=== PATIENT | female | born 1940 | race Caucasian/White ===

== ENCOUNTER 2016-09-02 12:30 | Emergency (ER) | payer OTHER ==
[~2016-09-02] VITALS: Ht 167.6 cm; Wt 113.7 kg
[~2016-09-02 12:30] MED LIST: AMOX500C3 PO; CALC0.2510 PO; CRAN500C6 PO; CYAN100T PO; DILT-202 PO; FURO80TA63 PO; INSUINJ4 SQ; ISOS30TA3 PO; LEVA1.258 INH; LOSA1TAB38 PO; LOVA40TA3 PO; NITR0.4S UT; NVLGI SC; OMEP20TA PO; TPRSR/25 PO; VSC/5 PO; WARF4TAB PO; WARF4TAB8 PO
[2016-09-02 12:39] VITALS: TEMP 36.7; Ht 167.6 cm; Wt 113.7 kg
[2016-09-02] MEDS ORDERED: ALBUT/IPRATROP 3MG/0.5MG NEB 3 ML VIAL INH STA (12:54)
[2016-09-02 12:58] VITALS: O2SAT 100
--- NOTE | 2016-09-02 13:04 | EMERGENCY ROOM VISIT NOTE ---
History Report prepared by Natalya: Davis Metcalf Under the Supervision of: Dr. Antonio Toro D.O. First contact with patient: 12:47 Chief Complaint: SHORTNESS OF BREATH Stated Complaint: IRREGULAR HEART BEAT Nursing Triage Summary: pt presents to ed via als from home with c/o shortness of breath. pt states began at 0800 with sudden onset of sob. pt states having a little pain under left breast. pt hx of pe in 2001. pt states has been feeling tired more frequently. denies cough, fever, any other symptoms. History of Present Illness The patient is a 76 year old female who presents to the Emergency Room with complaints of sudden shortness of breath that started around 0800 this morning. Per the nursing staff, the patient reports feeling fine around 0630 when she first woke up. She also felt fine when she went to bed last night. The patient says she also could not walk when the shortness of breath started. She says she "could not breathe" and lying flat makes the shortness of breath worse. She did not take anything for her symptom, and she was not given anything on the way in. She says she currently is not as short of breath as before, but it still is hard to breathe. The patient is on inhalers, but she was not given inhalers on the way in either. The patient denies a fever, cough, nausea, vomiting, abdominal pain, or any new swelling in her legs. She has chronic problems with urinating, and she has been treated for this by physical therapy. The patient has a history of COPD, pulmonary embolism, and a heart attack. She has no CHF or cancer history. The patient is diabetic, and she has a chronic problem with fluid in her legs. The patient is on blood thinners. She has never been on dialysis. Source of History: patient, nursing staff Onset: 0800 this morning Position: other (global - shortness of breath) Symptom Intensity: "could not breathe" Timing: other (sudden) Modifying Factors (Worsening): other (lying flat) Associated Symptoms: No abdominal pain, No cough, No fevers, No nausea, No vomiting Note: Associated symptoms: Hard to walk. Review of Systems See HPI for pertinent positives & negatives. A total of 10 systems reviewed and were otherwise negative. Past Medical & Surgical Medical Problems: (1) Appendectomy (2) Asthma (3) C. 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 Family History FHx: heart disease Social History Smoking Status: Former Smoker Alcohol Use: none Drug Use: none Marital Status: Housing Status: lives alone Occupation Status: retired Current/Historical Medications Scheduled Beclomethasone Dip (Qvar), Unknown Dose INH UD Calcitriol (Rocaltrol Cap), 1 CAP PO DAILY Cranberry (Vaccinium Macrocarp (Cranberry), 400 MG PO DAILY Cyanocobalamin (Vitamin B-12), 100 MCG PO DAILY Diltiazem HCl (Diltiazem Cd), 120 MG PO DAILY Furosemide (Lasix), 1 TAB PO BID Insulin Glargine (Lantus Solostar Pen), 11 UNIT SQ QPM Insulin Glargine (Lantus Solostar Pen), 25 UNIT SQ QAM Isosorbide Mononitrate Ext Rel (Imdur Ext Rel), 30 MG PO DAILY Levofloxacin (Levaquin), 500 MG PO DAILY Losartan Potassium (Cozaar), 100 MG PO DAILY Lovastatin (Mevacor), 80 MG PO HS Metoprolol Succinate (Metoprolol Succinate ER), 25 MG PO DAILY Omeprazole (Omeprazole), 1 TAB PO DAILY Solifenacin (Vesicare), 5 MG PO DAILY Umeclidinium-Vilanterol (Anoro Ellipta 62.5-25 Mcg/INH), 1 DOSE INH UD Warfarin Sod (Jantoven), 2 MG PO 2XWK Warfarin Sodium (Coumadin), 1 TAB PO 5XWK Scheduled PRN Insulin Aspart (Novolog), UNITS SC ACHS PRN for sliding scale Levalbuterol Hcl (Levalbuterol Hcl), 1 VIAL INH Q4 PRN for SOB/Wheezing Nitroglycerin (Nitrostat), 0.4 MG UT PRN PRN for Chest Pain Allergies Coded Allergies: Acetaminophen (Verified Allergy, Unknown, UNKNOWN, 09/02/16) INFO FROM PT Codeine (Verified Allergy, Unknown, UNKNOWN, 09/02/16) INFO FROM PT Aspirin (Verified Adverse Reaction, Intermediate, (ULCER), 09/02/16) Venlafaxine (Verified Adverse Reaction, Intermediate, DROWINESS/ CONFUSION , 09/02/16) Cephalexin (Verified Adverse Reaction, Mild, DROWSINESS, UNABLE TO DRIVE, UPSET STOMACH, 09/02/16) Oxycodone (Verified Adverse Reaction, Mild, n/v, 09/02/16) gmg Physical Exam Vital Signs Date Time Temp Pulse Resp B/P Pulse Ox O2 Delivery O2 Flow Rate FiO2 09/02/16 17:16 79 20 177/61 97 Room Air 09/02/16 15:55 85 16 173/104 94 Room Air 09/02/16 13:56 101 25 166/86 96 Nasal Cannula 3.0 09/02/16 12:59 76 09/02/16 12:58 100 Nasal Cannula 2.0 09/02/16 12:46 99 09/02/16 12:39 36.7 86 24 204/71 99 Room Air Physical Exam GENERAL: Patient is awake, alert, mildly anxious appearing but comfortable. Does not appear to be in pain. EYES: The conjunctivae are clear. The pupils are round and reactive. EARS, NOSE, MOUTH AND THROAT: The nose is without any evidence of any deformity. Mucous membranes are moist tongue is midline NECK: The neck is nontender and supple. RESPIRATORY: Lung sounds diminished at both bases. No tachypnea or conversational dyspnea noted. CARDIOVASCULAR: Regular rate and rhythm noted there no murmurs rubs or gallops normal S1 normal S2 GASTROINTESTINAL: The abdomen is soft. Bowel sounds are present in all quadrants. Abdomen is nontender MUSCULOSKELETAL/EXTREMITIES: There is no evidence of gross deformity full range of motion is noted in the hips and shoulders SKIN: Pedal edema bilaterally. NEUROLOGIC: Patient is awake alert and oriented x3. Medical Decision & Procedures ER Provider Diagnostic Interpretation: X ray results and stated below per my interpretation and radiology interpretation. Other radiology results per my review and radiologist interpretation: CHEST ONE VIEW PORTABLE CLINICAL HISTORY: EVALUATE RESPIRATORY DISTRESS. DYSPNEA chest pain COMPARISON STUDY: 07/11/2016 FINDINGS: Mild stable cardiomegaly. Chronic ankle prominence left base. Lungs otherwise are clear. Potential developing nodular density right midlung. No focal infiltrate. IMPRESSION: Chronic change. Mild stable cardiomegaly. Potential developing nodular density right midlung with CT of the chest recommended Electronically signed by: Jaleel Xie M.D. 09/02/2016 1:40 PM CHEST CTA for PULMONARY ARTERIES CT DOSE: 461.08 mGy.cm HISTORY: Chest pain dyspnea TECHNIQUE: Multiaxial CT images of the chest were performed following the intravenous administration of contrast to evaluate the pulmonary arteries. Maximal intensity projection images were also obtained. COMPARISON STUDY: Chest series dated 09/02/2016 FINDINGS: There is a normal caliber thoracic aorta with no evidence for dissection. There is no evidence for pulmonary embolus. No no focal infiltrate. Mild emphysematous change. Scattered pleural and parenchymal scarlike densities. 9 mm nodular density anterior aspect right upper lobe transaxial image 203. This appears to relate to the density seen on chest filming. PET scanning for solitary pulmonary nodule is suggested. Moderate distal esophageal wall thickening IMPRESSION: 1. Study is negative for pulmonary embolus. 2. Lungs are considered clear. 3. Moderate emphysematous change with minimal scattered atelectatic and/or fibrotic changes considered chronic. 4. Moderate cardiac megaly. 5. 9 mm solitary pulmonary nodule anterior aspect right upper lobe. When the patient's current symptoms have improved or resolved, PET/CT scanning would be beneficial to exclude a metabolically active parenchymal nodule. 6. note is made of moderate esophageal wall thickening of the distal one third of the esophagus. Endoscopic evaluation is indicated on a routine outpatient basis. Electronically signed by: Jaleel Xie M.D. 09/02/2016 2:30 PM Laboratory Results 09/02/16 12:44 Red Blood Count 3.80, Mean Corpuscular Volume 91.1, Mean Corpuscular Hemoglobin 30.5, Mean Corpuscular Hemoglobin Concent 33.5, Mean Platelet Volume 10.5, Neutrophils (%) (Auto) 77.9, Lymphocytes (%) (Auto) 12.1, Monocytes (%) (Auto) 9.6, Eosinophils (%) (Auto) 0.2, Basophils (%) (Auto) 0.1, Neutrophils # (Auto) 6.47, Lymphocytes # (Auto) 1.01, Monocytes # (Auto) 0.80, Eosinophils # (Auto) 0.02, Basophils # (Auto) 0.01 09/02/16 12:44 Test 09/02/16 12:44 09/02/16 12:59 09/02/16 13:05 White Blood Count 8.32 K/uL (4.8-10.8) Red Blood Count 3.80 M/uL (4.2-5.4) Hemoglobin 11.6 g/dL (12.0-16.0) Hematocrit 34.6 % (37-47) Mean Corpuscular Volume 91.1 fL (80-100) Mean Corpuscular Hemoglobin 30.5 pg (25-34) Mean Corpuscular Hemoglobin Concent 33.5 g/dl (32-36) Platelet Count 111 K/uL (130-400) Mean Platelet Volume 10.5 fL (7.4-10.4) Neutrophils (%) (Auto) 77.9 % Lymphocytes (%) (Auto) 12.1 % Monocytes (%) (Auto) 9.6 % Eosinophils (%) (Auto) 0.2 % Basophils (%) (Auto) 0.1 % Neutrophils # (Auto) 6.47 K/uL (1.4-6.5) Lymphocytes # (Auto) 1.01 K/uL (1.2-3.4) Monocytes # (Auto) 0.80 K/uL (0.11-0.59) Eosinophils # (Auto) 0.02 K/uL (0-0.5) Basophils # (Auto) 0.01 K/uL (0-0.2) RDW Standard Deviation 47.9 fL (36.4-46.3) RDW Coefficient of Variation 14.4 % (11.5-14.5) Immature Granulocyte % (Auto) 0.1 % Immature Granulocyte # (Auto) 0.01 K/uL (0.00-0.02) Est Creatinine Clear Calc Drug Dose 37.1 ml/min Estimated GFR () 35.4 Estimated GFR (Non- 30.5 BUN/Creatinine Ratio 12.5 (10-20) Calcium Level 9.2 mg/dl (8.5-10.1) Total Bilirubin 0.9 mg/dl (0.2-1) Aspartate Amino Transf (AST/SGOT) 13 U/L (15-37) Alanine Aminotransferase (ALT/SGPT) 15 U/L (12-78) Alkaline Phosphatase 132 U/L (45-117) Total Creatine Kinase 74 U/L (26-192) Creatine Kinase MB < 0.5 ng/ml (0.5-3.6) Creatine Kinase MB Ratio (0-3.0) Troponin I < 0.015 ng/ml (0-0.045) Total Protein 6.8 gm/dl (6.4-8.2) Albumin 3.2 gm/dl (3.4-5.0) Globulin 3.6 gm/dl (2.5-4.0) Albumin/Globulin Ratio 0.9 (0.9-2) Bedside Hemoglobin 11.9 g/dl (12.0-16.0) Bedside Hematocrit 35 % (37-47) Bedside Sodium 137 mEq/L (135-144) Bedside Potassium 3.8 mEq/L (3.3-5.0) Bedside Chloride 97 mEq/L (101-112) Bedside Total CO2 27 mEq/l (24-31) Anion Gap 19.0 mmol/L (16-25) Bedside Blood Urea Nitrogen 20 mg/dl (7-18) Bedside Creatinine 1.4 mg/dl (0.6-1.3) Bedside Glucose (other) 259 mg/dl (70-99) Bedside Ionized Calcium (Kendy) 1.12 mmol/l (1.12-1.32) Urine Color YELLOW Urine Appearance CLOUDY (CLEAR) Urine pH 7.5 (4.5-7.5) Urine Specific [place] 1.007 (1.000-1.030) Urine Protein NEG (NEG) Urine Glucose (UA) 1+ (NEG) Urine Ketones NEG (NEG) Urine Occult Blood TRACE (NEG) Urine Nitrite NEG (NEG) Urine Bilirubin NEG (NEG) Urine Urobilinogen NEG (NEG) Urine Leukocyte Esterase MODERATE (NEG) Urine WBC (Auto) >30 /hpf (0-5) Urine RBC (Auto) 5-10 /hpf (0-4) Urine Hyaline Casts (Auto) 1-5 /lpf (0-5) Urine Epithelial Cells (Auto) 10-20 /lpf (0-5) Urine Bacteria (Auto) NEG (NEG) Laboratory results per my review. Medications Administered Medications (Trade) Dose Ordered Sig/Rose Route Start Time Stop Time Status Last Admin Dose Admin Albuterol/ Ipratropium 3 ml 3 ml NOW STAT INH 09/02/16 12:54 09/02/16 12:56 DC 09/02/16 13:07 3 ML Sodium Chloride (Nss 500ml) 500 ml @ 999 mls/hr Q31M STAT IV 09/02/16 13:46 09/02/16 14:16 DC 09/02/16 13:46 999 MLS/HR Levofloxacin (Levaquin / D5W) 750 mg NOW STAT IV 09/02/16 13:47 09/02/16 13:48 DC 09/02/16 14:24 750 MG Levofloxacin (Levaquin / D5W) 750 mg NOW STAT IV 09/02/16 15:48 09/02/16 15:50 DC 09/02/16 15:56 750 MG ECG Indication: SOB/dyspnea Rate (beats per minute): 78 Rhythm: normal sinus Findings: no ectopy, other (no acute ST segment abnormalities) Change: no significant change (from May 15 2016) ED Course 1250: The patient was evaluated in room B10. A complete history and physical examination were performed. 1254: Ordered Duoneb 3 ml INH. 1346: Ordered NSS 500 ml @ 999 mls/hr IV. 1347: Ordered Levaquin / D5W 750 mg IV. 1517: I reevaluated the patient and she is resting comfortably. The patient verbally expressed agreement and understanding of the treatment plan. The patient will be discharged. Medical Decision Additional history obtained from the nursing staff. The patient's history was concerning for respiratory difficulties. Differential diagnosis: Etiologies such as infections, reactive airway disease, pneumonia, pneumothorax , COPD, CHF, cardiac ischemia, pulmonary embolism, musculoskeletal, gastrointestinal, as well as others were entertained. The patient is a 76-year-old female who presented to the emergency department for evaluation of shortness of breath. I do feel the patient's condition is consistent with COPD. She was treated with bronchodilator therapy in emergency department. She was also treated with IV antibiotics for presumed urinary tract infection based on her urinalysis. I discussed patient's laboratory and radiographic studies with her. Given her pain as well as shortness of breath a CT the chest was also ordered. I discussed the results of the CT with her including the findings of pulmonary nodule as well as the findings and her esophagus. She was encouraged to rest and avoid any strenuous activity. She was encouraged to follow-up with her family doctor this week for reevaluation but return to the emergency department immediately if symptoms change worsen or if the need arises. Impression Primary Impression: COPD exacerbation Additional Impression: UTI (urinary tract infection) Scribe Attestation The scribe's documentation has been prepared under my direction and personally reviewed by me in its entirety. I confirm that the note above accurately reflects all work, treatment, procedures, and medical decision making performed by me. Departure Information Dispostion Home / Self-Care Prescriptions Levofloxacin (Levaquin) 500 Mg Tab 500 MG PO DAILY, #7 TAB Prov: Antonio Toro, DO 09/02/16 Referrals Kerry Waterman D.OMatthew (PCP) Forms HOME CARE DOCUMENTATION FORM, IMPORTANT VISIT INFORMATION Patient Instructions A Signature Page, COPD, My [facility], Urinary Tract Anatomy Ch Additional Instructions Continue all outpatient medications as prescribed. Rest and avoid any strenuous activity. Follow-up with your primary care physician tomorrow as scheduled. Return to the emergency department if symptoms worsen or if need arises. Discuss with your family further testing he might require such as a repeat scan of the chest when you're symptoms have improved as well as a follow-up appointment with the spa assistant manager to investigate the findings noted on the CAT scan of the chest today pertaining to your esophagus.
[2016-09-02 13:06] LABS: BASO % 0.1 %; BASO ABS # 0.01 K/uL (0-0.2); COMPLETE YES; EOS % 0.2 %; HEMATOCRIT 34.6 % (37-47); IG% 0.1 %; LYMPH % 12.1 %; LYMPH ABS # 1.01 K/uL (1.2-3.4); MEAN CELL VOLUME 91.1 fL (80-100); MEAN CORPUSCULAR HEMOGLOBIN 30.5 pg (25-34); MEAN CORPUSCULAR HGB CONC 33.5 g/dl (32-36); MEAN PLATELET VOLUME 10.5 fL (7.4-10.4); MONO % 9.6 %; NEUT % 77.9 %; PLATELET COUNT 111 K/uL (130-400); WHITE BLOOD COUNT 8.32 K/uL (4.8-10.8)
[2016-09-02 13:15] LABS: ISTAT CREATININE 1.4 mg/dl (0.6-1.3); ISTAT HEMOGLOBIN 11.9 g/dl (12.0-16.0); ISTAT IONIZED CALCIUM 1.12 mmol/l (1.12-1.32)
[2016-09-02 13:17] LABS: ALT/SGPT 15 U/L (12-78); BLOOD UREA NITROGEN 20 mg/dl (7-18); BUN/CREATININE RATIO 12.5 (10-20); CALCIUM 9.2 mg/dl (8.5-10.1); CARBON DIOXIDE 29 mmol/L (21-32); CHLORIDE 101 mmol/L (98-107); GLUCOSE 246 mg/dl (70-99); POTASSIUM 3.9 mmol/L (3.5-5.1); SODIUM 139 mmol/L (136-145)
[2016-09-02 13:22] LABS: ALB/GLOB RATIO 0.9 (0.9-2); ALKALINE PHOSPHATASE 132 U/L (45-117); AST/SGOT 13 U/L (15-37)
[2016-09-02 13:27] LABS: URINE APPEARANCE CLOUDY (CLEAR); URINE BILIRUBIN NEG (NEG); URINE COLOR YELLOW; URINE NITRITE NEG (NEG); URINE PH 7.5 (4.5-7.5); URINE SPECIFIC GRAVITY 1.007 (1.000-1.030); UROBILINOGEN NEG (NEG)
[2016-09-02 13:34] LABS: MANUAL MICROSCOPIC REQUIRED? NO; REVIEW REQ? NO
--- NOTE | 2016-09-02 13:42 | DIAGNOSTIC IMAGING REPORT ---
CHEST ONE VIEW PORTABLE CLINICAL HISTORY: EVALUATE RESPIRATORY DISTRESS. DYSPNEA chest pain COMPARISON STUDY: 07/11/2016 FINDINGS: Mild stable cardiomegaly. Chronic ankle prominence left base. Lungs otherwise are clear. Potential developing nodular density right midlung. No focal infiltrate. IMPRESSION: Chronic change. Mild stable cardiomegaly. Potential developing nodular density right midlung with CT of the chest recommended Electronically signed by: Jaleel Xie M.D. 09/02/2016 1:40 PM
[2016-09-02] MEDS ORDERED: SODIUM CHLORIDE 0.9% 500ML 500 ML IV STA (13:46)
[2016-09-02] MEDS ORDERED: LEVAQUIN 750MG / 150ML D5W IV STA ×2 (13:47→15:48)
[2016-09-02] MEDS ORDERED: UMEC1AER INH (13:57)
[2016-09-02] MEDS ORDERED: QVRINH80 INH (13:57)
[2016-09-02] MEDS ORDERED: CRAN400C PO (13:57)
[2016-09-02] MEDS ORDERED: OPTIRAY 320 IV PRN (14:30)
--- NOTE | 2016-09-02 14:32 | DIAGNOSTIC IMAGING REPORT ---
CHEST CTA for PULMONARY ARTERIES CT DOSE: 461.08 mGy.cm HISTORY: Chest pain dyspnea TECHNIQUE: Multiaxial CT images of the chest were performed following the intravenous administration of contrast to evaluate the pulmonary arteries. Maximal intensity projection images were also obtained. COMPARISON STUDY: Chest series dated 09/02/2016 FINDINGS: There is a normal caliber thoracic aorta with no evidence for dissection. There is no evidence for pulmonary embolus. No no focal infiltrate. Mild emphysematous change. Scattered pleural and parenchymal scarlike densities. 9 mm nodular density anterior aspect right upper lobe transaxial image 203. This appears to relate to the density seen on chest filming. PET scanning for solitary pulmonary nodule is suggested. Moderate distal esophageal wall thickening IMPRESSION: 1. Study is negative for pulmonary embolus. 2. Lungs are considered clear. 3. Moderate emphysematous change with minimal scattered atelectatic and/or fibrotic changes considered chronic. 4. Moderate cardiac megaly. 5. 9 mm solitary pulmonary nodule anterior aspect right upper lobe. When the patient's current symptoms have improved or resolved, PET/CT scanning would be beneficial to exclude a metabolically active parenchymal nodule. 6. note is made of moderate esophageal wall thickening of the distal one third of the esophagus. Endoscopic evaluation is indicated on a routine outpatient basis. Electronically signed by: Jaleel Xie M.D. 09/02/2016 2:30 PM
[2016-09-02] MEDS ORDERED: LEVO-366 PO (15:28)
[2016-09-02 17:16] VITALS: BP 177/61; PULSE 79; O2SAT 97
[2016-09-14] MEDS ORDERED: FERR1TAB62 PO (13:03)
[2017-01-06] MEDS ORDERED: CLOT-51 TOP (17:09)
[2017-02-13] MEDS ORDERED: LVQ750 PO (16:14)
[2017-02-13] MEDS ORDERED: LCTX PO (16:14)
[2017-03-18] MEDS ORDERED: FURO80TA63 PO (15:02)
[2017-03-18] MEDS ORDERED: DXY100 PO (15:02)
[2017-03-18] MEDS ORDERED: BENZ100C7 PO (15:02)
[2017-03-18] MEDS ORDERED: FURO40TA3 PO (15:18)
[2017-03-26] MEDS ORDERED: LCTX PO (12:48)
[2017-03-26] MEDS ORDERED: LVQ750 PO (12:48)
[2017-08-13] MEDS ORDERED: LVQ500 PO (15:07)
[2017-08-13] MEDS ORDERED: DILT-202 PO (15:07)
[2017-08-13] MEDS ORDERED: FURO40TA3 PO (15:07)
[2017-08-13] MEDS ORDERED: IMDSR30 PO (15:07)
== END 2016-09-02 17:45 | disposition home or self-care (01) ==
LOC: EDBD 12:30 → C.EDB 12:34
DX: J44.1 Chronic obstructive pulmonary disease with (acute) exacerbation (principal); N39.0 Urinary tract infection, site not specified; I25.2 Old myocardial infarction; E11.9 Type 2 diabetes mellitus without complications; I12.9 Hypertensive chronic kidney disease with stage 1 through stage 4 chronic kidney disease, or unspecified chronic kidney disease; I48.91 Unspecified atrial fibrillation; J45.909 Unspecified asthma, uncomplicated; E11.22 Type 2 diabetes mellitus with diabetic chronic kidney disease; K21.9 Gastro-esophageal reflux disease without esophagitis; E11.42 Type 2 diabetes mellitus with diabetic polyneuropathy; N18.9 Chronic kidney disease, unspecified; E11.43 Type 2 diabetes mellitus with diabetic autonomic (poly)neuropathy; Z86.711 Personal history of pulmonary embolism; Z86.73 Personal history of transient ischemic attack (TIA), and cerebral infarction without residual deficits; Z79.01 Long term (current) use of anticoagulants; Z79.4 Long term (current) use of insulin; Z79.899 Other long term (current) drug therapy; Z87.891 Personal history of nicotine dependence

== ENCOUNTER 2016-09-07 02:48 | Inpatient (IN) | payer OTHER ==
[~2016-09-07] VITALS: Ht 166.4 cm; Wt 113.5 kg
[2016-09-07] VITALS (18 sets, daily range): BP systolic 101–176; BP diastolic 53–78; PULSE 63–81; TEMP 36.3–36.7; O2SAT 94–100; Ht 166.4 cm; Wt 113.5 kg
[~2016-09-07 02:48] MED LIST changes: -AMOX500C3 PO; +CRAN400C PO; -CRAN500C6 PO; +CRDCD120 PO; -DILT-202 PO; +LEVO-366 PO; +QVRINH80 INH; +UMEC1AER INH
--- NOTE | 2016-09-07 02:59 | EMERGENCY ROOM VISIT NOTE ---
History Report prepared by Natalya: Abbe Gagnon Under the Supervision of: Dr. Trsita Trivedi D.O. First contact with patient: 02:49 Chief Complaint: ILLNESS Stated Complaint: illness History of Present Illness The patient is a 76 year old female with a history of COPD who presents to the Emergency Room with complaints of persistent generalized weakness since she woke up to go to the bathroom tonight. The patient became weak and fell backwards into her bed. She was also short of breath and generally "felt funny. " The patient was not lightheaded, dizzy, or diaphoretic. The patient was unable to get up after she fell into her bed so she called an ambulance. She required a rolling walker to get to the ambulance. The patient was tired but felt fine when she went to sleep. She was active during the day. Source of History: patient Onset: tonight Position: other (generalized) Quality: other (weakness) Timing: other (persistent) Associated Symptoms: + SOB, No diaphoresis Note: No lightheaded or dizziness. Review of Systems See HPI for pertinent positives & negatives. A total of 10 systems reviewed and were otherwise negative. Past Medical & Surgical Medical Problems: (1) Appendectomy (2) Asthma (3) C. 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 Family History FHx: heart disease Social History Smoking Status: Former Smoker Alcohol Use: none Drug Use: none Marital Status: Housing Status: lives alone Occupation Status: retired Current/Historical Medications Scheduled Beclomethasone Dip (Qvar), 1 PUFF INH BID Calcitriol (Rocaltrol Cap), 0.25 MCG PO DAILY Cranberry (Vaccinium Macrocarp (Cranberry), 400 MG PO BID Cyanocobalamin (Vitamin B-12), 500 MCG PO DAILY Diltiazem Hcl Coated Beads (Cardizem Cd), 120 MG PO DAILY Furosemide (Lasix), 80 MG PO BID Insulin Glargine (Lantus), 25 UNITS SQ QAM Insulin Glargine (Lantus), 11 UNITS SQ EVENING MEAL Isosorbide Mononitrate Ext Rel (Imdur Ext Rel), 30 MG PO DAILY Levofloxacin (Levaquin), 500 MG PO DAILY Losartan Potassium (Cozaar), 50 MG PO DAILY Lovastatin (Mevacor), 80 MG PO HS Metoprolol Succinate (Metoprolol Succinate ER), 1,205 MG PO DAILY Omeprazole (Omeprazole), 20 MG PO DAILY Solifenacin (Vesicare), 5 MG PO DAILY Umeclidinium-Vilanterol (Anoro Ellipta 62.5-25 Mcg/INH), 1 PUFF INH DAILY Warfarin Sod (Jantoven), 2 MG PO 2XWK Warfarin Sodium (Coumadin), 4 MG PO 5XWK Scheduled PRN Insulin Aspart (Novolog), UNITS SC ACHS PRN for sliding scale Levalbuterol Hcl (Levalbuterol Hcl), 3 ML INH Q4 PRN for SOB/Wheezing Nitroglycerin (Nitrostat), 0.4 MG UT PRN PRN for Chest Pain Allergies Coded Allergies: Acetaminophen (Verified Allergy, Unknown, UNKNOWN, 09/02/16) INFO FROM PT Codeine (Verified Allergy, Unknown, UNKNOWN, 09/02/16) INFO FROM PT Aspirin (Verified Adverse Reaction, Intermediate, (ULCER), 09/02/16) Venlafaxine (Verified Adverse Reaction, Intermediate, DROWINESS/ CONFUSION , 09/02/16) Cephalexin (Verified Adverse Reaction, Mild, DROWSINESS, UNABLE TO DRIVE, UPSET STOMACH, 09/02/16) Oxycodone (Verified Adverse Reaction, Mild, n/v, 09/02/16) gmg Physical Exam Vital Signs Date Time Temp Pulse Resp B/P Pulse Ox O2 Delivery O2 Flow Rate FiO2 09/07/16 05:00 75 22 97 Room Air 09/07/16 04:39 77 17 169/87 100 Room Air 09/07/16 03:30 75 09/07/16 02:57 36.7 81 25 163/79 100 Room Air Physical Exam General: Morbidly obese female. HEENT: Head - normocephalic and atraumatic Pupils are equal, round, and reactive to light. Extraocular eye muscles are intact, and sclera are anicteric. Nose - moist nasal mucosa without discharge. Mouth - moist buccal mucosa. Oropharynx is nonerythematous and there is no tonsillar exudate or edema noted. Neck: Supple; no JVD, nuchal rigidity, cervical lymphadenopathy, or auscultated bruits. Heart: Regular rate and rhythm. There is a normal S1 and S2 with no murmurs, clicks, or gallops appreciated. Sounds are distant secondary to body habitus. Lungs: Clear to auscultation bilaterally with no wheezes, rales, or rhonchi. Abdomen: Soft, completely nontender, nondistended, with good bowel sounds. There are no palpable pulsatile masses or hepatosplenomegaly. There is no guarding, rigidity, or rebound noted. Extremities: No evidence of cyanosis, clubbing, or edema. There are easily palpable peripheral pulses. Bruising on both upper extremities. Skin: Pale, Skin is dry with poor turgor, no rashes. Rectal: Bright red blood. Medical Decision & Procedures ER Provider Diagnostic Interpretation: X-ray results as stated below per interpretation by me. ONE VIEW PORTABLE: Cardiomegaly. No pneumonia or pleural effusion. Laboratory Results 09/07/16 03:10 Red Blood Count 2.72, Mean Corpuscular Volume 88.6, Mean Corpuscular Hemoglobin 29.8, Mean Corpuscular Hemoglobin Concent 33.6, Mean Platelet Volume 10.0, Neutrophils (%) (Auto) 79.4, Lymphocytes (%) (Auto) 12.2, Monocytes (%) (Auto) 7.8, Eosinophils (%) (Auto) 0.0, Basophils (%) (Auto) 0.0, Neutrophils # (Auto) 5.52, Lymphocytes # (Auto) 0.85, Monocytes # (Auto) 0.54, Eosinophils # (Auto) 0.00, Basophils # (Auto) 0.00 09/07/16 03:10 Test 09/07/16 03:10 09/07/16 04:00 White Blood Count 6.95 K/uL (4.8-10.8) Red Blood Count 2.72 M/uL (4.2-5.4) Hemoglobin 8.1 g/dL (12.0-16.0) Hematocrit 24.1 % (37-47) Mean Corpuscular Volume 88.6 fL (80-100) Mean Corpuscular Hemoglobin 29.8 pg (25-34) Mean Corpuscular Hemoglobin Concent 33.6 g/dl (32-36) Platelet Count 125 K/uL (130-400) Mean Platelet Volume 10.0 fL (7.4-10.4) Neutrophils (%) (Auto) 79.4 % Lymphocytes (%) (Auto) 12.2 % Monocytes (%) (Auto) 7.8 % Eosinophils (%) (Auto) 0.0 % Basophils (%) (Auto) 0.0 % Neutrophils # (Auto) 5.52 K/uL (1.4-6.5) Lymphocytes # (Auto) 0.85 K/uL (1.2-3.4) Monocytes # (Auto) 0.54 K/uL (0.11-0.59) Eosinophils # (Auto) 0.00 K/uL (0-0.5) Basophils # (Auto) 0.00 K/uL (0-0.2) RDW Standard Deviation 46.1 fL (36.4-46.3) RDW Coefficient of Variation 14.2 % (11.5-14.5) Immature Granulocyte % (Auto) 0.6 % Immature Granulocyte # (Auto) 0.04 K/uL (0.00-0.02) Red Blood Cell Morphology Unremarkable Anion Gap 11.0 mmol/L (3-11) Estimated GFR () 24.1 Estimated GFR (Non- 20.8 BUN/Creatinine Ratio 25.2 (10-20) Calcium Level 8.1 mg/dl (8.5-10.1) Total Bilirubin 0.3 mg/dl (0.2-1) Aspartate Amino Transf (AST/SGOT) 6 U/L (15-37) Alanine Aminotransferase (ALT/SGPT) 17 U/L (12-78) Alkaline Phosphatase 82 U/L (45-117) Pro-B-Type Natriuretic Peptide 1277 pg/ml (0-1800) Total Protein 5.3 gm/dl (6.4-8.2) Albumin 2.3 gm/dl (3.4-5.0) Globulin 3.0 gm/dl (2.5-4.0) Albumin/Globulin Ratio 0.8 (0.9-2) Thyroid Stimulating Hormone (TSH) 3.450 uIu/ml (0.300-4.500) Urine Color YELLOW Urine Appearance TURBID (CLEAR) Urine pH 5.0 (4.5-7.5) Urine Specific [place] 1.012 (1.000-1.030) Urine Protein NEG (NEG) Urine Glucose (UA) 1+ (NEG) Urine Ketones NEG (NEG) Urine Occult Blood TRACE (NEG) Urine Nitrite NEG (NEG) Urine Bilirubin NEG (NEG) Urine Urobilinogen NEG (NEG) Urine Leukocyte Esterase LARGE (NEG) Urine WBC (Auto) >30 /hpf (0-5) Urine RBC (Auto) 0-4 /hpf (0-4) Urine Hyaline Casts (Auto) 1-5 /lpf (0-5) Urine Epithelial Cells (Auto) >30 /lpf (0-5) Urine Bacteria (Auto) NEG (NEG) Urine Pathogenic Casts /lpf (0) Urine Yeast (Auto) BUDDING (NONE PRSENT) Laboratory results per my review. Procedure Type and cross for 2 units of packed red blood cells. Transfuse 1 unit of packed blood cells ECG Indication: weakness Rate (beats per minute): 79 Rhythm: normal sinus Findings: no acute ischemic change, no ectopy ED Course 0255: Past medical records reviewed. The patient was evaluated in room B2. A complete history and physical exam was performed. An IV lock was initiated and labs were drawn as above. A twelve-lead EKG was obtained as described above. 0410: The patient denies blood loss or dark stools. She does have significant urinary frequency. 0420: Performed a rectal exam. The patient had bright red blood coming from her rectum. 0429: [facility] The [facility] will be evaluated. Medical Decision The patient is a 76 year old female who presents to the ED with generalized weakness. Differential diagnosis includes anxiety, dehydration, COPD exacerbation, anemia, cardiac dysrhythmia, or ACS. Laboratory interpretation: Hemoglobin 8.1 which is significantly decreased from 11.6 five days ago, no leukocytosis, platelet count 125, BUN 55, creatinine 2.2 up from 1.6 five days ago, glucose 269, LFTs normal, cardiac enzymes negative. Catheterized urinalysis: Yellow turbid urine, trace blood, large leukocyte esterase, greater than 30 white blood cells, negative bacteria, budding yeast. This is a 68-year-old female patient presents to the emergency department office had an onset of generalized weakness. The patient was noted to be significantly anemic. In fact, her hemoglobin dropped by more than 3 g in 5 days. The patient had no history consistent with blood loss anemia. However, when I performed a rectal exam, the patient had a large red blood clot coming from the rectum. At that point, the patient was typed and crossed for 2 units of packed red blood cells. [facility] and [facility] will evaluate for further management. Consults Time Called: [phone] Consulting Phys[facility] Returned Call: [phone]: [facility] The patient will be evaluated. Impression Primary Impression: Blood loss anemia Additional Impressions: GI bleeding, KARLEE (acute kidney injury) Critical Care I have personally spent greater than 30 minutes of critical care time in the direct management of this patient. This includes bedside care, interpretation of diagnostic studies, and testing, discussion with consultants, patient, and family members, and other required patient management activities. This 30 minutes is in excess of all separately billable procedures. Scribe Attestation The scribe's documentation has been prepared under my direction and personally reviewed by me in its entirety. I confirm that the note above accurately reflects all work, treatment, procedures, and medical decision making performed by me. Departure Information Dispostion Being Evaluated By Hospitalist Referrals Kerry aWterman D.O. (PCP) Patient Instructions A Signature Page, My [facility]
[2016-09-07 03:25] LABS: HEMATOCRIT 24.1 % (37-47); IG% 0.6 %; LYMPH % 12.2 %; LYMPH ABS # 0.85 K/uL (1.2-3.4); MEAN CELL VOLUME 88.6 fL (80-100); MEAN CORPUSCULAR HEMOGLOBIN 29.8 pg (25-34); MEAN CORPUSCULAR HGB CONC 33.6 g/dl (32-36); MONO % 7.8 %; NEUT % 79.4 %; PLATELET COUNT 125 K/uL (130-400); RED BLOOD COUNT 2.72 M/uL (4.2-5.4); WHITE BLOOD COUNT 6.95 K/uL (4.8-10.8)
[2016-09-07 03:45] LABS: ALT/SGPT 17 U/L (12-78); AST/SGOT 6 U/L (15-37); BLOOD UREA NITROGEN 55 mg/dl (7-18); BUN/CREATININE RATIO 25.2 (10-20); CALCIUM 8.1 mg/dl (8.5-10.1); CARBON DIOXIDE 25 mmol/L (21-32); CHLORIDE 107 mmol/L (98-107); GLUCOSE 269 mg/dl (70-99); POTASSIUM 3.8 mmol/L (3.5-5.1); SODIUM 143 mmol/L (136-145)
[2016-09-07] MEDS ORDERED: CALC0.2510 PO (03:51)
[2016-09-07 03:53] LABS: COMPLETE YES
[2016-09-07] MEDS ORDERED: INSDGI SQ ×2 (03:53→03:54)
[2016-09-07 03:55] LABS: ALB/GLOB RATIO 0.8 (0.9-2); ALKALINE PHOSPHATASE 82 U/L (45-117); CKMB/CK RATIO 2.4 (0-3.0)
[2016-09-07] MEDS ORDERED: DILT120C51 PO (04:03)
[2016-09-07] MEDS ORDERED: LOVA40TA43 PO (04:08)
[2016-09-07] MEDS ORDERED: CYAN500T PO (04:09)
[2016-09-07 04:44] LABS: URINE APPEARANCE TURBID (CLEAR); URINE BILIRUBIN NEG (NEG); URINE COLOR YELLOW; URINE EPITHELIAL CELL AUTO >30 /lpf (0-5); URINE NITRITE NEG (NEG); URINE SPECIFIC GRAVITY 1.012 (1.000-1.030); UROBILINOGEN NEG (NEG)
[2016-09-07 04:45] LABS: MANUAL MICROSCOPIC REQUIRED? NO; REVIEW REQ? YES
[2016-09-07] MEDS ORDERED: SODIUM CHLORIDE 0.9% 1000ML 1,000 ML IV SCH (05:00)
[2016-09-07] MEDS ORDERED: ALUMINUM/MAGNESIUM/SIMETH (MAALOX MAX) 30 ML UDC PO PRN (05:00)
[2016-09-07] MEDS ORDERED: ONDANSETRON INJ 2 MG/ML 2 ML VIAL IV PRN (05:00)
[2016-09-07] MEDS ORDERED: MAGNESIUM HYDROXIDE SUSP 30 ML UDC PO PRN (05:00)
[2016-09-07] MEDS ORDERED: PANTOprazole INJ 80 MG in DEXTROSE 5% 100ML IV STA (05:11)
[2016-09-07] MEDS ORDERED: GLUCOSE 40% GEL 15 GM TUBE PO PRN (05:15)
[2016-09-07] MEDS ORDERED: DEXTROSE 50% 50 ML SYR IV PRN (05:15)
[2016-09-07] MEDS ORDERED: GLUCOSE 10 TABS/TUBE PO PRN (05:15)
[2016-09-07] MEDS ORDERED: LEVALBUTEROL 1.25MG/3ML NEB INH PRN (05:15)
[2016-09-07] MEDS ORDERED: GLUCAGON FOR INJ 1 MG VIAL SQ PRN (05:15)
[2016-09-07 05:20] LABS: INR 2.6 (0.9-1.1); PROTHROMBIN TIME (PATIENT) 28.5 SECONDS (9.0-12.0)
[2016-09-07] MEDS ORDERED: PHARMACY GLYCEMIC MGMT CONSULT PRN (05:23)
--- NOTE | 2016-09-07 05:40 | History and Physical ---
History & Physical Date & Time of Service: Sep 07, 2016 at 05:12 Chief Complaint: illness Primary Care Physician: Kerry Waterman D.O. History of Present Illness Source: patient, clinic records, hospital records This is a 76 year old female with PMH of CAD, paroxysmal A. Fib on anticoagulation, significant COPD requiring nocturnal O2, insulin-dependent DM2 , CKD stage 3, chronic diastolic CHF, HTN, HLD presents to the ER with dizziness , weakness and generally feeling bad. She states that she was here in the ER on September 02 with difficulty breathing, likely from an exacerbation of her COPD - she was sent home; was seen by primary care as an outpatient and given prednisone. Finished this course - she presented here today because of dizziness , she tried to get out of bed and she fell back into bad; she felt generally weak and had to call EMS to bring her to the ER. Upon presentation here, it was noted that she had a significant drop in her Hgb level as well as a rise in her creatinine. She did not recall any bleeding from anywhere. During exam by ER physician, it was noted patient had blood clot and bright red blood per rectum. Patient states she feels weak and dehydrated. No chest pain. Breathing status is improved from a few days ago. Past Medical/Surgical History Medical Problems: (1) Appendectomy Status: Resolved (2) Asthma Status: Chronic (3) C. difficile colitis Status: Resolved (4) Chronic kidney disease Status: Chronic (5) COPD (chronic obstructive pulmonary disease) Status: Chronic (6) CVA (cerebral vascular accident) Status: Chronic (7) Diabetes mellitus, type II Status: Chronic (8) Gastroparesis Status: Chronic (9) GERD (gastroesophageal reflux disease) Status: Chronic (10) Hyperlipidemia Status: Chronic (11) Hypertension Status: Chronic (12) New onset atrial fibrillation Status: Resolved (13) Pulmonary embolism Status: Chronic (14) Total replacement of hip Status: Resolved Family History FHx: heart disease Social History Smoking Status: Never Smoker Drug Use: none Marital Status: Housing status: lives alone Occupational Status: retired Immunizations History of Influenza Vaccine: N/A Influenza Vaccine Date: May 06, 2013 History of Tetanus Vaccine?: utd History of Pneumococcal: Yes Pneumococcal Date: January 02, 2003 History of Hepatitis B Vaccine: No Multi-Drug Resistant Organisms History of MDRO: No Allergies Coded Allergies: Acetaminophen (Verified Allergy, Unknown, UNKNOWN, 09/02/16) INFO FROM PT Codeine (Verified Allergy, Unknown, UNKNOWN, 09/02/16) INFO FROM PT Aspirin (Verified Adverse Reaction, Intermediate, (ULCER), 09/02/16) Venlafaxine (Verified Adverse Reaction, Intermediate, DROWINESS/ CONFUSION , 09/02/16) Cephalexin (Verified Adverse Reaction, Mild, DROWSINESS, UNABLE TO DRIVE, UPSET STOMACH, 09/02/16) Oxycodone (Verified Adverse Reaction, Mild, n/v, 09/02/16) gmg Home Medications Scheduled Beclomethasone Dip (Qvar), 1 PUFF INH BID Calcitriol (Rocaltrol Cap), 0.25 MCG PO DAILY Cranberry (Vaccinium Macrocarp (Cranberry), 400 MG PO BID Cyanocobalamin (Vitamin B-12), 500 MCG PO DAILY Diltiazem Hcl Coated Beads (Cardizem Cd), 120 MG PO DAILY Furosemide (Lasix), 80 MG PO BID Insulin Glargine (Lantus), 25 UNITS SQ QAM Insulin Glargine (Lantus), 11 UNITS SQ EVENING MEAL Isosorbide Mononitrate Ext Rel (Imdur Ext Rel), 30 MG PO DAILY Levofloxacin (Levaquin), 500 MG PO DAILY Losartan Potassium (Cozaar), 50 MG PO DAILY Lovastatin (Mevacor), 80 MG PO HS Metoprolol Succinate (Metoprolol Succinate ER), 1,205 MG PO DAILY Omeprazole (Omeprazole), 20 MG PO DAILY Solifenacin (Vesicare), 5 MG PO DAILY Umeclidinium-Vilanterol (Anoro Ellipta 62.5-25 Mcg/INH), 1 PUFF INH DAILY Warfarin Sod (Jantoven), 2 MG PO 2XWK Warfarin Sodium (Coumadin), 4 MG PO 5XWK Scheduled PRN Insulin Aspart (Novolog), UNITS SC ACHS PRN for sliding scale Levalbuterol Hcl (Levalbuterol Hcl), 3 ML INH Q4 PRN for SOB/Wheezing Nitroglycerin (Nitrostat), 0.4 MG UT PRN PRN for Chest Pain Review of Systems Constitutional: + fatigue, + weakness, No chills, No fever Respiratory: + shortness of breath (closer to baseline), No cough, No sputum Cardiovascular: + edema (chronic), No chest pain, No orthopnea, No palpitations Abdomen: No diarrhea, No nausea, No pain, No vomiting Musculoskeletal: No joint pain, No muscle pain Genitourinary - Female: + problem reported (dark urine), No dysuria, No urinary frequency, No urinary urgency Neurologic: + balance problems, + vertigo, + weakness, No memory loss, No numbness/tingling, No paralysis Allergic / Immunologic: No environmental allergies, No seasonal allergies Physical Exam Vital Signs Date Time Temp Pulse Resp B/P Pulse Ox O2 Delivery O2 Flow Rate FiO2 09/07/16 04:39 77 17 169/87 100 Room Air 09/07/16 02:57 36.7 81 25 163/79 100 Room Air General Appearance: no apparent distress Head: normocephalic, atraumatic ENT: + pertinent finding (dry mucous membranes) Respiratory/Chest: lungs clear, normal breath sounds, no respiratory distress, no accessory muscle use Cardiovascular: regular rate, rhythm, no murmur Abdomen/GI: normal bowel sounds, non tender, soft Extremities/Musculoskelatal: + pertinent finding (+1 pitting edema b/l LE) Neurologic/Psych: no motor/sensory deficits, alert, normal mood/affect Skin: normal color Lymphatic: no adenopathy Diagnostics Laboratory Results Results Past 24 Hours Test 09/07/16 03:10 09/07/16 04:00 09/07/16 04:59 Range/Units White Blood Count 6.95 4.8-10.8 K/uL Red Blood Count 2.72 4.2-5.4 M/uL Hemoglobin 8.1 12.0-16.0 g/dL Hematocrit 24.1 37-47 % Mean Corpuscular Volume 88.6 80-100 fL Mean Corpuscular Hemoglobin 29.8 25-34 pg Mean Corpuscular Hemoglobin Concent 33.6 32-36 g/dl Platelet Count 125 130-400 K/uL Mean Platelet Volume 10.0 7.4-10.4 fL Neutrophils (%) (Auto) 79.4 % Lymphocytes (%) (Auto) 12.2 % Monocytes (%) (Auto) 7.8 % Eosinophils (%) (Auto) 0.0 % Basophils (%) (Auto) 0.0 % Neutrophils # (Auto) 5.52 1.4-6.5 K/uL Lymphocytes # (Auto) 0.85 1.2-3.4 K/uL Monocytes # (Auto) 0.54 0.11-0.59 K/uL Eosinophils # (Auto) 0.00 0-0.5 K/uL Basophils # (Auto) 0.00 0-0.2 K/uL RDW Standard Deviation 46.1 36.4-46.3 fL RDW Coefficient of Variation 14.2 11.5-14.5 % Immature Granulocyte % (Auto) 0.6 % Immature Granulocyte # (Auto) 0.04 0.00-0.02 K/uL Red Blood Cell Morphology Unremarkable Sodium Level 143 136-145 mmol/L Potassium Level 3.8 3.5-5.1 mmol/L Chloride Level 107 98-107 mmol/L Carbon Dioxide Level 25 21-32 mmol/L Anion Gap 11.0 3-11 mmol/L Blood Urea Nitrogen 55 7-18 mg/dl Creatinine 2.20 0.60-1.20 mg/dl Estimated GFR () 24.1 Estimated GFR (Non- 20.8 BUN/Creatinine Ratio 25.2 10-20 Random Glucose 269 70-99 mg/dl Calcium Level 8.1 8.5-10.1 mg/dl Total Bilirubin 0.3 0.2-1 mg/dl Aspartate Amino Transf (AST/SGOT) 6 15-37 U/L Alanine Aminotransferase (ALT/SGPT) 17 12-78 U/L Alkaline Phosphatase 82 45-117 U/L Total Creatine Kinase 63 26-192 U/L Creatine Kinase MB 1.5 0.5-3.6 ng/ml Creatine Kinase MB Ratio 2.4 0-3.0 Troponin I < 0.015 0-0.045 ng/ml Pro-B-Type Natriuretic Peptide 1277 0-1800 pg/ml Total Protein 5.3 6.4-8.2 gm/dl Albumin 2.3 3.4-5.0 gm/dl Globulin 3.0 2.5-4.0 gm/dl Albumin/Globulin Ratio 0.8 0.9-2 Thyroid Stimulating Hormone (TSH) 3.450 0.300-4.500 uIu/ml Urine Color YELLOW Urine Appearance TURBID CLEAR Urine pH 5.0 4.5-7.5 Urine Specific [place] 1.012 1.000-1.030 Urine Protein NEG NEG Urine Glucose (UA) 1+ NEG Urine Ketones NEG NEG Urine Occult Blood TRACE NEG Urine Nitrite NEG NEG Urine Bilirubin NEG NEG Urine Urobilinogen NEG NEG Urine Leukocyte Esterase LARGE NEG Microbiology Results 09/07/16 Urine Culture, Received Pending EKG NSR Impression Assessment and Plan This is a 76 year old female with PMH of CAD, paroxysmal A. Fib on anticoagulation, significant COPD requiring nocturnal O2, insulin-dependent DM2 , CKD stage 3, chronic diastolic CHF, HTN, HLD presents with dizziness and found to have significant anemia Acute Blood Loss Anemia -->possibly lower GI bleeding -->blood clots noted by ER physician, bright red blood per rectum -->patient did not notice any bright red blood in her stools at home; though noted dark stools -->Hgb dropped from > 11 to 8.1 today from September 02 to today -->patient is hemodynamically stable -->type/cross - transfuse two units PRBCs -->PPI bolus/drip -->IV vitamin K (INR = 2.6) -->recheck H/H four hours post-transfusion -->keep patient NPO; GI consult placed for further evaluation Acute Kidney Injury superimposed on CKD stage 3 -->patient follows with Dr. Alexander, nephrology -->creat was 1.6 on 09/02/16; up to 2.2 today -->gentle hydration and two units PRBCs, likely all related to blood loss anemia Urinary Tract Infection -->UA done on 09/02 showed an infection -->culture with multiple organisms, no sensitivities -->repeat UA looks dirty; repeat culture pending -->started Cipro for now Chronic Diastolic CHF -->patient takes Lasix at home due to chronic diastolic CHF/LE edema -->held diuretic due to KARLEE -->monitor for fluid overload, may need Lasix post-transfusion Paroxysmal Atrial Fibrillation -->patient currently in NSR -->stop Coumadin due to GI bleed -->INR = 2.6; reverse with IV vitamin K -->cont. b-joe Insulin-Dependent DM2 -->patient currently NPO -->was recently on prednisone and sugars have been uncontrolled since then -->stop steroids; insulin sliding scale -->Lantus 10 units BID - while she is NPO, will need to adjust this once she is tolerating diet COPD -->breathing status is closer to baseline -->last week had an exacerbation -->nebulizers as needed on board -->nocturnal O2 HTN -->hold ARB and Lasix due to KARLEE -->continue b-joe -->monitor BP CAD -->should keep Hgb > 8.5 due to CAD -->continue b-joe, statin, imdur -->hold any aspirin, Coumadin due to GI bleed DVT ppx -->SCDs FULL CODE VTE Prophylaxis VTE Risk Assessment Done? Y/N: Yes Risk Level: High
[2016-09-07] MEDS ORDERED: PHYTONADIONE INJ 10 MG in SODIUM CHLORIDE 0.9% 50ML 50 ML IV ONE (05:45)
[2016-09-07] MEDS: PANTOprazole INJ 40 MG in DEXTROSE 5% 100ML IV SCH ×4 (06:33→21:53)
[2016-09-07] MEDS ORDERED: INSULIN ASPART 100 UNITS/ML 3 ML PEN SC SCH (07:00)
[2016-09-07] MEDS: CIPROFLOXACIN / D5W 400 MG in PREMIXED IN D5W 200 ML IV SCH ×3 (07:41→20:24)
--- NOTE | 2016-09-07 07:57 | DIAGNOSTIC IMAGING REPORT ---
CHEST ONE VIEW PORTABLE HISTORY: Short of breath. COMPARISON: Chest 09/02/2016. FINDINGS: Right midlung zone nodule is again noted. The heart is mildly enlarged. This remains unchanged. No pleural effusions. No pneumothorax. Mildly tortuous thoracic aorta. Stable blunting of the left lateral costophrenic sulcus. No evidence for pulmonary edema. No new focal lung consolidations. IMPRESSION: No significant change compared to the prior study. No acute process. Stable right midlung zone nodule which is better appreciated on the recent chest CT. Electronically signed by: Raghavendra Cisneros M.D. 09/07/2016 7:55 AM Dictated Date/Time: 09/07/2016 7:54 AM
[2016-09-07] MEDS ORDERED: NURSING VERBAL MED ORDER ONE (08:45)
[2016-09-07] MEDS: INSULIN GLARGINE SOLOSTAR 100 UNITS/ML 3 ML PEN SC SCH ×2 (08:53→20:43)
[2016-09-07] MEDS: DILTIAZEM HCL 120 MG CAPCR PO SCH (09:07)
[2016-09-07] MEDS: METOPROLOL SUCC 25MG EXT REL TAB PO SCH (09:07)
[2016-09-07] MEDS: ISOSORBIDE MONONITRATE 30 MG TABCR PO SCH (09:07)
[2016-09-07] MEDS ORDERED: INSULIN GLARGINE SOLOSTAR 100 UNITS/ML 3 ML PEN SC SCH (09:15)
[2016-09-07] MEDS ORDERED: BECLOMETHASONE DIP HFA 80 MCG 8.7G INH INH ONE (10:07)
--- NOTE | 2016-09-07 10:46 | Progress Note ---
Medicine Progress Note Date & Time of Visit: Sep 07, 2016 at 10:33. Subjective patient states she feels exhausted laying in bed, appears comfortable, not in distress denies chest pain, dyspnea, dizziness no abdominal pain, nausea/vomiting RN notes scant amount of blood per rectum when turning Objective Last 8 Hrs Date Time Temp Pulse Resp B/P Pulse Ox O2 Delivery O2 Flow Rate FiO2 09/07/16 07:53 36.7 81 20 166/70 100 09/07/16 06:47 36.5 78 20 111/59 98 Nasal Cannula 2.0 09/07/16 06:30 77 09/07/16 05:30 71 24 135/47 97 Room Air 09/07/16 05:00 75 22 97 Room Air 09/07/16 04:39 77 17 169/87 100 Room Air 09/07/16 03:30 75 09/07/16 02:57 36.7 81 25 163/79 100 Room Air Physical Exam: General- oriented x 3, not in distress, speaks in sentences with no effort Head- atraumatic Eyes- PERRL, EOMI, anicteric ENT- oropharynx clear Neck- supple, no JVD, no adenopathy Lungs- clear to auscultation bilaterally Heart- normal rate, regular rhythm; no murmurs Abdomen- normal bowel sounds, soft, nontender Extremities- trace pretibial edema, no calf tenderness; peripheral pulses intact (+) healing wound on the plantar aspect of left foot, no signs of infection Neuro- alert, oriented x 3; no gross focal deficits Skin- warm & dry Laboratory Results: Last 24 Hours Test 09/07/16 03:10 09/07/16 04:00 09/07/16 06:46 White Blood Count 6.95 K/uL Red Blood Count 2.72 M/uL Hemoglobin 8.1 g/dL Hematocrit 24.1 % Mean Corpuscular Volume 88.6 fL Mean Corpuscular Hemoglobin 29.8 pg Mean Corpuscular Hemoglobin Concent 33.6 g/dl Platelet Count 125 K/uL Mean Platelet Volume 10.0 fL Neutrophils (%) (Auto) 79.4 % Lymphocytes (%) (Auto) 12.2 % Monocytes (%) (Auto) 7.8 % Eosinophils (%) (Auto) 0.0 % Basophils (%) (Auto) 0.0 % Neutrophils # (Auto) 5.52 K/uL Lymphocytes # (Auto) 0.85 K/uL Monocytes # (Auto) 0.54 K/uL Eosinophils # (Auto) 0.00 K/uL Basophils # (Auto) 0.00 K/uL RDW Standard Deviation 46.1 fL RDW Coefficient of Variation 14.2 % Immature Granulocyte % (Auto) 0.6 % Immature Granulocyte # (Auto) 0.04 K/uL Red Blood Cell Morphology Unremarkable Prothrombin Time 28.5 SECONDS Prothromb Time International Ratio 2.6 Sodium Level 143 mmol/L Potassium Level 3.8 mmol/L Chloride Level 107 mmol/L Carbon Dioxide Level 25 mmol/L Anion Gap 11.0 mmol/L Blood Urea Nitrogen 55 mg/dl Creatinine 2.20 mg/dl Estimated GFR () 24.1 Estimated GFR (Non- 20.8 BUN/Creatinine Ratio 25.2 Random Glucose 269 mg/dl Calcium Level 8.1 mg/dl Total Bilirubin 0.3 mg/dl Aspartate Amino Transf (AST/SGOT) 6 U/L Alanine Aminotransferase (ALT/SGPT) 17 U/L Alkaline Phosphatase 82 U/L Total Creatine Kinase 63 U/L Creatine Kinase MB 1.5 ng/ml Creatine Kinase MB Ratio 2.4 Troponin I < 0.015 ng/ml Pro-B-Type Natriuretic Peptide 1277 pg/ml Total Protein 5.3 gm/dl Albumin 2.3 gm/dl Globulin 3.0 gm/dl Albumin/Globulin Ratio 0.8 Thyroid Stimulating Hormone (TSH) 3.450 uIu/ml Urine Color YELLOW Urine Appearance TURBID Urine pH 5.0 Urine Specific [place] 1.012 Urine Protein NEG Urine Glucose (UA) 1+ Urine Ketones NEG Urine Occult Blood TRACE Urine Nitrite NEG Urine Bilirubin NEG Urine Urobilinogen NEG Urine Leukocyte Esterase LARGE Urine WBC (Auto) >30 /hpf Urine RBC (Auto) 0-4 /hpf Urine Hyaline Casts (Auto) 1-5 /lpf Urine Epithelial Cells (Auto) >30 /lpf Urine Bacteria (Auto) NEG Urine Pathogenic Casts /lpf Urine Yeast (Auto) BUDDING Bedside Glucose 271 mg/dl Date/Time Source Procedure Growth Status 09/07/16 04:00 Urine,Catheterized Urine Culture Pending Received Assessment & Plan This is a 76 year old female with PMH of CAD, paroxysmal A. Fib on anticoagulation, significant COPD requiring nocturnal O2, insulin-dependent DM2 , CKD stage 3, chronic diastolic CHF, HTN, HLD presents with dizziness and found to have significant anemia Acute Blood Loss Anemia -->possibly lower GI bleeding -->Hgb dropped from > 11 to 8.1 today from September 02 to today - last colonoscopy in 2013: (+) polyp and diverticulosis EGD: duodenal diverticulum - Vit K given for INR 2.6--> repeat INR at 11am pending if continues to bleed, will need FFP - 2 units of PRBC ordered--> repeat at 1pm pending - Protonix Drip, NPO IV fluids after pRBC transfusion PICC line ordered - GI consulted Acute Kidney Injury superimposed on CKD stage 3 -->patient follows with Dr. Alexander, nephrology -->creat was 1.6 on 09/02/16; up to 2.2 today -- monitor crea Urinary Tract Infection -->UA done on 09/02 showed an infection -->culture with multiple organisms, no sensitivities -->repeat UA looks dirty; repeat culture pending -- empiric Cipro Chronic Diastolic CHF -->patient takes Lasix at home due to chronic diastolic CHF/LE edema -->held diuretic due to KARLEE -- monitor volume status Paroxysmal Atrial Fibrillation -->patient currently in NSR -- coumadin held Vit K given repeat INR pending Insulin-Dependent DM2 -->patient currently NPO - Pharmacy consulted COPD - not in exacerbation continue usual inhalers HTN -->hold ARB and Lasix due to KARLEE -- continue Metoprolol, Dilzem, ISMN monitor CAD -->should keep Hgb > 8.5 due to CAD -->continue b-joe, statin, imdur -->hold any aspirin, Coumadin due to GI bleed DVT ppx -->SCDs FULL CODE VTE Prophylaxis VTE Risk Assessment Done? Y/N: Yes Risk Level: High Current Inpatient Medications: Current Inpatient Medications Medications (Trade) Dose Ordered Sig/Rose Route Start Time Stop Time Status Last Admin Dose Admin Al Hydrox/Mg Hydrox/Simethicone (Maalox Max Susp) 15 ml Q4H PRN PO 09/07/16 05:00 10/07/16 04:59 Magnesium Hydroxide (Milk Of Magnesia Susp) 30 ml Q12H PRN PO 09/07/16 05:00 10/07/16 04:59 Ondansetron HCl 4 mg 4 mg Q6H PRN IV 09/07/16 05:00 10/07/16 04:59 Ciprofloxacin/ Dextrose/Prmx (Cipro / D5w/ Premixed D5W) 200 ml @ 100 mls/hr Q12H IV 09/07/16 07:00 09/12/16 06:59 09/07/16 07:41 100 MLS/HR Diltiazem HCl (Cardizem Cd Cap) 120 mg DAILY PO 09/07/16 09:00 10/07/16 08:59 09/07/16 09:07 120 MG Isosorbide Mononitrate (Imdur Ext Rel Tab) 30 mg DAILY PO 09/07/16 09:00 10/07/16 08:59 09/07/16 09:07 30 MG Levalbuterol (Xopenex 1.25MG/ 3ML Neb) 1.25 mg Q4 PRN INH 09/07/16 05:15 10/07/16 05:14 Lovastatin (Mevacor Tab) 80 mg HS PO 09/07/16 21:00 10/07/16 20:59 Miscellaneous Information (Order Awaiting Action) 1 ea QS N/A 09/07/16 08:00 10/07/16 07:59 Metoprolol Succinate 25 mg 25 mg QAM PO 09/07/16 09:00 10/07/16 08:59 09/07/16 09:07 25 MG Pantoprazole Sodium/Dextrose (Protonix Inj/D5 100ml) 100 ml @ 20 mls/hr Q5H IV 09/07/16 05:30 10/07/16 05:29 09/07/16 06:33 20 MLS/HR Insulin Glargine (Lantus Solostar Pen) 10 unit Q12 SC 09/07/16 09:00 10/07/16 08:59 Insulin Aspart (novoLOG ASPART) SLIDING SCALE If C... ACHS SC 09/07/16 07:00 10/07/16 06:59 09/07/16 07:45 7 UNITS Glucose (Glucose 40% Gel) 15-30 GRAMS 15 GRAMS... UD PRN PO 09/07/16 05:15 10/07/16 05:14 Glucose (Glucose Chew Tab) 4-8 Tablets 4 Tabl... UD PRN PO 09/07/16 05:15 10/07/16 05:14 Dextrose (Dextrose 50% 50ML Syringe) 25-50ML OF 50% DW IV FOR... UD PRN IV 09/07/16 05:15 10/07/16 05:14 Glucagon (Glucagon Inj) 1 mg UD PRN SQ 09/07/16 05:15 10/07/16 05:14 Miscellaneous Information (Consult Glycemic Management Pharmacy) 1 ea UD PRN N/A 09/07/16 05:23 10/07/16 05:22 Insulin Glargine (Lantus Solostar Pen) 10 unit Rocha@0915 SC 09/07/16 09:15 09/07/16 12:00 09/07/16 09:21 10 UNIT Beclomethasone Dipropionate (Qvar 80 Mcg Hfa Inhaler) 1 puffs BID INH 09/07/16 21:00 10/07/16 20:59 Miscellaneous Information (Order Awaiting Action) 1 ea QS N/A 09/07/16 16:00 10/07/16 15:59
--- NOTE | 2016-09-07 11:09 | Pharmacy Progress Note ---
Glycemic Control Intl Consult Date of Service Sep 07, 2016. Scope Glycemic Pharmacist consulted by Dr Le on 09/07/16 for glycemic control and to write orders per [facility] inpatient glycemic control protocol Objective Weight (Kilograms): 112.000 Accuchecks BSG (last 24hrs): Test 09/07/16 03:10 09/07/16 06:46 Random Glucose 269 mg/dl (70-99) Bedside Glucose 271 mg/dl (70-90) Laboratory Data (last 24hrs) Test 09/07/16 03:10 Anion Gap 11.0 mmol/L BUN/Creatinine Ratio 25.2 Blood Urea Nitrogen 55 mg/dl Creatinine 2.20 mg/dl Potassium Level 3.8 mmol/L Sodium Level 143 mmol/L White Blood Count 6.95 K/uL Red Blood Count 2.72 M/uL Hemoglobin 8.1 g/dL Hematocrit 24.1 % Mean Corpuscular Volume 88.6 fL Mean Corpuscular Hemoglobin 29.8 pg Mean Corpuscular Hemoglobin Concent 33.6 g/dl Platelet Count 125 K/uL Mean Platelet Volume 10.0 fL Neutrophils (%) (Auto) 79.4 % Lymphocytes (%) (Auto) 12.2 % Monocytes (%) (Auto) 7.8 % Eosinophils (%) (Auto) 0.0 % Basophils (%) (Auto) 0.0 % Neutrophils # (Auto) 5.52 K/uL Lymphocytes # (Auto) 0.85 K/uL Monocytes # (Auto) 0.54 K/uL Eosinophils # (Auto) 0.00 K/uL Basophils # (Auto) 0.00 K/uL HbA1c 7 % on 04/22/16 PENDING for 09/08/16 Recent Pertinent Medications \Outpatient Anti-diabetic Regimen: * Lantus 25 units SQ AM + 11 units SQ PM * NovoLog 2-8 units SQ ACHS PRN The patient is currently receiving: * Basal insulin: Lantus 10 units every 12 hours * Correctional Insulin: Novolog Correction per scale ACHS Goal Range: Low 110 mg/dL - High 140 mg/dL Correction Factor: 20 mg/dL/unit * Prandial insulin: Per carb ratio of 1 unit per 10 grams CHO consumed Risk Factors for Insulin Resistance: * Stress * IVF (PRT gtt mixed in dextrose) Assessment & Plan ASSESSMENT: * 76yo T2DM female known to pharmacy from previous admissions/glycemic consults * Pt with adequate outpatient control per recent A1c in March 2016. Repeat pending for tomorrow AM but value may not be totally reliable based on acute blood loss and possible transfusion * Pt with minimal risk factors for insulin resistance and is NPO. Additionally, Pt with possible increased insulin sensitivity d/t KARLEE. Will start conservative , minimal stress, weight based dosing and titrate based on BSG trends. * ADA & AACE recommend a goal blood sugar range 140-180 mg/dl for the majority of critically ill & non-critically ill patients. However, more stringent targets may be selected in individual cases. Will utilize more stringent target of 120-140mg/dl based for a tightly controlled diabetic at baseline. PLAN FOR INPATIENT GLYCEMIC CONTROL: * Basal insulin with LANTUS 10 units SQ BID - OK to give while NPO * Correctional Insulin with NOVOLOG per scale ACHS or Q6hrs while NPO * Goal Range: Low 120 mg/dL - High 140 mg/dL * Correction Factor: 20 mg/dL/unit * Nutritional / Prandial insulin per carb ratio of 1 unit per 8 grams CHO consumed * Please note that the plan above was derived based on current level of insulin resistance and hospital stress. These recommendations are appropriate for inpatient admission only. Plan of care upon discharge will need to be reassessed to avoid potential outpatient hypo/hyperglycemia. Thank you.
[2016-09-07 11:27] LABS: INR 1.7 (0.9-1.1); PROTHROMBIN TIME (PATIENT) 18.2 SECONDS (9.0-12.0)
[2016-09-07 11:50] LABS: CKMB/CK RATIO 2.5 (0-3.0)
--- NOTE | 2016-09-07 13:41 | DIAGNOSTIC IMAGING REPORT ---
CHEST ONE VIEW PORTABLE HISTORY: picc placement right arm COMPARISON: Chest 09/07/2016. FINDINGS: Interval placement of a right-sided PICC which terminates in the expected location of the distal SVC. No pneumothorax. No pleural effusions. The heart remains mildly enlarged. Bibasilar linear densities favor subsegmental atelectasis. Stable blunting the left lateral costophrenic sulcus. IMPRESSION: Interval placement of a right-sided PICC which terminates in the expected location of the distal SVC. No pneumothorax. There is again noted a 9 mm right midlung zone nodule. Electronically signed by: Raghavendra Cisneros M.D. 09/07/2016 1:40 PM Dictated Date/Time: 09/07/2016 1:37 PM
[2016-09-07] MEDS: INSULIN ASPART 100 UNITS/ML 3 ML PEN SC SCH ×2 (13:53→18:00)
[2016-09-07 14:24] LABS: HEMATOCRIT 25.8 % (37-47)
--- NOTE | 2016-09-07 18:14 | GASTROINTESTINAL CONSULTATION ---
DATE OF CONSULTATION: 09/07/2016 RACE: . ATTENDING PHYSICIAN: Bobo Fernandez MD PRIMARY CARE PHYSICIAN: Kerry Waterman DO CARE AIDE: Manohar Godinez DO REASON FOR CONSULTATION: Acute GI bleeding, hemoglobin drop. HISTORY OF PRESENT ILLNESS: Magui Harp is a 76-year-old female, who presented to the Department of Emergency Medicine with generalized weakness on 09/07/2016. She stated that she had shortness of breath and did not feel well, with general malaise. She states that previously this week it was told that she was having a COPD exacerbation as well as a urinary tract infection; however, when she presented to the ER she was noted to have an H\T\H of 8.1 and 24.1. Her most recent H\T\H prior to this was performed on 09/02/2016 and her H\T\H was noted to be 11.6 and 34.6. She was subsequently admitted. It should be noted that she is on chronic anticoagulation therapy for atrial fibrillation and her INR on arrival was 2.6. It has subsequently declined to 1.7 today. At the time that I saw the patient, she was receiving one unit of packed red blood cells in transfusion. She stated that she did not have any lightheadedness, dizziness, chest pain, shortness of breath, cough or other complaints. She states that nursing staff did tell her that she is still having some small amount of bright red blood per rectum, though she has not had any other complaints including hematemesis or melena. She denies any chronic NSAID use at home and denies any abdominal pain whatsoever at this time. She denies any further complaints. PAST MEDICAL HISTORY: Significant for asthma, COPD, chronic kidney disease, history of C. diff colitis, CVA, type 2 diabetes mellitus, gastroparesis, GERD, hyperlipidemia, hypertension, paroxysmal atrial fibrillation and history of pulmonary embolism. The patient has undergone a colonoscopy in the past with a colon polyp and diverticulosis and has undergone an upper endoscopy previously with findings of a duodenal diverticulum, though I do not have these records at present. PAST SURGICAL HISTORY: Includes appendectomy and total hip replacement. ALLERGIES: TO TYLENOL, CODEINE, ASPIRIN, VENLAFAXINE, CEPHALEXIN, AND OXYCODONE. MEDICATIONS: At present include; lovastatin 80 mg p.o. at bedtime, beclomethasone inhaler twice daily, insulin sliding scale, Cardizem-CD 120 mg p.o. daily, Imdur 30 mg p.o. daily, Toprol-XL 25 mg p.o. q.a.m., Lantus 10 units subQ q. 12 hours, Cipro 400 mg IV q. 12 hours, Protonix 8 mg per hour drip, Maalox 15 mL p.o. q. 4 p.r.n. dyspepsia, milk of magnesia 30 mL p.o. q. 12 hours p.r.n. constipation, Zofran 4 mg IV q. 6 p.r.n. nausea. SOCIAL HISTORY: She is . She lives alone. She denies any tobacco, alcohol or illicit drug use. FAMILY HISTORY: Negative for GI malignancy or inflammatory bowel disease. REVIEW OF SYSTEMS: Negative x12 system review other than pertinent positives listed in the HPI. PHYSICAL EXAMINATION: VITAL SIGNS: Include a temp of 36.6, pulse 76, respirations 18, blood pressure 130/69 and pulse ox of 94% on 2 liters via nasal cannula. GENERAL: She is awake, cooperative, obese, chronic ill-appearing and in no acute distress. HEAD: Normocephalic, atraumatic. EYES: Pupils are equally round. Extraocular muscles are intact. ENT: External evaluation of ears and nose are normal. Oropharynx is clear. NECK: Soft and supple. There is no JVD or lymphadenopathy. CHEST: Clear to auscultation bilaterally. CARDIOVASCULAR SYSTEM: Regular rate and rhythm. ABDOMEN: Soft, nontender and nondistended. Positive bowel sounds. There is no hepatosplenomegaly or stigmata of chronic liver disease. EXTREMITIES: No clubbing, cyanosis or edema. Chest x-ray from yesterday was unremarkable. IMPRESSION: A 76-year-old female, with acute blood loss anemia secondary to painless bright red blood per rectum. The differential diagnoses in this patient include: 1. Diverticular bleeding. 2. Hemorrhoidal bleeding. 3. Arteriovenous malformation. 4. Colon cancer. 5. Brisk upper gastrointestinal bleed, though doubtful without abdominal pain or hemodynamic instability. PLAN: At the present time, I would recommend that the patient have a clear liquid diet today. I would also recommend that she undergo a bowel prep, be kept n.p.o. after midnight and recommend a colonoscopy tomorrow plus or minus an EGD for further evaluation of her GI bleeding. I will follow her clinical course. If you have any further questions or need any further assistance, please do not hesitate in contacting me. I would clearly hold her Coumadin at this time. Once again, thanks for allowing me to participate in the care of this patient. If you have any further questions, please do not hesitate in contacting me.
[2016-09-07 19:46] LABS: HEMATOCRIT 25.9 % (37-47)
[2016-09-07 19:56] LABS: INR 1.3 (0.9-1.1); PROTHROMBIN TIME (PATIENT) 14.6 SECONDS (9.0-12.0)
[2016-09-07 20:14] LABS: CKMB/CK RATIO 2.8 (0-3.0)
[2016-09-07] MEDS: BECLOMETHASONE DIP HFA 80 MCG 8.7G INH INH SCH (20:22)
[2016-09-07] MEDS: LOVASTATIN 20 MG TAB PO SCH (20:23)
[2016-09-07] MEDS ORDERED: LAVAGE SOLUTION 4000ML PO SCH ×2 (22:00)
[2016-09-08] VITALS (12 sets, daily range): BP systolic 114–171; BP diastolic 41–83; PULSE 63–68; TEMP 36.2–36.7; O2SAT 98–100
[2016-09-08] MEDS: INSULIN ASPART 100 UNITS/ML 3 ML PEN SC SCH ×4 (00:13→17:27)
[2016-09-08] MEDS: PANTOprazole INJ 40 MG in DEXTROSE 5% 100ML IV SCH ×3 (01:30→13:26)
[2016-09-08] MEDS ORDERED: INSULIN ASPART 100 UNITS/ML 3 ML PEN SC SCH (03:00)
[2016-09-08] MEDS: CIPROFLOXACIN / D5W 400 MG in PREMIXED IN D5W 200 ML IV SCH (06:39)
[2016-09-08 07:12] LABS: ESTIMATED AVERAGE GLUCOSE 146 mg/dl; HA1C FLAG Normal (Normal)
[2016-09-08] MEDS: ISOSORBIDE MONONITRATE 30 MG TABCR PO SCH (08:33)
[2016-09-08] MEDS: DILTIAZEM HCL 120 MG CAPCR PO SCH (08:33)
[2016-09-08] MEDS: METOPROLOL SUCC 25MG EXT REL TAB PO SCH (08:33)
[2016-09-08] MEDS: BECLOMETHASONE DIP HFA 80 MCG 8.7G INH INH SCH ×2 (08:33→21:09)
[2016-09-08] MEDS: INSULIN GLARGINE SOLOSTAR 100 UNITS/ML 3 ML PEN SC SCH ×2 (08:37→21:11)
[2016-09-08 09:48] LABS: MEAN CELL VOLUME 87.1 fL (80-100); MEAN CORPUSCULAR HEMOGLOBIN 29.3 pg (25-34); MEAN CORPUSCULAR HGB CONC 33.6 g/dl (32-36); RED BLOOD COUNT 2.87 M/uL (4.2-5.4); WHITE BLOOD COUNT 4.77 K/uL (4.8-10.8)
[2016-09-08 10:16] LABS: BASO % 0.2 %; BASO ABS # 0.01 K/uL (0-0.2); COMPLETE YES; EOS % 0.8 %; IG% 1.5 %; LYMPH ABS # 1.43 K/uL (1.2-3.4); MEAN PLATELET VOLUME 10.2 fL (7.4-10.4); MONO % 7.3 %; NEUT % 60.2 %; PLATELET COUNT 95 K/uL (130-400); PLT ESTIMATE DECREASED
[2016-09-08 10:18] LABS: BUN/CREATININE RATIO 25.9 (10-20); CALCIUM 8.6 mg/dl (8.5-10.1); CREATININE 1.4 mg/dl (0.60-1.20); POTASSIUM 3.6 mmol/L (3.5-5.1)
--- NOTE | 2016-09-08 12:09 | GI REPORT ---
Procedure Date: 09/08/2016 11:23 AM Procedure: Upper GI endoscopy Indications: Acute post hemorrhagic anemia Medicines: Monitored Anesthesia Care Complications: No immediate complications. Estimated blood loss: None. Estimated Blood Loss: Estimated blood loss: none. Procedure: Pre-Anesthesia Assessment: - Prior to the procedure, a History and Physical was performed, and patient medications, allergies and sensitivities were reviewed. The patient's tolerance of previous anesthesia was reviewed. - ASA Grade Assessment: III - A patient with severe systemic disease. After obtaining informed consent, the endoscope was passed under direct vision. Throughout the procedure, the patient's blood pressure, pulse, and oxygen saturations were monitored continuously. The On-site loaner was introduced through the mouth, and advanced to the third part of duodenum. The upper GI endoscopy was accomplished with ease. The patient tolerated the procedure well. Findings: The upper third of the esophagus, middle third of the esophagus and lower third of the esophagus were normal. A widely patent Schatzki ring (acquired) was found at the gastroesophageal junction at 40 cm from the incisors. A small hiatus hernia was present. The stomach was normal. A large non-bleeding diverticulum was found in the second part of the duodenum. Impression: - Normal upper third of esophagus, middle third of esophagus and lower third of esophagus. - Widely patent Schatzki ring. - Small hiatus hernia. - Normal stomach. - Non-bleeding duodenal diverticulum. - No specimens collected. Recommendation: - Perform a colonoscopy today. Antonio Reddy M.D. Antonio Reddy MD 09/08/2016 12:07:49 PM This report has been signed electronically. Note Initiated On: 09/08/2016 11:23 AM
--- NOTE | 2016-09-08 12:12 | GI REPORT ---
Procedure Date: 09/08/2016 11:22 AM Procedure: Colonoscopy Indications: Hematochezia Medicines: Monitored Anesthesia Care Complications: No immediate complications. Estimated blood loss: None. Estimated Blood Loss: Estimated blood loss: none. Procedure: Pre-Anesthesia Assessment: - Prior to the procedure, a History and Physical was performed, and patient medications, allergies and sensitivities were reviewed. The patient's tolerance of previous anesthesia was reviewed. - ASA Grade Assessment: III - A patient with severe systemic disease. After I obtained informed consent, the scope was passed under direct vision. Throughout the procedure, the patient's blood pressure, pulse, and oxygen saturations were monitored continuously. The scope was introduced through the anus and advanced to the terminal ileum, with identification of the appendiceal orifice and IC valve. The colonoscopy was performed without difficulty. The patient tolerated the procedure well. The quality of the bowel preparation was adequate to identify polyps. The bowel preparation used was GoLYTELY. Findings: Hematin (altered blood/[id number] material) was found in the entire colon. Scattered small and large-mouthed diverticula were found in the entire colon. The terminal ileum appeared normal without blood or clots. Impression: - Blood in the entire examined colon without evidence of active bleeding. - Diverticulosis in the entire examined colon. - The examined portion of the ileum was normal. - No bleeding site identified. Recommendation: - [facility]. Antonio Reddy M.D. Antonio Reddy MD 09/08/2016 12:11:40 PM This report has been signed electronically. Note Initiated On: 09/08/2016 11:22 AM
[2016-09-08] MEDS ORDERED: LIDOCAINE HCL 2% 2 ML VIAL (20MG/ML) ONE (12:43)
[2016-09-08] MEDS ORDERED: EpHEDrine SULFATE 50MG/5ML SYR ONE (12:43)
[2016-09-08] MEDS ORDERED: PROPOFOL IV EMULSION 10 MG/ML 20 ML VIAL IV ONE (12:43)
--- NOTE | 2016-09-08 16:04 | Progress Note ---
Medicine Progress Note Date & Time of Visit: Sep 08, 2016 at 15:53. Subjective patient seen sitting up in bed, appears comfortable s/p EGD and Colonoscopy no BM since after procedure, tolerated diet well no chest pain, dyspnea, dizziness, palpitations denies other symptoms Objective Last 8 Hrs Date Time Temp Pulse Resp B/P Pulse Ox O2 Delivery O2 Flow Rate FiO2 09/08/16 15:50 36.2 65 18 114/80 99 Room Air 09/08/16 13:24 Room Air 09/08/16 13:18 36.5 63 20 139/64 100 Room Air 09/08/16 12:40 61 16 154/67 98 Room Air 09/08/16 12:28 64 20 155/67 98 Room Air 09/08/16 12:10 63 20 135/64 99 Room Air 09/08/16 10:54 36.4 68 20 185/75 100 Room Air 09/08/16 08:16 36.3 65 19 171/66 100 Nasal Cannula 2.0 09/08/16 08:00 100 Nasal Cannula 2.0 Physical Exam: General- oriented x 3, not in distress, speaks in sentences with no effort Eyes- EOMI, anicteric Neck- supple, no JVD Lungs- clear breath sounds bilaterally Heart- normal rate, regular rhythm; no murmurs Abdomen- normal bowel sounds, soft, nontender Extremities- trace pretibial edema, mild erythema and warmth on the anterior cordon- left; no calf tenderness; peripheral pulses intact (+) healing wound on the plantar aspect of left foot Neuro- alert, oriented x 3; no gross focal deficits Skin- warm & dry Laboratory Results: Last 24 Hours Test 09/07/16 16:08 09/07/16 19:19 09/08/16 02:45 09/08/16 06:01 Bedside Glucose 233 mg/dl 167 mg/dl 135 mg/dl Hemoglobin 8.7 g/dL Hematocrit 25.9 % Prothrombin Time 14.6 SECONDS Prothromb Time International Ratio 1.3 Total Creatine Kinase 36 U/L Creatine Kinase MB 1.0 ng/ml Creatine Kinase MB Ratio 2.8 Troponin I < 0.015 ng/ml Test 09/08/16 06:43 09/08/16 09:10 09/08/16 13:17 Estimated Average Glucose 146 mg/dl Hemoglobin A1c 6.7 % White Blood Count 4.77 K/uL Red Blood Count 2.87 M/uL Hemoglobin 8.4 g/dL Hematocrit 25.0 % Mean Corpuscular Volume 87.1 fL Mean Corpuscular Hemoglobin 29.3 pg Mean Corpuscular Hemoglobin Concent 33.6 g/dl Platelet Count 95 K/uL Mean Platelet Volume 10.2 fL Neutrophils (%) (Auto) 60.2 % Lymphocytes (%) (Auto) 30.0 % Monocytes (%) (Auto) 7.3 % Eosinophils (%) (Auto) 0.8 % Basophils (%) (Auto) 0.2 % Neutrophils # (Auto) 2.87 K/uL Lymphocytes # (Auto) 1.43 K/uL Monocytes # (Auto) 0.35 K/uL Eosinophils # (Auto) 0.04 K/uL Basophils # (Auto) 0.01 K/uL RDW Standard Deviation 46.0 fL RDW Coefficient of Variation 14.5 % Immature Granulocyte % (Auto) 1.5 % Immature Granulocyte # (Auto) 0.07 K/uL Platelet Estimate DECREASED Red Blood Cell Morphology Unremarkable Sodium Level 144 mmol/L Potassium Level 3.6 mmol/L Chloride Level 108 mmol/L Carbon Dioxide Level 26 mmol/L Anion Gap 10.0 mmol/L Blood Urea Nitrogen 36 mg/dl Creatinine 1.40 mg/dl Est Creatinine Clear Calc Drug Dose 42.0 ml/min Estimated GFR () 41.6 Estimated GFR (Non- 35.9 BUN/Creatinine Ratio 25.9 Random Glucose 161 mg/dl Calcium Level 8.6 mg/dl Bedside Glucose 160 mg/dl Assessment & Plan This is a 76 year old female with PMH of CAD, paroxysmal A. Fib on anticoagulation, significant COPD requiring nocturnal O2, insulin-dependent DM2 , CKD stage 3, chronic diastolic CHF, HTN, HLD presents with dizziness and found to have significant anemia Acute Blood Loss Anemia, possible Diverticular Bleed? in the setting of Coumadin use -->Hgb dropped from > 11 to 8.1 s/p 2 units prbc given, Hg 8.4 --> repeat at 4pm pending --> Vit K given for INR 2.6--> 1.3 --> s/p EGD: no signs of bleeding and Colonoscopy: (+) blood in the entire colon , diverticulosis --> change Protonix drip to daily regular diet now HOLD coumadin until cleared by GI Acute Kidney Injury superimposed on CKD stage 3, likely Pre Renal Etiology -->patient follows with Dr. Alexander, nephrology -->creat was 1.6 on 09/02/16; admitted with 2.2 --> improved to 1.4 monitor, hold Lasix for now Urinary Tract Infection, ruled out -- urine culture: yeast not javon d/c Cipro Chronic Diastolic CHF -->patient takes Lasix at home due to chronic diastolic CHF/LE edema -->held diuretic due to KARLEE -- hold Lasix for today may need to resume tomorrow if crea stable Paroxysmal Atrial Fibrillation -->patient currently in NSR -- coumadin held Vit K given, INR reversed -- resume coumadin when ok with GI Insulin-Dependent DM2 -- Pharmacy consulted COPD - not in exacerbation continue usual inhalers HTN -->hold ARB and Lasix due to KARLEE -- continue Metoprolol, Dilzem, ISMN monitor CAD -->should keep Hgb > 8 due to CAD -->continue b-joe, statin, imdur -->hold aspirin, Coumadin due to GI bleed DVT ppx -->SCDs FULL CODE Disposition pending lives at home PT /OT evals patient agreeable with Rehab if recommended Current Inpatient Medications: Current Inpatient Medications Medications (Trade) Dose Ordered Sig/Rose Route Start Time Stop Time Status Last Admin Dose Admin Al Hydrox/Mg Hydrox/Simethicone (Maalox Max Susp) 15 ml Q4H PRN PO 09/07/16 05:00 10/07/16 04:59 Magnesium Hydroxide (Milk Of Magnesia Susp) 30 ml Q12H PRN PO 09/07/16 05:00 10/07/16 04:59 Ondansetron HCl (Zofran Inj) 4 mg Q6H PRN IV 09/07/16 05:00 10/07/16 04:59 Diltiazem HCl (Cardizem Cd Cap) 120 mg DAILY PO 09/07/16 09:00 10/07/16 08:59 09/08/16 08:33 120 MG Isosorbide Mononitrate (Imdur Ext Rel Tab) 30 mg DAILY PO 09/07/16 09:00 10/07/16 08:59 09/08/16 08:33 30 MG Levalbuterol (Xopenex 1.25MG/ 3ML Neb) 1.25 mg Q4 PRN INH 09/07/16 05:15 10/07/16 05:14 Lovastatin (Mevacor Tab) 80 mg HS PO 09/07/16 21:00 10/07/16 20:59 09/07/16 20:23 80 MG Miscellaneous Information (Order Awaiting Action) 1 ea QS N/A 09/07/16 08:00 10/07/16 07:59 Metoprolol Succinate 25 mg 25 mg QAM PO 09/07/16 09:00 10/07/16 08:59 09/08/16 08:33 25 MG Pantoprazole Sodium/Dextrose (Protonix Inj/D5 100ml) 100 ml @ 20 mls/hr Q5H IV 09/07/16 05:30 10/07/16 05:29 09/08/16 13:26 20 MLS/HR Insulin Glargine (Lantus Solostar Pen) 10 unit Q12 SC 09/07/16 09:00 10/07/16 08:59 09/08/16 08:37 10 UNIT Glucose (Glucose 40% Gel) 15-30 GRAMS 15 GRAMS... UD PRN PO 09/07/16 05:15 10/07/16 05:14 Glucose (Glucose Chew Tab) 4-8 Tablets 4 Tabl... UD PRN PO 09/07/16 05:15 10/07/16 05:14 Dextrose (Dextrose 50% 50ML Syringe) 25-50ML OF 50% DW IV FOR... UD PRN IV 09/07/16 05:15 10/07/16 05:14 Glucagon (Glucagon Inj) 1 mg UD PRN SQ 09/07/16 05:15 10/07/16 05:14 Miscellaneous Information (Consult Glycemic Management Pharmacy) 1 ea UD PRN N/A 09/07/16 05:23 10/07/16 05:22 Beclomethasone Dipropionate (Qvar 80 Mcg Hfa Inhaler) 1 puffs BID INH 09/07/16 21:00 10/07/16 20:59 09/08/16 08:33 1 PUFFS Miscellaneous Information (Order Awaiting Action) 1 ea QS N/A 09/07/16 16:00 10/07/16 15:59 Insulin Aspart (novoLOG ASPART) SLIDING SCALE If C... Q6 SC 09/07/16 12:00 10/07/16 11:59 09/08/16 12:00 5 UNITS
[2016-09-08] MEDS ORDERED: CLONIDINE HCL 0.1 MG TAB PO PRN (16:15)
[2016-09-08 16:35] LABS: HEMATOCRIT 25.6 % (37-47)
[2016-09-08 16:45] LABS: INR 1.1 (0.9-1.1); PROTHROMBIN TIME (PATIENT) 11.5 SECONDS (9.0-12.0)
[2016-09-08] MEDS: LOVASTATIN 20 MG TAB PO SCH (21:09)
[2016-09-09] VITALS (8 sets, daily range): BP systolic 143–165; BP diastolic 67–75; PULSE 60–79; TEMP 36.6–37.1; O2SAT 94–100
[2016-09-09] MEDS: INSULIN ASPART 100 UNITS/ML 3 ML PEN SC SCH ×5 (00:19→21:54)
[2016-09-09 07:39] LABS: HEMATOCRIT 24.2 % (37-47); MEAN CORPUSCULAR HEMOGLOBIN 29.8 pg (25-34); MEAN CORPUSCULAR HGB CONC 33.5 g/dl (32-36); RED BLOOD COUNT 2.72 M/uL (4.2-5.4); WHITE BLOOD COUNT 3.79 K/uL (4.8-10.8)
[2016-09-09 08:03] LABS: COMPLETE YES; EOS % 1.3 %; IG% 1.6 %; LYMPH % 31.9 %; LYMPH ABS # 1.21 K/uL (1.2-3.4); MEAN PLATELET VOLUME 10.2 fL (7.4-10.4); MONO % 7.9 %; NEUT % 57.3 %; PLATELET COUNT 95 K/uL (130-400)
[2016-09-09] MEDS: INSULIN GLARGINE SOLOSTAR 100 UNITS/ML 3 ML PEN SC SCH ×2 (08:06→21:53)
[2016-09-09] MEDS: DILTIAZEM HCL 120 MG CAPCR PO SCH (08:06)
[2016-09-09] MEDS: ISOSORBIDE MONONITRATE 30 MG TABCR PO SCH (08:07)
[2016-09-09] MEDS: BECLOMETHASONE DIP HFA 80 MCG 8.7G INH INH SCH ×2 (08:07→20:47)
[2016-09-09] MEDS: METOPROLOL SUCC 25MG EXT REL TAB PO SCH (08:07)
[2016-09-09 08:21] LABS: BUN/CREATININE RATIO 16.1 (10-20); CALCIUM 8.4 mg/dl (8.5-10.1); CREATININE 1.5 mg/dl (0.60-1.20); POTASSIUM 3.7 mmol/L (3.5-5.1)
[2016-09-09] MEDS: PANTOprazole INJ 40 MG in SYRINGE 0 ML IV SCH (10:45)
--- NOTE | 2016-09-09 16:48 | Pharmacy Progress Note ---
Glycemic: Assessment & Plan Date of Service Sep 09, 2016. Assessment & Plan The patient received 32 units of insulin on 09/07, 43 units on 09/08. BSGs ranging 180 - 255 mg/dl over the past 24hrs. Pt was npo yesterday for colonoscopy, now advanced to type 2 diabetic diet. Protonix drip mixed in D5W was dc'd. Will increase basal a bit and reassess in am. * Basal insulin: Lantus 12 units every 12 hours * Correctional Insulin: Novolog Correction per scale ACHS Goal Range: Low 120 mg/dL - High 140 mg/dL Correction Factor: 20 mg/dL/unit * Prandial insulin: Per carb ratio of 1 unit per 8 grams CHO consumed BSGs continue to improve, no other changes needed to inpatient regimen at this time. Pharmacy will continue to monitor patient daily and write orders per [facility] inpatient glycemic control protocol. Thanks. * Please note that the plan above was derived based on current level of insulin resistance and hospital stress. These recommendations are appropriate for inpatient admission only. Plan of care upon discharge will need to be reassessed to avoid potential outpatient hypo/hyperglycemia.
--- NOTE | 2016-09-09 19:17 | Progress Note ---
Medicine Progress Note Date & Time of Visit: Sep 09, 2016 at 19:17. Subjective Patient reports working with therapy today and feeling LAUREANO when ambulating. Otherwise denies any new complaints. Tolerating PO. Has not had any BM since admission. No overnight events noted. No additional bleeding noted. Objective Last 8 Hrs Date Time Temp Pulse Resp B/P Pulse Ox O2 Delivery O2 Flow Rate FiO2 09/09/16 18:20 36.7 79 20 165/69 94 Room Air 09/09/16 17:31 36.8 60 18 100 2.0 09/09/16 16:00 Room Air 09/09/16 15:40 36.8 60 18 157/68 100 Room Air 09/09/16 12:00 Room Air 09/09/16 11:23 36.6 71 20 143/69 96 Room Air Physical Exam: GENERAL: Patient is in no acute distress. HEENT: No acute trauma, normocephalic, mucous membranes moist, no nasal congestion, no scleral icterus. NECK: No stridor, trachea is midline. LUNGS: Clear to auscultation bilaterally, no wheeze, no rhonchi, breath sounds equal. HEART: Without murmurs gallops or rubs, regular rate and rhythm. ABDOMEN: Soft, nontender, bowel sounds positive EXTREMITIES: No cyanosis; trace LE edema NEUROLOGIC: Oriented x 3, no acute motor or sensory deficits, no focal weakness. SKIN: No rash, no jaundice, no diaphoresis. Laboratory Results: Last 24 Hours Test 09/08/16 20:12 09/09/16 00:14 09/09/16 06:25 09/09/16 07:15 Bedside Glucose 242 mg/dl 255 mg/dl 215 mg/dl White Blood Count 3.79 K/uL Red Blood Count 2.72 M/uL Hemoglobin 8.1 g/dL Hematocrit 24.2 % Mean Corpuscular Volume 89.0 fL Mean Corpuscular Hemoglobin 29.8 pg Mean Corpuscular Hemoglobin Concent 33.5 g/dl Platelet Count 95 K/uL Mean Platelet Volume 10.2 fL Neutrophils (%) (Auto) 57.3 % Lymphocytes (%) (Auto) 31.9 % Monocytes (%) (Auto) 7.9 % Eosinophils (%) (Auto) 1.3 % Basophils (%) (Auto) 0.0 % Neutrophils # (Auto) 2.17 K/uL Lymphocytes # (Auto) 1.21 K/uL Monocytes # (Auto) 0.30 K/uL Eosinophils # (Auto) 0.05 K/uL Basophils # (Auto) 0.00 K/uL RDW Standard Deviation 48.4 fL RDW Coefficient of Variation 14.8 % Immature Granulocyte % (Auto) 1.6 % Immature Granulocyte # (Auto) 0.06 K/uL Red Blood Cell Morphology Unremarkable Sodium Level 144 mmol/L Potassium Level 3.7 mmol/L Chloride Level 109 mmol/L Carbon Dioxide Level 25 mmol/L Anion Gap 10.0 mmol/L Blood Urea Nitrogen 24 mg/dl Creatinine 1.50 mg/dl Est Creatinine Clear Calc Drug Dose 39.2 ml/min Estimated GFR () 38.3 Estimated GFR (Non- 33.0 BUN/Creatinine Ratio 16.1 Random Glucose 197 mg/dl Calcium Level 8.4 mg/dl Test 09/09/16 11:09 09/09/16 16:21 Bedside Glucose 287 mg/dl 180 mg/dl Assessment & Plan GI BLEED: with Acute Blood Loss Anemia -most likely from diverticular bleed in the setting of Coumadin use -Hgb: 11 --> 8.1 -s/p 2 units PRBCs transfusion, Hg 8.4; has remained stable in 8 range since then -INR was reversed with Vit K as well -s/p EGD: no signs of bleeding -Colonoscopy: (+) blood in the entire colon, diverticulosis -on Protonix drip initially, now on daily -tolerating regular diet now -HOLD coumadin until ok to resume by GI KARLEE on CKD STAGE III: -likely prerenal from hypovolemia and blood loss -creat was 1.6 on 09/02/16; admitted with 2.2 --> improved to 1.4 -monitor, hold Lasix for now -hold nephrotoxins UTI: ruled out -urine culture: yeast not ajvon -stopped Cipro CHRONIC DIASTOLIC CHF: -patient takes Lasix at home due to chronic diastolic CHF/LE edema, lasix held for now -held diuretic due to KARLEE -monitor fluid status PAF: -remains in NSR -coumadin held due to GI bleed -resume coumadin when ok with GI -rate controlled DM TYPE II: -Glycemic pharmacy consulted for insulin COPD: -not in exacerbation -continue home inhalers HTN: -hold ARB and Lasix due to KARLEE -continue Metoprolol, Diltiazem, ISMN -monitor CAD: -should keep Hgb > 8 due to CAD, may require blood transfusion -continue b-joe, statin, imdur -hold aspirin, Coumadin due to GI bleed Current Inpatient Medications: Current Inpatient Medications Medications (Trade) Dose Ordered Sig/Rose Route Start Time Stop Time Status Last Admin Dose Admin Al Hydrox/Mg Hydrox/Simethicone (Maalox Max Susp) 15 ml Q4H PRN PO 09/07/16 05:00 10/07/16 04:59 Magnesium Hydroxide (Milk Of Magnesia Susp) 30 ml Q12H PRN PO 09/07/16 05:00 10/07/16 04:59 Ondansetron HCl (Zofran Inj) 4 mg Q6H PRN IV 09/07/16 05:00 10/07/16 04:59 Diltiazem HCl (Cardizem Cd Cap) 120 mg DAILY PO 09/07/16 09:00 10/07/16 08:59 09/09/16 08:06 120 MG Isosorbide Mononitrate (Imdur Ext Rel Tab) 30 mg DAILY PO 09/07/16 09:00 10/07/16 08:59 09/09/16 08:07 30 MG Levalbuterol (Xopenex 1.25MG/ 3ML Neb) 1.25 mg Q4 PRN INH 09/07/16 05:15 10/07/16 05:14 Lovastatin (Mevacor Tab) 80 mg HS PO 09/07/16 21:00 10/07/16 20:59 09/08/16 21:09 80 MG Miscellaneous Information (Order Awaiting Action) 1 ea QS N/A 09/07/16 08:00 10/07/16 07:59 Metoprolol Succinate (Toprol Xl Tab) 25 mg QAM PO 09/07/16 09:00 10/07/16 08:59 09/09/16 08:07 25 MG Glucose (Glucose 40% Gel) 15-30 GRAMS 15 GRAMS... UD PRN PO 09/07/16 05:15 10/07/16 05:14 Glucose (Glucose Chew Tab) 4-8 Tablets 4 Tabl... UD PRN PO 09/07/16 05:15 2/7/17 05:14 Dextrose (Dextrose 50% 50ML Syringe) 25-50ML OF 50% DW IV FOR... UD PRN IV 09/07/16 05:15 10/07/16 05:14 Glucagon (Glucagon Inj) 1 mg UD PRN SQ 09/07/16 05:15 10/07/16 05:14 Miscellaneous Information (Consult Glycemic Management Pharmacy) 1 ea UD PRN N/A 09/07/16 05:23 10/07/16 05:22 Beclomethasone Dipropionate (Qvar 80 Mcg Hfa Inhaler) 1 puffs BID INH 09/07/16 21:00 10/07/16 20:59 09/09/16 08:07 1 PUFFS Miscellaneous Information 1 ea 1 ea QS N/A 09/07/16 16:00 10/07/16 15:59 Pantoprazole Sodium/Syringe (Protonix Inj/ Syringe) 10 ml @ 5 mls/min DAILY@11 IV 09/09/16 11:00 10/09/16 10:59 09/09/16 10:45 5 MLS/MIN Clonidine HCl (Catapres Tab) 0.1 mg Q6H PRN PO 09/08/16 16:15 10/08/16 16:14 Insulin Aspart (novoLOG ASPART) SLIDING SCALE If C... ACHS SC 09/09/16 11:00 10/09/16 10:59 09/09/16 17:17 10 UNITS Insulin Glargine (Lantus Solostar Pen) 12 unit Q12 SC 09/09/16 21:00 10/09/16 20:59
[2016-09-09] MEDS: LOVASTATIN 20 MG TAB PO SCH (21:51)
[2016-09-10] VITALS (8 sets, daily range): BP systolic 117–155; BP diastolic 55–73; PULSE 61–73; TEMP 36.3–36.7; O2SAT 98–100
[2016-09-10] MEDS ORDERED: NURSING VERBAL MED ORDER ONE (02:15)
[2016-09-10 06:43] LABS: HEMATOCRIT 24.6 % (37-47); MEAN CELL VOLUME 90.1 fL (80-100); MEAN CORPUSCULAR HEMOGLOBIN 29.7 pg (25-34); MEAN CORPUSCULAR HGB CONC 32.9 g/dl (32-36); RED BLOOD COUNT 2.73 M/uL (4.2-5.4); WHITE BLOOD COUNT 3.43 K/uL (4.8-10.8)
[2016-09-10 06:53] LABS: MEAN PLATELET VOLUME 10.7 fL (7.4-10.4); PLATELET COUNT 87 K/uL (130-400)
[2016-09-10 07:07] LABS: BUN/CREATININE RATIO 16.1 (10-20); CALCIUM 8.5 mg/dl (8.5-10.1); CREATININE 1.4 mg/dl (0.60-1.20); POTASSIUM 3.9 mmol/L (3.5-5.1)
[2016-09-10 07:12] LABS: BASO % 0.3 %; BASO ABS # 0.01 K/uL (0-0.2); COMPLETE YES; HYPERSEGMENTED POLYS OCCASIONAL; LYMPH % 33.2 %; LYMPH ABS # 1.14 K/uL (1.2-3.4); MONO % 8.5 %
[2016-09-10] MEDS: METOPROLOL SUCC 25MG EXT REL TAB PO SCH (07:39)
[2016-09-10] MEDS: ISOSORBIDE MONONITRATE 30 MG TABCR PO SCH (07:39)
[2016-09-10] MEDS: BECLOMETHASONE DIP HFA 80 MCG 8.7G INH INH SCH ×2 (07:39→20:06)
[2016-09-10] MEDS: DILTIAZEM HCL 120 MG CAPCR PO SCH (07:40)
--- NOTE | 2016-09-10 08:35 | Progress Note ---
Progress Note GI to sign off. Recent EGD/Colon without any source of bleeding identified. GI suggest holding Coumadin for about 2 weeks. Please call with any questions.
[2016-09-10] MEDS: INSULIN ASPART 100 UNITS/ML 3 ML PEN SC SCH ×5 (09:14→23:32)
[2016-09-10] MEDS: INSULIN GLARGINE SOLOSTAR 100 UNITS/ML 3 ML PEN SC SCH ×2 (09:14→17:09)
[2016-09-10] MEDS: PANTOprazole INJ 40 MG in SYRINGE 0 ML IV SCH (11:53)
--- NOTE | 2016-09-10 15:22 | Pharmacy Progress Note ---
Glycemic Control: Progress Nt Date of Service Sep 10, 2016. Scope Glycemic Pharmacist consulted by Dr Le on 09/07/16 for glycemic control and to write orders per [facility] inpatient glycemic control protocol. Objective Accuchecks BSG (last 24hrs): Test 09/09/16 16:21 09/09/16 19:43 09/09/16 21:47 09/10/16 05:54 Bedside Glucose 180 mg/dl (70-90) 162 mg/dl (70-90) 169 mg/dl (70-90) Random Glucose 198 mg/dl (70-99) Test 09/10/16 08:00 09/10/16 11:39 Bedside Glucose 201 mg/dl (70-90) 245 mg/dl (70-90) Laboratory Data (last 24hrs) Test 09/10/16 05:54 Anion Gap 9.0 mmol/L BUN/Creatinine Ratio 16.1 Blood Urea Nitrogen 23 mg/dl Creatinine 1.40 mg/dl Potassium Level 3.9 mmol/L Sodium Level 144 mmol/L White Blood Count 3.43 K/uL Red Blood Count 2.73 M/uL Hemoglobin 8.1 g/dL Hematocrit 24.6 % Mean Corpuscular Volume 90.1 fL Mean Corpuscular Hemoglobin 29.7 pg Mean Corpuscular Hemoglobin Concent 32.9 g/dl Platelet Count 87 K/uL Mean Platelet Volume 10.7 fL Neutrophils (%) (Auto) 54.0 % Lymphocytes (%) (Auto) 33.2 % Monocytes (%) (Auto) 8.5 % Eosinophils (%) (Auto) 2.0 % Basophils (%) (Auto) 0.3 % Neutrophils # (Auto) 1.85 K/uL Lymphocytes # (Auto) 1.14 K/uL Monocytes # (Auto) 0.29 K/uL Eosinophils # (Auto) 0.07 K/uL Basophils # (Auto) 0.01 K/uL HbA1c: Test 09/08/16 06:43 Hemoglobin A1c 6.7 % (4.5-5.6) H Recent Pertinent Medications \Outpatient Anti-diabetic Regimen: * Lantus 25 units SQ AM + 11 units SQ PM * NovoLog 2-8 units SQ ACHS PRN The patient is currently receiving: * Basal insulin: Lantus 12 units every 12 hours * Correctional Insulin: Novolog Correction per scale ACHS Goal Range: Low 110 mg/dL - High 140 mg/dL Correction Factor: 20 mg/dL/unit * Prandial insulin: Per carb ratio of 1 unit per 8 grams CHO consumed Risk Factors for Insulin Resistance: * Stress * Diet Assessment & Plan ASSESSMENT: * 76yo T2DM female known to pharmacy from previous admissions/glycemic consults * Pt with adequate outpatient control per recent A1c in March 2016. Repeat A1c = 6.7% 09/08/16 but value may not be totally reliable based on acute blood loss and possible transfusion * On admission, Pt with minimal risk factors for insulin resistance and was NPO. Pt with increased insulin sensitivity d/t KARLEE. Very conservative SQ basal bolus insulin regimen was initiated. * Diet advanced, KARLEE resolving. Pt with sustained hyperglycemia over the past 24hrs d/t insufficient insulin dosing. Will tighten regimen (both basal + prandial) and continue to adjust based on BSG trends. * ADA & AACE recommend a goal blood sugar range 140-180 mg/dl for the majority of critically ill & non-critically ill patients. However, more stringent targets may be selected in individual cases. Will utilize more stringent target of 120-140mg/dl based for a tightly controlled diabetic at baseline. PLAN FOR INPATIENT GLYCEMIC CONTROL: Change regimen based on an estimated total daily dose of 60+ units/day. * INCREASE Basal insulin with LANTUS 15 units SQ BID * TIGHTEN Correctional Insulin with NOVOLOG per scale ACHS or Q6hrs while NPO. Additional checks + coverage @ 00,04 * Goal Range: Low 120 mg/dL - High 140 mg/dL * Correction Factor: 20 mg/dL/unit * Nutritional / Prandial insulin per carb ratio of 1 unit per 7 grams CHO consumed * Please note that the plan above was derived based on current level of insulin resistance and hospital stress. These recommendations are appropriate for inpatient admission only. Plan of care upon discharge will need to be reassessed to avoid potential outpatient hypo/hyperglycemia. Thank you.
--- NOTE | 2016-09-10 18:31 | Progress Note ---
Medicine Progress Note Date & Time of Visit: Sep 10, 2016 at 18:16. Subjective Patient reports feeling weak today, still has some LAUREANO. No overnight events noted. Activity limited by weakness and SOB. Denies any CP or dizziness. Tolerating PO without difficulty. Still no BM but passing flatus. No other complaints at this time. Objective Last 8 Hrs Date Time Temp Pulse Resp B/P Pulse Ox O2 Delivery O2 Flow Rate FiO2 09/10/16 16:21 Room Air 98 09/10/16 16:19 36.4 61 20 132/70 100 09/10/16 16:15 36.4 64 18 146/66 100 Physical Exam: GENERAL: Patient is in no acute distress. HEENT: No acute trauma, normocephalic, mucous membranes moist, no nasal congestion, no scleral icterus. NECK: No stridor, trachea is midline. LUNGS: Clear to auscultation bilaterally, no wheeze, no rhonchi, breath sounds equal. HEART: Without murmurs gallops or rubs, regular rate and rhythm. ABDOMEN: Soft, nontender, bowel sounds positive EXTREMITIES: No cyanosis; trace LE edema NEUROLOGIC: Oriented x 3, no acute motor or sensory deficits, no focal weakness. SKIN: No rash, no jaundice, no diaphoresis. Laboratory Results: Last 24 Hours Test 09/09/16 19:43 09/09/16 21:47 09/10/16 05:54 09/10/16 08:00 Bedside Glucose 162 mg/dl 169 mg/dl 201 mg/dl White Blood Count 3.43 K/uL Red Blood Count 2.73 M/uL Hemoglobin 8.1 g/dL Hematocrit 24.6 % Mean Corpuscular Volume 90.1 fL Mean Corpuscular Hemoglobin 29.7 pg Mean Corpuscular Hemoglobin Concent 32.9 g/dl Platelet Count 87 K/uL Mean Platelet Volume 10.7 fL Neutrophils (%) (Auto) 54.0 % Lymphocytes (%) (Auto) 33.2 % Monocytes (%) (Auto) 8.5 % Eosinophils (%) (Auto) 2.0 % Basophils (%) (Auto) 0.3 % Neutrophils # (Auto) 1.85 K/uL Lymphocytes # (Auto) 1.14 K/uL Monocytes # (Auto) 0.29 K/uL Eosinophils # (Auto) 0.07 K/uL Basophils # (Auto) 0.01 K/uL RDW Standard Deviation 48.1 fL RDW Coefficient of Variation 14.7 % Immature Granulocyte % (Auto) 2.0 % Immature Granulocyte # (Auto) 0.07 K/uL Nucleated RBC Absolute Count (auto) 0.03 K/uL Nucleated Red Blood Cells % 0.9 % Hypersegmented Polys OCCASIONAL Red Blood Cell Morphology Unremarkable Sodium Level 144 mmol/L Potassium Level 3.9 mmol/L Chloride Level 110 mmol/L Carbon Dioxide Level 25 mmol/L Anion Gap 9.0 mmol/L Blood Urea Nitrogen 23 mg/dl Creatinine 1.40 mg/dl Est Creatinine Clear Calc Drug Dose 42.0 ml/min Estimated GFR () 41.6 Estimated GFR (Non- 35.9 BUN/Creatinine Ratio 16.1 Random Glucose 198 mg/dl Calcium Level 8.5 mg/dl Test 09/10/16 11:39 09/10/16 16:57 Bedside Glucose 245 mg/dl 142 mg/dl Assessment & Plan GI BLEED: with Acute Blood Loss Anemia -most likely from diverticular bleed in the setting of Coumadin use -Hgb: 11 --> 8.1 -s/p 2 units PRBCs transfusion, Hg 8.4-->8.1 since yesterday -INR was reversed with Vit K as well -s/p EGD: no signs of bleeding -Colonoscopy: (+) blood in the entire colon, diverticulosis -on Protonix drip initially, now on daily -tolerating regular diet now -HOLD coumadin until ok to resume by GI (approximately 2 weeks) -will transfuse 1 unit PRBCs today due to Hb being 8.1 and patient having symptoms and known CAD KARLEE on CKD STAGE III: -likely prerenal from hypovolemia and blood loss -creat was 1.6 on 09/02/16; admitted with 2.2 --> improved to 1.4 -monitor, hold Lasix for now -hold nephrotoxins UTI: ruled out -urine culture: yeast not javon, now showing javon glabrata -stopped Cipro -will likely need caspofungin due to type of organism in urine CHRONIC DIASTOLIC CHF: -patient takes Lasix at home due to chronic diastolic CHF/LE edema, lasix held for now -held diuretic due to KARLEE -monitor fluid status PAF: -remains in NSR -coumadin held due to GI bleed -rate controlled DM TYPE II: -Glycemic pharmacy consulted for insulin COPD: -not in exacerbation -continue home inhalers HTN: -hold ARB and Lasix due to KARLEE -continue Metoprolol, Diltiazem, ISMN -monitor CAD: -should ideally keep Hgb close to 10 due to CAD -continue b-joe, statin, imdur -hold aspirin, Coumadin due to GI bleed Current Inpatient Medications: Current Inpatient Medications Medications (Trade) Dose Ordered Sig/Rose Route Start Time Stop Time Status Last Admin Dose Admin Al Hydrox/Mg Hydrox/Simethicone (Maalox Max Susp) 15 ml Q4H PRN PO 09/07/16 05:00 10/07/16 04:59 Magnesium Hydroxide (Milk Of Magnesia Susp) 30 ml Q12H PRN PO 09/07/16 05:00 10/07/16 04:59 Ondansetron HCl (Zofran Inj) 4 mg Q6H PRN IV 09/07/16 05:00 10/07/16 04:59 Diltiazem HCl (Cardizem Cd Cap) 120 mg DAILY PO 09/07/16 09:00 10/07/16 08:59 09/10/16 07:40 120 MG Isosorbide Mononitrate (Imdur Ext Rel Tab) 30 mg DAILY PO 09/07/16 09:00 10/07/16 08:59 09/10/16 07:39 30 MG Levalbuterol (Xopenex 1.25MG/ 3ML Neb) 1.25 mg Q4 PRN INH 09/07/16 05:15 10/07/16 05:14 Lovastatin (Mevacor Tab) 80 mg HS PO 09/07/16 21:00 10/07/16 20:59 09/09/16 21:51 80 MG Miscellaneous Information (Order Awaiting Action) 1 ea QS N/A 09/07/16 08:00 10/07/16 07:59 Metoprolol Succinate (Toprol Xl Tab) 25 mg QAM PO 09/07/16 09:00 10/07/16 08:59 09/10/16 07:39 25 MG Glucose (Glucose 40% Gel) 15-30 GRAMS 15 GRAMS... UD PRN PO 09/07/16 05:15 10/07/16 05:14 Glucose (Glucose Chew Tab) 4-8 Tablets 4 Tabl... UD PRN PO 09/07/16 05:15 10/07/16 05:14 Dextrose (Dextrose 50% 50ML Syringe) 25-50ML OF 50% DW IV FOR... UD PRN IV 09/07/16 05:15 10/07/16 05:14 Glucagon (Glucagon Inj) 1 mg UD PRN SQ 09/07/16 05:15 10/07/16 05:14 Miscellaneous Information (Consult Glycemic Management Pharmacy) 1 ea UD PRN N/A 09/07/16 05:23 10/07/16 05:22 Beclomethasone Dipropionate (Qvar 80 Mcg Hfa Inhaler) 1 puffs BID INH 09/07/16 21:00 10/07/16 20:59 09/10/16 07:39 1 PUFFS Miscellaneous Information 1 ea 1 ea QS N/A 09/07/16 16:00 10/07/16 15:59 Pantoprazole Sodium/Syringe (Protonix Inj/ Syringe) 10 ml @ 5 mls/min DAILY@11 IV 09/09/16 11:00 10/09/16 10:59 09/10/16 11:53 5 MLS/MIN Clonidine HCl (Catapres Tab) 0.1 mg Q6H PRN PO 09/08/16 16:15 10/08/16 16:14 Insulin Aspart (novoLOG ASPART) SLIDING SCALE If C... ACHS SC 09/09/16 11:00 10/09/16 10:59 09/10/16 17:08 1 UNITS Heparin Sodium (Porcine) (Heparin 10 Unit/ ml 5 ml Flush) 5 ml PRN PRN FLUSH 09/10/16 02:15 10/10/16 02:14 09/10/16 11:53 5 ML Insulin Glargine (Lantus Solostar Pen) 15 unit Q12 SC 09/10/16 16:45 10/10/16 16:44 09/10/16 17:09 15 UNIT Insulin Aspart (novoLOG ASPART) SLIDING SCALE If C... TODAY@0000,0400 SC 09/11/16 00:00 09/11/16 04:01
[2016-09-10] MEDS: LOVASTATIN 20 MG TAB PO SCH (20:54)
[2016-09-11 00:14] VITALS: BP 177/77; PULSE 68; TEMP 36.4; O2SAT 99
[2016-09-11] MEDS ORDERED: CLONIDINE HCL 0.1 MG TAB PO PRN (00:45)
[2016-09-11] MEDS: INSULIN ASPART 100 UNITS/ML 3 ML PEN SC SCH ×6 (03:51→21:18)
[2016-09-11 05:49] LABS: HEMATOCRIT 26.4 % (37-47); MEAN CELL VOLUME 89.5 fL (80-100); MEAN CORPUSCULAR HEMOGLOBIN 30.2 pg (25-34); MEAN CORPUSCULAR HGB CONC 33.7 g/dl (32-36); MEAN PLATELET VOLUME 10.4 fL (7.4-10.4); PLATELET COUNT 88 K/uL (130-400); RED BLOOD COUNT 2.95 M/uL (4.2-5.4); WHITE BLOOD COUNT 4.17 K/uL (4.8-10.8)
[2016-09-11 06:18] LABS: BUN/CREATININE RATIO 16.7 (10-20); CALCIUM 8.5 mg/dl (8.5-10.1); CREATININE 1.3 mg/dl (0.60-1.20); POTASSIUM 4.1 mmol/L (3.5-5.1)
[2016-09-11 06:21] LABS: COMPLETE YES; EOS % 2.2 %; IG% 1.9 %; LYMPH % 32.6 %; LYMPH ABS # 1.36 K/uL (1.2-3.4); MONO % 10.3 %
[2016-09-11 08:00] VITALS: O2SAT 99
[2016-09-11 08:20] VITALS: BP 160/65; PULSE 64; TEMP 36.6; O2SAT 100
[2016-09-11] MEDS: BECLOMETHASONE DIP HFA 80 MCG 8.7G INH INH SCH ×2 (09:18→21:12)
[2016-09-11] MEDS: DILTIAZEM HCL 120 MG CAPCR PO SCH (09:18)
[2016-09-11] MEDS: ISOSORBIDE MONONITRATE 30 MG TABCR PO SCH (09:18)
[2016-09-11] MEDS: METOPROLOL SUCC 25MG EXT REL TAB PO SCH (09:19)
[2016-09-11] MEDS: INSULIN GLARGINE SOLOSTAR 100 UNITS/ML 3 ML PEN SC SCH ×2 (09:25→21:17)
[2016-09-11] MEDS: PANTOprazole INJ 40 MG in SYRINGE 0 ML IV SCH (12:17)
[2016-09-11 15:14] VITALS: BP 132/61; PULSE 62; TEMP 36.4; O2SAT 99
[2016-09-11] MEDS ORDERED: NURSING VERBAL MED ORDER ONE (15:45)
[2016-09-11 16:00] VITALS: O2SAT 99
--- NOTE | 2016-09-11 19:39 | Progress Note ---
Medicine Progress Note Date & Time of Visit: Sep 11, 2016 at 19:39. Subjective Patient states she is still SOB with exertion, denies any other complaints. Is contemplating going home on DC vs going to rehab. No BM still. No SOB at rest. No overnight events noted. No other complaints at this time. Objective Last 8 Hrs Date Time Temp Pulse Resp B/P Pulse Ox O2 Delivery O2 Flow Rate FiO2 09/11/16 16:00 99 Room Air 98 09/11/16 15:14 36.4 62 20 132/61 99 Room Air Physical Exam: GENERAL: Patient is in no acute distress. HEENT: No acute trauma, normocephalic, mucous membranes moist, no nasal congestion, no scleral icterus. NECK: No stridor, trachea is midline. LUNGS: Clear to auscultation bilaterally, no wheeze, no rhonchi, breath sounds equal. HEART: Without murmurs gallops or rubs, regular rate and rhythm. ABDOMEN: Soft, nontender, bowel sounds positive EXTREMITIES: No cyanosis; trace LE edema NEUROLOGIC: Oriented x 3, no acute motor or sensory deficits, no focal weakness. SKIN: No rash, no jaundice, no diaphoresis. Laboratory Results: Last 24 Hours Test 09/10/16 23:22 09/11/16 03:47 09/11/16 05:11 09/11/16 07:54 Bedside Glucose 168 mg/dl 154 mg/dl 166 mg/dl White Blood Count 4.17 K/uL Red Blood Count 2.95 M/uL Hemoglobin 8.9 g/dL Hematocrit 26.4 % Mean Corpuscular Volume 89.5 fL Mean Corpuscular Hemoglobin 30.2 pg Mean Corpuscular Hemoglobin Concent 33.7 g/dl Platelet Count 88 K/uL Mean Platelet Volume 10.4 fL Neutrophils (%) (Auto) 53.0 % Lymphocytes (%) (Auto) 32.6 % Monocytes (%) (Auto) 10.3 % Eosinophils (%) (Auto) 2.2 % Basophils (%) (Auto) 0.0 % Neutrophils # (Auto) 2.21 K/uL Lymphocytes # (Auto) 1.36 K/uL Monocytes # (Auto) 0.43 K/uL Eosinophils # (Auto) 0.09 K/uL Basophils # (Auto) 0.00 K/uL RDW Standard Deviation 47.4 fL RDW Coefficient of Variation 14.5 % Immature Granulocyte % (Auto) 1.9 % Immature Granulocyte # (Auto) 0.08 K/uL Nucleated RBC Absolute Count (auto) 0.04 K/uL Nucleated Red Blood Cells % 0.8 % Red Blood Cell Morphology Unremarkable Sodium Level 145 mmol/L Potassium Level 4.1 mmol/L Chloride Level 111 mmol/L Carbon Dioxide Level 25 mmol/L Anion Gap 9.0 mmol/L Blood Urea Nitrogen 22 mg/dl Creatinine 1.30 mg/dl Est Creatinine Clear Calc Drug Dose 45.2 ml/min Estimated GFR () 45.5 Estimated GFR (Non- 39.3 BUN/Creatinine Ratio 16.7 Random Glucose 167 mg/dl Calcium Level 8.5 mg/dl Test 09/11/16 11:29 09/11/16 16:52 Bedside Glucose 245 mg/dl 112 mg/dl Assessment & Plan GI BLEED: with Acute Blood Loss Anemia -most likely from diverticular bleed in the setting of Coumadin use -Hgb: 11 --> 8.1 at lowest -s/p 3 units PRBCs transfusion this admission, Hb 8.9 -INR was reversed with Vit K as well -s/p EGD: no signs of bleeding -Colonoscopy: (+) blood in the entire colon, diverticulosis -on Protonix drip initially, now on daily -tolerating regular diet now -HOLD coumadin until ok to resume by GI (approximately 2 weeks) -will start iron supplement KARLEE on CKD STAGE III: -likely prerenal from hypovolemia and blood loss -creat was 1.6 on 09/02/16; admitted with 2.2 --> improved to 1.4 -monitor, hold Lasix for now -hold nephrotoxins UTI: ruled out -urine culture: yeast not javon, now showing javon glabrata, asymptomatic, will need a repeat urine culture as outpatient -stopped Cipro -discussed with ID, if symptomatic may require treatment CHRONIC DIASTOLIC CHF: -patient takes Lasix at home due to chronic diastolic CHF/LE edema, lasix held for now -held diuretic due to KARLEE -monitor fluid status -does not appear to be in CHF PAF: -remains in NSR -coumadin held due to GI bleed -rate controlled DM TYPE II: -Glycemic pharmacy consulted for insulin COPD: -not in exacerbation -continue home inhalers HTN: -hold ARB and Lasix due to KARLEE -continue Metoprolol, Diltiazem, ISMN -monitor CAD: -should ideally keep Hgb close to 10 due to CAD -continue b-joe, statin, imdur -hold aspirin, Coumadin due to GI bleed Current Inpatient Medications: Current Inpatient Medications Medications (Trade) Dose Ordered Sig/Rose Route Start Time Stop Time Status Last Admin Dose Admin Al Hydrox/Mg Hydrox/Simethicone (Maalox Max Susp) 15 ml Q4H PRN PO 09/07/16 05:00 10/07/16 04:59 Magnesium Hydroxide (Milk Of Magnesia Susp) 30 ml Q12H PRN PO 09/07/16 05:00 10/07/16 04:59 09/11/16 13:55 30 ML Ondansetron HCl (Zofran Inj) 4 mg Q6H PRN IV 09/07/16 05:00 10/07/16 04:59 Diltiazem HCl (Cardizem Cd Cap) 120 mg DAILY PO 09/07/16 09:00 10/07/16 08:59 09/11/16 09:18 120 MG Isosorbide Mononitrate (Imdur Ext Rel Tab) 30 mg DAILY PO 09/07/16 09:00 10/07/16 08:59 09/11/16 09:18 30 MG Levalbuterol (Xopenex 1.25MG/ 3ML Neb) 1.25 mg Q4 PRN INH 09/07/16 05:15 10/07/16 05:14 Lovastatin (Mevacor Tab) 80 mg HS PO 09/07/16 21:00 10/07/16 20:59 09/10/16 20:54 80 MG Miscellaneous Information (Order Awaiting Action) 1 ea QS N/A 09/07/16 08:00 10/07/16 07:59 Metoprolol Succinate (Toprol Xl Tab) 25 mg QAM PO 09/07/16 09:00 10/07/16 08:59 09/11/16 09:19 25 MG Glucose (Glucose 40% Gel) 15-30 GRAMS 15 GRAMS... UD PRN PO 09/07/16 05:15 10/07/16 05:14 Glucose (Glucose Chew Tab) 4-8 Tablets 4 Tabl... UD PRN PO 09/07/16 05:15 10/07/16 05:14 Dextrose (Dextrose 50% 50ML Syringe) 25-50ML OF 50% DW IV FOR... UD PRN IV 09/07/16 05:15 10/07/16 05:14 Glucagon (Glucagon Inj) 1 mg UD PRN SQ 09/07/16 05:15 10/07/16 05:14 Miscellaneous Information (Consult Glycemic Management Pharmacy) 1 ea UD PRN N/A 09/07/16 05:23 10/07/16 05:22 Beclomethasone Dipropionate (Qvar 80 Mcg Hfa Inhaler) 1 puffs BID INH 09/07/16 21:00 10/07/16 20:59 09/11/16 09:18 1 PUFFS Miscellaneous Information 1 ea 1 ea QS N/A 09/07/16 16:00 10/07/16 15:59 Pantoprazole Sodium/Syringe (Protonix Inj/ Syringe) 10 ml @ 5 mls/min DAILY@11 IV 09/09/16 11:00 10/09/16 10:59 09/11/16 12:17 5 MLS/MIN Insulin Aspart (novoLOG ASPART) SLIDING SCALE If C... ACHS SC 09/09/16 11:00 10/09/16 10:59 09/11/16 17:52 6 UNITS Insulin Glargine (Lantus Solostar Pen) 15 unit Q12 SC 09/10/16 16:45 10/10/16 16:44 09/11/16 09:25 15 UNIT Clonidine HCl (Catapres Tab) 0.1 mg Q6H PRN PO 09/11/16 00:45 10/08/16 16:14
[2016-09-11] MEDS: LOVASTATIN 20 MG TAB PO SCH (21:13)
[2016-09-12 00:20] VITALS: BP 154/80; PULSE 61; TEMP 36.6; O2SAT 100
[2016-09-12 07:38] VITALS: BP 140/78; PULSE 66; TEMP 36.9; O2SAT 100
[2016-09-12] MEDS: BECLOMETHASONE DIP HFA 80 MCG 8.7G INH INH SCH ×2 (07:53→21:01)
[2016-09-12] MEDS: ISOSORBIDE MONONITRATE 30 MG TABCR PO SCH (07:53)
[2016-09-12] MEDS: DILTIAZEM HCL 120 MG CAPCR PO SCH (07:53)
[2016-09-12] MEDS: METOPROLOL SUCC 25MG EXT REL TAB PO SCH (07:54)
[2016-09-12] MEDS: INSULIN GLARGINE SOLOSTAR 100 UNITS/ML 3 ML PEN SC SCH ×2 (07:54→21:06)
[2016-09-12 07:56] LABS: BUN/CREATININE RATIO 17.8 (10-20); CALCIUM 8.5 mg/dl (8.5-10.1); CREATININE 1.3 mg/dl (0.60-1.20); POTASSIUM 4.2 mmol/L (3.5-5.1)
[2016-09-12 08:04] LABS: BASO % 0.2 %; BASO ABS # 0.01 K/uL (0-0.2); HEMATOCRIT 29.6 % (37-47); IG% 1.8 %; LYMPH % 25.3 %; LYMPH ABS # 1.51 K/uL (1.2-3.4); MEAN CELL VOLUME 89.4 fL (80-100); MEAN CORPUSCULAR HEMOGLOBIN 30.5 pg (25-34); MEAN PLATELET VOLUME 9.9 fL (7.4-10.4); MONO % 8.7 %; PLATELET COUNT 108 K/uL (130-400); RED BLOOD COUNT 3.31 M/uL (4.2-5.4); WHITE BLOOD COUNT 5.97 K/uL (4.8-10.8)
[2016-09-12 08:15] LABS: COMPLETE YES; MEAN CORPUSCULAR HGB CONC 34.1 g/dl (32-36)
--- NOTE | 2016-09-12 09:06 | DIAGNOSTIC IMAGING REPORT ---
CHEST ONE VIEW PORTABLE HISTORY: Worsening dyspnea on exertion. COMPARISON: Chest 09/07/2016. FINDINGS: No pneumothorax. The heart remains mildly enlarged. No evidence for pulmonary edema. A right PICC terminates at the expected location of the superior cavoatrial junction. This also remains unchanged. Mildly tortuous thoracic aorta. Stable blunting the left lateral costophrenic sulcus. There is again noted a 9 mm right midlung zone nodule. IMPRESSION: No significant change compared to the prior study. Stable mild cardiomegaly and a 9 mm right midlung zone nodule. Electronically signed by: Raghavendra Cisneros M.D. 09/12/2016 9:04 AM Dictated Date/Time: 09/12/2016 9:02 AM
[2016-09-12] MEDS: INSULIN ASPART 100 UNITS/ML 3 ML PEN SC SCH ×4 (09:16→21:06)
[2016-09-12] MEDS: PANTOprazole INJ 40 MG in SYRINGE 0 ML IV SCH (12:28)
[2016-09-12] MEDS: POLYETHYLENE (MIRALAX) 17 GM PACK PO SCH (15:45)
[2016-09-12 16:00] VITALS: BP 168/72; PULSE 63; TEMP 36.3; O2SAT 98
--- NOTE | 2016-09-12 19:10 | Progress Note ---
Medicine Progress Note Date & Time of Visit: Sep 12, 2016 at 19:09. Subjective Patient doing well, denies any new complaints. Tolerating PO. Was seen ambulating in her room and the arora with a walker. No overnight events noted. Reports having a small BM but still feels constipated. Objective Last 8 Hrs Date Time Temp Pulse Resp B/P Pulse Ox O2 Delivery O2 Flow Rate FiO2 09/12/16 16:00 36.3 63 18 168/72 98 09/12/16 16:00 98 Room Air 98 Physical Exam: GENERAL: Patient is in no acute distress. HEENT: No acute trauma, normocephalic, mucous membranes moist, no nasal congestion, no scleral icterus. NECK: No stridor, trachea is midline. LUNGS: Clear to auscultation bilaterally, no wheeze, no rhonchi, breath sounds equal. HEART: Without murmurs gallops or rubs, regular rate and rhythm. ABDOMEN: Soft, nontender, bowel sounds positive EXTREMITIES: No cyanosis; trace LE edema NEUROLOGIC: Oriented x 3, no acute motor or sensory deficits, no focal weakness. SKIN: No rash, no jaundice, no diaphoresis. Laboratory Results: Last 24 Hours Test 09/11/16 20:09 09/12/16 06:50 09/12/16 07:51 09/12/16 07:53 Bedside Glucose 187 mg/dl 150 mg/dl Sodium Level 145 mmol/L Potassium Level 4.2 mmol/L Chloride Level 113 mmol/L Carbon Dioxide Level 24 mmol/L Anion Gap 8.0 mmol/L Blood Urea Nitrogen 23 mg/dl Creatinine 1.30 mg/dl Est Creatinine Clear Calc Drug Dose 45.2 ml/min Estimated GFR () 45.5 Estimated GFR (Non- 39.3 BUN/Creatinine Ratio 17.8 Random Glucose 152 mg/dl Calcium Level 8.5 mg/dl White Blood Count 5.97 K/uL Red Blood Count 3.31 M/uL Hemoglobin 10.1 g/dL Hematocrit 29.6 % Mean Corpuscular Volume 89.4 fL Mean Corpuscular Hemoglobin 30.5 pg Mean Corpuscular Hemoglobin Concent 34.1 g/dl Platelet Count 108 K/uL Mean Platelet Volume 9.9 fL Neutrophils (%) (Auto) 62.0 % Lymphocytes (%) (Auto) 25.3 % Monocytes (%) (Auto) 8.7 % Eosinophils (%) (Auto) 2.0 % Basophils (%) (Auto) 0.2 % Neutrophils # (Auto) 3.70 K/uL Lymphocytes # (Auto) 1.51 K/uL Monocytes # (Auto) 0.52 K/uL Eosinophils # (Auto) 0.12 K/uL Basophils # (Auto) 0.01 K/uL RDW Standard Deviation 47.3 fL RDW Coefficient of Variation 14.6 % Immature Granulocyte % (Auto) 1.8 % Immature Granulocyte # (Auto) 0.11 K/uL Nucleated RBC Absolute Count (auto) 0.03 K/uL Nucleated Red Blood Cells % 0.5 % Test 09/12/16 11:36 09/12/16 16:14 09/12/16 17:23 Bedside Glucose 201 mg/dl 103 mg/dl 176 mg/dl Assessment & Plan GI BLEED: with Acute Blood Loss Anemia -most likely from diverticular bleed in the setting of Coumadin use -Hgb: 11 --> 8.1 at lowest -s/p 3 units PRBCs transfusion this admission, Hb 10.1 today -INR was reversed with Vit K as well -s/p EGD: no signs of bleeding -Colonoscopy: (+) blood in the entire colon, diverticulosis -on Protonix drip initially, now on daily -tolerating regular diet now -HOLD coumadin until ok to resume by GI (approximately 2 weeks) -will start iron supplement KARLEE on CKD STAGE III: -likely prerenal from hypovolemia and blood loss -creat was 1.6 on 09/02/16; admitted with 2.2 --> improved to 1.4 -monitor, hold Lasix for now -hold nephrotoxins UTI: ruled out -urine culture: yeast not javon, now showing javon glabrata, asymptomatic, will need a repeat urine culture as outpatient -stopped Cipro -discussed with ID, if symptomatic may require treatment CHRONIC DIASTOLIC CHF: -patient takes Lasix at home due to chronic diastolic CHF/LE edema, lasix held for now -held diuretic due to KARLEE -monitor fluid status -does not appear to be in CHF PAF: -remains in NSR -coumadin held due to GI bleed -rate controlled DM TYPE II: -Glycemic pharmacy consulted for insulin COPD: -not in exacerbation -continue home inhalers HTN: -hold ARB and Lasix due to KARLEE -continue Metoprolol, Diltiazem, ISMN -monitor CAD: -should ideally keep Hgb close to 10 due to CAD -continue b-joe, statin, imdur -hold aspirin, Coumadin due to GI bleed Current Inpatient Medications: Current Inpatient Medications Medications (Trade) Dose Ordered Sig/Rose Route Start Time Stop Time Status Last Admin Dose Admin Al Hydrox/Mg Hydrox/Simethicone (Maalox Max Susp) 15 ml Q4H PRN PO 09/07/16 05:00 10/07/16 04:59 Magnesium Hydroxide (Milk Of Magnesia Susp) 30 ml Q12H PRN PO 09/07/16 05:00 10/07/16 04:59 09/11/16 13:55 30 ML Ondansetron HCl (Zofran Inj) 4 mg Q6H PRN IV 09/07/16 05:00 10/07/16 04:59 Diltiazem HCl (Cardizem Cd Cap) 120 mg DAILY PO 09/07/16 09:00 10/07/16 08:59 09/12/16 07:53 120 MG Isosorbide Mononitrate (Imdur Ext Rel Tab) 30 mg DAILY PO 09/07/16 09:00 10/07/16 08:59 09/12/16 07:53 30 MG Levalbuterol (Xopenex 1.25MG/ 3ML Neb) 1.25 mg Q4 PRN INH 09/07/16 05:15 10/07/16 05:14 Lovastatin (Mevacor Tab) 80 mg HS PO 09/07/16 21:00 10/07/16 20:59 09/11/16 21:13 80 MG Miscellaneous Information (Order Awaiting Action) 1 ea QS N/A 09/07/16 08:00 10/07/16 07:59 Metoprolol Succinate (Toprol Xl Tab) 25 mg QAM PO 09/07/16 09:00 10/07/16 08:59 09/12/16 07:54 25 MG Glucose (Glucose 40% Gel) 15-30 GRAMS 15 GRAMS... UD PRN PO 09/07/16 05:15 10/07/16 05:14 Glucose (Glucose Chew Tab) 4-8 Tablets 4 Tabl... UD PRN PO 09/07/16 05:15 2/7/17 05:14 Dextrose (Dextrose 50% 50ML Syringe) 25-50ML OF 50% DW IV FOR... UD PRN IV 09/07/16 05:15 10/07/16 05:14 Glucagon (Glucagon Inj) 1 mg UD PRN SQ 09/07/16 05:15 10/07/16 05:14 Miscellaneous Information (Consult Glycemic Management Pharmacy) 1 ea UD PRN N/A 09/07/16 05:23 10/07/16 05:22 Beclomethasone Dipropionate (Qvar 80 Mcg Hfa Inhaler) 1 puffs BID INH 09/07/16 21:00 10/07/16 20:59 09/12/16 07:53 1 PUFFS Miscellaneous Information 1 ea 1 ea QS N/A 09/07/16 16:00 10/07/16 15:59 Pantoprazole Sodium/Syringe (Protonix Inj/ Syringe) 10 ml @ 5 mls/min DAILY@11 IV 09/09/16 11:00 10/09/16 10:59 09/12/16 12:28 5 MLS/MIN Insulin Aspart (novoLOG ASPART) SLIDING SCALE If C... ACHS SC 09/09/16 11:00 10/09/16 10:59 09/12/16 18:04 10 UNITS Insulin Glargine (Lantus Solostar Pen) 15 unit Q12 SC 09/10/16 16:45 10/10/16 16:44 09/12/16 07:54 15 UNIT Clonidine HCl (Catapres Tab) 0.1 mg Q6H PRN PO 09/11/16 00:45 10/08/16 16:14 Polyethylene (Miralax Powder Packet) 17 gm DAILY PO 09/12/16 15:45 10/12/16 15:44
[2016-09-12] MEDS: LOVASTATIN 20 MG TAB PO SCH (21:00)
[2016-09-13] VITALS: BP 145/74; PULSE 65; TEMP 36.7; O2SAT 100
[2016-09-13 07:32] VITALS: BP 142/70; PULSE 63; TEMP 36.4; O2SAT 100
[2016-09-13] MEDS: DILTIAZEM HCL 120 MG CAPCR PO SCH (07:55)
[2016-09-13] MEDS: BECLOMETHASONE DIP HFA 80 MCG 8.7G INH INH SCH ×2 (07:55→20:52)
[2016-09-13] MEDS: ISOSORBIDE MONONITRATE 30 MG TABCR PO SCH (07:56)
[2016-09-13] MEDS: METOPROLOL SUCC 25MG EXT REL TAB PO SCH (07:56)
[2016-09-13] MEDS: POLYETHYLENE (MIRALAX) 17 GM PACK PO SCH (08:48)
[2016-09-13] MEDS: INSULIN ASPART 100 UNITS/ML 3 ML PEN SC SCH ×4 (08:54→21:02)
[2016-09-13] MEDS: INSULIN GLARGINE SOLOSTAR 100 UNITS/ML 3 ML PEN SC SCH ×2 (08:54→21:03)
[2016-09-13 09:00] LABS: MEAN CORPUSCULAR HEMOGLOBIN 29.9 pg (25-34); MEAN CORPUSCULAR HGB CONC 33.2 g/dl (32-36); RED BLOOD COUNT 3.11 M/uL (4.2-5.4); WHITE BLOOD COUNT 5.59 K/uL (4.8-10.8)
[2016-09-13 09:08] LABS: MEAN PLATELET VOLUME 10.5 fL (7.4-10.4); PLATELET COUNT 98 K/uL (130-400)
[2016-09-13 09:23] LABS: BUN/CREATININE RATIO 17.6 (10-20); CALCIUM 8.5 mg/dl (8.5-10.1); CREATININE 1.3 mg/dl (0.60-1.20); POTASSIUM 4.1 mmol/L (3.5-5.1)
[2016-09-13 09:40] VITALS: BP 147/86
[2016-09-13 09:41] LABS: BASO % 0.2 %; BASO ABS # 0.01 K/uL (0-0.2); COMPLETE YES; EOS % 1.8 %; HYPERSEGMENTED POLYS 1+; IG% 1.3 %; LYMPH % 23.6 %; LYMPH ABS # 1.32 K/uL (1.2-3.4); MONO % 5.5 %; NEUT % 67.6 %; POLYCHROMASIA 1+
[2016-09-13] MEDS: PANTOprazole INJ 40 MG in SYRINGE 0 ML IV SCH (11:28)
--- NOTE | 2016-09-13 13:13 | Pharmacy Progress Note ---
Glycemic: Assessment & Plan Date of Service Sep 13, 2016. Assessment & Plan Recent Pertinent Medications Outpatient Anti-diabetic Regimen: * Lantus 25 units SQ AM + 11 units SQ PM * NovoLog 2-8 units SQ AC/HS PRN The patient is currently receiving: * Basal insulin: Lantus 15 units every 12 hours * Correctional Insulin: NovoLog Correction per scale AC/HS Goal Range: Low 120 mg/dL - High 140 mg/dL Correction Factor: 20 mg/dL/unit * Prandial insulin: Per carb ratio of 1 unit per 7 grams CHO consumed Assessment & Plan ASSESSMENT: * 76yo T2DM female known to pharmacy from previous admissions/glycemic consults * Pt with adequate outpatient control per recent A1c in March 2016. Repeat A1c = 6.7% 09/08/16 but value may not be totally reliable based on acute blood loss and possible transfusion * BSG control improved over the past 24-48 hours. No change in current regimen. * ADA & AACE recommend a goal blood sugar range 140-180 mg/dl for the majority of critically ill & non-critically ill patients. However, more stringent targets may be selected in individual cases. Will utilize more stringent target of 120-140mg/dl based for a tightly controlled diabetic at baseline. PLAN FOR INPATIENT GLYCEMIC CONTROL: * Basal insulin with LANTUS 15 units SQ BID * Correctional Insulin with NOVOLOG per scale AC/HS * Goal Range: Low 120 mg/dL - High 140 mg/dL * Correction Factor: 20 mg/dL/unit * Nutritional / Prandial insulin per carb ratio of 1 unit per 7 grams CHO consumed * Please note that the plan above was derived based on current level of insulin resistance and hospital stress. These recommendations are appropriate for inpatient admission only. Plan of care upon discharge will need to be reassessed to avoid potential outpatient hypo/hyperglycemia. Thank you.
[2016-09-13 15:44] VITALS: BP 167/72; PULSE 63; TEMP 36.8; O2SAT 100
[2016-09-13 16:00] VITALS: O2SAT 100
--- NOTE | 2016-09-13 19:37 | Progress Note ---
Medicine Progress Note Date & Time of Visit: Sep 13, 2016 at 19:36. Subjective Patient reports feeling well, no overnight events noted. Tolerating PO. Had a BM with no blood. Ambulating short distances without difficulty. No other complaints at this time. Objective Last 8 Hrs Date Time Temp Pulse Resp B/P Pulse Ox O2 Delivery O2 Flow Rate FiO2 09/13/16 16:00 100 Room Air 98 09/13/16 15:44 36.8 63 18 167/72 100 Room Air Physical Exam: GENERAL: Patient is in no acute distress. HEENT: No acute trauma, normocephalic, mucous membranes moist, no nasal congestion, no scleral icterus. NECK: No stridor, trachea is midline. LUNGS: Clear to auscultation bilaterally, no wheeze, no rhonchi, breath sounds equal. HEART: Without murmurs gallops or rubs, regular rate and rhythm. ABDOMEN: Soft, nontender, bowel sounds positive EXTREMITIES: No cyanosis; B/L LE edema NEUROLOGIC: Oriented x 3, no acute motor or sensory deficits, no focal weakness. SKIN: No rash, no jaundice, no diaphoresis. Laboratory Results: Last 24 Hours Test 09/12/16 20:19 09/13/16 07:51 09/13/16 08:25 09/13/16 11:44 Bedside Glucose 162 mg/dl 161 mg/dl 186 mg/dl White Blood Count 5.59 K/uL Red Blood Count 3.11 M/uL Hemoglobin 9.3 g/dL Hematocrit 28.0 % Mean Corpuscular Volume 90.0 fL Mean Corpuscular Hemoglobin 29.9 pg Mean Corpuscular Hemoglobin Concent 33.2 g/dl Platelet Count 98 K/uL Mean Platelet Volume 10.5 fL Neutrophils (%) (Auto) 67.6 % Lymphocytes (%) (Auto) 23.6 % Monocytes (%) (Auto) 5.5 % Eosinophils (%) (Auto) 1.8 % Basophils (%) (Auto) 0.2 % Neutrophils # (Auto) 3.78 K/uL Lymphocytes # (Auto) 1.32 K/uL Monocytes # (Auto) 0.31 K/uL Eosinophils # (Auto) 0.10 K/uL Basophils # (Auto) 0.01 K/uL RDW Standard Deviation 47.6 fL RDW Coefficient of Variation 14.9 % Immature Granulocyte % (Auto) 1.3 % Immature Granulocyte # (Auto) 0.07 K/uL Hypersegmented Polys 1+ Polychromasia 1+ Sodium Level 144 mmol/L Potassium Level 4.1 mmol/L Chloride Level 112 mmol/L Carbon Dioxide Level 25 mmol/L Anion Gap 7.0 mmol/L Blood Urea Nitrogen 23 mg/dl Creatinine 1.30 mg/dl Est Creatinine Clear Calc Drug Dose 45.2 ml/min Estimated GFR () 45.5 Estimated GFR (Non- 39.3 BUN/Creatinine Ratio 17.6 Random Glucose 164 mg/dl Calcium Level 8.5 mg/dl Test 09/13/16 16:53 Bedside Glucose 122 mg/dl Date/Time Source Procedure Growth Status 09/13/16 00:00 Urine , Clean Catch Urine Culture Pending Received Assessment & Plan GI BLEED: with Acute Blood Loss Anemia -most likely from diverticular bleed in the setting of Coumadin use -INR was therapeutic but was reversed with vit K due to active bleed -Hgb: 11 --> 8.1 at lowest -s/p 3 units PRBCs transfusion this admission, Hb 9.3 today -s/p EGD: no signs of bleeding -Colonoscopy: (+) blood in the entire colon, diverticulosis -on Protonix drip initially, now on daily -tolerating regular diet now -HOLD coumadin until ok to resume by GI (approximately 2 weeks) -will start iron supplement KARLEE on CKD STAGE III: -likely prerenal from hypovolemia and blood loss -creat was 1.6 on 09/02/16; admitted with 2.2 --> improved to 1.3 -monitor, hold Lasix for now -hold nephrotoxins UTI: ruled out -urine culture: yeast not javon, now showing javon glabrata, asymptomatic, will need a repeat urine culture, will order today -stopped Cipro -discussed with ID, if symptomatic may require treatment CHRONIC DIASTOLIC CHF: -patient takes Lasix at home due to chronic diastolic CHF/LE edema, lasix held for now -held diuretic due to KARLEE -monitor fluid status -does not appear to be in CHF PAF: -remains in NSR -coumadin held due to GI bleed -rate controlled DM TYPE II: -Glycemic pharmacy consulted for insulin COPD: -not in exacerbation -continue home inhalers HTN: -hold ARB and Lasix due to KARLEE -continue Metoprolol, Diltiazem, ISMN -monitor CAD: -should ideally keep Hgb close to 10 due to CAD -continue b-joe, statin, imdur -hold aspirin, Coumadin due to GI bleed Current Inpatient Medications: Current Inpatient Medications Medications (Trade) Dose Ordered Sig/Rose Route Start Time Stop Time Status Last Admin Dose Admin Al Hydrox/Mg Hydrox/Simethicone (Maalox Max Susp) 15 ml Q4H PRN PO 09/07/16 05:00 10/07/16 04:59 Magnesium Hydroxide (Milk Of Magnesia Susp) 30 ml Q12H PRN PO 09/07/16 05:00 10/07/16 04:59 09/11/16 13:55 30 ML Ondansetron HCl (Zofran Inj) 4 mg Q6H PRN IV 09/07/16 05:00 10/07/16 04:59 Diltiazem HCl (Cardizem Cd Cap) 120 mg DAILY PO 09/07/16 09:00 10/07/16 08:59 09/13/16 07:55 120 MG Isosorbide Mononitrate (Imdur Ext Rel Tab) 30 mg DAILY PO 09/07/16 09:00 10/07/16 08:59 09/13/16 07:56 30 MG Levalbuterol (Xopenex 1.25MG/ 3ML Neb) 1.25 mg Q4 PRN INH 09/07/16 05:15 10/07/16 05:14 Lovastatin (Mevacor Tab) 80 mg HS PO 09/07/16 21:00 10/07/16 20:59 09/12/16 21:00 80 MG Miscellaneous Information (Order Awaiting Action) 1 ea QS N/A 09/07/16 08:00 10/07/16 07:59 Metoprolol Succinate (Toprol Xl Tab) 25 mg QAM PO 09/07/16 09:00 10/07/16 08:59 09/13/16 07:56 25 MG Glucose (Glucose 40% Gel) 15-30 GRAMS 15 GRAMS... UD PRN PO 09/07/16 05:15 10/07/16 05:14 Glucose (Glucose Chew Tab) 4-8 Tablets 4 Tabl... UD PRN PO 09/07/16 05:15 10/07/16 05:14 Dextrose (Dextrose 50% 50ML Syringe) 25-50ML OF 50% DW IV FOR... UD PRN IV 09/07/16 05:15 10/07/16 05:14 Glucagon (Glucagon Inj) 1 mg UD PRN SQ 09/07/16 05:15 10/07/16 05:14 Miscellaneous Information (Consult Glycemic Management Pharmacy) 1 ea UD PRN N/A 09/07/16 05:23 10/07/16 05:22 Beclomethasone Dipropionate (Qvar 80 Mcg Hfa Inhaler) 1 puffs BID INH 09/07/16 21:00 10/07/16 20:59 09/13/16 07:55 1 PUFFS Miscellaneous Information 1 ea 1 ea QS N/A 09/07/16 16:00 10/07/16 15:59 Pantoprazole Sodium/Syringe (Protonix Inj/ Syringe) 10 ml @ 5 mls/min DAILY@11 IV 09/09/16 11:00 10/09/16 10:59 09/13/16 11:28 5 MLS/MIN Insulin Aspart (novoLOG ASPART) SLIDING SCALE If C... ACHS SC 09/09/16 11:00 10/09/16 10:59 09/13/16 18:05 7 UNITS Insulin Glargine (Lantus Solostar Pen) 15 unit Q12 SC 09/10/16 16:45 10/10/16 16:44 09/13/16 08:54 15 UNIT Clonidine HCl (Catapres Tab) 0.1 mg Q6H PRN PO 09/11/16 00:45 10/08/16 16:14 Polyethylene (Miralax Powder Packet) 17 gm DAILY PO 09/12/16 15:45 10/12/16 15:44 09/13/16 08:48 17 GM
[2016-09-13] MEDS: LOVASTATIN 20 MG TAB PO SCH (20:53)
[2016-09-13 23:40] VITALS: BP 177/79; PULSE 65; TEMP 36.4; O2SAT 100
[2016-09-14 06:32] VITALS: BP 155/74; PULSE 63
[2016-09-14 07:51] VITALS: BP 129/46; PULSE 63; TEMP 36.6; O2SAT 100
[2016-09-14] MEDS: POLYETHYLENE (MIRALAX) 17 GM PACK PO SCH (08:00)
[2016-09-14] MEDS: DILTIAZEM HCL 120 MG CAPCR PO SCH (08:31)
[2016-09-14] MEDS: ISOSORBIDE MONONITRATE 30 MG TABCR PO SCH (08:31)
[2016-09-14] MEDS: METOPROLOL SUCC 25MG EXT REL TAB PO SCH (08:32)
[2016-09-14] MEDS: INSULIN ASPART 100 UNITS/ML 3 ML PEN SC SCH ×2 (08:50→12:28)
[2016-09-14] MEDS: BECLOMETHASONE DIP HFA 80 MCG 8.7G INH INH SCH (08:51)
[2016-09-14] MEDS ORDERED: INSULIN GLARGINE SOLOSTAR 100 UNITS/ML 3 ML PEN SC SCH ×3 (09:00→20:00)
[2016-09-14 11:11] LABS: HEMATOCRIT 28.6 % (37-47); MEAN CELL VOLUME 90.5 fL (80-100); MEAN CORPUSCULAR HEMOGLOBIN 29.7 pg (25-34); MEAN CORPUSCULAR HGB CONC 32.9 g/dl (32-36); RED BLOOD COUNT 3.16 M/uL (4.2-5.4); WHITE BLOOD COUNT 4.78 K/uL (4.8-10.8)
[2016-09-14 11:19] LABS: MEAN PLATELET VOLUME 9.9 fL (7.4-10.4); PLATELET COUNT 98 K/uL (130-400)
[2016-09-14] MEDS: PANTOprazole INJ 40 MG in SYRINGE 0 ML IV SCH (11:39)
[2016-09-14 11:46] LABS: BUN/CREATININE RATIO 13.8 (10-20); CALCIUM 8.4 mg/dl (8.5-10.1); CREATININE 1.7 mg/dl (0.60-1.20); POTASSIUM 4.7 mmol/L (3.5-5.1)
[2016-09-14 12:35] VITALS: BP 129/46; PULSE 63; TEMP 36.6; O2SAT 100
[2016-09-14] MEDS ORDERED: FERR325T PO (13:03)
--- NOTE | 2016-09-14 13:09 | Discharge Instructions ---
Discharge Instructions Admission Reason for Admission: Charlie (Acute Kidney Injury), Gi Bleeding Discharge Discharge Diagnosis / Problem: CHARLIE, GI bleed, Anemia Discharge Goals Goal(s): Therapeutic intervention Activity Recommendations Activity Limitations: resume your previous activity Exercise/Sports Limitations: gradually increase as tolerated . Instructions / Follow-Up Instructions / Follow-Up Please see Dr. Waterman on September 22 at 1:50PM for hospital follow up Please do not restart coumadin for another 10 days, until after discussing with Dr. Waterman and Conchita; GI was ok with starting coumadin again after 2 weeks from time of bleed if needed. Current Hospital Diet Patient's current hospital diet: Diabetes Type 2 Diet Discharge Diet Recommended Diet: Diabetes Type 2 Diet Procedures Procedures Performed: EGD/Colonoscopy Pending Studies Studies pending at discharge: yes List of pending studies: Urine culture, will need to have results followed Laboratory Results Hemoglobin A1c Test 09/08/16 06:43 Range/Units Estimated Average Glucose 146 mg/dl Hemoglobin A1c 6.7 H 4.5-5.6 % Medical Emergencies . Who to Call and When: Medical Emergencies: If at any time you feel your situation is an emergency, please call 911 immediately. . Non-Emergent Contact Non-Emergency issues call your: Primary Care Provider . . "Provider Documentation" section prepared by Miya Rudolph. VTE Core Measure Inpt VTE Proph given/why not?: Treatment not indicated
[2016-09-14] MEDS ORDERED: INSULIN GLARGINE SOLOSTAR 100 UNITS/ML 3 ML PEN SC ONE (14:15)
[2016-09-15] MEDS ORDERED: INSULIN GLARGINE SOLOSTAR 100 UNITS/ML 3 ML PEN SC SCH (08:00)
--- NOTE | 2016-09-30 13:34 | Discharge Summary ---
Discharge Summary Admission Date: Sep 07, 2016 at 05:04 Discharge Date: Sep 14, 2016 Discharge Disposition: Home with services Principal Diagnosis: KARLEE, GI bleed, anemia Pending Studies/Follow-Up: Restart or re-evaluate need for coumadin, GI follow up Medication Reconciliation New Medications: Ferrous Sulfate (Ferrous Sulfate) 325 Mg Tab 1 TABS PO DAILY, #30 TABS Continued Medications: Beclomethasone Dip (Qvar) 80 Mcg/Act Aer 1 PUFF INH BID Calcitriol (Rocaltrol Cap) 0.25 Mcg Cap 0.25 MCG PO DAILY, CAP Cranberry (Vaccinium Macrocarp (Cranberry) 400 Mg Cap 400 MG PO BID Cyanocobalamin (Vitamin B-12) 500 Mcg Tab 500 MCG PO DAILY, TAB Diltiazem Hcl Coated Beads (Cardizem Cd) 120 Mg Cap 120 MG PO DAILY Furosemide (Lasix) 80 Mg Tab 80 MG PO BID, TAB 3 Refills Insulin Aspart (Novolog) 100 Unit/ Inj UNITS SC ACHS PRN for sliding scale, BTL 150-200 - 2 UNITS 201-250 - 4 UNITS 251-300 - 6 UNITS 301-350 - 8 UNITS Insulin Glargine (Lantus) 100 Unit/Ml Inj 25 UNITS SQ QAM, VIAL Insulin Glargine (Lantus) 100 Unit/Ml Inj 11 UNITS SQ EVENING MEAL, VIAL Isosorbide Mononitrate Ext Rel (Imdur Ext Rel) 30 Mg Ertab 30 MG PO DAILY, TAB Levalbuterol Hcl (Levalbuterol Hcl) 1.25 Mg/3 Ml Neb 3 ML INH Q4 PRN for SOB/Wheezing Losartan Potassium (Cozaar) 100 Mg Tab 50 MG PO DAILY for 30 Days, #15 TAB 5 Refills 1/2 TABLET DOSE Lovastatin (Mevacor) 40 Mg Tab 80 MG PO HS Metoprolol Succinate (Metoprolol Succinate ER) 25 Mg Tabcr 25 MG PO DAILY, #15 Nitroglycerin (Nitrostat) 0.4 Mg Sub 0.4 MG UT PRN PRN for Chest Pain, BTL Omeprazole (Omeprazole) 20 Mg Tab 20 MG PO DAILY Solifenacin (Vesicare) 5 Mg Tab 5 MG PO DAILY, TAB Umeclidinium-Vilanterol (Anoro Ellipta 62.5-25 Mcg/INH) 1 Aer Aer 1 PUFF INH DAILY Discontinued Medications: Levofloxacin (Levaquin) 500 Mg Tab 500 MG PO DAILY, #7 TAB Warfarin Sod (Jantoven) 4 Mg Tab 2 MG PO 2XWK, TAB 1/2 TABLET ON THURSDAY & THURSDAY Warfarin Sodium (Coumadin) 4 Mg Tab 4 MG PO 5XWK for 30 Days, #30 TAB 3 Refills SUN, , THU, THU & SAT Admission Information HPI (per Admitting provider): This is a 76 year old female with PMH of CAD, paroxysmal A. Fib on anticoagulation, significant COPD requiring nocturnal O2, insulin-dependent DM2 , CKD stage 3, chronic diastolic CHF, HTN, HLD presents to the ER with dizziness , weakness and generally feeling bad. She states that she was here in the ER on September 02 with difficulty breathing, likely from an exacerbation of her COPD - she was sent home; was seen by primary care as an outpatient and given prednisone. Finished this course - she presented here today because of dizziness , she tried to get out of bed and she fell back into bad; she felt generally weak and had to call EMS to bring her to the ER. Upon presentation here, it was noted that she had a significant drop in her Hgb level as well as a rise in her creatinine. She did not recall any bleeding from anywhere. During exam by ER physician, it was noted patient had blood clot and bright red blood per rectum. Patient states she feels weak and dehydrated. No chest pain. Breathing status is improved from a few days ago. Physical Exam (per Admitting): General Appearance: no apparent distress Head: normocephalic, atraumatic ENT: + pertinent finding (dry mucous membranes) Respiratory/Chest: lungs clear, normal breath sounds, no respiratory distress, no accessory muscle use Cardiovascular: regular rate, rhythm, no murmur Abdomen/GI: normal bowel sounds, non tender, soft Extremities/Musculoskelatal: + pertinent finding (+1 pitting edema b/l LE) Neurologic/Psych: no motor/sensory deficits, alert, normal mood/affect Skin: normal color Lymphatic: no adenopathy Hospital Course GI BLEED: with Acute Blood Loss Anemia -most likely from diverticular bleed in the setting of Coumadin use -INR was therapeutic but was reversed with vit K due to active bleed -Hgb: 11 --> 8.1 at lowest -s/p 3 units PRBCs transfusion this admission, Hb 9.4 today -s/p EGD: no signs of bleeding -Colonoscopy: (+) blood in the entire colon, diverticulosis -on Protonix drip initially, now on daily -tolerating regular diet now -HOLD coumadin until ok to resume by GI (approximately 2 weeks) -start iron supplement KARLEE on CKD STAGE III: -likely prerenal from hypovolemia and blood loss -creat was 1.6 on 09/02/16; admitted with 2.2 --> improved to baseline -monitor, hold Lasix for now -hold nephrotoxins UTI: ruled out -urine culture: yeast not javon, now showing javon glabrata, asymptomatic, will need a repeat urine culture, will order today -stopped Cipro -discussed with ID, if symptomatic may require treatment CHRONIC DIASTOLIC CHF: -patient takes Lasix at home due to chronic diastolic CHF/LE edema, lasix held for now -held diuretic due to KARLEE -monitor fluid status -does not appear to be in CHF PAF: -remains in NSR -coumadin held due to GI bleed -rate controlled DM TYPE II: -Glycemic pharmacy consulted for insulin COPD: -not in exacerbation -continue home inhalers HTN: -hold ARB and Lasix due to KARLEE -continue Metoprolol, Diltiazem, ISMN -monitor CAD: -should ideally keep Hgb close to 10 due to CAD -continue b-joe, statin, imdur -hold aspirin, Coumadin due to GI bleed PHYSICAL EXAM DAY OF DISCHARGE: GENERAL: Patient is in no acute distress. HEENT: No acute trauma, normocephalic, mucous membranes moist, no nasal congestion, no scleral icterus. NECK: No stridor, trachea is midline. LUNGS: Clear to auscultation bilaterally, no wheeze, no rhonchi, breath sounds equal. HEART: Without murmurs gallops or rubs, regular rate and rhythm. ABDOMEN: Soft, nontender, bowel sounds positive EXTREMITIES: No cyanosis: B/L LE edema NEUROLOGIC: Oriented, no acute motor or sensory deficits, no focal weakness. SKIN: No rash, no jaundice, no diaphoresis. Total time spent on discharge = 39 This includes examination of the patient, discharge planning, medication reconciliation, and communication with other providers. Discharge Instructions see pt instructions
[2017-01-06] MEDS ORDERED: CLOT1CRE4 TOP (17:09)
[2017-02-13] MEDS ORDERED: LCTX PO (16:14)
[2017-02-13] MEDS ORDERED: LVQ750 PO (16:14)
[2017-03-18] MEDS ORDERED: FURO80TA63 PO (15:02)
[2017-03-18] MEDS ORDERED: DXY100 PO (15:02)
[2017-03-18] MEDS ORDERED: BENZ100C7 PO (15:02)
[2017-03-18] MEDS ORDERED: FURO40TA3 PO (15:18)
[2017-03-26] MEDS ORDERED: LCTX PO (12:48)
[2017-03-26] MEDS ORDERED: LVQ750 PO (12:48)
== END 2016-09-14 15:01 | disposition home health service (06) | DRG 813 ==
LOC: ENRESERVDT → ENRESERVTM → EDBD 02:48 → C.EDB 02:49 → C.2T 05:04 → C.MS4W 09-09 16:30
PROVIDERS: ADMIT Family Medicine; ATTEND Internal Medicine
PROC: 0DJD8ZZ Inspection of Lower Intestinal Tract, Via Natural or Artificial Opening Endoscopic (ICD-10-PCS; principal; 2016-09-08 10:48)
DX: D68.32 Hemorrhagic disorder due to extrinsic circulating anticoagulants (principal); K57.31 Diverticulosis of large intestine without perforation or abscess with bleeding; N17.9 Acute kidney failure, unspecified; N18.4 Chronic kidney disease, stage 4 (severe); I50.32 Chronic diastolic (congestive) heart failure; N39.0 Urinary tract infection, site not specified; E11.21 Type 2 diabetes mellitus with diabetic nephropathy; T45.515A Adverse effect of anticoagulants, initial encounter; E11.51 Type 2 diabetes mellitus with diabetic peripheral angiopathy without gangrene; E11.43 Type 2 diabetes mellitus with diabetic autonomic (poly)neuropathy; K21.9 Gastro-esophageal reflux disease without esophagitis; J44.9 Chronic obstructive pulmonary disease, unspecified; G62.9 Polyneuropathy, unspecified; E78.5 Hyperlipidemia, unspecified; I12.9 Hypertensive chronic kidney disease with stage 1 through stage 4 chronic kidney disease, or unspecified chronic kidney disease; K44.9 Diaphragmatic hernia without obstruction or gangrene; Z87.891 Personal history of nicotine dependence; I48.0 Paroxysmal atrial fibrillation; Z79.01 Long term (current) use of anticoagulants; I25.10 Atherosclerotic heart disease of native coronary artery without angina pectoris; K63.5 Polyp of colon; K22.2 Esophageal obstruction; Z86.73 Personal history of transient ischemic attack (TIA), and cerebral infarction without residual deficits; K57.10 Diverticulosis of small intestine without perforation or abscess without bleeding; Z96.649 Presence of unspecified artificial hip joint; Y92.009 Unspecified place in unspecified non-institutional (private) residence as the place of occurrence of the external cause; Z99.81 Dependence on supplemental oxygen

== ENCOUNTER 2017-01-06 14:46 | Emergency (ER) | payer OTHER ==
[~2017-01-06] VITALS: Ht 165.1 cm; Wt 110.0 kg
[~2017-01-06 14:46] MED LIST changes: -CRDCD120 PO; -CYAN100T PO; +CYAN500T PO; +DILT120C51 PO; +FERR1TAB62 PO; +INSDGI SQ; -INSUINJ4 SQ; -LEVO-366 PO; -LOVA40TA3 PO; +LOVA40TA43 PO; -WARF4TAB PO; -WARF4TAB8 PO
[2017-01-06 14:55] VITALS: TEMP 36.3; Ht 165.1 cm; Wt 110.0 kg
[2017-01-06] MEDS ORDERED: FLUCONAZOLE 50 MG TAB PO ONE (16:00)
[2017-01-06 16:16] LABS: BASO % 0.2 %; BASO ABS # 0.01 K/uL (0-0.2); COMPLETE YES; EOS % 1.5 %; HEMATOCRIT 33.7 % (37-47); IG% 0.2 %; LYMPH % 25.7 %; LYMPH ABS # 1.18 K/uL (1.2-3.4); MEAN CELL VOLUME 92.6 fL (80-100); MEAN CORPUSCULAR HEMOGLOBIN 30.2 pg (25-34); MEAN CORPUSCULAR HGB CONC 32.6 g/dl (32-36); MEAN PLATELET VOLUME 9.9 fL (7.4-10.4); MONO % 8.9 %; NEUT % 63.5 %; PLATELET COUNT 106 K/uL (130-400); RED BLOOD COUNT 3.64 M/uL (4.2-5.4)
[2017-01-06] MEDS ORDERED: IMDSR60 PO (16:23)
[2017-01-06] MEDS ORDERED: NVLG (16:23)
[2017-01-06] MEDS ORDERED: CALC0.5C2 PO (16:23)
[2017-01-06] MEDS ORDERED: FERR325T5 PO (16:24)
[2017-01-06] MEDS ORDERED: WARF4TAB8 PO (16:24)
[2017-01-06 16:34] LABS: BUN/CREATININE RATIO 12.1 (10-20); CALCIUM 9.4 mg/dl (8.5-10.1); CREATININE 1.7 mg/dl (0.60-1.20); POTASSIUM 3.8 mmol/L (3.5-5.1)
[2017-01-06] MEDS ORDERED: CEFAZOLIN SOD 1000MG/55 ML D5W IV STA (16:49)
[2017-01-06] MEDS ORDERED: CLOT-40 TOP (17:09)
[2017-01-06] MEDS ORDERED: CEPH500C PO (17:09)
[2017-01-06 18:20] VITALS: BP 136/74; PULSE 74; O2SAT 96
--- NOTE | 2017-01-06 18:34 | EMERGENCY ROOM VISIT NOTE ---
History Report prepared by Natalya: Leah Sutherland Under the Supervision of: Dr. Soren Romero M.D. First contact with patient: 15:34 Chief Complaint: INFECTION Stated Complaint: SENT BY DR; INFECTION Nursing Triage Summary: cellulitis in groin, and upper left leg for 2 weeks worse this am pt saw pcp and referred to ER History of Present Illness The patient is a 76 year old female who presents to the Emergency Room with complaints of a constant infection beginning 2 weeks ago. The patient states that she has an infection that started in her groin area as a small area and has spread and now goes down to her upper leg. She reports that the infection has significantly worsened over the last 2 days and when she saw her PCP today they referred her to the ED. The patient complains of redness in the groin area. She denies any achiness, fever, vomiting, and diarrhea. She notes that she has never had anything like this before. The patient stats that she has diabetes and is not on any immunosuppressants or antibiotics. Source of History: patient Onset: 2 weeks ago Position: other (groin) Quality: other (red) Timing: constant Associated Symptoms: No diarrhea, No fevers, No vomiting Note: The patient complains of redness in the groin area and upper legs. She denies any achiness. Review of Systems See HPI for pertinent positives & negatives. A total of 10 systems reviewed and were otherwise negative. Past Medical & Surgical Medical Problems: (1) Asthma (2) C. difficile colitis (3) Chronic kidney disease (4) COPD (chronic obstructive pulmonary disease) (5) CVA (cerebral vascular accident) (6) Diabetes mellitus, type II (7) Diabetic foot ulcer (8) Diabetic peripheral neuropathy associated with type 2 diabetes mellitus (9) Foot deformity (10) Gastroparesis (11) GERD (gastroesophageal reflux disease) (12) History of coronary artery disease (13) Hyperlipidemia (14) Hypertension (15) Loss of sensation (16) Pulmonary embolism Surgical Problems: (1) H/O heart artery stent (2) History of appendectomy (3) History of total left hip arthroplasty (4) Hx of removal of ovary Family History FHx: heart disease Social History Smoking Status: Former Smoker Alcohol Use: none Drug Use: none Marital Status: Housing Status: lives alone Occupation Status: retired Current/Historical Medications Scheduled Beclomethasone Dip (Qvar), 1 PUFF INH BID Calcitriol (Rocaltrol), 1 MCG PO DAILY Cephalexin Monohydrate (Keflex), 500 MG PO TID Clotrimazole (Topical) (Lotrimin Af), 1 APPLN TOP BID Cranberry (Vaccinium Macrocarp (Cranberry), 400 MG PO BID Diltiazem Hcl Coated Beads (Cardizem Cd), 120 MG PO DAILY Ferrous Sulfate (Ferrous Sulfate), 325 MG PO DAILY Furosemide (Lasix), 80 MG PO BID Insulin Glargine (Lantus), 25 UNITS SQ QAM Insulin Glargine (Lantus), 11 UNITS SQ EVENING MEAL Isosorbide Mononitrate (Isosorbide Mononitrate ER), 60 MG PO DAILY Losartan Potassium (Cozaar), 50 MG PO DAILY Lovastatin (Mevacor), 40 MG PO BID Metoprolol Succinate (Metoprolol Succinate ER), 12.5 MG PO DAILY Omeprazole (Omeprazole), 20 MG PO DAILY Solifenacin (Vesicare), 5 MG PO DAILY Warfarin Sod (Jantoven), 4 MG PO UD Scheduled PRN Levalbuterol Hcl (Levalbuterol Hcl), 3 ML INH Q4 PRN for SOB/Wheezing Nitroglycerin (Nitrostat), 0.4 MG UT PRN PRN for Chest Pain Miscellaneous Medications Insulin Aspart (Novolog) Allergies Coded Allergies: Acetaminophen (Verified Allergy, Unknown, UNKNOWN, 01/06/17) INFO FROM PT Codeine (Verified Allergy, Unknown, UNKNOWN, 01/06/17) INFO FROM PT Aspirin (Verified Adverse Reaction, Intermediate, (ULCER), 01/06/17) Venlafaxine (Verified Adverse Reaction, Intermediate, DROWINESS/ CONFUSION , 01/06/17) Cephalexin (Verified Adverse Reaction, Mild, DROWSINESS, UNABLE TO DRIVE, UPSET STOMACH, 01/06/17) Oxycodone (Verified Adverse Reaction, Mild, n/v, 01/06/17) gmg Physical Exam Vital Signs Date Time Temp Pulse Resp B/P Pulse Ox O2 Delivery O2 Flow Rate FiO2 01/06/17 18:20 74 16 136/74 96 01/06/17 16:31 70 16 170/64 95 Room Air 01/06/17 14:55 36.3 78 20 158/71 96 Room Air Physical Exam Constitutional: Vital signs reviewed. Eyes: Pupils are equal round reactive to light. Conjunctiva are noninjected. ENT: Pharynx is clear without erythema or exudate. Mucous membranes are moist. Neck supple without meningeal signs. Respiratory: Clear to auscultation bilaterally. Breath sounds are equal bilaterally. Cardiovascular: Regular rate and rhythm. No rubs or gallops. GI: Soft, nondistended and nontender. Bowel sounds are present. Musculoskeletal: No peripheral edema. No lower extremity tenderness. Integumentary: Erythema to the crease of the left groin, not extending over the genitalia, no crepitus, there are satellite lesions. No tenderness. Neurological: The patient is awake and alert. No focal deficits. Psychiatric: Normal affect. Medical Decision & Procedures Laboratory Results 01/06/17 16:05 Red Blood Count 3.64, Mean Corpuscular Volume 92.6, Mean Corpuscular Hemoglobin 30.2, Mean Corpuscular Hemoglobin Concent 32.6, Mean Platelet Volume 9.9, Neutrophils (%) (Auto) 63.5, Lymphocytes (%) (Auto) 25.7, Monocytes (%) (Auto) 8.9, Eosinophils (%) (Auto) 1.5, Basophils (%) (Auto) 0.2, Neutrophils # (Auto) 2.92, Lymphocytes # (Auto) 1.18, Monocytes # (Auto) 0.41, Eosinophils # (Auto) 0.07, Basophils # (Auto) 0.01 01/06/17 16:05 Test 01/06/17 16:05 White Blood Count 4.60 K/uL (4.8-10.8) Red Blood Count 3.64 M/uL (4.2-5.4) Hemoglobin 11.0 g/dL (12.0-16.0) Hematocrit 33.7 % (37-47) Mean Corpuscular Volume 92.6 fL (80-100) Mean Corpuscular Hemoglobin 30.2 pg (25-34) Mean Corpuscular Hemoglobin Concent 32.6 g/dl (32-36) Platelet Count 106 K/uL (130-400) Mean Platelet Volume 9.9 fL (7.4-10.4) Neutrophils (%) (Auto) 63.5 % Lymphocytes (%) (Auto) 25.7 % Monocytes (%) (Auto) 8.9 % Eosinophils (%) (Auto) 1.5 % Basophils (%) (Auto) 0.2 % Neutrophils # (Auto) 2.92 K/uL (1.4-6.5) Lymphocytes # (Auto) 1.18 K/uL (1.2-3.4) Monocytes # (Auto) 0.41 K/uL (0.11-0.59) Eosinophils # (Auto) 0.07 K/uL (0-0.5) Basophils # (Auto) 0.01 K/uL (0-0.2) RDW Standard Deviation 45.5 fL (36.4-46.3) RDW Coefficient of Variation 13.5 % (11.5-14.5) Immature Granulocyte % (Auto) 0.2 % Immature Granulocyte # (Auto) 0.01 K/uL (0.00-0.02) Anion Gap 6.0 mmol/L (3-11) Est Creatinine Clear Calc Drug Dose 33.7 ml/min Estimated GFR () 32.9 Estimated GFR (Non- 28.4 BUN/Creatinine Ratio 12.1 (10-20) Calcium Level 9.4 mg/dl (8.5-10.1) Total Bilirubin 0.5 mg/dl (0.2-1) Direct Bilirubin 0.1 mg/dl (0-0.2) Aspartate Amino Transf (AST/SGOT) 11 U/L (15-37) Alanine Aminotransferase (ALT/SGPT) 18 U/L (12-78) Alkaline Phosphatase 123 U/L (45-117) Total Protein 6.6 gm/dl (6.4-8.2) Albumin 3.4 gm/dl (3.4-5.0) Laboratory results as reviewed by me. Medications Administered Medications (Trade) Dose Ordered Sig/Rose Route Start Time Stop Time Status Last Admin Dose Admin Fluconazole (Diflucan Tab) 200 mg NOW ONCE PO 01/06/17 16:00 01/06/17 16:01 DC 01/06/17 16:30 200 MG Cefazolin Sodium (Ancef 1000mg/55 ml D5W) 1,000 mg NOW STAT IV 01/06/17 16:49 01/06/17 16:50 DC 01/06/17 17:34 1,000 MG ED Course 1534: The patient was evaluated in room C4. A complete history and physical exam was performed. 1600: Fluconazole 200mg PO. 1649: Cefazolin Sodium 1000mg IV. 1656: I spoke to Dr. Aj and he agrees with the plan and disposition. He will follow up with her tomorrow. 1703: I talked to the patient about the treatment plan and she is in agreement. 1709: Upon reevaluation, the patient appeared to have improvement of her symptoms. I discussed tonight's findings with the patient. She verbalized agreement of the treatment plan. The patient was discharged home. Medical Decision This is a 76-year-old female who presents with an infection to her groin. Differential diagnosis includes javon, intertrigo, cellulitis, necrotizing fasciitis, Kenji's gangrene had. I did perform a limited focused review of portions of the patient's old chart on the electronic medical record. The patient was admitted in August for a GI bleed, anemia, and kidney injury. I did evaluate the patient as noted above. On examination the patient does not appear to have significant cellulitis. She has an obvious candidal infection to her groin with satellite lesions. There is no evidence of Kenji's gangrene. There is no crepitus. She does not have pain to that area on the left she walks. IV access was established. I did order and review the patient' s blood work as noted in the electronic medical record. Her white count is 4.6. She does not have a left shift. Her creatinine is 1.7 which is baseline for her. I did discuss the test results with the patient. I did obtain records from [facility].. The physician nursing home assistant administrator who saw her today was concerned that she had mostly cellulitis and sent her here for IV antibiotics. I disagree with this assessment. I advised her that this is likely only fungal in nature with possibility of a bacterial superimposed infection. I did go ahead and treat her with an initial dose of fluconazole 200 mg. She will not be placed on oral fluconazole at home because of her renal function and interaction with her statins. She was also given Ancef IV here. She was discharged with a prescription for Lotrimin 1% cream for 21 days and Keflex. The patient was discussed with Dr. Hoskins who was on-call for Dr. Waterman. He stated that the office would call her tomorrow for reassessment. Consults Time Called: 1649 Consulting Physician: Dr. Aj Returned Call: [address] Aj and he agrees with the plan and disposition. He will follow up with her tomorrow. Impression Primary Impression: Candidal intertrigo Scribe Attestation The scribe's documentation has been prepared under my direct and personally reviewed by me in its entirety. I confirm that the note above accurately reflects all work, treatment, procedures, and medical decision making performed by me. Departure Information Dispostion Home / Self-Care Prescriptions Clotrimazole (Topical) (LOTRIMIN AF) 1 % Cre 1 APPLN TOP BID for 21 Days, #48 GM 1 Refill Prov: Soren Romero M.D. 01/06/17 Cephalexin Monohydrate (Keflex) 500 Mg Cap 500 MG PO TID, #30 CAP Prov: Soren Romero M.D. 01/06/17 Referrals Kerry Waterman D.O. (PCP) Forms HOME CARE DOCUMENTATION FORM, IMPORTANT VISIT INFORMATION, WORK / SCHOOL INSTRUCTIONS Patient Instructions ED Candidiasis Cutaneous, My [facility] Additional Instructions You have been examined and treated today on an emergency basis only. This is not a substitute for, or an effort to provide, complete comprehensive medical care. It is impossible to recognize and treat all injuries or illnesses in a single emergency department visit. It is therefore important that you follow up closely with your physician within 48 hours. Call as soon as possible for an appointment. Return for worsening symptoms or if you develop fever, vomiting, body aches, spread of the rash or any other concerning symptoms.
[2017-02-13] MEDS ORDERED: LVQ750 PO (16:14)
[2017-02-13] MEDS ORDERED: LCTX PO (16:14)
[2017-03-18] MEDS ORDERED: DXY100 PO (15:02)
[2017-03-18] MEDS ORDERED: BENZ100C7 PO (15:02)
[2017-03-18] MEDS ORDERED: FURO80TA63 PO (15:02)
[2017-03-18] MEDS ORDERED: FURO40TA3 PO (15:18)
[2017-03-26] MEDS ORDERED: LCTX PO (12:48)
[2017-03-26] MEDS ORDERED: LVQ750 PO (12:48)
== END 2017-01-06 18:22 | disposition home or self-care (01) ==
LOC: C.EDB 14:48 → C.EDC 18:22
DX: B37.2 Candidiasis of skin and nail (principal); L30.4 Erythema intertrigo; E11.9 Type 2 diabetes mellitus without complications; J45.909 Unspecified asthma, uncomplicated; N18.9 Chronic kidney disease, unspecified; E11.40 Type 2 diabetes mellitus with diabetic neuropathy, unspecified; K21.9 Gastro-esophageal reflux disease without esophagitis; E78.5 Hyperlipidemia, unspecified; Z86.711 Personal history of pulmonary embolism; Z82.49 Family history of ischemic heart disease and other diseases of the circulatory system; Z87.891 Personal history of nicotine dependence; Z79.01 Long term (current) use of anticoagulants; Z79.4 Long term (current) use of insulin; Z79.899 Other long term (current) drug therapy

== ENCOUNTER 2017-02-09 08:03 | Observation (INO) | payer OTHER ==
[~2017-02-09] VITALS: Ht 165.1 cm; Wt 107.5 kg
[2017-02-09] VITALS (7 sets, daily range): BP systolic 127–167; BP diastolic 69–75; PULSE 72–88; TEMP 36.3–36.8; O2SAT 96–99; BMI 40.8
[~2017-02-09 08:03] MED LIST changes: -CALC0.2510 PO; +CALC0.5C2 PO; +CEPH500C PO; +CLOT-40 TOP; -CYAN500T PO; -FERR1TAB62 PO; +FERR325T5 PO; +IMDSR60 PO; -ISOS30TA3 PO; +NVLG; -NVLGI SC; -UMEC1AER INH; +WARF4TAB8 PO
[2017-02-09] MEDS ORDERED: WARF2TAB PO (08:26)
[2017-02-09] MEDS ORDERED: DILT120C PO (08:26)
[2017-02-09] MEDS ORDERED: LOSA100T65 PO ×2 (08:26→13:03)
[2017-02-09] MEDS ORDERED: GLUC-338 PO (08:27)
[2017-02-09] MEDS ORDERED: OXGN (08:27)
[2017-02-09] MEDS ORDERED: ALBUT/IPRATROP 3MG/0.5MG NEB 3 ML VIAL INH STA (08:30)
--- NOTE | 2017-02-09 08:30 | EMERGENCY ROOM VISIT NOTE ---
History First contact with patient: 08:12 Chief Complaint: RESPIRATORY PROBLEMS Stated Complaint: BREATHING DIFFICULTY Nursing Triage Summary: pt states she woke up this morning with shortness of breath. pt does wear oxygen at night. patient breathing rapidly at time of arrival. patient was given albuterol treatment in route. History of Present Illness The patient is a 76 year old female with diabetes, emphysema, hyperlipidemia, CKD and previous DC, PE, diverticular bleed in August and CVA who presents to the Emergency Room with complaints of sudden onset shortness of breath and left sided chest pain that woke her up this morning with associated diaphoresis and chills. Shortness of breath "feels like her previous pneumonia" worse on lying flat. Associated coughing (started a few days ago but much worse this morning) through the night, "feels it on the left side", productive of yellow sputum. She has been having intermittent mild aching chest discomfort for the last few weeks on the right side of her chest which she reports going to the doctor about and being told it was fine. This morning however she woke up with left sided chest pain, aching, no radiation, severity 8/10 (currently 0/10), worse on inspiration, does not change with palpation. She denies any nausea. She arrived by EMS and had albuterol which did not help. She also has left calf pain. She denies any change in her weight recently or increase in her leg swelling. No palpitations or claudication. Review of Systems See HPI for pertinent positives & negatives. A total of 10 systems reviewed and were otherwise negative. Past Medical/Surgical History Medical Problems: (1) Asthma (2) C. difficile colitis (3) Chest pain (4) Chronic kidney disease (5) COPD (chronic obstructive pulmonary disease) (6) CVA (cerebral vascular accident) (7) Diabetes mellitus, type II (8) Diabetic foot ulcer (9) Diabetic peripheral neuropathy associated with type 2 diabetes mellitus (10) Foot deformity (11) Gastroparesis (12) GERD (gastroesophageal reflux disease) (13) History of coronary artery disease (14) Hyperlipidemia (15) Hypertension (16) Loss of sensation (17) Pulmonary embolism Surgical Problems: (1) H/O heart artery stent (2) History of appendectomy (3) History of total left hip arthroplasty (4) Hx of removal of ovary Family History FHx: heart disease Social History Smoking Status: Never Smoker Alcohol Use: none Drug Use: none Marital Status: Housing Status: lives alone Occupation Status: retired Current/Historical Medications Scheduled Beclomethasone Dipropionate (N ([facility]), 1 PUFF INH BID Calcitriol (Rocaltrol), 0.5 MCG PO DAILY Diltiazem Hcl Coated Beads (Diltiazem Hcl Er), 120 MG PO DAILY Ferrous Sulfate (Ferrous Sulfate), 325 MG PO DAILY Furosemide (Lasix), 80 MG PO BID Home O2 Therapy (Oxygen), LITERS NA QPM Insulin Glargine (Lantus), 25 UNITS SQ QAM Insulin Glargine (Lantus), 11 UNITS SQ EVENING MEAL Isosorbide Mononitrate (Isosorbide Mononitrate ER), 60 MG PO DAILY Losartan Potassium (Cozaar), 0.5 MG PO DAILY Lovastatin (Mevacor), 80 MG PO HS Metoprolol Succinate (Metoprolol Succinate ER), 12.5 MG PO DAILY Omeprazole (Omeprazole), 20 MG PO DAILY Solifenacin (Vesicare), 5 MG PO DAILY Umeclidinium-Vilanterol (Anoro Ellipta 62.5-25 Mcg/INH), 1 PUFF INH DAILY Warfarin Sod (Jantoven), 4 MG PO 5XWK Warfarin Sodium (Coumadin), 1 TAB PO 2XWK Scheduled PRN Glucose-Vitamin C (Glucose), 1 TAB PO UD PRN for LOW SUGAR Levalbuterol Hcl (Levalbuterol Hcl), 3 ML INH Q4 PRN for SOB/Wheezing Nitroglycerin (Nitrostat), 0.4 MG UT PRN PRN for Chest Pain Miscellaneous Medications Insulin Aspart (Novolog) Allergies Coded Allergies: Acetaminophen (Verified Allergy, Unknown, UNKNOWN, 01/06/17) INFO FROM PT Codeine (Verified Allergy, Unknown, UNKNOWN, 01/06/17) INFO FROM PT Aspirin (Verified Adverse Reaction, Intermediate, (ULCER), 01/06/17) Venlafaxine (Verified Adverse Reaction, Intermediate, DROWINESS/ CONFUSION , 01/06/17) Cephalexin (Verified Adverse Reaction, Mild, DROWSINESS, UNABLE TO DRIVE, UPSET STOMACH, 01/06/17) Oxycodone (Verified Adverse Reaction, Mild, n/v, 01/06/17) gmg Physical Exam Vital Signs Date Time Temp Pulse Resp B/P (MAP) Pulse Ox O2 Delivery O2 Flow Rate FiO2 02/09/17 09:40 80 22 167/54 100 Nasal Cannula 2.0 02/09/17 08:45 72 24 197/66 99 Room Air 02/09/17 08:45 100 Nasal Cannula 2.0 02/09/17 08:11 72 02/09/17 08:10 99 Room Air 02/09/17 08:10 36.7 81 24 162/116 99 Room Air 02/09/17 08:10 99 Room Air Physical Exam VITAL SIGNS: were reviewed as above GENERAL: moderate acute respiratory distress with increased rate SKIN: Warm dry and pink, no rashes HEAD: Normocephalic and atraumatic EYES: extraocular muscles intact, pupils equal OROPHARYNX: non erythematous, clear and moist NECK: Supple, large neck circumference, no adenopathy or meningismus LUNGS: Increased rate, clear to auscultation, no accessory muscle use HEART: Regular rate and rhythm, heart sounds 1+2, no murmurs ABDOMEN: Soft and nontender, bowel sounds normal EXTREMITIES: Warm and well perfused, no calf tenderness/swelling, no pedal edema. NEUROLOGICALLY: Awake alert and oriented without focal deficit. Cranial nerves 2 -12 intact. Cerebellar testing is within normal limits. There is no nystagmus. There is no facial droop. Speech is clear. Vision is grossly normal. MUSCULOSKELETAL: Good muscle tone. No evidence of trauma Medical Decision & Procedures ER Provider Diagnostic Interpretation: CHEST ONE VIEW PORTABLE CLINICAL HISTORY: shortness of breath dyspnea COMPARISON STUDY: 09/12/2016 FINDINGS: Lungs are clear. Mild stable cardiomegaly. Diaphragms are smooth. IMPRESSION: Mild stable cardiomegaly. Otherwise negative study Electronically signed by: Jaleel Xie M.D. 02/09/2017 8:33 AM Dictated Date/Time: 02/09/2017 8:31 AM Laboratory Results Test 02/09/17 08:20 02/09/17 08:26 Immature Granulocyte % (Auto) 0.3 % White Blood Count 3.60 K/uL (4.8-10.8) Red Blood Count 3.64 M/uL (4.2-5.4) Hemoglobin 10.6 g/dL (12.0-16.0) Hematocrit 32.9 % (37-47) Mean Corpuscular Volume 90.4 fL (80-100) Mean Corpuscular Hemoglobin 29.1 pg (25-34) Mean Corpuscular Hemoglobin Concent 32.2 g/dl (32-36) Platelet Count 91 K/uL (130-400) Mean Platelet Volume 9.6 fL (7.4-10.4) Neutrophils (%) (Auto) 43.3 % Lymphocytes (%) (Auto) 44.7 % Monocytes (%) (Auto) 9.2 % Eosinophils (%) (Auto) 2.2 % Basophils (%) (Auto) 0.3 % Neutrophils # (Auto) 1.56 K/uL (1.4-6.5) Lymphocytes # (Auto) 1.61 K/uL (1.2-3.4) Monocytes # (Auto) 0.33 K/uL (0.11-0.59) Eosinophils # (Auto) 0.08 K/uL (0-0.5) Basophils # (Auto) 0.01 K/uL (0-0.2) Immature Granulocyte # (Auto) 0.01 K/uL (0.00-0.02) Platelet Estimate DECREASED Prothrombin Time 18.3 SECONDS (9.0-12.0) Prothromb Time International Ratio 1.7 (0.9-1.1) Activated Partial Thromboplast Time 30.7 SECONDS (21.0-31.0) Partial Thromboplastin Ratio 1.2 D-Dimer 320 ug/L FEU (0-500) Total Bilirubin 0.6 mg/dl (0.2-1) Aspartate Amino Transf (AST/SGOT) 15 U/L (15-37) Alanine Aminotransferase (ALT/SGPT) 16 U/L (12-78) Alkaline Phosphatase 105 U/L (45-117) Total Protein 6.4 gm/dl (6.4-8.2) Albumin 3.2 gm/dl (3.4-5.0) Globulin 3.2 gm/dl (2.5-4.0) Albumin/Globulin Ratio 1.0 (0.9-2) Bedside Troponin I < 0.030 ng/ml (0-0.045) Medications Administered Medications (Trade) Dose Ordered Sig/Rose Route Start Time Stop Time Status Last Admin Dose Admin Albuterol/ Ipratropium (Duoneb) 3 ml ONE STAT INH 02/09/17 08:30 02/09/17 08:31 DC 02/09/17 08:37 3 ML Aspirin (Aspirin Chew) 324 mg NOW STAT PO 02/09/17 08:46 02/09/17 08:48 DC 02/09/17 08:51 324 MG Nitroglycerin (Nitrostat Tab) 0.4 mg NOW STAT SL 02/09/17 08:46 02/09/17 08:48 DC 02/09/17 08:51 0.4 MG ECG Indication: chest pain Rate (beats per minute): 67 Rhythm: normal sinus Findings: no acute ischemic change ED Course 8:06am Complete history and physical performed 8:23am Discussed case with Dr Campbell who separately performed history and physical 8:40am Re-assessed. Patient reports that chest pain is different from her pain she has been having for the last few weeks and feels like her previous heart attack on the left side (previous to this she has changed her story multiple times and even told EMS she did not have any pain). Given this ASA and Nitroglycerin was ordered at this time. [facility] who accepted the patient for evaluation. Medical Decision Prior records/ancillary studies reviewed. Triage Nursing notes reviewed. Additional history obtained from the family. The patient's history was concerning for respiratory difficulties. Differential diagnosis: Etiologies such as infections, reactive airway disease, pneumonia, pneumothorax , COPD, CHF, cardiac ischemia, pulmonary embolism, musculoskeletal, gastrointestinal, as well as others were entertained. Physical examination: As above. ER treatment provided: Due to concern for cardiac ischemic aspirin was given despite recent diverticular bleed noted as Hgb drop previously was not large benefits if cardiac ischemia are potentially high. Aspirin 324mg, Nitroglycerin 0.4mg SL, Duoneb On reassessment the patient felt better. Diagnostic interpretation by me: The electrocardiogram was negative for acute ischemic or pathologic change. The labs showed mild anemia, leukopenia and thrombocytopenia. Negative d-dimer and troponin. Imaging studies: Chest x-ray as above. Consultation: A consultation was placed with the [facility] hospitalist. The case was discussed and diagnostics were reviewed. The patient was evaluated in the ER for further treatment. This appears to be consistent with emphysema vs atypical chest pain vs. acute anxiety. By the evaluation outlined above emergent etiologies such as CHF, pulmonary embolism, reactive airway disease, pneumonia, pneumothorax, musculoskeletal, serious bacterial infections, as well as others were deemed relatively unlikely. The [] informed about the findings as listed above. All questions were answered and [] pleased with the treatment. Return instructions were outlined and the patient was discharged in stable condition. Outpatient prescription management: [] Referral: The patient was referred back to their primary care physician for follow-up in 2 to 3 days for a recheck of the current condition. Impression Primary Impression: Atypical chest pain Additional Impressions: Anxiety attack COPD (chronic obstructive pulmonary disease) Departure Information Dispostion Being Evaluated By Hospitalist Referrals Kerry Waterman D.O. (PCP) Patient Instructions My [facility] Resident Tracking Resident Involvement: Resident Care Provided Care Provided: Adult ED Problem Qualifiers
--- NOTE | 2017-02-09 08:34 | DIAGNOSTIC IMAGING REPORT ---
CHEST ONE VIEW PORTABLE CLINICAL HISTORY: shortness of breath dyspnea COMPARISON STUDY: 09/12/2016 FINDINGS: Lungs are clear. Mild stable cardiomegaly. Diaphragms are smooth. IMPRESSION: Mild stable cardiomegaly. Otherwise negative study Electronically signed by: Jaleel Xie M.D. 02/09/2017 8:33 AM Dictated Date/Time: 02/09/2017 8:31 AM
--- NOTE | 2017-02-09 08:34 | EMERGENCY ROOM VISIT NOTE ---
ED Visit Note First contact with patient: 08:12 Resident Physician Supervision Note: I interviewed and examined the patient. Discussed with Dr. Iglesias and agree with findings and plan as documented in the note. Documented By: Pratik Campbell Problem List Medical Problems: (1) Asthma Status: Chronic (2) C. difficile colitis Status: Resolved (3) Chronic kidney disease Status: Chronic (4) COPD (chronic obstructive pulmonary disease) Status: Chronic (5) CVA (cerebral vascular accident) Status: Chronic (6) Diabetes mellitus, type II Status: Chronic (7) Diabetic peripheral neuropathy associated with type 2 diabetes mellitus Status: Chronic (8) Gastroparesis Status: Chronic (9) GERD (gastroesophageal reflux disease) Status: Chronic (10) History of coronary artery disease Status: Chronic (11) Hyperlipidemia Status: Chronic (12) Hypertension Status: Chronic (13) Pulmonary embolism Status: Chronic Surgical Problems: (1) H/O heart artery stent Permanent Comment: PTCA LAD 9/00 [facility] (AVE Stent) Status: Resolved (2) History of appendectomy Status: Resolved (3) History of total left hip arthroplasty Status: Resolved (4) Hx of removal of ovary Permanent Comment: R side Status: Resolved Current/Historical Medications Scheduled Calcitriol (Rocaltrol), 0.5 MCG PO DAILY Diltiazem Hcl Coated Beads (Diltiazem Hcl Er), 120 MG PO DAILY Ferrous Sulfate (Ferrous Sulfate), 325 MG PO DAILY Furosemide (Lasix), 80 MG PO BID Home O2 Therapy (Oxygen), LITERS NA QPM Insulin Glargine (Lantus), 25 UNITS SQ QAM Insulin Glargine (Lantus), 11 UNITS SQ EVENING MEAL Isosorbide Mononitrate (Isosorbide Mononitrate ER), 60 MG PO DAILY Losartan Potassium (Cozaar), 100 MG PO DAILY Lovastatin (Mevacor), 80 MG PO HS Metoprolol Succinate (Metoprolol Succinate ER), 12.5 MG PO DAILY Omeprazole (Omeprazole), 20 MG PO DAILY Solifenacin (Vesicare), 5 MG PO DAILY Warfarin Sod (Jantoven), 4 MG PO 5XWK Warfarin Sodium (Coumadin), 1 TAB PO 2XWK Scheduled PRN Glucose-Vitamin C (Glucose), 1 TAB PO UD PRN for LOW SUGAR Levalbuterol Hcl (Levalbuterol Hcl), 3 ML INH Q4 PRN for SOB/Wheezing Nitroglycerin (Nitrostat), 0.4 MG UT PRN PRN for Chest Pain Miscellaneous Medications Insulin Aspart (Novolog) Allergies Coded Allergies: Acetaminophen (Verified Allergy, Unknown, UNKNOWN, 01/06/17) INFO FROM PT Codeine (Verified Allergy, Unknown, UNKNOWN, 01/06/17) INFO FROM PT Aspirin (Verified Adverse Reaction, Intermediate, (ULCER), 01/06/17) Venlafaxine (Verified Adverse Reaction, Intermediate, DROWINESS/ CONFUSION , 01/06/17) Cephalexin (Verified Adverse Reaction, Mild, DROWSINESS, UNABLE TO DRIVE, UPSET STOMACH, 01/06/17) Oxycodone (Verified Adverse Reaction, Mild, n/v, 01/06/17) gmg Vital Signs Date Time Temp Pulse Resp B/P (MAP) Pulse Ox O2 Delivery O2 Flow Rate FiO2 02/09/17 08:11 72 02/09/17 08:10 99 Room Air 02/09/17 08:10 36.7 81 24 162/116 99 Room Air 02/09/17 08:10 99 Room Air Laboratory Results Test 02/09/17 08:20 02/09/17 08:32 Departure Information Referrals Kerry Waterman D.O. (PCP) Patient Instructions [facility]
[2017-02-09 08:35] LABS: HEMATOCRIT 32.9 % (37-47); MEAN CELL VOLUME 90.4 fL (80-100); MEAN CORPUSCULAR HEMOGLOBIN 29.1 pg (25-34); MEAN CORPUSCULAR HGB CONC 32.2 g/dl (32-36); RED BLOOD COUNT 3.64 M/uL (4.2-5.4)
[2017-02-09 08:46] LABS: MEAN PLATELET VOLUME 9.6 fL (7.4-10.4); PLATELET COUNT 91 K/uL (130-400)
[2017-02-09] MEDS ORDERED: ASPIRIN 324 MG CHEW PO STA (08:46)
[2017-02-09] MEDS ORDERED: NITROGLYCERIN 0.4 MG SL PER TAB CHARGE SL STA (08:46)
[2017-02-09 08:53] LABS: ALT/SGPT 16 U/L (12-78); AST/SGOT 15 U/L (15-37); BLOOD UREA NITROGEN 31 mg/dl (7-18); BUN/CREATININE RATIO 16.5 (10-20); CARBON DIOXIDE 27 mmol/L (21-32); CHLORIDE 104 mmol/L (98-107); GLUCOSE 137 mg/dl (70-99); POTASSIUM 3.5 mmol/L (3.5-5.1); SODIUM 143 mmol/L (136-145)
[2017-02-09 08:56] LABS: INR 1.7 (0.9-1.1); PARTIAL THROMBOPLASTIN RATIO 1.2; PROTHROMBIN TIME (PATIENT) 18.3 SECONDS (9.0-12.0)
[2017-02-09 08:57] LABS: ALKALINE PHOSPHATASE 105 U/L (45-117)
[2017-02-09 09:00] LABS: CALCIUM 9.3 mg/dl (8.5-10.1)
[2017-02-09 09:34] LABS: BASO % 0.3 %; BASO ABS # 0.01 K/uL (0-0.2); COMPLETE YES; EOS % 2.2 %; IG% 0.3 %; LYMPH % 44.7 %; LYMPH ABS # 1.61 K/uL (1.2-3.4); MONO % 9.2 %; NEUT % 43.3 %; PLT ESTIMATE DECREASED
[2017-02-09] MEDS ORDERED: IV FLUIDS COMPLETED PRN ×2 (10:00→20:30)
[2017-02-09] MEDS ORDERED: ALBUT/IPRATROP 3MG/0.5MG NEB 3 ML VIAL INH SCH (12:00)
[2017-02-09] MEDS ORDERED: GLUCOSE 10 TABS/TUBE PO PRN (13:15)
[2017-02-09] MEDS ORDERED: GLUCAGON FOR INJ 1 MG VIAL SQ PRN (13:15)
[2017-02-09] MEDS ORDERED: DEXTROSE 50% 50 ML SYR IV PRN (13:15)
[2017-02-09] MEDS ORDERED: GLUCOSE 40% GEL 15 GM TUBE PO PRN (13:15)
[2017-02-09] MEDS ORDERED: UMEC1AER INH (13:27)
[2017-02-09] MEDS ORDERED: [UNRECOGNIZED DRUG - CODE] INH (13:27)
[2017-02-09] MEDS ORDERED: PHARMACY GLYCEMIC MGMT CONSULT PRN (13:28)
--- NOTE | 2017-02-09 14:20 | Pharmacy Progress Note ---
Glycemic Control Intl Consult Date of Service Feb 09, 2017. Scope Glycemic Pharmacist consulted for glycemic control and to write orders per [facility] inpatient glycemic control protocol Objective Weight (Kilograms): 111.300 Accuchecks BSG (last 24hrs): Test 02/09/17 08:20 02/09/17 11:43 Random Glucose 137 mg/dl (70-99) Bedside Glucose 192 mg/dl (70-90) HbA1c 6.7% on 09/08/16 Recent Pertinent Medications Outpatient Anti-diabetic Regimen: * Lantus 25 units in AM + 11 units in PM * NovoLog 2-8 units ACHS PRN The patient is currently receiving: * Basal insulin: Lantus 25 units in AM + Lantus 11 units in PM * Correctional Insulin: Novolog Correction per scale ACHS Goal Range: Low 140 mg/dL - High 180 mg/dL Correction Factor: 55 mg/dL/unit * Prandial insulin: Per carb ratio of 1 unit per 19 grams CHO consumed Assessment & Plan ASSESSMENT: * 77yo T2DM female with excellent glycemic control per recent A1c from 08/2016. However, this value is > 90 days therefore will re-order. * Pt is maintained on SQ basal bolus insulin regimen as an outpatient - but outpatient regimen is heavily weighted towards basal insulin {most likely basal insulin is covering some prandial needs} * Will re-distribute regimen based on previous admissions to a more 50%:50% distribution for inpatient use. * Equal distribution preferred for inpatient use to prevent hypo when PO intake changes * Per previous admissions, total daily dose of ~ 605units/day yielded near adequate control * ADA & AACE recommend a goal blood sugar range 140-180 mg/dl for the majority of critically ill & non-critically ill patients. However, more stringent targets may be selected in individual cases. Will utilize more stringent goal of 110-140mg/dl based on patient age, comorbidities, and tight glycemic control at baseline. PLAN FOR INPATIENT GLYCEMIC CONTROL: * Basal insulin * Change to Lantus 18 units SQ BID * Bolus insulin * NovoLog per scale ACHS or Q6hrs while NPO * Goal Range: Low 110 mg/dL - High 140 mg/dL * Correction Factor: 20 mg/dL/unit * Nutritional / Prandial insulin per carb ratio of 1 unit per 7 grams CHO consumed * Order A1c with AM labs * Add to d/c instructions to be communicated to PCP for further outpatient regimen adjustments * Please note that the plan above was derived based on current level of insulin resistance and hospital stress. These recommendations are appropriate for inpatient admission only. Plan of care upon discharge will need to be reassessed to avoid potential outpatient hypo/hyperglycemia. Thank you.
[2017-02-09] MEDS: BENZONATATE 100MG CAP PO SCH ×2 (14:38→19:45)
[2017-02-09] MEDS: ALBUT/IPRATROP 3MG/0.5MG NEB 3 ML VIAL INH SCH ×2 (15:32→19:14)
--- NOTE | 2017-02-09 16:33 | History and Physical ---
History & Physical Date & Time of Service: Feb 09, 2017 at 12:34 Chief Complaint: Chest Pain Primary Care Physician: Kerry Waterman D.O. History of Present Illness Source: patient, clinic records, hospital records 76 year old female with PMH of diabetes, COD hyperlipidemia, CKD satge 3, HTN, P. AFIB, Obesity, Diastolic dysfunction, presents to the Emergency Room with complaints of Left sided chest pain associated with shortness of breath. Pt said that she has been coughing a lot for the last 2 days. She said that this morning she woke up with chest pain that is worsening with coughing. She said that the cough is associated with whitish thick sputum. Pt said that the pain is non radiating, reproducible with pressure, grade 8/10. She said that it is more like an achy chest discomfort. Pt said that her SOB worst when she is lying flat down. She also said that in the last few days she has been having SOB on exertion. She also complaint of LLE tenderness. She recently saw her cardiology Dr. Do on 02/02/17 for intermittent mid sternal and right sided chest pain. Dr. Do said that the pain was non cardiac etiology. She had an ECHO done on 01/21/17 that showed normal wall motion. Currently she denies any chest pain. she said that she is coughing less now. Pt said that her chest pain was better before she was given the nitro. Denies any palpitation, dizziness, fever, weakness. Past Medical/Surgical History Medical Problems: (1) Asthma Status: Chronic (2) C. difficile colitis Status: Resolved (3) Chronic kidney disease Status: Chronic (4) COPD (chronic obstructive pulmonary disease) Status: Chronic (5) CVA (cerebral vascular accident) Status: Chronic (6) Diabetes mellitus, type II Status: Chronic (7) Diabetic peripheral neuropathy associated with type 2 diabetes mellitus Status: Chronic (8) Gastroparesis Status: Chronic (9) GERD (gastroesophageal reflux disease) Status: Chronic (10) History of coronary artery disease Status: Chronic (11) Hyperlipidemia Status: Chronic (12) Hypertension Status: Chronic (13) Pulmonary embolism Status: Chronic Surgical Problems: (1) H/O heart artery stent Permanent Comment: [facility] (AVE Stent) Status: Resolved (2) History of appendectomy Status: Resolved (3) History of total left hip arthroplasty Status: Resolved (4) Hx of removal of ovary Permanent Comment: R side Status: Resolved Family History FHx: heart disease Social History Smoking Status: Never Smoker Alcohol Use: none Drug Use: none Marital Status: Housing status: lives alone Occupational Status: retired Immunizations History of Influenza Vaccine: N/A Influenza Vaccine Date: May 06, 2013 History of Tetanus Vaccine?: utd History of Pneumococcal: Yes Pneumococcal Date: January 02, 2003 History of Hepatitis B Vaccine: No Multi-Drug Resistant Organisms History of MDRO: No Allergies Coded Allergies: Acetaminophen (Verified Allergy, Unknown, UNKNOWN, 01/06/17) INFO FROM PT Codeine (Verified Allergy, Unknown, UNKNOWN, 01/06/17) INFO FROM PT Aspirin (Verified Adverse Reaction, Intermediate, (ULCER), 01/06/17) Venlafaxine (Verified Adverse Reaction, Intermediate, DROWINESS/ CONFUSION , 01/06/17) Cephalexin (Verified Adverse Reaction, Mild, DROWSINESS, UNABLE TO DRIVE, UPSET STOMACH, 01/06/17) Oxycodone (Verified Adverse Reaction, Mild, n/v, 01/06/17) gmg Home Medications Scheduled Beclomethasone Dipropionate (N ([facility]), 1 PUFF INH BID Calcitriol (Rocaltrol), 0.5 MCG PO DAILY Diltiazem Hcl Coated Beads (Diltiazem Hcl Er), 120 MG PO DAILY Ferrous Sulfate (Ferrous Sulfate), 325 MG PO DAILY Furosemide (Lasix), 80 MG PO BID Home O2 Therapy (Oxygen), LITERS NA QPM Insulin Glargine (Lantus), 25 UNITS SQ QAM Insulin Glargine (Lantus), 11 UNITS SQ EVENING MEAL Isosorbide Mononitrate (Isosorbide Mononitrate ER), 60 MG PO DAILY Losartan Potassium (Cozaar), 0.5 MG PO DAILY Lovastatin (Mevacor), 80 MG PO HS Metoprolol Succinate (Metoprolol Succinate ER), 12.5 MG PO DAILY Omeprazole (Omeprazole), 20 MG PO DAILY Solifenacin (Vesicare), 5 MG PO DAILY Umeclidinium-Vilanterol (Anoro Ellipta 62.5-25 Mcg/INH), 1 PUFF INH DAILY Warfarin Sod (Jantoven), 4 MG PO 5XWK Warfarin Sodium (Coumadin), 1 TAB PO 2XWK Scheduled PRN Glucose-Vitamin C (Glucose), 1 TAB PO UD PRN for LOW SUGAR Levalbuterol Hcl (Levalbuterol Hcl), 3 ML INH Q4 PRN for SOB/Wheezing Nitroglycerin (Nitrostat), 0.4 MG UT PRN PRN for Chest Pain Miscellaneous Medications Insulin Aspart (Novolog) Review of Systems Constitutional: No fever, No weight loss, No weakness Eyes: No worsening of vision, No eye pain ENT: No hearing loss, No unusual epistaxis, No trouble swallowing Respiratory: + cough, + sputum, + dyspnea on exertion Cardiovascular: + chest pain, + orthopnea, + edema, No palpitations Abdomen: No pain, No nausea, No vomiting Musculoskeletal: + swelling Genitourinary - Female: No dysuria, No urinary frequency Neurologic: No memory loss, No paralysis, No weakness Psychiatric: No substance abuse Endocrine: No excessive thirst Hematologic / Lymphatic: No night sweats Integumentary: No rash, No itch Physical Exam Vital Signs Date Time Temp Pulse Resp B/P (MAP) Pulse Ox O2 Delivery O2 Flow Rate FiO2 02/09/17 10:53 77 164/51 02/09/17 09:40 80 22 167/54 100 Nasal Cannula 2.0 02/09/17 08:45 72 24 197/66 99 Room Air 02/09/17 08:45 100 Nasal Cannula 2.0 02/09/17 08:11 72 02/09/17 08:10 99 Room Air 02/09/17 08:10 36.7 81 24 162/116 99 Room Air 02/09/17 08:10 99 Room Air General Appearance: WD/WN, + mild distress Head: normocephalic, atraumatic Eyes: normal inspection, PERRL, EOMI ENT: hearing grossly normal Neck: supple, no JVD Respiratory/Chest: lungs clear, + respiratory distress (Mild ) Cardiovascular: regular rate, rhythm, no JVD Abdomen/GI: normal bowel sounds, non tender, soft Back: normal inspection, no CVA tenderness Extremities/Musculoskelatal: + pertinent finding (+edema, Tenderness in the left leg) Neurologic/Psych: learning disabilities specialist II-XII nml as tested, no motor/sensory deficits, alert, oriented x 3 Skin: warm/dry, no rash Diagnostics Laboratory Results Results Past 24 Hours Test 02/09/17 08:20 02/09/17 08:26 02/09/17 11:43 Range/Units White Blood Count 3.60 4.8-10.8 K/uL Red Blood Count 3.64 4.2-5.4 M/uL Hemoglobin 10.6 12.0-16.0 g/dL Hematocrit 32.9 37-47 % Mean Corpuscular Volume 90.4 80-100 fL Mean Corpuscular Hemoglobin 29.1 25-34 pg Mean Corpuscular Hemoglobin Concent 32.2 32-36 g/dl Platelet Count 91 130-400 K/uL Mean Platelet Volume 9.6 7.4-10.4 fL Neutrophils (%) (Auto) 43.3 % Lymphocytes (%) (Auto) 44.7 % Monocytes (%) (Auto) 9.2 % Eosinophils (%) (Auto) 2.2 % Basophils (%) (Auto) 0.3 % Neutrophils # (Auto) 1.56 1.4-6.5 K/uL Lymphocytes # (Auto) 1.61 1.2-3.4 K/uL Monocytes # (Auto) 0.33 0.11-0.59 K/uL Eosinophils # (Auto) 0.08 0-0.5 K/uL Basophils # (Auto) 0.01 0-0.2 K/uL RDW Standard Deviation 46.4 36.4-46.3 fL RDW Coefficient of Variation 13.9 11.5-14.5 % Immature Granulocyte % (Auto) 0.3 % Immature Granulocyte # (Auto) 0.01 0.00-0.02 K/uL Platelet Estimate DECREASED Prothrombin Time 18.3 9.0-12.0 SECONDS Prothromb Time International Ratio 1.7 0.9-1.1 Activated Partial Thromboplast Time 30.7 21.0-31.0 SECONDS Partial Thromboplastin Ratio 1.2 D-Dimer 320 0-500 ug/L FEU Sodium Level 143 136-145 mmol/L Potassium Level 3.5 3.5-5.1 mmol/L Chloride Level 104 98-107 mmol/L Carbon Dioxide Level 27 21-32 mmol/L Anion Gap 12.0 3-11 mmol/L Blood Urea Nitrogen 31 7-18 mg/dl Creatinine 1.90 0.60-1.20 mg/dl Est Creatinine Clear Calc Drug Dose 30.3 ml/min Estimated GFR () 28.8 Estimated GFR (Non- 24.8 BUN/Creatinine Ratio 16.5 10-20 Random Glucose 137 70-99 mg/dl Calcium Level 9.3 8.5-10.1 mg/dl Total Bilirubin 0.6 0.2-1 mg/dl Aspartate Amino Transf (AST/SGOT) 15 15-37 U/L Alanine Aminotransferase (ALT/SGPT) 16 12-78 U/L Alkaline Phosphatase 105 45-117 U/L Troponin I < 0.015 0-0.045 ng/ml Total Protein 6.4 6.4-8.2 gm/dl Albumin 3.2 3.4-5.0 gm/dl Globulin 3.2 2.5-4.0 gm/dl Albumin/Globulin Ratio 1.0 0.9-2 Bedside Troponin I < 0.030 0-0.045 ng/ml Bedside Glucose 192 70-90 mg/dl Diagnostic Radiology CHEST ONE VIEW PORTABLE CLINICAL HISTORY: shortness of breath dyspnea COMPARISON STUDY: 09/12/2016 FINDINGS: Lungs are clear. Mild stable cardiomegaly. Diaphragms are smooth. IMPRESSION: Mild stable cardiomegaly. Otherwise negative study Impression Assessment and Plan CHEST PAIN Possible related to costochondritis vs Pleuritis chest pain Worsening with cough and deep breathing Need to r/o ACS Recently saw dr. Do on 02/02 Troponin negative, EKG did not show any ischemic changes Follow up CM Repeat EKG in AM No aspirin given because pt is allergy with aspirin Continue statin and carvedilol Consider cardiology consult if troponin trending up Will monitor in telemetry Echo done on 01/21/17 showed The qualitative LV ejection fraction is >70% (hyperdynamic). The LV wall thickness is mildly increased (concentric). The left ventricular wall motion is normal. The left ventricular diastolic function is mildly abnormal (grade I). DYSPNEA ASSOCIATED WITH COUGH Possible related to COPD exacerbation Pt does not look decompensate D-Dimer negative CXR showed Lungs are clear and mild stable cardiomegaly No wheezing on exam will start on Tessalon perles Check BNP in am Duoneb treatment Continue ANORO and Qvar ACUTE KARLEE ON CKD STAGE 3 Creatine has been fluctuate in the last few months From 0.6 (09/04/16) then increase to--> 1.4--->1.7 Creatine on admission 1.9 Will hold losartan On lasix 80 mg BID, will hold it Consider to adjust lasix dose does not look overlook decompensated DM TYPE 2 Recent HBA1c was 6.5 on 10/28/16 Controlled continue current management Pharmacy consulted for glycemic management Insulin coverage HTN BP stable On Imdur, carvedilol, Diltiazem Hold Losartan and lasix PAROXYSMAL AFIB Rate is controlled on SNR Continue diltiazem, carvedilol, and imdur On coumadin INR 1.7 Monitor for GI bleed COPD Continue home meds on duoneb treatment MORBID OBESITY Counseling on diet CHRONIC DIASTOLIC CHF On Lasix at home due to chronic diastolic CHF/LE edema, lasix held for now Held diuretic due to KARLEE Monitor fluid status Does not appear to be in CHF Hx GI BLEED Last admisstion was 09/07/16 Hbg 10.6- Stable Monitor for GI bleed since pt is on coumadin GI PX on Protonix DVT PX on coumadin (INR 1.7) CODE STATUS DNR Level of Care Telemetry Resuscitation Status DO NOT RESUSCITATE VTE Prophylaxis VTE Risk Assessment Done? Y/N: Yes Risk Level: Moderate Given or contraindicated: Warfarin (Coumadin)
[2017-02-09] MEDS: WARFARIN SOD 2 MG TAB PO SCH (17:04)
[2017-02-09] MEDS: INSULIN ASPART 100 UNITS/ML 3 ML PEN SC SCH ×2 (17:53→21:06)
[2017-02-09] MEDS: BECLOMETHASONE HFA 40 MCG INHALER INH SCH (19:45)
[2017-02-09] MEDS: LOVASTATIN 20 MG TAB PO SCH (19:45)
[2017-02-09] MEDS ORDERED: INSULIN GLARGINE SOLOSTAR 100 UNITS/ML 3 ML PEN SQ SCH (21:00)
[2017-02-09] MEDS ORDERED: BECLOMETHASONE DIPROPIONATE INH SCH (21:00)
[2017-02-09] MEDS: INSULIN GLARGINE SOLOSTAR 100 UNITS/ML 3 ML PEN SQ SCH (21:06)
[2017-02-10] VITALS (12 sets, daily range): BP systolic 145–158; BP diastolic 63–81; PULSE 70–90; TEMP 36.4–37; O2SAT 92–100; Ht 165.1 cm; Wt 107.5 kg
[2017-02-10 06:16] LABS: HEMATOCRIT 33.6 % (37-47); MEAN CELL VOLUME 91.3 fL (80-100); MEAN CORPUSCULAR HGB CONC 30.7 g/dl (32-36); RED BLOOD COUNT 3.68 M/uL (4.2-5.4)
[2017-02-10 06:26] LABS: PLATELET COUNT 86 K/uL (130-400)
[2017-02-10 06:52] LABS: ESTIMATED AVERAGE GLUCOSE 180 mg/dl; HA1C FLAG Normal (Normal)
[2017-02-10] MEDS: ALBUT/IPRATROP 3MG/0.5MG NEB 3 ML VIAL INH SCH ×4 (07:00→19:57)
[2017-02-10 07:01] LABS: BUN/CREATININE RATIO 17.3 (10-20); CALCIUM 8.7 mg/dl (8.5-10.1); CREATININE 1.8 mg/dl (0.60-1.20); POTASSIUM 3.8 mmol/L (3.5-5.1)
[2017-02-10] MEDS: BENZONATATE 100MG CAP PO SCH (07:30)
[2017-02-10] MEDS: PANTOprazole SOD 40 MG TAB PO SCH (07:30)
[2017-02-10] MEDS: METOPROLOL SUCC 25MG EXT REL TAB PO SCH (07:52)
[2017-02-10] MEDS: CALCITRIOL 0.25 MCG CAP PO SCH (07:52)
[2017-02-10] MEDS: FERROUS SULFATE 325 MG TAB PO SCH (07:53)
[2017-02-10] MEDS: ISOSORBIDE MONONITRATE 60 MG TABCR PO SCH (07:53)
[2017-02-10] MEDS: DILTIAZEM HCL 120 MG CAPCR PO SCH (07:53)
[2017-02-10] MEDS: INSULIN ASPART 100 UNITS/ML 3 ML PEN SC SCH ×4 (07:57→20:38)
[2017-02-10] MEDS: INSULIN GLARGINE SOLOSTAR 100 UNITS/ML 3 ML PEN SQ SCH ×2 (07:57→20:39)
[2017-02-10] MEDS: BECLOMETHASONE HFA 40 MCG INHALER INH SCH ×2 (08:00→20:33)
--- NOTE | 2017-02-10 08:36 | Pharmacy Progress Note ---
Glycemic Control: Progress Nt Date of Service Feb 10, 2017. Scope Glycemic Pharmacist consulted for glycemic control and to write orders per [facility] inpatient glycemic control protocol. Objective Accuchecks BSG (last 24hrs): Test 02/09/17 11:43 02/09/17 14:37 02/09/17 17:00 02/09/17 20:26 Bedside Glucose 192 mg/dl (70-90) 214 mg/dl (70-90) 159 mg/dl (70-90) 144 mg/dl (70-90) Test 02/09/17 23:06 02/10/17 05:50 02/10/17 07:25 Bedside Glucose 167 mg/dl (70-90) 182 mg/dl (70-90) Random Glucose 178 mg/dl (70-99) Laboratory Data (last 24hrs) HbA1c: Test 02/10/17 05:50 Hemoglobin A1c 7.9 % (4.5-5.6) H Recent Pertinent Medications Outpatient Anti-diabetic Regimen: * Lantus 25 units in AM + 11 units in PM * NovoLog 2-8 units ACHS PRN The patient is currently receiving: * Basal insulin: Lantus 18 units SQ BID * Correctional Insulin: Novolog Correction per scale ACHS Goal Range: Low 110 mg/dL - High 140 mg/dL Correction Factor: 20 mg/dL/unit * Prandial insulin: Per carb ratio of 1 unit per 7 grams CHO consumed Assessment & Plan ASSESSMENT: * 77yo T2DM female with adequate outpatient glycemic control based on age & comorbidities per A1c today of 7.9% * Pt is maintained on SQ basal bolus insulin regimen as an outpatient - but outpatient regimen is heavily weighted towards basal insulin {most likely basal insulin is covering some prandial needs} * Re-distributed regimen based on previous admissions to a more 50%:50% distribution for inpatient use. * Equal distribution preferred for inpatient use to prevent hypo when PO intake changes * Per previous admissions, total daily dose of ~ 605units/day yielded near adequate control * Patient received ~26 units of insulin over the past 24hrs * 18 units of basal insulin {unsure if patient took basal insulin [employer]} * 8 units of prandial/correctional insulin * BSGs ranging 144 - 192 mg/dl over the past 24hrs * Changes needed to insulin regimen: * AM Fasting BSG = 182 mg/dl. This is in slightly above goal range for patient based on inpatient targets and co-morbidities. However, patient may be basal deficient if she did not take her Lantus [employer]. Current dosing has worked on previous admissions therefore will continue Lantus 18 units BID and re-evaluate need for dose increase over the next 24hrs. * Post-prandial BSGs are in range therefore no changes needed to CF/CR PLAN FOR INPATIENT GLYCEMIC CONTROL: no changes needed to regimen at this time. * Basal insulin * Lantus 18 units SQ BID * Bolus insulin * NovoLog per scale ACHS or Q6hrs while NPO * Goal Range: Low 110 mg/dL - High 140 mg/dL * Correction Factor: 20 mg/dL/unit * Nutritional / Prandial insulin per carb ratio of 1 unit per 7 grams CHO consumed * Please note that the plan above was derived based on current level of insulin resistance and hospital stress. These recommendations are appropriate for inpatient admission only. Plan of care upon discharge will need to be reassessed to avoid potential outpatient hypo/hyperglycemia. Thank you.
[2017-02-10] MEDS ORDERED: NURSING VERBAL MED ORDER ONE ×2 (08:45→21:00)
[2017-02-10] MEDS ORDERED: DILTIAZEM HCL 120 MG CAPCR PO SCH (09:00)
[2017-02-10] MEDS ORDERED: ACETAMINOPHEN 325 MG TAB PO PRN (09:15)
[2017-02-10] MEDS ORDERED: DOXYCYCLINE HYCLATE 100 MG CAP PO STA (09:51)
[2017-02-10] MEDS ORDERED: METHYLPREDNISOLONE IV 40 MG in SYRINGE 0 ML IV ONE (10:30)
[2017-02-10] MEDS: METHYLPREDNISOLONE IV 40 MG in SYRINGE 0 ML IV SCH ×2 (11:26→18:58)
[2017-02-10 12:45] LABS: URINE APPEARANCE CLOUDY (CLEAR); URINE BILIRUBIN NEG (NEG); URINE COLOR YELLOW; URINE EPITHELIAL CELL AUTO >30 /lpf (0-5); URINE NITRITE NEG (NEG); URINE PH 5.5 (4.5-7.5); URINE SPECIFIC GRAVITY 1.014 (1.000-1.030); UROBILINOGEN NEG (NEG)
[2017-02-10 12:52] LABS: MANUAL MICROSCOPIC REQUIRED? NO; REVIEW REQ? NO
[2017-02-10] MEDS ORDERED: LEVOFLOXACIN 750 MG TAB PO ONE (14:00)
[2017-02-10] MEDS: GUAIFENESIN SUGAR FREE 100 MG/5 ML UDC PO PRN (14:05)
--- NOTE | 2017-02-10 14:15 | Progress Note ---
Internal Med Progress Note Date of Service: Feb 10, 2017. Provider Documentation: SUBJECTIVE: The patient was seen and examined Complains of cough and SOB Generalized weam]kness OBJECTIVE: Vital Signs-as noted below Exam: General-Moderate distress at rest Eyes-Normal ENT-normal Neck-supple Lungs-Decreased breath sound bilaterally at the bases Occasional wheezing at the bases Heart-Regular,no murmur appreciated Abdomen-Benign,no masses,bowel sound present Extremities-No edema Neuro-AAOx3 Lab data as noted below. ASSESSMENT & PLAN: CHEST PAIN Possible related to costochondritis vs Pleuritis chest pain Worsening with cough and deep breathing Need to r/o ACS-Serial Alonzo are unremarkable ,normal EKG Recently saw dr. Do on 02/02 No aspirin given because pt is allergy with aspirin Continue statin and carvedilol Will monitor in telemetry-no arrhythmia Echo done on 01/21/17 showed The qualitative LV ejection fraction is >70% (hyperdynamic). The LV wall thickness is mildly increased (concentric). The left ventricular wall motion is normal. The left ventricular diastolic function is mildly abnormal (grade I). DYSPNEA ASSOCIATED WITH COUGH Possible related to COPD exacerbation Pt does not look decompensate D-Dimer negative CXR showed Lungs are clear and mild stable cardiomegaly Productive cough with minimal wheezing Continue ANORO and Qvar Will add Levaquin to cover Bronchitis and UTI Will start small dose of Solumedrol as well Fowl smelling Urine Dysuria UA-suggestive of infection Will start Levaquin ACUTE KARLEE ON CKD STAGE 3 Creatine has been fluctuate in the last few months From 0.6 (09/04/16) then increase to--> 1.4--->1.7 On lasix 80 mg BID, will hold it Consider to adjust Lasix dose DM TYPE 2 Recent HBA1c was 6.5 on 10/28/16 Controlled continue current management Pharmacy consulted for glycemic management HTN BP stable On Imdur, carvedilol, Diltiazem Hold Losartan and lasix PAROXYSMAL AFIB Rate is controlled on SNR Continue diltiazem, carvedilol, and imdur On coumadin INR 1.7 Monitor for GI bleed COPD Continue home meds on duoneb treatment MORBID OBESITY Counseling on diet CHRONIC DIASTOLIC CHF On Lasix at home due to chronic diastolic CHF/LE edema, lasix held for now Held diuretic due to KARLEE Monitor fluid status Does not appear to be in CHF Hx GI BLEED Last admisstion was 09/07/16 Hbg 10.6- Stable Monitor for GI bleed since pt is on Coumadin GI PX on Protonix DVT PX on coumadin (INR 1.7) CODE STATUS DNR Disposition Awaited Vital Signs: Date Time Temp Pulse Resp B/P (MAP) Pulse Ox O2 Delivery O2 Flow Rate FiO2 02/10/17 12:00 97 Room Air 02/10/17 11:54 37.0 80 20 149/63 (91) 97 02/10/17 11:18 74 18 92 Room Air 02/10/17 08:00 97 Room Air 02/10/17 07:00 82 18 98 Room Air 02/10/17 06:51 37.0 88 20 156/71 (99) 97 Room Air 02/10/17 04:17 37.0 84 20 145/77 (99) 95 Room Air 02/10/17 04:00 Room Air 02/10/17 00:01 Room Air 02/09/17 23:53 36.6 88 20 154/74 (100) 96 Room Air 02/09/17 20:00 Room Air 02/09/17 19:34 36.8 78 18 146/70 (95) 97 Room Air 02/09/17 19:15 72 18 98 Room Air 02/09/17 16:19 36.3 72 22 127/69 (88) 99 02/09/17 16:00 Room Air 02/09/17 15:32 75 16 98 Room Air Lab Results: Results Past 24 Hours Test 02/09/17 14:27 02/09/17 14:37 02/09/17 17:00 02/09/17 20:00 Range/Units Creatine Kinase MB 1.2 0.5-3.6 ng/ml Troponin I < 0.015 0-0.045 ng/ml Bedside Glucose 214 159 70-90 mg/dl Creatine Kinase MB Ratio 0-3.0 Test 02/09/17 20:10 02/09/17 20:26 02/09/17 23:06 02/10/17 05:50 Range/Units Creatine Kinase MB 1.3 0.5-3.6 ng/ml Troponin I < 0.015 0-0.045 ng/ml Bedside Glucose 144 167 70-90 mg/dl White Blood Count 2.70 4.8-10.8 K/uL Red Blood Count 3.68 4.2-5.4 M/uL Hemoglobin 10.3 12.0-16.0 g/dL Hematocrit 33.6 37-47 % Mean Corpuscular Volume 91.3 80-100 fL Mean Corpuscular Hemoglobin 28.0 25-34 pg Mean Corpuscular Hemoglobin Concent 30.7 32-36 g/dl RDW Standard Deviation 47.1 36.4-46.3 fL RDW Coefficient of Variation 14.3 11.5-14.5 % Platelet Count 86 130-400 K/uL Mean Platelet Volume 10.0 7.4-10.4 fL Sodium Level 142 136-145 mmol/L Potassium Level 3.8 3.5-5.1 mmol/L Chloride Level 106 98-107 mmol/L Carbon Dioxide Level 26 21-32 mmol/L Anion Gap 10.0 3-11 mmol/L Blood Urea Nitrogen 31 7-18 mg/dl Creatinine 1.80 0.60-1.20 mg/dl Est Creatinine Clear Calc Drug Dose 32.0 ml/min Estimated GFR () 30.7 Estimated GFR (Non- 26.5 BUN/Creatinine Ratio 17.3 10-20 Random Glucose 178 70-99 mg/dl Estimated Average Glucose 180 mg/dl Hemoglobin A1c 7.9 4.5-5.6 % Calcium Level 8.7 8.5-10.1 mg/dl Test 02/10/17 07:25 02/10/17 11:44 02/10/17 12:02 Range/Units Bedside Glucose 182 168 70-90 mg/dl Urine Color YELLOW Urine Appearance CLOUDY CLEAR Urine pH 5.5 4.5-7.5 Urine Specific [place] 1.014 1.000-1.030 Urine Protein NEG NEG Urine Glucose (UA) NEG NEG Urine Ketones NEG NEG Urine Occult Blood NEG NEG Urine Nitrite NEG NEG Urine Bilirubin NEG NEG Urine Urobilinogen NEG NEG Urine Leukocyte Esterase LARGE NEG Urine WBC (Auto) >30 0-5 /hpf Urine RBC (Auto) 0-4 0-4 /hpf Urine Hyaline Casts (Auto) 1-5 0-5 /lpf Urine Epithelial Cells (Auto) >30 0-5 /lpf Urine Bacteria (Auto) 4+ NEG Microbiology Results 02/10/17 Urine Culture, Received Pending
[2017-02-10] MEDS: WARFARIN SOD 4 MG TAB PO SCH (15:48)
[2017-02-10] MEDS: LOVASTATIN 20 MG TAB PO SCH (20:34)
[2017-02-10] MEDS ORDERED: DOXYCYCLINE HYCLATE 100 MG CAP PO SCH (21:00)
[2017-02-11] VITALS (11 sets, daily range): BP systolic 146–193; BP diastolic 68–98; PULSE 81–99; TEMP 36.5–37; O2SAT 95–99
[2017-02-11] MEDS: METHYLPREDNISOLONE IV 40 MG in SYRINGE 0 ML IV SCH ×3 (02:07→17:47)
[2017-02-11] MEDS: ALBUT/IPRATROP 3MG/0.5MG NEB 3 ML VIAL INH SCH ×4 (07:10→19:33)
[2017-02-11] MEDS: PANTOprazole SOD 40 MG TAB PO SCH (07:45)
[2017-02-11] MEDS: FERROUS SULFATE 325 MG TAB PO SCH (07:45)
[2017-02-11] MEDS: DILTIAZEM HCL 120 MG CAPCR PO SCH (07:46)
[2017-02-11] MEDS: CALCITRIOL 0.25 MCG CAP PO SCH (07:46)
[2017-02-11] MEDS: GUAIFENESIN SUGAR FREE 100 MG/5 ML UDC PO PRN (07:47)
[2017-02-11] MEDS: METOPROLOL SUCC 25MG EXT REL TAB PO SCH (07:47)
[2017-02-11] MEDS: ISOSORBIDE MONONITRATE 60 MG TABCR PO SCH (07:47)
[2017-02-11] MEDS: INSULIN ASPART 100 UNITS/ML 3 ML PEN SC SCH ×4 (07:55→21:38)
[2017-02-11] MEDS: BECLOMETHASONE HFA 40 MCG INHALER INH SCH ×2 (07:56→21:37)
[2017-02-11] MEDS ORDERED: LORAZEPAM INJ 0.5 MG in SYRINGE 0.25 ML IV ONE (08:45)
[2017-02-11] MEDS ORDERED: INSULIN GLARGINE SOLOSTAR 100 UNITS/ML 3 ML PEN SQ SCH (09:00)
[2017-02-11 09:16] LABS: INR 1.5 (0.9-1.1); PROTHROMBIN TIME (PATIENT) 16.1 SECONDS (9.0-12.0)
--- NOTE | 2017-02-11 10:47 | Progress Note ---
Internal Med Progress Note Date of Service: Feb 11, 2017. Provider Documentation: SUBJECTIVE: The patient was seen and examined Complains of chest tightness with cough and SOB Very anxious No fever,chills and no nausea and or vomiting OBJECTIVE: Vital Signs-as noted below Exam: General-Moderate distress at rest Eyes-Normal ENT-normal Neck-supple Lungs-Decreased breath sound bilaterally at the bases Occasional wheezing at the bases Heart-Regular,no murmur appreciated Abdomen-Benign,no masses,bowel sound present Extremities-No edema Neuro-AAOx3 Lab data as noted below. ASSESSMENT & PLAN: Atypical CHEST PAIN Possible related to costochondritis vs Pleuritis chest pain Worsening with cough and deep breathing Need to r/o ACS-Serial Alonzo are unremarkable ,normal EKG Recently saw dr. Do on 02/02 No aspirin given because pt is allergy with aspirin Continue statin and carvedilol Will monitor in telemetry-no arrhythmia Echo done on 01/21/17 showed The qualitative LV ejection fraction is >70% (hyperdynamic). The LV wall thickness is mildly increased (concentric). The left ventricular wall motion is normal. The left ventricular diastolic function is mildly abnormal (grade I). EKG-minimal ST depression in lateral leads Troponin negative Will get Cardiology evaluation with h/o CAD Ativan PRN of anxiety DYSPNEA ASSOCIATED WITH COUGH Possible related to COPD exacerbation Pt does not look decompensate D-Dimer negative CXR showed Lungs are clear and mild stable cardiomegaly Productive cough with minimal wheezing Continue ANORO and Qvar Will add Levaquin to cover Bronchitis and UTI Will start small dose of Solumedrol as well UTI -growing E Coli Fowl smelling Urine Dysuria UA-suggestive of infection Started on Levaquin ACUTE KARLEE ON CKD STAGE 3 Creatine has been fluctuate in the last few months From 0.6 (09/04/16) then increase to--> 1.4--->1.7 On lasix 80 mg BID, will hold it Consider to adjust Lasix dose DM TYPE 2 Recent HBA1c was 6.5 on 10/28/16 Controlled continue current management Pharmacy consulted for glycemic management HTN BP stable On Imdur, carvedilol, Diltiazem Hold Losartan and lasix PAROXYSMAL AFIB Rate is controlled on SNR Continue diltiazem, carvedilol, and imdur On coumadin INR 1.7 Monitor for GI bleed COPD Continue home meds on duoneb treatment MORBID OBESITY Counseling on diet CHRONIC DIASTOLIC CHF On Lasix at home due to chronic diastolic CHF/LE edema, lasix held for now Held diuretic due to KARLEE Monitor fluid status Does not appear to be in CHF Hx GI BLEED Last admisstion was 09/07/16 Hbg 10.6- Stable Monitor for GI bleed since pt is on Coumadin GI PX on Protonix DVT PX on coumadin (INR 1.7) CODE STATUS DNR Disposition Awaited Vital Signs: Date Time Temp Pulse Resp B/P (MAP) Pulse Ox O2 Delivery O2 Flow Rate FiO2 02/11/17 08:00 Room Air 02/11/17 07:15 36.7 88 18 177/98 (124) 98 Room Air 02/11/17 07:10 85 18 96 Room Air 02/11/17 04:03 37.0 99 18 146/78 (100) 96 Room Air 02/11/17 04:00 Room Air 02/11/17 00:00 Room Air 02/10/17 23:26 36.9 90 20 158/68 (98) 95 Room Air 02/10/17 20:00 Room Air 02/10/17 19:57 86 18 99 Room Air 02/10/17 19:46 36.6 71 20 153/81 (105) 100 02/10/17 16:00 Room Air 02/10/17 14:52 36.4 70 18 145/71 (95) 100 02/10/17 14:32 74 18 94 Room Air 02/10/17 12:00 97 Room Air 02/10/17 11:54 37.0 80 20 149/63 (91) 97 02/10/17 11:18 74 18 92 Room Air Lab Results: Results Past 24 Hours Test 02/10/17 11:44 02/10/17 12:02 02/10/17 16:18 02/10/17 20:30 Range/Units Bedside Glucose 168 221 306 70-90 mg/dl Urine Color YELLOW Urine Appearance CLOUDY CLEAR Urine pH 5.5 4.5-7.5 Urine Specific [place] 1.014 1.000-1.030 Urine Protein NEG NEG Urine Glucose (UA) NEG NEG Urine Ketones NEG NEG Urine Occult Blood NEG NEG Urine Nitrite NEG NEG Urine Bilirubin NEG NEG Urine Urobilinogen NEG NEG Urine Leukocyte Esterase LARGE NEG Urine WBC (Auto) >30 0-5 /hpf Urine RBC (Auto) 0-4 0-4 /hpf Urine Hyaline Casts (Auto) 1-5 0-5 /lpf Urine Epithelial Cells (Auto) >30 0-5 /lpf Urine Bacteria (Auto) 4+ NEG Test 02/11/17 05:19 02/11/17 07:17 02/11/17 08:57 Range/Units Bedside Glucose 257 283 70-90 mg/dl Prothrombin Time 16.1 9.0-12.0 SECONDS Prothromb Time International Ratio 1.5 0.9-1.1 Troponin I 0.020 0-0.045 ng/ml Microbiology Results 02/10/17 Urine Culture - Preliminary, Resulted Escherichia Coli
--- NOTE | 2017-02-11 12:24 | Pharmacy Progress Note ---
Glycemic Control: Progress Nt Date of Service Feb 11, 2017. Scope Glycemic Pharmacist consulted by Dr Gibson on 02/09/17 for glycemic control and to write orders per [facility] inpatient glycemic control protocol. Objective Accuchecks BSG (last 24hrs): Test 02/10/17 16:18 02/10/17 20:30 02/11/17 05:19 02/11/17 07:17 Bedside Glucose 221 mg/dl (70-90) 306 mg/dl (70-90) 257 mg/dl (70-90) 283 mg/dl (70-90) Test 02/11/17 11:13 Bedside Glucose 287 mg/dl (70-90) HbA1c: Test 02/10/17 05:50 Hemoglobin A1c 7.9 % (4.5-5.6) H Recent Pertinent Medications Outpatient Anti-diabetic Regimen: * Lantus 25 units qAM and Lantus 11 units qPM + Novolog 2-8 units before meals as needed The patient is currently receiving: * Basal insulin: Lantus 18 units every 12 hours * Correctional Insulin: Novolog Correction per scale ACHS Goal Range: Low 110 mg/dL - High 140 mg/dL Correction Factor: 20 mg/dL/unit * Prandial insulin: Per carb ratio of 1 unit per 7 grams CHO consumed Risk Factors for Insulin Resistance: * Steroids: started on Solu-Medrol 40 mg IV q8 hours yesterday evening * Infection: questionable bronchitis * Diet: type 2 diabetic diet Assessment & Plan ASSESSMENT: * ADA & AACE recommend a goal blood sugar range 140-180 mg/dl for the majority of critically ill & non-critically ill patients. However, more stringent targets may be selected in individual cases. Will utilize more stringent goal of 110-140 mg/dl based on patient age & comorbidities. Additionally, tighter glycemic control is warranted to facilitate wound/infection healing. * Ms Harp was admitted 02/09/17 for chest pain. She is well known to the glycemic service. She was started on the same amount of Lantus as at home just evenly distributed twice daily. A weight-based stress of 2 correctional factor was started. Her blood sugars yesterday ranged from 168-306 mg/dL yesterday ( 306 mg/dL was after Solu-Medrol 40 mg started and no adjustments made). She received a total of 76 units yesterday (36 units were basal and 40 units prandial). * Today, Ms Harp's fasting blood sugar was 257 mg/dL which was due to the steroids. Therefore, since the patient was already tolerating a weight based stress of two insulin, I increased her insulin to weight based of stress of 3. I also instituted a sliding scale this evening in case steroids are decreased and then there will not be extra Lantus on board when steroids decreased. PLAN FOR INPATIENT GLYCEMIC CONTROL: * INCREASING Lantus to 20-25 units SQ BID (give 20 if blood sugar less than 140 mg/dL and 25 units if blood sugar 140 mg/dL or greater) * TIGHTEN correction factor to 15 mg/dl/unit * TIGHTEN carb ratio to 1 unit per 5 grams CHO consumed * Continuing goal range of Low 110 mg/dL - High 140 mg/dL * Please note that the plan above was derived based on current level of insulin resistance and hospital stress. These recommendations are appropriate for inpatient admission only. Plan of care upon discharge will need to be reassessed to avoid potential outpatient hypo/hyperglycemia. Thank you.
--- NOTE | 2017-02-11 12:33 | Cardiology Consultation ---
Cardiology Consultation Date of Consultation: Feb 11, 2017 Requesting Physician: Junior Attending Per Diem: Reece (Jaleel Johansen PA-C) History of Present Illness Ms. Harp is a 76 year old female who is being seen at the request of Dr. Pacheco. Reasons for consultation include angina equivalent symptoms, EKG changes. The patient received IV lorazepam earlier today for anxiety. She is disoriented , confusion. History is very difficult to obtain and thus the accuracy is in question. The patient describes having a bad few weeks secondary to abnormal glucose readings. She describes a mild light pain in various areas of her chest, typically on the right side. She states that it feels funny, occurring without rhythm or reason. It is not aggravated by activity. She notes no aggravating or alleviating factors. It is worse with palpation of the right breast and chest pain stating "putting pressure on it intensifies the pain." She notes increased dyspnea, difficulty getting a deep breath, pleuritic discomfort. No increased abdominal bloating, orthopnea, PND, worsening lower extremity edema, or abrupt weight gain. She denies palpitations. No lightheadedness, dizziness, near syncope, or syncope. No fevers or chills. No epistaxis, hemoptysis, melena, or hematochezia. (Jaleel Johansen PA-C) History Past Medical and Surgical History: Atherosclerotic coronary disease s/p coronary intervention left anterior descending 2000. Repeat cardiac catheterization August 2014 without significant progression of disease when compared to evaluation in 2011 History of prior iatrogenic pulmonary embolus, DVT. Class 3 diastolic dysfunction. Paroxysmal atrial fibrillation COPD, past tobacco abuse Hypertension with hypertensive heart disease. Chart history of CVA Moderate obesity. Obstructive sleep apnea, unable to afford CPAP Type II diabetes mellitus with neuropathy Stage III CKD Dyslipidemia Esophageal stricture Gastroparesis Chronic stasis edema. Migraines Diverticular GI bleed in August 2016 Fall in 2010, resultant left humerus shaft fracture Appendectomy Breast biopsy Left hip replacement Social History: Reformed smoker, quit in 1995 after smoking ~1 ppd x 40 years. No smokeless tobacco. No alcohol. No illegal drug use. . Four children. Retired. Family History: Father was an alcoholic. Mother with cervical cancer. Brother with testicular cancer. (Jaleel Johansen PA-C) Review Of Systems An accurate and complete review of systems could not be obtained secondary to the patients confusion, disorientation. (Jaleel Johansen PA-C) Allergies Coded Allergies: Acetaminophen (Verified Allergy, Unknown, UNKNOWN, 01/06/17) INFO FROM PT Codeine (Verified Allergy, Unknown, UNKNOWN, 01/06/17) INFO FROM PT Aspirin (Verified Adverse Reaction, Intermediate, (ULCER), 01/06/17) Venlafaxine (Verified Adverse Reaction, Intermediate, DROWINESS/ CONFUSION , 01/06/17) Cephalexin (Verified Adverse Reaction, Mild, DROWSINESS, UNABLE TO DRIVE, UPSET STOMACH, 01/06/17) Oxycodone (Verified Adverse Reaction, Mild, n/v, 01/06/17) gmg Medications Reported Home Medications Medications Dose Route/Sig Max Daily Dose Days Date Category Dose Instructions Anoro Ellipta 62.5-25 Mcg/INH (Umeclidinium-Vilanterol) 1 Aer Aer 1 Puff INH DAILY 02/09/17 Reported Qnasl Childrens (Beclomethasone Dipropionate (N) 40 Mcg/Act Spr 1 Puff INH BID 02/09/17 Reported Cozaar (Losartan Potassium) 100 Mg Tab 0.5 Mg PO DAILY 02/09/17 Reported Oxygen Gas Liters NA QPM 02/09/17 Reported Glucose (Glucose-Vitamin C) 1 Chw Chw 1 Tab PO UD PRN 02/09/17 Reported Diltiazem Hcl Er (Diltiazem Hcl Coated Beads) 120 Mg Cap 120 Mg PO DAILY 02/09/17 Reported Coumadin (Warfarin Sodium) 2 Mg Tab 1 Tab PO 2XWK 02/09/17 Reported 1/2 OF A 4MG ON MONDAYS AND THURSDAYS. Ferrous Sulfate 325 Mg Tab 325 Mg PO DAILY 01/06/17 Reported Jantoven (Warfarin Sodium) 4 Mg Tab 4 Mg PO 5XWK 01/06/17 Reported SUN, TUES, WED, FRI, SAT Isosorbide Mononitrate ER (Isosorbide Mononitrate) 60 Mg Tab 60 Mg PO DAILY 01/06/17 Reported Rocaltrol (Calcitriol) 0.5 Mcg Cap 0.5 Mcg PO DAILY 01/06/17 Reported Novolog (Insulin Aspart) 100 Units/Ml Inj 01/06/17 Reported SLIDING SCALE Mevacor (Lovastatin) 40 Mg Tab 80 Mg PO HS 09/07/16 Reported 2 TABLETS AT BEDTIME Lantus (Insulin Glargine) 100 Unit/Ml Inj 11 Units SQ EVENING MEAL 09/07/16 Reported Lantus (Insulin Glargine) 100 Unit/Ml Inj 25 Units SQ QAM 09/07/16 Reported Metoprolol Succinate ER (Metoprolol Succinate) 25 Mg Tabcr 12.5 Mg PO DAILY 08/19/16 Reported Levalbuterol Hcl 1.25 Mg/3 Ml Neb 3 Ml INH Q4 PRN 05/15/16 Reported Vesicare (Solifenacin) 5 Mg Tab 5 Mg PO DAILY 05/15/16 Reported Lasix (Furosemide) 80 Mg Tab 80 Mg PO BID 10/26/15 Reported Nitrostat (Nitroglycerin) 0.4 Mg Sub 0.4 Mg UT PRN PRN 06/20/15 Reported Omeprazole 20 Mg Tab 20 Mg PO DAILY 06/20/15 Reported (Jaleel Johansen, NINOC) Physical Exam Vital Signs (Last 8hrs): Last 8 Hrs Date Time Temp Pulse Resp B/P (MAP) Pulse Ox O2 Delivery O2 Flow Rate FiO2 02/11/17 11:30 37.0 90 16 149/68 (95) 96 Room Air 02/11/17 11:23 81 18 95 Room Air 02/11/17 08:00 Room Air 02/11/17 07:15 36.7 88 18 177/98 (124) 98 Room Air 02/11/17 07:10 85 18 96 Room Air 02/11/17 04:03 37.0 99 18 146/78 (100) 96 Room Air 02/11/17 04:00 Room Air General: Obese. Alert to person but not to place or time. NAD. HEENT: Normocephalic. Atraumatic. PER. EOMI. Conjunctiva are pink and non- injected, sclera clear Neck: Supple, no adenopathy. No bruits. No JVD. No HJR. Lungs: Diminished breath sounds, more so on the right than the left but diminished throughout. Faint right upper anterior expiratory wheezing. no rales. Cardiac Exam: - Regular at 100 bpm. Abdomen: +BS. Soft. No masses. Extremities: Dressing to both lower extremities. Trace to 1+ chronic edema edema, more towards the lower end of the estimate. No cyanosis. (Jaleel Johansen PA-C) Data Last 24 Hours Test 02/10/17 11:44 02/10/17 12:02 02/10/17 16:18 02/10/17 20:30 Bedside Glucose 168 mg/dl 221 mg/dl 306 mg/dl Urine Color YELLOW Urine Appearance CLOUDY Urine pH 5.5 Urine Specific [place] 1.014 Urine Protein NEG Urine Glucose (UA) NEG Urine Ketones NEG Urine Occult Blood NEG Urine Nitrite NEG Urine Bilirubin NEG Urine Urobilinogen NEG Urine Leukocyte Esterase LARGE Urine WBC (Auto) >30 /hpf Urine RBC (Auto) 0-4 /hpf Urine Hyaline Casts (Auto) 1-5 /lpf Urine Epithelial Cells (Auto) >30 /lpf Urine Bacteria (Auto) 4+ Test 02/11/17 05:19 02/11/17 07:17 02/11/17 08:57 02/11/17 11:13 Bedside Glucose 257 mg/dl 283 mg/dl 287 mg/dl Prothrombin Time 16.1 SECONDS Prothromb Time International Ratio 1.5 Troponin I 0.020 ng/ml August 2014 cardiac catheterization showed no progression in disease when compared to the prior study of 2011. The previously placed LAD stent was noted to be patent. There was a 40 to 50% in stent narrowing of the LAD after a large diagonal branch and a long 40% narrowing of the proximal right coronary artery. Left ventricular end-diastolic pressures were normal with systolic hypertension observed January 21, 2017 TTE Interpretation Summary (as per Dr. Newell): The qualitative LV ejection fraction is >70% (hyperdynamic). The LV wall thickness is mildly increased (concentric). The left ventricular wall motion is normal. The left ventricular diastolic function is mildly abnormal (grade I). Mild aortic valve sclerosis is present. Mild tricuspid regurgitation is present. Compared to prior study of 02/20/2016, there is no significant change. EKG dated and timed 09-FEB-2017 @ 08:21:31: Poor data quality, interpretation may be adversely affected. Normal sinus rhythm with sinus arrhythmia. Nonspecific ST abnormality. EKG dated and timed 10-FEB-2017 @ 07:11:19: Normal sinus rhythm. Nonspecific ST abnormality. EKG dated and timed 11-FEB-2017 @ 08:44:54: Sinus tachycardia. Nonspecific ST abnormality. Telemetry reviewed: Sinus/sinus tachycardia. Rare ectopy, one couplet at 07:37: 42. Admission CXR without acute cardiopulmonary findings. (Jaleel Johansen PA-C) Assessment & Plan Atypical chest pain Suspect musculoskeletal etiology & pleuritis EKG's with nonspecific findings. Cardiac enzymes negative Limited TTE requested to assess LV function, wall motion, and for pericardial effusion Confusion, disorientation Hospitalist contacted Recommend discontinuation of lorazepam Diastolic dysfunction No evidence of acute decompensation. Paroxysmal atrial fibrillation Maintaining sinus rhythm thus far Continue AV anjel blockers and chronic Coumadin anticoagulation Hypertension Elevated, off Losartan and furosemide Increase Toprol XL for blood pressure and heart rate control. Dyslipidemia. Continue statin UTI. As per Hospitalist Service ? COPD exacerbation. As per Hospitalist Service (Jaleel Johansen PA-C) Cardiology attending physician: Patient seen and examined at the bedside. She is confused this afternoon. Patient received dose of Ativan. She believes she was evaluated at [facility] in [place] last night. I explained to the patient that she has been at [facility] over the past 12 hours. She did not argue with this. Currently chest pain-free. She has difficulty recalling the character or severity of her chest discomfort. According to recent progress notes the pain was described as right sided with a pleuritic component. No significant troponin elevation. There are no significant ST changes on 12-lead ECG. Nonspecific ST-T wave abdomen mildly is present. Limited repeat resting 2-D transthoracic echo pending. She was evaluated in the cardiology clinic late last month for similar complaints. At that time a complete resting 2-D transthoracic echo demonstrated no regional wall motion abnormalities. PE:VSS. General: NAD, confused, pleasant and cooperative. HEENT her mucous members are moist no scleral icterus. Heart: Regular, normal S1, normal S2. No murmur appreciated. Lungs: Clear bilateral. No rales, rhonchi, or wheeze. Abdomen: Soft, nontender, no rebound or guarding. Extremities: Mild, bilateral pedal and ankle edema. A/P: Agree with above PAC history, physical exam, assessment and plan. Patient' s chest discomfort likely noncardiac origin. There is no objective evidence of acute coronary syndrome. A limited resting 2-D transthoracic echo is pending to exclude the presence of possible pericardial effusion. If repeat echo is unremarkable no further cardiac testing will be indicated at this time. Recommend benzodiazepines be discontinued due to change in mental status. This was discussed with the hospitalist service. Thank you for allow me to take part in the care of your patient. Lewis Newell DO, FACC (Soren Newell DO)
[2017-02-11] MEDS ORDERED: NURSING VERBAL MED ORDER ONE (14:30)
[2017-02-11] MEDS ORDERED: WARFARIN SOD 5 MG TAB PO SCH (16:00)
[2017-02-11] MEDS: INSULIN GLARGINE SOLOSTAR 100 UNITS/ML 3 ML PEN SC SCH (21:39)
[2017-02-11] MEDS: LOVASTATIN 20 MG TAB PO SCH (21:40)
[2017-02-12] VITALS (14 sets, daily range): BP systolic 119–179; BP diastolic 64–95; PULSE 70–91; TEMP 36.4–36.8; O2SAT 94–99
[2017-02-12] MEDS ORDERED: METOPROLOL TARTRATE 25 MG TAB PO STA (00:44)
[2017-02-12] MEDS: METHYLPREDNISOLONE IV 40 MG in SYRINGE 0 ML IV SCH (01:40)
[2017-02-12] MEDS: ALBUT/IPRATROP 3MG/0.5MG NEB 3 ML VIAL INH SCH ×4 (07:19→20:22)
[2017-02-12] MEDS: INSULIN ASPART 100 UNITS/ML 3 ML PEN SC SCH ×4 (08:41→20:59)
[2017-02-12] MEDS: INSULIN GLARGINE SOLOSTAR 100 UNITS/ML 3 ML PEN SC SCH (08:42)
[2017-02-12] MEDS: PANTOprazole SOD 40 MG TAB PO SCH (08:42)
[2017-02-12] MEDS: CALCITRIOL 0.25 MCG CAP PO SCH (08:44)
[2017-02-12] MEDS: ISOSORBIDE MONONITRATE 60 MG TABCR PO SCH (08:44)
[2017-02-12] MEDS: METOPROLOL SUCC 25MG EXT REL TAB PO SCH (08:45)
[2017-02-12] MEDS: DILTIAZEM HCL 120 MG CAPCR PO SCH (08:45)
[2017-02-12] MEDS: FERROUS SULFATE 325 MG TAB PO SCH (08:45)
[2017-02-12] MEDS: BECLOMETHASONE HFA 40 MCG INHALER INH SCH ×2 (08:45→20:50)
[2017-02-12] MEDS ORDERED: PERFLUTREN LIPID MICROSPHERE (DEFINITY) IV ONE (09:27)
[2017-02-12] MEDS ORDERED: LEVOFLOXACIN 750 MG TAB PO SCH (11:00)
[2017-02-12 11:03] LABS: HEMATOCRIT 36.3 % (37-47); MEAN CELL VOLUME 91.4 fL (80-100); MEAN CORPUSCULAR HGB CONC 30.6 g/dl (32-36); MEAN PLATELET VOLUME 10.6 fL (7.4-10.4); PLATELET COUNT 105 K/uL (130-400); RED BLOOD COUNT 3.97 M/uL (4.2-5.4); WHITE BLOOD COUNT 5.71 K/uL (4.8-10.8)
--- NOTE | 2017-02-12 11:10 | ECHOCARDIOGRAM REPORT ---
*NOTICE TO RECEIVING LIBERTARIAN AGENCY This information is strictly Confidential and protected under [place] law. [place] law prohibits you from making any further disclosure of this information unless further disclosure is expressly permitted by the written consent of the person to whom it pertains or is authorized by law. A general authorization for the release of medical or other information is not sufficient for this purpose. Hospital accepts no responsibility if the information is made available to any other person, INCLUDING THE PATIENT. Interpretation Summary * Name: EMILIA ALVARADO Study Date: 02/12/2017 09:09 AM BP: 149/68 mmHg * Patient Location: [facility]\S\N278\S\1 HR: 90 * : 1940 (M/d/yyyy) Gender: Female Height: 65 in * Age: 76 yrs Ethnicity: [place] Weight: 238 lb * Ordering Physician: Jaleel Johansen * Performed By: Alexsandra Caceres * * Reason For Study: FOLLOW UP- PLEURITIC CHEST PAIN, LV FUNCTION * BSA: 2.1 m2 * The study was technically adequate. * Compared to prior study, there is no significant change. * -- Conclusions -- * Ejection Fraction = >70 %. * There is mild concentric left ventricular hypertrophy. * The left atrium is moderately dilated. * The left ventricular wall motion is normal. Procedure Details * A contrast injection of Definity was performed to improve assessment of LV function. * Contrast was injected into an intravenous site in the right arm. * One vial of Definity ultrasound contrast was diluted in normal saline to a total volume of 10 ml. A total of '2' ml of solution was administered during imaging. * Lot # [id number] of Definity utilized for procedure. * Expiration date 02/15. * The attending nurse who injected the contrast agent was MANOHAR TAY RN. * A complete two-dimensional transthoracic echocardiogram was performed (2D, M-mode, Doppler and color flow Doppler). Left Ventricle * The left ventricle is normal in size. * There is no thrombus. * There is mild concentric left ventricular hypertrophy. * Ejection Fraction = >70 %. * Left ventricular systolic function is normal. * The left ventricular wall motion is normal. Right Ventricle * The right ventricle is normal size. * The right ventricular systolic function is normal as assessed by tricuspid annular plane systolic excursion (TAPSE) (normal >1.5 cm). Atria * The left atrium is moderately dilated. * The right atrium is mildly dilated. Mitral Valve * There is moderate mitral annular calcification. * There is no mitral valve stenosis. Tricuspid Valve * The tricuspid valve is normal. * There is no tricuspid stenosis. Aortic Valve * The aortic valve is trileaflet. * Aortic stenosis is absent. Great Vessels * The aortic root is normal size. Pericardium/Pleural * There is no pericardial effusion. Great Vessels * Normal inferior vena cava diameter and respiratory variation suggests normal central venous pressure. Left Ventricular Diastolic Function * Diastolic function not assessed. MMode 2D Measurements and Calculations IVSd 1.3 cm IVSs 2.2 cm LVIDd 4.5 cm LVIDs 2.1 cm LVPWd 1.3 cm LVPWs 2.0 cm IVS/LVPW 1.0 FS 54.2 % EDV(Teich) 93.1 ml ESV(Teich) 13.9 ml EF(Teich) 85.1 % EDV(cubed) 92.0 ml ESV(cubed) 8.9 ml EF(cubed) 90.4 % % IVS thick 64.4 % % LVPW thick 55.9 % LV mass(C)d 226.6 grams LV mass(C)dI 106.4 grams/m\S\2 LV mass(C)s 198.4 grams LV mass(C)sI 93.2 grams/m\S\2 SV(Teich) 79.3 ml SI(Teich) 37.2 ml/m\S\2 SV(cubed) 83.1 ml SI(cubed) 39.0 ml/m\S\2 LVAd ap4 34.7 cm\S\2 LVLd ap4 8.3 cm EDV(MOD-sp4) 119.5 ml EDV(sp4-el) 123.4 ml LVAs ap4 13.3 cm\S\2 LVLs ap4 6.2 cm ESV(MOD-sp4) 25.0 ml ESV(sp4-el) 24.3 ml EF(MOD-sp4) 79.1 % EF(sp4-el) 80.3 % LVAd ap2 28.3 cm\S\2 LVLd ap2 8.1 cm EDV(MOD-sp2) 79.3 ml EDV(sp2-el) 83.6 ml LVAs ap2 11.3 cm\S\2 LVLs ap2 6.3 cm ESV(MOD-sp2) 17.1 ml ESV(sp2-el) 17.1 ml EF(MOD-sp2) 78.5 % EF(sp2-el) 79.5 % LVLd %diff -1.98 % EDV(MOD-bp) 99.0 ml LVLs %diff 2.7 % ESV(MOD-bp) 20.8 ml EF(MOD-bp) 79.0 % SV(MOD-sp4) 94.5 ml SI(MOD-sp4) 44.4 ml/m\S\2 SV(MOD-sp2) 62.2 ml SI(MOD-sp2) 29.2 ml/m\S\2 SV(MOD-bp) 78.2 ml SI(MOD-bp) 36.7 ml/m\S\2 SV(sp4-el) 99.1 ml SI(sp4-el) 46.5 ml/m\S\2 SV(sp2-el) 66.5 ml SI(sp2-el) 31.2 ml/m\S\2
[2017-02-12 11:32] LABS: BUN/CREATININE RATIO 22.8 (10-20); CALCIUM 9.3 mg/dl (8.5-10.1); CREATININE 1.8 mg/dl (0.60-1.20); MAGNESIUM 2.7 mg/dl (1.8-2.4); POTASSIUM 4.5 mmol/L (3.5-5.1)
[2017-02-12 11:46] LABS: BETA-HYDROXYBUTYRATE 0.79 mg/dL (0.2-2.81)
--- NOTE | 2017-02-12 12:07 | Pharmacy Progress Note ---
Glycemic Control: Progress Nt Date of Service Feb 12, 2017. Scope Glycemic Pharmacist consulted by Dr Gibson on 02/09/17 for glycemic control and to write orders per [facility] inpatient glycemic control protocol. Objective Accuchecks BSG (last 24hrs): Test 02/11/17 11:13 02/11/17 16:32 02/11/17 20:54 02/12/17 07:32 Bedside Glucose 287 mg/dl (70-90) 253 mg/dl (70-90) 178 mg/dl (70-90) 277 mg/dl (70-90) Test 02/12/17 10:04 Laboratory Data (last 24hrs) Test 02/12/17 10:04 HbA1c: Test 02/10/17 05:50 Hemoglobin A1c 7.9 % (4.5-5.6) H Recent Pertinent Medications Outpatient Anti-diabetic Regimen: * Lantus 25 units qAM and Lantus 11 units qPM + Novolog 2-8 units before meals as needed The patient is currently receiving: * Basal insulin: Lantus 25 units every 12 hours * Correctional Insulin: Novolog Correction per scale ACHS Goal Range: Low 110 mg/dL - High 140 mg/dL Correction Factor: 15 mg/dL/unit * Prandial insulin: Per carb ratio of 1 unit per 5 grams CHO consumed Risk Factors for Insulin Resistance: * Steroids: Solu-Medrol 40 mg IV q8 hours (received ~6 doses) * Infection: questionable bronchitis on LVQ * Diet: type 2 diabetic diet Assessment & Plan ASSESSMENT: * ADA & AACE recommend a goal blood sugar range 140-180 mg/dl for the majority of critically ill & non-critically ill patients. However, more stringent targets may be selected in individual cases. Will utilize more stringent goal of 110-140 mg/dl based on patient age & comorbidities. Additionally, tighter glycemic control is warranted to facilitate wound/infection healing. * Ms Harp was admitted 02/09/17 for chest pain. She is well known to the glycemic service. She was started on the same amount of Lantus as at home just evenly distributed twice daily. A weight-based stress of 2 correctional factor was started. When steroids were started, the patient's blood sugars elevated significantly. Since she was already tolerating weight-based stress of 2 insulin , the decision was made to increase the Lantus and correctional insulin to weight based stress of 3. Her blood sugars ranged from 178-287 mg/dL yesterday and she received 146 units (up from 76 units the previous day). She received 50 units of basal and 96 of prandial (a 35-65 basal-bolus split). * Today, Ms Harp's fasting blood sugar was 277 mg/dL which was due to the steroids. The correctional insulin was tightened to a correction factor of 12 and a carbohydrate ratio of 4. After breakfast, the steroids were discontinued. Since Solu-Medrol's effects can be seen for up to 24 hours afterwards, weight based stress of 3 correctional insulin was continued after lunch to keep blood sugars controlled/ Lantus was reduced to 18 units BID which is her home dose. Overnight Acchuchecks were added to ensure adequate 24 hour coverage. PLAN FOR INPATIENT GLYCEMIC CONTROL: * DECREASING Lantus to 18units SQ BID * TIGHTEN correction factor to 15 mg/dl/unit * TIGHTEN carb ratio to 1 unit per 5 grams CHO consumed * Continuing goal range of Low 110 mg/dL - High 140 mg/dL * Please note that the plan above was derived based on current level of insulin resistance and hospital stress. These recommendations are appropriate for inpatient admission only. Plan of care upon discharge will need to be reassessed to avoid potential outpatient hypo/hyperglycemia. Thank you.
--- NOTE | 2017-02-12 13:05 | Progress Note ---
Internal Med Progress Note Date of Service: Feb 12, 2017. Provider Documentation: SUBJECTIVE: The patient was seen and examined Has had episodes of confusion yesterday Much better this morning Denies any symptoms OBJECTIVE: Vital Signs-as noted below Exam: General-Moderate distress at rest Eyes-Normal ENT-normal Neck-supple Lungs-Decreased breath sound bilaterally at the bases Occasional wheezing at the bases Heart-Regular,no murmur appreciated Abdomen-Benign,no masses,bowel sound present Extremities-No edema Neuro-AAOx3 Lab data as noted below. ASSESSMENT & PLAN: Delirium Likely secondary to Use of Steroid and Ativan Complicated by UTI Ativan and Steroid have been discontinued Clinically much better this morning Wants to go home Atypical CHEST PAIN Possible related to costochondritis vs Pleuritis chest pain Worsening with cough and deep breathing Need to r/o ACS-Serial Alonzo are unremarkable ,normal EKG Recently saw dr. Do on 02/02 No aspirin given because pt is allergy with aspirin Continue statin and carvedilol Will monitor in telemetry-no arrhythmia Echo done on 01/21/17 showed The qualitative LV ejection fraction is >70% (hyperdynamic). The LV wall thickness is mildly increased (concentric). The left ventricular wall motion is normal. The left ventricular diastolic function is mildly abnormal (grade I). EKG-minimal ST depression in lateral leads Troponin negative Will get Cardiology evaluation with h/o CAD Repeat ECHO;Ejection Fraction = >70 %. * There is mild concentric left ventricular hypertrophy. * The left atrium is moderately dilated. * The left ventricular wall motion is normal. No more cardiac symptoms DYSPNEA ASSOCIATED WITH COUGH Possible related to COPD exacerbation Pt does not look decompensate D-Dimer negative CXR showed Lungs are clear and mild stable cardiomegaly Productive cough with minimal wheezing Continue ANORO and Qvar Will add Levaquin to cover Bronchitis and UTI Will start small dose of Solumedrol as well-discontinued UTI -growing E Coli Fowl smelling Urine Dysuria UA-suggestive of infection Started on Levaquin -dose adjusted Will need Lasix on discharge ACUTE KARLEE ON CKD STAGE 3 Creatine has been fluctuate in the last few months From 0.6 (09/04/16) then increase to--> 1.4--->1.7 On lasix 80 mg BID, will hold it Consider to adjust Lasix dose DM TYPE 2 Recent HBA1c was 6.5 on 10/28/16 Controlled continue current management Pharmacy consulted for glycemic management HTN BP stable On Imdur, carvedilol, Diltiazem Hold Losartan and lasix PAROXYSMAL AFIB Rate is controlled on SNR Continue diltiazem, carvedilol, and imdur On coumadin INR 1.7 Monitor for GI bleed COPD Continue home meds on duoneb treatment MORBID OBESITY Counseling on diet CHRONIC DIASTOLIC CHF On Lasix at home due to chronic diastolic CHF/LE edema, lasix held for now Held diuretic due to KARLEE Monitor fluid status Does not appear to be in CHF Hx GI BLEED Last admisstion was 09/07/16 Hbg 10.6- Stable Monitor for GI bleed since pt is on Coumadin GI PX on Protonix DVT PX on coumadin (INR 1.5) CODE STATUS DNR Disposition Likely to go home today/tomorrow Vital Signs: Date Time Temp Pulse Resp B/P (MAP) Pulse Ox O2 Delivery O2 Flow Rate FiO2 02/12/17 11:17 73 18 99 Room Air 02/12/17 11:06 36.7 70 16 156/73 (100) 98 02/12/17 09:44 154/83 (106) 02/12/17 08:00 98 Room Air 02/12/17 07:19 72 18 98 Room Air 02/12/17 07:18 36.8 71 16 179/95 (123) 96 145/65 (91) 02/12/17 05:03 36.7 87 20 157/83 (107) 97 Nasal Cannula 3.0 02/12/17 04:05 Room Air 02/12/17 00:05 Room Air 02/11/17 23:05 36.5 90 18 193/90 (124) 99 Room Air 02/11/17 20:00 97 Room Air 02/11/17 19:34 81 18 95 Room Air 02/11/17 19:27 36.7 92 22 155/68 (97) 97 Room Air 02/11/17 16:00 97 Room Air 02/11/17 14:51 36.7 97 18 158/83 (108) 97 Room Air Lab Results: Results Past 24 Hours Test 02/11/17 16:32 02/11/17 20:54 02/12/17 07:32 02/12/17 10:23 Range/Units Bedside Glucose 253 178 277 70-90 mg/dl White Blood Count 5.71 4.8-10.8 K/uL Red Blood Count 3.97 4.2-5.4 M/uL Hemoglobin 11.1 12.0-16.0 g/dL Hematocrit 36.3 37-47 % Mean Corpuscular Volume 91.4 80-100 fL Mean Corpuscular Hemoglobin 28.0 25-34 pg Mean Corpuscular Hemoglobin Concent 30.6 32-36 g/dl RDW Standard Deviation 47.3 36.4-46.3 fL RDW Coefficient of Variation 14.2 11.5-14.5 % Platelet Count 105 130-400 K/uL Mean Platelet Volume 10.6 7.4-10.4 fL Sodium Level 140 136-145 mmol/L Potassium Level 4.5 3.5-5.1 mmol/L Chloride Level 107 98-107 mmol/L Carbon Dioxide Level 24 21-32 mmol/L Anion Gap 9.0 3-11 mmol/L Blood Urea Nitrogen 41 7-18 mg/dl Creatinine 1.80 0.60-1.20 mg/dl Est Creatinine Clear Calc Drug Dose 31.4 ml/min Estimated GFR () 30.7 Estimated GFR (Non- 26.5 BUN/Creatinine Ratio 22.8 10-20 Random Glucose 328 70-99 mg/dl Calcium Level 9.3 8.5-10.1 mg/dl Magnesium Level 2.7 1.8-2.4 mg/dl Beta-Hydroxybutyric Acid 0.79 0.2-2.81 mg/dL Test 02/12/17 11:31 Range/Units Bedside Glucose 286 70-90 mg/dl
[2017-02-12] MEDS: WARFARIN SOD 2 MG TAB PO SCH (15:26)
[2017-02-12] MEDS: LOVASTATIN 20 MG TAB PO SCH (20:52)
[2017-02-12] MEDS ORDERED: INSULIN GLARGINE SOLOSTAR 100 UNITS/ML 3 ML PEN SC SCH (21:00)
[2017-02-13] VITALS (12 sets, daily range): BP systolic 124–168; BP diastolic 59–83; PULSE 62–87; TEMP 36.3–36.4; O2SAT 94–98
[2017-02-13] MEDS: INSULIN ASPART 100 UNITS/ML 3 ML PEN SC SCH ×4 (04:00→12:14)
[2017-02-13] MEDS: GUAIFENESIN SUGAR FREE 100 MG/5 ML UDC PO PRN (04:11)
[2017-02-13] MEDS: ALBUT/IPRATROP 3MG/0.5MG NEB 3 ML VIAL INH SCH ×2 (07:18→11:16)
[2017-02-13] MEDS: CALCITRIOL 0.25 MCG CAP PO SCH (08:05)
[2017-02-13] MEDS: BECLOMETHASONE HFA 40 MCG INHALER INH SCH (08:05)
[2017-02-13] MEDS: METOPROLOL SUCC 25MG EXT REL TAB PO SCH (08:06)
[2017-02-13] MEDS: PANTOprazole SOD 40 MG TAB PO SCH (08:09)
[2017-02-13] MEDS: ISOSORBIDE MONONITRATE 60 MG TABCR PO SCH (08:09)
[2017-02-13] MEDS: DILTIAZEM HCL 120 MG CAPCR PO SCH (08:09)
[2017-02-13] MEDS: FERROUS SULFATE 325 MG TAB PO SCH (08:09)
--- NOTE | 2017-02-13 08:33 | DIAGNOSTIC IMAGING REPORT ---
CHEST 2 VIEWS ROUTINE CLINICAL HISTORY: pneumonia COMPARISON STUDY: 02/09/2017 FINDINGS: The cardiac and mediastinal contours remain stable. There is no failure. There is no lobar consolidation. There are slightly prominent markings the right medial lung base. There is suspected mild peribronchial thickening. IMPRESSION: Mild peribronchial thickening with the right lower lobe. No evidence of lobar consolidation. No evidence of failure. Electronically signed by: Romeo Covarrubias M.D. 02/13/2017 8:32 AM Dictated Date/Time: 02/13/2017 8:31 AM
[2017-02-13] MEDS ORDERED: INSULIN GLARGINE SOLOSTAR 100 UNITS/ML 3 ML PEN SC ONE (09:00)
--- NOTE | 2017-02-13 10:10 | Progress Note ---
Internal Med Progress Note Date of Service: Feb 13, 2017. Provider Documentation: SUBJECTIVE: The patient was seen and examined Has had episodes of confusion on 02/11 Much better now Denies any symptoms but says exhausted OBJECTIVE: Vital Signs-as noted below Exam: General-Moderate distress at rest Eyes-Normal ENT-normal Neck-supple Lungs-Decreased breath sound bilaterally at the bases No wheezing and or crackles Heart-Regular,no murmur appreciated Abdomen-Benign,no masses,bowel sound present Extremities-No edema Neuro-AAOx3 Lab data as noted below. ASSESSMENT & PLAN: Delirium-resolved Likely secondary to Use of Steroid and Ativan Complicated by UTI Ativan and Steroid have been discontinued Clinically much better this morning Likely to go home this afternoon Atypical CHEST PAIN Possible related to costochondritis vs Pleuritis chest pain Worsening with cough and deep breathing Need to r/o ACS-Serial Alonzo are unremarkable ,normal EKG Recently saw dr. Do on 02/02 No aspirin given because pt is allergy with aspirin Continue statin and carvedilol Will monitor in telemetry-no arrhythmia Echo done on 01/21/17 showed The qualitative LV ejection fraction is >70% (hyperdynamic). The LV wall thickness is mildly increased (concentric). The left ventricular wall motion is normal. The left ventricular diastolic function is mildly abnormal (grade I). EKG-minimal ST depression in lateral leads Troponin negative Will get Cardiology evaluation with h/o CAD Repeat ECHO;Ejection Fraction = >70 %. * There is mild concentric left ventricular hypertrophy. * The left atrium is moderately dilated. * The left ventricular wall motion is normal. No more cardiac symptoms Repeat CXR this morning-may have early developing Pneumonia/Pneumonitis right lower lobe DYSPNEA ASSOCIATED WITH COUGH Possible related to COPD exacerbation Pt does not look decompensate D-Dimer negative CXR showed Lungs are clear and mild stable cardiomegaly Productive cough with minimal wheezing Continue ANORO and Qvar Will add Levaquin to cover Bronchitis and UTI Will start small dose of Solumedrol as well-discontinued 2 steps before discharge UTI -growing E Coli Fowl smelling Urine Dysuria UA-suggestive of infection Started on Levaquin -dose adjusted Continue Levaquin for 10 days in total ACUTE KARLEE ON CKD STAGE 3 Creatine has been fluctuate in the last few months From 0.6 (09/04/16) then increase to--> 1.4--->1.7 On lasix 80 mg BID, is on hold Consider to adjust Lasix dose will restart on discharge DM TYPE 2 Recent HBA1c was 6.5 on 10/28/16 Controlled continue current management Pharmacy consulted for glycemic management HTN BP stable On Imdur, carvedilol, Diltiazem Hold Losartan and lasix PAROXYSMAL AFIB Rate is controlled on SNR Continue diltiazem, carvedilol, and imdur On coumadin INR 1.7 Monitor for GI bleed COPD Continue home meds on duoneb treatment MORBID OBESITY Counseling on diet CHRONIC DIASTOLIC CHF On Lasix at home due to chronic diastolic CHF/LE edema, lasix held for now Held diuretic due to KARLEE Monitor fluid status Does not appear to be in CHF Hx GI BLEED Last admisstion was 09/07/16 Hbg 10.6- Stable Monitor for GI bleed since pt is on Coumadin GI PX on Protonix DVT PX on coumadin (INR 1.5) CODE STATUS DNR Disposition Likely to go home today Vital Signs: Date Time Temp Pulse Resp B/P (MAP) Pulse Ox O2 Delivery O2 Flow Rate FiO2 02/13/17 08:01 73 147/81 (103) 02/13/17 08:00 96 Room Air 02/13/17 07:18 62 16 98 Room Air 02/13/17 06:53 36.3 72 22 154/68 (96) 97 Nasal Cannula 2.0 02/13/17 04:10 36.4 70 18 168/83 (111) 94 Room Air 02/13/17 04:00 98 Room Air 3.0 02/13/17 00:00 98 Room Air 3.0 02/12/17 23:40 36.8 91 20 145/87 (106) 94 Room Air 02/12/17 20:22 75 16 96 Room Air 02/12/17 20:00 98 Room Air 3.0 02/12/17 19:27 36.4 73 18 168/64 (98) 98 Room Air 02/12/17 15:55 79 18 98 Room Air 02/12/17 15:45 Room Air 02/12/17 14:32 36.8 70 20 119/65 (83) 98 Room Air 02/12/17 12:00 99 Room Air 02/12/17 11:17 73 18 99 Room Air 6/15/17 11:06 36.7 70 16 156/73 (100) 98 Lab Results: Results Past 24 Hours Test 02/12/17 10:23 02/12/17 11:31 02/12/17 15:54 02/12/17 20:07 Range/Units White Blood Count 5.71 4.8-10.8 K/uL Red Blood Count 3.97 4.2-5.4 M/uL Hemoglobin 11.1 12.0-16.0 g/dL Hematocrit 36.3 37-47 % Mean Corpuscular Volume 91.4 80-100 fL Mean Corpuscular Hemoglobin 28.0 25-34 pg Mean Corpuscular Hemoglobin Concent 30.6 32-36 g/dl RDW Standard Deviation 47.3 36.4-46.3 fL RDW Coefficient of Variation 14.2 11.5-14.5 % Platelet Count 105 130-400 K/uL Mean Platelet Volume 10.6 7.4-10.4 fL Sodium Level 140 136-145 mmol/L Potassium Level 4.5 3.5-5.1 mmol/L Chloride Level 107 98-107 mmol/L Carbon Dioxide Level 24 21-32 mmol/L Anion Gap 9.0 3-11 mmol/L Blood Urea Nitrogen 41 7-18 mg/dl Creatinine 1.80 0.60-1.20 mg/dl Est Creatinine Clear Calc Drug Dose 31.4 ml/min Estimated GFR () 30.7 Estimated GFR (Non- 26.5 BUN/Creatinine Ratio 22.8 10-20 Random Glucose 328 70-99 mg/dl Calcium Level 9.3 8.5-10.1 mg/dl Magnesium Level 2.7 1.8-2.4 mg/dl Beta-Hydroxybutyric Acid 0.79 0.2-2.81 mg/dL Bedside Glucose 286 99 146 70-90 mg/dl Test 02/13/17 00:07 02/13/17 04:55 02/13/17 07:38 Range/Units Bedside Glucose 110 101 81 70-90 mg/dl
[2017-02-13] MEDS ORDERED: FUROSEMIDE 80 MG TAB PO ONE (10:30)
--- NOTE | 2017-02-13 13:05 | Pharmacy Progress Note ---
Glycemic Control: Progress Nt Date of Service Feb 13, 2017. Scope Glycemic Pharmacist consulted by Dr Gibson on 02/09/17 for glycemic control and to write orders per [facility] inpatient glycemic control protocol. Objective Accuchecks BSG (last 24hrs): Test 02/12/17 15:54 02/12/17 20:07 02/13/17 00:07 02/13/17 04:55 Bedside Glucose 99 mg/dl (70-90) 146 mg/dl (70-90) 110 mg/dl (70-90) 101 mg/dl (70-90) Test 02/13/17 07:38 02/13/17 11:22 Bedside Glucose 81 mg/dl (70-90) 122 mg/dl (70-90) HbA1c: Test 02/10/17 05:50 Hemoglobin A1c 7.9 % (4.5-5.6) H Recent Pertinent Medications Outpatient Anti-diabetic Regimen: * Lantus 25 units qAM and Lantus 11 units qPM + Novolog 2-8 units before meals as needed The patient is currently receiving: * Basal insulin: Lantus 25 units in morning and 18 units in the evening * Correctional Insulin: Novolog Correction per scale ACHS Goal Range: Low 110 mg/dL - High 140 mg/dL Correction Factor: 15 mg/dL/unit * Prandial insulin: Per carb ratio of 1 unit per 5 grams CHO consumed Risk Factors for Insulin Resistance: * Steroids: Solu-Medrol discontinued 02/12/17 after 6 doses * Infection: questionable bronchitis on LVQ * Diet: type 2 diabetic diet Assessment & Plan ASSESSMENT: * ADA & AACE recommend a goal blood sugar range 140-180 mg/dl for the majority of critically ill & non-critically ill patients. However, more stringent targets may be selected in individual cases. Will utilize more stringent goal of 110-140 mg/dl based on patient age & comorbidities. Additionally, tighter glycemic control is warranted to facilitate wound/infection healing. * Ms Harp was admitted 02/09/17 for chest pain. She is well known to the glycemic service. She was started on the same amount of Lantus as at home just evenly distributed twice daily. A weight-based stress of 2 correctional factor was started. When steroids were started, the patient's blood sugars elevated significantly. Since she was already tolerating weight-based stress of 2 insulin , the decision was made to increase the Lantus and correctional insulin to weight based stress of 3. After the steroids were discontinued, the Lantus dose was decreased to her home regimen and Novolog was loosened slightly. * Today, Ms Harp's fasting blood sugar was 81 mg/dL. She received 96 units of insulin yesterday (down from 146 units the day prior) and blood sugars ranged from 99-286 mg/dL. A reduced Lantus dose was given this morning because the patient was slightly basal heavy from the previous day. Novolog was further loosened to parameters from before steroids were started. PLAN FOR INPATIENT GLYCEMIC CONTROL: * DECREASING Lantus to 18units SQ BID * LOOSEN correction factor to 20 mg/dl/unit * LOOSEN carb ratio to 1 unit per 7 grams CHO consumed * Continuing goal range of Low 110 mg/dL - High 140 mg/dL DISCHARGE RECOMMENDATIONS * Patient's A1C is slightly elevated above goal (~7.5%). May titrate insulin to goal blood sugars. Thank you.
[2017-02-13 14:55] LABS: PROTHROMBIN TIME (PATIENT) 21.7 SECONDS (9.0-12.0)
[2017-02-13] MEDS: WARFARIN SOD 4 MG TAB PO SCH (15:32)
[2017-02-13] MEDS ORDERED: LVQ750 PO (16:14)
[2017-02-13] MEDS ORDERED: LCTX PO (16:14)
--- NOTE | 2017-02-13 16:17 | Discharge Instructions ---
Discharge Instructions Date of Service Feb 13, 2017. Admission Reason for Admission: Chest Pain Discharge Discharge Diagnosis / Problem: UTI,SOB,Atypical Chest pain Discharge Goals Goal(s): Prevent Disease Progression Activity Recommendations Activity Limitations: resume your previous activity . Instructions / Follow-Up Instructions / Follow-Up Dr Waterman on 02/18/17 at 9:35 AM.Please keep follow up appointment with Coagulation Clinic and cardiology Current Hospital Diet Patient's current hospital diet: Diabetes Type 2 Diet, AHA Diet (Heart Healthy) , Low Sodium Diet (2gm Na) Discharge Diet Recommended Diet: AHA Diet (Heart Healthy), Diabetes Type 2 Diet Fluid Restriction: 1500 ml (6 cups) Pending Studies Studies pending at discharge: no Laboratory Results Hemoglobin A1c Test 02/10/17 05:50 Range/Units Estimated Average Glucose 180 mg/dl Hemoglobin A1c 7.9 H 4.5-5.6 % Medical Emergencies . Who to Call and When: Medical Emergencies: If at any time you feel your situation is an emergency, please call 911 immediately. . Non-Emergent Contact Non-Emergency issues call your: Primary Care Provider . Past History Medical & Surgical History: (1) Atypical chest pain (2) Anxiety attack (3) Chronic kidney disease (4) Hyperlipidemia (5) Diabetes mellitus, type II (6) Hypertension (7) COPD (chronic obstructive pulmonary disease) (8) History of total left hip arthroplasty (9) History of appendectomy (10) H/O heart artery stent (11) Hx of removal of ovary . "Provider Documentation" section prepared by Jan Pacheco. . VTE Core Measure Inpt VTE Proph given/why not?: Warfarin (Coumadin)
--- NOTE | 2017-02-14 08:17 | Discharge Summary ---
Discharge Summary Date of Service Feb 14, 2017. Discharge Summary Admission Date: Feb 09, 2017 at 09:51 Discharge Date: Feb 13, 2017 Discharge Disposition: Home Principal Diagnosis: UTI,SOB,Atypical Chest pain Secondary Diagnoses/Problems: Please see H&P and Hospital Progress note Consultations: Cardiology Medication Reconciliation New Medications: Lactobacillus Acidophilus (Lactinex) Tab 2 TAB PO BID, #30 TAB Levofloxacin (Levofloxacin) 750 Mg Tab 750 MG PO Q2D@1100 for 6 Days, #3 TAB Continued Medications: Beclomethasone Dipropionate (N (Qnasl Childrens) 40 Mcg/Act Spr 1 PUFF INH BID Calcitriol (Rocaltrol) 0.5 Mcg Cap 0.5 MCG PO DAILY Diltiazem Hcl Coated Beads (Diltiazem Hcl Er) 120 Mg Cap 120 MG PO DAILY Ferrous Sulfate (Ferrous Sulfate) 325 Mg Tab 325 MG PO DAILY Furosemide (Lasix) 80 Mg Tab 80 MG PO DAILY Glucose-Vitamin C (Glucose) 1 Chw Chw 1 TAB PO UD PRN for LOW SUGAR Home O2 Therapy (Oxygen) Gas LITERS NA QPM Insulin Aspart (Novolog) 100 Units/Ml Inj SLIDING SCALE Insulin Glargine (Lantus) 100 Unit/Ml Inj 25 UNITS SQ QAM, VIAL Insulin Glargine (Lantus) 100 Unit/Ml Inj 11 UNITS SQ EVENING MEAL, VIAL Isosorbide Mononitrate (Isosorbide Mononitrate ER) 60 Mg Tab 60 MG PO DAILY Levalbuterol Hcl (Levalbuterol Hcl) 1.25 Mg/3 Ml Neb 3 ML INH Q4 PRN for SOB/Wheezing Losartan Potassium (Cozaar) 100 Mg Tab 0.5 MG PO DAILY, TAB Lovastatin (Mevacor) 40 Mg Tab 80 MG PO HS 2 TABLETS AT BEDTIME Metoprolol Succinate (Metoprolol Succinate ER) 25 Mg Tabcr 12.5 MG PO DAILY, #15 Nitroglycerin (Nitrostat) 0.4 Mg Sub 0.4 MG UT PRN PRN for Chest Pain, BTL Omeprazole (Omeprazole) 20 Mg Tab 20 MG PO DAILY Solifenacin (Vesicare) 5 Mg Tab 5 MG PO DAILY, TAB Umeclidinium-Vilanterol (Anoro Ellipta 62.5-25 Mcg/INH) 1 Aer Aer 1 PUFF INH DAILY Warfarin Sod (Jantoven) 4 Mg Tab 4 MG PO 5XWK THU, , THU, THU, SAT Warfarin Sodium (Coumadin) 2 Mg Tab 1 TAB PO 2XWK 1/2 OF A 4MG ON MONDAYS AND THURSDAYS. Admission Information HPI (per Admitting provider): 76 year old female with PMH of diabetes, COD hyperlipidemia, CKD satge 3, HTN, P. AFIB, Obesity, Diastolic dysfunction, presents to the Emergency Room with complaints of Left sided chest pain associated with shortness of breath. Pt said that she has been coughing a lot for the last 2 days. She said that this morning she woke up with chest pain that is worsening with coughing. She said that the cough is associated with whitish thick sputum. Pt said that the pain is non radiating, reproducible with pressure, grade 8/10. She said that it is more like an achy chest discomfort. Pt said that her SOB worst when she is lying flat down. She also said that in the last few days she has been having SOB on exertion. She also complaint of LLE tenderness. She recently saw her cardiology Dr. Do on 02/02/17 for intermittent mid sternal and right sided chest pain. Dr. Do said that the pain was non cardiac etiology. She had an ECHO done on 01/21/17 that showed normal wall motion. Currently she denies any chest pain. she said that she is coughing less now. Pt said that her chest pain was better before she was given the nitro. Denies any palpitation, dizziness, fever, weakness. Past Medical/Surgical History Medical Problems: (1) Asthma Status: Chronic (2) C. difficile colitis Status: Resolved (3) Chronic kidney disease Status: Chronic (4) COPD (chronic obstructive pulmonary disease) Status: Chronic (5) CVA (cerebral vascular accident) Status: Chronic (6) Diabetes mellitus, type II Status: Chronic (7) Diabetic peripheral neuropathy associated with type 2 diabetes mellitus Status: Chronic (8) Gastroparesis Status: Chronic (9) GERD (gastroesophageal reflux disease) Status: Chronic (10) History of coronary artery disease Status: Chronic (11) Hyperlipidemia Status: Chronic (12) Hypertension Status: Chronic (13) Pulmonary embolism Status: Chronic Surgical Problems: (1) H/O heart artery stent Permanent Comment: [facility] ([facility] Stent) Status: Resolved (2) History of appendectomy Status: Resolved (3) History of total left hip arthroplasty Status: Resolved (4) Hx of removal of ovary Permanent Comment: R side Status: Resolved Family History FHx: heart disease Social History Smoking Status: Never Smoker Alcohol Use: none Drug Use: none Marital Status: Housing status: lives alone Occupational Status: retired Immunizations History of Influenza Vaccine: N/A Influenza Vaccine Date: May 06, 2013 History of Tetanus Vaccine?: utd History of Pneumococcal: Yes Pneumococcal Date: January 02, 2003 History of Hepatitis B Vaccine: No Multi-Drug Resistant Organisms History of MDRO: No Allergies Coded Allergies: Acetaminophen (Verified Allergy, Unknown, UNKNOWN, 01/06/17) INFO FROM PT Codeine (Verified Allergy, Unknown, UNKNOWN, 01/06/17) INFO FROM PT Aspirin (Verified Adverse Reaction, Intermediate, (ULCER), 01/06/17) Venlafaxine (Verified Adverse Reaction, Intermediate, DROWINESS/ CONFUSION , 01/06/17) Cephalexin (Verified Adverse Reaction, Mild, DROWSINESS, UNABLE TO DRIVE, UPSET STOMACH, 01/06/17) Oxycodone (Verified Adverse Reaction, Mild, n/v, 01/06/17) gmg Home Medications Scheduled Beclomethasone Dipropionate (N (Qnasl Childrens), 1 PUFF INH BID Calcitriol (Rocaltrol), 0.5 MCG PO DAILY Diltiazem Hcl Coated Beads (Diltiazem Hcl Er), 120 MG PO DAILY Ferrous Sulfate (Ferrous Sulfate), 325 MG PO DAILY Furosemide (Lasix), 80 MG PO BID Home O2 Therapy (Oxygen), LITERS NA QPM Insulin Glargine (Lantus), 25 UNITS SQ QAM Insulin Glargine (Lantus), 11 UNITS SQ EVENING MEAL Isosorbide Mononitrate (Isosorbide Mononitrate ER), 60 MG PO DAILY Losartan Potassium (Cozaar), 0.5 MG PO DAILY Lovastatin (Mevacor), 80 MG PO HS Metoprolol Succinate (Metoprolol Succinate ER), 12.5 MG PO DAILY Omeprazole (Omeprazole), 20 MG PO DAILY Solifenacin (Vesicare), 5 MG PO DAILY Umeclidinium-Vilanterol (Anoro Ellipta 62.5-25 Mcg/INH), 1 PUFF INH DAILY Warfarin Sod (Jantoven), 4 MG PO 5XWK Warfarin Sodium (Coumadin), 1 TAB PO 2XWK Scheduled PRN Glucose-Vitamin C (Glucose), 1 TAB PO UD PRN for LOW SUGAR Levalbuterol Hcl (Levalbuterol Hcl), 3 ML INH Q4 PRN for SOB/Wheezing Nitroglycerin (Nitrostat), 0.4 MG UT PRN PRN for Chest Pain Miscellaneous Medications Insulin Aspart (Novolog) Review of Systems Constitutional: No fever, No weight loss, No weakness Eyes: No worsening of vision, No eye pain ENT: No hearing loss, No unusual epistaxis, No trouble swallowing Respiratory: + cough, + sputum, + dyspnea on exertion Cardiovascular: + chest pain, + orthopnea, + edema, No palpitations Abdomen: No pain, No nausea, No vomiting Musculoskeletal: + swelling Genitourinary - Female: No dysuria, No urinary frequency Neurologic: No memory loss, No paralysis, No weakness Psychiatric: No substance abuse Endocrine: No excessive thirst Hematologic / Lymphatic: No night sweats Integumentary: No rash, No itch Physical Ex - H&P Physical Exam Vital Signs Date Time Temp Pulse Resp B/P (MAP) Pulse Ox O2 Delivery O2 Flow Rate FiO2 02/09/17 10:53 77 164/51 02/09/17 09:40 80 22 167/54 100 Nasal Cannula 2.0 02/09/17 08:45 72 24 197/66 99 Room Air 02/09/17 08:45 100 Nasal Cannula 2.0 02/09/17 08:11 72 02/09/17 08:10 99 Room Air 02/09/17 08:10 36.7 81 24 162/116 99 Room Air 02/09/17 08:10 99 Room Air General Appearance: WD/WN, + mild distress Head: normocephalic, atraumatic Eyes: normal inspection, PERRL, EOMI ENT: hearing grossly normal Neck: supple, no JVD Respiratory/Chest: lungs clear, + respiratory distress (Mild ) Cardiovascular: regular rate, rhythm, no JVD Abdomen/GI: normal bowel sounds, non tender, soft Back: normal inspection, no CVA tenderness Extremities/Musculoskelatal: + pertinent finding (+edema, Tenderness in the left leg) Neurologic/Psych: soa integration developer II-XII nml as tested, no motor/sensory deficits, alert, oriented x 3 Skin: warm/dry, no rash Diagnostics - H&P Diagnostics Laboratory Results Results Past 24 Hours Test 02/09/17 08:20 02/09/17 08:26 02/09/17 11:43 Range/Units White Blood Count 3.60 4.8-10.8 K/uL Red Blood Count 3.64 4.2-5.4 M/uL Hemoglobin 10.6 12.0-16.0 g/dL Hematocrit 32.9 37-47 % Mean Corpuscular Volume 90.4 80-100 fL Mean Corpuscular Hemoglobin 29.1 25-34 pg Mean Corpuscular Hemoglobin Concent 32.2 32-36 g/dl Platelet Count 91 130-400 K/uL Mean Platelet Volume 9.6 7.4-10.4 fL Neutrophils (%) (Auto) 43.3 % Lymphocytes (%) (Auto) 44.7 % Monocytes (%) (Auto) 9.2 % Eosinophils (%) (Auto) 2.2 % Basophils (%) (Auto) 0.3 % Neutrophils # (Auto) 1.56 1.4-6.5 K/uL Lymphocytes # (Auto) 1.61 1.2-3.4 K/uL Monocytes # (Auto) 0.33 0.11-0.59 K/uL Eosinophils # (Auto) 0.08 0-0.5 K/uL Basophils # (Auto) 0.01 0-0.2 K/uL RDW Standard Deviation 46.4 36.4-46.3 fL RDW Coefficient of Variation 13.9 11.5-14.5 % Immature Granulocyte % (Auto) 0.3 % Immature Granulocyte # (Auto) 0.01 0.00-0.02 K/uL Platelet Estimate DECREASED Prothrombin Time 18.3 9.0-12.0 SECONDS Prothromb Time International Ratio 1.7 0.9-1.1 Activated Partial Thromboplast Time 30.7 21.0-31.0 SECONDS Partial Thromboplastin Ratio 1.2 D-Dimer 320 0-500 ug/L FEU Sodium Level 143 136-145 mmol/L Potassium Level 3.5 3.5-5.1 mmol/L Chloride Level 104 98-107 mmol/L Carbon Dioxide Level 27 21-32 mmol/L Anion Gap 12.0 3-11 mmol/L Blood Urea Nitrogen 31 7-18 mg/dl Creatinine 1.90 0.60-1.20 mg/dl Est Creatinine Clear Calc Drug Dose 30.3 ml/min Estimated GFR () 28.8 Estimated GFR (Non- 24.8 BUN/Creatinine Ratio 16.5 10-20 Random Glucose 137 70-99 mg/dl Calcium Level 9.3 8.5-10.1 mg/dl Total Bilirubin 0.6 0.2-1 mg/dl Aspartate Amino Transf (AST/SGOT) 15 15-37 U/L Alanine Aminotransferase (ALT/SGPT) 16 12-78 U/L Alkaline Phosphatase 105 45-117 U/L Troponin I < 0.015 0-0.045 ng/ml Total Protein 6.4 6.4-8.2 gm/dl Albumin 3.2 3.4-5.0 gm/dl Globulin 3.2 2.5-4.0 gm/dl Albumin/Globulin Ratio 1.0 0.9-2 Bedside Troponin I < 0.030 0-0.045 ng/ml Bedside Glucose 192 70-90 mg/dl Diagnostic Radiology CHEST ONE VIEW PORTABLE CLINICAL HISTORY: shortness of breath dyspnea COMPARISON STUDY: 09/12/2016 FINDINGS: Lungs are clear. Mild stable cardiomegaly. Diaphragms are smooth. IMPRESSION: Mild stable cardiomegaly. Otherwise negative study Impression - H&P Impression Assessment and Plan CHEST PAIN Possible related to costochondritis vs Pleuritis chest pain Worsening with cough and deep breathing Need to r/o ACS Recently saw dr. Do on 02/02 Troponin negative, EKG did not show any ischemic changes Follow up CM Repeat EKG in AM No aspirin given because pt is allergy with aspirin Continue statin and carvedilol Consider cardiology consult if troponin trending up Will monitor in telemetry Echo done on 01/21/17 showed The qualitative LV ejection fraction is >70% (hyperdynamic). The LV wall thickness is mildly increased (concentric). The left ventricular wall motion is normal. The left ventricular diastolic function is mildly abnormal (grade I). DYSPNEA ASSOCIATED WITH COUGH Possible related to COPD exacerbation Pt does not look decompensate D-Dimer negative CXR showed Lungs are clear and mild stable cardiomegaly No wheezing on exam will start on Tessalon perles Check BNP in am Duoneb treatment Continue ANORO and Qvar ACUTE KARLEE ON CKD STAGE 3 Creatine has been fluctuate in the last few months From 0.6 (09/04/16) then increase to--> 1.4--->1.7 Creatine on admission 1.9 Will hold losartan On lasix 80 mg BID, will hold it Consider to adjust lasix dose does not look overlook decompensated DM TYPE 2 Recent HBA1c was 6.5 on 10/28/16 Controlled continue current management Pharmacy consulted for glycemic management Insulin coverage HTN BP stable On Imdur, carvedilol, Diltiazem Hold Losartan and lasix PAROXYSMAL AFIB Rate is controlled on SNR Continue diltiazem, carvedilol, and imdur On coumadin INR 1.7 Monitor for GI bleed COPD Continue home meds on duoneb treatment MORBID OBESITY Counseling on diet CHRONIC DIASTOLIC CHF On Lasix at home due to chronic diastolic CHF/LE edema, lasix held for now Held diuretic due to KARLEE Monitor fluid status Does not appear to be in CHF Hx GI BLEED Last admisstion was 09/07/16 Hbg 10.6- Stable Monitor for GI bleed since pt is on coumadin GI PX on Protonix DVT PX on coumadin (INR 1.7) CODE STATUS DNR Level of Care Telemetry Resuscitation Status DO NOT RESUSCITATE VTE Prophylaxis VTE Risk Assessment Done? Y/N: Yes Risk Level: Moderate Given or contraindicated: Warfarin (Coumadin) Physical Exam (per Admitting): General Appearance: WD/WN, + mild distress Head: normocephalic, atraumatic Eyes: normal inspection, PERRL, EOMI ENT: hearing grossly normal Neck: supple, no JVD Respiratory/Chest: lungs clear, + respiratory distress (Mild ) Cardiovascular: regular rate, rhythm, no JVD Abdomen/GI: normal bowel sounds, non tender, soft Back: normal inspection, no CVA tenderness Extremities/Musculoskelatal: + pertinent finding (+edema, Tenderness in the left leg) Neurologic/Psych: soa integration developer II-XII nml as tested, no motor/sensory deficits, alert , oriented x 3 Skin: warm/dry, no rash Hospital Course Delirium-resolved Likely secondary to Use of Steroid and Ativan Complicated by UTI Ativan and Steroid have been discontinued Clinically much better this morning Likely to go home this afternoon Atypical CHEST PAIN Possible related to costochondritis vs Pleuritis chest pain Worsening with cough and deep breathing Need to r/o ACS-Serial Alonzo are unremarkable ,normal EKG Recently saw dr. Do on 02/02 No aspirin given because pt is allergy with aspirin Continue statin and carvedilol Will monitor in telemetry-no arrhythmia Echo done on 01/21/17 showed The qualitative LV ejection fraction is >70% (hyperdynamic). The LV wall thickness is mildly increased (concentric). The left ventricular wall motion is normal. The left ventricular diastolic function is mildly abnormal (grade I). EKG-minimal ST depression in lateral leads Troponin negative Will get Cardiology evaluation with h/o CAD Repeat ECHO;Ejection Fraction = >70 %. * There is mild concentric left ventricular hypertrophy. * The left atrium is moderately dilated. * The left ventricular wall motion is normal. No more cardiac symptoms Repeat CXR this morning-may have early developing Pneumonia/Pneumonitis right lower lobe DYSPNEA ASSOCIATED WITH COUGH Possible related to COPD exacerbation Pt does not look decompensate D-Dimer negative CXR showed Lungs are clear and mild stable cardiomegaly Productive cough with minimal wheezing Continue ANORO and Qvar Will add Levaquin to cover Bronchitis and UTI Will start small dose of Solumedrol as well-discontinued 2 steps before discharge UTI -growing E Coli Fowl smelling Urine Dysuria UA-suggestive of infection Started on Levaquin -dose adjusted Continue Levaquin for 10 days in total ACUTE KARLEE ON CKD STAGE 3 Creatine has been fluctuate in the last few months From 0.6 (09/04/16) then increase to--> 1.4--->1.7 On lasix 80 mg BID, is on hold Consider to adjust Lasix dose will restart on discharge DM TYPE 2 Recent HBA1c was 6.5 on 10/28/16 Controlled continue current management Pharmacy consulted for glycemic management HTN BP stable On Imdur, carvedilol, Diltiazem Hold Losartan and lasix PAROXYSMAL AFIB Rate is controlled on SNR Continue diltiazem, carvedilol, and imdur On coumadin INR 1.7 Monitor for GI bleed COPD Continue home meds on duoneb treatment MORBID OBESITY Counseling on diet CHRONIC DIASTOLIC CHF On Lasix at home due to chronic diastolic CHF/LE edema, lasix held for now Held diuretic due to KARLEE Monitor fluid status Does not appear to be in CHF Hx GI BLEED Last admisstion was 09/07/16 Hbg 10.6- Stable Monitor for GI bleed since pt is on Coumadin GI PX on Protonix DVT PX on coumadin (INR 1.5) CODE STATUS DNR Disposition Likely to go home today Total time spent on discharge = 35 minutes This includes examination of the patient, discharge planning, medication reconciliation, and communication with other providers. Discharge Instructions Date of Service Feb 13, 2017. Admission Reason for Admission: Chest Pain Discharge Discharge Diagnosis / Problem: UTI,SOB,Atypical Chest pain Discharge Goals Goal(s): Prevent Disease Progression Activity Recommendations Activity Limitations: resume your previous activity . Instructions / Follow-Up Instructions / Follow-Up Dr Waterman on 02/18/17 at 9:35 AM.Please keep follow up appointment with [facility]agulation [facility] and cardiology Current Hospital Diet Patient's current hospital diet: Diabetes Type 2 Diet, AHA Diet (Heart Healthy) , Low Sodium Diet (2gm Na) Discharge Diet Recommended Diet: AHA Diet (Heart Healthy), Diabetes Type 2 Diet Fluid Restriction: 1500 ml (6 cups) Pending Studies Studies pending at discharge: no Laboratory Results Hemoglobin A1c Test 02/10/17 05:50 Range/Units Estimated Average Glucose 180 mg/dl Hemoglobin A1c 7.9 H 4.5-5.6 % Medical Emergencies . Who to Call and When: Medical Emergencies: If at any time you feel your situation is an emergency, please call 911 immediately. . Non-Emergent Contact Non-Emergency issues call your: Primary Care Provider . Past History Medical & Surgical History: (1) Atypical chest pain (2) Anxiety attack (3) Chronic kidney disease (4) Hyperlipidemia (5) Diabetes mellitus, type II (6) Hypertension (7) COPD (chronic obstructive pulmonary disease) (8) History of total left hip arthroplasty (9) History of appendectomy (10) H/O heart artery stent (11) Hx of removal of ovary . "Provider Documentation" section prepared by Jan Pacheco. . VTE Core Measure Inpt VTE Proph given/why not?: Warfarin (Coumadin) <Electronically signed by Jan Pacheco M.D.> Additional Copies To Kerry Waterman D.O.
[2017-02-14] MEDS ORDERED: FUROSEMIDE 80 MG TAB PO SCH (09:00)
== END 2017-02-13 16:53 | disposition home or self-care (01) ==
LOC: EDBD 08:03 → C.EDB 08:05 → C.MED 09:51 → EDBEDREQ 09:56 → ENRESERV 10:21
PROVIDERS: ADMIT Internal Medicine; ATTEND Internal Medicine
DX: N39.0 Urinary tract infection, site not specified (principal); R06.02 Shortness of breath; E11.22 Type 2 diabetes mellitus with diabetic chronic kidney disease; N18.3 Chronic kidney disease, stage 3 (moderate); I12.9 Hypertensive chronic kidney disease with stage 1 through stage 4 chronic kidney disease, or unspecified chronic kidney disease; E66.9 Obesity, unspecified; I48.0 Paroxysmal atrial fibrillation; K21.9 Gastro-esophageal reflux disease without esophagitis; I25.10 Atherosclerotic heart disease of native coronary artery without angina pectoris; Z90.89 Acquired absence of other organs; Z82.49 Family history of ischemic heart disease and other diseases of the circulatory system; Z88.5 Allergy status to narcotic agent; R07.89 Other chest pain; Z79.4 Long term (current) use of insulin; Z79.01 Long term (current) use of anticoagulants; Z96.642 Presence of left artificial hip joint; Z87.891 Personal history of nicotine dependence

== ENCOUNTER 2017-03-14 02:00 | Inpatient (IN) | payer OTHER ==
[~2017-03-14] VITALS: Ht 165.1 cm; Wt 106.8 kg
[~2017-03-14 02:00] MED LIST changes: -CEPH500C PO; -CLOT-40 TOP; -CRAN400C PO; +DILT120C PO; -DILT120C51 PO; +GLUC-338 PO; +LCTX PO; +LOSA100T65 PO; -LOSA1TAB38 PO; +LVQ750 PO; +OXGN; -QVRINH80 INH; +UMEC1AER INH; +WARF2TAB PO; +[UNRECOGNIZED DRUG - CODE] INH
[2017-03-14 03:31] LABS: BASO % 0.2 %; BASO ABS # 0.01 K/uL (0-0.2); COMPLETE YES; EOS % 1.6 %; HEMATOCRIT 36.1 % (37-47); IG% 0.2 %; LYMPH ABS # 1.68 K/uL (1.2-3.4); MEAN CELL VOLUME 91.9 fL (80-100); MEAN CORPUSCULAR HGB CONC 32.7 g/dl (32-36); MEAN PLATELET VOLUME 10.5 fL (7.4-10.4); MONO % 10.4 %; NEUT % 54.6 %; PLATELET COUNT 128 K/uL (130-400); RED BLOOD COUNT 3.93 M/uL (4.2-5.4); WHITE BLOOD COUNT 5.09 K/uL (4.8-10.8)
[2017-03-14 03:39] LABS: ALT/SGPT 19 U/L (12-78); AST/SGOT 11 U/L (15-37); BLOOD UREA NITROGEN 42 mg/dl (7-18); BUN/CREATININE RATIO 16.2 (10-20); CALCIUM 9.1 mg/dl (8.5-10.1); CARBON DIOXIDE 29 mmol/L (21-32); CHLORIDE 99 mmol/L (98-107); GLUCOSE 69 mg/dl (70-99); POTASSIUM 3.3 mmol/L (3.5-5.1); SODIUM 139 mmol/L (136-145)
[2017-03-14 03:44] LABS: ALB/GLOB RATIO 1.1 (0.9-2); ALKALINE PHOSPHATASE 99 U/L (45-117)
[2017-03-14 05:01] LABS: INR 1.5 (0.9-1.1); PARTIAL THROMBOPLASTIN RATIO 1.2; PROTHROMBIN TIME (PATIENT) 16.5 SECONDS (9.0-12.0)
[2017-03-14] MEDS ORDERED: NITROGLYCERIN 0.4 MG SL PER TAB CHARGE SL PRN (05:30)
[2017-03-14] MEDS ORDERED: ONDANSETRON INJ 2 MG/ML 2 ML VIAL IV PRN (05:30)
[2017-03-14] MEDS ORDERED: GLUCOSE 10 TABS/TUBE PO PRN (05:30)
[2017-03-14] MEDS ORDERED: GLUCAGON FOR INJ 1 MG VIAL SQ PRN (05:30)
[2017-03-14] MEDS ORDERED: GLUCOSE 40% GEL 15 GM TUBE PO PRN (05:30)
[2017-03-14] MEDS ORDERED: MoRPHine SULFATE 2 MG/ML CARP IV PRN (05:30)
[2017-03-14] MEDS ORDERED: POLYETHYLENE (MIRALAX) 17 GM PACK PO PRN (05:30)
[2017-03-14] MEDS ORDERED: DEXTROSE 50% 50 ML SYR IV PRN (05:30)
--- NOTE | 2017-03-14 05:34 | EMERGENCY ROOM VISIT NOTE ---
History Report prepared by Natalya: Idania Francis Under the Supervision of: Dr. Trista Trivedi D.O. First contact with patient: 02:33 Chief Complaint: CHEST PAIN Stated Complaint: CHEST PAIN Nursing Triage Summary: Pt arrived via [facility] from home. 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 Pain gone after 4x nitro with EMS. Hx of NV. History of Present Illness The patient is a 76 year old female who presents to the Emergency Room with complaints of an episode of chest pain starting sometime after 2300. She comes to the ED by EMS. She received 4 nitro in route which relieved her pain. She woke up this morning and had some nausea which she gets sometimes. She was feeling well throughout the day. The patient was getting ready for bed when the chest pain started. She describes the pain as sharp. She is currently not having any chest pain. With the chest pain, she had some SOB and nausea. She denies any diaphoresis. She has had some leg swelling recently. The compression stockings have not been helping. She has had a productive cough recently. She has a history of NV sometime before 2004 and has [address] Source of History: patient Onset: 0 today Position: chest Quality: sharp Timing: other (episodic) Modifying Factors (Relieving): other (nitro) Associated Symptoms: + cough, + SOB, + nausea, No diaphoresis Note: Pt reports leg swelling. Review of Systems See HPI for pertinent positives & negatives. A total of 10 systems reviewed and were otherwise negative. Past Medical & Surgical Medical Problems: (1) Asthma (2) C. difficile colitis (3) Chest pain (4) Chest pain (5) Chronic kidney disease (6) COPD (chronic obstructive pulmonary disease) (7) CVA (cerebral vascular accident) (8) Diabetes mellitus, type II (9) Diabetic foot ulcer (10) Diabetic peripheral neuropathy associated with type 2 diabetes mellitus (11) Foot deformity (12) Gastroparesis (13) GERD (gastroesophageal reflux disease) (14) History of coronary artery disease (15) Hyperlipidemia (16) Hypertension (17) Loss of sensation (18) Pulmonary embolism Surgical Problems: (1) H/O heart artery stent (2) History of appendectomy (3) History of total left hip arthroplasty (4) Hx of removal of ovary Family History FHx: heart disease Social History Smoking Status: Former Smoker Alcohol Use: none Drug Use: none Marital Status: Housing Status: lives alone Occupation Status: retired Current/Historical Medications Scheduled Calcitriol (Rocaltrol), 0.5 MCG PO DAILY Diltiazem Hcl Coated Beads (Diltiazem Hcl Er), 120 MG PO DAILY Ferrous Sulfate (Ferrous Sulfate), 325 MG PO DAILY Furosemide (Lasix), 80 MG PO BID Home O2 Therapy (Oxygen), LITERS NA QPM Insulin Aspart (Novolog), ACHS Insulin Glargine (Lantus), 25 UNITS SQ QAM Insulin Glargine (Lantus), 11 UNITS SQ EVENING MEAL Isosorbide Mononitrate (Isosorbide Mononitrate ER), 60 MG PO DAILY Losartan Potassium (Cozaar), 100 MG PO DAILY Lovastatin (Mevacor), 80 MG PO HS Metolazone (Zaroxolyn), 2.5 MG PO WK Metoprolol Succinate (Metoprolol Succinate ER), 12.5 MG PO DAILY Omeprazole (Omeprazole), 20 MG PO DAILY Solifenacin (Vesicare), 5 MG PO DAILY Umeclidinium-Vilanterol (Anoro Ellipta 62.5-25 Mcg/INH), 1 PUFF INH DAILY Warfarin Sod (Jantoven), 4 MG PO 5XWK Warfarin Sodium (Coumadin), 2 MG PO 3XWK Scheduled PRN Glucose-Vitamin C (Glucose), 1 TAB PO UD PRN for LOW SUGAR Levalbuterol Hcl (Levalbuterol Hcl), 3 ML INH Q4 PRN for SOB/Wheezing Nitroglycerin (Nitrostat), 0.4 MG UT PRN PRN for Chest Pain Allergies Coded Allergies: Acetaminophen (Verified Allergy, Unknown, UNKNOWN, 03/14/17) INFO FROM PT Codeine (Verified Allergy, Unknown, UNKNOWN, 03/14/17) INFO FROM PT Aspirin (Verified Adverse Reaction, Intermediate, (ULCER), 03/14/17) Venlafaxine (Verified Adverse Reaction, Intermediate, DROWINESS/ CONFUSION , 03/14/17) Cephalexin (Verified Adverse Reaction, Mild, DROWSINESS, UNABLE TO DRIVE, UPSET STOMACH, 03/14/17) Oxycodone (Verified Adverse Reaction, Mild, n/v, 03/14/17) gmg Physical Exam Vital Signs Date Time Temp Pulse Resp B/P (MAP) Pulse Ox O2 Delivery O2 Flow Rate FiO2 03/14/17 02:31 169/70 03/14/17 02:30 70 20 97 03/14/17 02:12 72 03/14/17 02:07 169/73 03/14/17 02:00 97 Room Air 03/14/17 02:00 97 Room Air 03/14/17 02:00 36.6 65 20 169/73 97 Room Air Physical Exam HEENT: Head - normocephalic and atraumatic Pupils are equal, round, and reactive to light. Extraocular eye muscles are intact, and sclera are anicteric. Nose - moist nasal mucosa without discharge. Mouth - moist buccal mucosa. Oropharynx is nonerythematous and there is no tonsillar exudate or edema noted. Neck: Supple; no JVD, nuchal rigidity, cervical lymphadenopathy, or auscultated bruits. Heart: Regular rate and rhythm. There is a normal S1 and S2 with no murmurs, clicks, or gallops appreciated. Lungs: Diminished breath sounds in all lung cole with no wheezes, rales, or rhonchi. Abdomen: Soft, completely nontender, nondistended, with good bowel sounds. There are no palpable pulsatile masses or hepatosplenomegaly. There is no guarding, rigidity, or rebound noted. Extremities: No evidence of cyanosis or clubbing. 2+ edema to the legs. There are easily palpable peripheral pulses. Skin: warm and dry with good turgor and no rashes. Medical Decision & Procedures ER Provider Diagnostic Interpretation: X-ray results as stated below per interpretation by me: Chest X-ray: Elevated left hemidiaphragm, no pulmonary infiltrates. Laboratory Results 03/14/17 02:15 Red Blood Count 3.93, Mean Corpuscular Volume 91.9, Mean Corpuscular Hemoglobin 30.0, Mean Corpuscular Hemoglobin Concent 32.7, Mean Platelet Volume 10.5, Neutrophils (%) (Auto) 54.6, Lymphocytes (%) (Auto) 33.0, Monocytes (%) (Auto) 10.4, Eosinophils (%) (Auto) 1.6, Basophils (%) (Auto) 0.2, Neutrophils # (Auto ) 2.78, Lymphocytes # (Auto) 1.68, Monocytes # (Auto) 0.53, Eosinophils # (Auto ) 0.08, Basophils # (Auto) 0.01 03/14/17 02:15 Test 03/14/17 02:15 03/14/17 05:22 White Blood Count 5.09 K/uL (4.8-10.8) Red Blood Count 3.93 M/uL (4.2-5.4) Hemoglobin 11.8 g/dL (12.0-16.0) Hematocrit 36.1 % (37-47) Mean Corpuscular Volume 91.9 fL (80-100) Mean Corpuscular Hemoglobin 30.0 pg (25-34) Mean Corpuscular Hemoglobin Concent 32.7 g/dl (32-36) Platelet Count 128 K/uL (130-400) Mean Platelet Volume 10.5 fL (7.4-10.4) Neutrophils (%) (Auto) 54.6 % Lymphocytes (%) (Auto) 33.0 % Monocytes (%) (Auto) 10.4 % Eosinophils (%) (Auto) 1.6 % Basophils (%) (Auto) 0.2 % Neutrophils # (Auto) 2.78 K/uL (1.4-6.5) Lymphocytes # (Auto) 1.68 K/uL (1.2-3.4) Monocytes # (Auto) 0.53 K/uL (0.11-0.59) Eosinophils # (Auto) 0.08 K/uL (0-0.5) Basophils # (Auto) 0.01 K/uL (0-0.2) RDW Standard Deviation 49.1 fL (36.4-46.3) RDW Coefficient of Variation 14.4 % (11.5-14.5) Immature Granulocyte % (Auto) 0.2 % Immature Granulocyte # (Auto) 0.01 K/uL (0.00-0.02) Prothrombin Time 16.5 SECONDS (9.0-12.0) Prothromb Time International Ratio 1.5 (0.9-1.1) Activated Partial Thromboplast Time 30.0 SECONDS (21.0-31.0) Partial Thromboplastin Ratio 1.2 Anion Gap 11.0 mmol/L (3-11) Est Creatinine Clear Calc Drug Dose 22.1 ml/min Estimated GFR () 19.7 Estimated GFR (Non- 17.0 BUN/Creatinine Ratio 16.2 (10-20) Calcium Level 9.1 mg/dl (8.5-10.1) Total Bilirubin 0.4 mg/dl (0.2-1) Aspartate Amino Transf (AST/SGOT) 11 U/L (15-37) Alanine Aminotransferase (ALT/SGPT) 19 U/L (12-78) Alkaline Phosphatase 99 U/L (45-117) Total Creatine Kinase 63 U/L (26-192) Creatine Kinase MB 0.6 ng/ml (0.5-3.6) Creatine Kinase MB Ratio 1.0 (0-3.0) Troponin I < 0.015 ng/ml (0-0.045) Pro-B-Type Natriuretic Peptide 418 pg/ml (0-1800) Total Protein 6.8 gm/dl (6.4-8.2) Albumin 3.5 gm/dl (3.4-5.0) Globulin 3.3 gm/dl (2.5-4.0) Albumin/Globulin Ratio 1.1 (0.9-2) Laboratory results per my review. ECG Indication: chest pain Rate (beats per minute): 66 Rhythm: normal sinus Findings: PAC, no acute ischemic change Comparison ECG Date: 11-Feb-2017 Change: no significant change ED Course 0242: The patient was evaluated in room B5. A complete history and physical examination were performed. Nursing notes and previous electronic medical records were reviewed. labs were drawn as above. A twelve-lead EKG was obtained as described above. She was observing the air sampling and monitoring and pulse oximeter. She had a chest x-ray as described above. 0359: I reevaluated the patient. She remains chest pain free. I discussed findings and results with her. She verbalized agreement of the treatment plan. The patient will be evaluated for further management and care. The patient's blood sugar was slightly low so she was given stuff to drink. 0420: I discussed the patient's case with Dr. Bowles, [facility] Hospitalist. The patient will be evaluated for further management. Medical Decision The patient is a 76 year old female who presents to the ED with chest pain. Differential diagnosis includes GERD, pleurisy, cardiac ischemia, aortic dissection, pneumonia. Labs: no leukocytosis, hemoglobin 11.8 which is baseline, creatinine 2.6 elevated from 1.8 baseline, glucose 69, BUN 42, LFTs are normal, cardiac enzymes are negative. I attest that I have personally reviewed the patient's current medication list. Patient was found to have an elevated blood pressure which will be addressed as an inpatient. The patient does have a history of cardiac disease with previous PCI. The patient developed chest discomfort which was relieved by nitroglycerin. The patient lists an allergy to aspirin. She is currently on Coumadin. INR is subtherapeutic at 1.5. The patient also has evidence of acute kidney injury with an elevated creatinine. The patient discussed frequent urination but states that this is not unusual for her. I discussed the case with the [facility] Hospitalist and they will evaluate for further management. Consults Time Called: [phone] Consulting Physician: Dr. Bowles, [facility] Hospitalist Returned Call: [phone] I discussed the patient's case with her. The patient will be evaluated for further management. Impression Primary Impression: Left sided chest pain Additional Impression: Acute kidney injury Scribe Attestation The scribe's documentation has been prepared under my direction and personally reviewed by me in its entirety. I confirm that the note above accurately reflects all work, treatment, procedures, and medical decision making performed by me. Departure Information Dispostion Being Evaluated By Hospitalist Referrals Kerry Waterman D.O. (PCP) Patient Instructions My [facility] Problem Qualifiers
[2017-03-14] MEDS ORDERED: PHARMACY GLYCEMIC MGMT CONSULT PRN (05:36)
[2017-03-14] MEDS ORDERED: METO2.5T PO (05:37)
[2017-03-14] MEDS ORDERED: LEVALBUTEROL 1.25MG/3ML NEB INH PRN (05:45)
[2017-03-14] MEDS ORDERED: IV FLUIDS COMPLETED PRN (06:00)
[2017-03-14] MEDS ORDERED: HEPARIN SOD 5000 UNIT/0.5 ML CARP SQ SCH (06:00)
--- NOTE | 2017-03-14 06:22 | DIAGNOSTIC IMAGING REPORT ---
CHEST ONE VIEW PORTABLE CLINICAL HISTORY: cp dyspnea COMPARISON STUDY: 02/13/2017 FINDINGS: Slight increase in density left base. Mild emphysematous change. No significant cardiac enlargement. IMPRESSION: Small parenchymal infiltrate/atelectasis left base. The above report was generated using voice recognition software. It may contain grammatical, syntax or spelling errors. Electronically signed by: Jaleel Xie M.D. 03/14/2017 6:21 AM Dictated Date/Time: 03/14/2017 6:20 AM
[2017-03-14 06:25] VITALS: BP 173/68; PULSE 78; TEMP 36.7; O2SAT 100; Ht 165.1 cm; Wt 106.8 kg
--- NOTE | 2017-03-14 06:46 | History and Physical ---
History & Physical Date & Time of Service: Mar 14, 2017 at 05:38 Chief Complaint: Chest Pain Primary Care Physician: Kerry Waterman D.O. History of Present Illness Source: patient, family, clinic records, hospital records 76 yo F with chest discomfort this evening while getting ready for bed. The pain was intense and described as "hard" and on the right anterior chest with radiation to the center of her chest and up into her R jaw area. This pain lasted longer that her usual discomfort and didn't go away with rest. She called 911 and received 3-4 Nitro in the ambulance before her discomfort finally resolved. She is obese and does have a h/o stent placement in 2000 and had a repeat catheterization Aug 2014 without significant progression of disease. She also has longstanding hypertension with hypertensive heart disease. She is allergic to ASA so this was not given. She denies any associated symptoms of SOB, lightheadedness, sweating, or numbness. She denies any nausea, vomiting, headaches, abdominal pain or other issues aside from the chest discomfort. She does report that she has been coughing nonstop for the past few days and has "not been able to get anything up." Denies fevers or chills and no congestion. 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 She was also recently seen in the clinic by Dr. Do for chest pain a couple of months ago which was thought to be of noncardiac etiology at that time. An TTE was performed 02/14 revealing EF>70%, mild concentric LVH, LAE and normal LV function. Past Medical/Surgical History Medical Problems: (1) Asthma Status: Chronic (2) C. difficile colitis Status: Resolved (3) Chronic kidney disease Status: Chronic (4) COPD (chronic obstructive pulmonary disease) Status: Chronic (5) CVA (cerebral vascular accident) Status: Chronic (6) Diabetes mellitus, type II Status: Chronic (7) Diabetic peripheral neuropathy associated with type 2 diabetes mellitus Status: Chronic (8) Gastroparesis Status: Chronic (9) GERD (gastroesophageal reflux disease) Status: Chronic (10) History of coronary artery disease Status: Chronic (11) Hyperlipidemia Status: Chronic (12) Hypertension Status: Chronic (13) Pulmonary embolism Status: Chronic Surgical Problems: (1) H/O heart artery stent Permanent Comment: PT[facility] LAD [facility] (AVE Stent) Status: Resolved (2) History of appendectomy Status: Resolved (3) History of total left hip arthroplasty Status: Resolved (4) Hx of removal of ovary Permanent Comment: R side Status: Resolved Social History Smoking Status: Former Smoker Smokeless Tobacco Use: No Alcohol Use: none Drug Use: none Marital Status: Housing status: lives alone Occupational Status: retired Immunizations History of Influenza Vaccine: Yes Influenza Vaccine Date: May 31, 2016 History of Tetanus Vaccine?: Yes (utd) Tetanus Immunization Date: Feb 20, 2012 History of Pneumococcal: Yes Pneumococcal Date: Nov 04, 2000 History of Hepatitis B Vaccine: No Multi-Drug Resistant Organisms History of MDRO: No Allergies Coded Allergies: Acetaminophen (Verified Allergy, Unknown, UNKNOWN, 03/14/17) INFO FROM PT Codeine (Verified Allergy, Unknown, UNKNOWN, 03/14/17) INFO FROM PT Aspirin (Verified Adverse Reaction, Intermediate, (ULCER), 03/14/17) Venlafaxine (Verified Adverse Reaction, Intermediate, DROWINESS/ CONFUSION , 03/14/17) Cephalexin (Verified Adverse Reaction, Mild, DROWSINESS, UNABLE TO DRIVE, UPSET STOMACH, 03/14/17) Oxycodone (Verified Adverse Reaction, Mild, n/v, 03/14/17) gmg Home Medications Scheduled Calcitriol (Rocaltrol), 0.5 MCG PO DAILY Diltiazem Hcl Coated Beads (Diltiazem Hcl Er), 120 MG PO DAILY Ferrous Sulfate (Ferrous Sulfate), 325 MG PO DAILY Furosemide (Lasix), 80 MG PO BID Home O2 Therapy (Oxygen), LITERS NA QPM Insulin Aspart (Novolog), ACHS Insulin Glargine (Lantus), 25 UNITS SQ QAM Insulin Glargine (Lantus), 11 UNITS SQ EVENING MEAL Isosorbide Mononitrate (Isosorbide Mononitrate ER), 60 MG PO DAILY Losartan Potassium (Cozaar), 100 MG PO DAILY Lovastatin (Mevacor), 80 MG PO HS Metolazone (Zaroxolyn), 2.5 MG PO WK Metoprolol Succinate (Metoprolol Succinate ER), 12.5 MG PO DAILY Omeprazole (Omeprazole), 20 MG PO DAILY Solifenacin (Vesicare), 5 MG PO DAILY Umeclidinium-Vilanterol (Anoro Ellipta 62.5-25 Mcg/INH), 1 PUFF INH DAILY Warfarin Sod (Jantoven), 4 MG PO 5XWK Warfarin Sodium (Coumadin), 2 MG PO 3XWK Scheduled PRN Glucose-Vitamin C (Glucose), 1 TAB PO UD PRN for LOW SUGAR Levalbuterol Hcl (Levalbuterol Hcl), 3 ML INH Q4 PRN for SOB/Wheezing Nitroglycerin (Nitrostat), 0.4 MG UT PRN PRN for Chest Pain Review of Systems At least ten systems reviewed and negative except as indicated in HPI. Physical Exam Vital Signs Date Time Temp Pulse Resp B/P (MAP) Pulse Ox O2 Delivery O2 Flow Rate FiO2 03/14/17 02:31 169/70 03/14/17 02:30 70 20 97 03/14/17 02:12 72 03/14/17 02:07 169/73 03/14/17 02:00 97 Room Air 03/14/17 02:00 97 Room Air 03/14/17 02:00 36.6 65 20 169/73 97 Room Air GEN: obese, in no acute distress, alert and appropriate HEENT: NC/AT, PERRL, normal sclerae, MMM, pharynx non-acute, whitish substance noted on tongue, partials in place. CARDIO: reg rate, S1/2 heard without m/g/r, entire anterior chest wall is exquisitely TTP LUNGS: CTA bilaterally, no crackles, rales or wheezes, good diaphragmatic excursion ABD: soft, non-tender, non-distended, no rebound or guarding, +BS EXTREMITY: RP and DP palpable 2+ bilat, LE swelling present bilaterally but no edema, extremities are warm and well-perfused NEURO: CN 2-12 grossly intact, no gross focal deficits MUSC: 5/5 strength throughout, moves all extremities equally SKIN: warm and dry Diagnostics Laboratory Results 03/14/17 02:15 Red Blood Count 3.93, Mean Corpuscular Volume 91.9, Mean Corpuscular Hemoglobin 30.0, Mean Corpuscular Hemoglobin Concent 32.7, Mean Platelet Volume 10.5, Neutrophils (%) (Auto) 54.6, Lymphocytes (%) (Auto) 33.0, Monocytes (%) (Auto) 10.4, Eosinophils (%) (Auto) 1.6, Basophils (%) (Auto) 0.2, Neutrophils # (Auto ) 2.78, Lymphocytes # (Auto) 1.68, Monocytes # (Auto) 0.53, Eosinophils # (Auto ) 0.08, Basophils # (Auto) 0.01 03/14/17 02:15 Test 03/14/17 02:15 White Blood Count 5.09 K/uL (4.8-10.8) Red Blood Count 3.93 M/uL (4.2-5.4) Hemoglobin 11.8 g/dL (12.0-16.0) Hematocrit 36.1 % (37-47) Mean Corpuscular Volume 91.9 fL (80-100) Mean Corpuscular Hemoglobin 30.0 pg (25-34) Mean Corpuscular Hemoglobin Concent 32.7 g/dl (32-36) Platelet Count 128 K/uL (130-400) Mean Platelet Volume 10.5 fL (7.4-10.4) Neutrophils (%) (Auto) 54.6 % Lymphocytes (%) (Auto) 33.0 % Monocytes (%) (Auto) 10.4 % Eosinophils (%) (Auto) 1.6 % Basophils (%) (Auto) 0.2 % Neutrophils # (Auto) 2.78 K/uL (1.4-6.5) Lymphocytes # (Auto) 1.68 K/uL (1.2-3.4) Monocytes # (Auto) 0.53 K/uL (0.11-0.59) Eosinophils # (Auto) 0.08 K/uL (0-0.5) Basophils # (Auto) 0.01 K/uL (0-0.2) RDW Standard Deviation 49.1 fL (36.4-46.3) RDW Coefficient of Variation 14.4 % (11.5-14.5) Immature Granulocyte % (Auto) 0.2 % Immature Granulocyte # (Auto) 0.01 K/uL (0.00-0.02) Prothrombin Time 16.5 SECONDS (9.0-12.0) Prothromb Time International Ratio 1.5 (0.9-1.1) Activated Partial Thromboplast Time 30.0 SECONDS (21.0-31.0) Partial Thromboplastin Ratio 1.2 Anion Gap 11.0 mmol/L (3-11) Est Creatinine Clear Calc Drug Dose 22.1 ml/min Estimated GFR () 19.7 Estimated GFR (Non- 17.0 BUN/Creatinine Ratio 16.2 (10-20) Calcium Level 9.1 mg/dl (8.5-10.1) Total Bilirubin 0.4 mg/dl (0.2-1) Aspartate Amino Transf (AST/SGOT) 11 U/L (15-37) Alanine Aminotransferase (ALT/SGPT) 19 U/L (12-78) Alkaline Phosphatase 99 U/L (45-117) Total Creatine Kinase 63 U/L (26-192) Creatine Kinase MB 0.6 ng/ml (0.5-3.6) Creatine Kinase MB Ratio 1.0 (0-3.0) Troponin I < 0.015 ng/ml (0-0.045) Pro-B-Type Natriuretic Peptide 418 pg/ml (0-1800) Total Protein 6.8 gm/dl (6.4-8.2) Albumin 3.5 gm/dl (3.4-5.0) Globulin 3.3 gm/dl (2.5-4.0) Albumin/Globulin Ratio 1.1 (0.9-2) Date/Time Source Procedure Growth Status 03/14/17 06:31 Blood Blood Culture Pending Sandee Batch Results Past 24 Hours Test 03/14/17 02:15 03/14/17 05:22 Range/Units White Blood Count 5.09 4.8-10.8 K/uL Red Blood Count 3.93 4.2-5.4 M/uL Hemoglobin 11.8 12.0-16.0 g/dL Hematocrit 36.1 37-47 % Mean Corpuscular Volume 91.9 80-100 fL Mean Corpuscular Hemoglobin 30.0 25-34 pg Mean Corpuscular Hemoglobin Concent 32.7 32-36 g/dl Platelet Count 128 130-400 K/uL Mean Platelet Volume 10.5 7.4-10.4 fL Neutrophils (%) (Auto) 54.6 % Lymphocytes (%) (Auto) 33.0 % Monocytes (%) (Auto) 10.4 % Eosinophils (%) (Auto) 1.6 % Basophils (%) (Auto) 0.2 % Neutrophils # (Auto) 2.78 1.4-6.5 K/uL Lymphocytes # (Auto) 1.68 1.2-3.4 K/uL Monocytes # (Auto) 0.53 0.11-0.59 K/uL Eosinophils # (Auto) 0.08 0-0.5 K/uL Basophils # (Auto) 0.01 0-0.2 K/uL RDW Standard Deviation 49.1 36.4-46.3 fL RDW Coefficient of Variation 14.4 11.5-14.5 % Immature Granulocyte % (Auto) 0.2 % Immature Granulocyte # (Auto) 0.01 0.00-0.02 K/uL Prothrombin Time 16.5 9.0-12.0 SECONDS Prothromb Time International Ratio 1.5 0.9-1.1 Activated Partial Thromboplast Time 30.0 21.0-31.0 SECONDS Partial Thromboplastin Ratio 1.2 Sodium Level 139 136-145 mmol/L Potassium Level 3.3 3.5-5.1 mmol/L Chloride Level 99 98-107 mmol/L Carbon Dioxide Level 29 21-32 mmol/L Anion Gap 11.0 3-11 mmol/L Blood Urea Nitrogen 42 7-18 mg/dl Creatinine 2.60 0.60-1.20 mg/dl Est Creatinine Clear Calc Drug Dose 22.1 ml/min Estimated GFR () 19.7 Estimated GFR (Non- 17.0 BUN/Creatinine Ratio 16.2 10-20 Random Glucose 69 70-99 mg/dl Calcium Level 9.1 8.5-10.1 mg/dl Total Bilirubin 0.4 0.2-1 mg/dl Aspartate Amino Transf (AST/SGOT) 11 15-37 U/L Alanine Aminotransferase (ALT/SGPT) 19 12-78 U/L Alkaline Phosphatase 99 45-117 U/L Total Creatine Kinase 63 26-192 U/L Creatine Kinase MB 0.6 0.5-3.6 ng/ml Creatine Kinase MB Ratio 1.0 0-3.0 Troponin I < 0.015 0-0.045 ng/ml Pro-B-Type Natriuretic Peptide 418 0-1800 pg/ml Total Protein 6.8 6.4-8.2 gm/dl Albumin 3.5 3.4-5.0 gm/dl Globulin 3.3 2.5-4.0 gm/dl Albumin/Globulin Ratio 1.1 0.9-2 Diagnostic Radiology CHEST ONE VIEW PORTABLE CLINICAL HISTORY: cp dyspnea COMPARISON STUDY: 02/13/2017 FINDINGS: Slight increase in density left base. Mild emphysematous change. No significant cardiac enlargement. IMPRESSION: Small parenchymal infiltrate/atelectasis left base. EKG SR PACs, 66 bpm. no changes from prior EKG, so ST changes to indicate ischemia. Impression Assessment and Plan 76 yo F presents with chest pain for several hours that was intense and cough for the last 3-4 days. 1. Chest pain-multiple etiologies including but not limited to cardiac chest pain (less likely with stable disease, recent normal TTE, poss chronic stable angina?), costochondritis very tender chest wall to palpation, or pleurisy from pneumonia (recent cough and infiltrate seen on CXR). Cannot give ASA as pt is allergic, ARB contraindicated in [place], cont Lovastatin, Imdur, Toprol XL, consult Cardiology. See #2 . 2. HCAP-recent hospitalization one month ago and recent Levaquin use for UTI at that time. The patient also has lung disease so is at risk fr MRSA and possibly gram-negative bacteria. Will initially cover her broadly with Vanc/ Zosyn and will taper down as clinical picture begins to improve. Blood and sputum cultures are pending. 3. KARLEE on CKD III-hold ARB, metolazone, diuretics. Obtain urine studies. 4. DMII-ISS/Lantus with [employer] consult. Of note patient was taken off insulin a few months ago and place on PO meds. 5. HTN-controlled, cont Diltiazem, other meds held in setting of KARLEE 6. PAF-on coumadin, subtherapeutic with INR 1.5. Recent bolus of coumadin given as outpatient, cont to trend INR. 7. COPD-stable no wheezing on exam. She denies SOB, cont inhalers 8. Obesity 9. Chronic diastolic heart failure-patient appears euvolemic, cont medical management, holding Lasix in setting of KARLEE 10. H/O GI bleed in Aug 2016 11. Hypokalemia-likely related to diuretic use. Replace PO and repeat in am. DVT proph-coumadin DNR-confirmed with patient and daughter on admission Dispo-to telemetry Jolly Bowles DO [facility] Hospitalist Level of Care Telemetry Resuscitation Status DO NOT RESUSCITATE VTE Prophylaxis VTE Risk Assessment Done? Y/N: Yes Risk Level: Moderate Given or contraindicated: Unfractionated heparin SQ
[2017-03-14] MEDS: INSULIN ASPART 100 UNITS/ML 3 ML PEN SC SCH ×4 (07:00→20:46)
[2017-03-14] MEDS ORDERED: PIPERACILL/TAZOBAC CONSULT ACTIVE PRN (07:22)
[2017-03-14] MEDS ORDERED: VANCOMYCIN CONSULT ACTIVE PRN (07:30)
[2017-03-14] MEDS ORDERED: PIPERACILL/TAZOBAC IV 4.5 GM in DEXTROSE 5% 100ML IV ONE (07:30)
[2017-03-14 07:44] LABS: ESTIMATED AVERAGE GLUCOSE 160 mg/dl; HA1C FLAG Normal (Normal)
[2017-03-14 07:47] VITALS: BP 137/80; PULSE 72; TEMP 36.4; O2SAT 99
[2017-03-14] MEDS: POTASSIUM CHLORIDE 20 MEQ TABCR PO SCH ×2 (08:34→12:13)
[2017-03-14] MEDS: VANCOMYCIN INJ 2,150 MG in SODIUM CHLORIDE 0.9% 500ML 500 ML IV SCH ×2 (08:35→12:09)
[2017-03-14] MEDS: VESICARE~ORDER AWAITING ACTION SCH ×3 (08:35→20:35)
[2017-03-14] MEDS: DILTIAZEM HCL 120 MG CAPCR PO SCH (08:36)
[2017-03-14] MEDS: CALCITRIOL 0.25 MCG CAP PO SCH (08:36)
[2017-03-14] MEDS: ISOSORBIDE MONONITRATE 60 MG TABCR PO SCH (08:36)
[2017-03-14] MEDS: PANTOprazole SOD 40 MG TAB PO SCH (08:36)
[2017-03-14] MEDS: METOPROLOL SUCC 25MG EXT REL TAB PO SCH (08:37)
[2017-03-14] MEDS: INSULIN GLARGINE SOLOSTAR 100 UNITS/ML 3 ML PEN SC SCH ×2 (08:42→20:46)
[2017-03-14 08:54] LABS: CKMB/CK RATIO 1.1 (0-3.0)
[2017-03-14] MEDS ORDERED: INSULIN GLARGINE SOLOSTAR 100 UNITS/ML 3 ML PEN SC SCH (09:00)
--- NOTE | 2017-03-14 09:24 | Pharmacy Progress Note ---
Glycemic Control Intl Consult Date of Service Mar 14, 2017. Scope Glycemic Pharmacist consulted by Dr Bowles on 03/14 for glycemic control and to write orders per [facility] inpatient glycemic control protocol Objective Weight (Kilograms): 106.100 Accuchecks BSG (last 24hrs): Test 03/14/17 02:15 03/14/17 08:36 Random Glucose 69 mg/dl (70-99) Bedside Glucose 118 mg/dl (70-90) Laboratory Data (last 24hrs) Test 03/14/17 02:15 Anion Gap 11.0 mmol/L BUN/Creatinine Ratio 16.2 Blood Urea Nitrogen 42 mg/dl Creatinine 2.60 mg/dl Hemoglobin A1c 7.2 % Potassium Level 3.3 mmol/L Sodium Level 139 mmol/L White Blood Count 5.09 K/uL Red Blood Count 3.93 M/uL Hemoglobin 11.8 g/dL Hematocrit 36.1 % Mean Corpuscular Volume 91.9 fL Mean Corpuscular Hemoglobin 30.0 pg Mean Corpuscular Hemoglobin Concent 32.7 g/dl Platelet Count 128 K/uL Mean Platelet Volume 10.5 fL Neutrophils (%) (Auto) 54.6 % Lymphocytes (%) (Auto) 33.0 % Monocytes (%) (Auto) 10.4 % Eosinophils (%) (Auto) 1.6 % Basophils (%) (Auto) 0.2 % Neutrophils # (Auto) 2.78 K/uL Lymphocytes # (Auto) 1.68 K/uL Monocytes # (Auto) 0.53 K/uL Eosinophils # (Auto) 0.08 K/uL Basophils # (Auto) 0.01 K/uL HbA1c Test 03/14/17 02:15 Hemoglobin A1c 7.2 % (4.5-5.6) H Recent Pertinent Medications Outpatient Anti-diabetic Regimen: * Novolog per sliding scale (2-8 units) * Lantus 25 units qAM, 11 units qPM Risk Factors for Insulin SENSITIVITY: * Diet: NPO * KARLEE Assessment & Plan ASSESSMENT: * 76 y/o female, well known to the pharmacy glycemic service, admitted with chest pain, HCAP and KARLEE * Her BSGs are currently on the low side and with the KARLEE, will plan to be slightly more conservative compared to previous admissions (past admissions without major stressors on board, requirements were around 60 units/day) * H&P notes that patient was recently taken off insulin and placed on oral meds - will need to confirm this because med rec does not reflect this * ADA & AACE recommend a goal blood sugar range 140-180 mg/dl for the majority of critically ill & non-critically ill patients. However, more stringent targets may be selected in individual cases. Will utilize more stringent goal of 110-140 mg/dl based on patient age & comorbidities. Additionally, tighter glycemic control is warranted to facilitate wound/infection healing. PLAN FOR INPATIENT GLYCEMIC CONTROL: * Basal insulin with LANTUS 0, 10 or 20 units SQ BID - based upon BSG * Correctional Insulin with NOVOLOG per scale ACHS or Q6hrs while NPO * Goal Range: Low 110 mg/dL - High 140 mg/dL * Correction Factor: 20 mg/dL/unit * Nutritional / Prandial insulin per carb ratio of 1 unit per 8 grams CHO consumed * Please note that the plan above was derived based on current level of insulin resistance and hospital stress. These recommendations are appropriate for inpatient admission only. Plan of care upon discharge will need to be reassessed to avoid potential outpatient hypo/hyperglycemia. Thank you.
[2017-03-14 12:09] VITALS: BP 151/67; PULSE 62; TEMP 36.3; O2SAT 96
[2017-03-14] MEDS ORDERED: PIPERACILL/TAZOBAC IV 4.5 GM in DEXTROSE 5% 100ML IV SCH (14:00)
--- NOTE | 2017-03-14 14:04 | Pharmacy Progress Note ---
Pharmacy Abx Initial Consult Date of Service Mar 14, 2017. Pharmacy Dosing Scope Date of Consult: 03/14/17 Consultation requested by: Dr. Bowles Pharmacy is consulted to initiate VANC/ZOSYN IV dosing therapy, order appropriate labs and adjust drug dose/frequency. Subjective The patient is a 76 year old female admitted on Mar 14, 2017 at 05:30 ordered broad spectrum IV antibiotics for presumed HCAP. Pertinent PMH: recent ADM ~ 1 month ago, received LVQ for UTI. CKD-3 (baseline ~1.5ish), Type-II DM, asthma/COPD Objective Height (Feet): 5 Height (Inches): 5.00 Weight (Kilograms): 106.100 Vital Signs (Past 12Hrs) Vital Signs Past 12 Hours Date Time Temp Pulse Resp B/P (MAP) Pulse Ox O2 Delivery O2 Flow Rate FiO2 03/14/17 12:09 36.3 62 18 151/67 (95) 96 Room Air 03/14/17 12:00 Room Air 03/14/17 08:00 Room Air 03/14/17 07:47 36.4 72 18 137/80 (99) 99 Room Air 03/14/17 06:25 36.7 78 18 173/68 100 Room Air 03/14/17 06:00 154/82 03/14/17 04:36 74 22 03/14/17 04:06 78 18 03/14/17 03:36 75 23 03/14/17 02:36 70 22 03/14/17 02:31 169/70 03/14/17 02:30 70 20 97 03/14/17 02:12 72 03/14/17 02:07 169/73 03/14/17 02:00 97 Room Air 03/14/17 02:00 97 Room Air 03/14/17 02:00 36.6 65 20 169/73 97 Room Air Lab Results (24Hrs) Laboratory Tests (24 Hours) Test 03/14/17 02:15 03/14/17 07:35 White Blood Count 5.09 K/uL (4.8-10.8) Red Blood Count 3.93 M/uL (4.2-5.4) L Hemoglobin 11.8 g/dL (12.0-16.0) L Hematocrit 36.1 % (37-47) L Mean Corpuscular Volume 91.9 fL (80-100) Mean Corpuscular Hemoglobin 30.0 pg (25-34) Mean Corpuscular Hemoglobin Concent 32.7 g/dl (32-36) Platelet Count 128 K/uL (130-400) L Mean Platelet Volume 10.5 fL (7.4-10.4) H Neutrophils (%) (Auto) 54.6 % Lymphocytes (%) (Auto) 33.0 % Monocytes (%) (Auto) 10.4 % Eosinophils (%) (Auto) 1.6 % Basophils (%) (Auto) 0.2 % Neutrophils # (Auto) 2.78 K/uL (1.4-6.5) Lymphocytes # (Auto) 1.68 K/uL (1.2-3.4) Monocytes # (Auto) 0.53 K/uL (0.11-0.59) Eosinophils # (Auto) 0.08 K/uL (0-0.5) Basophils # (Auto) 0.01 K/uL (0-0.2) Total Creatine Kinase 56 U/L (26-192) Micro Results Date/Time Source Procedure Growth Status 03/14/17 08:01 Blood Blood Culture Pending Received 03/14/17 07:35 Blood Blood Culture Pending Received Risk Factors for Resistance * Hospitalization for 48 hours or more within the past 90 days * Antimicrobial use within the last 90 days [LVQ po for UTI] Assessment & Plan Plan VANC/ZOSYN for treatment of HCAP Vancomycin IV * Modified Loading dose for obesity: VANC 2150mg (20 mg/kg) * Maintenance dose: VANC 1300mg IV (12 mg/kg) every 24 hours * Goal trough level: 15 to 20 mcg/mL * Trough level TBD after renal function assessed 03/15 * A less than traditional dose has been selected due to likelihood of drug accumulation in obese patient/patient with h/o CKD. Piperacillin/tazobactam * 4.5 g bolus administered over 30 minutes, then 4.5 g IV extended infusion every 8 hours for CrCl greater than 20 mL/min OR every 12 hours for CrCl 20 mL/ min or less and dialysis. Pharmacy will continue to follow and will adjust dose/frequency as necessary. Thank you.
--- NOTE | 2017-03-14 15:02 | Progress Note ---
Internal Med Progress Note Date of Service: Mar 14, 2017. Provider Documentation: SUBJECTIVE: The patient was seen and examined Admitted with Chest pain-recent admission about 1 months ago with Chest pain too Denies any CP today No cough and or SOB OBJECTIVE: Vital Signs-as noted below Exam: General-No distress at rets Eyes-normal ENT-normal Neck-supple Lungs-Decreased breath sound bilaterally at the bases Occasional crackles at the bases Heart-Regular,no murmur Abdomen-Benign,no masses,bowel sound present Extremities-Trace edema bilaterally Neuro-AAOx3 Lab data as noted below. ASSESSMENT & PLAN: Chest pain- -cardiac chest pain (less likely with stable disease, recent normal TTE, poss chronic stable angina), -costochondritis very tender chest wall to palpation, or pleurisy from pneumonia (recent cough and infiltrate seen on CXR). Cont Lovastatin, Imdur, Toprol XL, Serial Alonzo and EKG -negative for any ACS Cardiology consulted . HCAP-Left Base -recent hospitalization one month ago and recent Levaquin use for UTI at that time and possible Bronchitis as well. -The patient also has lung disease so is at risk fr MRSA and possibly gram- negative bacteria. -Started on Vanc/Zosyn and will taper down as clinical picture begins to improve. Blood and sputum cultures are pending. KARLEE on CKD III-hold ARB, metolazone, diuretics. Obtain urine studies. Gentle IVF Monitor Renal function DMII-ISS/Lantus with Glycemic Pharma consult. Of note patient was taken off insulin a few months ago and place on PO meds. HTN-controlled, cont Diltiazem, other meds held in setting of KARLEE PAF-on Coumadin, subtherapeutic with INR 1.5. Recent bolus of Coumadin given as outpatient, cont to trend INR. COPD-stable no wheezing on exam. She denies SOB, cont inhalers Obesity Chronic diastolic heart failure-patient appears euvolemic, cont medical management, holding Lasix in setting of KARLEE H/O GI bleed in Aug 2016 DVT proph-coumadin DNR-confirmed with patient and daughter on admission Dispo-to telemetry DVT PROPHYLAXIS [] DISPOSITION [] Vital Signs: Date Time Temp Pulse Resp B/P (MAP) Pulse Ox O2 Delivery O2 Flow Rate FiO2 03/14/17 12:09 36.3 62 18 151/67 (95) 96 Room Air 03/14/17 12:00 Room Air 03/14/17 08:00 Room Air 03/14/17 07:47 36.4 72 18 137/80 (99) 99 Room Air 03/14/17 06:25 36.7 78 18 173/68 100 Room Air 03/14/17 06:00 154/82 03/14/17 04:36 74 22 03/14/17 04:06 78 18 03/14/17 03:36 75 23 03/14/17 02:36 70 22 03/14/17 02:31 169/70 03/14/17 02:30 70 20 97 03/14/17 02:12 72 03/14/17 02:07 169/73 03/14/17 02:00 97 Room Air 03/14/17 02:00 97 Room Air 03/14/17 02:00 36.6 65 20 169/73 97 Room Air Lab Results: Results Past 24 Hours Test 03/14/17 02:15 03/14/17 07:35 03/14/17 08:36 03/14/17 11:33 Range/Units White Blood Count 5.09 4.8-10.8 K/uL Red Blood Count 3.93 4.2-5.4 M/uL Hemoglobin 11.8 12.0-16.0 g/dL Hematocrit 36.1 37-47 % Mean Corpuscular Volume 91.9 80-100 fL Mean Corpuscular Hemoglobin 30.0 25-34 pg Mean Corpuscular Hemoglobin Concent 32.7 32-36 g/dl Platelet Count 128 130-400 K/uL Mean Platelet Volume 10.5 7.4-10.4 fL Neutrophils (%) (Auto) 54.6 % Lymphocytes (%) (Auto) 33.0 % Monocytes (%) (Auto) 10.4 % Eosinophils (%) (Auto) 1.6 % Basophils (%) (Auto) 0.2 % Neutrophils # (Auto) 2.78 1.4-6.5 K/uL Lymphocytes # (Auto) 1.68 1.2-3.4 K/uL Monocytes # (Auto) 0.53 0.11-0.59 K/uL Eosinophils # (Auto) 0.08 0-0.5 K/uL Basophils # (Auto) 0.01 0-0.2 K/uL RDW Standard Deviation 49.1 36.4-46.3 fL RDW Coefficient of Variation 14.4 11.5-14.5 % Immature Granulocyte % (Auto) 0.2 % Immature Granulocyte # (Auto) 0.01 0.00-0.02 K/uL Prothrombin Time 16.5 9.0-12.0 SECONDS Prothromb Time International Ratio 1.5 0.9-1.1 Activated Partial Thromboplast Time 30.0 21.0-31.0 SECONDS Partial Thromboplastin Ratio 1.2 Sodium Level 139 136-145 mmol/L Potassium Level 3.3 3.5-5.1 mmol/L Chloride Level 99 98-107 mmol/L Carbon Dioxide Level 29 21-32 mmol/L Anion Gap 11.0 3-11 mmol/L Blood Urea Nitrogen 42 7-18 mg/dl Creatinine 2.60 0.60-1.20 mg/dl Est Creatinine Clear Calc Drug Dose 22.1 ml/min Estimated GFR () 19.7 Estimated GFR (Non- 17.0 BUN/Creatinine Ratio 16.2 10-20 Random Glucose 69 70-99 mg/dl Estimated Average Glucose 160 mg/dl Hemoglobin A1c 7.2 4.5-5.6 % Calcium Level 9.1 8.5-10.1 mg/dl Total Bilirubin 0.4 0.2-1 mg/dl Aspartate Amino Transf (AST/SGOT) 11 15-37 U/L Alanine Aminotransferase (ALT/SGPT) 19 12-78 U/L Alkaline Phosphatase 99 45-117 U/L Total Creatine Kinase 63 56 26-192 U/L Creatine Kinase MB 0.6 0.6 0.5-3.6 ng/ml Creatine Kinase MB Ratio 1.0 1.1 0-3.0 Troponin I < 0.015 < 0.015 0-0.045 ng/ml Pro-B-Type Natriuretic Peptide 418 0-1800 pg/ml Total Protein 6.8 6.4-8.2 gm/dl Albumin 3.5 3.4-5.0 gm/dl Globulin 3.3 2.5-4.0 gm/dl Albumin/Globulin Ratio 1.1 0.9-2 Bedside Glucose 118 136 70-90 mg/dl Test 03/14/17 14:00 03/14/17 14:19 Range/Units Creatine Kinase MB Ratio 0-3.0 Microbiology Results 03/14/17 Blood Culture, Received Pending 03/14/17 Blood Culture, Received Pending
[2017-03-14 15:10] LABS: CKMB/CK RATIO 1.3 (0-3.0)
--- NOTE | 2017-03-14 15:11 | Cardiology Consultation ---
Cardiology Consultation Requesting Physician: Dr. Pacheco Attending House Principal: Dr. Lewis Newell History of Present Illness Patient is a 76 year old female seen for evaluation of chest discomfort. Patient developed right sided and substernal chest pain last evening. This issue is a chronic issue. She has been evaluated in the past for this chest pain with repeat echocardiogram and repeat cardiac catheterization in 2015. The results of that catheterization demonstrated stable CAD. Last night her pain became more intense than usual. She became concerned and called her daughter. She was brought to the emergency department via EMS. Chest discomfort gradually subsided. Her x-ray demonstrates a left lower lobe infiltrate. She was started on intravenous antibiotics. Cardiac enzymes are negative 2 sets. Her ECG demonstrates no acute ischemic changes, however, age- indeterminate inferior infarct is present. She is currently resting comfortably. Describes her right sided chest pain as mild. The pain is somewhat reproducible with palpation. Reports a dry hacking cough which is present for more than 3 weeks. No orthopnea, PND, or lower extremity edema. Denies sick contacts, fever or chills. Offers no other complaints at this time. Past Medical/Surgical History Problem List: Medical Problems: (1) Asthma (2) C. difficile colitis (3) Chest pain (4) Chest pain (5) Chronic kidney disease (6) COPD (chronic obstructive pulmonary disease) (7) CVA (cerebral vascular accident) (8) Diabetes mellitus, type II (9) Diabetic foot ulcer (10) Diabetic peripheral neuropathy associated with type 2 diabetes mellitus (11) Foot deformity (12) Gastroparesis (13) GERD (gastroesophageal reflux disease) (14) History of coronary artery disease (15) Hyperlipidemia (16) Hypertension (17) Loss of sensation (18) Pulmonary embolism Surgical Problems: (1) H/O heart artery stent (2) History of appendectomy (3) History of total left hip arthroplasty (4) Hx of removal of ovary Social History Smoking Status: Former Smoker Smokeless Tobacco Use: No Alcohol Use: none Drug Use: none Marital Status: Housing Status: lives alone Occupation: retired Review Of Systems General: The patient denies weight change, night sweats, fever, chills. Head: The patient denies headache and prior head trauma. Cardiovascular: The patient denies chest pain or chest discomfort, dyspnea on exertion, palpitations, PND, orthopnea, edema, spontaneous shortness of breath, syncope and near syncope. Pulmonary: The patient denies cough, wheeze, pleurisy, hemoptysis, sputum, and excessive snoring. Gastrointestinal: The patient denies nausea, vomiting, diarrhea, constipation, bloating, hematemesis, hematochezia, and abdominal pain. Skin: The patient denies diaphoresis and rash. Musculoskeletal: The patient denies joint pain, joint swelling, myalgia, back pain, neck pain and prior injuries. Neurological: The patient denies prior stroke and seizures Allergies Coded Allergies: Codeine (Verified Allergy, Unknown, UNKNOWN, 03/14/17) INFO FROM PT Aspirin (Verified Adverse Reaction, Intermediate, (ULCER), 03/14/17) Venlafaxine (Verified Adverse Reaction, Intermediate, DROWINESS/ CONFUSION , 03/14/17) Cephalexin (Verified Adverse Reaction, Mild, DROWSINESS, UNABLE TO DRIVE, UPSET STOMACH, 03/14/17) Oxycodone (Verified Adverse Reaction, Mild, n/v, 03/14/17) gmg Medications Reported Home Medications Medications Dose Route/Sig Max Daily Dose Days Date Category Dose Instructions Zaroxolyn (Metolazone) 2.5 Mg Tab 2.5 Mg PO WK 03/14/17 Reported Takes on Wednesdays Anoro Ellipta 62.5-25 Mcg/INH (Umeclidinium-Vilanterol) 1 Aer Aer 1 Puff INH DAILY 02/09/17 Reported Cozaar (Losartan Potassium) 100 Mg Tab 100 Mg PO DAILY 02/09/17 Reported Oxygen Gas Liters NA QPM 02/09/17 Reported Glucose (Glucose-Vitamin C) 1 Chw Chw 1 Tab PO UD PRN 02/09/17 Reported Diltiazem Hcl Er (Diltiazem Hcl Coated Beads) 120 Mg Cap 120 Mg PO DAILY 02/09/17 Reported Coumadin (Warfarin Sodium) 2 Mg Tab 2 Mg PO 3XWK 02/09/17 Reported MON, WED, FRI Ferrous Sulfate 325 Mg Tab 325 Mg PO DAILY 01/06/17 Reported Jantoven (Warfarin Sodium) 4 Mg Tab 4 Mg PO 5XWK 01/06/17 Reported SUN, TUES, THURS, SAT Isosorbide Mononitrate ER (Isosorbide Mononitrate) 60 Mg Tab 60 Mg PO DAILY 01/06/17 Reported Rocaltrol (Calcitriol) 0.5 Mcg Cap 0.5 Mcg PO DAILY 01/06/17 Reported Novolog (Insulin Aspart) 100 Units/Ml Inj ACHS 01/06/17 Reported SLIDING SCALE Mevacor (Lovastatin) 40 Mg Tab 80 Mg PO HS 09/07/16 Reported 2 TABLETS AT BEDTIME Lantus (Insulin Glargine) 100 Unit/Ml Inj 11 Units SQ EVENING MEAL 09/07/16 Reported Lantus (Insulin Glargine) 100 Unit/Ml Inj 25 Units SQ QAM 09/07/16 Reported Metoprolol Succinate ER (Metoprolol Succinate) 25 Mg Tabcr 12.5 Mg PO DAILY 08/19/16 Reported Levalbuterol Hcl 1.25 Mg/3 Ml Neb 3 Ml INH Q4 PRN 05/15/16 Reported Vesicare (Solifenacin) 5 Mg Tab 5 Mg PO DAILY 05/15/16 Reported Lasix (Furosemide) 80 Mg Tab 80 Mg PO BID 10/26/15 Reported Nitrostat (Nitroglycerin) 0.4 Mg Sub 0.4 Mg UT PRN PRN 06/20/15 Reported Omeprazole 20 Mg Tab 20 Mg PO DAILY 06/20/15 Reported Physical Exam Vital Signs (Last 8hrs): Last 8 Hrs Date Time Temp Pulse Resp B/P (MAP) Pulse Ox O2 Delivery O2 Flow Rate FiO2 03/14/17 12:09 36.3 62 18 151/67 (95) 96 Room Air 03/14/17 12:00 Room Air 03/14/17 08:00 Room Air 03/14/17 07:47 36.4 72 18 137/80 (99) 99 Room Air General Appearance: Alert and Oriented x3. NAD. Chronically ill. Head: Normocephalic Atraumatic. Eyes: PERRLA, EOMI, conjunctiva and sclera clear Neck: Supple. No carotid bruits noted. No JVD. No HJD. Respiratory: Diminished breath sounds at the left base. No w/r/r. Cardiovascular: Reg rate and rhythm. S1 and S2 noted. No murmurs, rubs, gallops. PMI non displace. Abdomen: Normal bowel sounds, soft nontender. no abdominal bruits. Extremities: No edema, no clubbing or cyanosis. distal pulses 2/4 bilaterally. Neuro: No focal deficits. Psychiatric: Normal affect. Data Last 24 Hours Test 03/14/17 02:15 03/14/17 07:35 03/14/17 08:36 03/14/17 11:33 White Blood Count 5.09 K/uL Red Blood Count 3.93 M/uL Hemoglobin 11.8 g/dL Hematocrit 36.1 % Mean Corpuscular Volume 91.9 fL Mean Corpuscular Hemoglobin 30.0 pg Mean Corpuscular Hemoglobin Concent 32.7 g/dl Platelet Count 128 K/uL Mean Platelet Volume 10.5 fL Neutrophils (%) (Auto) 54.6 % Lymphocytes (%) (Auto) 33.0 % Monocytes (%) (Auto) 10.4 % Eosinophils (%) (Auto) 1.6 % Basophils (%) (Auto) 0.2 % Neutrophils # (Auto) 2.78 K/uL Lymphocytes # (Auto) 1.68 K/uL Monocytes # (Auto) 0.53 K/uL Eosinophils # (Auto) 0.08 K/uL Basophils # (Auto) 0.01 K/uL RDW Standard Deviation 49.1 fL RDW Coefficient of Variation 14.4 % Immature Granulocyte % (Auto) 0.2 % Immature Granulocyte # (Auto) 0.01 K/uL Prothrombin Time 16.5 SECONDS Prothromb Time International Ratio 1.5 Activated Partial Thromboplast Time 30.0 SECONDS Partial Thromboplastin Ratio 1.2 Sodium Level 139 mmol/L Potassium Level 3.3 mmol/L Chloride Level 99 mmol/L Carbon Dioxide Level 29 mmol/L Anion Gap 11.0 mmol/L Blood Urea Nitrogen 42 mg/dl Creatinine 2.60 mg/dl Est Creatinine Clear Calc Drug Dose 22.1 ml/min Estimated GFR () 19.7 Estimated GFR (Non- 17.0 BUN/Creatinine Ratio 16.2 Random Glucose 69 mg/dl Estimated Average Glucose 160 mg/dl Hemoglobin A1c 7.2 % Calcium Level 9.1 mg/dl Total Bilirubin 0.4 mg/dl Aspartate Amino Transf (AST/SGOT) 11 U/L Alanine Aminotransferase (ALT/SGPT) 19 U/L Alkaline Phosphatase 99 U/L Total Creatine Kinase 63 U/L 56 U/L Creatine Kinase MB 0.6 ng/ml 0.6 ng/ml Creatine Kinase MB Ratio 1.0 1.1 Troponin I < 0.015 ng/ml < 0.015 ng/ml Pro-B-Type Natriuretic Peptide 418 pg/ml Total Protein 6.8 gm/dl Albumin 3.5 gm/dl Globulin 3.3 gm/dl Albumin/Globulin Ratio 1.1 Bedside Glucose 118 mg/dl 136 mg/dl Test 03/14/17 14:00 03/14/17 14:19 Creatine Kinase MB Ratio Imaging: Chest x-ray, left lower lobe infiltrate EKG: Sinus rhythm, premature atrial complexes, age-indeterminate inferior infarct. Poor R-wave progression. Telemetry reviewed: Sinus rhythm. Assessment & Plan Final impression: 1. 76-year-old female with history of chronic atherosclerotic coronary disease with prior intervention to the left anterior descending artery in 2000. Repeat catheterization performed August 2014 demonstrated stable moderate LAD stenosis. She presents currently with atypical right sided and central chest discomfort. Pain is nonexertional and somewhat reproducible with palpation. Currently no evidence of acute coronary syndrome with negative cardiac enzymes and no significant ischemic ECG changes. I suspect pain related to progressive cough in the setting of community-acquired pneumonia. 2. Paroxysmal atrial fibrillation currently sinus rhythm with subtherapeutic INR. 3. Stage III diastolic dysfunction - patient appears compensated 4. COPD Plan/recommendations: Cardiac enzymes will be trended 3 sets. A repeat resting 2-D transthoracic echo has been ordered to assess for any new regional wall motion abnormalities given ECG evidence of age-indeterminate inferior infarct as well as recurrent atypical chest discomfort. She'll continue current cardiovascular medications including lovastatin, Imdur, furosemide, Toprol-XL, and Cardizem CD. Antibiotics and nebulizer treatments as per the internal medicine service. Warfarin will be continued for goal INR of 2.0-3.0. She will also continue telemetry monitoring at this time. Thank you for allow me to take part in the care of your patient. Lewis Newell DO, [facility]
[2017-03-14 15:30] VITALS: BP 125/77; PULSE 55; TEMP 36.3; O2SAT 99
[2017-03-14] MEDS: PIPERACILL/TAZOBAC IV 4.5 GM in DEXTROSE 5% 100ML IV SCH (16:14)
[2017-03-14] MEDS: WARFARIN SOD 4 MG TAB PO SCH (16:15)
[2017-03-14] MEDS: LOVASTATIN 20 MG TAB PO SCH (16:15)
[2017-03-14 19:11] VITALS: BP 108/64; PULSE 62; TEMP 36.4; O2SAT 95
[2017-03-14 23:47] VITALS: BP_SYST 104; BP_SYST 126; BP_DIAS 68; PULSE 58; PULSE 83; TEMP 36.5; TEMP 36.9; O2SAT 95; O2SAT 98
[2017-03-15] VITALS (10 sets, daily range): BP systolic 117–186; BP diastolic 47–92; PULSE 57–76; TEMP 36–36.7; O2SAT 98–100
[2017-03-15] MEDS ORDERED: VANCOMYCIN INJ 1,300 MG in SODIUM CHLORIDE 0.9% 250ML 250 ML IV SCH ×2
[2017-03-15] MEDS: PIPERACILL/TAZOBAC IV 4.5 GM in DEXTROSE 5% 100ML IV SCH ×4 (01:47→23:15)
[2017-03-15 06:26] LABS: HEMATOCRIT 36.7 % (37-47); MEAN CORPUSCULAR HEMOGLOBIN 31.3 pg (25-34); MEAN CORPUSCULAR HGB CONC 34.1 g/dl (32-36); PLATELET COUNT 110 K/uL (130-400); RED BLOOD COUNT 3.99 M/uL (4.2-5.4); WHITE BLOOD COUNT 4.09 K/uL (4.8-10.8)
[2017-03-15 06:33] LABS: INR 1.4 (0.9-1.1); PROTHROMBIN TIME (PATIENT) 15.4 SECONDS (9.0-12.0)
[2017-03-15 06:52] LABS: BUN/CREATININE RATIO 16.2 (10-20); CALCIUM 9.1 mg/dl (8.5-10.1); CREATININE 2.5 mg/dl (0.60-1.20); MAGNESIUM 2.4 mg/dl (1.8-2.4); POTASSIUM 3.5 mmol/L (3.5-5.1)
[2017-03-15] MEDS: ISOSORBIDE MONONITRATE 60 MG TABCR PO SCH (07:58)
[2017-03-15] MEDS: METOPROLOL SUCC 25MG EXT REL TAB PO SCH (07:59)
[2017-03-15] MEDS: CALCITRIOL 0.25 MCG CAP PO SCH (07:59)
[2017-03-15] MEDS: DILTIAZEM HCL 120 MG CAPCR PO SCH (07:59)
[2017-03-15] MEDS: PANTOprazole SOD 40 MG TAB PO SCH (07:59)
[2017-03-15] MEDS: VESICARE~ORDER AWAITING ACTION SCH ×3 (07:59→20:55)
[2017-03-15] MEDS: INSULIN ASPART 100 UNITS/ML 3 ML PEN SC SCH ×4 (08:01→20:51)
[2017-03-15] MEDS: INSULIN GLARGINE SOLOSTAR 100 UNITS/ML 3 ML PEN SC SCH ×2 (08:04→20:54)
--- NOTE | 2017-03-15 11:16 | ECHOCARDIOGRAM REPORT ---
*NOTICE TO RECEIVING DEMOCRAT AGENCY This information is strictly Confidential and protected under [place] law. [place] law prohibits you from making any further disclosure of this information unless further disclosure is expressly permitted by the written consent of the person to whom it pertains or is authorized by law. A general authorization for the release of medical or other information is not sufficient for this purpose. Hospital accepts no responsibility if the information is made available to any other person, INCLUDING THE PATIENT. Interpretation Summary * Name: EMILIA ALVARADO Study Date: 03/15/2017 07:09 AM BP: 181/77 mmHg * Patient Location: C.2T\S\S242\S\2 HR: 62 * : 1940 (M/d/yyyy) Gender: Female Height: 65 in * Age: 76 yrs Ethnicity: [place] Weight: 233 lb * Ordering Physician: Soren Newell * Referring Physician: Self, Referred * Performed By: Joan Weir RDCS * * Reason For Study: CHEST PAIN * BSA: 2.1 m2 * The study was technically adequate. * Compared to prior study, there is no significant change. * -- Conclusions -- * Left ventricular systolic function is normal. * Ejection Fraction = >70 %. * There is mild concentric left ventricular hypertrophy. * The left ventricular wall motion is normal. * Grade I diastolic dysfunction, (abnormal relaxation pattern). Procedure Details * A complete two-dimensional transthoracic echocardiogram was performed (2D, M-mode, Doppler and color flow Doppler). Left Ventricle * The left ventricle is normal in size. * There is no thrombus. * There is mild concentric left ventricular hypertrophy. * Ejection Fraction = >70 %. * Left ventricular systolic function is normal. * The left ventricular wall motion is normal. Right Ventricle * The right ventricle is normal size. * The right ventricular systolic function is normal as assessed by tricuspid annular plane systolic excursion (TAPSE) (normal >1.5 cm). Atria * The left atrium is mildly dilated. * Right atrial size is normal. * There is no evidence of atrial septal defect, but resolution does not allow assessment for a patent foramen ovale. Mitral Valve * There is moderate mitral annular calcification. * There is no mitral valve stenosis. * Significant mitral regurgitation is absent. Tricuspid Valve * The tricuspid valve is normal. * There is no tricuspid stenosis. * There is mild tricuspid regurgitation. * Doppler findings do not suggest pulmonary hypertension. Aortic Valve * The aortic valve is trileaflet. * Aortic valve sclerosis mild, without significant aortic valvular stenosis. * Aortic stenosis is absent. * There is no significant aortic regurgitation. Pulmonic Valve * The pulmonary valve is not well seen, but the Doppler examination is normal without significant regurgitation or stenosis. Great Vessels * The aortic root is normal size. Pericardium/Pleural * There is no pericardial effusion. Great Vessels * Normal inferior vena cava diameter and respiratory variation suggests normal central venous pressure. Left Ventricular Diastolic Function * Grade I diastolic dysfunction, (abnormal relaxation pattern). MMode 2D Measurements and Calculations IVSd 1.6 cm IVSs 2.1 cm LVIDd 4.2 cm LVIDs 2.3 cm LVPWd 1.4 cm LVPWs 1.9 cm IVS/LVPW 1.1 FS 44.8 % EDV(Teich) 76.8 ml ESV(Teich) 18.1 ml EF(Teich) 76.5 % EDV(cubed) 72.0 ml ESV(cubed) 12.1 ml EF(cubed) 83.2 % % IVS thick 33.7 % % LVPW thick 32.2 % LV mass(C)d 250.7 grams LV mass(C)dI 118.8 grams/m\S\2 LV mass(C)s 202.0 grams LV mass(C)sI 95.7 grams/m\S\2 SV(Teich) 58.8 ml SI(Teich) 27.8 ml/m\S\2 SV(cubed) 59.9 ml SI(cubed) 28.4 ml/m\S\2 Ao root diam 2.9 cm Ao root area 6.7 cm\S\2 LA dimension 4.0 cm LA/Ao 1.4 LVAd ap4 31.4 cm\S\2 LVLd ap4 7.9 cm EDV(MOD-sp4) 102.8 ml EDV(sp4-el) 105.8 ml LVAs ap4 14.8 cm\S\2 LVLs ap4 6.1 cm ESV(MOD-sp4) 31.1 ml ESV(sp4-el) 30.8 ml EF(MOD-sp4) 69.7 % EF(sp4-el) 70.9 % LVAd ap2 24.2 cm\S\2 LVLd ap2 7.4 cm EDV(MOD-sp2) 66.1 ml EDV(sp2-el) 67.0 ml LVAs ap2 11.4 cm\S\2 LVLs ap2 5.8 cm ESV(MOD-sp2) 19.0 ml ESV(sp2-el) 18.9 ml EF(MOD-sp2) 71.2 % EF(sp2-el) 71.8 % LVLd %diff -7.11 % EDV(MOD-bp) 86.1 ml LVLs %diff -3.56 % ESV(MOD-bp) 24.4 ml EF(MOD-bp) 71.7 % SV(MOD-sp4) 71.7 ml SI(MOD-sp4) 34.0 ml/m\S\2 SV(MOD-sp2) 47.0 ml SI(MOD-sp2) 22.3 ml/m\S\2 SV(MOD-bp) 61.7 ml SI(MOD-bp) 29.3 ml/m\S\2 SV(sp4-el) 75.0 ml SI(sp4-el) 35.5 ml/m\S\2 SV(sp2-el) 48.1 ml SI(sp2-el) 22.8 ml/m\S\2 Doppler Measurements and Calculations MV E max mayco 114.5 cm/sec MV A max mayco 132.2 cm/sec MV E/A 0.87 MV dec time 0.30 sec Ao V2 max 172.4 cm/sec Ao max PG 11.9 mmHg Ao max PG (full) 3.6 mmHg LV V1 max PG 8.3 mmHg LV V1 max 143.8 cm/sec TR max mayco 237.5 cm/sec
--- NOTE | 2017-03-15 13:01 | Progress Note ---
Internal Med Progress Note Date of Service: Mar 15, 2017. Provider Documentation: SUBJECTIVE: The patient was seen and examined Admitted with Chest pain-recent admission about 1 months ago with Chest pain too Denies any CP today Complains of cough today No fever,chills No Nausea and or vomiting OBJECTIVE: Vital Signs-as noted below Exam: General-No distress at rets Eyes-normal ENT-normal Neck-supple Lungs-Decreased breath sound bilaterally at the bases Occasional crackles at the bases Heart-Regular,no murmur Abdomen-Benign,distended,no masses,bowel sound present Extremities-Trace edema bilaterally Neuro-AAOx3 Lab data as noted below. ASSESSMENT & PLAN: Chest pain- -cardiac chest pain (less likely with stable disease, recent normal TTE, poss chronic stable angina), -costochondritis very tender chest wall to palpation, or pleurisy from pneumonia (recent cough and infiltrate seen on CXR). Cont Lovastatin, Imdur, Toprol XL, Serial Alonzo and EKG -negative for any ACS Cardiology consulted-appreciate Input Repeat ECHO::Left ventricular systolic function is normal. * Ejection Fraction = >70 %. * There is mild concentric left ventricular hypertrophy. * The left ventricular wall motion is normal. * Grade I diastolic dysfunction, (abnormal relaxation pattern). Remains otherwise stable . HCAP-Left Base -recent hospitalization one month ago and recent Levaquin use for UTI at that time and possible Bronchitis as well. -The patient also has lung disease so is at risk fr MRSA and possibly gram- negative bacteria. -Started on Vanc/Zosyn and will taper down as clinical picture begins to improve. Blood and sputum cultures are pending. Complains of Cough-Carlito nazario prescribed KARLEE on CKD III-hold ARB, metolazone, diuretics. Obtain urine studies. Gentle IVF Monitor Renal function-slightly better 03/15/17 DMII-ISS/Lantus with [employer] consult. Of note patient was taken off insulin a few months ago and place on PO meds. HTN-controlled, cont Diltiazem, other meds held in setting of KARLEE PAF-on Coumadin, subtherapeutic with INR 1.5. Recent bolus of Coumadin given as outpatient, cont to trend INR. COPD-stable no wheezing on exam. She denies SOB, cont inhalers Obesity Chronic diastolic heart failure-patient appears euvolemic, cont medical management, holding Lasix in setting of KARLEE Will need to restart Lasix on Improvement of Renal function H/O GI bleed in Aug 2016 DVT proph-coumadin DNR-confirmed with patient and daughter on admission Dispo-to telemetry DVT PROPHYLAXIS [] DISPOSITION [] Vital Signs: Date Time Temp Pulse Resp B/P (MAP) Pulse Ox O2 Delivery O2 Flow Rate FiO2 03/15/17 12:06 36.0 64 19 159/72 (101) 98 Room Air 03/15/17 09:35 63 99 03/15/17 08:06 36.4 61 19 181/77 (111) 100 Room Air 03/15/17 08:00 Room Air 03/15/17 04:27 76 117/52 (73) 03/15/17 04:00 Room Air 03/15/17 03:55 36.4 64 20 182/92 (122) 99 Room Air 03/15/17 00:00 Room Air 03/14/17 23:47 36.5 58 18 126/68 (87) 98 Room Air 03/14/17 20:00 Room Air 03/14/17 19:11 36.4 62 21 108/64 (79) 95 Room Air 03/14/17 16:00 Room Air 03/14/17 15:30 36.3 55 19 125/77 (93) 99 Room Air Lab Results: Results Past 24 Hours Test 03/14/17 14:19 03/14/17 15:03 03/14/17 16:26 03/14/17 20:30 Range/Units Total Creatine Kinase 70 26-192 U/L Creatine Kinase MB 0.9 0.5-3.6 ng/ml Creatine Kinase MB Ratio 1.3 0-3.0 Troponin I < 0.015 0-0.045 ng/ml Bedside Glucose 134 140 70-90 mg/dl Urine Random Creatinine 73.0 mg/dl Urine Random Sodium 39 mEq/L Test 03/14/17 20:44 03/15/17 06:03 03/15/17 06:42 03/15/17 11:18 Range/Units Bedside Glucose 149 140 231 70-90 mg/dl White Blood Count 4.09 4.8-10.8 K/uL Red Blood Count 3.99 4.2-5.4 M/uL Hemoglobin 12.5 12.0-16.0 g/dL Hematocrit 36.7 37-47 % Mean Corpuscular Volume 92.0 80-100 fL Mean Corpuscular Hemoglobin 31.3 25-34 pg Mean Corpuscular Hemoglobin Concent 34.1 32-36 g/dl RDW Standard Deviation 49.2 36.4-46.3 fL RDW Coefficient of Variation 14.5 11.5-14.5 % Platelet Count 110 130-400 K/uL Mean Platelet Volume 10.0 7.4-10.4 fL Prothrombin Time 15.4 9.0-12.0 SECONDS Prothromb Time International Ratio 1.4 0.9-1.1 Sodium Level 139 136-145 mmol/L Potassium Level 3.5 3.5-5.1 mmol/L Chloride Level 102 98-107 mmol/L Carbon Dioxide Level 32 21-32 mmol/L Anion Gap 5.0 3-11 mmol/L Blood Urea Nitrogen 41 7-18 mg/dl Creatinine 2.50 0.60-1.20 mg/dl Est Creatinine Clear Calc Drug Dose 22.6 ml/min Estimated GFR () 20.6 Estimated GFR (Non- 17.8 BUN/Creatinine Ratio 16.2 10-20 Random Glucose 134 70-99 mg/dl Calcium Level 9.1 8.5-10.1 mg/dl Magnesium Level 2.4 1.8-2.4 mg/dl Microbiology Results 03/15/17 MRSA DNA Surveillance Screen, Received Pending 03/14/17 Gram Stain - Final, Complete 03/14/17 Sputum Culture - Final, Complete
--- NOTE | 2017-03-15 13:20 | Pharmacy Progress Note ---
Glycemic Control Progress Note Date of Service Mar 15, 2017. Scope Glycemic Pharmacist consulted for glycemic control to write orders per [facility] inpatient glycemic control protocol. Objective Accuchecks BSG (last 24hrs): Test 03/14/17 15:03 03/14/17 16:26 03/14/17 20:44 03/15/17 06:03 Bedside Glucose 134 mg/dl (70-90) 140 mg/dl (70-90) 149 mg/dl (70-90) Random Glucose 134 mg/dl (70-99) Test 03/15/17 06:42 03/15/17 11:18 Bedside Glucose 140 mg/dl (70-90) 231 mg/dl (70-90) HbA1c: Test 03/14/17 02:15 Hemoglobin A1c 7.2 % (4.5-5.6) H Recent Pertinent Medications Outpatient Anti-diabetic Regimen: *CONFIRMED W/ PATIENT * Novolog per sliding scale (2-8 units) * Lantus 25 units qAM, 11 units qPM Risk Factors for Insulin Resistance: * Diet: advanced to type 2 diabetes/ AHA Risk Factors for Insulin SENSITIVITY: * KARLEE - starting to improve Assessment & Plan ASSESSMENT: 03/14 * 76 y/o female, well known to the pharmacy glycemic service, admitted with chest pain, HCAP and KARLEE * Her BSGs are currently on the low side and with the KARLEE, will plan to be slightly more conservative compared to previous admissions (past admissions without major stressors on board, requirements were around 60 units/day) * H&P notes that patient was recently taken off insulin and placed on oral meds - will need to confirm this because med rec does not reflect this * ADA & AACE recommend a goal blood sugar range 140-180 mg/dl for the majority of critically ill & non-critically ill patients. However, more stringent targets may be selected in individual cases. Will utilize more stringent goal of 110-140 mg/dl based on patient age & comorbidities. Additionally, tighter glycemic control is warranted to facilitate wound/infection healing. 03/15 * Patient received 34 units of insulin yesterday w/ BSGs ranging from 134-231 over 24 hours * PO intake is increasing and SCr slightly improved; therefore, anticipate patient needing more insulin * Fasting BSG at goal so no change to basal dose * Postprandial BSGs increasing so will tighten CR based upon previous admissions PLAN FOR INPATIENT GLYCEMIC CONTROL: * Continue Lantus 15 units BID (reduce to 10 units or hold for BSG below goal) * Correctional Insulin with NOVOLOG per scale ACHS or Q6hrs while NPO * Goal Range: Low 110 mg/dL - High 140 mg/dL * Correction Factor: 20 mg/dL/unit * TIGHTEN Prandial insulin per carb ratio of 1 unit per 7 grams CHO consumed DISCHARGE RECOMMENDATIONS: * Continue outpatient regimen of Lantus + Novolog * A1c acceptable for patient's age/comorbidities Thank you.
[2017-03-15] MEDS: BENZONATATE 100MG CAP PO SCH ×2 (14:18→20:52)
[2017-03-15] MEDS: WARFARIN SOD 4 MG TAB PO SCH (16:25)
[2017-03-15] MEDS: LOVASTATIN 20 MG TAB PO SCH (16:53)
[2017-03-16 04:32] VITALS: BP 115/46; PULSE 57; TEMP 36.6; O2SAT 99
[2017-03-16 06:38] LABS: INR 1.5 (0.9-1.1); PROTHROMBIN TIME (PATIENT) 16.3 SECONDS (9.0-12.0)
[2017-03-16 06:46] LABS: CREATININE 2.5 mg/dl (0.60-1.20)
[2017-03-16 07:54] VITALS: BP 142/75; PULSE 63; TEMP 36.4; O2SAT 95
[2017-03-16] MEDS: VESICARE~ORDER AWAITING ACTION SCH ×2 (08:00→16:48)
[2017-03-16] MEDS: BENZONATATE 100MG CAP PO SCH ×3 (08:15→20:31)
[2017-03-16] MEDS: ISOSORBIDE MONONITRATE 60 MG TABCR PO SCH (08:16)
[2017-03-16] MEDS: CALCITRIOL 0.25 MCG CAP PO SCH (08:16)
[2017-03-16] MEDS: PANTOprazole SOD 40 MG TAB PO SCH (08:16)
[2017-03-16] MEDS: DILTIAZEM HCL 120 MG CAPCR PO SCH (08:16)
[2017-03-16] MEDS: METOPROLOL SUCC 25MG EXT REL TAB PO SCH (08:16)
[2017-03-16] MEDS: PIPERACILL/TAZOBAC IV 4.5 GM in DEXTROSE 5% 100ML IV SCH (08:19)
[2017-03-16] MEDS: INSULIN ASPART 100 UNITS/ML 3 ML PEN SC SCH ×4 (08:20→20:34)
[2017-03-16] MEDS: INSULIN GLARGINE SOLOSTAR 100 UNITS/ML 3 ML PEN SC SCH ×2 (08:21→20:33)
--- NOTE | 2017-03-16 10:10 | Pharmacy Progress Note ---
Glycemic Control Progress Note Date of Service Mar 16, 2017. Scope Glycemic Pharmacist consulted for glycemic control to write orders per [facility] inpatient glycemic control protocol. Objective Accuchecks BSG (last 24hrs): Test 03/15/17 11:18 03/15/17 16:19 03/15/17 20:21 03/16/17 06:55 Bedside Glucose 231 mg/dl (70-90) 183 mg/dl (70-90) 115 mg/dl (70-90) 153 mg/dl (70-90) HbA1c: Test 03/14/17 02:15 Hemoglobin A1c 7.2 % (4.5-5.6) H Recent Pertinent Medications The patient is currently receiving: * Basal insulin: * Lantus 15 units SQ in AM * Lantus 10 units SQ in PM * Bolus Insulin: * NovoLog SQ ACHS - Goal Range: Low 110 mg/dL - High 140 mg/dL - Correction Factor: 20 mg/dL/unit - Carb ratio of 1 unit per 7 grams CHO consumed Outpatient Anti-Diabetic Meds Home regimen: * NovoLog SSI * Lantus * 25 units SQ in AM * 11 units SQ in PM Assessment & Plan ASSESSMENT: * Pt receiving SQ basal bolus insulin regimen for hyperglycemia secondary to baseline DM and stress/infection * Patient is currently receiving an average of 53 units of insulin per day * 25 units of basal insulin * 28 units of prandial/correctional insulin * BSGs ranging 115 - 231 mg/dl over the past 24hrs * Changes needed to insulin regimen: * AM Fasting BSG = 153 mg/dl. This is in slightly above goal range for patient based on inpatient targets and co-morbidities. Therefore Basal insulin needs increased * Post-prandial BSGs are in range after yesterday's change, therefore no changes needed to CF/CR * Total daily dose = 53 units. Increase in total daily dose is needed - goal total daily dose 60 units PLAN FOR INPATIENT GLYCEMIC CONTROL: * Basal insulin * Lantus 20 units SQ q AM (increase toward home dose) * Lantus 10 units SQ q PM * Bolus insulin * NovoLog per scale ACHS or Q6hrs while NPO * Goal Range: Low 110 mg/dL - High 140 mg/dL * Correction Factor: 20 mg/dL/unit * Carb ratio of 1 unit per 7 grams CHO consumed RECOMMENDATIONS FOR DISCHARGE: * Continue home regimen at discharge as A1c shows appropriate glycemic control as an outpatient. * Please note that the plan above was derived based on current level of insulin resistance and hospital stress. These recommendations are appropriate for inpatient admission only. Plan of care upon discharge will need to be reassessed to avoid potential outpatient hypo/hyperglycemia. Thank you.
--- NOTE | 2017-03-16 11:45 | Cardiology Follow-Up ---
Subjective General Date of Service: Mar 16, 2017. Chief Complaint: CP Pt evaluation today including: conversation w/ patient, physical exam, chart review, lab review, review of studies, review of inpatient medication list History of Present Illness Patient states she is feeling better. Primary concern today is generalized fatigue. Transient right sided chest pain still present, but improved from admission. No radiation. No associated symptoms. Lasts for seconds to minutes and resolves. No SOB. Cough improving. Denies dizziness, syncope or near syncope. Allergies Coded Allergies: Codeine (Verified Allergy, Unknown, UNKNOWN, 03/14/17) INFO FROM PT Aspirin (Verified Adverse Reaction, Intermediate, (ULCER), 03/14/17) Venlafaxine (Verified Adverse Reaction, Intermediate, DROWINESS/ CONFUSION , 03/14/17) Cephalexin (Verified Adverse Reaction, Mild, DROWSINESS, UNABLE TO DRIVE, UPSET STOMACH, 03/14/17) Oxycodone (Verified Adverse Reaction, Mild, n/v, 03/14/17) gmg Social History Smoking Status: Former Smoker Hx Tobacco Use In Past Year?: No Hx Alcohol Use - Type And Amou: No Hx Substance Use - Type And Am: No Problem List Medical Problems: (1) Acute kidney injury Status: Acute (2) KARLEE (acute kidney injury) Status: Acute (3) Anxiety attack Status: Acute (4) Atypical chest pain Status: Acute (5) Bronchitis Status: Acute (6) Candidal intertrigo Status: Acute (7) COPD exacerbation Status: Acute (8) COPD exacerbation Status: Acute (9) Hyperventilation Status: Acute (10) Left sided chest pain Status: Acute (11) Shortness of breath Status: Acute (12) Substernal chest pain Status: Acute (13) UTI (urinary tract infection) Status: Acute Review of Systems Respiratory: + cough, No sputum, No shortness of breath, No dyspnea at rest, No hemoptysis Cardiac: + chest pain, No orthopnea, No PND, No edema, No palpitations Physical Exam Vital Signs Last Vital Signs Documentation Date Time Temp Pulse Resp B/P (MAP) Pulse Ox O2 Delivery O2 Flow Rate FiO2 03/16/17 07:54 36.4 63 20 142/75 (97) 95 Room Air Physical Exam Constitutional: General Apperance: heathly-appearing, overweight Level of Distress: NAD Psychiatric: Mental Status: active & alert Orientation: to time, to place, to person Eyes: Pupils: PERRLA Neck: supple Lungs: Respiratory effort: no dyspnea Auscultation: no wheezing, no rales/crackles, no rhonchi Cardiovascular: Heart Auscultation: RRR, normal S1, normal S2, no murmurs Abdomen: Bowel Sounds: normal Inspection & Palpation: soft, non-distended Extremities: no edema Assessment and Plan Assessment and Plan Final impression: 76 year old female 1. Chest pain, atypical - diagnosed with CAP. Symptoms improved from hospitalization. 2. chronic atherosclerotic coronary disease with prior intervention to the left anterior descending artery in 2000. Repeat catheterization performed August 2014 demonstrated stable moderate LAD stenosis. -echo findings with preserved LV function, normal wall motion. No change from prior. -negative cardiac enzymes 3. Paroxysmal atrial fibrillation currently sinus rhythm with subtherapeutic INR. 4. Stage III diastolic dysfunction - patient appears compensated 5. COPD Plan/recommendations: Continue antibiotics per hospitalist. Continue home cardiac medications. No further cardiac testing warranted at this time. Will sign off. Routine cardiology follow up will be arranged. Cardiology Attending Physician: Patient seen and examined at the bedside. Complains of fatigue today. Mild intermittent episodes of right sided chest discomfort lasting a few seconds up to 1 minute reported. No events on telemetry. Initial cardiac testing unremarkable. Offers no new complaints at this time. PE: VSS. Gen: NAD. AAO x 3. Heart: Regular Normal S1S2. No murmur. Lungs: Crackles at right base. Abd: soft NT, ND, +BS. Ext: trace B/L pedal edema. A/P: Agree with above PAC history, physical exam, assessment and plan. No further cardiac testing at this time. Continue home cardiac medications as previously ordered. Will sign off. Please call with questions. Lewis Newell DO, [facility] Laboratory Results Last 24 Hours Test 03/15/17 11:18 03/15/17 16:19 03/15/17 20:21 03/16/17 05:53 Bedside Glucose 231 mg/dl 183 mg/dl 115 mg/dl Prothrombin Time 16.3 SECONDS Prothromb Time International Ratio 1.5 Creatinine 2.50 mg/dl Est Creatinine Clear Calc Drug Dose 22.5 ml/min Estimated GFR () 20.6 Estimated GFR (Non- 17.8 Test 03/16/17 06:55 Bedside Glucose 153 mg/dl
[2017-03-16 12:08] VITALS: BP 132/74; PULSE 61; TEMP 36.4; O2SAT 99
[2017-03-16] MEDS ORDERED: DOXYCYCLINE HYCLATE 100 MG CAP PO ONE (12:36)
[2017-03-16] MEDS ORDERED: WARFARIN SOD 5 MG TAB PO ONE (13:45)
--- NOTE | 2017-03-16 13:49 | Progress Note ---
Internal Med Progress Note Date of Service: Mar 16, 2017. Provider Documentation: SUBJECTIVE: The patient was seen and examined Admitted with Chest pain-recent admission about 1 months ago with Chest pain too Denies any CP today Complains of cough today Not feeling well today OBJECTIVE: Vital Signs-as noted below Exam: General-No distress at rest Eyes-normal ENT-normal Neck-supple Lungs-Decreased breath sound bilaterally at the bases Occasional crackles at the bases,left more than right Heart-Regular,no murmur Abdomen-Benign,distended,no masses,bowel sound present Extremities-Trace edema bilaterally Neuro-AAOx3 Lab data as noted below. ASSESSMENT & PLAN: Chest pain- -cardiac chest pain (less likely with stable disease, recent normal TTE, poss chronic stable angina), -costochondritis very tender chest wall to palpation, or pleurisy from pneumonia (recent cough and infiltrate seen on CXR). Cont Lovastatin, Imdur, Toprol XL, Serial Alonzo and EKG -negative for any ACS Cardiology consulted-appreciate Input Repeat ECHO::Left ventricular systolic function is normal. * Ejection Fraction = >70 %. * There is mild concentric left ventricular hypertrophy. * The left ventricular wall motion is normal. * Grade I diastolic dysfunction, (abnormal relaxation pattern). Noncardiac Chest pain Cardiology signed off . HCAP-Left Base -recent hospitalization one month ago and recent Levaquin use for UTI at that time and possible Bronchitis as well. -The patient also has lung disease so is at risk fr MRSA and possibly gram- negative bacteria. -Started on Vanc/Zosyn and will taper down as clinical picture begins to improve. Blood and sputum cultures -negative Complains of Cough-Carlito nazario prescribed Doxycycline to continue for a total of 10 days KARLEE on CKD III-hold ARB, metolazone, diuretics. Obtain urine studies. Gentle IVF Monitor Renal function-slightly better 03/15/17 May be having a new baseline DMII-ISS/Lantus with [employer] consult. Of note patient was taken off insulin a few months ago and place on PO meds. HTN-controlled, cont Diltiazem, other meds held in setting of KARLEE PAF-on Coumadin, subtherapeutic with INR 1.5. Recent bolus of Coumadin given as outpatient, cont to trend INR. COPD-stable no wheezing on exam. She denies SOB, cont inhalers Obesity Chronic diastolic heart failure-patient appears euvolemic, cont medical management, holding Lasix in setting of KARLEE Will need to restart Lasix on Improvement of Renal function H/O GI bleed in Aug 2016 DVT proph-coumadin INR-1.5 today Will increase Coumadin today DNR-confirmed with patient and daughter on admission Dispo-to telemetry Vital Signs: Date Time Temp Pulse Resp B/P (MAP) Pulse Ox O2 Delivery O2 Flow Rate FiO2 03/16/17 12:08 36.4 61 20 132/74 (93) 99 Room Air 03/16/17 08:00 Room Air 03/16/17 07:54 36.4 63 20 142/75 (97) 95 Room Air 03/16/17 04:32 36.6 57 18 115/46 (69) 99 Room Air 03/16/17 04:00 Room Air 03/16/17 00:00 Room Air 03/15/17 23:49 36.4 60 18 141/47 (78) 98 Room Air 03/15/17 20:01 58 18 98 Room Air 03/15/17 20:00 Room Air 03/15/17 19:43 36.7 57 18 130/53 (78) 98 Room Air 03/15/17 16:00 Room Air 03/15/17 15:42 36.4 57 18 132/57 (82) 99 Room Air Lab Results: Results Past 24 Hours Test 03/15/17 16:19 03/15/17 20:21 03/16/17 05:53 03/16/17 06:55 Range/Units Bedside Glucose 183 115 153 70-90 mg/dl Prothrombin Time 16.3 9.0-12.0 SECONDS Prothromb Time International Ratio 1.5 0.9-1.1 Creatinine 2.50 0.60-1.20 mg/dl Est Creatinine Clear Calc Drug Dose 22.5 ml/min Estimated GFR () 20.6 Estimated GFR (Non- 17.8 Test 03/16/17 11:44 Range/Units Bedside Glucose 167 70-90 mg/dl
[2017-03-16 15:40] VITALS: O2SAT 99
[2017-03-16 15:42] VITALS: BP 179/72; PULSE 58; TEMP 36.3; O2SAT 98
[2017-03-16] MEDS: WARFARIN SOD 2 MG TAB PO SCH (16:48)
[2017-03-16] MEDS: LOVASTATIN 20 MG TAB PO SCH (17:35)
[2017-03-16] MEDS: DOXYCYCLINE HYCLATE 100 MG CAP PO SCH (20:30)
[2017-03-16 23:51] VITALS: BP 149/82; PULSE 66; TEMP 36.5; O2SAT 100
[2017-03-17 07:14] LABS: CREATININE 1.9 mg/dl (0.60-1.20)
[2017-03-17 07:31] VITALS: BP 165/72; PULSE 62; TEMP 36.2; O2SAT 98
[2017-03-17] MEDS ORDERED: INSULIN GLARGINE SOLOSTAR 100 UNITS/ML 3 ML PEN SC SCH (08:00)
[2017-03-17] MEDS: VESICARE~ORDER AWAITING ACTION SCH ×4 (08:00→23:56)
[2017-03-17] MEDS: DILTIAZEM HCL 120 MG CAPCR PO SCH (08:20)
[2017-03-17] MEDS: PANTOprazole SOD 40 MG TAB PO SCH (08:20)
[2017-03-17] MEDS: DOXYCYCLINE HYCLATE 100 MG CAP PO SCH ×2 (08:20→20:10)
[2017-03-17] MEDS: ISOSORBIDE MONONITRATE 60 MG TABCR PO SCH (08:21)
[2017-03-17] MEDS: CALCITRIOL 0.25 MCG CAP PO SCH (08:21)
[2017-03-17] MEDS: BENZONATATE 100MG CAP PO SCH ×3 (08:21→20:10)
[2017-03-17] MEDS: METOPROLOL SUCC 25MG EXT REL TAB PO SCH (08:21)
[2017-03-17] MEDS: INSULIN ASPART 100 UNITS/ML 3 ML PEN SC SCH ×4 (08:25→20:11)
[2017-03-17] MEDS: INSULIN GLARGINE SOLOSTAR 100 UNITS/ML 3 ML PEN SC SCH ×2 (08:27→20:13)
[2017-03-17 09:58] LABS: INR 1.8 (0.9-1.1); PROTHROMBIN TIME (PATIENT) 19.3 SECONDS (9.0-12.0)
[2017-03-17 15:10] VITALS: BP 108/68; PULSE 55; TEMP 36.2; O2SAT 99
[2017-03-17] MEDS: WARFARIN SOD 4 MG TAB PO SCH (16:50)
[2017-03-17] MEDS: LOVASTATIN 20 MG TAB PO SCH (16:51)
--- NOTE | 2017-03-17 17:44 | Progress Note ---
Medicine Progress Note Date & Time of Visit: Mar 17, 2017 at 17:23. Subjective Pt was seen and examined Sitting in chair comfortable with no distress Pt said that she started to feel better She said that her breathing improved Denies any chest pain, palpitation, dizziness and SOB. Objective Last 8 Hrs Date Time Temp Pulse Resp B/P (MAP) Pulse Ox O2 Delivery O2 Flow Rate FiO2 03/17/17 16:00 Room Air 03/17/17 15:10 36.2 55 20 108/68 (81) 99 Room Air Physical Exam: General- No acute distress Head- atraumatic Eyes- PERRL, EOMI ENT- oropharynx clear Neck- supple, no JVD Lungs- mild cackles at base Heart- regular rhythm; no murmur Abdomen- normal bowel sounds, soft Extremities- no calf tenderness Neuro- alert, oriented x 3; PERRL, EOMI Skin- warm & dry Laboratory Results: Last 24 Hours Test 03/16/17 19:43 03/17/17 06:18 03/17/17 07:36 03/17/17 09:30 Bedside Glucose 116 mg/dl 146 mg/dl Creatinine 1.90 mg/dl Est Creatinine Clear Calc Drug Dose 29.6 ml/min Estimated GFR () 28.8 Estimated GFR (Non- 24.8 Prothrombin Time 19.3 SECONDS Prothromb Time International Ratio 1.8 Test 03/17/17 11:33 03/17/17 16:38 Bedside Glucose 143 mg/dl 98 mg/dl Assessment & Plan Chest pain- Possible related to costochondritis Chest wall tenderness on palpation, or pleuritic from pneumonia Cont Lovastatin, Imdur, Toprol XL, Serial Alonzo and EKG -negative for any ACS Cardiology consulted-appreciate Input. Noncardiac Chest pain Cardiology signed off Resolved ECHO done showed * Left ventricular systolic function is normal. * Ejection Fraction = >70 %. * There is mild concentric left ventricular hypertrophy. * The left ventricular wall motion is normal. * Grade I diastolic dysfunction, (abnormal relaxation pattern) . HCAP- Recent hospitalization one month ago and recent Levaquin use for UTI at that time and possible Bronchitis as well. Risk for MRSA and possibly gram-negative bacteria. CXR showed Small parenchymal infiltrate/atelectasis left base. Started on Vanc/Zosyn Blood and sputum cultures -negative Complains of Cough-Tessalon aravind prescribed On Doxycycline to continue for a total of 10 days KARLEE on CKD III- creatine on admission was 2.6 Creatine trending down to 1.9 today hold ARB, metolazone, lasix for now Monitor Renal function May be having a new baseline avoid nephrotoxic agent DMII ISS/Lantus with [employer] consult. Of note patient was taken off insulin a few months ago and place on PO meds. HTN- controlled, cont Diltiazem, other meds held in setting of KARLEE Losartan and furosemide on hold P. Afib on Coumadin, INR 1.8. Monitor PT/INR COPD stable ] Obesity Chronic diastolic heart failure patient appears euvolemic, cont medical management Continue holding Lasix in setting of KARLEE Will resume Lasix on discharge H/O GI bleed in Aug 2016 DVT px On coumadin INR-1.8 today CODE STATUS DNR Consultants: Cardiology Current Inpatient Medications: Current Inpatient Medications Medications (Trade) Dose Ordered Sig/Rose Route Start Time Stop Time Status Last Admin Dose Admin Ondansetron HCl (Zofran Inj) 4 mg Q6H PRN IV 03/14/17 05:30 04/13/17 05:29 Nitroglycerin (Nitrostat Tab) 0.4 mg UD PRN SL 03/14/17 05:30 04/13/17 05:29 Morphine Sulfate (MoRPHine SULFATE INJ) 2 mg Q30M PRN IV 03/14/17 05:30 03/28/17 05:29 Polyethylene (Miralax Powder Packet) 17 gm DAILY PRN PO 03/14/17 05:30 04/13/17 05:29 Insulin Aspart (novoLOG ASPART) SLIDING SCALE If C... ACHS SC 03/14/17 07:00 04/13/17 06:59 03/17/17 12:26 7 UNITS Glucose (Glucose 40% Gel) 15-30 GRAMS 15 GRAMS... UD PRN PO 03/14/17 05:30 04/13/17 05:29 Glucose (Glucose Chew Tab) 4-8 Tablets 4 Tabl... UD PRN PO 03/14/17 05:30 04/13/17 05:29 Dextrose (Dextrose 50% 50ML Syringe) 25-50ML OF 50% DW IV FOR... UD PRN IV 03/14/17 05:30 04/13/17 05:29 Glucagon (Glucagon Inj) 1 mg UD PRN SQ 03/14/17 05:30 04/13/17 05:29 Miscellaneous Information (Consult Glycemic Management Pharmacy) 1 ea DAILY PRN N/A 03/14/17 05:36 04/13/17 05:35 Diltiazem HCl (Cardizem Cd Cap) 120 mg DAILY PO 03/14/17 09:00 04/13/17 08:59 03/17/17 08:20 120 MG Isosorbide Mononitrate (Imdur Ext Rel Tab) 60 mg DAILY PO 03/14/17 09:00 04/13/17 08:59 03/17/17 08:21 60 MG Levalbuterol (Xopenex 1.25MG/ 3ML Neb) 1.25 mg Q4 PRN INH 03/14/17 05:45 04/13/17 05:44 03/15/17 20:00 1.25 MG Metoprolol Succinate (Toprol Xl Tab) 12.5 mg DAILY PO 03/14/17 09:00 04/13/17 08:59 03/17/17 08:21 12.5 MG Warfarin Sodium (Coumadin Tab) 4 mg SuTuThSa@1600 PO 03/14/17 16:00 04/13/17 15:59 03/17/17 16:50 4 MG Warfarin Sodium (Coumadin Tab) 2 mg MoWeFr@1600 PO 03/16/17 16:00 04/15/17 15:59 03/16/17 16:48 2 MG Miscellaneous Information (Order Awaiting Action) 1 ea QS N/A 03/14/17 08:00 04/13/17 07:59 Miscellaneous Information (Order Awaiting Action) 1 ea QS N/A 03/14/17 08:00 04/13/17 07:59 Calcitriol (Rocaltrol Cap) 0.5 mcg QAM PO 03/14/17 09:00 04/13/17 08:59 03/17/17 08:21 0.5 MCG Lovastatin (Mevacor Tab) 80 mg DAILY@17 PO 03/14/17 17:00 04/13/17 16:59 03/17/17 16:51 80 MG Pantoprazole Sodium (Protonix Tab) 40 mg QAM PO 03/14/17 09:00 8/14/17 08:59 03/17/17 08:20 40 MG Miscellaneous (Iv Fluids Completed) 1 ea PRN PRN N/A 03/14/17 06:00 03/14/18 05:59 Benzonatate (Tessalon Perles Cap) 100 mg TID PO 03/15/17 14:00 04/14/17 13:59 03/17/17 14:04 100 MG Insulin Glargine (Lantus Solostar Pen) 10 units QPM SC 03/16/17 21:00 04/15/17 20:59 03/16/17 20:33 10 UNITS Doxycycline Hyclate (Vibramycin Cap) 100 mg BID PO 03/16/17 20:00 03/23/17 20:59 03/17/17 08:20 100 MG Insulin Glargine (Lantus Solostar Pen) 20 units QAM SC 03/17/17 08:30 04/16/17 08:29 03/17/17 08:27 20 UNITS
[2017-03-17 22:26] VITALS: BP 138/80; PULSE 55; TEMP 36.6; O2SAT 98
[2017-03-18 06:19] LABS: INR 1.9 (0.9-1.1); PROTHROMBIN TIME (PATIENT) 20.8 SECONDS (9.0-12.0)
[2017-03-18 06:28] LABS: BUN/CREATININE RATIO 20.6 (10-20); CALCIUM 9.2 mg/dl (8.5-10.1); CREATININE 1.8 mg/dl (0.60-1.20); POTASSIUM 3.3 mmol/L (3.5-5.1)
[2017-03-18 07:34] VITALS: BP 143/81; PULSE 61; TEMP 36.3; O2SAT 97
[2017-03-18] MEDS: VESICARE~ORDER AWAITING ACTION SCH (08:00)
[2017-03-18] MEDS ORDERED: POTASSIUM CHLORIDE 20 MEQ TABCR PO ONE (08:15)
[2017-03-18] MEDS: BENZONATATE 100MG CAP PO SCH ×2 (08:21→14:11)
[2017-03-18] MEDS: METOPROLOL SUCC 25MG EXT REL TAB PO SCH (08:22)
[2017-03-18] MEDS: ISOSORBIDE MONONITRATE 60 MG TABCR PO SCH (08:22)
[2017-03-18] MEDS: DILTIAZEM HCL 120 MG CAPCR PO SCH (08:22)
[2017-03-18] MEDS: PANTOprazole SOD 40 MG TAB PO SCH (08:22)
[2017-03-18] MEDS: CALCITRIOL 0.25 MCG CAP PO SCH (08:22)
[2017-03-18] MEDS: DOXYCYCLINE HYCLATE 100 MG CAP PO SCH (08:22)
[2017-03-18] MEDS: INSULIN ASPART 100 UNITS/ML 3 ML PEN SC SCH ×2 (08:33→12:38)
[2017-03-18] MEDS: INSULIN GLARGINE SOLOSTAR 100 UNITS/ML 3 ML PEN SC SCH (08:33)
--- NOTE | 2017-03-18 09:54 | Pharmacy Progress Note ---
Glycemic Control Progress Note Date of Service Mar 18, 2017. Scope Glycemic Pharmacist consulted for glycemic control to write orders per [facility] inpatient glycemic control protocol. Objective Accuchecks BSG (last 24hrs): Test 03/17/17 11:33 03/17/17 16:38 03/17/17 19:48 03/17/17 22:09 Bedside Glucose 143 mg/dl (70-90) 98 mg/dl (70-90) 195 mg/dl (70-90) 121 mg/dl (70-90) Test 03/18/17 05:38 03/18/17 07:51 Random Glucose 117 mg/dl (70-99) Bedside Glucose 141 mg/dl (70-90) HbA1c: Test 03/14/17 02:15 Hemoglobin A1c 7.2 % (4.5-5.6) H Recent Pertinent Medications Basal insulin: * Lantus 20 units SQ in AM * Lantus 10 units SQ in PM Bolus Insulin: * NovoLog SQ ACHS - Goal Range: Low 110 mg/dL - High 140 mg/dL - Correction Factor: 20 mg/dL/unit - Carb ratio of 1 unit per 7 grams CHO consumed Outpatient Anti-Diabetic Meds Basal insulin * Lantus 25 units SQ in AM * Lantus 11 units SQ in PM Bolus insulin * NovoLog SSI Assessment & Plan ASSESSMENT: * Pt receiving SQ basal bolus insulin regimen for hyperglycemia secondary to baseline DM and stress/infection * Patient is currently receiving an average of 54 units of insulin per day * 30 units of basal insulin (55%) * 24 units of prandial/correctional insulin (45%) * BSGs ranging 98 - 195 mg/dl over the past 24hrs * Changes needed to insulin regimen: * AM Fasting BSG = 141 mg/dl. This is in slightly above goal range for patient based on inpatient targets and co-morbidities. Dose was increased yesterday and is not at steady state, therefore, will continue same for now. * Post-prandial BSGs are mostly in range. Will slightly tighten CF/CR to achieve insulin regimen that is 50%:50% basal:prandial * Anticipated total daily dose = 60 units PLAN FOR INPATIENT GLYCEMIC CONTROL: * Basal insulin * Lantus 20 units SQ q AM * Lantus 10 units SQ q PM * Bolus insulin - tighten CF/CR * NovoLog per scale ACHS * Goal Range: Low 110 mg/dL - High 140 mg/dL * Correction Factor: 18 mg/dL/unit * Carb ratio of 1 unit per 6 grams CHO consumed RECOMMENDATIONS FOR DISCHARGE: * Continue home regimen at discharge as A1c shows appropriate glycemic control as an outpatient. * Please note that the plan above was derived based on current level of insulin resistance and hospital stress. These recommendations are appropriate for inpatient admission only. Plan of care upon discharge will need to be reassessed to avoid potential outpatient hypo/hyperglycemia. Thank you.
--- NOTE | 2017-03-18 11:10 | Progress Note ---
Medicine Progress Note Date & Time of Visit: Mar 18, 2017 at 11:06. Subjective Pt was seen and examined No acute distress Objective Last 8 Hrs Date Time Temp Pulse Resp B/P (MAP) Pulse Ox O2 Delivery O2 Flow Rate FiO2 03/18/17 08:30 Room Air 03/18/17 07:34 36.3 61 18 143/81 (101) 97 Room Air Physical Exam: General- No acute distress Head- atraumatic Eyes- PERRL, EOMI ENT- oropharynx clear Neck- supple, no JVD Lungs- mild cackles at base Heart- regular rhythm; no murmur Abdomen- normal bowel sounds, soft Extremities- no calf tenderness Neuro- alert, oriented x 3; PERRL, EOMI Skin- warm & dry Laboratory Results: Last 24 Hours Test 03/17/17 11:33 03/17/17 16:38 03/17/17 19:48 03/17/17 22:09 Bedside Glucose 143 mg/dl 98 mg/dl 195 mg/dl 121 mg/dl Test 03/18/17 05:38 03/18/17 07:51 Prothrombin Time 20.8 SECONDS Prothromb Time International Ratio 1.9 Sodium Level 140 mmol/L Potassium Level 3.3 mmol/L Chloride Level 106 mmol/L Carbon Dioxide Level 28 mmol/L Anion Gap 6.0 mmol/L Blood Urea Nitrogen 37 mg/dl Creatinine 1.80 mg/dl Est Creatinine Clear Calc Drug Dose 31.3 ml/min Estimated GFR () 30.7 Estimated GFR (Non- 26.5 BUN/Creatinine Ratio 20.6 Random Glucose 117 mg/dl Calcium Level 9.2 mg/dl Bedside Glucose 141 mg/dl Assessment & Plan Chest pain- Possible related to costochondritis Chest wall tenderness on palpation, or pleuritic from pneumonia Cont Lovastatin, Imdur, Toprol XL, Serial Alonzo and EKG -negative for any ACS Cardiology consulted-appreciate Input. Noncardiac Chest pain Cardiology signed off Resolved ECHO done showed * Left ventricular systolic function is normal. * Ejection Fraction = >70 %. * There is mild concentric left ventricular hypertrophy. * The left ventricular wall motion is normal. * Grade I diastolic dysfunction, (abnormal relaxation pattern) . HCAP- Recent hospitalization one month ago and recent Levaquin use for UTI at that time and possible Bronchitis as well. Risk for MRSA and possibly gram-negative bacteria. CXR showed Small parenchymal infiltrate/atelectasis left base. Started on Vanc/Zosyn Blood and sputum cultures -negative Complains of Cough-Tessalon aravind prescribed Continue Doxycycline to complete for a total of 10 days KARLEE on CKD III- creatine on admission was 2.6 Creatine trending down to 1.8 today, near baseline Resume ARB, metolazone, lasix for now will decrease lasix from 80mg to 40mg BID will do close follow up with her PCP Monitor Renal function May be having a new baseline avoid nephrotoxic agent DMII ISS/Lantus with [employer] consult. Of note patient was taken off insulin a few months ago and place on PO meds. HTN- controlled, cont Diltiazem, other meds held in setting of KARLEE Resume on discharge Losartan and furosemide P. Afib on Coumadin, INR 1.9 Follow up with the coag clinic Monitor PT/INR COPD stable Obesity Chronic diastolic heart failure patient appears euvolemic, cont medical management Continue holding Lasix in setting of KARLEE Lasix decrease to 40mg BID Monitor for fluid overload H/O GI bleed in Aug 2016 DVT px On coumadin INR-1.9 today CODE STATUS DNR Consultants: Cardiology Current Inpatient Medications: Current Inpatient Medications Medications (Trade) Dose Ordered Sig/Rose Route Start Time Stop Time Status Last Admin Dose Admin Ondansetron HCl (Zofran Inj) 4 mg Q6H PRN IV 03/14/17 05:30 04/13/17 05:29 Nitroglycerin (Nitrostat Tab) 0.4 mg UD PRN SL 03/14/17 05:30 04/13/17 05:29 Morphine Sulfate (MoRPHine SULFATE INJ) 2 mg Q30M PRN IV 03/14/17 05:30 03/28/17 05:29 Polyethylene (Miralax Powder Packet) 17 gm DAILY PRN PO 03/14/17 05:30 04/13/17 05:29 Insulin Aspart (novoLOG ASPART) SLIDING SCALE If C... ACHS SC 03/14/17 07:00 04/13/17 06:59 03/18/17 08:33 9 UNITS Glucose (Glucose 40% Gel) 15-30 GRAMS 15 GRAMS... UD PRN PO 03/14/17 05:30 04/13/17 05:29 Glucose (Glucose Chew Tab) 4-8 Tablets 4 Tabl... UD PRN PO 03/14/17 05:30 04/13/17 05:29 Dextrose (Dextrose 50% 50ML Syringe) 25-50ML OF 50% DW IV FOR... UD PRN IV 03/14/17 05:30 04/13/17 05:29 Glucagon (Glucagon Inj) 1 mg UD PRN SQ 03/14/17 05:30 04/13/17 05:29 Miscellaneous Information (Consult Glycemic Management Pharmacy) 1 ea DAILY PRN N/A 03/14/17 05:36 04/13/17 05:35 Diltiazem HCl (Cardizem Cd Cap) 120 mg DAILY PO 03/14/17 09:00 04/13/17 08:59 03/18/17 08:22 120 MG Isosorbide Mononitrate (Imdur Ext Rel Tab) 60 mg DAILY PO 03/14/17 09:00 04/13/17 08:59 03/18/17 08:22 60 MG Levalbuterol (Xopenex 1.25MG/ 3ML Neb) 1.25 mg Q4 PRN INH 03/14/17 05:45 04/13/17 05:44 03/15/17 20:00 1.25 MG Metoprolol Succinate (Toprol Xl Tab) 12.5 mg DAILY PO 03/14/17 09:00 04/13/17 08:59 03/18/17 08:22 12.5 MG Warfarin Sodium (Coumadin Tab) 4 mg SuTuThSa@1600 PO 03/14/17 16:00 04/13/17 15:59 03/17/17 16:50 4 MG Warfarin Sodium (Coumadin Tab) 2 mg MoWeFr@1600 PO 03/16/17 16:00 04/15/17 15:59 03/16/17 16:48 2 MG Miscellaneous Information (Order Awaiting Action) 1 ea QS N/A 03/14/17 08:00 04/13/17 07:59 Miscellaneous Information (Order Awaiting Action) 1 ea QS N/A 03/14/17 08:00 04/13/17 07:59 Calcitriol (Rocaltrol Cap) 0.5 mcg QAM PO 03/14/17 09:00 04/13/17 08:59 03/18/17 08:22 0.5 MCG Lovastatin (Mevacor Tab) 80 mg DAILY@17 PO 03/14/17 17:00 04/13/17 16:59 03/17/17 16:51 80 MG Pantoprazole Sodium (Protonix Tab) 40 mg QAM PO 03/14/17 09:00 04/13/17 08:59 03/18/17 08:22 40 MG Miscellaneous (Iv Fluids Completed) 1 ea PRN PRN N/A 03/14/17 06:00 03/14/18 05:59 Benzonatate (Tessalon Perles Cap) 100 mg TID PO 03/15/17 14:00 04/14/17 13:59 03/18/17 08:21 100 MG Insulin Glargine (Lantus Solostar Pen) 10 units QPM SC 03/16/17 21:00 04/15/17 20:59 03/17/17 20:13 10 UNITS Doxycycline Hyclate (Vibramycin Cap) 100 mg BID PO 03/16/17 20:00 03/23/17 20:59 03/18/17 08:22 100 MG Insulin Glargine (Lantus Solostar Pen) 20 units QAM SC 03/17/17 08:30 04/16/17 08:29 03/18/17 08:33 20 UNITS
[2017-03-18 13:56] VITALS: BP 143/81; PULSE 61; TEMP 36.3; O2SAT 97
[2017-03-18] MEDS ORDERED: BENZ100C7 PO (15:02)
[2017-03-18] MEDS ORDERED: FURO80TA63 PO (15:02)
[2017-03-18] MEDS ORDERED: DXY100 PO (15:02)
--- NOTE | 2017-03-18 15:11 | Discharge Instructions ---
Discharge Instructions Date of Service Mar 18, 2017. Admission Reason for Admission: Chest Pain Discharge Discharge Diagnosis / Problem: Chest pain, Pneumonia, Acute kidney injury on CKD stage 3 Discharge Goals Goal(s): Decrease discomfort, Improve function, Improve disease control Activity Recommendations Activity Limitations: resume your previous activity (as tolerated) . Instructions / Follow-Up Instructions / Follow-Up Discharge home with home health Follow up appointment with your physician Dr. Perez (Dr. Waterman colleague) on @ 1:45 Follow up with the coumadin clinic on 03/23 Complete the course of doxycycline antibiotic check BMP within 1 week to monitor kidney function and electrolytes Lasix decreased to 40mg twice a day, your physician will titrate it up if needed Fall precaution Continue physical therapy Continue oxygen at night Fluid restriction daily Current Hospital Diet Patient's current hospital diet: Diabetes Type 2 Diet, AHA Diet (Heart Healthy) Discharge Diet Recommended Diet: AHA Diet (Heart Healthy), Low Sodium Diet (2gm Na) Pending Studies Studies pending at discharge: no Laboratory Results Hemoglobin A1c Test 03/14/17 02:15 Range/Units Estimated Average Glucose 160 mg/dl Hemoglobin A1c 7.2 H 4.5-5.6 % Medical Emergencies . Who to Call and When: Medical Emergencies: If at any time you feel your situation is an emergency, please call 911 immediately. . Non-Emergent Contact Non-Emergency issues call your: Primary Care Provider Call Non-Emergent contact if: you have any medication questions . . "Provider Documentation" section prepared by Uche Gibson. . VTE Core Measure Inpt VTE Proph given/why not?: Unfractionated heparin SQ
[2017-03-18] MEDS ORDERED: FURO40TA3 PO (15:18)
[2017-03-18] MEDS: WARFARIN SOD 2 MG TAB PO SCH (15:30)
--- NOTE | 2017-03-20 14:40 | Discharge Summary ---
Discharge Summary Date of Service Mar 20, 2017. Discharge Summary Admission Date: Mar 17, 2017 at 18:34 Discharge Date: Mar 18, 2017 Discharge Disposition: Home with services Principal Diagnosis: Chest pain Secondary Diagnoses/Problems: Pneumonia KARLEE on CKD DM II P. Afib Diastolic CHF COPD OBESITY Procedures: CHEST ONE VIEW PORTABLE CLINICAL HISTORY: cp dyspnea COMPARISON STUDY: 02/13/2017 FINDINGS: Slight increase in density left base. Mild emphysematous change. No significant cardiac enlargement. IMPRESSION: Small parenchymal infiltrate/atelectasis left base. Consultations: Cardiology Medication Reconciliation New Medications: Benzonatate (Benzonatate) 100 Mg Cap 100 MG PO TID PRN for Cough for 5 Days, CAP Doxycycline Hyclate (Doxycycline Hyclate) 100 Mg Cap 100 MG PO BID for 6 Days, CAP Changed Medications: Furosemide (Lasix) 40 Mg Tab 1 TAB PO BID for 30 Days, #60 TAB 5 Refills (Changed from: Furosemide (Lasix) 80 Mg Tab 40 Mg PO BID 30 Days ) Continued Medications: Calcitriol (Rocaltrol) 0.5 Mcg Cap 0.5 MCG PO DAILY Diltiazem Hcl Coated Beads (Diltiazem Hcl Er) 120 Mg Cap 120 MG PO DAILY Ferrous Sulfate (Ferrous Sulfate) 325 Mg Tab 325 MG PO DAILY Glucose-Vitamin C (Glucose) 1 Chw Chw 1 TAB PO UD PRN for LOW SUGAR Home O2 Therapy (Oxygen) Gas LITERS NA QPM Insulin Aspart (Novolog) 100 Units/Ml Inj ACHS SLIDING SCALE Insulin Glargine (Lantus) 100 Unit/Ml Inj 25 UNITS SQ QAM, VIAL Insulin Glargine (Lantus) 100 Unit/Ml Inj 11 UNITS SQ EVENING MEAL, VIAL Isosorbide Mononitrate (Isosorbide Mononitrate ER) 60 Mg Tab 60 MG PO DAILY Levalbuterol Hcl (Levalbuterol Hcl) 1.25 Mg/3 Ml Neb 3 ML INH Q4 PRN for SOB/Wheezing Losartan Potassium (Cozaar) 100 Mg Tab 100 MG PO DAILY Lovastatin (Mevacor) 40 Mg Tab 80 MG PO HS 2 TABLETS AT BEDTIME Metolazone (Zaroxolyn) 2.5 Mg Tab 2.5 MG PO WK, TAB Takes on Wednesdays Metoprolol Succinate (Metoprolol Succinate ER) 25 Mg Tabcr 12.5 MG PO DAILY, #15 Nitroglycerin (Nitrostat) 0.4 Mg Sub 0.4 MG UT PRN PRN for Chest Pain, BTL Omeprazole (Omeprazole) 20 Mg Tab 20 MG PO DAILY Solifenacin (Vesicare) 5 Mg Tab 5 MG PO DAILY, TAB Umeclidinium-Vilanterol (Anoro Ellipta 62.5-25 Mcg/INH) 1 Aer Aer 1 PUFF INH DAILY Warfarin Sod (Jantoven) 4 Mg Tab 4 MG PO 5XWK SUN, , , SAT Warfarin Sodium (Coumadin) 2 Mg Tab 2 MG PO 3XWK MON, WED, FRI Admission Information HPI (per Admitting provider): 76 yo F with chest discomfort this evening while getting ready for bed. The pain was intense and described as "hard" and on the right anterior chest with radiation to the center of her chest and up into her R jaw area. This pain lasted longer that her usual discomfort and didn't go away with rest. She called 911 and received 3-4 Nitro in the ambulance before her discomfort finally resolved. She is obese and does have a h/o stent placement in 2000 and had a repeat catheterization Aug 2014 without significant progression of disease. She also has longstanding hypertension with hypertensive heart disease. She is allergic to ASA so this was not given. She denies any associated symptoms of SOB, lightheadedness, sweating, or numbness. She denies any nausea, vomiting, headaches, abdominal pain or other issues aside from the chest discomfort. She does report that she has been coughing nonstop for the past few days and has "not been able to get anything up." Denies fevers or chills and no congestion. 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 She was also recently seen in the clinic by Dr. Do for chest pain a couple of months ago which was thought to be of noncardiac etiology at that time. An TTE was performed 02/14 revealing EF>70%, mild concentric LVH, LAE and normal LV function. Physical Exam (per Admitting): GEN: obese, in no acute distress, alert and appropriate HEENT: NC/AT, PERRL, normal sclerae, MMM, pharynx non-acute, whitish substance noted on tongue, partials in place. CARDIO: reg rate, S1/2 heard without m/g/r, entire anterior chest wall is exquisitely TTP LUNGS: CTA bilaterally, no crackles, rales or wheezes, good diaphragmatic excursion ABD: soft, non-tender, non-distended, no rebound or guarding, +BS EXTREMITY: RP and DP palpable 2+ bilat, LE swelling present bilaterally but no edema, extremities are warm and well-perfused NEURO: CN 2-12 grossly intact, no gross focal deficits MUSC: 5/5 strength throughout, moves all extremities equally SKIN: warm and dry Hospital Course Chest pain- Possible related to costochondritis Chest wall tenderness on palpation, or pleuritic from pneumonia Cont Lovastatin, Imdur, Toprol XL, Serial Alonzo and EKG -negative for any ACS Cardiology consulted-appreciate Input. Noncardiac Chest pain Cardiology signed off Resolved ECHO done showed * Left ventricular systolic function is normal. * Ejection Fraction = >70 %. * There is mild concentric left ventricular hypertrophy. * The left ventricular wall motion is normal. * Grade I diastolic dysfunction, (abnormal relaxation pattern) . HCAP- Recent hospitalization one month ago and recent Levaquin use for UTI at that time and possible Bronchitis as well. Risk for MRSA and possibly gram-negative bacteria. CXR showed Small parenchymal infiltrate/atelectasis left base. Started on Vanc/Zosyn Blood and sputum cultures -negative Complains of Cough-Tessalon aravind prescribed Continue Doxycycline to complete for a total of 10 days KARLEE on CKD III- creatine on admission was 2.6 Creatine trending down to 1.8 today, near baseline Resume ARB, metolazone, lasix for now will decrease lasix from 80mg to 40mg BID will do close follow up with her PCP Monitor Renal function May be having a new baseline avoid nephrotoxic agent DMII ISS/Lantus with [employer] consult. Of note patient was taken off insulin a few months ago and place on PO meds. HTN- controlled, cont Diltiazem, other meds held in setting of KARLEE Resume on discharge Losartan and furosemide P. Afib on Coumadin, INR 1.9 Follow up with the coag clinic Monitor PT/INR COPD stable Obesity Chronic diastolic heart failure patient appears euvolemic, cont medical management Continue holding Lasix in setting of KARLEE Lasix decrease to 40mg BID Monitor for fluid overload H/O GI bleed in Aug 2016 DVT px On coumadin INR-1.9 today CODE STATUS DNR Total time spent on discharge = 35 minutes This includes examination of the patient, discharge planning, medication reconciliation, and communication with other providers. Discharge Instructions DI: Medical v4 Discharge Instructions Date of Service Mar 18, 2017. Admission Reason for Admission: Chest Pain Discharge Discharge Diagnosis / Problem: Chest pain, Pneumonia, Acute kidney injury on CKD stage 3 Discharge Goals Goal(s): Decrease discomfort, Improve function, Improve disease control Activity Recommendations Activity Limitations: resume your previous activity (as tolerated) . Instructions / Follow-Up Instructions / Follow-Up Discharge home with home health Follow up appointment with your physician Dr. Perez (Dr. Waterman colleague) on @ 1:45 Follow up with the coumadin clinic on 03/23 Complete the course of doxycycline antibiotic check BMP within 1 week to monitor kidney function and electrolytes Lasix decreased to 40mg twice a day, your physician will titrate it up if needed Fall precaution Continue physical therapy Continue oxygen at night Fluid restriction daily Current Hospital Diet Patient's current hospital diet: Diabetes Type 2 Diet, AHA Diet (Heart Healthy) Discharge Diet Recommended Diet: AHA Diet (Heart Healthy), Low Sodium Diet (2gm Na) Pending Studies Studies pending at discharge: no Laboratory Results Hemoglobin A1c Test 03/14/17 02:15 Range/Units Estimated Average Glucose 160 mg/dl Hemoglobin A1c 7.2 H 4.5-5.6 % Medical Emergencies . Who to Call and When: Medical Emergencies: If at any time you feel your situation is an emergency, please call 911 immediately. . Non-Emergent Contact Non-Emergency issues call your: Primary Care Provider Call Non-Emergent contact if: you have any medication questions . . "Provider Documentation" section prepared by Uche Gibson. . VTE Core Measure Inpt VTE Proph given/why not?: Unfractionated heparin SQ Additional Copies To Jose Rafael Perez III, M.D. Devan, Kerry Suárez D.O.
[2017-03-26] MEDS ORDERED: LVQ750 PO (12:48)
[2017-03-26] MEDS ORDERED: LCTX PO (12:48)
== END 2017-03-18 16:00 | disposition home health service (06) | DRG 205 ==
LOC: EDBD 02:00 → C.EDB 02:01 → C.2T 05:30 → ENRESERV 05:44 → C.4E 03-16 15:39 → OBSVTOIN 03-17 18:34
PROVIDERS: ADMIT Hospitalist; ATTEND Internal Medicine
DX: M94.0 Chondrocostal junction syndrome [Tietze] (principal); J15.212 Pneumonia due to Methicillin resistant Staphylococcus aureus; N17.9 Acute kidney failure, unspecified; I50.32 Chronic diastolic (congestive) heart failure; I13.0 Hypertensive heart and chronic kidney disease with heart failure and stage 1 through stage 4 chronic kidney disease, or unspecified chronic kidney disease; J98.11 Atelectasis; Z79.01 Long term (current) use of anticoagulants; T50.2X5A Adverse effect of carbonic-anhydrase inhibitors, benzothiadiazides and other diuretics, initial encounter; J44.9 Chronic obstructive pulmonary disease, unspecified; N18.3 Chronic kidney disease, stage 3 (moderate); Z86.73 Personal history of transient ischemic attack (TIA), and cerebral infarction without residual deficits; E11.43 Type 2 diabetes mellitus with diabetic autonomic (poly)neuropathy; K21.9 Gastro-esophageal reflux disease without esophagitis; I48.0 Paroxysmal atrial fibrillation; I25.119 Atherosclerotic heart disease of native coronary artery with unspecified angina pectoris; Z86.711 Personal history of pulmonary embolism; Z96.642 Presence of left artificial hip joint; Z87.891 Personal history of nicotine dependence; Z79.4 Long term (current) use of insulin; Z88.6 Allergy status to analgesic agent; E78.5 Hyperlipidemia, unspecified; Z95.5 Presence of coronary angioplasty implant and graft; E66.9 Obesity, unspecified; E87.6 Hypokalemia; Y92.019 Unspecified place in single-family (private) house as the place of occurrence of the external cause; Z66 Do not resuscitate; I25.2 Old myocardial infarction

== ENCOUNTER 2017-03-20 11:22 | Observation (INO) | payer OTHER ==
[~2017-03-20] VITALS: Ht 165.1 cm; Wt 106.5 kg
[~2017-03-20 11:22] MED LIST changes: +BENZ100C7 PO; +DXY100 PO; +FURO40TA3 PO; -FURO80TA63 PO; -LCTX PO; -LVQ750 PO; +METO2.5T PO; -[UNRECOGNIZED DRUG - CODE] INH
[2017-03-20] MEDS ORDERED: ALBUT/IPRATROP 3MG/0.5MG NEB 3 ML VIAL INH ONE (12:00)
--- NOTE | 2017-03-20 12:31 | DIAGNOSTIC IMAGING REPORT ---
CHEST ONE VIEW PORTABLE CLINICAL HISTORY: Pt c/o SOB dyspnea COMPARISON STUDY: 03/14/2017 FINDINGS: Mild stable cardiomegaly. Small parenchymal infiltrate right base. Mild emphysematous change. IMPRESSION: Small parenchymal infiltrate right base. Mild stable cardiomegaly. The above report was generated using voice recognition software. It may contain grammatical, syntax or spelling errors. Electronically signed by: Jaleel Xie M.D. 03/20/2017 12:29 PM Dictated Date/Time: 03/20/2017 12:29 PM
[2017-03-20] MEDS ORDERED: PIPERACILLIN/TAZOBACTAM 4.5 GM/100ML D5W IV STA (12:48)
[2017-03-20] MEDS ORDERED: VANCOMYCIN 1GM/270ML NSS IV STA (12:48)
[2017-03-20] MEDS ORDERED: LEVAQUIN 750MG / 150ML D5W IV STA (12:48)
[2017-03-20] MEDS ORDERED: SODIUM CHLORIDE 0.9% 500ML 500 ML IV STA (12:48)
[2017-03-20] MEDS ORDERED: POTASSIUM CHLORIDE 10 MEQ TABCR PO STA (12:48)
--- NOTE | 2017-03-20 12:49 | EMERGENCY ROOM VISIT NOTE ---
History Report prepared by Jemimaibkaleigh: Jennifer Savage Under the Supervision of: Dr. Pratik Campbell M.D. First contact with patient: 11:45 Chief Complaint: SHORTNESS OF BREATH Stated Complaint: BREATHING DIFFICULTY Nursing Triage Summary: Pt arrives to ER via ALS with c/o shortness of breath. Pt was recently here for pneumonia discharged on the . Pt is wearing O2 at night. Awoke this AM and felt increasingly short of breath. Duoneb x1 administered prior to arrival. Upon arrival to ER pt reports shortness of breath, lungs are diminished. O2 saturation 99-100% on RA. History of Present Illness The patient is a 77 year old female who presents to the Emergency Room with complaints of worsening shortness of breath that started this morning. The patient came to the ED via ambulance and received a DuoNeb en route. The patient denies abdominal pain. The patient states that she typically wears 3.5 L of nasal cannula oxygen at night at home. Per nursing staff notes, the patient was discharged from the hospital 2 days ago after being admitted for pneumonia. Source of History: patient, nursing staff Onset: this morning Position: chest Quality: other (shortness of breath) Timing: worsening Associated Symptoms: No abdominal pain Review of Systems See HPI for pertinent positives & negatives. A total of 10 systems reviewed and were otherwise negative. Past Medical & Surgical Medical Problems: (1) KARLEE (acute kidney injury) (2) Asthma (3) C. difficile colitis (4) Chest pain (5) Chest pain (6) Chronic kidney disease (7) COPD (chronic obstructive pulmonary disease) (8) CVA (cerebral vascular accident) (9) Diabetes mellitus, type II (10) Diabetic foot ulcer (11) Diabetic peripheral neuropathy associated with type 2 diabetes mellitus (12) Foot deformity (13) Gastroparesis (14) GERD (gastroesophageal reflux disease) (15) History of coronary artery disease (16) Hyperlipidemia (17) Hypertension (18) Loss of sensation (19) Pulmonary embolism Surgical Problems: (1) H/O heart artery stent (2) History of appendectomy (3) History of total left hip arthroplasty (4) Hx of removal of ovary Family History No pertinent family history Social History Smoking Status: Former Smoker Alcohol Use: none Drug Use: none Marital Status: Housing Status: lives alone Occupation Status: retired Current/Historical Medications Scheduled Calcitriol (Rocaltrol), 0.5 MCG PO DAILY Diltiazem Hcl Coated Beads (Diltiazem Hcl Er), 120 MG PO DAILY Doxycycline Hyclate (Doxycycline Hyclate), 100 MG PO BID Ferrous Sulfate (Ferrous Sulfate), 325 MG PO DAILY Furosemide (Lasix), 1 TAB PO BID Home O2 Therapy (Oxygen), LITERS NA QPM Insulin Aspart (Novolog), ACHS Insulin Glargine (Lantus), 25 UNITS SQ QAM Insulin Glargine (Lantus), 11 UNITS SQ EVENING MEAL Isosorbide Mononitrate (Isosorbide Mononitrate ER), 60 MG PO DAILY Losartan Potassium (Cozaar), 100 MG PO DAILY Lovastatin (Mevacor), 80 MG PO HS Metolazone (Zaroxolyn), 2.5 MG PO WK Metoprolol Succinate (Metoprolol Succinate ER), 12.5 MG PO DAILY Omeprazole (Omeprazole), 20 MG PO DAILY Solifenacin (Vesicare), 5 MG PO DAILY Umeclidinium-Vilanterol (Anoro Ellipta 62.5-25 Mcg/INH), 1 PUFF INH DAILY Warfarin Sod (Jantoven), 4 MG PO 5XWK Warfarin Sodium (Coumadin), 2 MG PO 3XWK Scheduled PRN Benzonatate (Benzonatate), 100 MG PO TID PRN for Cough Glucose-Vitamin C (Glucose), 1 TAB PO UD PRN for LOW SUGAR Levalbuterol Hcl (Levalbuterol Hcl), 3 ML INH Q4 PRN for SOB/Wheezing Nitroglycerin (Nitrostat), 0.4 MG UT PRN PRN for Chest Pain Allergies Coded Allergies: Codeine (Verified Allergy, Unknown, UNKNOWN, 03/20/17) INFO FROM PT Aspirin (Verified Adverse Reaction, Intermediate, (ULCER), 03/20/17) Venlafaxine (Verified Adverse Reaction, Intermediate, DROWINESS/ CONFUSION , 03/20/17) Cephalexin (Verified Adverse Reaction, Mild, DROWSINESS, UNABLE TO DRIVE, UPSET STOMACH, 03/20/17) Oxycodone (Verified Adverse Reaction, Mild, n/v, 03/20/17) gmg Physical Exam Vital Signs Date Time Temp Pulse Resp B/P (MAP) Pulse Ox O2 Delivery O2 Flow Rate FiO2 03/20/17 14:30 85 16 100 Nasal Cannula 2.0 03/20/17 13:58 89 03/20/17 13:30 88 22 160/60 100 Room Air 03/20/17 12:30 68 22 156/65 100 Nebulizer 8.0 03/20/17 12:14 99 Room Air 03/20/17 11:41 61 03/20/17 11:29 99 Room Air 03/20/17 11:29 36.5 69 24 163/63 99 Room Air 03/20/17 11:29 100 Room Air Physical Exam GENERAL: Patient is a healthy-appearing well-nourished female. Patient appears to be short of breath. HEAD: Normocephalic atraumatic EYES: Ocular movements intact pupils equal and react to light OROPHARYNX mucous membranes are moist no exudates present no erythema or edema present NECK: Supple no nuchal rigidity CHEST: Good equal expansion LUNGS: Clear and equal to auscultation CARDIAC: Normal S1 and S2 ABDOMEN: Soft nontender no guarding BACK: No CVA tenderness EXTREMITIES: No pain upon palpation normal muscle strength in all groups no clubbing cyanosis or edema NEURO: Patient is following commands and answering questions appropriately. Alert and oriented x3 Cranial Nerves 2-12 grossly intact Medical Decision & Procedures ER Provider Diagnostic Interpretation: Radiology results as stated below per my review and radiologist interpretation: CHEST ONE VIEW PORTABLE FINDINGS: Mild stable cardiomegaly. Small parenchymal infiltrate right base. Mild emphysematous change. IMPRESSION: Small parenchymal infiltrate right base. Mild stable cardiomegaly. The above report was generated using voice recognition software. It may contain grammatical, syntax or spelling errors. Electronically signed by: Jaleel Xei M.D. 03/20/2017 12:29 PM Dictated Date/Time: 03/20/2017 12:29 PM Laboratory Results 03/20/17 12:40 Red Blood Count 3.77, Mean Corpuscular Volume 91.0, Mean Corpuscular Hemoglobin 30.2, Mean Corpuscular Hemoglobin Concent 33.2, Mean Platelet Volume 11.2, Neutrophils (%) (Auto) 60.7, Lymphocytes (%) (Auto) 32.6, Monocytes (%) (Auto) 5.7, Eosinophils (%) (Auto) 0.6, Basophils (%) (Auto) 0.2, Neutrophils # (Auto) 3.28, Lymphocytes # (Auto) 1.76, Monocytes # (Auto) 0.31, Eosinophils # (Auto) 0.03, Basophils # (Auto) 0.01 03/20/17 12:40 Test 03/20/17 12:20 03/20/17 12:40 03/20/17 12:45 03/20/17 12:46 Influenza Type A (RT-PCR) Neg for Influ A (NEG) Influenza Type A Antigen Neg for Influ A (NEG) Influenza Type B Antigen Neg for Influ B (NEG) Influenza Type B (RT-PCR) Neg for Influ B (NEG) White Blood Count 5.40 K/uL (4.8-10.8) Red Blood Count 3.77 M/uL (4.2-5.4) Hemoglobin 11.4 g/dL (12.0-16.0) Hematocrit 34.3 % (37-47) Mean Corpuscular Volume 91.0 fL (80-100) Mean Corpuscular Hemoglobin 30.2 pg (25-34) Mean Corpuscular Hemoglobin Concent 33.2 g/dl (32-36) Platelet Count 124 K/uL (130-400) Mean Platelet Volume 11.2 fL (7.4-10.4) Neutrophils (%) (Auto) 60.7 % Lymphocytes (%) (Auto) 32.6 % Monocytes (%) (Auto) 5.7 % Eosinophils (%) (Auto) 0.6 % Basophils (%) (Auto) 0.2 % Neutrophils # (Auto) 3.28 K/uL (1.4-6.5) Lymphocytes # (Auto) 1.76 K/uL (1.2-3.4) Monocytes # (Auto) 0.31 K/uL (0.11-0.59) Eosinophils # (Auto) 0.03 K/uL (0-0.5) Basophils # (Auto) 0.01 K/uL (0-0.2) RDW Standard Deviation 46.6 fL (36.4-46.3) RDW Coefficient of Variation 14.0 % (11.5-14.5) Immature Granulocyte % (Auto) 0.2 % Immature Granulocyte # (Auto) 0.01 K/uL (0.00-0.02) Prothrombin Time 20.3 SECONDS (9.0-12.0) Prothromb Time International Ratio 1.8 (0.9-1.1) Est Creatinine Clear Calc Drug Dose 20.5 ml/min Estimated GFR () 18.7 Estimated GFR (Non- 16.1 BUN/Creatinine Ratio 21.3 (10-20) Calcium Level 9.7 mg/dl (8.5-10.1) Total Bilirubin 0.7 mg/dl (0.2-1) Aspartate Amino Transf (AST/SGOT) 12 U/L (15-37) Alanine Aminotransferase (ALT/SGPT) 17 U/L (12-78) Alkaline Phosphatase 99 U/L (45-117) Total Creatine Kinase 51 U/L (26-192) Creatine Kinase MB 0.6 ng/ml (0.5-3.6) Creatine Kinase MB Ratio 1.2 (0-3.0) Troponin I < 0.015 ng/ml (0-0.045) Total Protein 6.6 gm/dl (6.4-8.2) Albumin 3.5 gm/dl (3.4-5.0) Globulin 3.1 gm/dl (2.5-4.0) Albumin/Globulin Ratio 1.1 (0.9-2) Bedside D-Dimer 217 ng/mlFEU (0-450) Bedside Hemoglobin 11.2 g/dl (12.0-16.0) Bedside Hematocrit 33 % (37-47) Bedside Sodium 135 mEq/L (135-144) Bedside Potassium 3.0 mEq/L (3.3-5.0) Bedside Chloride 94 mEq/L (101-112) Bedside Total CO2 28 mEq/l (24-31) Anion Gap 18.0 mmol/L (16-25) Bedside Blood Urea Nitrogen 50 mg/dl (7-18) Bedside Creatinine 2.6 mg/dl (0.6-1.3) Bedside Glucose (other) 225 mg/dl (70-99) Bedside Ionized Calcium (Kendy) 1.14 mmol/l (1.12-1.32) Test 03/20/17 13:49 Bedside Glucose 223 mg/dl (70-90) Labs reviewed by ED physician. Medications Administered Medications (Trade) Dose Ordered Sig/Rose Route Start Time Stop Time Status Last Admin Dose Admin Albuterol/ Ipratropium (Duoneb) 12 ml ONE ONCE INH 03/20/17 12:00 03/20/17 12:02 DC 03/20/17 12:26 12 ML Potassium Chloride (Klor-Con M10) 40 meq NOW STAT PO 03/20/17 12:48 03/20/17 12:52 DC 03/20/17 13:12 40 MEQ Sodium Chloride 500 ml @ 999 mls/hr Q31M STAT IV 03/20/17 12:48 03/20/17 13:18 DC 03/20/17 13:13 999 MLS/HR Piperacillin Sod/ Tazobactam Sod (Zosyn Iv) 4.5 gm NOW STAT IV 03/20/17 12:48 03/20/17 12:52 DC 03/20/17 14:41 4.5 GM Levofloxacin (Levaquin / D5W) 750 mg NOW STAT IV 03/20/17 12:48 03/20/17 12:52 DC 03/20/17 15:17 750 MG Vancomycin HCl (Vancomycin 1gm/ 270ml Nss) 1 gm NOW STAT IV 03/20/17 12:48 03/20/17 12:52 DC 03/20/17 15:17 1 GM ECG Indication: SOB/dyspnea Rate (beats per minute): 61 Rhythm: normal sinus Findings: no acute ischemic change, no ectopy, other (old inferior infarct) ED Course 1147: Past medical records reviewed. The patient was evaluated in room C2. A complete history and physical examination was performed. 1200: Ordered DuoNeb 12 ml INH 1248: Ordered Vancomycin HCl 1 gm IV, Levofloxacin 750 mg IV, Zosyn 4.5 gm IV, Sodium Chloride 500 ml @ 999 mls/hr IV, Potassium Chloride 40 meq PO 1310: Upon reexamination the patient is resting comfortably. I discussed results and treatment plan with the patient. She verbalizes agreement and understanding. The patient will be evaluated for further management. 1331: I [facility] the patient's [facility], he has agreed to evaluate the patient for further management and care. Medical Decision Differential diagnosis: Etiologies such as infections, reactive airway disease, pneumonia, pneumothorax , COPD, CHF, cardiac ischemia, pulmonary embolism, musculoskeletal, gastrointestinal, as well as others were entertained. This is a 77-year-old female who presents emergency department complaining of breathing difficulty. The patient is hypoxic on room air. She does have a slight pneumonia on chest x-ray. I was going to send the patient for a CAT scan of the chest however the patient's creatinine has bumped up to 2.5. The patient was pancultured up and started on Zosyn and Levaquin and vancomycin. I did discuss the case with the hospitalist service who agreed to admit the patient. Patient was in agreement with the treatment plan. Medication Reconcilliation Current Medication List: was personally reviewed by me Blood Pressure Screening Patient's blood pressure: Elevated blood pressure Blood pressure disposition: Did not require urgent referral Consults Time Called: 1316 Consulting Physician: Dr. Maia Santos Returned Call: 1331 I discussed the patient's case with Dr. Carvalho of the [facility] Hospitalist Service, he has agreed to evaluate the patient for further management and care. Impression Primary Impression: Pneumonia Scribe Attestation The scribe's documentation has been prepared under my direction and personally reviewed by me in its entirety. I confirm that the note above accurately reflects all work, treatment, procedures, and medical decision making performed by me. Departure Information Dispostion Being Evaluated By Hospitalist Referrals Kerry Waterman D.O. (PCP) Patient Instructions My [facility] Problem Qualifiers Primary Impression: Pneumonia Pneumonia type: due to unspecified organism Laterality: right Lung location : lower lobe of lung Qualified Codes: J18.1 - Lobar pneumonia, unspecified organism
[2017-03-20 12:57] LABS: ISTAT CREATININE 2.6 mg/dl (0.6-1.3); ISTAT HEMOGLOBIN 11.2 g/dl (12.0-16.0); ISTAT IONIZED CALCIUM 1.14 mmol/l (1.12-1.32)
[2017-03-20 13:03] LABS: BASO % 0.2 %; BASO ABS # 0.01 K/uL (0-0.2); COMPLETE YES; EOS % 0.6 %; HEMATOCRIT 34.3 % (37-47); IG% 0.2 %; LYMPH % 32.6 %; LYMPH ABS # 1.76 K/uL (1.2-3.4); MEAN CORPUSCULAR HEMOGLOBIN 30.2 pg (25-34); MEAN CORPUSCULAR HGB CONC 33.2 g/dl (32-36); MEAN PLATELET VOLUME 11.2 fL (7.4-10.4); MONO % 5.7 %; NEUT % 60.7 %; PLATELET COUNT 124 K/uL (130-400); RED BLOOD COUNT 3.77 M/uL (4.2-5.4)
[2017-03-20 13:07] LABS: INR 1.8 (0.9-1.1); PROTHROMBIN TIME (PATIENT) 20.3 SECONDS (9.0-12.0)
[2017-03-20 13:17] LABS: ALT/SGPT 17 U/L (12-78); AST/SGOT 12 U/L (15-37); BLOOD UREA NITROGEN 58 mg/dl (7-18); BUN/CREATININE RATIO 21.3 (10-20); CALCIUM 9.7 mg/dl (8.5-10.1); CARBON DIOXIDE 31 mmol/L (21-32); CHLORIDE 97 mmol/L (98-107); GLUCOSE 217 mg/dl (70-99); POTASSIUM 3.1 mmol/L (3.5-5.1); SODIUM 137 mmol/L (136-145)
[2017-03-20 13:22] LABS: ALB/GLOB RATIO 1.1 (0.9-2); ALKALINE PHOSPHATASE 99 U/L (45-117); CKMB/CK RATIO 1.2 (0-3.0)
[2017-03-20 14:56] LABS: INFLUENZA A PCR Neg for Influ A (NEG); INFLUENZA B PCR Neg for Influ B (NEG)
[2017-03-20] MEDS ORDERED: LEVAQUIN 750MG / 150ML D5W ONE (15:14)
[2017-03-20] MEDS ORDERED: VANCOMYCIN 1GM/270ML NSS ONE (15:15)
[2017-03-20] MEDS ORDERED: LEVALBUTEROL 1.25MG/0.5ML NEB INH PRN (15:15)
[2017-03-20] MEDS ORDERED: LEVALBUTEROL/IPRATROPIUM NEB INH PRN (15:15)
[2017-03-20] MEDS ORDERED: ACETAMINOPHEN 325 MG TAB PO PRN (15:15)
[2017-03-20] MEDS ORDERED: ONDANSETRON INJ 2 MG/ML 2 ML VIAL IV PRN (15:15)
[2017-03-20] MEDS ORDERED: SODIUM CHLORIDE 0.9% 1000ML 1,000 ML IV SCH (15:15)
[2017-03-20] MEDS ORDERED: IPRATROPIUM BROMIDE NEB SOLN 0.02% 2.5 ML VIAL INH PRN (15:15)
[2017-03-20] MEDS ORDERED: DEXTROSE 50% 50 ML SYR IV PRN (15:30)
[2017-03-20] MEDS ORDERED: GLUCOSE 40% GEL 15 GM TUBE PO PRN (15:30)
[2017-03-20] MEDS ORDERED: GLUCOSE 10 TABS/TUBE PO PRN (15:30)
[2017-03-20] MEDS ORDERED: GLUCAGON FOR INJ 1 MG VIAL SQ PRN (15:30)
[2017-03-20] MEDS ORDERED: NITROGLYCERIN 0.4 MG SL PER TAB CHARGE UT PRN (15:45)
[2017-03-20] MEDS ORDERED: BENZONATATE 100MG CAP PO PRN (15:45)
[2017-03-20 15:55] VITALS: Ht 165.1 cm; Wt 106.5 kg
[2017-03-20] MEDS ORDERED: CLONIDINE HCL 0.1 MG TAB PO PRN (16:00)
[2017-03-20] MEDS ORDERED: PIPERACILL/TAZOBAC CONSULT ACTIVE PRN (16:00)
[2017-03-20] MEDS ORDERED: LEVOFLOXACIN CONSULT ACTIVE PRN (16:00)
[2017-03-20 16:14] VITALS: BP 176/66; PULSE 83; TEMP 36.6; O2SAT 100
[2017-03-20] MEDS ORDERED: IV FLUIDS COMPLETED PRN (16:15)
[2017-03-20] MEDS ORDERED: NSS + 20MEQ KCL 1000ML 1,000 ML IV SCH (16:30)
--- NOTE | 2017-03-20 16:34 | History and Physical ---
History & Physical Date & Time of Service: Mar 20, 2017 at 15:29 Chief Complaint: Breathing Difficulty Primary Care Physician: Kerry Waterman D.O. History of Present Illness Source: patient, hospital records This is a 77 year old female with PMH of CAD, COPD, CKD stage III, DM type 2, HTN, PAF on Coumadin, chronic diastolic CHF, nocturnal hypoxemia, and other problems listed below who presented to the ED for SOB. Patient was recently hospitalized for chest pain (ACS ruled out), L basilar HCAP, and KARLEE and was discharged 2 days. The HCAP was treated with Vanc/Zosyn and she was d/c on doxycycline. Blood and sputum cx were neg. Patient states she did not get better after recent hospitalization. She reports persistent SOB described as constant and mild cough (not able to bring up sputum). Today when home health nurse was visiting she was SOB while in bed and felt she couldn't move. 911 was called and she was brought to ER by ambulance. Patient uses oxygen 3 liters HS at home. Patient is currently saturating 100% on 2 liters NC however she was saturating 99-100% on RA in the ER. She was treated with an hour long neb and reports feeling shaky afterwards. She admits to mild substernal CP and pleuritic right sided CP. Pain is similar to recent admission when she was ruled out for ACS, however it is less severe now. Patient reports eating/ drinking normally at home. Not taking Lasix at home. She denies fever, chills, nasal congestion, swallowing difficulty, vomiting, diarrhea, dysuria, urinary change, increased LE edema, abnormal bleeding. Past Medical/Surgical History Medical Problems: (1) Asthma Status: Chronic (2) Atrial fibrillation Status: Chronic (3) C. difficile colitis Status: Resolved (4) Chronic anticoagulation Status: Chronic (5) Chronic kidney disease Status: Chronic (6) COPD (chronic obstructive pulmonary disease) Status: Chronic (7) CVA (cerebral vascular accident) Status: Chronic (8) Diabetes mellitus, type II Status: Chronic (9) Diabetic neuropathy Status: Chronic (10) Diabetic peripheral neuropathy associated with type 2 diabetes mellitus Status: Chronic (11) Gastroparesis Status: Chronic (12) GERD (gastroesophageal reflux disease) Status: Chronic (13) History of coronary artery disease Status: Chronic (14) History of GI bleed Status: Chronic (15) Hyperlipidemia Status: Chronic (16) Hypertension Status: Chronic (17) Migraine Status: Chronic (18) Pulmonary embolism Status: Chronic (19) Sleep apnea Status: Chronic Surgical Problems: (1) H/O heart artery stent Permanent Comment: [facility] LAD [facility] [place] (AVE Stent). Repeat catheterization August 2014 demonstrated stable moderate LAD stenosis. Status: Resolved (2) History of appendectomy Status: Resolved (3) History of total left hip arthroplasty Status: Resolved (4) Hx of removal of ovary Permanent Comment: R side Status: Resolved Family History FH: cancer MOTHER (cervical) BROTHER (skin, testicular) Social History Smoking Status: Former Smoker (smoked 0.8 ppd x 38 years) Alcohol Use: none Marital Status: Housing status: lives alone, other (has home health) Occupational Status: retired Immunizations History of Influenza Vaccine: Yes Influenza Vaccine Date: May 31, 2016 History of Tetanus Vaccine?: Yes Tetanus Immunization Date: Feb 20, 2012 History of Pneumococcal: Yes Pneumococcal Date: Nov 04, 2000 History of Hepatitis B Vaccine: No Multi-Drug Resistant Organisms History of MDRO: No Allergies Coded Allergies: Codeine (Verified Allergy, Unknown, UNKNOWN, 03/20/17) INFO FROM PT Aspirin (Verified Adverse Reaction, Intermediate, (ULCER), 03/20/17) Venlafaxine (Verified Adverse Reaction, Intermediate, DROWINESS/ CONFUSION , 03/20/17) Cephalexin (Verified Adverse Reaction, Mild, DROWSINESS, UNABLE TO DRIVE, UPSET STOMACH, 03/20/17) Oxycodone (Verified Adverse Reaction, Mild, n/v, 03/20/17) gmg Home Medications Scheduled Calcitriol (Rocaltrol), 0.5 MCG PO DAILY Diltiazem Hcl Coated Beads (Diltiazem Hcl Er), 120 MG PO DAILY Doxycycline Hyclate (Doxycycline Hyclate), 100 MG PO BID Ferrous Sulfate (Ferrous Sulfate), 325 MG PO DAILY Furosemide (Lasix), 1 TAB PO BID Home O2 Therapy (Oxygen), LITERS NA QPM Insulin Aspart (Novolog), ACHS Insulin Glargine (Lantus), 25 UNITS SQ QAM Insulin Glargine (Lantus), 11 UNITS SQ EVENING MEAL Isosorbide Mononitrate (Isosorbide Mononitrate ER), 60 MG PO DAILY Losartan Potassium (Cozaar), 100 MG PO DAILY Lovastatin (Mevacor), 80 MG PO HS Metolazone (Zaroxolyn), 2.5 MG PO WK Metoprolol Succinate (Metoprolol Succinate ER), 12.5 MG PO DAILY Omeprazole (Omeprazole), 20 MG PO DAILY Solifenacin (Vesicare), 5 MG PO DAILY Umeclidinium-Vilanterol (Anoro Ellipta 62.5-25 Mcg/INH), 1 PUFF INH DAILY Warfarin Sod (Jantoven), 4 MG PO 5XWK Warfarin Sodium (Coumadin), 2 MG PO 3XWK Scheduled PRN Benzonatate (Benzonatate), 100 MG PO TID PRN for Cough Glucose-Vitamin C (Glucose), 1 TAB PO UD PRN for LOW SUGAR Levalbuterol Hcl (Levalbuterol Hcl), 3 ML INH Q4 PRN for SOB/Wheezing Nitroglycerin (Nitrostat), 0.4 MG UT PRN PRN for Chest Pain Review of Systems 10 systems reviewed and negative except as noted in HPI. Physical Exam Vital Signs Date Time Temp Pulse Resp B/P (MAP) Pulse Ox O2 Delivery O2 Flow Rate FiO2 03/20/17 14:30 85 16 100 Nasal Cannula 2.0 03/20/17 13:58 89 03/20/17 13:30 88 22 160/60 100 Room Air 03/20/17 12:30 68 22 156/65 100 Nebulizer 8.0 03/20/17 12:14 99 Room Air 03/20/17 11:41 61 03/20/17 11:29 99 Room Air 03/20/17 11:29 36.5 69 24 163/63 99 Room Air 03/20/17 11:29 100 Room Air General Appearance: + obese, + pertinent finding (alert elderly female, initially appeared anxious and was hyperventilating, but was breathing calmly by end of interview) Head: normocephalic, atraumatic Eyes: normal inspection, sclerae normal ENT: hearing grossly normal, pharynx normal Neck: supple, trachea midline Respiratory/Chest: lungs clear, normal breath sounds, + pertinent finding (was initially hyperventilating, but was breathing calmly by end of interview. saturating 100% on 2 liters NC. + chest wall reproducible tenderness in substernal area.) Cardiovascular: regular rate, rhythm, no murmur Abdomen/GI: normal bowel sounds, non tender, soft Extremities/Musculoskelatal: no calf tenderness, + pertinent finding (trace pretibial edema bilaterally) Neurologic/Psych: alert, normal reflexes, + pertinent finding (anxious) Skin: warm/dry, + pertinent finding (erythema on bilateral lower legs- chronic per patient) Diagnostics Laboratory Results Results Past 24 Hours Test 03/20/17 12:20 03/20/17 12:40 03/20/17 12:45 03/20/17 12:46 Range/Units Influenza Type A (RT-PCR) Neg for Influ A NEG Influenza Type A Antigen Neg for Influ A NEG Influenza Type B Antigen Neg for Influ B NEG Influenza Type B (RT-PCR) Neg for Influ B NEG White Blood Count 5.40 4.8-10.8 K/uL Red Blood Count 3.77 4.2-5.4 M/uL Hemoglobin 11.4 12.0-16.0 g/dL Hematocrit 34.3 37-47 % Mean Corpuscular Volume 91.0 80-100 fL Mean Corpuscular Hemoglobin 30.2 25-34 pg Mean Corpuscular Hemoglobin Concent 33.2 32-36 g/dl Platelet Count 124 130-400 K/uL Mean Platelet Volume 11.2 7.4-10.4 fL Neutrophils (%) (Auto) 60.7 % Lymphocytes (%) (Auto) 32.6 % Monocytes (%) (Auto) 5.7 % Eosinophils (%) (Auto) 0.6 % Basophils (%) (Auto) 0.2 % Neutrophils # (Auto) 3.28 1.4-6.5 K/uL Lymphocytes # (Auto) 1.76 1.2-3.4 K/uL Monocytes # (Auto) 0.31 0.11-0.59 K/uL Eosinophils # (Auto) 0.03 0-0.5 K/uL Basophils # (Auto) 0.01 0-0.2 K/uL RDW Standard Deviation 46.6 36.4-46.3 fL RDW Coefficient of Variation 14.0 11.5-14.5 % Immature Granulocyte % (Auto) 0.2 % Immature Granulocyte # (Auto) 0.01 0.00-0.02 K/uL Prothrombin Time 20.3 9.0-12.0 SECONDS Prothromb Time International Ratio 1.8 0.9-1.1 Sodium Level 137 136-145 mmol/L Potassium Level 3.1 3.5-5.1 mmol/L Chloride Level 97 98-107 mmol/L Carbon Dioxide Level 31 21-32 mmol/L Anion Gap 9.0 18.0 16-25 mmol/L Blood Urea Nitrogen 58 7-18 mg/dl Creatinine 2.70 0.60-1.20 mg/dl Est Creatinine Clear Calc Drug Dose 20.5 ml/min Estimated GFR () 18.7 Estimated GFR (Non- 16.1 BUN/Creatinine Ratio 21.3 10-20 Random Glucose 217 70-99 mg/dl Calcium Level 9.7 8.5-10.1 mg/dl Total Bilirubin 0.7 0.2-1 mg/dl Aspartate Amino Transf (AST/SGOT) 12 15-37 U/L Alanine Aminotransferase (ALT/SGPT) 17 12-78 U/L Alkaline Phosphatase 99 45-117 U/L Total Creatine Kinase 51 26-192 U/L Creatine Kinase MB 0.6 0.5-3.6 ng/ml Creatine Kinase MB Ratio 1.2 0-3.0 Troponin I < 0.015 0-0.045 ng/ml Total Protein 6.6 6.4-8.2 gm/dl Albumin 3.5 3.4-5.0 gm/dl Globulin 3.1 2.5-4.0 gm/dl Albumin/Globulin Ratio 1.1 0.9-2 Bedside D-Dimer 217 0-450 ng/mlFEU Bedside Hemoglobin 11.2 12.0-16.0 g/dl Bedside Hematocrit 33 37-47 % Bedside Sodium 135 135-144 mEq/L Bedside Potassium 3.0 3.3-5.0 mEq/L Bedside Chloride 94 101-112 mEq/L Bedside Total CO2 28 24-31 mEq/l Bedside Blood Urea Nitrogen 50 7-18 mg/dl Bedside Creatinine 2.6 0.6-1.3 mg/dl Bedside Glucose (other) 225 70-99 mg/dl Bedside Ionized Calcium (Kendy) 1.14 1.12-1.32 mmol/l Test 03/20/17 13:49 03/20/17 15:09 Range/Units Bedside Glucose 223 70-90 mg/dl Microbiology Results 03/20/17 Blood Culture, Received Pending 03/20/17 Blood Culture, Received Pending Diagnostic Radiology CHEST ONE VIEW PORTABLE CLINICAL HISTORY: Pt c/o SOB dyspnea COMPARISON STUDY: 03/14/2017 FINDINGS: Mild stable cardiomegaly. Small parenchymal infiltrate right base. Mild emphysematous change. IMPRESSION: Small parenchymal infiltrate right base. Mild stable cardiomegaly. EKG NSR, LVH, possible old inferior infarct, no ST or T wave abnormality Impression Assessment and Plan HCAP Recently hospitalized for L basilar HCAP treated with Vanc/Zozyn and d/c on doxycycline on 03/18; blood and sputum cx were neg Presents with persistent SOB/ cough CXR shows R base infiltrate No sign of sepsis Saturated 99-100% on RA; now on 2 liters NC Given Zosyn, Levaquin, Vancomycin in ER Check blood cx, sputum cx, MRSA nasal swab Continue Zosyn and Levaquin Supplemental O2 per protocol (uses 3L HS at home) KARLEE ON CKD STAGE III Creat is 2.7, was 1.8 on discharge (her approximate baseline) Hold ARB, Lasix, metolazone Given 500 mL bolus in ER Will give additional 1 liter at 75 cc/hour Recheck PRP in am Avoid nephrotoxins HYPOKALEMIA PO replacement given in ED Will give additional K+ with her IVF's Check mag- wnl Recheck PRP in am CHEST PAIN Troponin neg; EKG- no ST/ T wave abnormality Likely musculoskeletal pain in substernal area (+ chest wall tenderness) and pleuritic pain in R chest from pneumonia Ruled out for ACS on recent admission- serial CE's and EKG negative, seen by cardiology, echo done- no wall motion abnormality HISTORY OF CAD Continue Imdur, beta joe, statin ASTHMA/ COPD No wheezing on exam Received hour long neb in ER PRN nebs DM TYPE 2 Continue home Lantus Novolog sliding scale HYPERTENSION BP elevated at times Continue diltiazem Holding Lasix, metolazone, and losartan for KARLEE PRN clonidine added PAROXYSMAL AFIB Rate is controlled Continue diltiazem On Coumadin, INR 1.8 Continue Coumadin and montior INR CHRONIC DIASTOLIC CHF Appears mildly dry Receiving IVF's and diuretics held Monitor volume status DVT PROPHYLAXIS On Coumadin CODE STATUS DNR per my discussion with the patient DISPOSITION Lives alone, has home health Follows with Dr. Waterman for primary care Patient seen in collaboration w/ Dr. Carvalho. Please see his addendum. Agree with above H and P. Briefly 77F presents with sob. dorothea was rcently in hospital and reated for HCAp and dicahrged on po doycyline comes back with sob. After treatmnet in Er doing fine now. Somewhat restless about frequebnt admissions i the recent past. Afebrile. Has pleuritic chest pain. no nausea. No abdominal pain. p/e Ge obese. 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 Y/N: Yes Risk Level: Moderate Given or contraindicated: Warfarin (Coumadin)
[2017-03-20] MEDS: VESICARE~ORDER AWAITING ACTION SCH (17:21)
[2017-03-20] MEDS: ANORO ELLIPTA~ORDER AWAITING ACTION SCH (17:21)
[2017-03-20] MEDS: INSULIN ASPART 100 UNITS/ML 3 ML PEN SC SCH ×2 (17:53→20:59)
[2017-03-20] MEDS: WARFARIN SOD 2 MG TAB PO SCH (18:10)
[2017-03-20] MEDS: LOVASTATIN 20 MG TAB PO SCH (20:57)
[2017-03-20] MEDS: INSULIN GLARGINE SOLOSTAR 100 UNITS/ML 3 ML PEN SQ SCH (21:00)
[2017-03-20 23:53] VITALS: BP 144/67; PULSE 72; TEMP 36.4; O2SAT 99
[2017-03-21 00:16] VITALS: O2SAT 97
[2017-03-21] MEDS: PIPERACILL/TAZOBAC IV 4.5 GM in DEXTROSE 5% 100ML IV SCH ×2 (02:14→13:51)
[2017-03-21 06:20] LABS: HEMATOCRIT 33.4 % (37-47); MEAN CORPUSCULAR HEMOGLOBIN 29.5 pg (25-34); MEAN PLATELET VOLUME 11.1 fL (7.4-10.4); PLATELET COUNT 118 K/uL (130-400); RED BLOOD COUNT 3.63 M/uL (4.2-5.4); WHITE BLOOD COUNT 4.31 K/uL (4.8-10.8)
[2017-03-21 06:30] LABS: PROTHROMBIN TIME (PATIENT) 22.3 SECONDS (9.0-12.0)
[2017-03-21 06:56] LABS: BUN/CREATININE RATIO 20.6 (10-20); CALCIUM 9.4 mg/dl (8.5-10.1); CREATININE 2.7 mg/dl (0.60-1.20); POTASSIUM 3.5 mmol/L (3.5-5.1)
[2017-03-21 07:16] VITALS: BP 127/58; PULSE 66; TEMP 36.4; O2SAT 100
[2017-03-21] MEDS: DILTIAZEM HCL 120 MG CAPCR PO SCH (07:56)
[2017-03-21] MEDS: FERROUS SULFATE 325 MG TAB PO SCH (07:56)
[2017-03-21] MEDS: PANTOprazole SOD 40 MG TAB PO SCH (07:56)
[2017-03-21] MEDS: ISOSORBIDE MONONITRATE 60 MG TABCR PO SCH (07:56)
[2017-03-21] MEDS: METOPROLOL SUCC 25MG EXT REL TAB PO SCH (07:57)
[2017-03-21] MEDS: INSULIN GLARGINE SOLOSTAR 100 UNITS/ML 3 ML PEN SQ SCH ×2 (07:57→20:26)
[2017-03-21] MEDS: CALCITRIOL 0.25 MCG CAP PO SCH (07:58)
[2017-03-21] MEDS: VESICARE~ORDER AWAITING ACTION SCH ×4 (08:00→23:39)
[2017-03-21] MEDS: ANORO ELLIPTA~ORDER AWAITING ACTION SCH ×4 (08:00→23:39)
[2017-03-21] MEDS: INSULIN ASPART 100 UNITS/ML 3 ML PEN SC SCH ×4 (08:45→20:21)
--- NOTE | 2017-03-21 13:26 | Progress Note ---
Internal Med Progress Note Date of Service: Mar 21, 2017. Provider Documentation: SUBJECTIVE: Seen and examined at bedside. States cough and SOB is better Has some chest pain on palpation, denies pain at rest Offers no other complaints OBJECTIVE: Vital Signs-as noted below Physical Exam: General Appearance:Moderately built and nourished, no apparent distress Head: normocephalic, Atraumatic Eyes: normal inspection, EOMI, PERRL Neck: supple, Trachea midline Respiratory/Chest: Diminished breath sounds, CTA Cardiovascular: S1, S2, No murmur Abdomen/GI:Soft, Non tender, Bowel sounds present Extremities/Musculoskelatal:normal inspection, 1+ b/l edema, chronic venous stasis Neurologic/Psych:AAOX3, grossly no focal neurological deficits Skin: normal color, warm Lab data as noted below. ASSESSMENT & PLAN: HCAP Recently hospitalized for L basilar HCAP treated with Vanc/Zozyn and d/c on doxycycline on 03/18; blood and sputum cx were neg CXR shows R base infiltrate No sign of sepsis Continue Zosyn, Levaquin Blood cx:pending MRSA nasal swab: negative Supplemental O2 per protocol (uses 3L HS at home) KARLEE ON CKD STAGE III Cr: Baseline 1.8 >>>2.7 Hold ARB, Lasix, metolazone Continue IV fluids Monitor renal function Avoid nephrotoxins HYPOKALEMIA Replace and monitor CHEST PAIN Troponin neg; EKG- no ST/ T wave abnormality Likely musculoskeletal: tender on palpation Ruled out for ACS on recent admission- serial CE's and EKG negative, seen by cardiology, echo done- no wall motion abnormality HISTORY OF CAD Continue Imdur, beta joe, statin ASTHMA/ COPD No signs of exacerbation PRN nebs DM II Continue home Lantus ISS, Accu checks HYPERTENSION Continue diltiazem Holding Lasix, metolazone, and losartan for KARLEE PRN clonidine PAROXYSMAL AFIB Rate is controlled Continue diltiazem On Coumadin, INR 1.8>>>2.0 montior INR CHRONIC DIASTOLIC CHF Recent ECHO: EF:70% Grade I diastolic dysfunction Stable DVT PX On Coumadin CODE STATUS DNR per my discussion with the patient DISPOSITION Lives alone, has home health Follows with Dr. Waterman for primary care Vital Signs: Date Time Temp Pulse Resp B/P (MAP) Pulse Ox O2 Delivery O2 Flow Rate FiO2 03/21/17 10:08 Room Air 03/21/17 07:16 36.4 66 20 127/58 (81) 100 Nasal Cannula 2.0 03/21/17 00:16 97 Nasal Cannula 2.0 03/20/17 23:53 36.4 72 20 144/67 (92) 99 Nasal Cannula 2.0 03/20/17 16:14 36.6 83 20 176/66 (102) 100 Nasal Cannula 2.0 03/20/17 15:55 Nasal Cannula 2.0 03/20/17 15:47 84 18 189/137 97 03/20/17 14:30 85 16 100 Nasal Cannula 2.0 03/20/17 13:58 89 Lab Results: Results Past 24 Hours Test 03/20/17 16:34 03/20/17 20:28 03/21/17 05:43 03/21/17 07:34 Range/Units Bedside Glucose 302 199 175 70-90 mg/dl White Blood Count 4.31 4.8-10.8 K/uL Red Blood Count 3.63 4.2-5.4 M/uL Hemoglobin 10.7 12.0-16.0 g/dL Hematocrit 33.4 37-47 % Mean Corpuscular Volume 92.0 80-100 fL Mean Corpuscular Hemoglobin 29.5 25-34 pg Mean Corpuscular Hemoglobin Concent 32.0 32-36 g/dl RDW Standard Deviation 48.2 36.4-46.3 fL RDW Coefficient of Variation 14.3 11.5-14.5 % Platelet Count 118 130-400 K/uL Mean Platelet Volume 11.1 7.4-10.4 fL Prothrombin Time 22.3 9.0-12.0 SECONDS Prothromb Time International Ratio 2.0 0.9-1.1 Sodium Level 140 136-145 mmol/L Potassium Level 3.5 3.5-5.1 mmol/L Chloride Level 102 98-107 mmol/L Carbon Dioxide Level 27 21-32 mmol/L Anion Gap 11.0 3-11 mmol/L Blood Urea Nitrogen 56 7-18 mg/dl Creatinine 2.70 0.60-1.20 mg/dl Est Creatinine Clear Calc Drug Dose 20.5 ml/min Estimated GFR () 18.7 Estimated GFR (Non- 16.1 BUN/Creatinine Ratio 20.6 10-20 Random Glucose 150 70-99 mg/dl Calcium Level 9.4 8.5-10.1 mg/dl Magnesium Level 2.0 1.8-2.4 mg/dl Test 03/21/17 11:21 Range/Units Bedside Glucose 223 70-90 mg/dl Microbiology Results 03/20/17 Blood Culture, Received Pending 03/20/17 Blood Culture, Received Pending 03/20/17 MRSA DNA Surveillance Screen - Final, Complete Specimen Negative for MRSA by DNA Probe
[2017-03-21] MEDS ORDERED: SODIUM CHLORIDE 0.9% 1000ML 1,000 ML IV SCH (13:30)
[2017-03-21] MEDS ORDERED: SODIUM CHLORIDE 0.9% 1000ML 1,000 ML IV ONE (14:00)
[2017-03-21] MEDS ORDERED: POTASSIUM CHLORIDE 20 MEQ TABCR PO STA (14:04)
[2017-03-21 15:10] VITALS: O2SAT 100
[2017-03-21 15:11] VITALS: BP 147/81; PULSE 62; TEMP 36.7; O2SAT 100
[2017-03-21] MEDS: WARFARIN SOD 4 MG TAB PO SCH (18:14)
[2017-03-21 19:04] LABS: URINE APPEARANCE CLEAR (CLEAR); URINE BILIRUBIN NEG (NEG); URINE COLOR YELLOW; URINE EPITHELIAL CELL AUTO >30 /lpf (0-5); URINE NITRITE NEG (NEG); URINE SPECIFIC GRAVITY 1.016 (1.000-1.030); UROBILINOGEN NEG (NEG)
[2017-03-21 19:06] LABS: MANUAL MICROSCOPIC REQUIRED? NO; REVIEW REQ? NO
[2017-03-21] MEDS: LOVASTATIN 20 MG TAB PO SCH (20:23)
[2017-03-21 23:03] VITALS: BP 159/66; PULSE 60; TEMP 36.6; O2SAT 99
[2017-03-22] MEDS: PIPERACILL/TAZOBAC IV 4.5 GM in DEXTROSE 5% 100ML IV SCH ×3 (01:48→21:54)
[2017-03-22 07:17] LABS: BASO % 0.2 %; BASO ABS # 0.01 K/uL (0-0.2); COMPLETE YES; EOS % 2.7 %; HEMATOCRIT 32.2 % (37-47); IG% 0.2 %; LYMPH % 30.8 %; LYMPH ABS # 1.24 K/uL (1.2-3.4); MEAN CORPUSCULAR HEMOGLOBIN 29.9 pg (25-34); MEAN CORPUSCULAR HGB CONC 32.9 g/dl (32-36); MEAN PLATELET VOLUME 10.4 fL (7.4-10.4); MONO % 11.7 %; NEUT % 54.4 %; PLATELET COUNT 114 K/uL (130-400); RED BLOOD COUNT 3.54 M/uL (4.2-5.4); WHITE BLOOD COUNT 4.02 K/uL (4.8-10.8)
[2017-03-22 07:45] LABS: BUN/CREATININE RATIO 21.6 (10-20); CALCIUM 9.7 mg/dl (8.5-10.1); CREATININE 2.2 mg/dl (0.60-1.20); POTASSIUM 3.6 mmol/L (3.5-5.1)
[2017-03-22] MEDS: VESICARE~ORDER AWAITING ACTION SCH ×2 (08:00→15:46)
[2017-03-22] MEDS: ANORO ELLIPTA~ORDER AWAITING ACTION SCH ×2 (08:00→15:46)
[2017-03-22] MEDS: DILTIAZEM HCL 120 MG CAPCR PO SCH (08:06)
[2017-03-22] MEDS: PANTOprazole SOD 40 MG TAB PO SCH (08:06)
[2017-03-22] MEDS: FERROUS SULFATE 325 MG TAB PO SCH (08:06)
[2017-03-22] MEDS: ISOSORBIDE MONONITRATE 60 MG TABCR PO SCH (08:06)
[2017-03-22] MEDS: METOPROLOL SUCC 25MG EXT REL TAB PO SCH (08:06)
[2017-03-22] MEDS: CALCITRIOL 0.25 MCG CAP PO SCH (08:07)
[2017-03-22] MEDS: INSULIN ASPART 100 UNITS/ML 3 ML PEN SC SCH ×4 (09:18→20:26)
[2017-03-22] MEDS: INSULIN GLARGINE SOLOSTAR 100 UNITS/ML 3 ML PEN SQ SCH ×2 (09:19→20:29)
[2017-03-22 09:21] VITALS: BP 115/65; PULSE 55; TEMP 36.4; O2SAT 97
--- NOTE | 2017-03-22 11:38 | Progress Note ---
Internal Med Progress Note Date of Service: Mar 22, 2017. Provider Documentation: SUBJECTIVE: States feeling better today Has intermittent cough and SOB on exertion Offers no other complaints OBJECTIVE: Vital Signs-as noted below Physical Exam: General Appearance:Moderately built and nourished, no apparent distress Head: normocephalic, Atraumatic Eyes: normal inspection, EOMI, PERRL Neck: supple, Trachea midline Respiratory/Chest: Diminished breath sounds, CTA Cardiovascular: S1, S2, No murmur Abdomen/GI:Soft, Non tender, Bowel sounds present Extremities/Musculoskelatal:normal inspection, 1+ b/l edema, chronic venous stasis Neurologic/Psych:AAOX3, grossly no focal neurological deficits Skin: normal color, warm Lab data as noted below. ASSESSMENT & PLAN: HCAP Recently hospitalized for L basilar HCAP treated with Vanc/Zozyn and d/c on doxycycline on 03/18; blood and sputum cx were neg CXR shows R base infiltrate No sign of sepsis Continue Zosyn, Levaquin Blood cx:No growth to date MRSA nasal swab: negative Supplemental O2 per protocol (uses 3L HS at home) KARLEE ON CKD STAGE III Cr: Baseline 1.8 >>>2.7>>>>2.2 Hold ARB, Lasix, metolazone Continue IV fluids Monitor renal function Avoid nephrotoxins HYPOKALEMIA monitor CHEST PAIN Troponin neg; EKG- no ST/ T wave abnormality Likely musculoskeletal: tender on palpation Ruled out for ACS on recent admission- serial CE's and EKG negative, seen by cardiology, echo done- no wall motion abnormality HISTORY OF CAD Continue Imdur, beta joe, statin ASTHMA/ COPD No signs of exacerbation PRN nebs DM II Continue home Lantus ISS, Accu checks HYPERTENSION Continue diltiazem Holding Lasix, metolazone, and losartan for KARLEE PRN clonidine PAROXYSMAL AFIB Rate is controlled Continue diltiazem On Coumadin, INR 1.8>>>2.0 montior INR CHRONIC DIASTOLIC CHF Recent ECHO: EF:70% Grade I diastolic dysfunction Stable DVT PX On Coumadin CODE STATUS DNR per my discussion with the patient DISPOSITION Lives alone, has home health Follows with Dr. Waterman for primary care Vital Signs: Date Time Temp Pulse Resp B/P (MAP) Pulse Ox O2 Delivery O2 Flow Rate FiO2 03/22/17 09:21 36.4 55 18 115/65 (82) 97 Nasal Cannula 2.0 03/22/17 08:00 Nasal Cannula 2.0 03/22/17 00:07 Nasal Cannula 2.0 03/21/17 23:03 36.6 60 20 159/66 (97) 99 Nasal Cannula 2.0 03/21/17 15:11 36.7 62 18 147/81 (103) 100 Room Air 03/21/17 15:10 100 Nasal Cannula 2.0 Lab Results: Results Past 24 Hours Test 03/21/17 16:41 03/21/17 18:52 03/21/17 19:52 03/22/17 06:25 Range/Units Bedside Glucose 97 157 70-90 mg/dl Urine Color YELLOW Urine Appearance CLEAR CLEAR Urine pH 5.0 4.5-7.5 Urine Specific [place] 1.016 1.000-1.030 Urine Protein NEG NEG Urine Glucose (UA) NEG NEG Urine Ketones NEG NEG Urine Occult Blood NEG NEG Urine Nitrite NEG NEG Urine Bilirubin NEG NEG Urine Urobilinogen NEG NEG Urine Leukocyte Esterase SMALL NEG Urine WBC (Auto) 1-5 0-5 /hpf Urine RBC (Auto) 0-4 0-4 /hpf Urine Hyaline Casts (Auto) 1-5 0-5 /lpf Urine Epithelial Cells (Auto) >30 0-5 /lpf Urine Bacteria (Auto) NEG NEG White Blood Count 4.02 4.8-10.8 K/uL Red Blood Count 3.54 4.2-5.4 M/uL Hemoglobin 10.6 12.0-16.0 g/dL Hematocrit 32.2 37-47 % Mean Corpuscular Volume 91.0 80-100 fL Mean Corpuscular Hemoglobin 29.9 25-34 pg Mean Corpuscular Hemoglobin Concent 32.9 32-36 g/dl Platelet Count 114 130-400 K/uL Mean Platelet Volume 10.4 7.4-10.4 fL Neutrophils (%) (Auto) 54.4 % Lymphocytes (%) (Auto) 30.8 % Monocytes (%) (Auto) 11.7 % Eosinophils (%) (Auto) 2.7 % Basophils (%) (Auto) 0.2 % Neutrophils # (Auto) 2.18 1.4-6.5 K/uL Lymphocytes # (Auto) 1.24 1.2-3.4 K/uL Monocytes # (Auto) 0.47 0.11-0.59 K/uL Eosinophils # (Auto) 0.11 0-0.5 K/uL Basophils # (Auto) 0.01 0-0.2 K/uL RDW Standard Deviation 47.2 36.4-46.3 fL RDW Coefficient of Variation 14.0 11.5-14.5 % Immature Granulocyte % (Auto) 0.2 % Immature Granulocyte # (Auto) 0.01 0.00-0.02 K/uL Prothrombin Time 22.0 9.0-12.0 SECONDS Prothromb Time International Ratio 2.0 0.9-1.1 Sodium Level 143 136-145 mmol/L Potassium Level 3.6 3.5-5.1 mmol/L Chloride Level 107 98-107 mmol/L Carbon Dioxide Level 28 21-32 mmol/L Anion Gap 8.0 3-11 mmol/L Blood Urea Nitrogen 48 7-18 mg/dl Creatinine 2.20 0.60-1.20 mg/dl Est Creatinine Clear Calc Drug Dose 25.1 ml/min Estimated GFR () 23.9 Estimated GFR (Non- 20.6 BUN/Creatinine Ratio 21.6 10-20 Random Glucose 136 70-99 mg/dl Calcium Level 9.7 8.5-10.1 mg/dl Test 03/22/17 08:23 03/22/17 11:31 Range/Units Bedside Glucose 130 216 70-90 mg/dl
[2017-03-22] MEDS ORDERED: SODIUM CHLORIDE 0.9% 1000ML 1,000 ML IV ONE (11:45)
[2017-03-22] MEDS: WARFARIN SOD 4 MG TAB PO SCH (15:50)
[2017-03-22] MEDS ORDERED: NURSING VERBAL MED ORDER ONE (16:00)
[2017-03-22] MEDS ORDERED: LEVOFLOXACIN 750MG / D5W IV SCH (16:00)
[2017-03-22 16:13] VITALS: BP 134/68; PULSE 55; TEMP 36.3; O2SAT 100
[2017-03-22] MEDS: LOVASTATIN 20 MG TAB PO SCH (20:27)
[2017-03-22 23:08] VITALS: BP 136/50; PULSE 57; TEMP 36.4; O2SAT 100
[2017-03-23] MEDS: PIPERACILL/TAZOBAC IV 4.5 GM in DEXTROSE 5% 100ML IV SCH ×2 (05:44→13:43)
[2017-03-23 07:14] LABS: INR 2.3 (0.9-1.1); PROTHROMBIN TIME (PATIENT) 25.5 SECONDS (9.0-12.0)
[2017-03-23 07:36] LABS: BUN/CREATININE RATIO 20.9 (10-20); CALCIUM 8.8 mg/dl (8.5-10.1); CREATININE 1.8 mg/dl (0.60-1.20); POTASSIUM 3.5 mmol/L (3.5-5.1)
[2017-03-23 07:38] VITALS: BP 145/72; PULSE 58; TEMP 36.4; O2SAT 100
[2017-03-23] MEDS: VESICARE~ORDER AWAITING ACTION SCH ×3 (08:00→15:28)
[2017-03-23] MEDS: METOPROLOL SUCC 25MG EXT REL TAB PO SCH (08:00)
[2017-03-23] MEDS: ANORO ELLIPTA~ORDER AWAITING ACTION SCH ×3 (08:00→15:28)
[2017-03-23] MEDS: DILTIAZEM HCL 120 MG CAPCR PO SCH (08:00)
[2017-03-23] MEDS: PANTOprazole SOD 40 MG TAB PO SCH (08:05)
[2017-03-23] MEDS: ISOSORBIDE MONONITRATE 60 MG TABCR PO SCH (08:05)
[2017-03-23] MEDS: FERROUS SULFATE 325 MG TAB PO SCH (08:05)
[2017-03-23] MEDS: CALCITRIOL 0.25 MCG CAP PO SCH (08:05)
[2017-03-23] MEDS: INSULIN ASPART 100 UNITS/ML 3 ML PEN SC SCH ×4 (08:09→20:49)
[2017-03-23] MEDS: INSULIN GLARGINE SOLOSTAR 100 UNITS/ML 3 ML PEN SQ SCH ×2 (08:10→20:49)
--- NOTE | 2017-03-23 11:17 | Progress Note ---
Internal Med Progress Note Date of Service: Mar 23, 2017. Provider Documentation: SUBJECTIVE: States feeling tired and has SOB on exertion Chest pain and cough are much Improved Offers no other complaints OBJECTIVE: Vital Signs-as noted below Physical Exam: General Appearance:Moderately built and nourished, no apparent distress Head: normocephalic, Atraumatic Eyes: normal inspection, EOMI, PERRL Neck: supple, Trachea midline Respiratory/Chest: Diminished breath sounds, CTA Cardiovascular: S1, S2, No murmur Abdomen/GI:Soft, Non tender, Bowel sounds present Extremities/Musculoskelatal:normal inspection, 1+ b/l edema, chronic venous stasis Neurologic/Psych:AAOX3, grossly no focal neurological deficits Skin: normal color, warm Lab data as noted below. ASSESSMENT & PLAN: HCAP Recently hospitalized for L basilar HCAP treated with Vanc/Zozyn and d/c on doxycycline on 03/18; blood and sputum cx were neg CXR shows R base infiltrate No sign of sepsis Continue Zosyn, Levaquin>>> Taper to Levaquin today Blood cx:No growth to date MRSA nasal swab: negative Supplemental O2 per protocol (uses 3L HS at home) Plan to repeat CXR in AM if clinically no improvement KARLEE ON CKD STAGE III Cr: Baseline 1.8 >>>2.7>>>>2.2>>>1.8 Held ARB, Lasix, metolazone secondary to KARLEE S/P IV fluids Monitor renal function Avoid nephrotoxins Plan to resume Lasix today HYPOKALEMIA monitor CHEST PAIN Troponin neg; EKG- no ST/ T wave abnormality Likely musculoskeletal: tender on palpation Ruled out for ACS on recent admission- serial CE's and EKG negative, seen by cardiology, echo done- no wall motion abnormality HISTORY OF CAD Continue Imdur, beta joe, statin ASTHMA/ COPD No signs of exacerbation PRN nebs DM II Continue home Lantus ISS, Accu checks HYPERTENSION Continue diltiazem Held Lasix, metolazone, and losartan for KARLEE PRN clonidine PAROXYSMAL AFIB Rate is controlled Continue diltiazem On Coumadin, INR 1.8>>>2.0>>>2.3 montior INR CHRONIC DIASTOLIC CHF Recent ECHO: EF:70% Grade I diastolic dysfunction Stable DVT PX On Coumadin CODE STATUS DNR per my discussion with the patient DISPOSITION Lives alone, has home health Follows with Dr. Waterman for primary care Vital Signs: Date Time Temp Pulse Resp B/P (MAP) Pulse Ox O2 Delivery O2 Flow Rate FiO2 03/23/17 10:23 Nasal Cannula 2.0 03/23/17 07:38 36.4 58 18 145/72 (96) 100 Nasal Cannula 2.0 03/23/17 00:00 Nasal Cannula 2.0 03/22/17 23:08 36.4 57 20 136/50 (78) 100 Nasal Cannula 2.0 03/22/17 16:13 36.3 55 19 134/68 (90) 100 Nasal Cannula 2.0 03/22/17 16:00 Nasal Cannula 2.0 Lab Results: Results Past 24 Hours Test 03/22/17 16:28 03/22/17 19:56 03/23/17 06:38 03/23/17 07:54 Range/Units Bedside Glucose 82 114 79 70-90 mg/dl Prothrombin Time 25.5 9.0-12.0 SECONDS Prothromb Time International Ratio 2.3 0.9-1.1 Sodium Level 146 136-145 mmol/L Potassium Level 3.5 3.5-5.1 mmol/L Chloride Level 111 98-107 mmol/L Carbon Dioxide Level 29 21-32 mmol/L Anion Gap 6.0 3-11 mmol/L Blood Urea Nitrogen 38 7-18 mg/dl Creatinine 1.80 0.60-1.20 mg/dl Est Creatinine Clear Calc Drug Dose 30.7 ml/min Estimated GFR () 30.5 Estimated GFR (Non- 26.3 BUN/Creatinine Ratio 20.9 10-20 Random Glucose 82 70-99 mg/dl Calcium Level 8.8 8.5-10.1 mg/dl Test 03/23/17 11:35 Range/Units Bedside Glucose 164 70-90 mg/dl
[2017-03-23] MEDS: WARFARIN SOD 2 MG TAB PO SCH (15:30)
[2017-03-23 15:46] VITALS: BP 153/72; PULSE 56; TEMP 36.4; O2SAT 100
[2017-03-23 16:00] VITALS: O2SAT 100
[2017-03-23] MEDS: FUROSEMIDE 40 MG TAB PO SCH (17:13)
[2017-03-23] MEDS: LOVASTATIN 20 MG TAB PO SCH (20:47)
[2017-03-23 23:46] VITALS: BP 171/74; PULSE 59; TEMP 36.3; O2SAT 100
[2017-03-24 07:32] VITALS: BP 153/54; PULSE 57; TEMP 36.2; O2SAT 100
[2017-03-24] MEDS: ANORO ELLIPTA~ORDER AWAITING ACTION SCH ×4 (07:34→22:27)
[2017-03-24] MEDS: VESICARE~ORDER AWAITING ACTION SCH ×4 (07:35→22:28)
[2017-03-24] MEDS: DILTIAZEM HCL 120 MG CAPCR PO SCH (07:37)
[2017-03-24] MEDS: METOPROLOL SUCC 25MG EXT REL TAB PO SCH (07:37)
[2017-03-24] MEDS: ISOSORBIDE MONONITRATE 60 MG TABCR PO SCH (07:38)
[2017-03-24] MEDS: FERROUS SULFATE 325 MG TAB PO SCH (07:38)
[2017-03-24] MEDS: PANTOprazole SOD 40 MG TAB PO SCH (07:39)
[2017-03-24] MEDS: CALCITRIOL 0.25 MCG CAP PO SCH (07:39)
[2017-03-24 07:40] LABS: INR 2.3 (0.9-1.1); PROTHROMBIN TIME (PATIENT) 25.8 SECONDS (9.0-12.0)
[2017-03-24] MEDS: FUROSEMIDE 40 MG TAB PO SCH ×2 (07:40→16:33)
[2017-03-24 08:00] VITALS: O2SAT 100
[2017-03-24 08:03] LABS: CALCIUM 9.6 mg/dl (8.5-10.1); CREATININE 1.7 mg/dl (0.60-1.20); POTASSIUM 3.5 mmol/L (3.5-5.1)
[2017-03-24] MEDS: INSULIN ASPART 100 UNITS/ML 3 ML PEN SC SCH ×4 (08:51→20:43)
[2017-03-24] MEDS: INSULIN GLARGINE SOLOSTAR 100 UNITS/ML 3 ML PEN SQ SCH ×2 (08:52→20:43)
[2017-03-24] MEDS: LEVOFLOXACIN 750 MG TAB PO SCH (11:12)
--- NOTE | 2017-03-24 14:40 | Psychiatric Consultation ---
Consultation Date of Consultation Mar 24, 2017. Identifying Data Magui Harp is a 77-year-old woman with multiple medical conditions including A. fib on chronic anticoagulation, asthma, C. 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 We're consulted to evaluate depression. Information is gathered from the patient, the electronic medical record, and considered to be reliable. Chief Complaint "I'm not so much depressed as I am worried". History of Present Illness Magui Harp is a 77-year-old woman with the above-mentioned chronic medical conditions, who had been discharged from our facility 2 days prior to admission but repeat presented because of increasing shortness of breath. She was noted to have pneumonia. In terms of her mood, the patient is quite talkative, saying she does not see herself as depressed but describes her mood as "worried ". She worries about her medical conditions and the fact that she lives alone. 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 She also has an emergency call button she wears around her neck. She is , lives alone, but has much socialization with her neighbors, friends, family and even goes to [facility]. She denies that she is a chronically anxious woman but anxious here in the hospital regarding her conditions. When she gets short of breath or has a coughing spell she gets "scared". She reports her appetite is good. She denies clear hallucinations during wakeful hours, but has had several episodes at night here in the hospital where she wakes and is disoriented. She denies feeling suicidal homicidal. Past Psychiatric History Current OP Treatment: no current treatment Prior OP Treatment: no prior treatment Prior Psych Hospitalizations: none Suicide Attempts: No Past Medication Trials None Past Medical/Surgical History History of Concussion/Seizure: No (1) C. difficile colitis (2) Chronic kidney disease (3) Gastroparesis (4) Hyperlipidemia (5) Diabetes mellitus, type II (6) GERD (gastroesophageal reflux disease) (7) Hypertension (8) CVA (cerebral vascular accident) (9) Migraine (10) COPD (chronic obstructive pulmonary disease) (11) Sleep apnea (12) Atrial fibrillation (13) Chronic anticoagulation (14) Diabetic peripheral neuropathy associated with type 2 diabetes mellitus Allergies Allergies: Coded Allergies: Codeine (Verified Allergy, Unknown, UNKNOWN, 03/20/17) INFO FROM PT Aspirin (Verified Adverse Reaction, Intermediate, (ULCER), 03/20/17) Venlafaxine (Verified Adverse Reaction, Intermediate, DROWINESS/ CONFUSION , 03/20/17) Cephalexin (Verified Adverse Reaction, Mild, DROWSINESS, UNABLE TO DRIVE, UPSET STOMACH, 03/20/17) Oxycodone (Verified Adverse Reaction, Mild, n/v, 03/20/17) gmg Home Medications Scheduled Calcitriol (Rocaltrol), 0.5 MCG PO DAILY Diltiazem Hcl Coated Beads (Diltiazem Hcl Er), 120 MG PO DAILY Doxycycline Hyclate (Doxycycline Hyclate), 100 MG PO BID Ferrous Sulfate (Ferrous Sulfate), 325 MG PO DAILY Furosemide (Lasix), 1 TAB PO BID Home O2 Therapy (Oxygen), LITERS NA QPM Insulin Aspart (Novolog), ACHS Insulin Glargine (Lantus), 25 UNITS SQ QAM Insulin Glargine (Lantus), 11 UNITS SQ EVENING MEAL Isosorbide Mononitrate (Isosorbide Mononitrate ER), 60 MG PO DAILY Losartan Potassium (Cozaar), 100 MG PO DAILY Lovastatin (Mevacor), 80 MG PO HS Metolazone (Zaroxolyn), 2.5 MG PO WK Metoprolol Succinate (Metoprolol Succinate ER), 12.5 MG PO DAILY Omeprazole (Omeprazole), 20 MG PO DAILY Solifenacin (Vesicare), 5 MG PO DAILY Umeclidinium-Vilanterol (Anoro Ellipta 62.5-25 Mcg/INH), 1 PUFF INH DAILY Warfarin Sod (Jantoven), 4 MG PO 5XWK Warfarin Sodium (Coumadin), 2 MG PO 3XWK Scheduled PRN Benzonatate (Benzonatate), 100 MG PO TID PRN for Cough Glucose-Vitamin C (Glucose), 1 TAB PO UD PRN for LOW SUGAR Levalbuterol Hcl (Levalbuterol Hcl), 3 ML INH Q4 PRN for SOB/Wheezing Nitroglycerin (Nitrostat), 0.4 MG UT PRN PRN for Chest Pain Family History FH: cancer MOTHER (cervical) BROTHER (skin, testicular) History of Suicide: No History of Substance Abuse: Yes (brother who is had problems with alcohol) Psychiatric History: No Alcohol Use Alcohol Use In Past 12 Months: No Smoking Use Smoking Status: Former Smoker (smoked 0.8 ppd x 38 years) Substance History Denies Personal History Lives in: [facility], in her own home Childhood: Raised by mother and father, was the third oldest of 8 children Education: started high school (dropped out in 12th grade when she became ) 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 [employer] Relationship History: Spiritual Affiliation: Muslim Legal History: none Review of Systems Constitutional: weakness Eyes: denies: no symptoms, as stated in HPI, eye pain, tearing, itching, redness, discharge, double vision, visual changes, blurred vision, photophobia, other ENT: denies: no symptoms reported, see HPI, ear pain, ear discharge, loss of hearing, tinnitus, nasal pain, nasal congestion, rhinorrhea, epistaxis, sore throat, stidor, throat swelling, mouth pain, mouth swelling, dental pain, gum swelling, other Cardiovascular: reports: chest pain Respiratory: reports: short of breath (with exertion) Gastrointestinal: denies no symptoms reported, denies see HPI, denies abdominal pain, denies constipation, denies diarrhea, denies nausea, denies vomiting, denies other Genitourinary - Female: denies: no symptoms, see HPI, rash, amenorrhea, dysmenorrhea, menorrhagia, metrorrhagia, , vaginal bleeding, vaginal itching, vaginal discharge, vulvadynia, other Musculoskeletal: denies no symptoms reported, denies see HPI, denies back pain , denies gout, denies joint pain, denies joint swelling, denies muscle pain, denies muscle stiffness, denies neck pain, denies other Integumentary: denies no symptoms reported, denies see HPI, denies change in color, denies change in hair/nails, denies dryness, denies lesions, denies lumps , denies rash, denies other Neurologic: denies: no symptoms, see HPI, headache, numbness, paresthesias, pre -existing deficit, seizure, tingling, tremors, general weakness, tics, focal weakness, vertigo, lethargy, memory loss, dizziness, other Endocrine: denies: no symptoms, as stated in HPI, cold intolerance, heat intolerance, hair changes, goiter, polydipsia, polyuria, skin changes, other Hematologic / Lymphatic: denies: no symptoms, as stated in HPI, abnormal clotting, adenopathy, anemia, easy bleeding, easy bruising, gums bleeding, petechiae, other Examination Physical Examination As per Dr. Pacheco Vital Signs Vital Signs Past 12 Hours Date Time Temp Pulse Resp B/P (MAP) Pulse Ox O2 Delivery O2 Flow Rate FiO2 03/24/17 08:00 100 Room Air 03/24/17 07:32 36.2 57 18 153/54 (87) 100 Nasal Cannula 2.0 Laboratory Results Last 24 Hours Test 03/23/17 16:16 03/23/17 20:15 03/24/17 07:13 03/24/17 07:45 Bedside Glucose 86 mg/dl 149 mg/dl 85 mg/dl Prothrombin Time 25.8 SECONDS Prothromb Time International Ratio 2.3 Sodium Level 144 mmol/L Potassium Level 3.5 mmol/L Chloride Level 107 mmol/L Carbon Dioxide Level 32 mmol/L Anion Gap 5.0 mmol/L Blood Urea Nitrogen 32 mg/dl Creatinine 1.70 mg/dl Est Creatinine Clear Calc Drug Dose 32.5 ml/min Estimated GFR () 32.7 Estimated GFR (Non- 28.2 BUN/Creatinine Ratio 19.0 Random Glucose 90 mg/dl Calcium Level 9.6 mg/dl Test 03/24/17 11:35 Bedside Glucose 168 mg/dl Mental Examination During interview pt is: alert and oriented, cooperative Appearance: appropriately dressed, appropriately groomed Eye contact is: good Motor behavior is: steady gait & station, no abnormal motor movements Speech: normal in rate, rhythm & volume Affect: blunted Mood is: anxious Thought process: goal directed Thought content: reality based without delusions Suicidal thought are: denied Homicidal thoughts are: denied Hallucinations: denies auditory, denies visual Cognition: memory grossly intact, attention grossly intact, language grossly intact Intelligence estimated to be: average Insight: fair Judgement: fair Impression / Recommendations Impression 77-year-old woman with the above mentioned medical conditions, admitted with pneumonia. We are consulted to evaluate depression. The patient does not see herself as depressed this time but admits to some concern over her medical conditions and living alone. She does not have a positive vegetative profile and does not really meet criteria for major depressive episode and therefore I have no recommendations for antidepressants. She denies chronic anxiety. We did spend some time discussing depression and she recognizes that if she becomes depressed there is treatment available. She is well connected to her family friends and community and I do not see that her anxiety at this time is out of the realm of normal given her medical conditions. I asked her if there was anything we could do for her while here in the hospital and she declined but feel free to reconsult us if the need arises. Inventory Assets Strengths: Family friend in community connections Risk Factors Assessment : Yes /single/: Yes Higher / Fall in social status: No Access to guns: No Health problems: Yes Mental Health Diagnoses: No Substance use disorders: No Previous attempt: No Family history of suicide: No Previous psychiatric stay: No Hopelessness: No Smoker: No Protective Factors Assessment Sabianist beliefs: Yes : No Responsible for young children: No Employed: No Stable relationships: Yes Supportive family: Yes Recommendations (1) mood disorder related to medical conditions .03/24 -No recommendations for medications at this time - please feel free to reconsult if the need arises Has been reviewed with Dr. Roma Angeles
[2017-03-24 16:07] VITALS: BP 167/90; PULSE 73; TEMP 36.4; O2SAT 100
[2017-03-24] MEDS: WARFARIN SOD 4 MG TAB PO SCH (16:33)
--- NOTE | 2017-03-24 16:57 | Progress Note ---
Internal Med Progress Note Date of Service: Mar 24, 2017. Provider Documentation: SUBJECTIVE: The patient was seen and examined SOB on exertion with any desaturation Still has right sided chest pain OBJECTIVE: Vital Signs-as noted below Exam: General-NO distress at rest Eyes-normal ENT-normal Neck-supple Lungs-Decreased breath sound bilaterally No wheezing and or crackles Heart-Regular,no murmur Abdomen-Distended,soft,bowel sound present Extremities-Trace edema bilaterally Neuro-[] Lab data as noted below. ASSESSMENT & PLAN: HCAP with H/O Asthma/COPD Recently hospitalized for L basilar HCAP treated with Vanc/Zozyn and d/c on doxycycline on 03/18; blood and sputum cx were neg CXR shows R base infiltrate,No sign of sepsis Continued Zosyn, Levaquin Blood cx:No growth to date MRSA nasal swab: negative Supplemental O2 per protocol (uses 3L HS at home) Plan to repeat CXR in AM if clinically no improvement Clinically better Antibiotic changed to Only Levaquin now KARLEE ON CKD STAGE III Cr: Baseline 1.8 >>>2.7>>>>2.2>>>1.8 Held ARB, Lasix, metolazone secondary to KARLEE S/P IV fluids Monitor renal function Avoid nephrotoxins Renal function is improving CHEST PAIN Troponin neg; EKG- no ST/ T wave abnormality Likely musculoskeletal: tender on palpation Ruled out for ACS on recent admission- serial CE's and EKG negative, seen by cardiology, echo done- no wall motion abnormality CHRONIC DIASTOLIC CHF H/P CAD -stable Recent ECHO: EF:70% Grade I diastolic dysfunction Stable DM II Continue home Lantus ISS, Accu checks HYPERTENSION Continue diltiazem Held Lasix, metolazone, and losartan for KARLEE PRN clonidine PAROXYSMAL AFIB Rate is controlled Continue diltiazem On Coumadin, INR 1.8>>>2.0>>>2.3 monitor INR DVT PX On Coumadin CODE STATUS DNR per my discussion with the patient DISPOSITION Lives alone, has home health Follows with Dr. Waterman for primary care Vital Signs: Date Time Temp Pulse Resp B/P (MAP) Pulse Ox O2 Delivery O2 Flow Rate FiO2 03/24/17 16:07 36.4 73 18 167/90 (115) 100 Room Air 03/24/17 08:00 100 Room Air 03/24/17 07:32 36.2 57 18 153/54 (87) 100 Nasal Cannula 2.0 03/24/17 00:00 Nasal Cannula 2.0 03/23/17 23:46 36.3 59 18 171/74 (106) 100 Nasal Cannula 2.0 Lab Results: Results Past 24 Hours Test 03/23/17 20:15 03/24/17 07:13 03/24/17 07:45 03/24/17 11:35 Range/Units Bedside Glucose 149 85 168 70-90 mg/dl Prothrombin Time 25.8 9.0-12.0 SECONDS Prothromb Time International Ratio 2.3 0.9-1.1 Sodium Level 144 136-145 mmol/L Potassium Level 3.5 3.5-5.1 mmol/L Chloride Level 107 98-107 mmol/L Carbon Dioxide Level 32 21-32 mmol/L Anion Gap 5.0 3-11 mmol/L Blood Urea Nitrogen 32 7-18 mg/dl Creatinine 1.70 0.60-1.20 mg/dl Est Creatinine Clear Calc Drug Dose 32.5 ml/min Estimated GFR () 32.7 Estimated GFR (Non- 28.2 BUN/Creatinine Ratio 19.0 10-20 Random Glucose 90 70-99 mg/dl Calcium Level 9.6 8.5-10.1 mg/dl
[2017-03-24] MEDS: LOVASTATIN 20 MG TAB PO SCH (20:39)
[2017-03-24] MEDS: POLYETHYLENE (MIRALAX) 17 GM PACK PO SCH (20:40)
[2017-03-24 23:06] VITALS: BP 162/70; PULSE 68; TEMP 36.3; O2SAT 100
[2017-03-25 07:00] VITALS: BP_SYST 159; BP_SYST 162; BP_DIAS 63; BP_DIAS 75; PULSE 78; TEMP 36.5; O2SAT 98
[2017-03-25] MEDS: ANORO ELLIPTA~ORDER AWAITING ACTION SCH ×3 (08:00→23:52)
[2017-03-25] MEDS: VESICARE~ORDER AWAITING ACTION SCH ×3 (08:00→23:52)
[2017-03-25] MEDS: POLYETHYLENE (MIRALAX) 17 GM PACK PO SCH ×2 (08:00→20:00)
[2017-03-25] MEDS: INSULIN GLARGINE SOLOSTAR 100 UNITS/ML 3 ML PEN SQ SCH ×2 (08:26→20:21)
[2017-03-25] MEDS: INSULIN ASPART 100 UNITS/ML 3 ML PEN SC SCH ×4 (08:26→20:21)
[2017-03-25] MEDS: PANTOprazole SOD 40 MG TAB PO SCH (08:35)
[2017-03-25] MEDS: FERROUS SULFATE 325 MG TAB PO SCH (08:35)
[2017-03-25] MEDS: ISOSORBIDE MONONITRATE 60 MG TABCR PO SCH (08:35)
[2017-03-25] MEDS: METOPROLOL SUCC 25MG EXT REL TAB PO SCH (08:35)
[2017-03-25] MEDS: FUROSEMIDE 40 MG TAB PO SCH ×2 (08:36→17:47)
[2017-03-25] MEDS: CALCITRIOL 0.25 MCG CAP PO SCH (08:36)
[2017-03-25] MEDS: DILTIAZEM HCL 120 MG CAPCR PO SCH (08:36)
[2017-03-25 08:49] LABS: INR 2.2 (0.9-1.1); PROTHROMBIN TIME (PATIENT) 24.7 SECONDS (9.0-12.0)
[2017-03-25 08:57] LABS: MANUAL MICROSCOPIC REQUIRED? NO; REVIEW REQ? NO; URINE APPEARANCE CLEAR (CLEAR); URINE BILIRUBIN NEG (NEG); URINE COLOR YELLOW; URINE EPITHELIAL CELL AUTO 20-30 /lpf (0-5); URINE NITRITE NEG (NEG); URINE SPECIFIC GRAVITY 1.014 (1.000-1.030); UROBILINOGEN NEG (NEG)
[2017-03-25 09:13] LABS: CREATININE 1.8 mg/dl (0.60-1.20)
[2017-03-25 10:36] VITALS: BP 148/80; PULSE 79; O2SAT 88
[2017-03-25] MEDS ORDERED: LEVOFLOXACIN 250 MG TAB PO SCH (11:00)
--- NOTE | 2017-03-25 14:00 | Progress Note ---
Internal Med Progress Note Date of Service: Mar 25, 2017. Provider Documentation: SUBJECTIVE: The patient was seen and examined SOB on exertion with any desaturation Still has right sided chest pain -anteriorly OBJECTIVE: Vital Signs-as noted below Exam: General-NO distress at rest Eyes-normal ENT-normal Neck-supple Lungs-Decreased breath sound bilaterally No wheezing and or crackles Minimal tenderness over right anterior chest wall Heart-Regular,no murmur Abdomen-Distended,soft,bowel sound present Extremities-Trace edema bilaterally Neuro-AAOx3 No focal neuro deficit Lab data as noted below. ASSESSMENT & PLAN: HCAP with H/O Asthma/COPD Recently hospitalized for L basilar HCAP treated with Vanc/Zozyn and d/c on doxycycline on 03/18; blood and sputum cx were neg CXR shows R base infiltrate,No sign of sepsis Continued Zosyn, Levaquin Blood cx:No growth to date MRSA nasal swab: negative Supplemental O2 per protocol (uses 3L HS at home) Plan to repeat CXR in AM if clinically no improvement Clinically much better Antibiotic changed to Only to Levaquin now Will Get CXR Likely discharge tomorrow KARLEE ON CKD STAGE III Cr: Baseline 1.8 >>>2.7>>>>2.2>>>1.8 Held ARB, Lasix, metolazone secondary to KARLEE S/P IV fluids Monitor renal function Avoid nephrotoxins Renal function is stable CHEST PAIN Troponin neg; EKG- no ST/ T wave abnormality Likely musculoskeletal: tender on palpation Ruled out for ACS on recent admission- serial CE's and EKG negative, seen by cardiology, echo done- no wall motion abnormality CHRONIC DIASTOLIC CHF H/P CAD -stable Recent ECHO: EF:70% Grade I diastolic dysfunction No acute symptoms DM II Continue home Lantus ISS, Accu checks HYPERTENSION Continue diltiazem Held Lasix, metolazone, and losartan for KARLEE PRN clonidine PAROXYSMAL AFIB Rate is controlled Continue diltiazem On Coumadin, INR 1.8>>>2.0>>>2.3 monitor INR DVT PX On Coumadin CODE STATUS DNR per my discussion with the patient DISPOSITION Lives alone, has home health Follows with Dr. Waterman for primary care Likely discharge tomorrow Vital Signs: Date Time Temp Pulse Resp B/P (MAP) Pulse Ox O2 Delivery O2 Flow Rate FiO2 03/25/17 10:36 79 88 03/25/17 08:00 Room Air 03/25/17 07:00 36.5 78 20 162/63 (96) 98 Room Air 159/75 (103) 03/25/17 00:05 Room Air 03/24/17 23:06 36.3 68 18 162/70 (100) 100 Room Air 03/24/17 20:02 Room Air 03/24/17 16:07 36.4 73 18 167/90 (115) 100 Room Air 03/24/17 16:00 Room Air Lab Results: Results Past 24 Hours Test 03/24/17 16:45 03/24/17 20:32 03/25/17 00:00 03/25/17 07:52 Range/Units Bedside Glucose 76 183 116 70-90 mg/dl Urine Color YELLOW Urine Appearance CLEAR CLEAR Urine pH 5.0 4.5-7.5 Urine Specific [employer] 1.014 1.000-1.030 Urine Protein NEG NEG Urine Glucose (UA) NEG NEG Urine Ketones NEG NEG Urine Occult Blood NEG NEG Urine Nitrite NEG NEG Urine Bilirubin NEG NEG Urine Urobilinogen NEG NEG Urine Leukocyte Esterase TRACE NEG Urine WBC (Auto) 1-5 0-5 /hpf Urine RBC (Auto) 0-4 0-4 /hpf Urine Hyaline Casts (Auto) 1-5 0-5 /lpf Urine Epithelial Cells (Auto) 20-30 0-5 /lpf Urine Bacteria (Auto) NEG NEG Test 03/25/17 08:21 03/25/17 12:04 Range/Units Prothrombin Time 24.7 9.0-12.0 SECONDS Prothromb Time International Ratio 2.2 0.9-1.1 Creatinine 1.80 0.60-1.20 mg/dl Est Creatinine Clear Calc Drug Dose 30.7 ml/min Estimated GFR () 30.5 Estimated GFR (Non- 26.3 Bedside Glucose 127 70-90 mg/dl
--- NOTE | 2017-03-25 15:07 | DIAGNOSTIC IMAGING REPORT ---
TWO VIEW CHEST CLINICAL HISTORY: Pneumonia. FINDINGS: PA and lateral chest radiographs are compared to study dated 03/20/2017. Correlation is made with chest CT dated 09/02/2016. The PA view is degraded by patient rotation. The heart is enlarged and there is atherosclerotic calcification of the thoracic aorta. The pulmonary vasculature is noncongested. Emphysema and chronic interstitial thickening are similar to previous. A 9 mm right upper lobe pulmonary nodule is similar to prior studies. No airspace consolidation or pleural effusion is seen. There is no pneumothorax. The skeletal structures are osteopenic. Degenerative change and hyperkyphosis are noted in the thoracic spine. IMPRESSION: 1. Cardiomegaly and emphysema with no acute cardiopulmonary abnormality. 2. A 9 mm right upper lobe pulmonary nodule is similar to previous. Electronically signed by: Sumit Castillo M.D. 03/25/2017 3:06 PM Dictated Date/Time: 03/25/2017 3:04 PM
[2017-03-25 16:15] VITALS: BP 174/71; PULSE 67; TEMP 36.5; O2SAT 100
[2017-03-25] MEDS: WARFARIN SOD 2 MG TAB PO SCH (17:46)
[2017-03-25 18:27] VITALS: BP 147/67; PULSE 81
[2017-03-25] MEDS: LOVASTATIN 20 MG TAB PO SCH (20:16)
[2017-03-25 23:07] VITALS: BP 153/58; PULSE 66; TEMP 36.3; O2SAT 98
[2017-03-26 07:45] VITALS: BP 149/62; PULSE 60; TEMP 36.4; O2SAT 98
[2017-03-26] MEDS: VESICARE~ORDER AWAITING ACTION SCH (08:00)
[2017-03-26] MEDS: ANORO ELLIPTA~ORDER AWAITING ACTION SCH (08:00)
[2017-03-26] MEDS: INSULIN GLARGINE SOLOSTAR 100 UNITS/ML 3 ML PEN SQ SCH (08:29)
[2017-03-26] MEDS: INSULIN ASPART 100 UNITS/ML 3 ML PEN SC SCH ×2 (08:29→12:35)
[2017-03-26] MEDS: POLYETHYLENE (MIRALAX) 17 GM PACK PO SCH (08:30)
[2017-03-26] MEDS: FERROUS SULFATE 325 MG TAB PO SCH (08:30)
[2017-03-26] MEDS: PANTOprazole SOD 40 MG TAB PO SCH (08:31)
[2017-03-26] MEDS: DILTIAZEM HCL 120 MG CAPCR PO SCH (08:31)
[2017-03-26] MEDS: CALCITRIOL 0.25 MCG CAP PO SCH (08:31)
[2017-03-26] MEDS: FUROSEMIDE 40 MG TAB PO SCH (08:31)
[2017-03-26] MEDS: METOPROLOL SUCC 25MG EXT REL TAB PO SCH (08:31)
[2017-03-26] MEDS: ISOSORBIDE MONONITRATE 60 MG TABCR PO SCH (08:32)
[2017-03-26 09:53] LABS: HEMATOCRIT 34.1 % (37-47); MEAN CELL VOLUME 92.7 fL (80-100); MEAN CORPUSCULAR HEMOGLOBIN 30.4 pg (25-34); MEAN CORPUSCULAR HGB CONC 32.8 g/dl (32-36); RED BLOOD COUNT 3.68 M/uL (4.2-5.4); WHITE BLOOD COUNT 3.44 K/uL (4.8-10.8)
[2017-03-26 10:17] LABS: MEAN PLATELET VOLUME 10.8 fL (7.4-10.4); PLATELET COUNT 95 K/uL (130-400)
[2017-03-26 10:19] LABS: PLT ESTIMATE DECREASED
[2017-03-26 10:30] LABS: BUN/CREATININE RATIO 19.3 (10-20); CALCIUM 9.3 mg/dl (8.5-10.1); CREATININE 1.9 mg/dl (0.60-1.20); MAGNESIUM 2.2 mg/dl (1.8-2.4); POTASSIUM 3.4 mmol/L (3.5-5.1)
[2017-03-26 10:31] LABS: PHOSPHORUS 2.9 mg/dl (2.5-4.9)
--- NOTE | 2017-03-26 11:40 | Progress Note ---
Internal Med Progress Note Date of Service: Mar 26, 2017. Provider Documentation: SUBJECTIVE: The patient was seen and examined SOB on exertion with any desaturation Still has right sided chest pain -anteriorly Denies any pain today No other symptoms OBJECTIVE: Vital Signs-as noted below Exam: General-NO distress at rest Eyes-normal ENT-normal Neck-supple Lungs-Decreased breath sound bilaterally No wheezing and or crackles Minimal tenderness over right anterior chest wall Heart-Regular,no murmur Abdomen-Distended,soft,bowel sound present Extremities-Trace edema bilaterally Neuro-AAOx3 No focal neuro deficit Lab data as noted below. ASSESSMENT & PLAN: HCAP with H/O Asthma/COPD Recently hospitalized for L basilar HCAP treated with Vanc/Zozyn and d/c on doxycycline on 03/18; blood and sputum cx were neg CXR shows R base infiltrate,No sign of sepsis Continued Zosyn, Levaquin Blood cx:No growth to date MRSA nasal swab: negative Supplemental O2 per protocol (uses 3L HS at home) Plan to repeat CXR in AM if clinically no improvement Clinically much better Antibiotic changed to Only to Levaquin now Will Get CXR -no Pneumonia,9 mm pulmonary nodule -stable Will discharge this afternoon KARLEE ON CKD STAGE III Cr: Baseline 1.8 >>>2.7>>>>2.2>>>1.8 Held ARB, Lasix, metolazone secondary to KARLEE S/P IV fluids Avoid nephrotoxins Renal function is stable,Creatinine ~1.8 Potassium supplemented CHEST PAIN Troponin neg; EKG- no ST/ T wave abnormality Likely musculoskeletal: tender on palpation Ruled out for ACS on recent admission- serial CE's and EKG negative, seen by cardiology, echo done- no wall motion abnormality No more chest pain CHRONIC DIASTOLIC CHF H/P CAD -stable Recent ECHO: EF:70% Grade I diastolic dysfunction No acute symptoms DM II Continue home Lantus ISS, Accu checks HYPERTENSION Continue diltiazem Held Lasix, metolazone, and losartan for KARLEE PRN clonidine PAROXYSMAL AFIB Rate is controlled Continue diltiazem On Coumadin, INR 1.8>>>2.0>>>2.3 monitor INR DVT PX On Coumadin CODE STATUS DNR per my discussion with the patient DISPOSITION Lives alone, has home health Follows with Dr. Waterman for primary care Likely discharge today Vital Signs: Date Time Temp Pulse Resp B/P (MAP) Pulse Ox O2 Delivery O2 Flow Rate FiO2 03/26/17 08:00 Room Air 03/26/17 07:45 36.4 60 16 149/62 (91) 98 Room Air 03/26/17 00:10 Room Air 03/25/17 23:07 36.3 66 18 153/58 (89) 98 Room Air 03/25/17 20:05 Room Air 03/25/17 18:27 81 147/67 (93) 03/25/17 18:10 Room Air 03/25/17 16:15 36.5 67 18 174/71 (105) 100 Room Air Lab Results: Results Past 24 Hours Test 03/25/17 12:04 03/25/17 16:51 03/25/17 19:59 03/26/17 07:33 Range/Units Bedside Glucose 127 91 167 98 70-90 mg/dl Test 03/26/17 09:27 Range/Units White Blood Count 3.44 4.8-10.8 K/uL Red Blood Count 3.68 4.2-5.4 M/uL Hemoglobin 11.2 12.0-16.0 g/dL Hematocrit 34.1 37-47 % Mean Corpuscular Volume 92.7 80-100 fL Mean Corpuscular Hemoglobin 30.4 25-34 pg Mean Corpuscular Hemoglobin Concent 32.8 32-36 g/dl RDW Standard Deviation 47.3 36.4-46.3 fL RDW Coefficient of Variation 14.0 11.5-14.5 % Platelet Count 95 130-400 K/uL Mean Platelet Volume 10.8 7.4-10.4 fL Platelet Estimate DECREASED Sodium Level 141 136-145 mmol/L Potassium Level 3.4 3.5-5.1 mmol/L Chloride Level 105 98-107 mmol/L Carbon Dioxide Level 30 21-32 mmol/L Anion Gap 6.0 3-11 mmol/L Blood Urea Nitrogen 37 7-18 mg/dl Creatinine 1.90 0.60-1.20 mg/dl Est Creatinine Clear Calc Drug Dose 29.1 ml/min Estimated GFR () 28.6 Estimated GFR (Non- 24.6 BUN/Creatinine Ratio 19.3 10-20 Random Glucose 217 70-99 mg/dl Calcium Level 9.3 8.5-10.1 mg/dl Phosphorus Level 2.9 2.5-4.9 mg/dl Magnesium Level 2.2 1.8-2.4 mg/dl Microbiology Results 03/25/17 Urine Culture, Received Pending
[2017-03-26] MEDS ORDERED: POTASSIUM CHLORIDE 10 MEQ TABCR PO ONE (12:00)
[2017-03-26] MEDS: LEVOFLOXACIN 750 MG TAB PO SCH (12:33)
[2017-03-26] MEDS ORDERED: LVQ750 PO (12:48)
[2017-03-26] MEDS ORDERED: LCTX PO (12:48)
--- NOTE | 2017-03-26 12:51 | Discharge Instructions ---
Discharge Instructions Date of Service Mar 26, 2017. Admission Reason for Admission: Charlie,Pneumonia Discharge Discharge Diagnosis / Problem: Pneumonia,COPD/Asthma Discharge Goals Goal(s): Prevent Disease Progression Activity Recommendations Activity Limitations: resume your previous activity . Instructions / Follow-Up Instructions / Follow-Up Dr Waterman on 04/01/17 at 11:15 AM,Please keep appointment with [facility] Current Hospital Diet Patient's current hospital diet: AHA Diet (Heart Healthy), Diabetes Type 2 Diet Discharge Diet Recommended Diet: AHA Diet (Heart Healthy), Diabetes Type 2 Diet Fluid Restriction: 1500 ml (6 cups) Pending Studies Studies pending at discharge: no Laboratory Results Hemoglobin A1c Test 03/14/17 02:15 Range/Units Estimated Average Glucose 160 mg/dl Hemoglobin A1c 7.2 H 4.5-5.6 % Medical Emergencies . Who to Call and When: Medical Emergencies: If at any time you feel your situation is an emergency, please call 911 immediately. . Non-Emergent Contact Non-Emergency issues call your: Primary Care Provider . Past History Medical & Surgical History: (1) Chronic kidney disease (2) Hyperlipidemia (3) Diabetes mellitus, type II (4) GERD (gastroesophageal reflux disease) (5) Hypertension (6) CVA (cerebral vascular accident) (7) Pulmonary embolism (8) COPD (chronic obstructive pulmonary disease) (9) History of GI bleed (10) Asthma (11) Diabetic neuropathy (12) History of coronary artery disease (13) CHARLIE (acute kidney injury) (14) Pneumonia (15) History of appendectomy (16) History of total left hip arthroplasty (17) H/O heart artery stent (18) Hx of removal of ovary . "Provider Documentation" section prepared by Jan Pacheco. . VTE Core Measure Inpt VTE Proph given/why not?: Warfarin (Coumadin)
[2017-03-26 12:53] VITALS: BP 149/62; PULSE 60; TEMP 36.4; O2SAT 98
--- NOTE | 2017-03-27 07:58 | Discharge Summary ---
Discharge Summary Date of Service Mar 27, 2017. Discharge Summary Admission Date: Mar 20, 2017 at 15:46 Discharge Date: Mar 26, 2017 Discharge Disposition: Home with services Principal Diagnosis: Pneumonia,COPD/Asthma Secondary Diagnoses/Problems: Please see H&P and Hospital Progress note Medication Reconciliation New Medications: Lactobacillus Acidophilus (Lactinex) Tab 2 TAB PO BID, #30 TAB Levofloxacin (Levofloxacin) 750 Mg Tab 750 MG PO Q48H for 4 Days, #2 TAB Continued Medications: Benzonatate (Benzonatate) 100 Mg Cap 100 MG PO TID PRN for Cough for 5 Days, CAP Calcitriol (Rocaltrol) 0.5 Mcg Cap 0.5 MCG PO DAILY Diltiazem Hcl Coated Beads (Diltiazem Hcl Er) 120 Mg Cap 120 MG PO DAILY Ferrous Sulfate (Ferrous Sulfate) 325 Mg Tab 325 MG PO DAILY Furosemide (Lasix) 40 Mg Tab 1 TAB PO BID for 30 Days, #60 TAB 5 Refills Glucose-Vitamin C (Glucose) 1 Chw Chw 1 TAB PO UD PRN for LOW SUGAR Home O2 Therapy (Oxygen) Gas LITERS NA QPM Insulin Aspart (Novolog) 100 Units/Ml Inj ACHS SLIDING SCALE Insulin Glargine (Lantus) 100 Unit/Ml Inj 25 UNITS SQ QAM, VIAL Insulin Glargine (Lantus) 100 Unit/Ml Inj 11 UNITS SQ EVENING MEAL, VIAL Isosorbide Mononitrate (Isosorbide Mononitrate ER) 60 Mg Tab 60 MG PO DAILY Levalbuterol Hcl (Levalbuterol Hcl) 1.25 Mg/3 Ml Neb 3 ML INH Q4 PRN for SOB/Wheezing Losartan Potassium (Cozaar) 100 Mg Tab 100 MG PO DAILY Lovastatin (Mevacor) 40 Mg Tab 80 MG PO HS 2 TABLETS AT BEDTIME Metolazone (Zaroxolyn) 2.5 Mg Tab 2.5 MG PO WK, TAB Takes on Wednesdays Metoprolol Succinate (Metoprolol Succinate ER) 25 Mg Tabcr 12.5 MG PO DAILY, #15 Nitroglycerin (Nitrostat) 0.4 Mg Sub 0.4 MG UT PRN PRN for Chest Pain, BTL Omeprazole (Omeprazole) 20 Mg Tab 20 MG PO DAILY Solifenacin (Vesicare) 5 Mg Tab 5 MG PO DAILY, TAB Umeclidinium-Vilanterol (Anoro Ellipta 62.5-25 Mcg/INH) 1 Aer Aer 1 PUFF INH DAILY Warfarin Sod (Jantoven) 4 Mg Tab 4 MG PO 5XWK SUN, TUES, TH, SAT Warfarin Sodium (Coumadin) 2 Mg Tab 2 MG PO 3XWK MON, WED, FRI Discontinued Medications: Doxycycline Hyclate (Doxycycline Hyclate) 100 Mg Cap 100 MG PO BID for 6 Days, CAP Admission Information HPI (per Admitting provider): This is a 77 year old female with PMH of CAD, COPD, CKD stage III, DM type 2, HTN, PAF on Coumadin, chronic diastolic CHF, nocturnal hypoxemia, and other problems listed below who presented to the ED for SOB. Patient was recently hospitalized for chest pain (ACS ruled out), L basilar HCAP, and KARLEE and was discharged 2 days. The HCAP was treated with Vanc/Zosyn and she was d/c on doxycycline. Blood and sputum cx were neg. Patient states she did not get better after recent hospitalization. She reports persistent SOB described as constant and mild cough (not able to bring up sputum). Today when home health nurse was visiting she was SOB while in bed and felt she couldn't move. 911 was called and she was brought to ER by ambulance. Patient uses oxygen 3 liters HS at home. Patient is currently saturating 100% on 2 liters NC however she was saturating 99-100% on RA in the ER. She was treated with an hour long neb and reports feeling shaky afterwards. She admits to mild substernal CP and pleuritic right sided CP. Pain is similar to recent admission when she was ruled out for ACS, however it is less severe now. Patient reports eating/ drinking normally at home. Not taking Lasix at home. She denies fever, chills, nasal congestion, swallowing difficulty, vomiting, diarrhea, dysuria, urinary change, increased LE edema, abnormal bleeding. Past Medical/Surgical History Medical Problems: (1) Asthma Status: Chronic (2) Atrial fibrillation Status: Chronic (3) C. difficile colitis Status: Resolved (4) Chronic anticoagulation Status: Chronic (5) Chronic kidney disease Status: Chronic (6) COPD (chronic obstructive pulmonary disease) Status: Chronic (7) CVA (cerebral vascular accident) Status: Chronic (8) Diabetes mellitus, type II Status: Chronic (9) Diabetic neuropathy Status: Chronic (10) Diabetic peripheral neuropathy associated with type 2 diabetes mellitus Status: Chronic (11) Gastroparesis Status: Chronic (12) GERD (gastroesophageal reflux disease) Status: Chronic (13) History of coronary artery disease Status: Chronic (14) History of GI bleed Status: Chronic (15) Hyperlipidemia Status: Chronic (16) Hypertension Status: Chronic (17) Migraine Status: Chronic (18) Pulmonary embolism Status: Chronic (19) Sleep apnea Status: Chronic Surgical Problems: (1) H/O heart artery stent Permanent Comment: [facility] [place] Stent). Repeat catheterization August 2014 demonstrated stable moderate LAD stenosis. Status: Resolved (2) History of appendectomy Status: Resolved (3) History of total left hip arthroplasty Status: Resolved (4) Hx of removal of ovary Permanent Comment: R side Status: Resolved Family History FH: cancer MOTHER (cervical) BROTHER (skin, testicular) Social History Smoking Status: Former Smoker (smoked 0.8 ppd x 38 years) Alcohol Use: none Marital Status: Housing status: lives alone, other (has home health) Occupational Status: retired Immunizations History of Influenza Vaccine: Yes Influenza Vaccine Date: May 31, 2016 History of Tetanus Vaccine?: Yes Tetanus Immunization Date: Feb 20, 2012 History of Pneumococcal: Yes Pneumococcal Date: Nov 04, 2000 History of Hepatitis B Vaccine: No Multi-Drug Resistant Organisms History of MDRO: No Allergies Coded Allergies: Codeine (Verified Allergy, Unknown, UNKNOWN, 03/20/17) INFO FROM PT Aspirin (Verified Adverse Reaction, Intermediate, (ULCER), 03/20/17) Venlafaxine (Verified Adverse Reaction, Intermediate, DROWINESS/ CONFUSION , 03/20/17) Cephalexin (Verified Adverse Reaction, Mild, DROWSINESS, UNABLE TO DRIVE, UPSET STOMACH, 03/20/17) Oxycodone (Verified Adverse Reaction, Mild, n/v, 03/20/17) gmg Home Medications Scheduled Calcitriol (Rocaltrol), 0.5 MCG PO DAILY Diltiazem Hcl Coated Beads (Diltiazem Hcl Er), 120 MG PO DAILY Doxycycline Hyclate (Doxycycline Hyclate), 100 MG PO BID Ferrous Sulfate (Ferrous Sulfate), 325 MG PO DAILY Furosemide (Lasix), 1 TAB PO BID Home O2 Therapy (Oxygen), LITERS NA QPM Insulin Aspart (Novolog), ACHS Insulin Glargine (Lantus), 25 UNITS SQ QAM Insulin Glargine (Lantus), 11 UNITS SQ EVENING MEAL Isosorbide Mononitrate (Isosorbide Mononitrate ER), 60 MG PO DAILY Losartan Potassium (Cozaar), 100 MG PO DAILY Lovastatin (Mevacor), 80 MG PO HS Metolazone (Zaroxolyn), 2.5 MG PO WK Metoprolol Succinate (Metoprolol Succinate ER), 12.5 MG PO DAILY Omeprazole (Omeprazole), 20 MG PO DAILY Solifenacin (Vesicare), 5 MG PO DAILY Umeclidinium-Vilanterol (Anoro Ellipta 62.5-25 Mcg/INH), 1 PUFF INH DAILY Warfarin Sod (Jantoven), 4 MG PO 5XWK Warfarin Sodium (Coumadin), 2 MG PO 3XWK Scheduled PRN Benzonatate (Benzonatate), 100 MG PO TID PRN for Cough Glucose-Vitamin C (Glucose), 1 TAB PO UD PRN for LOW SUGAR Levalbuterol Hcl (Levalbuterol Hcl), 3 ML INH Q4 PRN for SOB/Wheezing Nitroglycerin (Nitrostat), 0.4 MG UT PRN PRN for Chest Pain Review of Systems 10 systems reviewed and negative except as noted in HPI. Physical Ex - H&P Physical Exam Vital Signs Date Time Temp Pulse Resp B/P (MAP) Pulse Ox O2 Delivery O2 Flow Rate FiO2 03/20/17 14:30 85 16 100 Nasal Cannula 2.0 03/20/17 13:58 89 03/20/17 13:30 88 22 160/60 100 Room Air 03/20/17 12:30 68 22 156/65 100 Nebulizer 8.0 03/20/17 12:14 99 Room Air 03/20/17 11:41 61 03/20/17 11:29 99 Room Air 03/20/17 11:29 36.5 69 24 163/63 99 Room Air 03/20/17 11:29 100 Room Air General Appearance: + obese, + pertinent finding (alert elderly female, initially appeared anxious and was hyperventilating, but was breathing calmly by end of interview) Head: normocephalic, atraumatic Eyes: normal inspection, sclerae normal ENT: hearing grossly normal, pharynx normal Neck: supple, trachea midline Respiratory/Chest: lungs clear, normal breath sounds, + pertinent finding (was initially hyperventilating, but was breathing calmly by end of interview. saturating 100% on 2 liters NC. + chest wall reproducible tenderness in substernal area.) Cardiovascular: regular rate, rhythm, no murmur Abdomen/GI: normal bowel sounds, non tender, soft Extremities/Musculoskelatal: no calf tenderness, + pertinent finding (trace pretibial edema bilaterally) Neurologic/Psych: alert, normal reflexes, + pertinent finding (anxious) Skin: warm/dry, + pertinent finding (erythema on bilateral lower legs- chronic per patient) Diagnostics - H&P Diagnostics Laboratory Results Results Past 24 Hours Test 03/20/17 12:20 03/20/17 12:40 03/20/17 12:45 03/20/17 12:46 Range/Units Influenza Type A (RT-PCR) Neg for Influ A NEG Influenza Type A Antigen Neg for Influ A NEG Influenza Type B Antigen Neg for Influ B NEG Influenza Type B (RT-PCR) Neg for Influ B NEG White Blood Count 5.40 4.8-10.8 K/uL Red Blood Count 3.77 4.2-5.4 M/uL Hemoglobin 11.4 12.0-16.0 g/dL Hematocrit 34.3 37-47 % Mean Corpuscular Volume 91.0 80-100 fL Mean Corpuscular Hemoglobin 30.2 25-34 pg Mean Corpuscular Hemoglobin Concent 33.2 32-36 g/dl Platelet Count 124 130-400 K/uL Mean Platelet Volume 11.2 7.4-10.4 fL Neutrophils (%) (Auto) 60.7 % Lymphocytes (%) (Auto) 32.6 % Monocytes (%) (Auto) 5.7 % Eosinophils (%) (Auto) 0.6 % Basophils (%) (Auto) 0.2 % Neutrophils # (Auto) 3.28 1.4-6.5 K/uL Lymphocytes # (Auto) 1.76 1.2-3.4 K/uL Monocytes # (Auto) 0.31 0.11-0.59 K/uL Eosinophils # (Auto) 0.03 0-0.5 K/uL Basophils # (Auto) 0.01 0-0.2 K/uL RDW Standard Deviation 46.6 36.4-46.3 fL RDW Coefficient of Variation 14.0 11.5-14.5 % Immature Granulocyte % (Auto) 0.2 % Immature Granulocyte # (Auto) 0.01 0.00-0.02 K/uL Prothrombin Time 20.3 9.0-12.0 SECONDS Prothromb Time International Ratio 1.8 0.9-1.1 Sodium Level 137 136-145 mmol/L Potassium Level 3.1 3.5-5.1 mmol/L Chloride Level 97 98-107 mmol/L Carbon Dioxide Level 31 21-32 mmol/L Anion Gap 9.0 18.0 16-25 mmol/L Blood Urea Nitrogen 58 7-18 mg/dl Creatinine 2.70 0.60-1.20 mg/dl Est Creatinine Clear Calc Drug Dose 20.5 ml/min Estimated GFR () 18.7 Estimated GFR (Non- 16.1 BUN/Creatinine Ratio 21.3 10-20 Random Glucose 217 70-99 mg/dl Calcium Level 9.7 8.5-10.1 mg/dl Total Bilirubin 0.7 0.2-1 mg/dl Aspartate Amino Transf (AST/SGOT) 12 15-37 U/L Alanine Aminotransferase (ALT/SGPT) 17 12-78 U/L Alkaline Phosphatase 99 45-117 U/L Total Creatine Kinase 51 26-192 U/L Creatine Kinase MB 0.6 0.5-3.6 ng/ml Creatine Kinase MB Ratio 1.2 0-3.0 Troponin I < 0.015 0-0.045 ng/ml Total Protein 6.6 6.4-8.2 gm/dl Albumin 3.5 3.4-5.0 gm/dl Globulin 3.1 2.5-4.0 gm/dl Albumin/Globulin Ratio 1.1 0.9-2 Bedside D-Dimer 217 0-450 ng/mlFEU Bedside Hemoglobin 11.2 12.0-16.0 g/dl Bedside Hematocrit 33 37-47 % Bedside Sodium 135 135-144 mEq/L Bedside Potassium 3.0 3.3-5.0 mEq/L Bedside Chloride 94 101-112 mEq/L Bedside Total CO2 28 24-31 mEq/l Bedside Blood Urea Nitrogen 50 7-18 mg/dl Bedside Creatinine 2.6 0.6-1.3 mg/dl Bedside Glucose (other) 225 70-99 mg/dl Bedside Ionized Calcium (Kendy) 1.14 1.12-1.32 mmol/l Test 03/20/17 13:49 03/20/17 15:09 Range/Units Bedside Glucose 223 70-90 mg/dl Microbiology Results 03/20/17 Blood Culture, Received Pending 03/20/17 Blood Culture, Received Pending Diagnostic Radiology CHEST ONE VIEW PORTABLE CLINICAL HISTORY: Pt c/o SOB dyspnea COMPARISON STUDY: 03/14/2017 FINDINGS: Mild stable cardiomegaly. Small parenchymal infiltrate right base. Mild emphysematous change. IMPRESSION: Small parenchymal infiltrate right base. Mild stable cardiomegaly. EKG NSR, LVH, possible old inferior infarct, no ST or T wave abnormality Impression - H&P Impression Assessment and Plan HCAP Recently hospitalized for L basilar HCAP treated with Vanc/Zozyn and d/c on doxycycline on 03/18; blood and sputum cx were neg Presents with persistent SOB/ cough CXR shows R base infiltrate No sign of sepsis Saturated 99-100% on RA; now on 2 liters NC Given Zosyn, Levaquin, Vancomycin in ER Check blood cx, sputum cx, MRSA nasal swab Continue Zosyn and Levaquin Supplemental O2 per protocol (uses 3L HS at home) KARLEE ON CKD STAGE III Creat is 2.7, was 1.8 on discharge (her approximate baseline) Hold ARB, Lasix, metolazone Given 500 mL bolus in ER Will give additional 1 liter at 75 cc/hour Recheck PRP in am Avoid nephrotoxins HYPOKALEMIA PO replacement given in ED Will give additional K+ with her IVF's Check mag- wnl Recheck PRP in am CHEST PAIN Troponin neg; EKG- no ST/ T wave abnormality Likely musculoskeletal pain in substernal area (+ chest wall tenderness) and pleuritic pain in R chest from pneumonia Ruled out for ACS on recent admission- serial CE's and EKG negative, seen by cardiology, echo done- no wall motion abnormality HISTORY OF CAD Continue Imdur, beta joe, statin ASTHMA/ COPD No wheezing on exam Received hour long neb in ER PRN nebs DM TYPE 2 Continue home Lantus Novolog sliding scale HYPERTENSION BP elevated at times Continue diltiazem Holding Lasix, metolazone, and losartan for KARLEE PRN clonidine added PAROXYSMAL AFIB Rate is controlled Continue diltiazem On Coumadin, INR 1.8 Continue Coumadin and montior INR CHRONIC DIASTOLIC CHF Appears mildly dry Receiving IVF's and diuretics held Monitor volume status DVT PROPHYLAXIS On Coumadin CODE STATUS DNR per my discussion with the patient DISPOSITION Lives alone, has home health Follows with Dr. Waterman for primary care Patient seen in collaboration w/ Dr. Carvalho. Please see his addendum. Agree with above H and P. Briefly 77F presents with sob. dorothea was rcently in hospital and reated for HCAp and dicahrged on po doycyline comes back with sob. After treatmnet in Er doing fine now. Somewhat restless about frequebnt admissions i the recent past. Afebrile. Has pleuritic chest pain. no nausea. No abdominal pain. p/e Ge obese. Not in distress Cvs s1 and s2 heard no murmurs Rs cta b/l no added sounds Abd benign Community Health Nurse Supervisor non focal a/p Sob Pneumonia recurrent hcap received Levaquin, Zosyn and vanco in er continue Zosyn and Levaquin f/u cx consider pulmonary consult for recurrent infection PAF on diltiazem and Coumadin will monitor VTE Prophylaxis VTE Risk Assessment Done? Y/N: Yes Risk Level: Moderate Given or contraindicated: Warfarin (Coumadin) Physical Exam (per Admitting): General Appearance: + obese, + pertinent finding (alert elderly female, initially appeared anxious and was hyperventilating, but was breathing calmly by end of interview) Head: normocephalic, atraumatic Eyes: normal inspection, sclerae normal ENT: hearing grossly normal, pharynx normal Neck: supple, trachea midline Respiratory/Chest: lungs clear, normal breath sounds, + pertinent finding ( was initially hyperventilating, but was breathing calmly by end of interview. saturating 100% on 2 liters NC. + chest wall reproducible tenderness in substernal area.) Cardiovascular: regular rate, rhythm, no murmur Abdomen/GI: normal bowel sounds, non tender, soft Extremities/Musculoskelatal: no calf tenderness, + pertinent finding (trace pretibial edema bilaterally) Neurologic/Psych: alert, normal reflexes, + pertinent finding (anxious) Skin: warm/dry, + pertinent finding (erythema on bilateral lower legs- chronic per patient) Hospital Course HCAP with H/O Asthma/COPD Recently hospitalized for L basilar HCAP treated with Vanc/Zozyn and d/c on doxycycline on 03/18; blood and sputum cx were neg CXR shows R base infiltrate,No sign of sepsis Continued Zosyn, Levaquin Blood cx:No growth to date MRSA nasal swab: negative Supplemental O2 per protocol (uses 3L HS at home) Plan to repeat CXR in AM if clinically no improvement Clinically much better Antibiotic changed to Only to Levaquin now Will Get CXR -no Pneumonia,9 mm pulmonary nodule -stable Will discharge this afternoon KARLEE ON CKD STAGE III Cr: Baseline 1.8 >>>2.7>>>>2.2>>>1.8 Held ARB, Lasix, metolazone secondary to KARLEE S/P IV fluids Avoid nephrotoxins Renal function is stable,Creatinine ~1.8 Potassium supplemented CHEST PAIN Troponin neg; EKG- no ST/ T wave abnormality Likely musculoskeletal: tender on palpation Ruled out for ACS on recent admission- serial CE's and EKG negative, seen by cardiology, echo done- no wall motion abnormality No more chest pain CHRONIC DIASTOLIC CHF H/P CAD -stable Recent ECHO: EF:70% Grade I diastolic dysfunction No acute symptoms DM II Continue home Lantus ISS, Accu checks HYPERTENSION Continue diltiazem Held Lasix, metolazone, and losartan for KARLEE PRN clonidine PAROXYSMAL AFIB Rate is controlled Continue diltiazem On Coumadin, INR 1.8>>>2.0>>>2.3 monitor INR DVT PX On Coumadin CODE STATUS DNR per my discussion with the patient DISPOSITION Lives alone, has home health Follows with Dr. Waterman for primary care Likely discharge today Total time spent on discharge = 35 minutes This includes examination of the patient, discharge planning, medication reconciliation, and communication with other providers. Discharge Instructions Date of Service Mar 26, 2017. Admission Reason for Admission: Karlee,Pneumonia Discharge Discharge Diagnosis / Problem: Pneumonia,COPD/Asthma Discharge Goals Goal(s): Prevent Disease Progression Activity Recommendations Activity Limitations: resume your previous activity . Instructions / Follow-Up Instructions / Follow-Up Dr Waterman on 04/01/17 at 11:15 AM,Please keep appointment with [facility] Current Hospital Diet Patient's current hospital diet: AHA Diet (Heart Healthy), Diabetes Type 2 Diet Discharge Diet Recommended Diet: AHA Diet (Heart Healthy), Diabetes Type 2 Diet Fluid Restriction: 1500 ml (6 cups) Pending Studies Studies pending at discharge: no Laboratory Results Hemoglobin A1c Test 03/14/17 02:15 Range/Units Estimated Average Glucose 160 mg/dl Hemoglobin A1c 7.2 H 4.5-5.6 % Medical Emergencies . Who to Call and When: Medical Emergencies: If at any time you feel your situation is an emergency, please call 911 immediately. . Non-Emergent Contact Non-Emergency issues call your: Primary Care Provider . Past History Medical & Surgical History: (1) Chronic kidney disease (2) Hyperlipidemia (3) Diabetes mellitus, type II (4) GERD (gastroesophageal reflux disease) (5) Hypertension (6) CVA (cerebral vascular accident) (7) Pulmonary embolism (8) COPD (chronic obstructive pulmonary disease) (9) History of GI bleed (10) Asthma (11) Diabetic neuropathy (12) History of coronary artery disease (13) KARLEE (acute kidney injury) (14) Pneumonia (15) History of appendectomy (16) History of total left hip arthroplasty (17) H/O heart artery stent (18) Hx of removal of ovary . "Provider Documentation" section prepared by Jan Pacheco. . VTE Core Measure Inpt VTE Proph given/why not?: Warfarin (Coumadin) <Electronically signed by Jan Pacheco M.D.> Additional Copies To Kerry Waterman D.O.
== END 2017-03-26 15:18 | disposition home or self-care (01) ==
LOC: EDBD 11:22 → C.EDC 11:23 → ENRESERV 15:20 → C.4E 15:46 → EDBEDREQ 15:48
PROVIDERS: ADMIT Internal Medicine; ATTEND Internal Medicine
DX: J18.9 Pneumonia, unspecified organism (principal); N17.9 Acute kidney failure, unspecified; E11.22 Type 2 diabetes mellitus with diabetic chronic kidney disease; I50.32 Chronic diastolic (congestive) heart failure; I13.0 Hypertensive heart and chronic kidney disease with heart failure and stage 1 through stage 4 chronic kidney disease, or unspecified chronic kidney disease; N18.3 Chronic kidney disease, stage 3 (moderate); E87.6 Hypokalemia; E11.42 Type 2 diabetes mellitus with diabetic polyneuropathy; E11.43 Type 2 diabetes mellitus with diabetic autonomic (poly)neuropathy; K31.84 Gastroparesis; J44.9 Chronic obstructive pulmonary disease, unspecified; I48.0 Paroxysmal atrial fibrillation; I25.10 Atherosclerotic heart disease of native coronary artery without angina pectoris; G47.36 Sleep related hypoventilation in conditions classified elsewhere; G47.30 Sleep apnea, unspecified; K21.9 Gastro-esophageal reflux disease without esophagitis; E78.5 Hyperlipidemia, unspecified; Z86.73 Personal history of transient ischemic attack (TIA), and cerebral infarction without residual deficits; Z86.711 Personal history of pulmonary embolism; Z95.5 Presence of coronary angioplasty implant and graft; Z87.891 Personal history of nicotine dependence; Z79.4 Long term (current) use of insulin; Z79.01 Long term (current) use of anticoagulants; Z79.899 Other long term (current) drug therapy; Z99.81 Dependence on supplemental oxygen

== ENCOUNTER 2017-03-28 10:01 | Observation (INO) | payer OTHER ==
[~2017-03-28] VITALS: Ht 165.1 cm; Wt 106.0 kg
[~2017-03-28 10:01] MED LIST changes: -DXY100 PO; +LCTX PO; +LVQ750 PO
[2017-03-28 10:50] LABS: BASO % 0.2 %; BASO ABS # 0.01 K/uL (0-0.2); COMPLETE YES; EOS % 1.3 %; HEMATOCRIT 34.4 % (37-47); IG% 0.2 %; LYMPH % 27.7 %; MEAN CELL VOLUME 91.7 fL (80-100); MEAN CORPUSCULAR HEMOGLOBIN 30.1 pg (25-34); MEAN CORPUSCULAR HGB CONC 32.8 g/dl (32-36); MEAN PLATELET VOLUME 10.9 fL (7.4-10.4); MONO % 9.6 %; PLATELET COUNT 107 K/uL (130-400); RED BLOOD COUNT 3.75 M/uL (4.2-5.4)
[2017-03-28] MEDS ORDERED: SODIUM CHLORIDE 0.9% 1000ML 1,000 ML IV STA (10:53)
--- NOTE | 2017-03-28 10:57 | EMERGENCY ROOM VISIT NOTE ---
History Report prepared by Natalya: Joan Muse Under the Supervision of: Dr. Alanna Leyva M.D. First contact with patient: 10:40 Chief Complaint: ILLNESS Stated Complaint: SHORTNESS OF BREATH History of Present Illness The patient is a 77 year old female who presents to the Emergency Room with complaints of a persistent illness that began several days ago. She currently rates her discomfort as a 5/10 in severity. The patient states that she woke this morning not feeling well, noting that she currently has pneumonia and is currently on antibiotics. She states that this morning she had a bowl of cereal and coffee and after she developed generalized body pain. The patient denies any vomiting. She states that she lives at home alone. The patient notes leg weakness and chest pain. Source of History: patient Onset: several days ago Position: other (global) Symptom Intensity: 5/10 Quality: other (illness) Timing: other (persistent) Associated Symptoms: + chest pain, + weakness (leg), No vomiting Review of Systems See HPI for pertinent positives & negatives. A total of 10 systems reviewed and were otherwise negative. Past Medical & Surgical Medical Problems: (1) KARLEE (acute kidney injury) (2) Asthma (3) Atrial fibrillation (4) Atypical chest pain (5) C. difficile colitis (6) Chronic anticoagulation (7) Chronic kidney disease (8) COPD (chronic obstructive pulmonary disease) (9) COPD exacerbation (10) CVA (cerebral vascular accident) (11) Diabetes mellitus, type II (12) Diabetic neuropathy (13) Diabetic peripheral neuropathy associated with type 2 diabetes mellitus (14) Gastroparesis (15) GERD (gastroesophageal reflux disease) (16) History of coronary artery disease (17) History of GI bleed (18) Hyperlipidemia (19) Hypertension (20) Migraine (21) mood disorder related to medical conditions (22) Pulmonary embolism (23) Sleep apnea (24) SOB (shortness of breath) Surgical Problems: (1) H/O heart artery stent (2) History of appendectomy (3) History of total left hip arthroplasty (4) Hx of removal of ovary Family History FH: cancer MOTHER (cervical) BROTHER (skin, testicular) Social History Smoking Status: Former Smoker Alcohol Use: none Marital Status: Housing Status: lives alone Occupation Status: retired Current/Historical Medications Scheduled Calcitriol (Rocaltrol), 0.5 MCG PO DAILY Diltiazem Hcl Coated Beads (Diltiazem Hcl Er), 120 MG PO DAILY Ferrous Sulfate (Ferrous Sulfate), 325 MG PO DAILY Furosemide (Lasix), 1 TAB PO BID Home O2 Therapy (Oxygen), LITERS NA QPM Insulin Aspart (Novolog), ACHS Insulin Glargine (Lantus), 25 UNITS SQ QAM Insulin Glargine (Lantus), 11 UNITS SQ EVENING MEAL Isosorbide Mononitrate (Isosorbide Mononitrate ER), 60 MG PO DAILY Lactobacillus Acidophilus (Lactinex), 2 TAB PO BID Levofloxacin (Levofloxacin), 750 MG PO Q48H Losartan Potassium (Cozaar), 100 MG PO DAILY Lovastatin (Mevacor), 80 MG PO HS Metolazone (Zaroxolyn), 2.5 MG PO WK Metoprolol Succinate (Metoprolol Succinate ER), 12.5 MG PO DAILY Omeprazole (Omeprazole), 20 MG PO DAILY Solifenacin (Vesicare), 5 MG PO DAILY Umeclidinium-Vilanterol (Anoro Ellipta 62.5-25 Mcg/INH), 1 PUFF INH DAILY Warfarin Sod (Jantoven), 4 MG PO 4XWK Warfarin Sodium (Coumadin), 2 MG PO 3XWK Scheduled PRN Benzonatate (Benzonatate), 100 MG PO TID PRN for Cough Glucose-Vitamin C (Glucose), 1 TAB PO UD PRN for LOW SUGAR Levalbuterol Hcl (Levalbuterol Hcl), 3 ML INH Q4 PRN for SOB/Wheezing Nitroglycerin (Nitrostat), 0.4 MG UT PRN PRN for Chest Pain Allergies Coded Allergies: Codeine (Verified Allergy, Unknown, UNKNOWN, 03/20/17) INFO FROM PT Aspirin (Verified Adverse Reaction, Intermediate, (ULCER), 03/20/17) Venlafaxine (Verified Adverse Reaction, Intermediate, DROWINESS/ CONFUSION , 03/20/17) Cephalexin (Verified Adverse Reaction, Mild, DROWSINESS, UNABLE TO DRIVE, UPSET STOMACH, 03/20/17) Oxycodone (Verified Adverse Reaction, Mild, n/v, 03/20/17) gmg Physical Exam Vital Signs Date Time Temp Pulse Resp B/P (MAP) Pulse Ox O2 Delivery O2 Flow Rate FiO2 7/29/17 11:41 58 22 169/60 99 Room Air 03/28/17 10:12 95 Room Air 03/28/17 10:12 36.6 70 20 139/98 98 Room Air 03/28/17 10:10 59 Physical Exam Vital signs reviewed. General: Obese, somewhat deconditioned-appearing female, in no significant distress. HEENT: No scleral icterus, PERRLA, neck supple. Atraumatic. Cardiovascular: Regular rate and rhythm, no extra sounds. Pulmonary: Clear to auscultation bilaterally, normal work of breathing. Abdomen: Soft, nontender, nondistended, positive bowel sounds. Musculoskeletal: Atraumatic, no peripheral edema. Neurologic: Patient awake alert and oriented x 3, full strength in all 4 extremities. Cranial nerves 2 through 12 grossly intact. Skin: Warm, dry, no rash Medical Decision & Procedures ER Provider Diagnostic Interpretation: X-ray results as stated below per interpretation by me and the radiologist: CHEST ONE VIEW PORTABLE CLINICAL HISTORY: Shortness of breath. COMPARISON STUDY: Chest radiograph March 25, 2017. FINDINGS: There is no pneumothorax or pleural effusion. Pulmonary vascularity is normal. Cardiomediastinal silhouette is unchanged. Mild cardiomegaly is again noted. A 9 mm right upper lobe nodule is unchanged from earlier exams. This is benign given stability. The appearance of the chest is unchanged. IMPRESSION: No acute cardiopulmonary findings. No change in appearance of the chest. Electronically signed by: Christophe Cagle M.D. 03/28/2017 11:01 AM Dictated Date/Time: 03/28/2017 10:59 AM Laboratory Results 03/28/17 10:25 Red Blood Count 3.75, Mean Corpuscular Volume 91.7, Mean Corpuscular Hemoglobin 30.1, Mean Corpuscular Hemoglobin Concent 32.8, Mean Platelet Volume 10.9, Neutrophils (%) (Auto) 61.0, Lymphocytes (%) (Auto) 27.7, Monocytes (%) (Auto) 9.6, Eosinophils (%) (Auto) 1.3, Basophils (%) (Auto) 0.2, Neutrophils # (Auto) 2.87, Lymphocytes # (Auto) 1.30, Monocytes # (Auto) 0.45, Eosinophils # (Auto) 0.06, Basophils # (Auto) 0.01 03/28/17 10:25 Test 03/28/17 10:25 03/28/17 10:51 03/28/17 11:00 White Blood Count 4.70 K/uL (4.8-10.8) Red Blood Count 3.75 M/uL (4.2-5.4) Hemoglobin 11.3 g/dL (12.0-16.0) Hematocrit 34.4 % (37-47) Mean Corpuscular Volume 91.7 fL (80-100) Mean Corpuscular Hemoglobin 30.1 pg (25-34) Mean Corpuscular Hemoglobin Concent 32.8 g/dl (32-36) Platelet Count 107 K/uL (130-400) Mean Platelet Volume 10.9 fL (7.4-10.4) Neutrophils (%) (Auto) 61.0 % Lymphocytes (%) (Auto) 27.7 % Monocytes (%) (Auto) 9.6 % Eosinophils (%) (Auto) 1.3 % Basophils (%) (Auto) 0.2 % Neutrophils # (Auto) 2.87 K/uL (1.4-6.5) Lymphocytes # (Auto) 1.30 K/uL (1.2-3.4) Monocytes # (Auto) 0.45 K/uL (0.11-0.59) Eosinophils # (Auto) 0.06 K/uL (0-0.5) Basophils # (Auto) 0.01 K/uL (0-0.2) RDW Standard Deviation 46.8 fL (36.4-46.3) RDW Coefficient of Variation 14.0 % (11.5-14.5) Immature Granulocyte % (Auto) 0.2 % Immature Granulocyte # (Auto) 0.01 K/uL (0.00-0.02) Prothrombin Time 18.9 SECONDS (9.0-12.0) Prothromb Time International Ratio 1.7 (0.9-1.1) Activated Partial Thromboplast Time 32.9 SECONDS (21.0-31.0) Partial Thromboplastin Ratio 1.3 Anion Gap 8.0 mmol/L (3-11) Est Creatinine Clear Calc Drug Dose 24.4 ml/min Estimated GFR () 22.7 Estimated GFR (Non- 19.6 BUN/Creatinine Ratio 21.8 (10-20) Calcium Level 10.2 mg/dl (8.5-10.1) Total Bilirubin 0.5 mg/dl (0.2-1) Aspartate Amino Transf (AST/SGOT) 15 U/L (15-37) Alanine Aminotransferase (ALT/SGPT) 16 U/L (12-78) Alkaline Phosphatase 92 U/L (45-117) Total Creatine Kinase 69 U/L (26-192) Creatine Kinase MB 1.1 ng/ml (0.5-3.6) Total Protein 6.5 gm/dl (6.4-8.2) Albumin 3.2 gm/dl (3.4-5.0) Globulin 3.3 gm/dl (2.5-4.0) Albumin/Globulin Ratio 1.0 (0.9-2) Creatine Kinase MB Ratio (0-3.0) Bedside Troponin I < 0.030 ng/ml (0-0.045) Laboratory results per my review. Medications Administered Medications (Trade) Dose Ordered Sig/Rose Route Start Time Stop Time Status Last Admin Dose Admin Sodium Chloride 1,000 ml @ 125 mls/hr Q8H STAT IV 03/28/17 10:53 03/28/17 18:52 03/28/17 12:03 125 MLS/HR Sodium Chloride 250 ml @ 999 mls/hr Q16M STAT IV 03/28/17 11:11 03/28/17 11:26 DC 03/28/17 11:41 999 MLS/HR ECG Indication: weakness Rate (beats per minute): 58 Rhythm: sinus bradycardia Findings: PAC, no acute ischemic change, other (previous inferior infarct, previous septal infarct) ED Course 1047: Past medical records reviewed. The patient was evaluated in room A4B. A complete history and physical examination was performed. 1053: Ordered Sodium Chloride 1000 ml @ 125 mls/hr IV, Sodium Chloride 250 ml @ 999 mls/hr IV. 1118: I discussed the patients case with Tom Watson. She states that she will come and consult the patient for further treatment and evaluation. Medical Decision Differential diagnosis: Etiologies such as metabolic, infection, hypo/hyperglycemia, electrolyte abnormalities, cardiac sources, intracerebral event, toxicologic, neurologic, as well as others were entertained. This patient was evaluated and appeared to be in no significant distress. IV access was obtained and laboratory work was drawn. The patient was placed on the mechatronics technician and found to be in a sinus bradycardia. The patient's laboratory work reveals an acute on chronic renal insufficiency with a creatinine of 2.3. Patient was hydrated with normal saline solution, given a 250 mL bolus that she doesn't a history of congestive heart failure. She is on diuretic therapy. As the patient has had frequent evaluations by the hospitalist service, she was called as a consult. Dr. Pacheco evaluated the patient and agreed to keep her for further management. Medication Reconcilliation Current Medication List: was personally reviewed by me Blood Pressure Screening Patient's blood pressure: Elevated blood pressure The patient was referred to the hospitalist. Consults Time Called: 1113 Consulting Physician: Tom Watson Returned Call: 1118 I discussed the patients case with Tom Watson. She states that she will come and consult the patient for further treatment and evaluation. Impression Primary Impression: KARLEE (acute kidney injury) Additional Impression: Weakness Scribe Attestation The scribe's documentation has been prepared under my direction and personally reviewed by me in its entirety. I confirm that the note above accurately reflects all work, treatment, procedures, and medical decision making performed by me. Departure Information Dispostion Being Evaluated By Hospitalist Referrals Kerry Waterman D.O. (PCP) Problem Qualifiers
--- NOTE | 2017-03-28 11:03 | DIAGNOSTIC IMAGING REPORT ---
CHEST ONE VIEW PORTABLE CLINICAL HISTORY: Shortness of breath. COMPARISON STUDY: Chest radiograph March 25, 2017. FINDINGS: There is no pneumothorax or pleural effusion. Pulmonary vascularity is normal. Cardiomediastinal silhouette is unchanged. Mild cardiomegaly is again noted. A 9 mm right upper lobe nodule is unchanged from earlier exams. This is benign given stability. The appearance of the chest is unchanged. IMPRESSION: No acute cardiopulmonary findings. No change in appearance of the chest. Electronically signed by: Christophe Cagle M.D. 03/28/2017 11:01 AM Dictated Date/Time: 03/28/2017 10:59 AM
[2017-03-28 11:04] LABS: INR 1.7 (0.9-1.1); PARTIAL THROMBOPLASTIN RATIO 1.3; PROTHROMBIN TIME (PATIENT) 18.9 SECONDS (9.0-12.0)
[2017-03-28 11:09] LABS: BUN/CREATININE RATIO 21.8 (10-20); CALCIUM 10.2 mg/dl (8.5-10.1); CREATININE 2.3 mg/dl (0.60-1.20); POTASSIUM 3.4 mmol/L (3.5-5.1)
[2017-03-28] MEDS ORDERED: SODIUM CHLORIDE 0.9% 250ML 250 ML IV STA (11:11)
[2017-03-28 11:29] LABS: CKMB/CK RATIO 1.6 (0-3.0)
[2017-03-28 11:58] VITALS: Ht 165.1 cm; Wt 106.0 kg
[2017-03-28] MEDS ORDERED: ONDANSETRON INJ 2 MG/ML 2 ML VIAL IV PRN (12:00)
[2017-03-28] MEDS ORDERED: BENZONATATE 100MG CAP PO PRN (12:15)
[2017-03-28] MEDS ORDERED: LEVALBUTEROL 1.25MG/3ML NEB INH PRN (12:15)
[2017-03-28] MEDS ORDERED: GLUCOSE 5 GM CHEWABLE TABLET PO PRN (12:15)
[2017-03-28] MEDS ORDERED: NITROGLYCERIN 0.4 MG SL PER TAB CHARGE UT PRN (12:15)
--- NOTE | 2017-03-28 13:17 | HISTORY & PHYSICAL EXAMINATION ---
DATE OF ADMISSION: 03/28/2017 PRIMARY CARE PHYSICIAN: Dr. Waterman. CHIEF COMPLAINT: Shortness of breath with right-sided chest pain this morning. HISTORY OF PRESENT COMPLAINT: She is a 77-year-old female with significant past medical history including chronic ischemic heart disease, paroxysmal atrial fibrillation on anticoagulation, COPD, diabetes with polyneuropathy, hypertension, hyperlipidemia, obesity and apparently was in hospital recently with pneumonia. She went home day before yesterday and this morning she was trying to go to the bathroom, at that time she got very weak, tired, generalized pain all over and pain mostly in the right upper chest wall associated with some shortness of breath. She called 911 and she was brought into the hospital for further evaluation. When asking questions, she denies to have any fever, chills or rigors. Denies to have any problem with urine and/or bowel habit. She has had this kind of symptoms before and for that she was in the hospital on multiple occasions. Starting 02/09/2017 until now she has had 3 admissions to the hospital. She lives alone and her daughter actually is out of town at this time. She is very anxious and afraid to go back to her apartment. In the ER, she was still anxious and shortness of breath and apparent test came out to be negative except creatinine was slightly elevated to more than 2. From that point, she was admitted to telemetry unit for continuation of care. PAST MEDICAL HISTORY: Significant for chronic ischemic heart disease, paroxysmal atrial fibrillation on anticoagulation, diabetes with polyneuropathy, COPD on oxygen, hypertension, hyperlipidemia, history of gastroparesis and obesity. PAST SURGICAL HISTORY: Significant for appendectomy, breast biopsy for a cyst, cystoscope in the past, robotic laparoscopic colpopexy, oophorectomy, total hip replacement. FAMILY HISTORY: Brother had testicular cancer. Mother had cervical cancer. Father some mental disorder with history of alcoholism. SOCIAL HISTORY: She is a . She has 4 children. She lives alone. She quit smoking in 1995. She does not use any alcohol and she has been reasonably ambulant. ALLERGIES: SHE IS ALLERGIC TO CODEINE, ASPIRIN, VENLAFAXINE, CEPHALEXIN AND OXYCODONE. MEDICATIONS: She has been on Tessalon Pearle 100 mg b.i.d., diltiazem 120 mg daily, ferrous sulfate 325 mg daily, furosemide 40 mg b.i.d., Glucose tablet as directed, NovoLog insulin as directed, Lantus 11 units subQ in the evening, Lantus 25 units subQ in the morning, isosorbide mononitrate 60 mg daily, lactobacillus as directed, Xopenex inhaler as directed, Levofloxacin 150 mg daily for 4 days, Cozaar 100 mg daily, metolazone 2.5 mg every week, metoprolol succinate 25 mg tablet 12.5 mg daily, Nitrostat as directed, warfarin as directed, home oxygen therapy, Mevacor 80 mg at night, omeprazole 20 mg daily, VESIcare 5 mg daily, and Rocaltrol 0.5 mg daily. REVIEW OF SYSTEMS: Other system review unremarkable except those mentioned in history of present illness. LABORATORY DATA: Noted today white count was 4.70, H&H 11.3/34.4, platelet was 107. Sodium 139, potassium normal, chloride 100, carbon dioxide 31, BUN 50, creatinine 2.30. Random glucose 141, calcium 10.2. LFTs unremarkable. Troponin was less than 0.030. Protime INR was 1.7. Chest x-ray reported as no acute cardiopulmonary finding. An EKG was in sinus rhythm, rate of around 60 per minute, no acute ST-T wave changes. IMPRESSION AND PLAN: 1. Shortness of breath, likely secondary to mild chronic obstructive pulmonary disease exacerbation. The patient will be admitted to telemetry unit. We will give nebulized bronchodilator. We will give a small dose of steroid and monitor in telemetry unit. 2. She will be getting antibiotic to finish the course from recent pneumonia treatment. 3. Chest pain. Seems to be atypical on the right side, has had pain before. She had an echocardiogram done in January and that did show preserved LV function with no wall motion abnormality. She had catheterization in August 2014 that did show moderate LAD and medical did treatment was contemplated. She was also seen by scout sniper during her last admission in this hospital on 16 of March and no further workup was advised. We will do serial cardiac enzymes to rule out any acute coronary syndrome. 4. Diabetes type 2. Continue with her current insulin doses and put her on sliding scale coverage in the hospital. 5. Hypertension. Continue current medications. 6. Gastrointestinal prophylaxis with PPI. 7. Deep venous thrombosis prophylaxis, has been on Coumadin. 8. Hyperlipidemia. Continue with statin. 9. CODE STATUS. SHE WILL BE A FULL CODE. 10. In my clinical assessment, the beneficiary meets criteria as per CMS for 2 midnight stay in the hospital. RAYNA
[2017-03-28 13:45] VITALS: BP 197/74; PULSE 64; TEMP 36.7; O2SAT 97
[2017-03-28] MEDS ORDERED: GLUCOSE 40% GEL 15 GM TUBE PO PRN (13:45)
[2017-03-28] MEDS ORDERED: GLUCAGON FOR INJ 1 MG VIAL SQ PRN (13:45)
[2017-03-28] MEDS ORDERED: DEXTROSE 50% 50 ML SYR IV PRN (13:45)
[2017-03-28] MEDS ORDERED: GLUCOSE 10 TABS/TUBE PO PRN (13:45)
[2017-03-28 14:52] VITALS: BP 136/69
[2017-03-28 15:15] VITALS: BP 149/68; PULSE 65; TEMP 36.7; O2SAT 100
[2017-03-28] MEDS ORDERED: IV FLUIDS COMPLETED PRN (15:15)
[2017-03-28 15:17] LABS: URINE APPEARANCE CLEAR (CLEAR); URINE BILIRUBIN NEG (NEG); URINE COLOR YELLOW; URINE EPITHELIAL CELL AUTO >30 /lpf (0-5); URINE NITRITE NEG (NEG); URINE PH 7.5 (4.5-7.5); URINE SPECIFIC GRAVITY 1.011 (1.000-1.030); UROBILINOGEN NEG (NEG); ZZUR CULT IF INDIC CLEAN CATCH NO
[2017-03-28 15:21] LABS: MANUAL MICROSCOPIC REQUIRED? NO; REVIEW REQ? NO
[2017-03-28] MEDS: WARFARIN SOD 4 MG TAB PO SCH (16:03)
[2017-03-28] MEDS: ACETAMINOPHEN 325 MG TAB PO PRN (16:21)
[2017-03-28] MEDS: INSULIN ASPART 100 UNITS/ML 3 ML PEN SC SCH ×2 (17:26→20:31)
[2017-03-28] MEDS ORDERED: POTASSIUM CHLORIDE 10 MEQ TABCR PO STA (17:33)
[2017-03-28] MEDS ORDERED: [UNRECOGNIZED DRUG - OTHER] IV PRN (17:45)
[2017-03-28] MEDS ORDERED: ACETAMINOPHEN IV 100 ML IV PRN (17:45)
[2017-03-28] MEDS ORDERED: DEXTROSE 5% IV PRN (17:45)
[2017-03-28 18:52] VITALS: BP 161/62; PULSE 62; TEMP 36.5; O2SAT 99
[2017-03-28 19:09] LABS: CKMB/CK RATIO 1.3 (0-3.0)
[2017-03-28 20:00] VITALS: O2SAT 99
[2017-03-28] MEDS: LOVASTATIN 20 MG TAB PO SCH (20:25)
[2017-03-28] MEDS: LACTOBACILLUS ACIDOPHILUS (FLORANEX) TAB PO SCH (20:25)
[2017-03-28] MEDS: INSULIN GLARGINE SOLOSTAR 100 UNITS/ML 3 ML PEN SQ SCH (20:31)
[2017-03-28 22:51] VITALS: BP 137/60; PULSE 64; TEMP 36.5; O2SAT 100
[2017-03-29 00:27] LABS: CKMB/CK RATIO 1.4 (0-3.0)
[2017-03-29 02:33] VITALS: BP 125/70; PULSE 71; TEMP 36.5; O2SAT 97
[2017-03-29 05:59] LABS: HEMATOCRIT 33.3 % (37-47); MEAN CELL VOLUME 92.2 fL (80-100); MEAN CORPUSCULAR HEMOGLOBIN 30.5 pg (25-34); RED BLOOD COUNT 3.61 M/uL (4.2-5.4)
[2017-03-29 06:08] LABS: INR 1.9 (0.9-1.1); PROTHROMBIN TIME (PATIENT) 20.6 SECONDS (9.0-12.0)
[2017-03-29 06:23] LABS: MEAN PLATELET VOLUME 10.2 fL (7.4-10.4); PLATELET COUNT 90 K/uL (130-400); PLT ESTIMATE DECREASED
[2017-03-29 06:31] LABS: BLOOD UREA NITROGEN 49 mg/dl (7-18); BUN/CREATININE RATIO 19.7 (10-20); CALCIUM 9.6 mg/dl (8.5-10.1); CARBON DIOXIDE 33 mmol/L (21-32); CHLORIDE 102 mmol/L (98-107); GLUCOSE 207 mg/dl (70-99); MAGNESIUM 2.3 mg/dl (1.8-2.4); POTASSIUM 3.6 mmol/L (3.5-5.1); SODIUM 139 mmol/L (136-145)
[2017-03-29 06:36] LABS: CKMB/CK RATIO 2.2 (0-3.0)
[2017-03-29 07:06] VITALS: BP 161/66; PULSE 70; TEMP 36.5; O2SAT 100
[2017-03-29] MEDS: INSULIN ASPART 100 UNITS/ML 3 ML PEN SC SCH ×4 (08:14→20:16)
[2017-03-29] MEDS: INSULIN GLARGINE SOLOSTAR 100 UNITS/ML 3 ML PEN SQ SCH ×2 (08:15→20:20)
[2017-03-29] MEDS: DILTIAZEM HCL 120 MG CAPCR PO SCH (08:17)
[2017-03-29] MEDS: ISOSORBIDE MONONITRATE 60 MG TABCR PO SCH (08:18)
[2017-03-29] MEDS: LOSARTAN POTASSIUM 50 MG TAB PO SCH (08:18)
[2017-03-29] MEDS: LACTOBACILLUS ACIDOPHILUS (FLORANEX) TAB PO SCH ×2 (08:19→20:18)
[2017-03-29] MEDS: PANTOprazole SOD 40 MG TAB PO SCH (08:19)
[2017-03-29] MEDS: FERROUS SULFATE 325 MG TAB PO SCH (08:19)
[2017-03-29] MEDS: CALCITRIOL 0.25 MCG CAP PO SCH (08:19)
[2017-03-29] MEDS: METOPROLOL SUCC 25MG EXT REL TAB PO SCH (08:20)
[2017-03-29] MEDS: NSS + 20MEQ KCL 1000ML 1,000 ML IV SCH ×2 (09:31→20:18)
--- NOTE | 2017-03-29 10:42 | Progress Note ---
Internal Med Progress Note Date of Service: Mar 29, 2017. Provider Documentation: SUBJECTIVE: The patient was seen and examined Lying in bed comfortably but complains of SOB Generalized body ache is better Denies any CP today OBJECTIVE: Vital Signs-as noted below Exam: General-No distress at rest Eyes-normal ENT-normal Neck-supple Lungs-Decreased breath sound bilaterally Heart-Regular ,no murmur appreciated Abdomen-Benign,distended,soft and nontender,,no masses,bowel sound present Extremities-Trace edema bilaterally Chronic skin changes bilaterally Neuro-AAOx3 Lab data as noted below. ASSESSMENT & PLAN: Shortness of breath, -likely secondary to mild chronic obstructive pulmonary disease exacerbation. - nebulized bronchodilator,oxygen and small dose of Steroid - antibiotic to finish the course from recent pneumonia treatment. -clinically better today -Recurrent admission with SOB without any drop in Saturation -Lives alone and probably will be better off with 24 hour care placement -social service consulted Chest pain with Generalized body Pain Seems to be atypical on the right side, -has had pain before. -She had an echocardiogram done in January and that did show preserved LV function with no wall motion abnormality. -She had catheterization in August 2014 that did show moderate LAD and medical did treatment was contemplated. -She was also seen by hard candy batch mixer during her last admission in this hospital on 16 of March and no further workup was advised. -serial cardiac enzymes -negative for any ACS KARLEE on CKD Complicated by Dehydration Will hold Lasix and Metolazone Gentle amount of IVF Monitor Renal function Diabetes type 2. Continue with her current insulin doses and put her on sliding scale coverage in the hospital. Hypertension. Continue current medications. Gastrointestinal prophylaxis with PPI. Deep venous thrombosis prophylaxis, has been on Coumadin. Hyperlipidemia. Continue with statin. CODE STATUS. SHE WILL BE A FULL CODE. Vital Signs: Date Time Temp Pulse Resp B/P (MAP) Pulse Ox O2 Delivery O2 Flow Rate FiO2 03/29/17 07:06 36.5 70 18 161/66 (97) 100 Room Air 03/29/17 04:00 Room Air 03/29/17 02:33 36.5 71 18 125/70 (88) 97 Room Air 03/29/17 00:00 Room Air 03/28/17 22:51 36.5 64 17 137/60 (85) 100 Room Air 03/28/17 20:00 99 Room Air 03/28/17 18:52 36.5 62 18 161/62 (95) 99 Room Air 03/28/17 16:00 Room Air 03/28/17 15:15 36.7 65 19 149/68 (95) 100 Room Air 03/28/17 14:52 136/69 (91) 03/28/17 13:45 Room Air 03/28/17 13:45 36.7 64 16 197/74 (115) 97 Room Air 03/28/17 13:13 62 22 138/62 95 Room Air 03/28/17 11:58 Room Air 03/28/17 11:41 58 22 169/60 99 Room Air Lab Results: Results Past 24 Hours Test 03/28/17 10:51 03/28/17 11:00 03/28/17 15:00 03/28/17 16:39 Range/Units Creatine Kinase MB Ratio 0-3.0 Bedside Troponin I < 0.030 0-0.045 ng/ml Urine Color YELLOW Urine Appearance CLEAR CLEAR Urine pH 7.5 4.5-7.5 Urine Specific [place] 1.011 1.000-1.030 Urine Protein NEG NEG Urine Glucose (UA) NEG NEG Urine Ketones NEG NEG Urine Occult Blood NEG NEG Urine Nitrite NEG NEG Urine Bilirubin NEG NEG Urine Urobilinogen NEG NEG Urine Leukocyte Esterase TRACE NEG Urine WBC (Auto) 1-5 0-5 /hpf Urine RBC (Auto) 0-4 0-4 /hpf Urine Hyaline Casts (Auto) 1-5 0-5 /lpf Urine Epithelial Cells (Auto) >30 0-5 /lpf Urine Bacteria (Auto) NEG NEG Bedside Glucose 160 70-90 mg/dl Test 03/28/17 18:17 03/28/17 20:25 03/28/17 23:02 03/28/17 23:31 Range/Units Total Creatine Kinase 61 57 26-192 U/L Creatine Kinase MB 0.8 0.8 0.5-3.6 ng/ml Creatine Kinase MB Ratio 1.3 1.4 0-3.0 Troponin I < 0.015 < 0.015 0-0.045 ng/ml Bedside Glucose 172 69 70-90 mg/dl Test 03/28/17 23:57 03/29/17 02:16 03/29/17 04:35 03/29/17 05:43 Range/Units Bedside Glucose 117 192 208 70-90 mg/dl White Blood Count 3.50 4.8-10.8 K/uL Red Blood Count 3.61 4.2-5.4 M/uL Hemoglobin 11.0 12.0-16.0 g/dL Hematocrit 33.3 37-47 % Mean Corpuscular Volume 92.2 80-100 fL Mean Corpuscular Hemoglobin 30.5 25-34 pg Mean Corpuscular Hemoglobin Concent 33.0 32-36 g/dl RDW Standard Deviation 47.7 36.4-46.3 fL RDW Coefficient of Variation 14.1 11.5-14.5 % Platelet Count 90 130-400 K/uL Mean Platelet Volume 10.2 7.4-10.4 fL Platelet Estimate DECREASED Prothrombin Time 20.6 9.0-12.0 SECONDS Prothromb Time International Ratio 1.9 0.9-1.1 Sodium Level 139 136-145 mmol/L Potassium Level 3.6 3.5-5.1 mmol/L Chloride Level 102 98-107 mmol/L Carbon Dioxide Level 33 21-32 mmol/L Anion Gap 4.0 3-11 mmol/L Blood Urea Nitrogen 49 7-18 mg/dl Creatinine 2.50 0.60-1.20 mg/dl Est Creatinine Clear Calc Drug Dose 22.0 ml/min Estimated GFR () 20.5 Estimated GFR (Non- 17.7 BUN/Creatinine Ratio 19.7 10-20 Random Glucose 207 70-99 mg/dl Calcium Level 9.6 8.5-10.1 mg/dl Magnesium Level 2.3 1.8-2.4 mg/dl Total Creatine Kinase 50 26-192 U/L Creatine Kinase MB 1.1 0.5-3.6 ng/ml Creatine Kinase MB Ratio 2.2 0-3.0 Troponin I < 0.015 0-0.045 ng/ml Test 03/29/17 06:42 Range/Units Bedside Glucose 199 70-90 mg/dl Microbiology Results 03/28/17 Blood Culture, Received Pending
[2017-03-29 11:31] VITALS: BP 134/64; PULSE 69; TEMP 36.6; O2SAT 98
[2017-03-29 13:05] LABS: CKMB/CK RATIO 1.1 (0-3.0)
[2017-03-29 15:50] VITALS: BP 149/68; PULSE 66; TEMP 36.4; O2SAT 100
[2017-03-29 15:50] LABS: INR 2.2 (0.9-1.1); PROTHROMBIN TIME (PATIENT) 23.9 SECONDS (9.0-12.0)
[2017-03-29] MEDS: WARFARIN SOD 4 MG TAB PO SCH (16:38)
[2017-03-29 19:10] VITALS: BP 125/57; PULSE 64; TEMP 36.6; O2SAT 98
[2017-03-29] MEDS: LOVASTATIN 20 MG TAB PO SCH (20:18)
[2017-03-29 23:10] VITALS: BP 156/68; PULSE 64; TEMP 36.8; O2SAT 95
[2017-03-30] VITALS (7 sets, daily range): BP systolic 137–188; BP diastolic 54–73; PULSE 58–66; TEMP 36.3–36.8; O2SAT 98–100
[2017-03-30] MEDS: ACETAMINOPHEN 325 MG TAB PO PRN ×2 (04:24→08:24)
[2017-03-30 06:12] LABS: HEMATOCRIT 31.8 % (37-47); MEAN CORPUSCULAR HEMOGLOBIN 30.7 pg (25-34); RED BLOOD COUNT 3.42 M/uL (4.2-5.4)
[2017-03-30 06:29] LABS: INR 2.2 (0.9-1.1); PROTHROMBIN TIME (PATIENT) 24.4 SECONDS (9.0-12.0)
[2017-03-30 06:48] LABS: MEAN PLATELET VOLUME 10.7 fL (7.4-10.4); PLATELET COUNT 85 K/uL (130-400)
[2017-03-30 06:50] LABS: BUN/CREATININE RATIO 20.1 (10-20); CALCIUM 9.3 mg/dl (8.5-10.1); CREATININE 2.1 mg/dl (0.60-1.20); POTASSIUM 3.8 mmol/L (3.5-5.1)
[2017-03-30] MEDS: ISOSORBIDE MONONITRATE 60 MG TABCR PO SCH (08:24)
[2017-03-30] MEDS: FERROUS SULFATE 325 MG TAB PO SCH (08:24)
[2017-03-30] MEDS: LOSARTAN POTASSIUM 50 MG TAB PO SCH (08:25)
[2017-03-30] MEDS: CALCITRIOL 0.25 MCG CAP PO SCH (08:25)
[2017-03-30] MEDS: PANTOprazole SOD 40 MG TAB PO SCH (08:26)
[2017-03-30] MEDS: INSULIN ASPART 100 UNITS/ML 3 ML PEN SC SCH ×4 (08:29→21:56)
[2017-03-30] MEDS: INSULIN GLARGINE SOLOSTAR 100 UNITS/ML 3 ML PEN SQ SCH ×2 (08:30→21:58)
[2017-03-30] MEDS: LACTOBACILLUS ACIDOPHILUS (FLORANEX) TAB PO SCH ×2 (08:31→21:53)
[2017-03-30] MEDS: METOPROLOL SUCC 25MG EXT REL TAB PO SCH (08:32)
[2017-03-30] MEDS: DILTIAZEM HCL 120 MG CAPCR PO SCH (08:33)
--- NOTE | 2017-03-30 11:31 | Progress Note ---
Internal Med Progress Note Date of Service: Mar 30, 2017. Provider Documentation: SUBJECTIVE: The patient was seen and examined Complains of severe pain all over the body including toes and fingers Generalized weakness that she can not come out of bead. Lying in bed comfortably OBJECTIVE: Vital Signs-as noted below Exam: General-No distress at rest Eyes-normal ENT-normal Neck-supple Lungs-Decreased breath sound bilaterally Heart-Regular ,no murmur appreciated Abdomen-Benign,distended,soft and nontender,,no masses,bowel sound present Extremities-Trace edema bilaterally Chronic skin changes bilaterally Neuro-AAOx3 Lab data as noted below. ASSESSMENT & PLAN: Shortness of breath, -resolved -likely secondary to mild chronic obstructive pulmonary disease exacerbation. - nebulized bronchodilator,oxygen.Steroid was not prescribed - antibiotic to finish the course from recent pneumonia treatment. -Recurrent admission with SOB without any drop in Saturation -Lives alone and probably will be better off with 24 hour care placement -social service consulted for probable placement Probable Depression -may have depression and lacks motivation to do anything -Psychiatry consult requested -PT/OT Chest pain with Generalized body Pain Seems to be atypical on the right side, -has had pain before. -She had an echocardiogram done in January and that did show preserved LV function with no wall motion abnormality. -She had catheterization in August 2014 that did show moderate LAD and medical did treatment was contemplated. -She was also seen by power lineman technician during her last admission in this hospital on 16 of March and no further workup was advised. -serial cardiac enzymes -negative for any ACS -no more chast pain KARLEE on CKD Complicated by Dehydration Will hold Lasix and Metolazone Gentle amount of IVF Monitor Renal function-improving Start Lasix from tomorrow Diabetes type 2. Continue with her current insulin doses and put her on sliding scale coverage in the hospital. Hypertension. Continue current medications. Gastrointestinal prophylaxis with PPI. Deep venous thrombosis prophylaxis, has been on Coumadin. Hyperlipidemia. Continue with statin. CODE STATUS. SHE WILL BE A FULL CODE. Transfer to [facility] service for possible placement Vital Signs: Date Time Temp Pulse Resp B/P (MAP) Pulse Ox O2 Delivery O2 Flow Rate FiO2 03/30/17 08:00 Room Air 03/30/17 06:55 36.4 58 19 143/65 (91) 100 Room Air 03/30/17 04:00 Room Air 03/30/17 04:00 36.3 63 22 137/56 (83) 100 Room Air 03/30/17 00:00 Room Air 03/29/17 23:10 36.8 64 20 156/68 (97) 95 Room Air 03/29/17 20:00 Room Air 03/29/17 19:10 36.6 64 16 125/57 (79) 98 Room Air 03/29/17 16:00 Room Air 03/29/17 15:50 36.4 66 19 149/68 (95) 100 Room Air 03/29/17 12:00 Room Air 03/29/17 11:31 36.6 69 19 134/64 (87) 98 Room Air Lab Results: Results Past 24 Hours Test 03/29/17 12:18 03/29/17 15:15 03/29/17 16:26 03/29/17 20:11 Range/Units Total Creatine Kinase 55 26-192 U/L Creatine Kinase MB 0.6 0.5-3.6 ng/ml Creatine Kinase MB Ratio 1.1 0-3.0 Troponin I < 0.015 0-0.045 ng/ml Prothrombin Time 23.9 9.0-12.0 SECONDS Prothromb Time International Ratio 2.2 0.9-1.1 Bedside Glucose 151 146 70-90 mg/dl Test 03/30/17 01:34 03/30/17 04:14 03/30/17 06:04 03/30/17 06:34 Range/Units Bedside Glucose 86 131 118 70-90 mg/dl White Blood Count 3.20 4.8-10.8 K/uL Red Blood Count 3.42 4.2-5.4 M/uL Hemoglobin 10.5 12.0-16.0 g/dL Hematocrit 31.8 37-47 % Mean Corpuscular Volume 93.0 80-100 fL Mean Corpuscular Hemoglobin 30.7 25-34 pg Mean Corpuscular Hemoglobin Concent 33.0 32-36 g/dl RDW Standard Deviation 47.8 36.4-46.3 fL RDW Coefficient of Variation 14.2 11.5-14.5 % Platelet Count 85 130-400 K/uL Mean Platelet Volume 10.7 7.4-10.4 fL Prothrombin Time 24.4 9.0-12.0 SECONDS Prothromb Time International Ratio 2.2 0.9-1.1 Sodium Level 144 136-145 mmol/L Potassium Level 3.8 3.5-5.1 mmol/L Chloride Level 109 98-107 mmol/L Carbon Dioxide Level 29 21-32 mmol/L Anion Gap 6.0 3-11 mmol/L Blood Urea Nitrogen 42 7-18 mg/dl Creatinine 2.10 0.60-1.20 mg/dl Est Creatinine Clear Calc Drug Dose 26.3 ml/min Estimated GFR () 25.3 Estimated GFR (Non- 21.8 BUN/Creatinine Ratio 20.1 10-20 Random Glucose 120 70-99 mg/dl Calcium Level 9.3 8.5-10.1 mg/dl
[2017-03-30] MEDS: LEVOFLOXACIN 750 MG TAB PO SCH (11:36)
--- NOTE | 2017-03-30 13:19 | Psychiatric Progress Notes ---
Psychiatric Progress Note Date of Service Mar 30, 2017. Notes 77-year-old female with no psychiatric history but multiple medical admissions, currently admitted for chest pain and COPD exacerbation, and psychiatry consulted for a question of depression. Chief complaint: "This is just my third time in here in 2 weeks, and I'm just a little concerned." The patient is well-known to us from a recent consultation on 03/24/2017, also for depression. At that time she denied all depressive symptoms, and although she reported some worries about her medical problems, she did not meet criteria for an anxiety disorder, and was not interested in outpatient treatment. She was discharged March 26, 2017, and repeat presented 2 days later with shortness of breath and generalized body pain. She is receiving treatment for a COPD exacerbation and is completing a course of antibiotics for pneumonia. She had a cardiac workup during her most recent admission, and has had negative serial cardiac enzymes. She is also receiving treatment for acute on chronic kidney injury. On my assessment, the patient states that she is fearful of what might be causing her medical problems, and is frustrated with repeated admissions. She states that she came into the hospital because "my whole body hurts" and she had a pain in her toe. As during her assessment last week, the patient denies all symptoms of depression, stating that her mood is "usually pretty good ," and she denies feeling down, having crying spells, sleep impairment, anhedonia, poor concentration, and suicidal thoughts. She does admit to "a little bit" of anxiety, which she feels is triggered by ongoing medical problems and not knowing what is causing them. She denies chronic anxiety, and denies that her current anxiety is interfering with her ability to function or live her life. She states she is not really sure what testing is being done or what the possible causes of her pain are, and states her primary concern is her pain and what might be causing it. She has good support from friends and family , and states she is "looking forward to being 78." She denies the need for any psychiatric treatment. ROS: Positive for whole body pain, others negative except as stated above. Well nourished, well developed WF appearing stated age. Wearing a hospital gown and adequately groomed. Calm and cooperative. Lying in bed in NAD, with fair eye contact and no abnormal movements. Speech is normal rate, volume, and tone. Mood is "pretty good," and affect is stable and congruent. Thoughts are linear, logical and goal directed. The patient denied suicidal and homicidal ideation, paranoia, delusions, and hallucinations, and did not appear to be responding to internal stimuli. Cognition was grossly intact. Alert and oriented to person, place and time. Intelligence is consistent with level of education. Insight and and judgment are good. Diagnosis: Adjustment disorder with anxiety. Recommendations: 1. The patient has denied all symptoms of depression on two separate psychiatric consults in the past 7 days, and although she does report some anxiety stemming from her recent hospitalizations and medical problems, she denies chronic anxiety and does not meet criteria for an anxiety disorder. She thinks her anxiety would be relieved by a better understanding of what might be causing her pain and the proposed workup and treatment options, and encouraged her to talk to her primary attending about this. She was advised that if her anxiety symptoms worsen or she gets to the point where she would like to talk about treatment options for the anxiety, that we would be happy to see her again.
[2017-03-30 15:19] LABS: INR 2.3 (0.9-1.1); PROTHROMBIN TIME (PATIENT) 25.8 SECONDS (9.0-12.0)
[2017-03-30] MEDS ORDERED: WARFARIN SOD 2 MG TAB PO SCH (16:00)
[2017-03-30] MEDS: LOVASTATIN 20 MG TAB PO SCH (21:54)
[2017-03-31 07:28] VITALS: BP 146/69; PULSE 77; TEMP 36.3; O2SAT 98
[2017-03-31 07:33] LABS: INR 2.2 (0.9-1.1); PROTHROMBIN TIME (PATIENT) 24.5 SECONDS (9.0-12.0)
[2017-03-31] MEDS: FERROUS SULFATE 325 MG TAB PO SCH (07:37)
[2017-03-31] MEDS: DILTIAZEM HCL 120 MG CAPCR PO SCH (07:37)
[2017-03-31] MEDS: LOSARTAN POTASSIUM 50 MG TAB PO SCH (07:37)
[2017-03-31] MEDS: LACTOBACILLUS ACIDOPHILUS (FLORANEX) TAB PO SCH ×2 (07:38→21:27)
[2017-03-31] MEDS: CALCITRIOL 0.25 MCG CAP PO SCH (07:38)
[2017-03-31] MEDS: METOPROLOL SUCC 25MG EXT REL TAB PO SCH (07:38)
[2017-03-31] MEDS: PANTOprazole SOD 40 MG TAB PO SCH (07:38)
[2017-03-31] MEDS: ISOSORBIDE MONONITRATE 60 MG TABCR PO SCH (07:38)
[2017-03-31] MEDS: INSULIN GLARGINE SOLOSTAR 100 UNITS/ML 3 ML PEN SQ SCH ×2 (07:47→21:36)
[2017-03-31] MEDS: INSULIN ASPART 100 UNITS/ML 3 ML PEN SC SCH ×4 (07:47→21:37)
[2017-03-31 11:51] LABS: BUN/CREATININE RATIO 20.3 (10-20); CREATININE 1.9 mg/dl (0.60-1.20)
[2017-03-31 15:22] VITALS: BP 159/59; PULSE 62; TEMP 36.6; O2SAT 100
[2017-03-31] MEDS: WARFARIN SOD 4 MG TAB PO SCH (15:36)
[2017-03-31 16:00] VITALS: O2SAT 100
[2017-03-31 16:14] LABS: INR 2.2 (0.9-1.1); PROTHROMBIN TIME (PATIENT) 23.9 SECONDS (9.0-12.0)
--- NOTE | 2017-03-31 17:10 | Progress Note ---
Internal Med Progress Note Date of Service: Mar 31, 2017. Provider Documentation: SUBJECTIVE: sitting on the chair comfortably afebrile says sob is much better no chest pain not coughing much ambulated in room with walker ok for short term placement OBJECTIVE: Vital Signs-as noted below Exam: General-alert and oriented. Not in distress ENT-Normal hearing Neck-no neck masses supple Lungs-cta b/l no wheezing no crackles present Heart-s1 and s2 heard regular rate and rhythm no murmurs Abdomen-soft bowel sounds present non tender no distension Extremities-lower extremity edema present no erythema Neuro-alert and oriented moves extremities Lab data as noted below. ASSESSMENT & PLAN: Shortness of breath, -resolved most likely mild copd exacerbation recent admission for pneumonia to complete po abx nebs stable Probable Depression seen by psychiatry and appreciate inputs. Chest pain with Generalized body Pain She had an echocardiogram done in January and that did show preserved LV function with no wall motion abnormality. s/p cardiac catheterization in August 2014 that did show moderate LAD and medical did treatment was contemplated. Seen by valance cutter in this hospital on 16 of March and no further workup was advised. currently stable KARLEE on CKD Complicated by Dehydration Will hold Lasix and Metolazone Gentle amount of IVF Monitor Renal function-improving Will Start Lasix from tomorrow Diabetes type 2. On Lantus and ISS will monitor. Hypertension. Continue current medications. Gastrointestinal prophylaxis with PPI. Deep venous thrombosis prophylaxis, has been on Coumadin.INR 2.2 Hyperlipidemia. Continue with statin. CODE STATUS. FULL CODE. DISPOSITION pt/ot plan for short term placement social service for d/c planning Vital Signs: Date Time Temp Pulse Resp B/P (MAP) Pulse Ox O2 Delivery O2 Flow Rate FiO2 03/31/17 16:00 100 Room Air 03/31/17 15:22 36.6 62 18 159/59 (92) 100 Room Air 03/31/17 08:34 Room Air 03/31/17 07:28 36.3 77 20 146/69 (94) 98 Room Air 03/31/17 00:30 Room Air 03/30/17 23:13 36.5 64 18 145/73 (97) 100 Room Air Lab Results: Results Past 24 Hours Test 03/30/17 19:51 03/31/17 02:44 03/31/17 07:00 8/1/17 07:18 Range/Units Bedside Glucose 187 122 127 70-90 mg/dl Prothrombin Time 24.5 9.0-12.0 SECONDS Prothromb Time International Ratio 2.2 0.9-1.1 Test 03/31/17 11:07 03/31/17 11:10 03/31/17 15:20 03/31/17 16:21 Range/Units Bedside Glucose 157 153 70-90 mg/dl Sodium Level 140 136-145 mmol/L Potassium Level 4.0 3.5-5.1 mmol/L Chloride Level 105 98-107 mmol/L Carbon Dioxide Level 28 21-32 mmol/L Anion Gap 7.0 3-11 mmol/L Blood Urea Nitrogen 39 7-18 mg/dl Creatinine 1.90 0.60-1.20 mg/dl Est Creatinine Clear Calc Drug Dose 29.0 ml/min Estimated GFR () 28.6 Estimated GFR (Non- 24.6 BUN/Creatinine Ratio 20.3 10-20 Random Glucose 155 70-99 mg/dl Calcium Level 10.0 8.5-10.1 mg/dl Prothrombin Time 23.9 9.0-12.0 SECONDS Prothromb Time International Ratio 2.2 0.9-1.1
[2017-03-31] MEDS: LOVASTATIN 20 MG TAB PO SCH (21:28)
[2017-03-31 23:45] VITALS: BP 126/48; PULSE 62; TEMP 36.4; O2SAT 99
[2017-04-01 07:28] VITALS: BP 153/71; PULSE 74; TEMP 36.8; O2SAT 94
[2017-04-01] MEDS: DILTIAZEM HCL 120 MG CAPCR PO SCH (07:30)
[2017-04-01] MEDS: LOSARTAN POTASSIUM 50 MG TAB PO SCH (07:31)
[2017-04-01] MEDS: FERROUS SULFATE 325 MG TAB PO SCH (07:31)
[2017-04-01] MEDS: PANTOprazole SOD 40 MG TAB PO SCH (07:31)
[2017-04-01] MEDS: ISOSORBIDE MONONITRATE 60 MG TABCR PO SCH (07:31)
[2017-04-01] MEDS: LACTOBACILLUS ACIDOPHILUS (FLORANEX) TAB PO SCH (07:31)
[2017-04-01] MEDS: METOPROLOL SUCC 25MG EXT REL TAB PO SCH (07:32)
[2017-04-01] MEDS: CALCITRIOL 0.25 MCG CAP PO SCH (07:32)
[2017-04-01] MEDS: INSULIN GLARGINE SOLOSTAR 100 UNITS/ML 3 ML PEN SQ SCH (07:35)
[2017-04-01 08:15] LABS: BUN/CREATININE RATIO 22.6 (10-20); CALCIUM 9.7 mg/dl (8.5-10.1); MAGNESIUM 2.2 mg/dl (1.8-2.4); POTASSIUM 3.8 mmol/L (3.5-5.1)
[2017-04-01 08:25] LABS: HEMATOCRIT 34.8 % (37-47); MEAN CELL VOLUME 92.1 fL (80-100); MEAN CORPUSCULAR HEMOGLOBIN 30.4 pg (25-34); RED BLOOD COUNT 3.78 M/uL (4.2-5.4); WHITE BLOOD COUNT 3.83 K/uL (4.8-10.8)
[2017-04-01 08:31] LABS: MEAN PLATELET VOLUME 10.9 fL (7.4-10.4); PLATELET COUNT 92 K/uL (130-400)
[2017-04-01] MEDS: INSULIN ASPART 100 UNITS/ML 3 ML PEN SC SCH ×2 (08:34→12:12)
[2017-04-01 08:49] LABS: COMPLETE YES; EOS % 3.1 %; IG% 0.3 %; LYMPH % 39.9 %; LYMPH ABS # 1.53 K/uL (1.2-3.4); MONO % 8.1 %; NEUT % 48.6 %
[2017-04-01] MEDS: LEVOFLOXACIN 750 MG TAB PO SCH (11:37)
[2017-04-01] MEDS: ACETAMINOPHEN 325 MG TAB PO PRN (13:35)
--- NOTE | 2017-04-01 14:53 | Discharge Instructions ---
Discharge Instructions Date of Service Apr 01, 2017. Admission Reason for Admission: Atypical Chest Pain,Copd Exacerbation,Sob Discharge Discharge Diagnosis / Problem: copd ex mild, sob Discharge Goals Goal(s): Decrease discomfort, Improve function Activity Recommendations Activity Limitations: resume your previous activity . Instructions / Follow-Up Instructions / Follow-Up FOLLOWUP WITH FAMILY DOCTOR ON March AT 1:45PM LAB: BMP IN ONE WEEK AND FOLLOW RESULTS WITH FAMILY DOCTOR. FOLLOWUP WITH COUMADIN CLINIC FOR COUMADIN DOSING Current Hospital Diet Patient's current hospital diet: Low Sodium Diet (2gm Na), AHA Diet (Heart Healthy) Discharge Diet Recommended Diet: AHA Diet (Heart Healthy), Low Sodium Diet (2gm Na) Pending Studies Studies pending at discharge: no Laboratory Results Hemoglobin A1c Test 03/14/17 02:15 Range/Units Estimated Average Glucose 160 mg/dl Hemoglobin A1c 7.2 H 4.5-5.6 % Medical Emergencies . Who to Call and When: Medical Emergencies: If at any time you feel your situation is an emergency, please call 911 immediately. . Non-Emergent Contact Non-Emergency issues call your: Primary Care Provider . . "Provider Documentation" section prepared by Surjit Carvalho. . VTE Core Measure Inpt VTE Proph given/why not?: Warfarin (Coumadin)
[2017-04-01 14:59] VITALS: BP 153/71; PULSE 74; TEMP 36.8; O2SAT 94
[2017-04-01] MEDS ORDERED: FUROSEMIDE 40 MG TAB PO SCH (17:00)
--- NOTE | 2017-04-01 18:17 | Progress Note ---
Internal Med Progress Note Date of Service: Apr 01, 2017. Provider Documentation: SUBJECTIVE: sitting on the chair comfortably ambulating fine moved bowels no chest pain or sob ok to go home with home health OBJECTIVE: Vital Signs-as noted below Exam: General-alert and oriented. Not in distress ENT-Normal hearing Neck-no neck masses supple Lungs-cta b/l no wheezing no crackles present Heart-s1 and s2 heard regular rate and rhythm no murmurs Abdomen-soft bowel sounds present non tender no distension Extremities-lower extremity edema present no erythema Neuro-alert and oriented moves extremities Lab data as noted below. ASSESSMENT & PLAN: Shortness of breath, -resolved most likely mild copd exacerbation recent admission for pneumonia to complete po abx nebs stable f/u with pcp Probable Depression seen by psychiatry and appreciate inputs. Chest pain with Generalized body Pain She had an echocardiogram done in January and that did show preserved LV function with no wall motion abnormality. s/p cardiac catheterization in August 2014 that did show moderate LAD and medical did treatment was contemplated. Seen by caterers helper in this hospital on 16 of March and no further workup was advised. currently stable KARLEE on CKD Complicated by Dehydration Held Lasix and Metolazone Gentle amount of IVF Monitor Renal function-improving cr 2.0 at discharge restarted home diuretics on discharge f/u labs with pcp in one week Diabetes type 2. On Lantus and ISS will monitor. Hypertension. Continue current medications. Gastrointestinal prophylaxis with PPI. Discharged home with home health Vital Signs: Date Time Temp Pulse Resp B/P (MAP) Pulse Ox O2 Delivery O2 Flow Rate FiO2 04/01/17 14:59 36.8 74 16 94 Room Air 04/01/17 11:38 Room Air 04/01/17 07:28 36.8 74 16 153/71 (98) 94 Room Air 04/01/17 00:15 Room Air 03/31/17 23:45 36.4 62 18 126/48 (74) 99 Room Air Lab Results: Results Past 24 Hours Test 03/31/17 21:22 04/01/17 07:26 04/01/17 07:28 04/01/17 11:19 Range/Units Bedside Glucose 185 137 163 70-90 mg/dl White Blood Count 3.83 4.8-10.8 K/uL Red Blood Count 3.78 4.2-5.4 M/uL Hemoglobin 11.5 12.0-16.0 g/dL Hematocrit 34.8 37-47 % Mean Corpuscular Volume 92.1 80-100 fL Mean Corpuscular Hemoglobin 30.4 25-34 pg Mean Corpuscular Hemoglobin Concent 33.0 32-36 g/dl Platelet Count 92 130-400 K/uL Mean Platelet Volume 10.9 7.4-10.4 fL Neutrophils (%) (Auto) 48.6 % Lymphocytes (%) (Auto) 39.9 % Monocytes (%) (Auto) 8.1 % Eosinophils (%) (Auto) 3.1 % Basophils (%) (Auto) 0.0 % Neutrophils # (Auto) 1.86 1.4-6.5 K/uL Lymphocytes # (Auto) 1.53 1.2-3.4 K/uL Monocytes # (Auto) 0.31 0.11-0.59 K/uL Eosinophils # (Auto) 0.12 0-0.5 K/uL Basophils # (Auto) 0.00 0-0.2 K/uL RDW Standard Deviation 47.8 36.4-46.3 fL RDW Coefficient of Variation 14.2 11.5-14.5 % Immature Granulocyte % (Auto) 0.3 % Immature Granulocyte # (Auto) 0.01 0.00-0.02 K/uL Sodium Level 141 136-145 mmol/L Potassium Level 3.8 3.5-5.1 mmol/L Chloride Level 106 98-107 mmol/L Carbon Dioxide Level 30 21-32 mmol/L Anion Gap 5.0 3-11 mmol/L Blood Urea Nitrogen 45 7-18 mg/dl Creatinine 2.00 0.60-1.20 mg/dl Est Creatinine Clear Calc Drug Dose 27.6 ml/min Estimated GFR () 26.8 Estimated GFR (Non- 23.2 BUN/Creatinine Ratio 22.6 10-20 Random Glucose 136 70-99 mg/dl Calcium Level 9.7 8.5-10.1 mg/dl Magnesium Level 2.2 1.8-2.4 mg/dl
--- NOTE | 2017-04-01 18:24 | Discharge Summary ---
Discharge Summary Date of Service Apr 01, 2017. Discharge Summary Admission Date: Mar 28, 2017 at 11:54 Discharge Date: Apr 01, 2017 Discharge Disposition: Home with services Principal Diagnosis: SOB MILD COPD EX KARLEE Secondary Diagnoses/Problems: chronic ischemic heart disease, paroxysmal atrial fibrillation on anticoagulation, COPD, diabetes with polyneuropathy, hypertension, hyperlipidemia, obesity Procedures: CXR: No acute cardiopulmonary findings. No change in appearance of the chest. Consultations: PSYCHIATRY Medication Reconciliation Continued Medications: Benzonatate (Benzonatate) 100 Mg Cap 100 MG PO TID PRN for Cough for 5 Days, CAP Calcitriol (Rocaltrol) 0.5 Mcg Cap 0.5 MCG PO DAILY Diltiazem Hcl Coated Beads (Diltiazem Hcl Er) 120 Mg Cap 120 MG PO DAILY Ferrous Sulfate (Ferrous Sulfate) 325 Mg Tab 325 MG PO DAILY Furosemide (Lasix) 40 Mg Tab 1 TAB PO BID for 30 Days, #60 TAB 5 Refills Glucose-Vitamin C (Glucose) 1 Chw Chw 1 TAB PO UD PRN for LOW SUGAR Home O2 Therapy (Oxygen) Gas LITERS NA QPM Insulin Aspart (Novolog) 100 Units/Ml Inj ACHS SLIDING SCALE Insulin Glargine (Lantus) 100 Unit/Ml Inj 25 UNITS SQ QAM, VIAL Insulin Glargine (Lantus) 100 Unit/Ml Inj 11 UNITS SQ EVENING MEAL, VIAL Isosorbide Mononitrate (Isosorbide Mononitrate ER) 60 Mg Tab 60 MG PO DAILY Lactobacillus Acidophilus (Lactinex) Tab 2 TAB PO BID, #30 TAB Levalbuterol Hcl (Levalbuterol Hcl) 1.25 Mg/3 Ml Neb 3 ML INH Q4 PRN for SOB/Wheezing Losartan Potassium (Cozaar) 100 Mg Tab 100 MG PO DAILY Lovastatin (Mevacor) 40 Mg Tab 80 MG PO HS 2 TABLETS AT BEDTIME Metolazone (Zaroxolyn) 2.5 Mg Tab 2.5 MG PO WK, TAB Takes on Wednesdays Metoprolol Succinate (Metoprolol Succinate ER) 25 Mg Tabcr 12.5 MG PO DAILY, #15 Nitroglycerin (Nitrostat) 0.4 Mg Sub 0.4 MG UT PRN PRN for Chest Pain, BTL Omeprazole (Omeprazole) 20 Mg Tab 20 MG PO DAILY Solifenacin (Vesicare) 5 Mg Tab 5 MG PO DAILY, TAB Umeclidinium-Vilanterol (Anoro Ellipta 62.5-25 Mcg/INH) 1 Aer Aer 1 PUFF INH DAILY Warfarin Sod (Jantoven) 4 Mg Tab 4 MG PO 4XWK SUN, TUES, THURS, SAT Warfarin Sodium (Coumadin) 2 Mg Tab 2 MG PO 3XWK MON, WED, FRI Discontinued Medications: Levofloxacin (Levofloxacin) 750 Mg Tab 750 MG PO Q48H for 4 Days, #2 TAB Admission Information HPI (per Admitting provider): She is a 77-year-old female with significant past medical history including chronic ischemic heart disease, paroxysmal atrial fibrillation on anticoagulation, COPD, diabetes with polyneuropathy, hypertension, hyperlipidemia, obesity and apparently was in hospital recently with pneumonia. She went home day before yesterday and this morning she was trying to go to the bathroom, at that time she got very weak, tired, generalized pain all over and pain mostly in the right upper chest wall associated with some shortness of breath. She called 911 and she was brought into the hospital for further evaluation. When asking questions, she denies to have any fever, chills or rigors. Denies to have any problem with urine and/or bowel habit. She has had this kind of symptoms before and for that she was in the hospital on multiple occasions. Starting 02/09/2017 until now she has had 3 admissions to the hospital. She lives alone and her daughter actually is out of town at this time. She is very anxious and afraid to go back to her apartment. In the ER, she was still anxious and shortness of breath and apparent test came out to be negative except creatinine was slightly elevated to more than 2. From that point, she was admitted to telemetry unit for continuation of care. Hospital Course Shortness of breath, -resolved most likely mild copd exacerbation recent admission for pneumonia to complete po abx nebs stable f/u with pcp Probable Depression seen by psychiatry and appreciate inputs. Chest pain with Generalized body Pain She had an echocardiogram done in January and that did show preserved LV function with no wall motion abnormality. s/p cardiac catheterization in August 2014 that did show moderate LAD and medical did treatment was contemplated. Seen by director of home care hospice in this hospital on 16 of March and no further workup was advised. currently stable KARLEE on CKD Complicated by Dehydration Held Lasix and Metolazone Gentle amount of IVF Monitor Renal function-improving cr 2.0 at discharge restarted home diuretics on discharge f/u labs with pcp in one week Diabetes type 2. On Lantus and ISS will monitor. Hypertension. Continue current medications. Gastrointestinal prophylaxis with PPI. Discharged home with home health Total time spent on discharge = 35MINUTES This includes examination of the patient, discharge planning, medication reconciliation, and communication with other providers. Discharge Instructions Discharge Instructions Date of Service Apr 01, 2017. Admission Reason for Admission: Atypical Chest Pain,Copd Exacerbation,Sob Discharge Discharge Diagnosis / Problem: copd ex mild, sob Discharge Goals Goal(s): Decrease discomfort, Improve function Activity Recommendations Activity Limitations: resume your previous activity . Instructions / Follow-Up Instructions / Follow-Up FOLLOWUP WITH FAMILY DOCTOR ON March AT 1:45PM LAB: BMP IN ONE WEEK AND FOLLOW RESULTS WITH FAMILY DOCTOR. FOLLOWUP WITH COUMADIN CLINIC FOR COUMADIN DOSING Current Hospital Diet Patient's current hospital diet: Low Sodium Diet (2gm Na), AHA Diet (Heart Healthy) Discharge Diet Recommended Diet: AHA Diet (Heart Healthy), Low Sodium Diet (2gm Na) Pending Studies Studies pending at discharge: no Laboratory Results Hemoglobin A1c Test 03/14/17 02:15 Range/Units Estimated Average Glucose 160 mg/dl Hemoglobin A1c 7.2 H 4.5-5.6 % Medical Emergencies . Who to Call and When: Medical Emergencies: If at any time you feel your situation is an emergency, please call 911 immediately. . Non-Emergent Contact Non-Emergency issues call your: Primary Care Provider . . "Provider Documentation" section prepared by Surjit Carvalho. . VTE Core Measure Inpt VTE Proph given/why not?: Warfarin (Coumadin)
== END 2017-04-01 15:58 | disposition home health service (06) ==
LOC: EDBD 10:01 → C.EDA 10:01 → C.2T 11:54 → ENRESERV 12:36 → C.MS2W 03-30 13:35
PROVIDERS: ADMIT Internal Medicine; ATTEND Internal Medicine
DX: J44.1 Chronic obstructive pulmonary disease with (acute) exacerbation (principal); N17.9 Acute kidney failure, unspecified; I12.9 Hypertensive chronic kidney disease with stage 1 through stage 4 chronic kidney disease, or unspecified chronic kidney disease; F43.22 Adjustment disorder with anxiety; E11.42 Type 2 diabetes mellitus with diabetic polyneuropathy; J18.9 Pneumonia, unspecified organism; E86.0 Dehydration; I25.9 Chronic ischemic heart disease, unspecified; K31.84 Gastroparesis; R52 Pain, unspecified; I48.0 Paroxysmal atrial fibrillation; I25.10 Atherosclerotic heart disease of native coronary artery without angina pectoris; E78.5 Hyperlipidemia, unspecified; Z86.73 Personal history of transient ischemic attack (TIA), and cerebral infarction without residual deficits; Z87.891 Personal history of nicotine dependence; Z79.4 Long term (current) use of insulin; Z79.01 Long term (current) use of anticoagulants; Z79.899 Other long term (current) drug therapy; Z99.81 Dependence on supplemental oxygen

== ENCOUNTER → 2017-05-05 | Outpatient (CLI) | payer OTHER ==
[~2017-05-05] MED LIST changes: +FLUT1INH3 INH; -LVQ750 PO; +PLMINS NEB
--- NOTE | 2017-05-05 10:42 | DIAGNOSTIC IMAGING REPORT ---
CHEST 2 VIEWS ROUTINE CLINICAL HISTORY: Cough. Shortness of breath. COMPARISON STUDY: Chest radiograph March 28, 2017. FINDINGS: There is no pneumothorax or pleural effusion. Cardiomegaly is unchanged. There is no evidence of pulmonary edema. A 9 mm right upper lobe nodule is unchanged from earlier studies. This is benign given stability. The appearance of the chest is unchanged. IMPRESSION: No acute cardiopulmonary findings. Electronically signed by: Christophe Cagle M.D. 05/05/2017 10:41 AM Dictated Date/Time: 05/05/2017 10:34 AM
[2017-05-05 12:24] LABS: BASO % 0.2 %; BASO ABS # 0.01 K/uL (0-0.2); COMPLETE YES; EOS % 1.3 %; HEMATOCRIT 32.5 % (37-47); IG% 0.4 %; LYMPH % 24.2 %; MEAN CELL VOLUME 92.9 fL (80-100); MEAN CORPUSCULAR HGB CONC 34.5 g/dl (32-36); MEAN PLATELET VOLUME 10.7 fL (7.4-10.4); NEUT % 64.9 %; PLATELET COUNT 124 K/uL (130-400); WHITE BLOOD COUNT 4.54 K/uL (4.8-10.8)
[2017-05-05 13:23] LABS: BLOOD UREA NITROGEN 37 mg/dl (7-18); BUN/CREATININE RATIO 18.6 (10-20); CALCIUM 9.4 mg/dl (8.5-10.1); CARBON DIOXIDE 31 mmol/L (21-32); CHLORIDE 101 mmol/L (98-107); GLUCOSE 258 mg/dl (70-99); POTASSIUM 3.7 mmol/L (3.5-5.1); SODIUM 140 mmol/L (136-145)
== END | disposition home or self-care (01) ==
LOC: C.RAD1850 10:08
PROVIDERS: ATTEND Physician Assistant
DX: R06.02 Shortness of breath (principal); R05 Cough

== ENCOUNTER 2017-05-10 11:50 | Inpatient (IN) | payer OTHER ==
[~2017-05-10] VITALS: Ht 165.1 cm; Wt 108.8 kg
[~2017-05-10 11:50] MED LIST changes: -FLUT1INH3 INH; -PLMINS NEB
--- NOTE | 2017-05-10 13:11 | DIAGNOSTIC IMAGING REPORT ---
CHEST ONE VIEW PORTABLE CLINICAL HISTORY: chest pain dyspnea COMPARISON STUDY: 05/05/2017 FINDINGS: Mild stable cardiomegaly. Diaphragms smooth. Slight chronic blunting left lateral costophrenic angle. Unchanging nodular density right upper lung. Slight increase in pulmonary vasculature. IMPRESSION: Early pulmonary vascular congestion. Moderate stable cardiomegaly. The above report was generated using voice recognition software. It may contain grammatical, syntax or spelling errors. Electronically signed by: Jaleel Xie M.D. 05/10/2017 1:10 PM Dictated Date/Time: 05/10/2017 1:09 PM
[2017-05-10] MEDS ORDERED: NITROGLYCERIN OINT 2% 1GM PACKET EXT ONE (13:15)
[2017-05-10] MEDS ORDERED: FLUT1INH3 INH (13:19)
[2017-05-10] MEDS ORDERED: PLMINS NEB (13:19)
[2017-05-10 13:33] LABS: ALKALINE PHOSPHATASE 107 U/L (45-117); ALT/SGPT 21 U/L (12-78); BLOOD UREA NITROGEN 42 mg/dl (7-18); BUN/CREATININE RATIO 18.1 (10-20); CALCIUM 9.3 mg/dl (8.5-10.1); CARBON DIOXIDE 32 mmol/L (21-32); CHLORIDE 99 mmol/L (98-107); GLUCOSE 192 mg/dl (70-99); SODIUM 139 mmol/L (136-145)
[2017-05-10 13:47] LABS: MEAN CELL VOLUME 92.2 fL (80-100); MEAN CORPUSCULAR HEMOGLOBIN 30.8 pg (25-34); MEAN CORPUSCULAR HGB CONC 33.4 g/dl (32-36); PLATELET COUNT 136 K/uL (130-400); RED BLOOD COUNT 3.47 M/uL (4.2-5.4); WHITE BLOOD COUNT 5.21 K/uL (4.8-10.8)
[2017-05-10 14:06] LABS: POTASSIUM 3.3 mmol/L (3.5-5.1)
[2017-05-10 14:08] LABS: INR 2.2 (0.9-1.1); PARTIAL THROMBOPLASTIN RATIO 1.2; PROTHROMBIN TIME (PATIENT) 24.1 SECONDS (9.0-12.0)
[2017-05-10 15:25] VITALS: O2SAT 98; Ht 165.1 cm; Wt 108.8 kg
--- NOTE | 2017-05-10 15:51 | EMERGENCY ROOM VISIT NOTE ---
History Report prepared by Natalya: Melinda Osorio Under the Supervision of: Dr. Jose Rafael Hernandez M.D. First contact with patient: 12:48 Chief Complaint: CHEST PAIN Stated Complaint: CHEST PAIN Nursing Triage Summary: Patient arrived via ALS from [facility]. Patient had sudden onset substernal, left sided and mediastinal chest pain with SOB. Patient states it felt like an achiness. Patient states pain was so strong it made her "fall over". Denies syncope, head trauma or LOC. Patient was placed on 15L NRB by medics SAT 100%. Patient given nitro x1 en route, with resolution of chest pain. Patient SAT on RA 100% upon arrival to ER. Hx of stents, HTN, DM. History of Present Illness The patient is a 77 year old female who presents to the Emergency Room with complaints of sudden chest pain today, which she rates at a 10/10. The patient states that she was at [facility] and began not to fell well. The patient received nitroglycerin and albuterol and is feeling better. The patient states that the chest pain started on the right side near her breast and that it moved into the middle. The pain also radiated to her back. The patient states that she felt short of breath and was diaphoretic. The patient reports having a history of a myocardial infarction and also had pneumonia in February. The patient reports being on Coumadin and has a history of blood clots. Pt denies LOC, headache, fevers, chills, visual changes, neck pain, nausea, vomiting, abdominal pain, melena, hematochezia, urinary symptoms, numbness, lymphadenopathy, rash, or other complaints. Source of History: patient Onset: today Position: chest, back Symptom Intensity: rated at a 10/10 Timing: other (sudden ) Associated Symptoms: + diaphoresis, + SOB, No fevers Review of Systems See HPI for pertinent positives and negatives. A total of ten systems were reviewed and were otherwise negative. Past Medical & Surgical Medical Problems: (1) KARLEE (acute kidney injury) (2) Asthma (3) Atrial fibrillation (4) Atypical chest pain (5) C. difficile colitis (6) Chronic anticoagulation (7) Chronic kidney disease (8) COPD (chronic obstructive pulmonary disease) (9) COPD exacerbation (10) CVA (cerebral vascular accident) (11) Diabetes mellitus, type II (12) Diabetic neuropathy (13) Diabetic peripheral neuropathy associated with type 2 diabetes mellitus (14) Gastroparesis (15) GERD (gastroesophageal reflux disease) (16) History of coronary artery disease (17) History of GI bleed (18) Hyperlipidemia (19) Hypertension (20) Migraine (21) mood disorder related to medical conditions (22) Pulmonary embolism (23) Sleep apnea (24) SOB (shortness of breath) Surgical Problems: (1) H/O heart artery stent (2) History of appendectomy (3) History of total left hip arthroplasty (4) Hx of removal of ovary Family History FH: cancer MOTHER (cervical) BROTHER (skin, testicular) Social History Smoking Status: Former Smoker Alcohol Use: none Marital Status: Housing Status: lives alone Occupation Status: retired Current/Historical Medications Scheduled Budesonide (Inhalation) (Pulmicort Respules 0.5MG/2ML), 1 VIAL NEB DAILY Calcitriol (Rocaltrol), 0.5 MCG PO DAILY Diltiazem Hcl Coated Beads (Diltiazem Hcl Er), 120 MG PO DAILY Ferrous Sulfate (Ferrous Sulfate), 325 MG PO DAILY Fluticasone Furoate (Inhalatio (Arnuity Ellipta), 1 PUFF INH DAILY Furosemide (Lasix), 1 TAB PO BID Home O2 Therapy (Oxygen), 3.5 LITERS NA HS Insulin Aspart (Novolog), ACHS Insulin Glargine (Lantus), 25 UNITS SQ QAM Insulin Glargine (Lantus), 11 UNITS SQ EVENING MEAL Isosorbide Mononitrate (Isosorbide Mononitrate ER), 60 MG PO DAILY Losartan Potassium (Cozaar), 100 MG PO DAILY Lovastatin (Mevacor), 80 MG PO HS Metolazone (Zaroxolyn), 2.5 MG PO WK Metoprolol Succinate (Metoprolol Succinate ER), 12.5 MG PO DAILY Omeprazole (Omeprazole), 20 MG PO DAILY Solifenacin (Vesicare), 5 MG PO DAILY Warfarin Sod (Jantoven), 4 MG PO 5XWK Warfarin Sodium (Coumadin), 2 MG PO 2XWK Scheduled PRN Benzonatate (Benzonatate), 100 MG PO TID PRN for Cough Glucose-Vitamin C (Glucose), 1 TAB PO UD PRN for LOW SUGAR Levalbuterol Hcl (Levalbuterol Hcl), 3 ML INH Q4 PRN for SOB/Wheezing Nitroglycerin (Nitrostat), 0.4 MG UT PRN PRN for Chest Pain Allergies Coded Allergies: Codeine (Verified Allergy, Unknown, UNKNOWN, 05/10/17) INFO FROM PT Aspirin (Verified Adverse Reaction, Intermediate, (ULCER), 05/10/17) Venlafaxine (Verified Adverse Reaction, Intermediate, DROWINESS/ CONFUSION , 05/10/17) Cephalexin (Verified Adverse Reaction, Mild, DROWSINESS, UNABLE TO DRIVE, UPSET STOMACH, 05/10/17) Oxycodone (Verified Adverse Reaction, Mild, n/v, 05/10/17) gmg Physical Exam Vital Signs Date Time Temp Pulse Resp B/P (MAP) Pulse Ox O2 Delivery O2 Flow Rate FiO2 05/10/17 15:40 74 16 130/89 100 Room Air 05/10/17 15:25 98 Room Air 05/10/17 13:21 75 18 166/65 98 Room Air 05/10/17 12:04 68 05/10/17 12:00 100 Room Air 05/10/17 12:00 100 Room Air 05/10/17 12:00 36.8 69 20 176/59 100 Room Air Physical Exam GENERAL: Awake, alert, tired-appearing, in no distress HENT: Normocephalic, atraumatic. Oropharynx unremarkable. EYES: Normal conjunctiva. Sclera non-icteric. NECK: Supple. No nuchal rigidity. FROM. No JVD. RESPIRATORY: Clear to auscultation. CARDIAC: Regular rate, normal rhythm. Extremities warm and well perfused. Pulses equal. ABDOMEN: Soft, non-distended. No tenderness to palpation. No rebound or guarding. No masses. RECTAL: Deferred. MUSCULOSKELETAL: Mild right anterior chest wall tenderness but not producing the same type of pain as earlier. The back is symmetrical on inspection without obvious abnormality. There is no CVA tenderness to palpation. No joint edema. LOWER EXTREMITIES: Calves are equal size bilaterally and non-tender. No edema. No discoloration. 2+ edema. Chronic venous discoloration. NEURO: Normal sensorium. No sensory or motor deficits noted. SKIN: No rash or jaundice noted. Medical Decision & Procedures ER Provider Diagnostic Interpretation: X-ray: Per my interpretation, radiologist review. CHEST ONE VIEW PORTABLE CLINICAL HISTORY: chest pain dyspnea COMPARISON STUDY: 05/05/2017 FINDINGS: Mild stable cardiomegaly. Diaphragms smooth. Slight chronic blunting left lateral costophrenic angle. Unchanging nodular density right upper lung. Slight increase in pulmonary vasculature. IMPRESSION: Early pulmonary vascular congestion. Moderate stable cardiomegaly. The above report was generated using voice recognition software. It may contain grammatical, syntax or spelling errors. Electronically signed by: Jaleel Xie M.D. 05/10/2017 1:10 PM Dictated Date/Time: 05/10/2017 1:09 PM Laboratory Results 05/10/17 12:15 05/10/17 12:15 05/10/17 13:22 Test 05/10/17 12:15 05/10/17 12:43 05/10/17 13:22 Red Blood Count 3.47 M/uL (4.2-5.4) Mean Corpuscular Volume 92.2 fL (80-100) Mean Corpuscular Hemoglobin 30.8 pg (25-34) Mean Corpuscular Hemoglobin Concent 33.4 g/dl (32-36) Anion Gap 8.0 mmol/L (3-11) Est Creatinine Clear Calc Drug Dose 24.8 ml/min Estimated GFR () 22.7 Estimated GFR (Non- 19.6 BUN/Creatinine Ratio 18.1 (10-20) Calcium Level 9.3 mg/dl (8.5-10.1) Total Bilirubin 0.6 mg/dl (0.2-1) Alanine Aminotransferase (ALT/SGPT) 21 U/L (12-78) Alkaline Phosphatase 107 U/L (45-117) Creatine Kinase MB 1.8 ng/ml (0.5-3.6) Troponin I < 0.015 ng/ml (0-0.045) Total Protein 6.6 gm/dl (6.4-8.2) Albumin 3.3 gm/dl (3.4-5.0) Globulin 3.3 gm/dl (2.5-4.0) Albumin/Globulin Ratio 1.0 (0.9-2) Creatine Kinase MB Ratio (0-3.0) Prothrombin Time 24.1 SECONDS (9.0-12.0) Prothromb Time International Ratio 2.2 (0.9-1.1) Activated Partial Thromboplast Time 31.7 SECONDS (21.0-31.0) Partial Thromboplastin Ratio 1.2 Aspartate Amino Transf (AST/SGOT) 15 U/L (15-37) Total Creatine Kinase 91 U/L (26-192) Laboratory results reviewed by me Medications Administered Medications (Trade) Dose Ordered Sig/Rose Route Start Time Stop Time Status Last Admin Dose Admin Nitroglycerin (Nitroglycerin 2% Oint) 1 inch NOW ONCE EXT 05/10/17 13:15 05/10/17 13:16 DC 05/10/17 13:15 1 INCH ECG Indication: chest pain Rate (beats per minute): 56 Rhythm: normal sinus Findings: Q waves (Inferior), no acute ischemic change, no ectopy, other (poor R wave progression) ED Course 1258: The patient was evaluated in room B7. A complete history and physical exam was performed. 1315: Ordered Nitroglycerin 1 inch EXT. 1440: I reassessed the patient and she says that she is pain free. 1445: Discussed the patient's case with Dr. Bowles. The patient will be evaluated for further treatment and disposition. 1500: Upon reexamination, the patient was resting. I discussed the test results and treatment plan with her. The patient will be evaluated for further management. Medical Decision Triage Nursing notes reviewed. The patient's presentation and history were concerning for chest pain. Etiologies such as cardiac ischemia, aortic dissection, pulmonary embolism, pneumonia, pneumothorax, musculoskeletal, infections, gastrointestinal, as well as others were entertained. Patient was evaluated. She was pain-free. Nitro paste was applied. She was not given a dose of aspirin as she is allergic. The patient's ECG was unremarkable. Her CBC, chemistry panel and cardiac markers were negative. She is therapeutic on her INR. Chest x-ray did not reveal any acute findings. Given the patient's extensive cardiac history further evaluation and management in the hospital felt to be appropriate. The patient and family were in agreement. I did consult with the [facility] hospitalist service. The patient was evaluated in the Emergency Room for further management. Medication Reconcilliation Current Medication List: was personally reviewed by me Blood Pressure Screening Patient's blood pressure: Elevated blood pressure Blood pressure disposition: Referred to PCP Consults Time Called: 1400 Consulting Physician: Dr. BowlesKaren Returned Call: 1445 Discussed the patient's case. The patient will be evaluated for further treatment and disposition. Impression Primary Impression: Substernal chest pain Scribe Attestation The scribe's documentation has been prepared under my direction and personally reviewed by me in its entirety. I confirm that the note above accurately reflects all work, treatment, procedures, and medical decision making performed by me. Departure Information Dispostion Being Evaluated By Hospitalist Referrals Kerry Waterman D.O. (PCP) Patient Instructions My [facility]
[2017-05-10] MEDS ORDERED: ONDANSETRON INJ 2 MG/ML 2 ML VIAL IV PRN (16:15)
[2017-05-10] MEDS ORDERED: ACETAMINOPHEN 325 MG TAB PO PRN (16:15)
[2017-05-10] MEDS ORDERED: MoRPHine SULFATE 2 MG/ML CARP IV PRN (16:15)
[2017-05-10] MEDS ORDERED: POLYETHYLENE (MIRALAX) 17 GM PACK PO PRN (16:15)
[2017-05-10] MEDS ORDERED: LEVALBUTEROL 1.25MG/3ML NEB INH PRN (16:30)
[2017-05-10] MEDS ORDERED: GLUCOSE 5 GM CHEWABLE TABLET PO PRN (16:30)
[2017-05-10] MEDS ORDERED: SODIUM CHLORIDE 0.9% 1000ML 1,000 ML IV SCH (16:45)
[2017-05-10] MEDS ORDERED: IV FLUIDS COMPLETED PRN (16:45)
--- NOTE | 2017-05-10 16:53 | History and Physical ---
History & Physical Date & Time of Service: May 10, 2017 at 16:41 Chief Complaint: Chest Pain Primary Care Physician: Kerry Waterman D.O. History of Present Illness Source: patient, clinic records, hospital records 77 yo F presents via EMS after experiencing strong episode of R anterior chest pain that suddenly started while sitting in the pew at [employer] this morning. She describes that it moves centrally to her anterior chest and caused her significant shortness of breath, diaphoresis. Daughter told the ER physician she appeared pale and didn't look good. She was not given ASA because of an allergy, but did receive nitro with resolution of chest pain. She is now on nitro paste here in the ER and remains chest pain-free, hemodynamically stable and without symptoms. She has a h/o CAD s/p stent to LAD in 2000 and repeat cardiac catheterization in Aug 2014 without significant progression of disease. She also has Class 3 diastolic dysfunction, PAF on Coumadin, COPD, DMII with complications, long-standing hypertension with hypertensive heart disease and obesity. She does report some fleeting pains that occur infrequently and she did report these to Dr. Do at her last visit in January 2017, however, this event today was much more intense and scared her. She does report some exercise intolerance over the past two months. She was recently hospitalized for pneumonia for which she still has a residual nagging cough, but denies productive cough, fevers or chills. She also was recently treated for a UTI as outpatient with Amoxil and reports full resolution of symptoms from that. She lives alone and ambulates with a cane at baseline. Past Medical/Surgical History Medical Problems: (1) Asthma Status: Chronic (2) Atrial fibrillation Status: Chronic (3) C. difficile colitis Status: Resolved (4) Chronic anticoagulation Status: Chronic (5) Chronic kidney disease Status: Chronic (6) COPD (chronic obstructive pulmonary disease) Status: Chronic (8) Diabetes mellitus, type II Status: Chronic (9) Diabetic neuropathy Status: Chronic (10) Diabetic peripheral neuropathy associated with type 2 diabetes mellitus Status: Chronic (11) Gastroparesis Status: Chronic (12) GERD (gastroesophageal reflux disease) Status: Chronic (13) History of coronary artery disease Status: Chronic (14) History of GI bleed Status: Chronic (15) Hyperlipidemia Status: Chronic (16) Hypertension Status: Chronic (17) Migraine Status: Chronic (18) Pulmonary embolism Status: Chronic (19) Sleep apnea Status: Chronic Surgical Problems: (1) H/O heart artery stent Permanent Comment: PT[facility] LAD [facility] [place] St[place] Repeat catheterization August 2014 demonstrated stable moderate LAD stenosis. Status: Resolved (2) History of appendectomy Status: Resolved (3) History of total left hip arthroplasty Status: Resolved (4) Hx of removal of ovary Permanent Comment: R side Status: Resolved Family History FH: cancer MOTHER (cervical) BROTHER (skin, testicular) Social History Smoking Status: Former Smoker Smokeless Tobacco Use: No Alcohol Use: none Drug Use: none Marital Status: Housing status: lives alone, other Occupational Status: retired Immunizations History of Influenza Vaccine: Yes Influenza Vaccine Date: May 31, 2016 History of Tetanus Vaccine?: Yes Tetanus Immunization Date: Feb 20, 2012 History of Pneumococcal: Yes Pneumococcal Date: Nov 04, 2000 History of Hepatitis B Vaccine: No Multi-Drug Resistant Organisms History of MDRO: No Allergies Coded Allergies: Codeine (Verified Allergy, Unknown, UNKNOWN, 05/10/17) INFO FROM PT Aspirin (Verified Adverse Reaction, Intermediate, (ULCER), 05/10/17) Venlafaxine (Verified Adverse Reaction, Intermediate, DROWINESS/ CONFUSION , 05/10/17) Cephalexin (Verified Adverse Reaction, Mild, DROWSINESS, UNABLE TO DRIVE, UPSET STOMACH, 05/10/17) Oxycodone (Verified Adverse Reaction, Mild, n/v, 05/10/17) gmg Home Medications Scheduled Budesonide (Inhalation) (Pulmicort Respules 0.5MG/2ML), 1 VIAL NEB DAILY Calcitriol (Rocaltrol), 0.5 MCG PO DAILY Diltiazem Hcl Coated Beads (Diltiazem Hcl Er), 120 MG PO DAILY Ferrous Sulfate (Ferrous Sulfate), 325 MG PO DAILY Fluticasone Furoate (Inhalatio (Arnuity Ellipta), 1 PUFF INH DAILY Furosemide (Lasix), 1 TAB PO BID Home O2 Therapy (Oxygen), 3.5 LITERS NA HS Insulin Aspart (Novolog), ACHS Insulin Glargine (Lantus), 25 UNITS SQ QAM Insulin Glargine (Lantus), 11 UNITS SQ EVENING MEAL Isosorbide Mononitrate (Isosorbide Mononitrate ER), 60 MG PO DAILY Losartan Potassium (Cozaar), 100 MG PO DAILY Lovastatin (Mevacor), 80 MG PO HS Metolazone (Zaroxolyn), 2.5 MG PO WK Metoprolol Succinate (Metoprolol Succinate ER), 12.5 MG PO DAILY Omeprazole (Omeprazole), 20 MG PO DAILY Solifenacin (Vesicare), 5 MG PO DAILY Warfarin Sod (Jantoven), 4 MG PO 5XWK Warfarin Sodium (Coumadin), 2 MG PO 2XWK Scheduled PRN Glucose-Vitamin C (Glucose), 1 TAB PO UD PRN for LOW SUGAR Levalbuterol Hcl (Levalbuterol Hcl), 3 ML INH Q4 PRN for SOB/Wheezing Nitroglycerin (Nitrostat), 0.4 MG UT PRN PRN for Chest Pain Review of Systems Constitutional: No fever, No chills, No weight loss Eyes: No problem reported ENT: No problem reported Respiratory: + cough, + shortness of breath, + dyspnea on exertion (gradual exercise tolerance), No sputum, No wheezing Cardiovascular: + chest pain, + edema, No palpitations Abdomen: No pain, No nausea, No vomiting, No diarrhea, No constipation, No GI bleeding Musculoskeletal: No joint pain, No muscle pain, No swelling Genitourinary - Female: No dysuria, No urinary frequency, No urinary urgency Neurologic: No problem reported Integumentary: No new/changing skin lesions Allergic / Immunologic: No food allergies Physical Exam Vital Signs Date Time Temp Pulse Resp B/P (MAP) Pulse Ox O2 Delivery O2 Flow Rate FiO2 05/10/17 15:40 74 16 130/89 100 Room Air 05/10/17 15:25 98 Room Air 05/10/17 13:21 75 18 166/65 98 Room Air 05/10/17 12:04 68 05/10/17 12:00 100 Room Air 05/10/17 12:00 100 Room Air 05/10/17 12:00 36.8 69 20 176/59 100 Room Air General Appearance: no apparent distress, + obese Head: normocephalic, atraumatic Eyes: normal inspection, PERRL, sclerae normal ENT: normal ENT inspection, pharynx normal (MMM) Respiratory/Chest: lungs clear, normal breath sounds, no respiratory distress, no accessory muscle use, + pertinent finding (chest tenderness to palpation- significant) Cardiovascular: regular rate, rhythm, no edema, no gallop, no JVD, no murmur, normal peripheral pulses Abdomen/GI: normal bowel sounds, non tender, soft Back: normal inspection Extremities/Musculoskelatal: normal inspection, no calf tenderness, + pertinent finding (small ecchymotic area on L great toe, no drainage or ulceration present. 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, no motor/sensory deficits, alert, normal mood/affect, oriented x 3 Skin: normal color Diagnostics Laboratory Results 05/10/17 12:15 05/10/17 12:15 05/10/17 13:22 Test 05/10/17 12:15 05/10/17 12:43 05/10/17 13:22 Red Blood Count 3.47 M/uL (4.2-5.4) Mean Corpuscular Volume 92.2 fL (80-100) Mean Corpuscular Hemoglobin 30.8 pg (25-34) Mean Corpuscular Hemoglobin Concent 33.4 g/dl (32-36) Anion Gap 8.0 mmol/L (3-11) Est Creatinine Clear Calc Drug Dose 24.8 ml/min Estimated GFR () 22.7 Estimated GFR (Non- 19.6 BUN/Creatinine Ratio 18.1 (10-20) Calcium Level 9.3 mg/dl (8.5-10.1) Total Bilirubin 0.6 mg/dl (0.2-1) Alanine Aminotransferase (ALT/SGPT) 21 U/L (12-78) Alkaline Phosphatase 107 U/L (45-117) Creatine Kinase MB 1.8 ng/ml (0.5-3.6) Troponin I < 0.015 ng/ml (0-0.045) Total Protein 6.6 gm/dl (6.4-8.2) Albumin 3.3 gm/dl (3.4-5.0) Globulin 3.3 gm/dl (2.5-4.0) Albumin/Globulin Ratio 1.0 (0.9-2) Creatine Kinase MB Ratio (0-3.0) Prothrombin Time 24.1 SECONDS (9.0-12.0) Prothromb Time International Ratio 2.2 (0.9-1.1) Activated Partial Thromboplast Time 31.7 SECONDS (21.0-31.0) Partial Thromboplastin Ratio 1.2 Aspartate Amino Transf (AST/SGOT) 15 U/L (15-37) Total Creatine Kinase 91 U/L (26-192) Results Past 24 Hours Test 05/10/17 12:15 05/10/17 12:43 05/10/17 13:22 Range/Units White Blood Count 5.21 4.8-10.8 K/uL Red Blood Count 3.47 4.2-5.4 M/uL Hemoglobin 10.7 12.0-16.0 g/dL Hematocrit 32.0 37-47 % Mean Corpuscular Volume 92.2 80-100 fL Mean Corpuscular Hemoglobin 30.8 25-34 pg Mean Corpuscular Hemoglobin Concent 33.4 32-36 g/dl Platelet Count 136 130-400 K/uL Sodium Level 139 136-145 mmol/L Potassium Level 3.3 3.5-5.1 mmol/L Chloride Level 99 98-107 mmol/L Carbon Dioxide Level 32 21-32 mmol/L Anion Gap 8.0 3-11 mmol/L Blood Urea Nitrogen 42 7-18 mg/dl Creatinine 2.30 0.60-1.20 mg/dl Est Creatinine Clear Calc Drug Dose 24.8 ml/min Estimated GFR () 22.7 Estimated GFR (Non- 19.6 BUN/Creatinine Ratio 18.1 10-20 Random Glucose 192 70-99 mg/dl Calcium Level 9.3 8.5-10.1 mg/dl Total Bilirubin 0.6 0.2-1 mg/dl Aspartate Amino Transf (AST/SGOT) 15 15-37 U/L Alanine Aminotransferase (ALT/SGPT) 21 12-78 U/L Alkaline Phosphatase 107 45-117 U/L Total Creatine Kinase 91 26-192 U/L Creatine Kinase MB 1.8 0.5-3.6 ng/ml Troponin I < 0.015 0-0.045 ng/ml Total Protein 6.6 6.4-8.2 gm/dl Albumin 3.3 3.4-5.0 gm/dl Globulin 3.3 2.5-4.0 gm/dl Albumin/Globulin Ratio 1.0 0.9-2 Creatine Kinase MB Ratio 0-3.0 Prothrombin Time 24.1 9.0-12.0 SECONDS Prothromb Time International Ratio 2.2 0.9-1.1 Activated Partial Thromboplast Time 31.7 21.0-31.0 SECONDS Partial Thromboplastin Ratio 1.2 Diagnostic Radiology CHEST ONE VIEW PORTABLE CLINICAL HISTORY: chest pain dyspnea COMPARISON STUDY: 05/05/2017 FINDINGS: Mild stable cardiomegaly. Diaphragms smooth. Slight chronic blunting left lateral costophrenic angle. Unchanging nodular density right upper lung. Slight increase in pulmonary vasculature. IMPRESSION: Early pulmonary vascular congestion. Moderate stable cardiomegaly. EKG SR 65, no q waves, no ST changes. Impression Assessment and Plan 77 yo F with CAD presents with chest pain relieved with nitro 1. Chest pain-of concern with history, description and risk factors with associated symptoms today. She is currently stable and one nitro took her out of pain. CXR shows early congestion but lungs are clear and patient does not appear clinically vol overloaded. TRS is 3 (age>65, 3 RF for CAD, known CAD). Cont coumadin, statin, Toprol, Losartan, nitro prn, morphine prn. Serial cardiac enzymes overnight with cardiac monitoring. Cards consult in am. NPO p MN in case of procedure. 2. HTN-Per EMS she was normotensive 142/71. Cont current medication and monitor. 3. DMII-on insulin at home. Cont ISS/glargine and carb coverage. 4. KARLEE-poss dehydration. Giving one L and rechecking in am. Baseline creat 1.8 (CKD Stage III) 5. Anemia of chronic disease-at baseline. Monitor PRN 6. PAF-on coumadin and rate is controlled. INR therapeutic. Pt is currently in sinus rhythm 7. COPD-stable, cont home inhalers. 8. FRANCES-denies CPAP use DVT proph-coumadin Full Code-confirmed with patient on admission Dispo-to telemetry. Risk stratification determination by Cards team. DO Pilo ZhaoDavies campusist Level of Care Telemetry Advanced Directives Existing Living Will: No Existing Power of Donation Specialist: No Resuscitation Status FULL RESUSCITATION VTE Prophylaxis VTE Risk Assessment Done? Y/N: Yes Risk Level: Moderate Given or contraindicated: Warfarin (Coumadin)
[2017-05-10] MEDS ORDERED: FUROSEMIDE 40 MG TAB PO SCH (17:00)
[2017-05-10] MEDS ORDERED: GLUCAGON FOR INJ 1 MG VIAL SQ PRN (17:15)
[2017-05-10] MEDS ORDERED: GLUCOSE 10 TABS/TUBE PO PRN (17:15)
[2017-05-10] MEDS ORDERED: GLUCOSE 40% GEL 15 GM TUBE PO PRN (17:15)
[2017-05-10] MEDS ORDERED: DEXTROSE 50% 50 ML SYR IV PRN (17:15)
[2017-05-10 17:52] VITALS: BP 149/63; PULSE 68; O2SAT 100
[2017-05-10] MEDS: WARFARIN SOD 4 MG TAB PO SCH ×2 (18:00→18:08)
[2017-05-10] MEDS ORDERED: POTASSIUM CHLORIDE 20 MEQ TABCR PO ONE (18:15)
[2017-05-10] MEDS ORDERED: NURSING DECISION MEDICATION ORDER SCH (18:15)
[2017-05-10 18:40] LABS: CKMB/CK RATIO 1.1 (0-3.0)
[2017-05-10 19:02] VITALS: BP 135/57; PULSE 67; TEMP 36.5; O2SAT 100
[2017-05-10] MEDS: ARNUITY~ORDER AWAITING ACTION SCH (19:34)
[2017-05-10] MEDS: INSULIN GLARGINE SOLOSTAR 100 UNITS/ML 3 ML PEN SC SCH (20:41)
[2017-05-10] MEDS: INSULIN ASPART 100 UNITS/ML 3 ML PEN SC SCH (20:42)
[2017-05-10 23:25] VITALS: BP 137/55; PULSE 66; TEMP 36.6; O2SAT 97
[2017-05-11] VITALS (10 sets, daily range): BP systolic 112–162; BP diastolic 53–73; PULSE 61–87; TEMP 36.5–36.9; O2SAT 95–100
[2017-05-11 00:56] LABS: CKMB/CK RATIO 1.4 (0-3.0)
[2017-05-11] MEDS: NITROGLYCERIN 0.4 MG SL PER TAB CHARGE SL PRN ×2 (05:24→05:30)
[2017-05-11] MEDS: INSULIN ASPART 100 UNITS/ML 3 ML PEN SC SCH ×4 (07:00→21:27)
[2017-05-11 07:14] LABS: HEMATOCRIT 31.7 % (37-47); MEAN CELL VOLUME 94.6 fL (80-100); MEAN CORPUSCULAR HEMOGLOBIN 30.4 pg (25-34); MEAN CORPUSCULAR HGB CONC 32.2 g/dl (32-36); MEAN PLATELET VOLUME 10.5 fL (7.4-10.4); PLATELET COUNT 101 K/uL (130-400); RED BLOOD COUNT 3.35 M/uL (4.2-5.4); WHITE BLOOD COUNT 3.78 K/uL (4.8-10.8)
[2017-05-11] MEDS: BUDESONIDE 0.5 MG/2 ML VIAL (PULMICORT) INH SCH (07:17)
[2017-05-11 07:29] LABS: INR 2.2 (0.9-1.1); PROTHROMBIN TIME (PATIENT) 24.2 SECONDS (9.0-12.0)
[2017-05-11 07:46] LABS: BUN/CREATININE RATIO 17.6 (10-20); CALCIUM 8.7 mg/dl (8.5-10.1); CREATININE 2.2 mg/dl (0.60-1.20); POTASSIUM 3.7 mmol/L (3.5-5.1)
[2017-05-11 07:49] LABS: CHOLESTEROL/HDL RATIO 2.6
[2017-05-11] MEDS: ARNUITY~ORDER AWAITING ACTION SCH ×3 (08:00→22:04)
[2017-05-11 08:22] LABS: ESTIMATED AVERAGE GLUCOSE 177 mg/dl; HA1C FLAG Normal (Normal)
[2017-05-11] MEDS ORDERED: WARFARIN SOD 2 MG TAB PO SCH ×2 (09:00→16:00)
[2017-05-11] MEDS ORDERED: LOSARTAN POTASSIUM 50 MG TAB PO SCH (09:00)
[2017-05-11] MEDS: ISOSORBIDE MONONITRATE 60 MG TABCR PO SCH (10:47)
[2017-05-11] MEDS: PANTOprazole SOD 40 MG TAB PO SCH (10:47)
[2017-05-11] MEDS: ATORVASTATIN 40 MG TAB PO SCH (10:48)
[2017-05-11] MEDS: INSULIN GLARGINE SOLOSTAR 100 UNITS/ML 3 ML PEN SC SCH ×2 (10:49→21:27)
[2017-05-11] MEDS: FERROUS SULFATE 325 MG TAB PO SCH (10:52)
[2017-05-11] MEDS: CALCITRIOL 0.25 MCG CAP PO SCH (10:52)
[2017-05-11] MEDS: DILTIAZEM HCL 120 MG CAPCR PO SCH (10:53)
[2017-05-11] MEDS: METOPROLOL SUCC 25MG EXT REL TAB PO SCH (10:54)
--- NOTE | 2017-05-11 15:49 | Progress Note ---
Medicine Progress Note Date & Time of Visit: May 11, 2017 at 15:24. Subjective currently NPO in preparation for possible stress reports one episode of chest pain early this morning that was not instantly better with one nitro, she required two. She states this was less intense than the pain yesterday, but was stronger than usual. She states that she still has a residual feeling that the pain was there but no actual pain at this time. Awaiting cardiology evaluation this morning. Negative serial enzymes overnight hemodynamically stable no acute EKG changes this morning. Objective Last 8 Hrs Date Time Temp Pulse Resp B/P (MAP) Pulse Ox O2 Delivery O2 Flow Rate FiO2 05/11/17 12:00 Room Air 05/11/17 11:38 36.5 67 18 158/70 (99) 100 Nasal Cannula 4.0 05/11/17 08:00 Room Air Physical Exam: General Appearance: no apparent distress, + obese Head: normocephalic, atraumatic Eyes: normal inspection, PERRL, sclerae normal ENT: normal ENT inspection, pharynx normal (MMM) Respiratory/Chest: lungs clear, normal breath sounds, no respiratory distress, no accessory muscle use, + pertinent finding (chest tenderness to palpation- significant) Cardiovascular: regular rate, rhythm, no edema, no gallop, no JVD, no murmur, normal peripheral pulses Abdomen/GI: normal bowel sounds, non tender, soft Back: normal inspection Extremities/Musculoskelatal: normal inspection, no calf tenderness, + pertinent finding (small ecchymotic area on L great toe, no drainage or ulceration present. 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 as tested, no motor/sensory deficits, alert, normal mood/affect, oriented x 3 Skin: normal color Laboratory Results: 05/11/17 06:34 05/11/17 06:34 Test 05/10/17 12:15 05/10/17 13:22 05/11/17 00:14 05/11/17 06:34 Total Bilirubin 0.6 mg/dl (0.2-1) Alanine Aminotransferase (ALT/SGPT) 21 U/L (12-78) Alkaline Phosphatase 107 U/L (45-117) Total Protein 6.6 gm/dl (6.4-8.2) Albumin 3.3 gm/dl (3.4-5.0) Globulin 3.3 gm/dl (2.5-4.0) Albumin/Globulin Ratio 1.0 (0.9-2) Activated Partial Thromboplast Time 31.7 SECONDS (21.0-31.0) Partial Thromboplastin Ratio 1.2 Aspartate Amino Transf (AST/SGOT) 15 U/L (15-37) Total Creatine Kinase 71 U/L (26-192) Creatine Kinase MB 1.0 ng/ml (0.5-3.6) Creatine Kinase MB Ratio 1.4 (0-3.0) Red Blood Count 3.35 M/uL (4.2-5.4) Mean Corpuscular Volume 94.6 fL (80-100) Mean Corpuscular Hemoglobin 30.4 pg (25-34) Mean Corpuscular Hemoglobin Concent 32.2 g/dl (32-36) RDW Standard Deviation 47.7 fL (36.4-46.3) RDW Coefficient of Variation 13.8 % (11.5-14.5) Mean Platelet Volume 10.5 fL (7.4-10.4) Prothrombin Time 24.2 SECONDS (9.0-12.0) Prothromb Time International Ratio 2.2 (0.9-1.1) Anion Gap 6.0 mmol/L (3-11) Est Creatinine Clear Calc Drug Dose 25.4 ml/min Estimated GFR () 23.9 Estimated GFR (Non- 20.6 BUN/Creatinine Ratio 17.6 (10-20) Estimated Average Glucose 177 mg/dl Hemoglobin A1c 7.8 % (4.5-5.6) Calcium Level 8.7 mg/dl (8.5-10.1) Triglycerides Level 114 mg/dl (0-150) Cholesterol Level 132 mg/dl (0-200) HDL Cholesterol 50 mg/dl LDL Cholesterol, Calculated 59 mg/dl VLDL Cholesterol, Calculated 23 mg/dl Cholesterol/HDL Ratio 2.6 Test 05/11/17 11:05 05/11/17 12:56 Bedside Glucose 132 mg/dl (70-90) Troponin I < 0.015 ng/ml (0-0.045) Last 24 Hours Test 05/10/17 17:48 05/10/17 18:00 05/10/17 19:56 05/11/17 00:14 Bedside Glucose 121 mg/dl 178 mg/dl Total Creatine Kinase 81 U/L 71 U/L Creatine Kinase MB 0.9 ng/ml 1.0 ng/ml Creatine Kinase MB Ratio 1.1 1.4 Troponin I < 0.015 ng/ml < 0.015 ng/ml Test 05/11/17 06:34 05/11/17 07:11 05/11/17 11:05 05/11/17 12:56 White Blood Count 3.78 K/uL Red Blood Count 3.35 M/uL Hemoglobin 10.2 g/dL Hematocrit 31.7 % Mean Corpuscular Volume 94.6 fL Mean Corpuscular Hemoglobin 30.4 pg Mean Corpuscular Hemoglobin Concent 32.2 g/dl RDW Standard Deviation 47.7 fL RDW Coefficient of Variation 13.8 % Platelet Count 101 K/uL Mean Platelet Volume 10.5 fL Prothrombin Time 24.2 SECONDS Prothromb Time International Ratio 2.2 Sodium Level 143 mmol/L Potassium Level 3.7 mmol/L Chloride Level 105 mmol/L Carbon Dioxide Level 32 mmol/L Anion Gap 6.0 mmol/L Blood Urea Nitrogen 39 mg/dl Creatinine 2.20 mg/dl Est Creatinine Clear Calc Drug Dose 25.4 ml/min Estimated GFR () 23.9 Estimated GFR (Non- 20.6 BUN/Creatinine Ratio 17.6 Random Glucose 129 mg/dl Estimated Average Glucose 177 mg/dl Hemoglobin A1c 7.8 % Calcium Level 8.7 mg/dl Triglycerides Level 114 mg/dl Cholesterol Level 132 mg/dl HDL Cholesterol 50 mg/dl LDL Cholesterol, Calculated 59 mg/dl VLDL Cholesterol, Calculated 23 mg/dl Cholesterol/HDL Ratio 2.6 Bedside Glucose 126 mg/dl 132 mg/dl Troponin I < 0.015 ng/ml Assessment & Plan 77 yo F with CAD presents with chest pain relieved with nitro 1. Chest pain-of concern with history, description and risk factors with associated symptoms today. She had another episode overnight requiring nitro x 2 with some improvement. Per Cards, she is not a good candidate for a stress test. Will keep her one more night for monitoring and hold her coumadin in the event she has more pain and a procedure is needed. No events on tele overnight , negative enzymes including repeat now and no EKG changes to indicate acute ischemia. Cont medical management of CAD per home regimen. 2. HTN-controlled, cont current medical therapy. 3. DMII-on insulin at home. Cont ISS/glargine and carb coverage. At goal 4. KARLEE-poss dehydration vs diuretic use. Baseline creat 1.8 (CKD Stage III) Gave 1 L overnight but Lasix was given in the evening. Cont to hold diuretics and Losartan. Urine studies. Trend PRP in am. 5. Anemia of chronic disease-at baseline. Monitor PRN 6. PAF-on coumadin and rate is controlled. INR therapeutic. Pt is currently in sinus rhythm. Hold coumadin for possible procedure. 7. COPD-stable, cont home inhalers. 8. FRANCES-denies CPAP use DVT proph-coumadin Full Code-confirmed with patient on admission Dispo-cont tele. DO [facility] Hospitalist Consultants: CardiologyJasiel Current Inpatient Medications: Current Inpatient Medications Medications (Trade) Dose Ordered Sig/Rose Route Start Time Stop Time Status Last Admin Dose Admin Acetaminophen (Tylenol Tab) 650 mg Q4H PRN PO 05/10/17 16:15 06/09/17 16:14 Ondansetron HCl (Zofran Inj) 4 mg Q6H PRN IV 05/10/17 16:15 06/09/17 16:14 Nitroglycerin (Nitrostat Tab) 0.4 mg UD PRN SL 05/10/17 16:15 06/09/17 16:14 05/11/17 05:30 0.4 MG Morphine Sulfate (MoRPHine SULFATE INJ) 2 mg Q30M PRN IV 05/10/17 16:15 05/24/17 16:14 Polyethylene (Miralax Powder Packet) 17 gm DAILY PRN PO 05/10/17 16:15 06/09/17 16:14 Budesonide (Pulmicort Respules 0.5MG/ 2ML Neb Soln) 0.5 mg DAILY INH 05/11/17 09:00 06/10/17 08:59 05/11/17 07:17 0.5 MG Diltiazem HCl (Cardizem Cd Cap) 120 mg DAILY PO 05/11/17 09:00 06/10/17 08:59 05/11/17 10:53 120 MG Ferrous Sulfate (Feosol Tab) 325 mg DAILY PO 05/11/17 09:00 06/10/17 08:59 05/11/17 10:52 325 MG Furosemide (Lasix Tab) 40 mg BID17 PO 05/10/17 17:00 06/09/17 16:59 Future Hold 05/10/17 18:09 40 MG Glucose (Glucose Chew Tab) 1 tab UD PRN PO 05/10/17 16:30 06/09/17 16:29 Isosorbide Mononitrate (Imdur Ext Rel Tab) 60 mg DAILY PO 05/11/17 09:00 06/10/17 08:59 05/11/17 10:47 60 MG Levalbuterol (Xopenex 1.25MG/ 3ML Neb) 1.25 mg Q4 PRN INH 05/10/17 16:30 06/09/17 16:29 Losartan Potassium (coZAAR TAB) 100 mg DAILY PO 05/11/17 09:00 06/10/17 08:59 Future Hold Metolazone (Zaroxolyn Tab) 2.5 mg We@0900 PO 05/13/17 09:00 06/12/17 08:59 Metoprolol Succinate (Toprol Xl Tab) 12.5 mg DAILY PO 05/11/17 09:00 06/10/17 08:59 05/11/17 10:54 12.5 MG Miscellaneous Information (Order Awaiting Action) 1 ea QS N/A 05/11/17 00:00 06/10/17 00:00 Calcitriol (Rocaltrol Cap) 0.25 mcg QAM PO 05/11/17 09:00 06/10/17 08:59 05/11/17 10:52 0.25 MCG Atorvastatin Calcium (Lipitor Tab) 80 mg QAM PO 05/11/17 09:00 06/10/17 08:59 05/11/17 10:48 80 MG Pantoprazole Sodium (Protonix Tab) 40 mg QAM PO 05/11/17 09:00 06/10/17 08:59 05/11/17 10:47 40 MG Miscellaneous (Iv Fluids Completed) 1 ea PRN PRN N/A 05/10/17 16:45 05/10/18 16:44 Insulin Glargine (Lantus Solostar Pen) 10 units Q12 SC 05/10/17 21:00 06/09/17 20:59 05/11/17 10:49 10 UNITS Insulin Aspart (novoLOG ASPART) SLIDING SCALE If C... ACHS SC 05/10/17 21:00 06/09/17 20:59 Glucose (Glucose 40% Gel) 15-30 GRAMS 15 GRAMS... UD PRN PO 05/10/17 17:15 06/09/17 17:14 Glucose (Glucose Chew Tab) 4-8 Tablets 4 Tabl... UD PRN PO 05/10/17 17:15 06/09/17 17:14 Dextrose (Dextrose 50% 50ML Syringe) 25-50ML OF 50% DW IV FOR... UD PRN IV 05/10/17 17:15 06/09/17 17:14 Glucagon (Glucagon Inj) 1 mg UD PRN SQ 05/10/17 17:15 06/09/17 17:14 Warfarin Sodium (Coumadin Tab) 4 mg SuTuWeFrSa@0900 PO 05/12/17 09:00 06/11/17 08:59 Warfarin Sodium (Coumadin Tab) 2 mg MoTh@0900 PO 05/11/17 09:00 06/10/17 08:59
--- NOTE | 2017-05-11 21:29 | CARDIOLOGY CONSULTATION ---
DATE OF CONSULTATION: 05/11/2017 REFERRING PHYSICIAN: Tom regan. REASON FOR CONSULTATION: Chest pain. HISTORY OF PRESENT ILLNESS: The patient is a 77-year-old female with a history of coronary artery disease. In 2000, she underwent a coronary intervention on the LAD. Then in 2014, she had a repeat cardiac catheterization that showed no progression in her coronary artery disease. She has type 3 diastolic dysfunction and paroxysmal atrial fibrillation. She is known to have type 2 diabetes with neuropathy, longstanding history of hypertension with hypertensive heart disease, chronic obstructive lung disease and chronic stasis edema. Despite the above, she has been in a good state of health until yesterday while at religion, she developed midsternal chest discomfort, which she describes as severe. The patient admits to having chronic right-sided chest discomfort, which is mild. The discomfort she had yesterday was different. She was brought to the hospital by her daughter and after arrival in the Emergency Department, she received sublingual nitroglycerin with relief. Her EKG showed no acute changes. Two sets of cardiac enzymes are negative. The patient after admission was doing well; however, early this morning around 04:00 a.m., she had additional chest pain that was relieved with 2 sublingual nitroglycerins. The patient is not very active. She walks with a walker. ALLERGIES: THE PATIENT LISTS ALLERGIES TO SALICYLATES, EFFEXOR, OXYCODONE, AND TYLENOL WITH CODEINE. PAST MEDICAL HISTORY: In addition to what is outlined in the history of chief complaint, the patient was admitted in August 2016 with diverticular bleeding and also had an Emergency Department visit for candidiasis and possible cellulitis of the groin. SOCIAL HISTORY: She is a nonsmoker. She lives independently. FAMILY MEDICAL HISTORY: Noncontributory. REVIEW OF SYSTEMS: A 10-point review of systems is negative except for the history of chief complaint. PHYSICAL EXAMINATION: GENERAL: She is alert and oriented. VITAL SIGNS: Blood pressure is 150/70 and pulse is regular at 67. She is afebrile. HEENT: She is normocephalic. Pupils are equal and reactive to light. Extraocular muscles are intact bilaterally. NECK: The neck veins are flat. Carotids have good upstrokes bilaterally without bruits. Thyroid is nonpalpable. RESPIRATORY: Breath sounds equal bilaterally and clear to auscultation. CARDIOVASCULAR: Heart has a regular rhythm. Normal S1 and S2. No S3 or S4. No cardiac rubs or murmurs. GASTROINTESTINAL: Abdomen is soft and nontender without organomegaly. EXTREMITIES: Free of edema, digit clubbing, or cyanosis. NEUROLOGIC: Grossly intact. SKIN: Warm to touch. LYMPH NODES: Negative to palpation. LABORATORY DATA: Troponins are negative. EKG shows no acute changes. IMPRESSION: 1. Chest pain. 2. History of prior coronary artery disease with PCI in 2000 and repeat cardiac catheterization in 2014, showing no progression in disease. 3. Hypertension with hypertensive heart failure and chronic diastolic heart failure. 4. Paroxysmal atrial fibrillation. 5. Diabetes mellitus. RECOMMENDATIONS: The patient is probably a poor candidate for any type of stress testing. Her history of paroxysmal atrial arrhythmias would make dobutamine stress testing not a good modality. She is also extremely large due to obesity and therefore, nuclear stress test I think would be limited. I would recommend that we allow the patient to eat this morning. She is angry because she has not been given any food yet today. I want her to be able to ambulate today. I have also ordered another set of troponins and if they are negative and she is able to ambulate without additional chest pain, then we may be able to discharge her home with outpatient followup. If she has additional chest discomfort, then we may have to just proceed with a repeat cardiac catheterization in the morning. RAYNA
[2017-05-12 03:45] VITALS: BP 146/65; PULSE 65; TEMP 36.5; O2SAT 100
[2017-05-12 06:57] LABS: HEMATOCRIT 31.7 % (37-47); MEAN CELL VOLUME 94.6 fL (80-100); MEAN CORPUSCULAR HEMOGLOBIN 30.7 pg (25-34); MEAN CORPUSCULAR HGB CONC 32.5 g/dl (32-36); RED BLOOD COUNT 3.35 M/uL (4.2-5.4); WHITE BLOOD COUNT 4.36 K/uL (4.8-10.8)
[2017-05-12 07:03] LABS: INR 1.8 (0.9-1.1); PROTHROMBIN TIME (PATIENT) 19.4 SECONDS (9.0-12.0)
[2017-05-12 07:11] VITALS: PULSE 63; O2SAT 98
[2017-05-12] MEDS: BUDESONIDE 0.5 MG/2 ML VIAL (PULMICORT) INH SCH (07:11)
[2017-05-12 07:26] LABS: BUN/CREATININE RATIO 18.7 (10-20); CALCIUM 9.3 mg/dl (8.5-10.1); CREATININE 1.9 mg/dl (0.60-1.20)
[2017-05-12 07:31] LABS: MEAN PLATELET VOLUME 9.7 fL (7.4-10.4); PLATELET COUNT 88 K/uL (130-400)
[2017-05-12 07:32] LABS: PLT ESTIMATE DECREASED
[2017-05-12] MEDS: METOPROLOL SUCC 25MG EXT REL TAB PO SCH (07:52)
[2017-05-12] MEDS: ISOSORBIDE MONONITRATE 60 MG TABCR PO SCH (07:52)
[2017-05-12] MEDS: DILTIAZEM HCL 120 MG CAPCR PO SCH (07:52)
[2017-05-12] MEDS: ATORVASTATIN 40 MG TAB PO SCH (07:52)
[2017-05-12] MEDS: CALCITRIOL 0.25 MCG CAP PO SCH (07:53)
[2017-05-12] MEDS: FERROUS SULFATE 325 MG TAB PO SCH (07:53)
[2017-05-12] MEDS: PANTOprazole SOD 40 MG TAB PO SCH (07:53)
[2017-05-12] MEDS: INSULIN ASPART 100 UNITS/ML 3 ML PEN SC SCH ×2 (07:55→12:23)
[2017-05-12] MEDS: INSULIN GLARGINE SOLOSTAR 100 UNITS/ML 3 ML PEN SC SCH (07:56)
[2017-05-12 07:59] VITALS: BP 142/57; PULSE 78; TEMP 36.9; O2SAT 98
[2017-05-12] MEDS: ARNUITY~ORDER AWAITING ACTION SCH (07:59)
[2017-05-12] MEDS ORDERED: WARFARIN SOD 4 MG TAB PO SCH (09:00)
--- NOTE | 2017-05-12 10:33 | PROGRESS NOTE ---
DATE: 05/12/2017 SUBJECTIVE: The patient is an elderly 77-year-old female who presented with chest pain but has had negative cardiac markers and no EKG changes. The patient yesterday morning around 4:00 a.m. told the nurse that she had chest pain and received 2 sublingual nitroglycerins with relief. Yesterday, she had no additional chest pain and was actually ambulating through the hallways without difficulty. This patient unfortunately does have some confusion and probably early dementia. She continues to say that she had chest pain and told the nurses and received sublingual nitroglycerin yesterday, but according to the staff, she has not had any additional chest discomfort since yesterday evening while walking in the hallway. She was also up last night, knocking on doors in the hallway with confusion. Finally this morning, she told me that she took a walk to her mailbox and when I questioned her further, she said out to the road, so I think there is some degree of early dementia with this woman. At this point, I would let the patient eat. I do not believe we should do any additional cardiac workup, but should treat her conservatively. I tried to contact her daughter Denzel by phone and left a message on the answering machine. OBJECTIVE: GENERAL: The patient is sitting comfortably in a chair. She is alert. VITAL SIGNS: Blood pressure 140/60, pulse is regular at 78. She is afebrile. HEENT: She is normocephalic. Pupils are equal and reactive to light. Extraocular muscles are intact bilaterally. NECK: The neck veins are flat. Carotids have good upstrokes bilaterally without bruits. Thyroid is nonpalpable. RESPIRATORY: Breath sounds equal bilaterally and clear to auscultation. CARDIOVASCULAR: Heart has a regular rhythm. Normal S1, S2. No S3, S4. No cardiac rubs or murmurs. GASTROINTESTINAL: Abdomen is soft, nontender without organomegaly. EXTREMITIES: Free of edema, digit clubbing, or cyanosis. NEUROLOGIC: Grossly intact. SKIN: Warm to touch. LYMPH NODES: Negative to palpation. IMPRESSION: 1. Atypical chest pain. 2. Negative cardiac markers and enzymes. 3. Known coronary artery disease with percutaneous coronary intervention in 2000 and repeat cardiac catheterization in 2014 with no node disease progression. 4. Obesity. 5. Hypertension with hypertensive heart disease and chronic diastolic heart failure. 6. Paroxysmal atrial fibrillation. 7. Diabetes. 8. Early dementia. RECOMMENDATIONS: As outlined above, I do not believe that any additional cardiac testing is indicated at this time, especially in light of the patient's negative cardiac enzymes and markers. She is not a candidate for stress testing due to her body size and inability to ambulate on the treadmill. Pharmacological imaging with her body habitus would be limited. I also do not believe that a repeat cardiac catheterization is indicated at this time. As mentioned above, I tried to contact her daughter to let her know that her mom is little bit confused and she may have to be watched a little closer at home. From a cardiac standpoint, I believe that she may be discharged to outpatient followup.
[2017-05-12 12:17] VITALS: BP 145/60; PULSE 66; TEMP 37; O2SAT 99
--- NOTE | 2017-05-12 14:43 | Progress Note ---
Internal Med Progress Note Date of Service: May 12, 2017. Provider Documentation: SUBJECTIVE: The patient was seen and examined No more chest pain Has ahd mild confusion last evening No this morning OBJECTIVE: Vital Signs-as noted below Exam: General-No distress at rest Eyes-normal ENT-normal Neck-supple Lungs-clear to ausucltate bilaterally Heart-Regular,2/6 ESM aortic area Abdomen-Benign,no nenita,bowel sound present Extremities-Trace edema bilaterally Neuro-AAOx3 Not confused during my exam Lab data as noted below. ASSESSMENT & PLAN: 77 yo F with CAD presents with chest pain relieved with nitro Recurrent Chest pain -Multiple admissions with chest pain in recent months without any ACS -Evaluated by the [facility] in the past and during this admission -No ACS this time and no further cardiac testing is indicated as per cardiology -Continue with current medications -Nitro PRN and frequent follow ups Occasional Confusion -Cleared during my examination -may have early Dementia -Evaluate as an OP HTN-controlled, cont current medical therapy. DMII-on insulin at home. Cont ISS/glargine and carb coverage. At goal KARLEE-poss dehydration vs diuretic use. Baseline creat 1.8 (CKD Stage III) Gave 1 L overnight but Lasix was given in the evening. Cont to hold diuretics and Losartan. Creatinine improved Anemia of chronic disease-at baseline. Monitor PRN PAF-on Coumadin and rate is controlled. INR therapeutic. Pt is currently in sinus rhythm. Hold Coumadin for possible procedure. COPD-stable, cont home inhalers. FRANCES-denies CPAP use DVT proph-Coumadin Full Code-confirmed with patient on admission DISPOSITION Discharge home today Vital Signs: Date Time Temp Pulse Resp B/P (MAP) Pulse Ox O2 Delivery O2 Flow Rate FiO2 05/12/17 12:17 37.0 66 18 145/60 (88) 99 05/12/17 12:09 Room Air 05/12/17 08:00 Room Air 05/12/17 07:59 36.9 78 20 142/57 (85) 98 Room Air 05/12/17 07:11 63 16 98 Room Air 05/12/17 04:00 Room Air 05/12/17 03:45 36.5 65 17 146/65 (92) 100 Nasal Cannula 3.0 05/11/17 23:59 Room Air 05/11/17 23:16 36.5 64 22 154/64 (94) 100 Nasal Cannula 3.0 05/11/17 20:00 Room Air 05/11/17 19:15 36.6 63 18 162/64 (96) 100 Room Air 05/11/17 16:00 Room Air 05/11/17 15:08 36.5 64 20 161/73 (102) 100 Room Air Lab Results: Results Past 24 Hours Test 05/11/17 15:52 05/11/17 20:44 05/12/17 01:00 05/12/17 06:42 Range/Units Bedside Glucose 213 248 70-90 mg/dl Urine Random Creatinine 40.0 mg/dl Urine Random Urea Nitrogen 338 mg/dl White Blood Count 4.36 4.8-10.8 K/uL Red Blood Count 3.35 4.2-5.4 M/uL Hemoglobin 10.3 12.0-16.0 g/dL Hematocrit 31.7 37-47 % Mean Corpuscular Volume 94.6 80-100 fL Mean Corpuscular Hemoglobin 30.7 25-34 pg Mean Corpuscular Hemoglobin Concent 32.5 32-36 g/dl RDW Standard Deviation 47.1 36.4-46.3 fL RDW Coefficient of Variation 13.7 11.5-14.5 % Platelet Count 88 130-400 K/uL Mean Platelet Volume 9.7 7.4-10.4 fL Platelet Estimate DECREASED Prothrombin Time 19.4 9.0-12.0 SECONDS Prothromb Time International Ratio 1.8 0.9-1.1 Sodium Level 139 136-145 mmol/L Potassium Level 4.0 3.5-5.1 mmol/L Chloride Level 104 98-107 mmol/L Carbon Dioxide Level 33 21-32 mmol/L Anion Gap 2.0 3-11 mmol/L Blood Urea Nitrogen 36 7-18 mg/dl Creatinine 1.90 0.60-1.20 mg/dl Est Creatinine Clear Calc Drug Dose 29.5 ml/min Estimated GFR () 28.6 Estimated GFR (Non- 24.6 BUN/Creatinine Ratio 18.7 10-20 Random Glucose 162 70-99 mg/dl Calcium Level 9.3 8.5-10.1 mg/dl Test 05/12/17 06:58 05/12/17 11:16 Range/Units Bedside Glucose 163 214 70-90 mg/dl
--- NOTE | 2017-05-12 15:23 | Discharge Instructions ---
Discharge Instructions Date of Service May 12, 2017. Admission Reason for Admission: Atypical Chest Pain, Substernal Chest Pain Discharge Discharge Diagnosis / Problem: Recurrent Chest pain,CAD Discharge Goals Goal(s): Prevent Disease Progression Activity Recommendations Activity Limitations: resume your previous activity . Instructions / Follow-Up Instructions / Follow-Up Dr Waterman on 05/18/17 at 1:45 PM,Cardiology on 05/20/17 at 10:45 AM.Coag clinic notified Current Hospital Diet Patient's current hospital diet: AHA Diet (Heart Healthy), Diabetes Type 2 Diet Discharge Diet Recommended Diet: AHA Diet (Heart Healthy), Diabetes Type 2 Diet Fluid Restriction: 1500 ml (6 cups) Pending Studies Studies pending at discharge: no Laboratory Results Hemoglobin A1c Test 05/11/17 06:34 Range/Units Estimated Average Glucose 177 mg/dl Hemoglobin A1c 7.8 H 4.5-5.6 % Lipid Panel Test 05/11/17 06:34 Range/Units Triglycerides Level 114 0-150 mg/dl Cholesterol Level 132 0-200 mg/dl HDL Cholesterol 50 mg/dl Cholesterol/HDL Ratio 2.6 LDL Cholesterol, Calculated 59 mg/dl Medical Emergencies . Who to Call and When: Medical Emergencies: If at any time you feel your situation is an emergency, please call 911 immediately. . Non-Emergent Contact Non-Emergency issues call your: Primary Care Provider . Past History Medical & Surgical History: (1) Atypical chest pain (2) COPD exacerbation (3) Chronic kidney disease (4) Diabetes mellitus, type II (5) Hypertension (6) Sleep apnea (7) mood disorder related to medical conditions (8) Diabetic neuropathy (9) History of appendectomy (10) History of total left hip arthroplasty (11) H/O heart artery stent (12) Hx of removal of ovary . "Provider Documentation" section prepared by Jan Pacheco. . VTE Core Measure Inpt VTE Proph given/why not?: Warfarin (Coumadin)
[2017-05-12 15:37] VITALS: BP 145/60; PULSE 66; TEMP 37; O2SAT 99
--- NOTE | 2017-05-13 08:51 | Discharge Summary ---
Discharge Summary Date of Service May 13, 2017. Discharge Summary Admission Date: May 11, 2017 at 16:00 Discharge Date: May 12, 2017 Principal Diagnosis: Recurrent Chest pain,CAD Secondary Diagnoses/Problems: Please see H&P and Hospital Progress note Consultations: CardiologyJasiel Medication Reconciliation Continued Medications: Budesonide (Inhalation) (Pulmicort Respules 0.5MG/2ML) 0.5 Mg/2 Ml Akilah 1 VIAL NEB DAILY, #120 Calcitriol (Rocaltrol) 0.5 Mcg Cap 0.5 MCG PO DAILY Diltiazem Hcl Coated Beads (Diltiazem Hcl Er) 120 Mg Cap 120 MG PO DAILY Ferrous Sulfate (Ferrous Sulfate) 325 Mg Tab 325 MG PO DAILY Fluticasone Furoate (Inhalatio (Arnuity Ellipta) 100 Mcg/Act Inh 1 PUFF INH DAILY Furosemide (Lasix) 40 Mg Tab 1 TAB PO BID for 30 Days, #60 TAB 5 Refills Glucose-Vitamin C (Glucose) 1 Chw Chw 1 TAB PO UD PRN for LOW SUGAR Home O2 Therapy (Oxygen) Gas 3.5 LITERS NA HS Insulin Aspart (Novolog) 100 Units/Ml Inj ACHS SLIDING SCALE Insulin Glargine (Lantus) 100 Unit/Ml Inj 15 UNITS SQ QAM, VIAL Insulin Glargine (Lantus) 100 Unit/Ml Inj 10 UNITS SQ EVENING MEAL, VIAL Isosorbide Mononitrate (Isosorbide Mononitrate ER) 60 Mg Tab 60 MG PO DAILY Levalbuterol Hcl (Levalbuterol Hcl) 1.25 Mg/3 Ml Neb 3 ML INH Q4 PRN for SOB/Wheezing Losartan Potassium (Cozaar) 100 Mg Tab 100 MG PO DAILY Lovastatin (Mevacor) 40 Mg Tab 80 MG PO HS Metolazone (Zaroxolyn) 2.5 Mg Tab 2.5 MG PO WK, TAB Wednesdays Metoprolol Succinate (Metoprolol Succinate ER) 25 Mg Tabcr 12.5 MG PO DAILY, #15 Nitroglycerin (Nitrostat) 0.4 Mg Sub 0.4 MG UT PRN PRN for Chest Pain, BTL Omeprazole (Omeprazole) 20 Mg Tab 20 MG PO DAILY Solifenacin (Vesicare) 5 Mg Tab 5 MG PO DAILY, TAB Warfarin Sod (Jantoven) 4 Mg Tab 4 MG PO 5XWK SUN, , THU,, SAT Warfarin Sodium (Coumadin) 2 Mg Tab 2 MG PO 2XWK THU, Admission Information HPI (per Admitting provider): 77 yo F presents via EMS after experiencing strong episode of R anterior chest pain that suddenly started while sitting in the pew at [employer] this morning. She describes that it moves centrally to her anterior chest and caused her significant shortness of breath, diaphoresis. Daughter told the ER physician she appeared pale and didn't look good. She was not given ASA because of an allergy, but did receive nitro with resolution of chest pain. She is now on nitro paste here in the ER and remains chest pain-free, hemodynamically stable and without symptoms. She has a h/o CAD s/p stent to LAD in 2000 and repeat cardiac catheterization in Aug 2014 without significant progression of disease. She also has Class 3 diastolic dysfunction, PAF on Coumadin, COPD, DMII with complications, long-standing hypertension with hypertensive heart disease and obesity. She does report some fleeting pains that occur infrequently and she did report these to Dr. Do at her last visit in January 2017, however, this event today was much more intense and scared her. She does report some exercise intolerance over the past two months. She was recently hospitalized for pneumonia for which she still has a residual nagging cough, but denies productive cough, fevers or chills. She also was recently treated for a UTI as outpatient with Amoxil and reports full resolution of symptoms from that. She lives alone and ambulates with a cane at baseline. Past Medical/Surgical History Medical Problems: (1) Asthma Status: Chronic (2) Atrial fibrillation Status: Chronic (3) C. difficile colitis Status: Resolved (4) Chronic anticoagulation Status: Chronic (5) Chronic kidney disease Status: Chronic (6) COPD (chronic obstructive pulmonary disease) Status: Chronic (8) Diabetes mellitus, type II Status: Chronic (9) Diabetic neuropathy Status: Chronic (10) Diabetic peripheral neuropathy associated with type 2 diabetes mellitus Status: Chronic (11) Gastroparesis Status: Chronic (12) GERD (gastroesophageal reflux disease) Status: Chronic (13) History of coronary artery disease Status: Chronic (14) History of GI bleed Status: Chronic (15) Hyperlipidemia Status: Chronic (16) Hypertension Status: Chronic (17) Migraine Status: Chronic (18) Pulmonary embolism Status: Chronic (19) Sleep apnea Status: Chronic Surgical Problems: (1) H/O heart artery stent Permanent Comment: PTCA LAD [facility] [place] (AVE Stent). Repeat catheterization August 2014 demonstrated stable moderate LAD stenosis. Status: Resolved (2) History of appendectomy Status: Resolved (3) History of total left hip arthroplasty Status: Resolved (4) Hx of removal of ovary Permanent Comment: R side Status: Resolved Family History FH: cancer MOTHER (cervical) BROTHER (skin, testicular) Social History Smoking Status: Former Smoker Smokeless Tobacco Use: No Alcohol Use: none Drug Use: none Marital Status: Housing status: lives alone, other Occupational Status: retired Immunizations History of Influenza Vaccine: Yes Influenza Vaccine Date: May 31, 2016 History of Tetanus Vaccine?: Yes Tetanus Immunization Date: Feb 20, 2012 History of Pneumococcal: Yes Pneumococcal Date: Nov 04, 2000 History of Hepatitis B Vaccine: No Multi-Drug Resistant Organisms History of MDRO: No Allergies Coded Allergies: Codeine (Verified Allergy, Unknown, UNKNOWN, 05/10/17) INFO FROM PT Aspirin (Verified Adverse Reaction, Intermediate, (ULCER), 05/10/17) Venlafaxine (Verified Adverse Reaction, Intermediate, DROWINESS/ CONFUSION , 05/10/17) Cephalexin (Verified Adverse Reaction, Mild, DROWSINESS, UNABLE TO DRIVE, UPSET STOMACH, 05/10/17) Oxycodone (Verified Adverse Reaction, Mild, n/v, 05/10/17) gmg Home Medications Scheduled Budesonide (Inhalation) (Pulmicort Respules 0.5MG/2ML), 1 VIAL NEB DAILY Calcitriol (Rocaltrol), 0.5 MCG PO DAILY Diltiazem Hcl Coated Beads (Diltiazem Hcl Er), 120 MG PO DAILY Ferrous Sulfate (Ferrous Sulfate), 325 MG PO DAILY Fluticasone Furoate (Inhalatio (Arnuity Ellipta), 1 PUFF INH DAILY Furosemide (Lasix), 1 TAB PO BID Home O2 Therapy (Oxygen), 3.5 LITERS NA HS Insulin Aspart (Novolog), ACHS Insulin Glargine (Lantus), 25 UNITS SQ QAM Insulin Glargine (Lantus), 11 UNITS SQ EVENING MEAL Isosorbide Mononitrate (Isosorbide Mononitrate ER), 60 MG PO DAILY Losartan Potassium (Cozaar), 100 MG PO DAILY Lovastatin (Mevacor), 80 MG PO HS Metolazone (Zaroxolyn), 2.5 MG PO WK Metoprolol Succinate (Metoprolol Succinate ER), 12.5 MG PO DAILY Omeprazole (Omeprazole), 20 MG PO DAILY Solifenacin (Vesicare), 5 MG PO DAILY Warfarin Sod (Jantoven), 4 MG PO 5XWK Warfarin Sodium (Coumadin), 2 MG PO 2XWK Scheduled PRN Glucose-Vitamin C (Glucose), 1 TAB PO UD PRN for LOW SUGAR Levalbuterol Hcl (Levalbuterol Hcl), 3 ML INH Q4 PRN for SOB/Wheezing Nitroglycerin (Nitrostat), 0.4 MG UT PRN PRN for Chest Pain Review of Systems Constitutional: No fever, No chills, No weight loss Eyes: No problem reported ENT: No problem reported Respiratory: + cough, + shortness of breath, + dyspnea on exertion (gradual exercise tolerance), No sputum, No wheezing Cardiovascular: + chest pain, + edema, No palpitations Abdomen: No pain, No nausea, No vomiting, No diarrhea, No constipation, No GI bleeding Musculoskeletal: No joint pain, No muscle pain, No swelling Genitourinary - Female: No dysuria, No urinary frequency, No urinary urgency Neurologic: No problem reported Integumentary: No new/changing skin lesions Allergic / Immunologic: No food allergies Physical Ex - H&P Physical Exam Vital Signs Date Time Temp Pulse Resp B/P (MAP) Pulse Ox O2 Delivery O2 Flow Rate FiO2 05/10/17 15:40 74 16 130/89 100 Room Air 05/10/17 15:25 98 Room Air 05/10/17 13:21 75 18 166/65 98 Room Air 05/10/17 12:04 68 05/10/17 12:00 100 Room Air 05/10/17 12:00 100 Room Air 05/10/17 12:00 36.8 69 20 176/59 100 Room Air General Appearance: no apparent distress, + obese Head: normocephalic, atraumatic Eyes: normal inspection, PERRL, sclerae normal ENT: normal ENT inspection, pharynx normal (MMM) Respiratory/Chest: lungs clear, normal breath sounds, no respiratory distress, no accessory muscle use, + pertinent finding (chest tenderness to palpation- significant) Cardiovascular: regular rate, rhythm, no edema, no gallop, no JVD, no murmur, normal peripheral pulses Abdomen/GI: normal bowel sounds, non tender, soft Back: normal inspection Extremities/Musculoskelatal: normal inspection, no calf tenderness, + pertinent finding (small ecchymotic area on L great toe, no drainage or ulceration present. 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, no motor/sensory deficits, alert, normal mood/affect, oriented x 3 Skin: normal color Diagnostics - H&P Diagnostics Laboratory Results 05/10/17 12:15 05/10/17 12:15 05/10/17 13:22 Test 05/10/17 12:15 05/10/17 12:43 05/10/17 13:22 Red Blood Count 3.47 M/uL (4.2-5.4) Mean Corpuscular Volume 92.2 fL (80-100) Mean Corpuscular Hemoglobin 30.8 pg (25-34) Mean Corpuscular Hemoglobin Concent 33.4 g/dl (32-36) Anion Gap 8.0 mmol/L (3-11) Est Creatinine Clear Calc Drug Dose 24.8 ml/min Estimated GFR () 22.7 Estimated GFR (Non- 19.6 BUN/Creatinine Ratio 18.1 (10-20) Calcium Level 9.3 mg/dl (8.5-10.1) Total Bilirubin 0.6 mg/dl (0.2-1) Alanine Aminotransferase (ALT/SGPT) 21 U/L (12-78) Alkaline Phosphatase 107 U/L (45-117) Creatine Kinase MB 1.8 ng/ml (0.5-3.6) Troponin I < 0.015 ng/ml (0-0.045) Total Protein 6.6 gm/dl (6.4-8.2) Albumin 3.3 gm/dl (3.4-5.0) Globulin 3.3 gm/dl (2.5-4.0) Albumin/Globulin Ratio 1.0 (0.9-2) Creatine Kinase MB Ratio (0-3.0) Prothrombin Time 24.1 SECONDS (9.0-12.0) Prothromb Time International Ratio 2.2 (0.9-1.1) Activated Partial Thromboplast Time 31.7 SECONDS (21.0-31.0) Partial Thromboplastin Ratio 1.2 Aspartate Amino Transf (AST/SGOT) 15 U/L (15-37) Total Creatine Kinase 91 U/L (26-192) Results Past 24 Hours Test 05/10/17 12:15 05/10/17 12:43 05/10/17 13:22 Range/Units White Blood Count 5.21 4.8-10.8 K/uL Red Blood Count 3.47 4.2-5.4 M/uL Hemoglobin 10.7 12.0-16.0 g/dL Hematocrit 32.0 37-47 % Mean Corpuscular Volume 92.2 80-100 fL Mean Corpuscular Hemoglobin 30.8 25-34 pg Mean Corpuscular Hemoglobin Concent 33.4 32-36 g/dl Platelet Count 136 130-400 K/uL Sodium Level 139 136-145 mmol/L Potassium Level 3.3 3.5-5.1 mmol/L Chloride Level 99 98-107 mmol/L Carbon Dioxide Level 32 21-32 mmol/L Anion Gap 8.0 3-11 mmol/L Blood Urea Nitrogen 42 7-18 mg/dl Creatinine 2.30 0.60-1.20 mg/dl Est Creatinine Clear Calc Drug Dose 24.8 ml/min Estimated GFR () 22.7 Estimated GFR (Non- 19.6 BUN/Creatinine Ratio 18.1 10-20 Random Glucose 192 70-99 mg/dl Calcium Level 9.3 8.5-10.1 mg/dl Total Bilirubin 0.6 0.2-1 mg/dl Aspartate Amino Transf (AST/SGOT) 15 15-37 U/L Alanine Aminotransferase (ALT/SGPT) 21 12-78 U/L Alkaline Phosphatase 107 45-117 U/L Total Creatine Kinase 91 26-192 U/L Creatine Kinase MB 1.8 0.5-3.6 ng/ml Troponin I < 0.015 0-0.045 ng/ml Total Protein 6.6 6.4-8.2 gm/dl Albumin 3.3 3.4-5.0 gm/dl Globulin 3.3 2.5-4.0 gm/dl Albumin/Globulin Ratio 1.0 0.9-2 Creatine Kinase MB Ratio 0-3.0 Prothrombin Time 24.1 9.0-12.0 SECONDS Prothromb Time International Ratio 2.2 0.9-1.1 Activated Partial Thromboplast Time 31.7 21.0-31.0 SECONDS Partial Thromboplastin Ratio 1.2 Diagnostic Radiology CHEST ONE VIEW PORTABLE CLINICAL HISTORY: chest pain dyspnea COMPARISON STUDY: 05/05/2017 FINDINGS: Mild stable cardiomegaly. Diaphragms smooth. Slight chronic blunting left lateral costophrenic angle. Unchanging nodular density right upper lung. Slight increase in pulmonary vasculature. IMPRESSION: Early pulmonary vascular congestion. Moderate stable cardiomegaly. EKG SR 65, no q waves, no ST changes. Impression - H&P Impression Assessment and Plan 77 yo F with CAD presents with chest pain relieved with nitro 1. Chest pain-of concern with history, description and risk factors with associated symptoms today. She is currently stable and one nitro took her out of pain. CXR shows early congestion but lungs are clear and patient does not appear clinically vol overloaded. TRS is 3 (age>65, 3 RF for CAD, known CAD). Cont coumadin, statin, Toprol, Losartan, nitro prn, morphine prn. Serial cardiac enzymes overnight with cardiac monitoring. Cards consult in am. NPO p MN in case of procedure. 2. HTN-Per EMS she was normotensive 142/71. Cont current medication and monitor. 3. DMII-on insulin at home. Cont ISS/glargine and carb coverage. 4. KARLEE-poss dehydration. Giving one L and rechecking in am. Baseline creat 1.8 (CKD Stage III) 5. Anemia of chronic disease-at baseline. Monitor PRN 6. PAF-on coumadin and rate is controlled. INR therapeutic. Pt is currently in sinus rhythm 7. COPD-stable, cont home inhalers. 8. FRANCES-denies CPAP use DVT proph-coumadin Full Code-confirmed with patient on admission Dispo-to telemetry. Risk stratification determination by Cards team. DO Tom Zhao Hospitalist Level of Care Telemetry Advanced Directives Existing Living Will: No Existing Power of Head Of Physics: No Resuscitation Status FULL RESUSCITATION VTE Prophylaxis VTE Risk Assessment Done? Y/N: Yes Risk Level: Moderate Given or contraindicated: Warfarin (Coumadin) Physical Exam (per Admitting): General Appearance: no apparent distress, + obese Head: normocephalic, atraumatic Eyes: normal inspection, PERRL, sclerae normal ENT: normal ENT inspection, pharynx normal (MMM) Respiratory/Chest: lungs clear, normal breath sounds, no respiratory distress, no accessory muscle use, + pertinent finding (chest tenderness to palpation-significant) Cardiovascular: regular rate, rhythm, no edema, no gallop, no JVD, no murmur , normal peripheral pulses Abdomen/GI: normal bowel sounds, non tender, soft Back: normal inspection Extremities/Musculoskelatal: normal inspection, no calf tenderness, + pertinent finding (small ecchymotic area on L great toe, no drainage or ulceration present. 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, no motor/sensory deficits, alert , normal mood/affect, oriented x 3 Skin: normal color Hospital Course 77 yo F with CAD presents with chest pain relieved with nitro Recurrent Chest pain -Multiple admissions with chest pain in recent months without any ACS -Evaluated by the Inside Sales Assistant in the past and during this admission -No ACS this time and no further cardiac testing is indicated as per cardiology -Continue with current medications -Nitro PRN and frequent follow ups Occasional Confusion -Cleared during my examination -may have early Dementia -Evaluate as an OP HTN-controlled, cont current medical therapy. DMII-on insulin at home. Cont ISS/glargine and carb coverage. At goal KARLEE-poss dehydration vs diuretic use. Baseline creat 1.8 (CKD Stage III) Gave 1 L overnight but Lasix was given in the evening. Cont to hold diuretics and Losartan. Creatinine improved Anemia of chronic disease-at baseline. Monitor PRN PAF-on Coumadin and rate is controlled. INR therapeutic. Pt is currently in sinus rhythm. Hold Coumadin for possible procedure. COPD-stable, cont home inhalers. FRANCES-denies CPAP use DVT proph-Coumadin Full Code-confirmed with patient on admission DISPOSITION Discharge home today Total time spent on discharge = 35 minutes This includes examination of the patient, discharge planning, medication reconciliation, and communication with other providers. Discharge Instructions Date of Service May 12, 2017. Admission Reason for Admission: Atypical Chest Pain, Substernal Chest Pain Discharge Discharge Diagnosis / Problem: Recurrent Chest pain,CAD Discharge Goals Goal(s): Prevent Disease Progression Activity Recommendations Activity Limitations: resume your previous activity . Instructions / Follow-Up Instructions / Follow-Up Dr Waterman on 05/18/17 at 1:45 PM,Cardiology on 05/20/17 at 10:45 AM.Coag clinic notified Current Hospital Diet Patient's current hospital diet: AHA Diet (Heart Healthy), Diabetes Type 2 Diet Discharge Diet Recommended Diet: AHA Diet (Heart Healthy), Diabetes Type 2 Diet Fluid Restriction: 1500 ml (6 cups) Pending Studies Studies pending at discharge: no Laboratory Results Hemoglobin A1c Test 05/11/17 06:34 Range/Units Estimated Average Glucose 177 mg/dl Hemoglobin A1c 7.8 H 4.5-5.6 % Lipid Panel Test 05/11/17 06:34 Range/Units Triglycerides Level 114 0-150 mg/dl Cholesterol Level 132 0-200 mg/dl HDL Cholesterol 50 mg/dl Cholesterol/HDL Ratio 2.6 LDL Cholesterol, Calculated 59 mg/dl Medical Emergencies . Who to Call and When: Medical Emergencies: If at any time you feel your situation is an emergency, please call 911 immediately. . Non-Emergent Contact Non-Emergency issues call your: Primary Care Provider . Past History Medical & Surgical History: (1) Atypical chest pain (2) COPD exacerbation (3) Chronic kidney disease (4) Diabetes mellitus, type II (5) Hypertension (6) Sleep apnea (7) mood disorder related to medical conditions (8) Diabetic neuropathy (9) History of appendectomy (10) History of total left hip arthroplasty (11) H/O heart artery stent (12) Hx of removal of ovary . "Provider Documentation" section prepared by Jan Pacheco. . VTE Core Measure Inpt VTE Proph given/why not?: Warfarin (Coumadin) <Electronically signed by Jan Pacheco M.D.> Signed: 05/12/17 0493 Additional Copies To Kerry Waterman D.O.
[2017-05-13] MEDS ORDERED: METOLAZONE 2.5 MG TAB PO SCH (09:00)
== END 2017-05-12 16:04 | disposition home health service (06) | DRG 303 ==
LOC: EDBD 11:50 → C.EDB 11:51 → C.2T 16:20 → ENRESERV 16:41 → OBSVTOIN 05-11 16:00
PROVIDERS: ADMIT Hospitalist; ATTEND Hospitalist
DX: I25.10 Atherosclerotic heart disease of native coronary artery without angina pectoris (principal); N17.9 Acute kidney failure, unspecified; I27.82 Chronic pulmonary embolism; I50.32 Chronic diastolic (congestive) heart failure; I13.0 Hypertensive heart and chronic kidney disease with heart failure and stage 1 through stage 4 chronic kidney disease, or unspecified chronic kidney disease; I48.2 Chronic atrial fibrillation; Z79.01 Long term (current) use of anticoagulants; J44.9 Chronic obstructive pulmonary disease, unspecified; F03.90 Unspecified dementia, unspecified severity, without behavioral disturbance, psychotic disturbance, mood disturbance, and anxiety; Z95.818 Presence of other cardiac implants and grafts; N18.9 Chronic kidney disease, unspecified; E86.0 Dehydration; I12.9 Hypertensive chronic kidney disease with stage 1 through stage 4 chronic kidney disease, or unspecified chronic kidney disease; E11.43 Type 2 diabetes mellitus with diabetic autonomic (poly)neuropathy; D64.9 Anemia, unspecified; G47.33 Obstructive sleep apnea (adult) (pediatric); Z96.642 Presence of left artificial hip joint; Z79.4 Long term (current) use of insulin; Z87.891 Personal history of nicotine dependence

== ENCOUNTER → 2017-07-29 | Outpatient (CLI) | payer OTHER ==
[~2017-07-29] MED LIST changes: -BENZ100C7 PO; +DILT240C48 PO; +FLUT1INH3 INH; -LCTX PO; +PLMINS NEB; -UMEC1AER INH; +UTIBRON INH
--- NOTE | 2017-07-30 06:04 | PAP/PSG TECHNICIAN REPORT ---
[facility] Senior Manufacturing Test Engineer Polysomnogram Report Study name: None Report date: 07/30/2017 Study date: 07/29/2017 Referring Physician: Vera Viera PA-C, PA-C Name: EMILIA ALVARADO Interpreting Physician: Jesse Rodriguez D.O. Date of : 1940 Senior Manufacturing Test Engineer: Dorene Mccarthy [facility]. Sex: Female Age: 77 StudyType: PSG Weight: 245 lbs Height: 77 years, Height 5' 5" BMI: 40.77 Medications: Nitro Stat 0.4, Ipratropium Franklin 0.02%, Utibron Neohaler 27.5-15.6 MCG, Zoster, Levalbuterol 1.25 mg/3Ml, Coreg 6.25 mg, Coumadin 4 mg, Cozaar 50 mg, Cranberry 400 mg, Dexilant 60 mg, Furosemide 80 mg, Klor-Con 20 MEQ, Lantus 100 units, Lovastatin 40 mg, Novolog Patient History 77 yr. old female here for a diagnostic sleep study in room 6.Test started on room air. She is not sure why she is here tonight. Patient has a history of solitary pulmonary nodule, PE and Atrial Fibrillation, , pulmonary emphysema/ACOS, diabetic polyneuropathy, gastroparesis, HLD, GERD, and HTN. ESS 5/24. *Patient got lost finding the sleep lab. She found the location two times prior to the night of the study. A car following the patient was suspicious of her driving and called the police. She was escorted here by the police. She told them she had no idea where she was. Parameters Monitored NPSG: E1-M2, E2-M1, Fp1-M2, Fp2-M1, F3-M2, F4-M2, F4-M1, C3-M2, C4-M2, C4-M1, O1-M2, O2-M2, O2-M1, T3-M2, T4-M1, P3-M2, P4-M1, CHIN1, CHIN2, HR, EKG, Legs, PFLOW, SNOR, FLOW, CFLOW, Tidal Volume, THOR, ABDO, SpO2, PLTH, CPRESS, ETCO2 Wave, ETCO2, pH Sleep Architecture Sleep Stages Time at Lights Off 10:38:19 PM STAGES Time (min.) TST (%) Time at Lights On 5:50:19 AM Wake 64.0 -- Total Recording Time (TRT) 431.50 min. N1 21.0 6 Total Sleep Period (TSP) 426.0 min. N2 234.5 64 Total Sleep Time (TST) 367.5min. N3 35.5 10 Awake Time 64.0 min. REM 76.5 21 Wake after Sleep Onset 58.5 min. Sleep Efficiency (SE) 85 % Sleep Onset Latency (ANGEL) 6.0 min. Number of Stage 1 Shifts None Awakenings 10 Stage Changes 56 Number of REM periods 3 REM 76.5 21 REM Latency 109.5 min. NREM 291.0 79 Body Position Analysis Supine Right Left Side Prone Vertical Total Sleep Time (min.) 159.4 0.0 220.2 220.21 0.0 2.9 Total Sleep Time (%) 40% 0% 60% 60 0% N/A% Total Sleep Time REM (min.) 21.5 0.0 55.0 None 0.0 0.0 Total Sleep Time NREM (min.) 125.8 0.0 165.2 None 0.0 0.0 Intermittent Wake (min.) 12.1 0.0 49.0 None 0.0 2.9 Total Sleep Period (%) 37% None None None None None Arousals Myoclonus (PLM) * Events Count Index Events Count Index Spontaneous 0 0 Events Awake (PLMW) 49 45.9 Respiratory 1 0.2 Events Asleep w/ Arousal (PLMA) 17 2.8 PLM 17 3 Events Asleep w/o Arousal (PLMS) 236 38.5 Snoring 3 0 Total Asleep 253 41.3 Total 21 3 Total 302 42 Respiratory Analysis * CA OA MA CH H RERA Total Count 0 1 0 0 54 0 55 Index 0.0 0.2 0.0 0 8.8 0 9.0 Mean Duration 0.0 19.9 0.0 0.00 21.1 0.0 21.1 Longest Duration 0.0 19.9 0.0 0.00 0.0 0.0 49.5 Respiratory Event Summary Total Supine ~Supine Right Left Prone REM NREM Apneas Count 1 1 0 N/A 0 N/A 0 1 Index 0.2 0 0 N/A 0.0 N/A 0 0 Hypopneas (4% Desat) Count 54 15 39 N/A 39 N/A 47 7 Index 8.8 6.1 11 N/A 10.6 N/A 36.9 1.4 Apneas & All Hypopneas Count 55 16 39 N/A 39 N/A 47 8 Index 9.0 7 11 N/A 11 N/A 36.9 1.6 Respiratory Events (Dairy Science Teacher+All Hyp+RERA) Count 55 16 39 N/A 39 N/A 47 8 Index 9.0 7 11 N/A 10.6 N/A 36.9 1.6 Respiratory Related Arousal Count 1 16 0 N/A 0 N/A 0 1 Index 0.2 0 0 N/A 0 N/A 0 0 Snoring Analysis Supine Right Left Prone REM NREM Total Snore duration 31.5 min Snores count 55 N/A 1,809 N/A 236 1,628 1,864 Snore mean duration 1.0 Sec Snores index 22 N/A 493 N/A 185.1 335.7 304.3 TST with snoring (%) 8.6% SpO2 Analysis Total REM NREM Awake <50% 0.0 min. 0.0 min. 0.0 min. 0.0 min. 51 - 60% 0.0 min. 0.0 min. 0.0 min. 0.0 min. 61 - 70% 0.0 min. 0.0 min. 0.0 min. 0.0 min. 71 - 80% 0.4 min. 0.0 min. 0.1 min. 0.3 min. 81 - 90% 121.3 min. 26.5 min. 90.4 min. 4.4 min. 91 - 100% 287.4 min. 50.0 min. 199.2 min. 38.2 min. Average 92 91 92 94 Minimum SpO2 60 82 77 60 Desaturation Event Index 8.6 36.1 1.6 7.5 # Desat. Events below 89% 34 32 1 1 Time(%) with Saturation below 89% 5.3 3.3 1.5 0.4 Time(min.) with Saturation below 89% 21.5 13.5 6.3 1.8 Heart Rate Analysis End Tidal CO2 Analysis Min (bpm) Max (bpm) Average (bpm) TSP (mins) % of TSP Awake 31 136 72 Above 55 mmHg 0.0 0.0 NREM 57 76 63 50-55 mmHg 0.0 0.0 REM 59 79 67 45-50 mmHg 0.0 0.0 Overall 57 79 64 40-45 mmHg 15.4 4.2 35-40 mmHg 243.1 66.1 30-35 mmHg 53.7 14.6 Average ETCO2 0.3 Supplemental O2 Values Minimum O2 level: None Value Start Time End Time Senior Manufacturing Test Engineer Comments MS. Alvarado slept in the left and supine positions. Test was on room air. Cardiac arrhythmia and PLMs noted. No bruxism noted. Snoring was noted and scored as a 3.5 on a scale of 0 through 5. (0=no snoring, 5=snoring loud enough to be heard through a closed door or down the arora way) MS. Alvarado woke to use the restroom two times during the night. When she woke up and had to use the restroom the first time, she attempted to get out of bed without getting unhooked. She stated she didn't know where she was. She was told she was having a sleep study and she said she didn't know that. After using the restroom she asked when all the wires were put on her. She again stated she didn't know she was having a sleep test. MS. Alvarado stated, I think I slept. The final report will be interpreted and signed by a sleep physician. The completed physician report will then be placed in the patient medical record. Therapy (cm H2O) 0 TIB (min.) 431.5 TST (min.) 367.5 Sleep Onset (min.) 6.0 REM Onset From Sleep (min.) 109.5 Sleep Efficiency % 85 Wakefulness (%) 15 Wakefulness (min.) 64.0 NREM 1 (%) 6 NREM 1 (min.) 21.0 NREM 2 (%) 64 NREM 2 (min.) 234.5 NREM 3 (%) 10 NREM 3 (min.) 35.5 REM (%) 21 REM (min.) 76.5 # Arousals 21 Arousal Index 3 # Snore 1,864 Snore Index 304.3 AHI 9.0 AHI Supine 7 AHI Non-Supine 11 NREM AHI 1.6 REM AHI 36.9 RDI 9.0 # Obstructive Apnea 1 # Central Apnea 0 # Mixed Apnea 0 # Hypopneas 54 RERAs 0 Total Respiratory Events 58 Time Below SpO2 89% (min.) 19.7 Mean NREM SpO2 (%) 92 Mean REM SpO2 (%) 91 Mean Sleep SpO2 (%) 92 Min NREM SpO2 (%) 77 Min REM SpO2 (%) 82 Position Supine (min.) 159.4 Position Non-supine (min.) 220.2 LM Index Sleep 41.3 LM Index NREM 47.6 LM Index REM 17.3 Mean Heart Rate (bpm) 64 Min Heart Rate (bpm) 57
--- NOTE | 2017-08-03 08:00 | Sleep Study ---
Sleep Study Report Date of Service: 07/29/2017 Sleep Study Report Clinical data: The patient is a 77-year-old female who has a BMI of 40.77. She has a history of atrial fibrillation and shortness of Breath and fatigue. This was an in-lab overnight polysomnography. The patient has an Wetmore score of 5 out of a possible 24. Sleep architecture: The total sleep period was 426 minutes. The total sleep time was 367.5 minutes. Sleep efficiency was mildly reduced to 85%. The sleep latency was 6 minutes. Wake after sleep onset was 58.5 minutes. REM latency was normal at 109.5 minutes. There were 3 REM periods during the night. Sleep consisted of stage N1 6%, stage N2 64%, stage N3 10%, stage REM 21%. Arousal data: The patient had a total of 21 arousals including 1 respiratory arousal, 17 PLM arousals, and 3 snoring arousals. The arousal index was only 3. PLM data: Patient had a total of 253 periodic limb movements for a PLM index of 41.3. There were 17 arousals associated with limb movements for a PLM arousal index of 2.8. EKG: The underlying cardiac rhythm was normal sinus. She had a moderate number of premature atrial contractions. The cardiac rates 57-79 beats per minute. The average heart rate was 64 beats per minute. Respiratory data: The patient had a total of 55 respiratory events including 1 obstructive apnea and 54 hypopneas. Hypopneas were scored according to the 4% desaturation rule. The longest apnea was 19.9 seconds. The mean duration of the hypopneas was 21.1 seconds. The apnea-hypopnea index was 9.0. This reflects mild sleep apnea. The majority of the events occurred during REM sleep. The apnea- hypopnea index during REM was 36.9. Oximetry data: The average saturation for the night was 92%. The minimum saturation was 60%. That likely was technical. There was a total of 21.5 minutes with saturations less than 89%. Fabric Stretcher comments: The patient slept in the left and supine positions. The study was done on room air. Cardiac arrhythmia and PLMS noted. No bruxism noted. Snoring was noted and scored as a 3.5 on a scale of 0 through 5. The patient awaken to use the restroom 2 times during the night. When she woke up and had to use the restroom the 1st time she attempted to get out of bed without getting on hooked. She stated she did not know where she was. She was told she was having a sleep study and she said she did not know that. After using the restroom she again asked when all the wires were put on. She again stated she did not know she was having a sleep study. Impressions: 1. Obstructive sleep apnea-mild 2. Periodic limb movement disorder 3. Cardiac arrhythmia-PACs Comments: The patient had a mild decrease in sleep efficiency. Sleep architecture was near normal. She had mild sleep apnea as noted. Most of the events occurred during REM sleep. She had a significant number of limb movements. There were relatively few arousals however associated with limb movements. Patient obviously had confusion during the nighttime of the study. Recommendations: 1. Consideration is given to a trial of nasal CPAP. This could be accomplished by referral for an in-lab CPAP titration. Alternatively she could be treated with auto CPAP. 2. Clinical correlation is required to evaluate the status of the limb movement disorder. Typically the underlying obstructive sleep apnea would be treated 1st. 3. Patient has a severe elevation of body mass index of 40.77. A weight reduction program is advised. 4. Suggest checking a serum ferritin level to determine if she might have iron deficiency contributing to the limb movement disorder. A ferritin level less than 50 would typically be treated with iron supplementation. Copies To 1: Jesse Rodriguez DO; Vera Viera PA-C; Kerry Waterman ,D.O.
== END | disposition home or self-care (01) ==
LOC: C.NEUR 20:00
PROVIDERS: ATTEND Physician Assistant
DX: R06.83 Snoring (principal)

== ENCOUNTER 2017-08-10 07:58 | Inpatient (IN) | payer OTHER ==
[~2017-08-10] VITALS: Ht 160 cm; Wt 113.0 kg
[~2017-08-10 07:58] MED LIST changes: -DILT240C48 PO; -UTIBRON INH
[2017-08-10 11:30] VITALS: BP 162/56; PULSE 75; TEMP 36.6; O2SAT 100; BMI 42.9
[2017-08-10] MEDS ORDERED: ACETAMINOPHEN 325 MG TAB PO PRN (12:00)
[2017-08-10] MEDS ORDERED: NITROGLYCERIN 0.4 MG SL PER TAB CHARGE SL PRN (12:00)
[2017-08-10 12:40] LABS: HEMATOCRIT 32.1 % (37-47); HEMOGLOBIN 10.7 g/dL (12.0-16.0); MEAN CORPUSCULAR HEMOGLOBIN 31.7 pg (25-34); RED CELL DISTRIBUTION WIDTH CV 13.6 % (11.5-14.5); RED CELL DISTRIBUTION WIDTH SD 47.4 fL (36.4-46.3); WHITE BLOOD COUNT 4.57 K/uL (4.8-10.8)
[2017-08-10 12:54] LABS: MEAN CORPUSCULAR HGB CONC 33.3 g/dl (32-36); MEAN PLATELET VOLUME 10.1 fL (7.4-10.4); PLATELET COUNT 91 K/uL (130-400)
[2017-08-10 12:57] LABS: PTT PATIENT 26.9 SECONDS (21.0-31.0)
[2017-08-10 13:02] LABS: BASO % 0.2 %; BASO ABS # 0.01 K/uL (0-0.2); EOS ABS # 0.09 K/uL (0-0.5); IG# 0.01 K/uL (0.00-0.02); LYMPH % 25.4 %; LYMPH ABS # 1.16 K/uL (1.2-3.4); MONO % 8.8 %; NEUT % 63.4 %
[2017-08-10 13:09] LABS: CALCIUM 9.4 mg/dl (8.5-10.1); CREATININE 2.14 mg/dl (0.60-1.20); TOTAL PROTEIN 6.2 gm/dl (6.4-8.2)
[2017-08-10] MEDS ORDERED: UTIBRON INH (13:16)
[2017-08-10] MEDS ORDERED: DILT240C48 PO (13:16)
[2017-08-10] MEDS ORDERED: GLUCAGON FOR INJ 1 MG VIAL SQ PRN (13:30)
[2017-08-10] MEDS ORDERED: GLUCOSE 40% GEL 15 GM TUBE PO PRN (13:30)
[2017-08-10] MEDS ORDERED: GLUCOSE 10 TABS/TUBE PO PRN (13:30)
[2017-08-10] MEDS ORDERED: LEVALBUTEROL 1.25MG/3ML NEB INH PRN (13:30)
[2017-08-10] MEDS ORDERED: DEXTROSE 50% 50 ML SYR IV PRN (13:30)
[2017-08-10] MEDS ORDERED: PHARMACY GLYCEMIC MGMT CONSULT PRN (13:58)
[2017-08-10 14:32] LABS: INR 1.2 (0.9-1.1)
--- NOTE | 2017-08-10 14:50 | Medical Consult ---
Consultation Date of Consultation: Aug 10, 2017. Attending Physician: Chan Do M.D. Reason for Consultation: Medical Management History of Present Illness 77 year old female who was directly admitted under cardiology service for evaluation of shortness of breath. Patient has been having exertional shortness of breath for almost 2 years. She has been following with pulmonary and cardiology. During a recent clinic visit with pulmonary, a right heart cath was suggested. Patient has history of COPD and diastolic CHF with a hyperdynamic EF. Patient also has been having memory problems recently. She continues to drive and was actually pulled over the the police recently due to swerving. Patient was found to be confused. Patient reports that she feels she has some mild trouble with short term memory. She denies slurred speech, drooling, unilateral weakness, numbness or tingling. No headache or blurred vision. She reports shortness of breath with minimal exertion. Shortness of breath has been progressively getting worse over the past two years. She denies chest pain and palpitations. No lightheadedness, dizziness, diaphoresis, or syncopal events. She reports a good appetite. No abdominal pain, nausea, vomiting, or diarrhea. She denies fever and chills. No urinary symptom. At the time of my exam, patient is sitting up in the chair, no acute distress. Past Medical/Surgical History Medical Problems: (1) Acute kidney injury Status: Acute (2) KARLEE (acute kidney injury) Status: Acute (3) Anxiety attack Status: Acute (4) Atypical chest pain Status: Acute (5) Bronchitis Status: Acute (6) Candidal intertrigo Status: Acute (7) COPD exacerbation Status: Acute (8) COPD exacerbation Status: Acute (9) Hyperventilation Status: Acute (10) Left sided chest pain Status: Acute (11) Pneumonia Status: Acute (12) Shortness of breath Status: Acute (13) Substernal chest pain Status: Acute (14) Substernal chest pain Status: Acute (15) UTI (urinary tract infection) Status: Acute (16) Weakness Status: Acute Family History FH: cancer MOTHER (cervical) BROTHER (skin, testicular) Social History Smoking Status: Former Smoker Alcohol Use: none Allergies Coded Allergies: Codeine (Verified Allergy, Unknown, UNKNOWN, 05/10/17) INFO FROM PT Aspirin (Verified Adverse Reaction, Intermediate, (ULCER), 05/10/17) Venlafaxine (Verified Adverse Reaction, Intermediate, DROWINESS/ CONFUSION , 05/10/17) Cephalexin (Verified Adverse Reaction, Mild, DROWSINESS, UNABLE TO DRIVE, UPSET STOMACH, 05/10/17) Oxycodone (Verified Adverse Reaction, Mild, n/v, 05/10/17) gmg Home Medications Lasix (Furosemide) 40 Mg Tab 1 Tab PO BID 30 Days Cartia Xt (Diltiazem Hcl Coated Beads) 240 Mg Cap 120 Mg PO DAILY 30 Days [Utibron] INH UD Pulmicort Respules 0.5MG/2ML (Budesonide (Inhalation)) 0.5 Mg/2 Ml Akilah 1 Vial NEB BID Zaroxolyn (Metolazone) 2.5 Mg Tab 2.5 Mg PO WK Wednesdays Cozaar (Losartan Potassium) 100 Mg Tab 100 Mg PO DAILY Oxygen Gas 3.5 Liters NA HS Glucose (Glucose-Vitamin C) 1 Chw Chw 1 Tab PO UD PRN Coumadin (Warfarin Sodium) 2 Mg Tab 2 Mg PO 3XWK MON,WED, FRI On hold Ferrous Sulfate 325 Mg Tab 325 Mg PO DAILY Jantoven (Warfarin Sodium) 4 Mg Tab 4 Mg PO 4XWK SUN,TUES,THURS,SAT 0n hold Isosorbide Mononitrate ER (Isosorbide Mononitrate) 60 Mg Tab 60 Mg PO DAILY Rocaltrol (Calcitriol) 0.5 Mcg Cap 0.5 Mcg PO DAILY Novolog (Insulin Aspart) 100 Units/Ml Inj ACHS SLIDING SCALE Mevacor (Lovastatin) 40 Mg Tab 80 Mg PO HS Lantus (Insulin Glargine) 100 Unit/Ml Inj 11 Units SQ EVENING MEAL Lantus (Insulin Glargine) 100 Unit/Ml Inj 25 Units SQ QAM Metoprolol Succinate ER (Metoprolol Succinate) 25 Mg Tabcr 12.5 Mg PO DAILY Levalbuterol Hcl 1.25 Mg/3 Ml Neb 3 Ml INH Q4 PRN Vesicare (Solifenacin) 5 Mg Tab 5 Mg PO DAILY Nitrostat (Nitroglycerin) 0.4 Mg Sub 0.4 Mg UT PRN PRN Omeprazole 20 Mg Tab 20 Mg PO DAILY Current Inpatient Medications Current Inpatient Medications Medications (Trade) Dose Ordered Sig/Rose Route Start Time Stop Time Status Last Admin Dose Admin Acetaminophen (Tylenol Tab) 650 mg Q4H PRN PO 08/10/17 12:00 09/09/17 11:59 Nitroglycerin (Nitrostat Tab) 0.4 mg UD PRN SL 08/10/17 12:00 09/09/17 11:59 Insulin Glargine (Lantus Solostar Pen) 15 units Q12 SC 08/10/17 21:00 09/09/17 20:59 UNV Insulin Aspart (novoLOG ASPART) SLIDING SCALE If C... ACHS SC 08/10/17 16:15 09/09/17 16:14 UNV Glucose (Glucose 40% Gel) 15-30 GRAMS 15 GRAMS... UD PRN PO 08/10/17 13:30 09/09/17 13:29 UNV Glucose (Glucose Chew Tab) 4-8 Tablets 4 Tabl... UD PRN PO 08/10/17 13:30 09/09/17 13:29 UNV Dextrose (Dextrose 50% 50ML Syringe) 25-50ML OF 50% DW IV FOR... UD PRN IV 08/10/17 13:30 09/09/17 13:29 UNV Glucagon (Glucagon Inj) 1 mg UD PRN SQ 08/10/17 13:30 09/09/17 13:29 UNV Miscellaneous Information (Consult Glycemic Management Pharmacy) 1 ea ONE STAT N/A 08/10/17 13:22 08/10/17 13:23 UNV Budesonide (Pulmicort Respules 0.5MG/ 2ML Neb Soln) 0.5 mg BID INH 08/10/17 21:00 09/09/17 20:59 UNV Diltiazem HCl (Cardizem Cd Cap) 120 mg DAILY PO 08/11/17 09:00 09/10/17 08:59 UNV Ferrous Sulfate (Feosol Tab) 325 mg DAILY PO 08/11/17 09:00 09/10/17 08:59 UNV Isosorbide Mononitrate (Imdur Ext Rel Tab) 60 mg DAILY PO 08/11/17 09:00 09/10/17 08:59 UNV Levalbuterol (Xopenex 1.25MG/ 3ML Neb) 3.75 mg Q4 PRN INH 08/10/17 13:30 09/09/17 13:29 UNV Losartan Potassium (coZAAR TAB) 100 mg DAILY PO 08/11/17 09:00 09/10/17 08:59 UNV Metoprolol Succinate (Toprol Xl Tab) 12.5 mg DAILY PO 08/11/17 09:00 09/10/17 08:59 UNV Non-Formulary Medication (Calcitriol (Rocaltrol)) 0.5 mcg DAILY PO 08/11/17 09:00 09/10/17 08:59 UNV Non-Formulary Medication (Lovastatin (Mevacor)) 80 mg HS PO 08/10/17 21:00 09/09/17 20:59 UNV Non-Formulary Medication (Omeprazole ) 20 mg DAILY PO 08/11/17 09:00 09/10/17 08:59 UNV Non-Formulary Medication (Solifenacin (Vesicare)) 5 mg DAILY PO 08/11/17 09:00 09/10/17 08:59 UNV Review of Systems ROS per HPI, all other systems reviewed and negative Physical Exam Date Time Temp Pulse Resp B/P (MAP) Pulse Ox O2 Delivery O2 Flow Rate FiO2 08/10/17 11:30 36.6 75 20 162/56 100 Room Air General Appearance: WD/WN, no apparent distress Head: normocephalic, atraumatic Eyes: normal inspection, EOMI, sclerae normal ENT: hearing grossly normal, + pertinent finding (mucous membranes moist) Neck: supple, no JVD, trachea midline Respiratory/Chest: no respiratory distress, + decreased breath sounds Cardiovascular: regular rate, rhythm, normal peripheral pulses, + pertinent finding (trace edema BLLE) Abdomen/GI: normal bowel sounds, non tender, soft, no organomegaly Extremities/Musculoskelatal: normal inspection, no calf tenderness, normal capillary refill Neurologic/Psych: no motor/sensory deficits, alert, normal mood/affect, oriented x 3 Skin: + pertinent finding (dry, reddened, flakey skin BLLE) Laboratory Results Last 24 Hours Test 08/10/17 12:15 08/10/17 12:21 08/10/17 12:28 08/10/17 13:22 Bedside Glucose 214 mg/dl 225 mg/dl White Blood Count 4.57 K/uL Red Blood Count 3.38 M/uL Hemoglobin 10.7 g/dL Hematocrit 32.1 % Mean Corpuscular Volume 95.0 fL Mean Corpuscular Hemoglobin 31.7 pg Mean Corpuscular Hemoglobin Concent 33.3 g/dl Platelet Count 91 K/uL Mean Platelet Volume 10.1 fL Neutrophils (%) (Auto) 63.4 % Lymphocytes (%) (Auto) 25.4 % Monocytes (%) (Auto) 8.8 % Eosinophils (%) (Auto) 2.0 % Basophils (%) (Auto) 0.2 % Neutrophils # (Auto) 2.90 K/uL Lymphocytes # (Auto) 1.16 K/uL Monocytes # (Auto) 0.40 K/uL Eosinophils # (Auto) 0.09 K/uL Basophils # (Auto) 0.01 K/uL RDW Standard Deviation 47.4 fL RDW Coefficient of Variation 13.6 % Immature Granulocyte % (Auto) 0.2 % Immature Granulocyte # (Auto) 0.01 K/uL Erythrocyte Sedimentation Rate 18 mm/hr Activated Partial Thromboplast Time 26.9 SECONDS Partial Thromboplastin Ratio 1.0 Sodium Level 138 mmol/L Potassium Level 4.0 mmol/L Chloride Level 101 mmol/L Carbon Dioxide Level 30 mmol/L Anion Gap 7.0 mmol/L Blood Urea Nitrogen 50 mg/dl Creatinine 2.14 mg/dl Est Creatinine Clear Calc Drug Dose 25.4 ml/min Estimated GFR () 24.7 Estimated GFR (Non- 21.3 BUN/Creatinine Ratio 23.5 Random Glucose 249 mg/dl Calcium Level 9.4 mg/dl Total Bilirubin 0.5 mg/dl Direct Bilirubin 0.2 mg/dl Aspartate Amino Transf (AST/SGOT) 15 U/L Alanine Aminotransferase (ALT/SGPT) 23 U/L Alkaline Phosphatase 92 U/L Pro-B-Type Natriuretic Peptide 1240 pg/ml Total Protein 6.2 gm/dl Albumin 3.0 gm/dl Globulin 3.2 gm/dl Albumin/Globulin Ratio 0.9 Thyroid Stimulating Hormone (TSH) 1.570 uIu/ml Assessment & Plan SHORTNESS OF BREATH - directly admitted to [facility] for right sided heart cath tomorrow - has been having progressive shortness of breath for 2 years - likely multifactorial due to underlying COPD, diastolic CHF, deconditioning - planned right heart cath to complete work up - recent outpatient sleep study showed mild FRANCES - nasal CPAP recommended; patient has not had follow up for these results yet - follows with Dr. Hernandez / Vera Viera PA-C with pulmonary EPISODIC CONFUSION - brain MRI ordered by cardiology - consider neuro consult pending results - ? due to untreated FRANCES and/or developing Alzheimer's or dementia CAD - appears stable, no reports of chest pain - continue beta joe, nitrate, and statin DIASTOLIC CHF - currently euvolemic - echo 12/2016 - EF > 70%, grade I diastolic dysfunction, mild TR - holding diuretics due to cath tomorrow HTN - BP controlled, continue losartan, isosorbide, and metoprolol DM - hgb a1c 6.8 03/2017 - on Lantus + Novolog SSI at home; continue with inpatient adjustments CKD STAGE IV - baseline creat runs ~ 2.0 - creat noted to be 2.1 today - continue to monitor, avoid nephrotoxic agents when able DVT PROPHYLAXIS - SCDs due to procedure tomorrow Thank you for this consultation. We will follow the patient with you during their hospital stay. You can reach a member of the [facility] Hospitalist Team 23/03 via pager @ . ADDENDUM: This is a 77 year old female with a PMH of insulin dependent DM2, diastolic CHF , COPD, CAD, paroxysmal A. Fib on long-term anticoagulation, CKD stage IV - presents secondary to worsening shortness of breath. She is directly admitted to the cardiology service for a possible R heart cath for further diagnostic purposes. She states that the shortness of breath is intermittent without palpitations or chest pain. Currently, while seated - no shortness of breath noted. Besides the intermittent shortness of breath, patient has been having confusion/forgetfulness issues. She has had issues remembering why or where she was driving to - to the point where a police sergeant had to escort her to her sleep study. Currently, she is oriented x3 Plan: Shortness of Breath Right Heart Cath in AM check echo COPD, Diastolic CHF, FRANCES and possibly obesity hypoventilation playing a part pulmonary consulted Paroxysmal A. Fib currently NSR cont. b-joe restart anticoagulation as per cardiology afterwards for her A. Fib monitor in tele Confusion/Forgetfulness check a brain MRI IDDM2 Insulin 15 units q12 for now - she takes a higher dose at home, monitor BSGs with her NPO status after midnight for cath on 08/11 - insulin sliding scale last ha1c = 6.8% in March 2017 CKD stage IV creat close to baseline around 2.0-2.1 no urinary symptoms, UA noted; urine culture pending when able, avoid nephrotoxic agents DVT ppx SCDs for procedure in AM - restart anticoagulation when okay with cardiology FULL CODE
--- NOTE | 2017-08-10 15:10 | Pharmacy Progress Note ---
Glycemic Control Intl Consult Date of Service Aug 10, 2017. Scope Glycemic Pharmacist consulted by Maria T King on 08/10/17 for glycemic control and to write orders per [facility] inpatient glycemic control protocol Objective Weight (Kilograms): 109.800 Accuchecks BSG (last 24hrs): Test 08/10/17 12:21 08/10/17 12:28 08/10/17 13:22 Bedside Glucose 214 mg/dl (70-90) 225 mg/dl (70-90) Random Glucose 249 mg/dl (70-99) Laboratory Data (last 24hrs) Test 08/10/17 12:28 Anion Gap 7.0 mmol/L BUN/Creatinine Ratio 23.5 Blood Urea Nitrogen 50 mg/dl Creatinine 2.14 mg/dl Potassium Level 4.0 mmol/L Sodium Level 138 mmol/L White Blood Count 4.57 K/uL Red Blood Count 3.38 M/uL Hemoglobin 10.7 g/dL Hematocrit 32.1 % Mean Corpuscular Volume 95.0 fL Mean Corpuscular Hemoglobin 31.7 pg Mean Corpuscular Hemoglobin Concent 33.3 g/dl Platelet Count 91 K/uL Mean Platelet Volume 10.1 fL Neutrophils (%) (Auto) 63.4 % Lymphocytes (%) (Auto) 25.4 % Monocytes (%) (Auto) 8.8 % Eosinophils (%) (Auto) 2.0 % Basophils (%) (Auto) 0.2 % Neutrophils # (Auto) 2.90 K/uL Lymphocytes # (Auto) 1.16 K/uL Monocytes # (Auto) 0.40 K/uL Eosinophils # (Auto) 0.09 K/uL Basophils # (Auto) 0.01 K/uL HbA1c 7.8% on 05/11/17 Recent Pertinent Medications Outpatient Anti-diabetic Regimen: * Lantus 25 units in AM + 11 units in PM * NovoLog per SSI Assessment & Plan ASSESSMENT: * 77yo T2DM female well known to pharmacy from previous admissions/glycemic consults * Typically patient requires less insulin for admission as compared to outpatient dosing. * Pt typically requires ~ 50-60 units/day when NOT on steroids * Will continue adjustments per hospitalist and titrate based on BSG trends. Current regimen is ~ 60 units/day PLAN FOR INPATIENT GLYCEMIC CONTROL: * Basal insulin * Lantus 15 units SQ BID * Bolus insulin * NovoLog per scale ACHS or Q6hrs while NPO * Goal Range: Low 110 mg/dL - High 140 mg/dL * Correction Factor: 20 mg/dL/unit * Nutritional / Prandial insulin per carb ratio of 1 unit per 7 grams CHO consumed * Please note that the plan above was derived based on current level of insulin resistance and hospital stress. These recommendations are appropriate for inpatient admission only. Plan of care upon discharge will need to be reassessed to avoid potential outpatient hypo/hyperglycemia. Thank you.
[2017-08-10 15:57] VITALS: BP 188/73; PULSE 85; TEMP 36.4; O2SAT 99
--- NOTE | 2017-08-10 16:51 | ECHOCARDIOGRAM REPORT ---
*NOTICE TO RECEIVING REPUBLICAN AGENCY This information is strictly Confidential and protected under [place] law. [place] law prohibits you from making any further disclosure of this information unless further disclosure is expressly permitted by the written consent of the person to whom it pertains or is authorized by law. A general authorization for the release of medical or other information is not sufficient for this purpose. Hospital accepts no responsibility if the information is made available to any other person, INCLUDING THE PATIENT. Interpretation Summary * Name: EMILIA ALVARADO Study Date: 08/10/2017 02:05 PM BP: 162/56 mmHg * Patient Location: .2E\S\E203\S\1 HR: 75 * : 1940 (M/d/yyyy) Gender: Female Height: 63 in * Age: 77 yrs Ethnicity: CA Weight: 242 lb * Ordering Physician: Chan Do * Referring Physician: Chan Do * Performed By: Kirsten Rodriguez RCS * * Reason For Study: Pulmonary Hypertension * BSA: 2.1 m2 * -- Conclusions -- * The left ventricular cavity is small. * There is moderate concentric left ventricular hypertrophy. * Left ventricular systolic function is normal. * The left ventricular wall motion is normal. * Ejection Fraction = 65-70%. * Grade I diastolic dysfunction, (abnormal relaxation pattern). * There is trace mitral regurgitation. * There is mild tricuspid regurgitation. * Right ventricular systolic pressure is elevated at 30-40mmHg. Procedure Details * A complete two-dimensional transthoracic echocardiogram was performed (2D, M-mode, Doppler and color flow Doppler). Left Ventricle * The left ventricular cavity is small. * There is moderate concentric left ventricular hypertrophy. * Ejection Fraction = 65-70%. * Left ventricular systolic function is normal. * The left ventricular wall motion is normal. Right Ventricle * The right ventricle is normal in size and function. Atria * The left atrium is moderately dilated. * Right atrial size is normal. * The interatrial septum is intact with no evidence for an atrial septal defect. * Injection of contrast documented no interatrial shunt. Mitral Valve * There is mild mitral annular calcification. * The mitral valve is normal. * There is no mitral valve stenosis. * There is trace mitral regurgitation. Tricuspid Valve * The tricuspid valve anatomy is normal. * There is no tricuspid stenosis. * There is mild tricuspid regurgitation. * Right ventricular systolic pressure is elevated at 30-40mmHg. Aortic Valve * The aortic valve is trileaflet. * No hemodynamically significant valvular aortic stenosis. * No aortic regurgitation is present. Pulmonic Valve * The pulmonic valve is not well visualized. Great Vessels * The aortic root is normal size. Pericardium/Pleural * There is no pericardial effusion. Great Vessels * Normal inferior vena cava diameter and respiratory variation suggests normal central venous pressure. Left Ventricular Diastolic Function * Grade I diastolic dysfunction, (abnormal relaxation pattern). MMode 2D Measurements and Calculations IVSd 1.2 cm IVSs 1.4 cm LVIDd 4.3 cm LVIDs 2.8 cm LVPWd 1.2 cm LVPWs 1.6 cm IVS/LVPW 1.0 FS 34.6 % EDV(Teich) 83.7 ml ESV(Teich) 30.1 ml EF(Teich) 64.0 % EDV(cubed) 80.2 ml ESV(cubed) 22.5 ml EF(cubed) 72.0 % % IVS thick 17.4 % % LVPW thick 33.8 % LV mass(C)d 181.7 grams LV mass(C)dI 86.7 grams/m\S\2 LV mass(C)s 143.4 grams LV mass(C)sI 68.4 grams/m\S\2 SV(Teich) 53.6 ml SI(Teich) 25.5 ml/m\S\2 SV(cubed) 57.8 ml SI(cubed) 27.6 ml/m\S\2 Ao root diam 3.3 cm Ao root area 8.5 cm\S\2 ACS 1.7 cm LA dimension 4.8 cm asc Aorta Diam 2.8 cm LA/Ao 1.5 EDV(MOD-sp4) 111.0 ml ESV(MOD-sp4) 44.0 ml EF(MOD-sp4) 60.4 % EDV(MOD-sp2) 112.0 ml ESV(MOD-sp2) 43.0 ml EF(MOD-sp2) 61.6 % SV(MOD-sp4) 67.0 ml SI(MOD-sp4) 32.0 ml/m\S\2 SV(MOD-sp2) 69.0 ml SI(MOD-sp2) 32.9 ml/m\S\2 Doppler Measurements and Calculations MV E max mayco 109.9 cm/sec MV A max mayco 138.1 cm/sec MV E/A 0.80 MV P1/2t max mayco 117.6 cm/sec MV P1/2t 103.7 msec MVA(P1/2t) 2.1 cm\S\2 MV dec slope 332.2 cm/sec\S\2 MV dec time 0.32 sec Ao V2 max 176.2 cm/sec Ao max PG 12.4 mmHg Ao max PG (full) 2.8 mmHg LV V1 max PG 9.6 mmHg LV V1 max 154.8 cm/sec PA V2 max 103.4 cm/sec PA max PG 4.3 mmHg TR max mayco 247.4 cm/sec
[2017-08-10] MEDS: INSULIN ASPART 100 UNITS/ML 3 ML PEN SC SCH ×2 (17:26→21:18)
[2017-08-10] MEDS: INSULIN GLARGINE SOLOSTAR 100 UNITS/ML 3 ML PEN SC SCH (17:26)
[2017-08-10] MEDS: BUDESONIDE 0.5 MG/2 ML VIAL (PULMICORT) INH SCH (19:24)
[2017-08-10 19:27] VITALS: PULSE 82; O2SAT 92
[2017-08-10] MEDS: DILTIAZEM HCL 120 MG CAPCR PO SCH (19:50)
--- NOTE | 2017-08-10 19:58 | Pulmonary Consultation ---
History General Date of Service: Aug 10, 2017. Stated Complaint: Progressive dyspnea on exertion HPI The patient is a 77 year old female who presents to [facility] with complaints of SOB. The patient's primary care provider is Kerry Waterman D.O.. 77y/o female admitted via cardiology for progressive SOB/LAUREANO since early 2015. She has a PmHx includes solitary pulmonary nodule (8mm RUL-stable on CT 2006, 2013, ,08/2014, 11/2016), h/o PE & atrial fibrillation (warfarin held 2/2 GIB with associated anemia), nocturnal O2: 2LPM, mild emphysema/ borderline ACOS, diabetic polyneuropathy, gastroparesis, HLD, GERD, hypertension, paroxysmal atrial fibrillation (+ AC). Former tobacco (quit 1995 - 0.8-ppd x 38-years), recurrent UTIs. The patient notes increasing fatigue with memory issues/ confusion. During our interview the patient did note some mild dull right upper anterior lateral chest pain which is reproducible with palpation. Denies: new onset weakness/unilateral, slurred speech, aspiration, blurred vision, abd pain, fever, chills, n/v or unintentional weight loss, dysuria Work-Up: EKG: no acute changes when compared to 05/12/17, NSR Cardiac Echo (08/10/2017) LV: EF: 65-70%, moderate LVH RV: TAPSE >1.5cm Left Atrium: moderately dilation Grade 1 Diastolic Dysfunction No-Intra Atrial Shunt noted via Contrast RVSP=30-40mmHg IVC: WNL Serum WBC: 5K PLT: 91K H/H: ESR: =18 INR: 1.2 Co2: 30 BUN: 50 Cr: 2.14 T Pro: <6.2 Alb: <3.0 UA: > Leukocyt Esterase, > WBC PFT (07/07/17) FEV1/FVC: 71 FEV1: 1.61/78% FVC: 2.28/81% RV/TLC: =45 DLCO: 80% PFT (01/28/12) FEV1/FVC: 67 FEV1: 1.53/71% FVC: 2.30/79% RV/T DLCO: 70% Sleep Study (07/29/17) Mild FRANCES Periodic Limb Movement Disorder Cardiac arrythmias PAC Longest apnea was 19.9 seconds AHI: 9.0 6 min Walk Study (03/05/17) Baseline O2 needs: Initially, no supplemental oxygen was needed Baseline VS and Tawana scale: HR: 59, O2 sat: 99% 1 min VS and Tawana Scale: HR: 86, O2 sat: 99% 2 min VS and Tawana Scale: HR: 89, O2 sat: 98% 3 min VS and Tawana Scale: HR: 91, O2 sat: 98% 4 min VS and Tawana Scale: HR: 91, O2 sat: 98% 5 min VS and Tawana Scale: HR: 98, O2 sat: 99% 6 min VS and Tawana Scale: HR: 75, O2 sat: 98% Post-Intervention: the patient walked a total of 480 feet. The patient complains of dyspnea and fatigue. Holter Monitor (10/18/14) Rare PVC and PAC Atrial Tach longest run at 7 beats Episodes of SOB did not correlate with monitor Cardiac Echo (03/16/2017) LV: EF>70%, systolic function WNL RV: TAPSE >1.5cm Left Atrium: mild dilation Grade 1 Diastolic Dysfunction Cardiac Echo (08/10/2017) LV: EF: 65-70%, moderate LVH RV: TAPSE >1.5cm Left Atrium: moderately dilation Grade 1 Diastolic Dysfunction No-Intra Atrial Shunt noted via Contrast RVSP=30-40mmHg IVC: WNL PET/CT (11/2016) PET/CT: No FDG avidity Pulmonary Medications 1) Ferrous Sulfate 2) Budesonide 0.5mg BID Neb 3) Xepenex 1.25mg Q4 Active Problems 1) Obesity (BMI-40.77) 1) Mid Sleep Apnea 2) Back Pain 3) Cellulitis 4) Chest pain 5) Chronic ischemic heart disease 6) Chronic obstructive pulmonary disease (FEV1: 78%) (Utibron, Budeonide BID Neb, Levalbuterol/Atrovent rpn 7) Diabetes mellitus 8) Dyslipidemia 9) Esophageal reflux 10) Gout 11) Hypertension 12) Nocturnal Difficulty Breathing; Causing Awakening From Sleep 13) Nocturnal hypoxia 14) Hx of Oral thrush 15) Paroxysmal atrial fibrillation 16) Peripheral neuropathy 17) Solitary pulmonary nodule 18) Thrombocytopenia 19) UTI due to Klebsiella species 20) Vaginal candidiasis 21) Hx of Pulmonary Embolism Surgical History 1. History of Appendectomy 2. History of Cath Stent Placement 3. History of Cath Stent Placement 4. History of Hip Replacement 5. History of Ovarian Surgery Family History 1. Family history of Cancer 2. Family history of Stroke Syndrome 3. Family history of Cancer 4. Family history of Alcohol Abuse 5. Family history of Cancer 6. Family history of Stroke Syndrome Social History Denied: History of Alcohol Use (History) Denied: History of Drug Use Former smoker (quit 1995 - 0.8-ppd x 38-years) Denied: History of Home Environment Domestic Violence Denied: History of Housing Without Smoke Detectors Marital History - Retired From Work Uses Safety Equipment - Seatbelts Current Meds 1. Nitrostat 0.4 MG Sublingual Tablet Sublingual; PLACE 1 TABLET UNDER THE TONGUE 2. Ipratropium [place] 0.02 % Inhalation Solution; 1 unit dose in nebulizer mixed with levalbuterol inhaled every 4-hours as needed for shortness of breath; 3. Utibron Neohaler 27.5-15.6 MCG Inhalation Capsule; INHALE 1 CAPSULE Twice daily 4. Vortex Valved Holding Chamber Device; TO USE WITH INHALER; 5. Zoster (Zostavax); Inject as directed; 6. Levalbuterol HCl - 1.25 MG/3ML Inhalation Nebulization Solution; USE 1 UNIT DOSE IN NEBULIZER PRN 7. Budesonide 0.5 MG/2ML Inhalation Suspension; USE 1 UNIT DOSE VIA NEBULIZER TWO TIMES A DAY 8. Omeprazole 20 MG Oral Capsule Delayed Release; TAKE 1 CAPSULE DAILY 9. BD Insulin Syringe Ultrafine 30G X 1/2" 1 ML; USE DIRECTED; 10. Coreg 6.25 MG Oral Tablet; Take 1/2 tab twice daily; 11. Coumadin 4 MG Oral Tablet; TAKE 1/2 TABLET ON THU, THU AND THURSDAY 12. Cozaar 50 MG Oral Tablet; TAKE 1 TABLET DAILY 13. Cranberry 400 MG Oral Capsule; Take 1 tablet twice daily; 14. Dexilant 60 MG Oral Capsule Delayed Release; Take one capsule daily; 15. FreeStyle Lite Test STRP; TEST 4 TIMES DAILY; 16. Furosemide 80 MG Oral Tablet; TAKE 2 TABLETS TWICE DAILY; 17. Klor-Con M20 20 MEQ Oral Tablet Extended Release; TAKE 1 TABLET DAILY; 18. Lantus 100 UNIT/ML Subcutaneous Solution; INJECT SUBCUTANEOUSLY 19. Lovastatin 40 MG Oral Tablet; TAKE 1 TABLET DAILY Allergies 1. Aspirin TABS 2. Cephalexin Monohydrate TABS 3. Effexor TABS 4. OxyCODONE HCl TABS Immunizations Hepatitis B --- Series1: Unknown Influenza --- Series1: 2011; Series2: 20-Jul-2014; Series3: 01-May-2015; Series4 : 17-Apr-2016 PCV --- Series1: 20-Jul-2014 PPSV --- Series1: 2007 Zoster --- Series1: 2010; Series2: 19-Jun-2015 Historian: patient, EMS Review of Systems Please refer to HPI Past Medical History Past Medical History: Please refer to HPI Past Surgical History: Please refer to HPI Family History FH: cancer MOTHER (cervical) BROTHER (skin, testicular) Please refer to HPI Social History Please refer to HPI Hx Tobacco Use In Past Year?: No Smoking Status: Former Smoker Housing status: lives alone, other Immunizations History of Influenza Vaccine: Yes Influenza Vaccine Date: May 31, 2016 History of Tetanus Vaccine?: Yes Tetanus Immunization Date: Feb 20, 2012 History of Pneumococcal: Yes Pneumococcal Date: Nov 04, 2000 History of Hepatitis B Vaccine: No History of MDRO History of MDRO: No Allergies Coded Allergies: Codeine (Verified Allergy, Unknown, UNKNOWN, 05/10/17) INFO FROM PT Aspirin (Verified Adverse Reaction, Intermediate, (ULCER), 05/10/17) Venlafaxine (Verified Adverse Reaction, Intermediate, DROWINESS/ CONFUSION , 05/10/17) Cephalexin (Verified Adverse Reaction, Mild, DROWSINESS, UNABLE TO DRIVE, UPSET STOMACH, 05/10/17) Oxycodone (Verified Adverse Reaction, Mild, n/v, 05/10/17) gmg Current Medications Reported Home Medications Medications Dose Route/Sig Max Daily Dose Days Date Category Dose Instructions Cartia Xt (Diltiazem Hcl Coated Beads) 240 Mg Cap 120 Mg PO DAILY 30 08/10/17 Reported [Utibron] INH UD 08/10/17 Reported Pulmicort Respules 0.5MG/2ML (Budesonide (Inhalation)) 0.5 Mg/2 Ml Akilah 1 Vial NEB BID 05/10/17 Reported Lasix (Furosemide) 40 Mg Tab 1 Tab PO BID 30 03/18/17 Rx Zaroxolyn (Metolazone) 2.5 Mg Tab 2.5 Mg PO WK 03/14/17 Reported Wednesdays Cozaar (Losartan Potassium) 100 Mg Tab 100 Mg PO DAILY 02/09/17 Reported Oxygen Gas 3.5 Liters NA HS 02/09/17 Reported Glucose (Glucose-Vitamin C) 1 Chw Chw 1 Tab PO UD PRN 02/09/17 Reported Coumadin (Warfarin Sodium) 2 Mg Tab 2 Mg PO 3XWK 02/09/17 Reported MON,WED, FRI On hold Ferrous Sulfate 325 Mg Tab 325 Mg PO DAILY 01/06/17 Reported Jantoven (Warfarin Sodium) 4 Mg Tab 4 Mg PO 4XWK 01/06/17 Reported SUN,TUES,THURS,SAT 0n hold Isosorbide Mononitrate ER (Isosorbide Mononitrate) 60 Mg Tab 60 Mg PO DAILY 01/06/17 Reported Rocaltrol (Calcitriol) 0.5 Mcg Cap 0.5 Mcg PO DAILY 01/06/17 Reported Novolog (Insulin Aspart) 100 Units/Ml Inj ACHS 01/06/17 Reported SLIDING SCALE Mevacor (Lovastatin) 40 Mg Tab 80 Mg PO HS 09/07/16 Reported Lantus (Insulin Glargine) 100 Unit/Ml Inj 11 Units SQ EVENING MEAL 09/07/16 Reported Lantus (Insulin Glargine) 100 Unit/Ml Inj 25 Units SQ QAM 09/07/16 Reported Metoprolol Succinate ER (Metoprolol Succinate) 25 Mg Tabcr 12.5 Mg PO DAILY 08/19/16 Reported Levalbuterol Hcl 1.25 Mg/3 Ml Neb 3 Ml INH Q4 PRN 05/15/16 Reported Vesicare (Solifenacin) 5 Mg Tab 5 Mg PO DAILY 05/15/16 Reported Nitrostat (Nitroglycerin) 0.4 Mg Sub 0.4 Mg UT PRN PRN 06/20/15 Reported Omeprazole 20 Mg Tab 20 Mg PO DAILY 06/20/15 Reported Physical Physical Exam Vital Signs: Date Time Temp Pulse Resp B/P (MAP) Pulse Ox O2 Delivery O2 Flow Rate FiO2 08/10/17 19:27 82 18 92 Room Air 08/10/17 16:00 Room Air 08/10/17 15:57 36.4 85 18 188/73 (111) 99 Room Air 08/10/17 11:30 36.6 75 20 162/56 100 Room Air General Appearance: NO APPARENT DISTRESS, obese Head: NORMOCEPHALIC, ATRAUMATIC Eyes: PERRLA, NO DISCHARGE, EOMI, SCLERAE NORMAL ENT: NORMAL EAR EXAM, NORMAL NASAL EXAM, NORMAL MOUTH EXAM, NORMAL THROAT EXAM Neck: NORMAL RANGE OF MOTION, NO TENDERNESS, TRACHEA MIDLINE Respiratory: BREATH SOUNDS NORMAL, CLEAR TO AUSCULTATION, CLEAR TO PERCUSSION, NO RESPIRATORY DISTRESS Cardiovasular: other (S1-S2 distant heart sounds but 2/6 systolic murmur best appreciated left upper sternal border) Abdomen: NON TENDER, NORMAL BOWEL SOUNDS, NO REBOUND, NO MASSES, NO GUARDING, NO ORGANOMEGALY Genitourinary - Female: EXTERNAL GENITALIA NORMAL Back: NORMAL INSPECTION, NO MIDLINE TENDERNESS, NO CVA TENDERNESS, NO PARAVERTEBRAL TTP Upper Extremities: NO EDEMA, NO DEFORMITY, NORMAL ROM Lower Extremities: other (2+ pitting edema bilateral lower extremities, bilateral chronic stasis dermatitis) Pulses: carotid (R) (1+), carotid (L) (1+), dorsalis pedis (R) (1+), dorsalis pedis (L) (1+) Neuro: ALERT, ORIENTED x 3, NORMAL MOTOR EXAM, NORMAL SENSATION Reflexes: biceps (R) (1+), bicpes (L) (1+), patellar (R) (1+), patellar (L) (1+ ) Babinski Testing: right (downgoing), left (downgoing) Psychiatric: NORMAL AFFECT, NO SUICIDAL IDEATION Diagnostics Labs Results Past 24 Hours Test 08/10/17 12:15 08/10/17 12:21 08/10/17 12:28 08/10/17 13:22 Range/Units Urine Color YELLOW Urine Appearance CLOUDY CLEAR Urine pH 5.0 4.5-7.5 Urine Specific [place] 1.014 1.000-1.030 Urine Protein NEG NEG Urine Glucose (UA) 1+ NEG Urine Ketones NEG NEG Urine Occult Blood NEG NEG Urine Nitrite NEG NEG Urine Bilirubin NEG NEG Urine Urobilinogen NEG NEG Urine Leukocyte Esterase MODERATE NEG Urine WBC (Auto) >30 0-5 /hpf Urine RBC (Auto) 0-4 0-4 /hpf Urine Hyaline Casts (Auto) 1-5 0-5 /lpf Urine Epithelial Cells (Auto) 5-10 0-5 /lpf Urine Bacteria (Auto) 4+ NEG Bedside Glucose 214 225 70-90 mg/dl White Blood Count 4.57 4.8-10.8 K/uL Red Blood Count 3.38 4.2-5.4 M/uL Hemoglobin 10.7 12.0-16.0 g/dL Hematocrit 32.1 37-47 % Mean Corpuscular Volume 95.0 80-100 fL Mean Corpuscular Hemoglobin 31.7 25-34 pg Mean Corpuscular Hemoglobin Concent 33.3 32-36 g/dl Platelet Count 91 130-400 K/uL Mean Platelet Volume 10.1 7.4-10.4 fL Neutrophils (%) (Auto) 63.4 % Lymphocytes (%) (Auto) 25.4 % Monocytes (%) (Auto) 8.8 % Eosinophils (%) (Auto) 2.0 % Basophils (%) (Auto) 0.2 % Neutrophils # (Auto) 2.90 1.4-6.5 K/uL Lymphocytes # (Auto) 1.16 1.2-3.4 K/uL Monocytes # (Auto) 0.40 0.11-0.59 K/uL Eosinophils # (Auto) 0.09 0-0.5 K/uL Basophils # (Auto) 0.01 0-0.2 K/uL RDW Standard Deviation 47.4 36.4-46.3 fL RDW Coefficient of Variation 13.6 11.5-14.5 % Immature Granulocyte % (Auto) 0.2 % Immature Granulocyte # (Auto) 0.01 0.00-0.02 K/uL Erythrocyte Sedimentation Rate 18 0-21 mm/hr Prothrombin Time 12.7 9.0-12.0 SECONDS Prothromb Time International Ratio 1.2 0.9-1.1 Activated Partial Thromboplast Time 26.9 21.0-31.0 SECONDS Partial Thromboplastin Ratio 1.0 Sodium Level 138 136-145 mmol/L Potassium Level 4.0 3.5-5.1 mmol/L Chloride Level 101 98-107 mmol/L Carbon Dioxide Level 30 21-32 mmol/L Anion Gap 7.0 3-11 mmol/L Blood Urea Nitrogen 50 7-18 mg/dl Creatinine 2.14 0.60-1.20 mg/dl Est Creatinine Clear Calc Drug Dose 25.4 ml/min Estimated GFR () 24.7 Estimated GFR (Non- 21.3 BUN/Creatinine Ratio 23.5 10-20 Random Glucose 249 70-99 mg/dl Calcium Level 9.4 8.5-10.1 mg/dl Total Bilirubin 0.5 0.2-1 mg/dl Direct Bilirubin 0.2 0-0.2 mg/dl Aspartate Amino Transf (AST/SGOT) 15 15-37 U/L Alanine Aminotransferase (ALT/SGPT) 23 12-78 U/L Alkaline Phosphatase 92 45-117 U/L Pro-B-Type Natriuretic Peptide 1240 0-1800 pg/ml Total Protein 6.2 6.4-8.2 gm/dl Albumin 3.0 3.4-5.0 gm/dl Globulin 3.2 2.5-4.0 gm/dl Albumin/Globulin Ratio 0.9 0.9-2 Thyroid Stimulating Hormone (TSH) 1.570 0.300-4.500 uIu/ml Test 08/10/17 16:17 Range/Units Bedside Glucose 267 70-90 mg/dl Microbiology Results 08/10/17 Urine Culture, Received Pending Diagnostic Radiology Please refer to HPI EKG Please refer to HPI Impression Assessment and Plan 77-year-old female admitted for workup of progressive dyspnea on exertion over the last 2 years: 1. Dyspnea on Exertion: Patient is to undergo right heart catheterization tomorrow for evaluation of intrathoracic pressures. At this time previous echocardiogram does show an elevated RSVP estimated to be between 30-40 mmHg. This could be due just to chronic FRANCES poorly treated or underlying etiology cyst is diastolic dysfunctioning. 2. COPD: Patient has mild COPD last pulmonary functions test performed 2016 had an FEV1 of 78 % predicted and an FEV1/FVC of 71. Via GOLD standards this would be within normal limits but via ATS this shows mild obstructive ventilatory disease. These are actually improved from previous pulmonary function studies performed 01/27/2017. At this time continuing current budesonide nebulizer as well as Xopenex/Atrovent nebulizer. Will re-evaluate after patient's right heart catheterization. 3. FRANCES: Patient has agreed to perform a CPAP challenge. I will initiate this at 8 centimeters water pressure with 2 liters of nasal oxygen bled in. If patient is able to tolerate this will perform nocturnal desaturation study on her 2nd night. If patient is able to tolerate CPAP will send home on auto CPAP device and follow up with provider Vera Viera in sleep apnea clinic. 4. Restless leg syndrome: Patient does have a diagnosis via polysomnogram of restless leg. She is currently treated with iron and the most appropriate initial step is to treat the patient's underlying FRANCES prior to re-evaluation. 5. Chest pain: Patient does have intermittent chest pain she notes at night. During our interview she noted of mild musculoskeletal type of pain that I was able to recreate on physical exam in the right anterior chest wall along the anterior axillary line. At this time will continue to monitor his no active signs of pleurisy or active cardiac disease are noted.
[2017-08-10 20:15] VITALS: BP 145/74; PULSE 79; TEMP 36.8; O2SAT 98
[2017-08-10] MEDS ORDERED: LOVASTATIN 20 MG TAB PO SCH (21:00)
--- NOTE | 2017-08-10 22:00 | DIAGNOSTIC IMAGING REPORT ---
BONY ORBITS 3 VIEWS CLINICAL HISTORY: MRI clearance. FINDINGS: 3 views of the bony orbits are obtained. No prior studies are available for comparison at the time of dictation. There is no radiodense/metallic foreign body seen in the region of the bony orbits. The bony orbits are intact as imaged. The visualized paranasal sinuses and the mastoid air cells appear clear. The imaged calvarium appears intact. IMPRESSION: There is no radiodense/metallic foreign body seen in the region of the bony orbits. Electronically signed by: Sumit Castillo M.D. 08/10/2017 9:58 PM Dictated Date/Time: 08/10/2017 9:58 PM
--- NOTE | 2017-08-10 22:46 | DIAGNOSTIC IMAGING REPORT ---
MRI OF THE BRAIN WITHOUT IV CONTRAST CLINICAL HISTORY: Change in mental status. Gait instability. COMPARISON STUDY: CT of the brain dated 05/21/2013. TECHNIQUE: MRI of the brain was performed utilizing various T1 and T2-weighted sequences in the axial, sagittal, and coronal planes. IV contrast was not administered for this examination. FINDINGS: Brain parenchyma: There are age-related involutional changes noting moderate patchy subcortical and periventricular microangiopathic disease. There is no hemorrhage or mass effect. There is a questionable focus of mildly restricted diffusion in the jony seen on image #11. No additional foci of restricted diffusion are identified. Small chronic lacunar infarcts identified within the jony and both thalami. Numerous perivascular spaces are seen throughout the basal ganglia. Rowan-white matter differentiation is preserved. No extra-axial fluid collection is seen. The cerebellar tonsils are normal in configuration. Ventricles, sulci, and cisterns: Prominent secondary to involutional change. Pituitary and sella: Unremarkable. Intracranial vasculature: Normal flow voids are maintained at the skull base. Orbits: The bony orbits are grossly intact. Orbital contents are normal in appearance. Sinuses and mastoids: There is a small retention cyst in the left maxillary antrum. The paranasal sinuses and mastoid air cells are otherwise clear. Calvarium: Unremarkable. Cervical cord: Partially visualized cervical spinal cord is normal in morphology and signal intensity. IMPRESSION: 1. There is a questionable focus of mildly restricted diffusion identified in the jony. This may represent a subacute lacunar infarct. Clinical correlation will be essential. 2. No additional foci of acute to subacute ischemia are suspected. There is no hemorrhage or mass effect. 3. Senescent changes as above. Electronically signed by: Sumit Castillo M.D. 08/10/2017 10:44 PM Dictated Date/Time: 08/10/2017 10:39 PM
[2017-08-10 23:03] VITALS: BP 159/89; PULSE 73; TEMP 36.9; O2SAT 94
[2017-08-10 23:10] VITALS: BP 132/78; PULSE 76; TEMP 36.3; O2SAT 100
[2017-08-11] VITALS (8 sets, daily range): BP systolic 119–156; BP diastolic 41–66; PULSE 62–76; TEMP 36.3–36.7; O2SAT 94–100; Ht 160 cm; Wt 113.0 kg
[2017-08-11 05:04] LABS: INR 1.2 (0.9-1.1)
[2017-08-11 05:25] LABS: CALCIUM 8.6 mg/dl (8.5-10.1); CREATININE 2.23 mg/dl (0.60-1.20); POTASSIUM 3.3 mmol/L (3.5-5.1)
[2017-08-11] MEDS: BUDESONIDE 0.5 MG/2 ML VIAL (PULMICORT) INH SCH ×2 (07:05→19:15)
[2017-08-11 07:36] LABS: HEMOGLOBIN A1C 8.1 % (4.5-5.6)
[2017-08-11] MEDS: FERROUS SULFATE 325 MG TAB PO SCH (07:40)
[2017-08-11] MEDS: LOSARTAN POTASSIUM 50 MG TAB PO SCH (07:40)
[2017-08-11] MEDS: METOPROLOL SUCC 25MG EXT REL TAB PO SCH (07:41)
[2017-08-11] MEDS: ISOSORBIDE MONONITRATE 60 MG TABCR PO SCH (07:41)
[2017-08-11] MEDS: DILTIAZEM HCL 120 MG CAPCR PO SCH ×2 (07:41→20:11)
[2017-08-11] MEDS: CALCITRIOL 0.25 MCG CAP PO SCH (07:41)
[2017-08-11] MEDS: PANTOprazole SOD 40 MG TAB PO SCH (07:42)
[2017-08-11] MEDS: INSULIN ASPART 100 UNITS/ML 3 ML PEN SC SCH ×4 (08:04→21:56)
[2017-08-11] MEDS ORDERED: POTASSIUM CHLORIDE 20 MEQ TABCR PO STA (08:25)
[2017-08-11] MEDS ORDERED: POTASSIUM CHLORIDE 10 MEQ TABCR PO STA (08:25)
[2017-08-11] MEDS ORDERED: DILTIAZEM HCL 120 MG CAPCR PO SCH (09:00)
[2017-08-11] MEDS: INSULIN GLARGINE SOLOSTAR 100 UNITS/ML 3 ML PEN SC SCH ×2 (09:00→21:56)
--- NOTE | 2017-08-11 09:55 | Pharmacy Progress Note ---
Pharmacy Glycemic Short Note 2 Date of Service Aug 11, 2017. OUTPATIENT ANTIDIABETIC REGIMEN: * Lantus 25 units in AM + 11 units in PM * NovoLog per SSI ASSESSMENT: * Patient has received 29 units of insulin over the past ~ 18hrs --> expect a total daily dose of ~60units/day while taking full PO * 08/10 BSGs: 214, 267, 188 * 08/11 BSGs: 190 * AM fasting BSG is elevated at 190 mg/dl * Increased basal insulin dosing may be needed but this is c/w previous admissions. 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 Pt may just be basal deficient since missed dose not made up yesterday. * Post Prandial BSGs are elevated * Pt NPO, will re-assess when diet resumed * Pt is NPO for right heart cath--> reduced dosing may be necessary to prevent low * Pt is currently receiving SQ basal bolus insulin regimen based off of a total daily dose of ~60 units/day * This is reduced outpatient dosing, OK to continue current dosing despite NPO as all BSGs >180 mg/dl * Current dosing is c/w dosing per previous admissions * A1c = 8.1 % 08/11/17. Slight increase from last A1c of 7.8% in May, but this is still in goal range for patient based on age/comorbidities PLAN FOR INPATIENT GLYCEMIC CONTROL: * Basal insulin * Lantus 15 units SQ BID * OK to give if NPO * Bolus insulin * NovoLog per scale ACHS or Q6hrs while NPO * Goal Range: Low 110 mg/dL - High 140 mg/dL * Correction Factor: 20 mg/dL/unit * Nutritional / Prandial insulin per carb ratio of 1 unit per 7 grams CHO consumed
--- NOTE | 2017-08-11 12:27 | PROGRESS NOTE ---
DATE: 08/10/2017 PROBLEM LIST: Includes: 1. Progressive dyspnea on exertion. 2. COPD. 3. Obstructive sleep apnea. 4. Restless leg syndrome. 5. Musculoskeletal chest pain. SUBJECTIVE: The patient reports that she was feeling about the same today. She continues to be short of breath. She had not yet gone down for right heart catheterization that was scheduled for today. On reviewing Dr. Welsh's outpatient note from yesterday he had wanted a CPAP challenge to be done last night. However, she was not able to utilize the mask. She was only able to keep it on for about 5- 10 minutes and then she had to take it off. She does not feel that she will be able to use a CPAP at this time due to her claustrophobia. In reviewing her symptoms with her she has been having some shortness of breath that has been progressively worsening over the past several months. This has been an ongoing issue which she has had worked up over the past several years. She states that she is ok when she is at rest, however, she gets extremely dyspneic with any type of exertion. She has not had any significant cough with production. She has not had any significant wheezing noted. No chest heaviness. She has not had any GI difficulties. She has not had any nausea, vomiting, or diarrhea. She has not had any difficulty with her swallowing. She has not had any numbness, tingling or weakness in her extremities. OBJECTIVE: GENERAL: The patient is a 77-year-old female sitting at bedside. She is alert and oriented x3. Mood is good. Affect is good. She is interactive and cooperative. Does not appear to be in any acute distress. Does not appear to be in any respiratory distress. Is able to get complete sentences out without difficulty. VITAL SIGNS: Temp 36.7, pulse 85, respirations 18, blood pressure is 115/45, pulse ox 97-100% on room air. HEENT: Normocephalic, atraumatic. Pupils are equal, round and reactive to light and accommodation. Extraocular movements are intact. No midline noted. No nystagmus noted. Sclerae nonicteric. MOUTH: Eland moist gingival and buccal mucosa noted. NECK: Short. No mass, adenopathy or bruit noted. She was sitting in her chair and was elevated greater than 45 degrees but there is no JVD noted. CHEST: No wheezes, no rales, no rhonchi noted. She has good air movement throughout. Lungs are diminished but clear. I do not appreciate any wheeze, rale, or rhonchi. No adventitious breath sounds noted. CARDIOVASCULAR: Regular rate and rhythm. Patient has 2/6 systolic murmur. No gallops or rubs. ABDOMEN: Bowel sounds present. Abdomen soft, nontender. No guarding, rigidity or organomegaly. EXTREMITIES: The patient has +1 to +2 pitting edema bilaterally. The patient has bilateral chronic venous stasis changes. NEUROLOGIC: Cranial nerves II through XII are intact. No focal deficit noted. LABORATORY DATA: Shows an INR of 1.2. Sodium 137, potassium 3.3, chloride 101, CO2 32, BUN 51. Creatinine 2.23. Urine culture showing greater than 100,000 colonies. Final culture and sensitivities pending. No new imaging. IMPRESSION: 1. This is a 77-year-old female who I have seen in the office who we have followed for several years with progressive dyspnea on exertion. She has had an extensive workup. She is awaiting a right heart catheterization to be done today. Hopefully that will give further clarification of the etiology of her dyspnea on exertion. 2. COPD. She is continuing her routine medications for this. She has not had any other difficulty. Her pulmonary function test from November to July did improve. 3. Sleep apnea. The patient was unable to tolerate CPAP mask. Not sure if there is much more that we can offer her. I do not know if she would be able to tolerate a nasal mask or not. That may be the next step to try. 4. Restless leg syndrome. MTDD
--- NOTE | 2017-08-11 15:25 | Progress Note ---
Internal Med Progress Note Date of Service: Aug 11, 2017. Provider Documentation: SUBJECTIVE: The patient was seen and examined Admitted with SOB on minimal exertion No Chest pain ,nausea and or vomiting OBJECTIVE: Vital Signs-as noted below Exam: General-no distress Eyes-normal ENT-normal Neck-Supple Lungs-Clear to ausucltate bilaterally Heart-Regular,no murmur appreciated Abdomen-Benign,Distended and soft ,no masses,bowel sound present Extremities-Trace edema bilaterally Neuro-[id number] Lab data as noted below. ASSESSMENT & PLAN: Progressive SHORTNESS OF BREATH - directly admitted to [facility] for right sided heart cath tomorrow - has been having progressive shortness of breath for 2 years - likely multifactorial due to underlying COPD, diastolic CHF, deconditioning - recent outpatient sleep study showed mild FRANCES - nasal CPAP recommended; patient has not had follow up for these results yet - appreciate Cardiology input -appreciate Pulmonary input -Right heart Cancerization today EPISODIC CONFUSION - brain MRI ordered by cardiology::May have Lacunar infarct - consider neuro consult pending results -Clinically stable CAD - appears stable, no reports of chest pain - continue beta joe, nitrate, and statin -no acute symptoms DIASTOLIC CHF - echo 12/2016 - EF > 70%, grade I diastolic dysfunction, mild TR -Right heart cath today -CXR is not showing any CHF -Hold lasix for now HTN - BP controlled, continue losartan, isosorbide, and metoprolol DM - hgb a1c 6.8 03/2017 - on Lantus + Novolog SSI at home; continue with inpatient adjustments CKD STAGE IV - baseline creat runs ~ 2.0 - creat noted to be 2.1 today - continue to monitor, avoid nephrotoxic agents when able -Advised more fluid intake DVT PROPHYLAXIS - SCDs due to procedure tomorrow DISPOSITION Likely discharge tomorrow Vital Signs: Date Time Temp Pulse Resp B/P (MAP) Pulse Ox O2 Delivery O2 Flow Rate FiO2 08/11/17 12:17 36.7 67 16 120/47 (71) 98 Room Air 08/11/17 12:00 Room Air 08/11/17 08:00 Room Air 08/11/17 07:49 36.7 76 18 156/45 (82) 97 Room Air 08/11/17 07:07 76 18 100 Room Air 08/11/17 04:55 36.5 73 20 144/41 (75) 99 Nasal Cannula 3.5 08/11/17 04:00 Room Air 08/11/17 00:00 Room Air 08/10/17 23:10 36.3 76 18 132/78 (96) 100 Nasal Cannula 3.5 08/10/17 20:55 Room Air 08/10/17 20:15 36.8 79 20 145/74 (97) 98 Room Air 08/10/17 20:00 Room Air 08/10/17 19:27 82 18 92 Room Air 08/10/17 16:00 Room Air 08/10/17 15:57 36.4 85 18 188/73 (111) 99 Room Air Lab Results: Results Past 24 Hours Test 08/10/17 16:17 08/10/17 20:36 08/11/17 04:35 08/11/17 07:04 Range/Units Bedside Glucose 267 188 190 70-90 mg/dl Prothrombin Time 12.3 9.0-12.0 SECONDS Prothromb Time International Ratio 1.2 0.9-1.1 Sodium Level 137 136-145 mmol/L Potassium Level 3.3 3.5-5.1 mmol/L Chloride Level 101 98-107 mmol/L Carbon Dioxide Level 32 21-32 mmol/L Anion Gap 4.0 3-11 mmol/L Blood Urea Nitrogen 51 7-18 mg/dl Creatinine 2.23 0.60-1.20 mg/dl Est Creatinine Clear Calc Drug Dose 24.3 ml/min Estimated GFR () 23.5 Estimated GFR (Non- 20.3 BUN/Creatinine Ratio 22.9 10-20 Random Glucose 201 70-99 mg/dl Estimated Average Glucose 186 mg/dl Hemoglobin A1c 8.1 4.5-5.6 % Calcium Level 8.6 8.5-10.1 mg/dl Triglycerides Level 160 0-150 mg/dl Cholesterol Level 123 0-200 mg/dl HDL Cholesterol 55 mg/dl LDL Cholesterol, Calculated 36 mg/dl VLDL Cholesterol, Calculated 32 mg/dl Cholesterol/HDL Ratio 2.2 Test 08/11/17 11:18 08/11/17 14:06 Range/Units Bedside Glucose 176 162 70-90 mg/dl
--- NOTE | 2017-08-11 16:08 | CONSULTATION REPORT ---
DATE OF CONSULTATION: 08/11/2017 HISTORY OF PRESENT ILLNESS: Magui is a 77-year-old white right-handed woman known to Dr. Waterman and also to Dr. Chan Do and Dr. Antonio Hernandez of pulmonology. She was admitted directly to the cardiology service for evaluation of shortness of breath with the intent being to perform a right heart catheterization. She has had chronic shortness of breath for years and has been followed by pulmonology and cardiology and a right heart catheterization was suggested to evaluate her further in terms of her right ventricular function. She has longstanding COPD, diastolic congestive heart failure with a hyperdynamic ejection fraction and has had some memory problems of which she is marginally aware recently. This is the reason that neurology was consulted and actually, I spoke in some detail about her case with Dr. Giles on Thursday before she was admitted. She apparently was pulled over by the police not long ago due to swerving her vehicle and was noted to be confused, although the officer apparently did not turn her license in and no further recommendations were made regarding the assessment. She has a vague recall of this event now. She states that her daughter occasionally reminds her about her short term memory, but by and large, she seems unaware of it or at least minimizes the problem. She really had no headaches, no sudden events of word finding difficulty or hemiparesis, at least to her knowledge, has had no visual problems, dizziness, vertigo, tinnitus, significant hearing loss, other than that which will be expected at age 77, but has been having increasing shortness of breath. She denies any chest pain or other issues. PAST MEDICAL HISTORY: Medically, she has anxiety, atypical chest pain, bronchitis, intertriginous involvement with Susanne, has had a longstanding COPD, has had some hyperventilation attacks, has had left-sided chest pain, pneumonia, urinary tract infections, generalized weakness and apparently stage III renal disease. FAMILY HISTORY: Positive for cancer in her mother involving the cervix and a brother who has longer testes. SOCIAL HISTORY: Reveals her to be a former smoker. She does not consume ethanol. She lives close by her daughter and her son-in-law continues to drive. ALLERGIES: SHE HAS ALLERGIES TO CODEINE, ASPIRIN, AND VENLAFAXINE WHICH CAUSES CONFUSION, CEPHALEXIN AND OXYCODONE. HOME MEDICATIONS: Include Lasix, Diltiazem Pulmicort, metolazone, Cozaar, 3.5 liters of oxygen at night, glucose tablets, Coumadin, ferrous sulfate, isosorbide as needed, Rocaltrol, NovoLog insulin, Mevacor, Lantus insulin, metoprolol, levalbuterol, VESIcare, Nitrostat, omeprazole, but does not contain any aspirin or Plavix at this point in light of her aspirin allergy. REVIEW OF SYSTEMS: Reveals the shortness of breath, the generalized weakness, the increasing dependency on oxygen, the ambulatory dysfunction, numbness in her feet, but no specific complaints referable to head, eyes, ears, nose and throat, cardiopulmonary, other than as noted above, gastrointestinal system, genitourinary system, or musculoskeletal system other than noted above. Neurologically, she is marginally aware of her memory deficits and has a very poor recall of the event that caused the police to pull her over. PHYSICAL EXAMINATION: VITAL SIGNS: Her blood pressure was 162/56, pulse was 75, respirations were 20. She was obese, otherwise in no apparent distress, was alert and oriented. HEENT: Examination was normal. NECK: Supple. No carotid bruits were heard. LUNGS: Clear, although breath sounds were quite distant. CARDIOVASCULAR: Revealed normal rate and rhythm, no murmurs. There was peripheral edema. ABDOMEN: Obese with normal bowel sounds. There was no palpable organomegaly. NEUROLOGIC: Today, she is awake, alert and oriented. She is a reasonable historian and knows that she is due for right heart catheterization, can recall instructions about not to flex her right elbow while waiting to go to the environmental laboratory technician and has actually a reasonably good mini mental status on bedside testing. She recalls 1/3 unrelated terms, could spell well backwards, could read the paper, repeat phrases, name objects in the room. She again was totally oriented to person, place, time, and location, [facility], [facility], [facility]. She had no problems doing sequential commands, but I did not test handwriting as her right arm could not be flexed to perform the examination nor could she draw the 3-dimensional figure because of that. Cranial nerves are intact. There are no visual field cuts. Speech is clear. I could not pick out hand any aphasic tendencies. There was no real drift or pronation sign of the left arm. There was a minor tremor at most. Again, I could not test her right arm because of the restriction in flexion. She was areflexic at the ankles and knees. Toes were downgoing. No Anette's signs were seen. Muscle strength testing was normal and sensation revealed absence of vibratory sense, reduced light touch and reduced temperature and pinprick over the feet and distal legs. IMAGING AND LABORATORY STUDIES: Imaging studies: Have shown a questionable area in the jony on diffusion weighted imaging, which actually makes no clinical sense based on her exam and diffuse leukoencephalopathy with some volume loss secondary to that. There are some white matter changes in the jony as well, not atypical for a small vessel disease. Laboratory studies have shown variable degrees of glucose control. At this point, I suspect this is a vascular dementia, but it is hard to discount the effects of her chronic hypoxemia and perhaps the effects of fluctuating glucose levels. I do not think this is Alzheimer disease, but that having been said, if her cognitive impairment is getting to the point where she is unsafe to operate a motor vehicle no matter what the cause, then this may have to be stopped. She is here for a very focused reason, i.e., the right heart catheterization and at this point, I do not think we certainly going to offer an in-depth neuro psych evaluation, but I would not suggest that she be seen in the outpatient basis in our clinic. She can actually see the cognitive impairment group that visits once a month or could see CATHERINE Villanueva, with our practice at [facility] and have a more in-depth session that we can perform the hospital. I think if there are questions regarding her capacity to operate a motor vehicle, then perhaps she should be reexamined by the DMV at [place]. These are the issues that needed to be discussed on an outpatient basis, however, with family members present. If this woman's driving privileges needed to be revoked, then alternative means of getting her to appointments, etc, will need to be arranged. I will check back with her tomorrow, but for now, I think much of this can be done on an outpatient basis through the mechanisms outlined above and the imaging study in my opinion is probably artifactual and makes no clinical sense. 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 WILLIAMD
--- NOTE | 2017-08-11 16:52 | PROGRESS NOTE ---
DATE: 08/11/2017 CARDIOLOGY CONSULTATION FOLLOWUP NOTE The patient seen and examined. SUBJECTIVE: Notes no complaints today. Does complain of chronic dyspnea and fatigue. Notes no chest pains, dizziness, lightheadedness, syncope or near syncope, was anticipating right heart catheterization today. Procedure has been delayed due to multiple emergent cases absorbing lab time. She notes good tolerance with recent increase in medications, heart rate and blood pressure have come under control, there has been no arrhythmias. OBJECTIVE: VITAL SIGNS: Heart rate is 62, blood pressure is 119/49. HEENT: Normocephalic, atraumatic. NECK: Thick. There is no distinct jugular venous distention. LUNGS: Notable for mildly diminished breath sounds. CARDIOVASCULAR: Regular. There is no S3 gallop. ABDOMEN: Soft, nontender. Obese. EXTREMITIES: Without cyanosis or clubbing. There is trace pedal edema. LABORATORY DATA: Sodium is 137, potassium is 3.3, chloride is 101, bicarbonate is 42, BUN is 51, and creatinine is 2.2. White cell count is 4.5, hemoglobin is 10.7, platelet count is 91,000. Sed rate is 18. IMAGING STUDY: MRI done since admission demonstrates diffuse small vessel disease with evidence of mild restricted perfusion in the jony, questionable subacute lacunar infarct. IMPRESSION: The patient is a 77-year-old female with multiple issues which include: 1. Chronic exertional dyspnea and fatigue. The patient anticipating right heart catheterization to aid in management. 2. Hypertension with hypertensive heart disease. 3. Stable ischemic heart disease. 4. Recent decline in functional capacity with some mental status changes and gait instability. MRI questions possible pontine stroke. PLAN: Continue increased dose of diltiazem at 120 mg twice per day. This appears to be improved job control in heart rate and blood pressure. Right heart catheterization to reassess pulmonary issues on hold until am with diuretics remaining on hold. Neurology will be consulted to add further information regarding recent MRI and clinical decline. Will hold lovastatin transiently. No recent hyperlipidemia discerned. Further recommendations pending the results of full studies. MTDD
[2017-08-12] VITALS (15 sets, daily range): BP systolic 99–163; BP diastolic 39–78; PULSE 57–76; TEMP 36.5–36.9; O2SAT 97–100
[2017-08-12 05:09] LABS: INR 1.1 (0.9-1.1)
[2017-08-12 05:11] LABS: CALCIUM 8.6 mg/dl (8.5-10.1); CREATININE 2.29 mg/dl (0.60-1.20); POTASSIUM 3.6 mmol/L (3.5-5.1)
[2017-08-12] MEDS: INSULIN ASPART 100 UNITS/ML 3 ML PEN SC SCH ×4 (07:00→21:22)
[2017-08-12] MEDS: BUDESONIDE 0.5 MG/2 ML VIAL (PULMICORT) INH SCH ×2 (07:07→19:08)
[2017-08-12] MEDS: DILTIAZEM HCL 120 MG CAPCR PO SCH ×2 (07:46→21:15)
[2017-08-12] MEDS: FERROUS SULFATE 325 MG TAB PO SCH (07:46)
[2017-08-12] MEDS: ISOSORBIDE MONONITRATE 60 MG TABCR PO SCH (07:46)
[2017-08-12] MEDS: LOSARTAN POTASSIUM 50 MG TAB PO SCH (07:47)
[2017-08-12] MEDS: METOPROLOL SUCC 25MG EXT REL TAB PO SCH (07:48)
[2017-08-12] MEDS: PANTOprazole SOD 40 MG TAB PO SCH (07:48)
[2017-08-12] MEDS: CALCITRIOL 0.25 MCG CAP PO SCH (07:48)
[2017-08-12] MEDS: INSULIN GLARGINE SOLOSTAR 100 UNITS/ML 3 ML PEN SC SCH ×2 (07:51→21:24)
[2017-08-12] MEDS ORDERED: FENTANYL CITRATE INJ 50 MCG/1 ML 2 ML VIAL ONE (10:18)
[2017-08-12] MEDS ORDERED: SODIUM CHLORIDE 0.9% 1000ML 250 ML IV PRN (10:43)
[2017-08-12] MEDS ORDERED: ACETAMINOPHEN 325 MG TAB PO PRN (10:45)
--- NOTE | 2017-08-12 10:59 | [facility] Post Operative Brief Note ---
Preliminary Procedure Note Procedure Date Aug 12, 2017. Pre-Procedure Diagnosis Cardiothoracic Symptom AUC Score N/A Post-Procedure Diagnosis Cardiothoracic Finding Procedure(s) Performed Right Heart Cath Tafe Teacher Dr. Chan Do [employer] Weaver(s) Nate Sanchez Estimated Blood Loss <15 cc Medication(s) Fentanyl (12.5 mcg IV), Lidocaine 1% (local infiltration) Preliminary Findings Normal right heart pressures RA mean 2 RV32/3 Left PA 30/2/15 Right PA 29/1/14 PCWP mean 8, Vwave 10 CO 5.3 L/M thermodilution O2 Sat % SVC 58, RA 64, IVC 68, PA 60 Recommendations Medical therapy and/or Counseling Specimens None Fluids (cc crystalloids) 12 Disposition PCU
--- NOTE | 2017-08-12 11:06 | Cardiac Catheterization ---
Procedure Note Procedure Date Aug 12, 2017. Pre-Procedure Diagnosis Cardiothoracic Symptom AUC Score N/A Post-Procedure Diagnosis Cardiothoracic Finding Procedure(s) Performed Right Heart Cath Configuration Management Administrator Dr. Chan Do Plant Associate(s) Nate Correia Estimated Blood Loss <15 cc Medication(s) Fentanyl (12.5 mcg IV), Lidocaine 1% (local infiltration) Summary of Findings Normal right heart pressures RA mean 2 RV32/3 Left PA 30/2/15 Right PA 29/1/14 PCWP mean 8, Vwave 10 CO 5.3 L/M thermodilution O2 Sat % SVC 58, RA 64, IVC 68, PA 60 Hemodynamics Rest Ao: N/A Final Ao: N/A LV: N/A RA: 2 RV: 32/3 PA: 30/2/15 PW: 8 Recommendations Medical therapy and/or Counseling Specimens None Radiation Exposure (mGy) 165 Contrast (mls) None Fluids (cc crystalloids) 12 Procedural Complication(s) None Disposition PCU ACC Data Cardiac Status Clinical evaluation leading to the procedure CAD Presntation: Sx unlikely to be ischemic Heart Failure: Yes, NYHA Class: CCS II Cardiogenic Shock w/in 24Hrs: No Cardiac Arrest w/in 24Hrs: No Imaging studies past 6 months: Yes Diagnostic Physician's Name: Chan Do M.D. Status: Elective Closure Device Percutaneous Entry Location: Femoral Closure Device: none - manual hold Recommendations: Medical therapy and/or Counseling
[2017-08-12] MEDS: LEVOFLOXACIN 500 MG TAB PO SCH (13:03)
--- NOTE | 2017-08-12 15:00 | PROGRESS NOTE ---
DATE: 08/12/2017 CARDIOLOGY FOLLOWUP NOTE The patient seen and examined. Chart, medications, telemetry reviewed. SUBJECTIVE: The patient noted no complaints overnight. Underwent right heart catheterization earlier today, which demonstrated normal right heart pressures and saturations normal cardiac output. OBJECTIVE: VITAL SIGNS: Heart rate is 68, blood pressure is 102/57. NECK: Thick, but there is no distinct jugular venous distention. LUNGS: Clear with mildly diminished breath sounds. CARDIOVASCULAR: Regular with a grade 1/6 systolic murmur. There is no diastolic murmur. ABDOMEN: Soft, nontender. EXTREMITIES: Without cyanosis or clubbing. There is no peripheral edema. LABORATORY STUDIES: Sodium is 138, potassium is 3.6, chloride is 105, bicarbonate is 29, BUN is 51, and creatinine is 2.2. IMPRESSION: A 77-year-old female with moderate to severe left ventricular hypertrophy with hyperdynamic left ventricular function, chronic diastolic heart failure, chronic dyspnea secondary to diastolic dysfunction, past history of obstructive sleep apnea with poor tolerance of treatment. PLAN: As outlined. Follow via pulmonology with a nocturnal oximetry tonight and in the interim, will continue increased dose of diltiazem. Will reduce dose of nitrates to isosorbide mononitrate 30 mg per day. Increase activities in hospital.
--- NOTE | 2017-08-12 16:53 | PROGRESS NOTE ---
DATE: 08/12/2017 SUBJECTIVE: Magui has had her heart catheterization. She is sitting in chair. She seems bright, active and alert and knows where she is related to her history, does not demonstrate any significant confusion right now. At this point, I suspect she does have an underlying vascular dementia with some cognitive impairment, but this can be addressed on an outpatient basis and she certainly has a number of systemic disease issues that are not helping her cognitive ulloa. After discharge, I would suggest she have an appointment CATHERINE Au for in-depth testing and we can go from there, but I am really reluctant to recommend any type of anticholinesterase or Namenda therapy at this time. RAYNA
[2017-08-13] VITALS (8 sets, daily range): BP systolic 112–158; BP diastolic 62–73; PULSE 62–74; TEMP 36.4–36.8; O2SAT 97–100
[2017-08-13] MEDS: INSULIN ASPART 100 UNITS/ML 3 ML PEN SC SCH ×4 (07:41→21:18)
[2017-08-13] MEDS: CALCITRIOL 0.25 MCG CAP PO SCH (07:42)
[2017-08-13] MEDS: ISOSORBIDE MONONITRATE 30 MG TABCR PO SCH (07:42)
[2017-08-13] MEDS: DILTIAZEM HCL 120 MG CAPCR PO SCH ×2 (07:42→20:17)
[2017-08-13] MEDS: LOSARTAN POTASSIUM 50 MG TAB PO SCH (07:43)
[2017-08-13] MEDS: FERROUS SULFATE 325 MG TAB PO SCH (07:43)
[2017-08-13] MEDS: PANTOprazole SOD 40 MG TAB PO SCH (07:43)
[2017-08-13] MEDS: METOPROLOL SUCC 25MG EXT REL TAB PO SCH (07:43)
[2017-08-13] MEDS: INSULIN GLARGINE SOLOSTAR 100 UNITS/ML 3 ML PEN SC SCH ×2 (07:46→21:19)
[2017-08-13 08:55] LABS: CALCIUM 8.8 mg/dl (8.5-10.1); CREATININE 2.46 mg/dl (0.60-1.20); POTASSIUM 3.9 mmol/L (3.5-5.1)
--- NOTE | 2017-08-13 09:17 | Pharmacy Progress Note ---
Pharmacy Glycemic Short Note 2 Date of Service Aug 13, 2017. OUTPATIENT ANTIDIABETIC REGIMEN: * Lantus 25 units in the morning and 11 units in the evening + Novolog SS ASSESSMENT: * Ms Harp is a 77 y/o F admitted with SOB- she underwent a right cardiac cath yesterday. Yesterday the patient's blood sugars ranged from 131-221 mg/dL and she received 54 units of insulin (30 units of basal). This morning, her fasting blood sugar is 95 mg/dL (yesterday's blood sugar was 131 mg/dL). Reduce Lantus by 10% to 13 units twice daily. Previous admissions suggest a basal between 25-30 units daily. * Post-prandial blood sugars appear well controlled. Continue current regimen there. PLAN FOR INPATIENT GLYCEMIC CONTROL: * Basal insulin * Lantus 13 units SQ BID * Bolus insulin * NovoLog per scale ACHS or Q6hrs while NPO * Goal Range: Low 110 mg/dL - High 140 mg/dL * Correction Factor: 20 mg/dL/unit * Nutritional / Prandial insulin per carb ratio of 1 unit per 7 grams CHO consumed PLAN FOR DISCHARGE: * Patient's HbA1C goal is 7.6-8.0% based upon the Elements of Diabetes Care Scoring Scale ... currently her HbA1C is slightly above this. Titrate insulin to reduce HbA1C slightly.
--- NOTE | 2017-08-13 11:08 | PROGRESS NOTE ---
DATE: 08/13/2017 DATE: 08/13/2017 The patient was seen 08/13/2017. The patient was seen in room 219 bed 1. PROBLEM LIST: Includes: 1. Progressive dyspnea on exertion. 2. Chronic obstructive pulmonary disease. 3. Obstructive sleep apnea. 4. Restless leg syndrome. SUBJECTIVE: The patient reports that she is doing about the same. She continues to be dyspneic with exertion. While she is at rest she is not having any difficulty. She did undergo right heart cath by Dr. Chan Do and her pressures were unremarkable with no evidence of pulmonary hypertension. At this time, she is not having any difficulty with cough or congestion. No wheezing. No chest heaviness or tightness. The musculoskeletal chest pain that she was exhibiting earlier in the week has pretty much resolved. She denies any anginal type chest pain. No fever or chills. No GI difficulties. No nausea or vomiting. No indigestion or heartburn. No difficulty with her bowels. Physical therapy has worked with her and she has done well. She is not really having any swelling in her extremities at this time. OBJECTIVE: GENERAL: The patient is a 77-year-old female sitting in a chair at bedside, no acute distress. She is alert. She is oriented to person and place. She is interactive and cooperative. Does not exhibit any respiratory distress. No acute distress noted. VITAL SIGNS: Temp 36.8, pulse 74, respirations 20, blood pressure is 158/73, pulse ox 98% on room air. HEAD, EYES, EARS, NOSE, AND THROAT: Normocephalic, atraumatic. Pupils equal, round and react to light and accommodation. Extraocular movements are intact. [place], moist gingival and buccal mucosa. NECK: Short and thick. No mass. No tenderness to palpation. CHEST: Diminished but clear. I did not appreciate any wheeze, rales or rhonchi at this time. CARDIOVASCULAR: Regular rate and rhythm. No murmurs, gallops or rubs noted. ABDOMEN: Bowel sounds are present. Abdomen soft, nontender. No guarding, rigidity or organomegaly. EXTREMITIES: The patient has trace edema bilaterally. No tenderness at this time. No cyanosis or clubbing noted at this time. The patient's creatinine is stable at 2.46. IMPRESSION: 1. This is a 77-year-old female with progressive dyspnea on exertion which has been going on for several years. Unfortunately, we have not been able to pinpoint the exact etiology of this. Right heart catheterization that was done is essentially unremarkable, not really showing any evidence of pulmonary hypertension. 2. Chronic obstructive pulmonary disease. This has been stable. Pulmonary function testing over the past 1-2 years as showing mild disease and has not shown any deterioration. 3. The patient does have known sleep apnea. Unfortunately, she was unable to tolerate CPAP mask. At this point I would like for her to continue to work to see if we can find a mask that she may be able to tolerate. For now she is just to continue her oxygen at 3 liters at nighttime. She does have an appointment with Vera Viera PA-C on 08/18/2017. She is to keep this and discuss possible alternatives for CPAP or doing a different mask to see if she can tolerate. She will also need an overnight oxygen challenge to see if her current level is appropriate and make sure there is no desaturations noted. PLAN: At this point I have reviewed the case with both Dr[facility] Pacheco [facility] and Dr. Welsh. The patient is going to have 2-step today and be discharged to home. In reviewing outpatient EHR she does have a follow-up appointment on 08/18/2017 with Vera Viera PA-C. She is to keep this appointment. If she has any difficulty prior to that she is to contact the office prior to this. Patient ans plan reviewed and agreed with. RAYNA
[2017-08-13] MEDS: LEVOFLOXACIN 500 MG TAB PO SCH (11:23)
--- NOTE | 2017-08-13 12:48 | PROGRESS NOTE ---
DATE: 08/13/2017 CARDIOLOGY CONSULTATION FOLLOWUP NOTE Today patient seen and examined. Chart, medications, telemetry reviewed. SUBJECTIVE: The patient feels well this morning. Once again, there is no breathlessness with walking. Notes no dizziness or lightheadedness. Notes no syncope or near syncope. OBJECTIVE: VITAL SIGNS: Heart rate is 62, blood pressure is 112/62. NECK: Thick. There is no distinct jugular venous distention. LUNGS: Clear. CARDIOVASCULAR: Regular. There is no S3 gallop. ABDOMEN: Soft. EXTREMITIES: Reveal 1-2+ lower extremity edema. DATA: Right heart catheterization was performed which demonstrated normal right heart pressures and normal cardiac output. Pulmonary capillary wedge mean was 8 with a V wave of 10. Echocardiogram demonstrates severe left ventricular hypertrophy, normal to hyperdynamic LV functioning and diastolic function. RECOMMENDATIONS: We will continue diltiazem 120 mg twice per day. Would discontinue metoprolol and continue reduced dose nitrates at 30 mg per day. Plan on resuming diuretic on discharge at 40 mg per day rather than b.i.d. and discontinuing metolazone. Anticoagulation will be reinstituted with warfarin. Will recommend holding the statin therapy for 1 month's time. Follow up with cardiology in 4-6 weeks' time.
--- NOTE | 2017-08-13 13:23 | Progress Note ---
Internal Med Progress Note Date of Service: Aug 12, 2017. Provider Documentation: This is a late entry for 08/12/17 SUBJECTIVE: The patient was seen and examined Admitted with SOB on minimal exertion No Chest pain ,nausea and or vomiting Still complains of SOB on exertion OBJECTIVE: Vital Signs-as noted below Exam: General-no distress Eyes-normal ENT-normal Neck-Supple Lungs-Clear to ausucltate bilaterally Heart-Regular,no murmur appreciated Abdomen-Benign,Distended and soft ,no masses,bowel sound present Extremities-Trace edema bilaterally [id number] Lab data as noted below. ASSESSMENT & PLAN: Progressive SHORTNESS OF BREATH - directly admitted to [facility] for right sided heart cath tomorrow - has been having progressive shortness of breath for 2 years - likely multifactorial due to underlying COPD, diastolic CHF, deconditioning - recent outpatient sleep study showed mild FRANCES - nasal CPAP recommended; patient has not had follow up for these results yet - appreciate Cardiology input -appreciate Pulmonary input -S/P Right heart Cancerization -negative finding -PT/OT ordered EPISODIC CONFUSION - brain MRI ordered by cardiology::May have Lacunar infarct - consider neuro consult pending results -Clinically stable -Has UTI and getting treatment CAD - appears stable, no reports of chest pain - continue beta joe, nitrate, and statin -no acute symptoms DIASTOLIC CHF - echo 12/2016 - EF > 70%, grade I diastolic dysfunction, mild TR -Right heart cath today -CXR is not showing any CHF -Hold Lasix for now HTN - BP controlled, continue losartan, isosorbide, and metoprolol DM - hgb a1c 6.8 03/2017 - on Lantus + Novolog SSI at home; continue with inpatient adjustments -appreciate Pharmacy input CKD STAGE IV - baseline creat runs ~ 2.0 - creat noted to be 2.1 today - continue to monitor, avoid nephrotoxic agents when able -Advised more fluid intake DVT PROPHYLAXIS - SCDs due to procedure tomorrow DISPOSITION Likely discharge in a day or two Vital Signs: Date Time Temp Pulse Resp B/P (MAP) Pulse Ox O2 Delivery O2 Flow Rate FiO2 08/13/17 12:00 Room Air 08/13/17 10:46 36.5 62 18 112/62 (79) 99 Room Air 08/13/17 08:00 Room Air 08/13/17 07:15 36.8 74 20 158/73 (101) 98 Room Air 08/13/17 04:00 Nasal Cannula 2.0 08/13/17 03:35 36.8 64 20 116/62 (80) 98 Nasal Cannula 2.0 08/12/17 23:59 Nasal Cannula 2.0 08/12/17 23:38 36.6 63 20 144/64 (90) 100 Nasal Cannula 2.0 08/12/17 20:00 Room Air 08/12/17 19:28 36.5 64 18 149/64 (92) 98 Room Air 08/12/17 19:10 60 16 98 Room Air 08/12/17 16:00 Room Air 08/12/17 15:54 36.7 63 18 111/56 (74) 97 Room Air 08/12/17 13:44 68 18 102/57 (72) 98 Room Air Lab Results: Results Past 24 Hours Test 08/12/17 15:57 08/12/17 19:32 08/13/17 04:47 08/13/17 06:33 Range/Units Bedside Glucose 149 221 95 70-90 mg/dl Prothrombin Time 10.8 9.0-12.0 SECONDS Prothromb Time International Ratio 1.0 0.9-1.1 Test 08/13/17 08:26 08/13/17 10:44 Range/Units Sodium Level 137 136-145 mmol/L Potassium Level 3.9 3.5-5.1 mmol/L Chloride Level 105 98-107 mmol/L Carbon Dioxide Level 25 21-32 mmol/L Anion Gap 8.0 3-11 mmol/L Blood Urea Nitrogen 47 7-18 mg/dl Creatinine 2.46 0.60-1.20 mg/dl Est Creatinine Clear Calc Drug Dose 22.4 ml/min Estimated GFR () 20.9 Estimated GFR (Non- 18.0 BUN/Creatinine Ratio 19.1 10-20 Random Glucose 185 70-99 mg/dl Calcium Level 8.8 8.5-10.1 mg/dl Bedside Glucose 199 70-90 mg/dl
--- NOTE | 2017-08-13 13:27 | Progress Note ---
Internal Med Progress Note Date of Service: Aug 13, 2017. Provider Documentation: SUBJECTIVE: The patient was seen and examined Admitted with SOB on minimal exertion No Chest pain ,nausea and or vomiting S/P Negative Right Heart cath Getting PT and doing well OBJECTIVE: Vital Signs-as noted below Exam: General-no distress at rest SOB on exertion Eyes-normal ENT-normal Neck-Supple Lungs-Clear to ausucltate bilaterally Heart-Regular,no murmur appreciated Abdomen-Benign,Distended and soft ,no masses,bowel sound present Extremities-Trace edema bilaterally [id number]-[id number] Lab data as noted below. ASSESSMENT & PLAN: Progressive SHORTNESS OF BREATH - directly admitted to [facility] for right sided heart cath tomorrow - has been having progressive shortness of breath for 2 years - likely multifactorial due to underlying COPD, diastolic CHF, deconditioning - recent outpatient sleep study showed mild RFANCES - nasal CPAP recommended; patient has not had follow up for these results yet - appreciate Cardiology input -appreciate Pulmonary input -S/P Right heart Cancerization -negative finding -PT/OT ordered -doing reasonably well 2 steps before discharge today Happy with the management EPISODIC CONFUSION - brain MRI ordered by cardiology::May have Lacunar infarct - consider neuro consult pending results -Clinically stable -Has UTI and getting treatment -Appreciate Neurology input-no recommendation CAD - appears stable, no reports of chest pain - continue beta joe, nitrate, and statin -no acute symptoms DIASTOLIC CHF - echo 12/2016 - EF > 70%, grade I diastolic dysfunction, mild TR -Right heart cath today -CXR is not showing any CHF -Hold Lasix for now -Appreciate Medication adjustment HTN - BP controlled, continue losartan, isosorbide, and metoprolol DM - hgb a1c 6.8 03/2017 - on Lantus + Novolog SSI at home; continue with inpatient adjustments -appreciate Pharmacy input CKD STAGE IV - baseline creat runs ~ 2.0 - creat noted to be 2.1 today - continue to monitor, avoid nephrotoxic agents when able -Advised more fluid intake -Remains stable - DVT PROPHYLAXIS - SCDs due to procedure tomorrow DISPOSITION Likely discharge today Vital Signs: Date Time Temp Pulse Resp B/P (MAP) Pulse Ox O2 Delivery O2 Flow Rate FiO2 08/13/17 12:00 Room Air 08/13/17 10:46 36.5 62 18 112/62 (79) 99 Room Air 08/13/17 08:00 Room Air 12/14/17 07:15 36.8 74 20 158/73 (101) 98 Room Air 08/13/17 04:00 Nasal Cannula 2.0 08/13/17 03:35 36.8 64 20 116/62 (80) 98 Nasal Cannula 2.0 08/12/17 23:59 Nasal Cannula 2.0 08/12/17 23:38 36.6 63 20 144/64 (90) 100 Nasal Cannula 2.0 08/12/17 20:00 Room Air 08/12/17 19:28 36.5 64 18 149/64 (92) 98 Room Air 08/12/17 19:10 60 16 98 Room Air 08/12/17 16:00 Room Air 08/12/17 15:54 36.7 63 18 111/56 (74) 97 Room Air 08/12/17 13:44 68 18 102/57 (72) 98 Room Air Lab Results: Results Past 24 Hours Test 08/12/17 15:57 08/12/17 19:32 08/13/17 04:47 08/13/17 06:33 Range/Units Bedside Glucose 149 221 95 70-90 mg/dl Prothrombin Time 10.8 9.0-12.0 SECONDS Prothromb Time International Ratio 1.0 0.9-1.1 Test 08/13/17 08:26 08/13/17 10:44 Range/Units Sodium Level 137 136-145 mmol/L Potassium Level 3.9 3.5-5.1 mmol/L Chloride Level 105 98-107 mmol/L Carbon Dioxide Level 25 21-32 mmol/L Anion Gap 8.0 3-11 mmol/L Blood Urea Nitrogen 47 7-18 mg/dl Creatinine 2.46 0.60-1.20 mg/dl Est Creatinine Clear Calc Drug Dose 22.4 ml/min Estimated GFR () 20.9 Estimated GFR (Non- 18.0 BUN/Creatinine Ratio 19.1 10-20 Random Glucose 185 70-99 mg/dl Calcium Level 8.8 8.5-10.1 mg/dl Bedside Glucose 199 70-90 mg/dl
[2017-08-13] MEDS ORDERED: DILT-202 PO (15:07)
[2017-08-13] MEDS ORDERED: LVQ500 PO (15:07)
[2017-08-13] MEDS ORDERED: IMDSR30 PO (15:07)
[2017-08-13] MEDS ORDERED: FURO40TA3 PO (15:07)
--- NOTE | 2017-08-13 15:11 | Discharge Instructions ---
Discharge Instructions Date of Service Aug 13, 2017. Admission Reason for Admission: SOB Discharge Discharge Diagnosis / Problem: Exertional SOB,Episodis Confusion,CAD,DM ,UTI Discharge Goals Goal(s): Prevent Disease Progression Activity Recommendations Activity Limitations: resume your previous activity Take precaution to avoid fall . Instructions / Follow-Up Instructions / Follow-Up Dr Waterman on 08/17/17 at 1:45 PM.Cardiology will call for appointment. Pulmonary will call for appointment .Please have follow up with Coagulation clinic.Will need referral to Psychiatrist and also evaluation to test Driving Ability. Current Hospital Diet Patient's current hospital diet: Diabetes Type 2 Diet, Low Sodium Diet (2gm Na) , AHA Diet (Heart Healthy) Discharge Diet Recommended Diet: AHA Diet (Heart Healthy), Low Sodium Diet (2gm Na), Diabetes Type 2 Diet Fluid Restriction: 1500 ml (6 cups) Pending Studies Studies pending at discharge: no Laboratory Results Hemoglobin A1c Test 08/11/17 04:35 Range/Units Estimated Average Glucose 186 mg/dl Hemoglobin A1c 8.1 H 4.5-5.6 % Lipid Panel Test 08/11/17 04:35 Range/Units Triglycerides Level 160 H 0-150 mg/dl Cholesterol Level 123 0-200 mg/dl HDL Cholesterol 55 mg/dl Cholesterol/HDL Ratio 2.2 LDL Cholesterol, Calculated 36 mg/dl Medical Emergencies . Who to Call and When: Medical Emergencies: If at any time you feel your situation is an emergency, please call 911 immediately. . Non-Emergent Contact Non-Emergency issues call your: Primary Care Provider . Past History Medical & Surgical History: (1) Diabetes mellitus, type II (2) Hypertension (3) CKD (chronic kidney disease), stage IV (4) COPD (chronic obstructive pulmonary disease) (5) Atrial fibrillation (6) Asthma (7) Chronic anticoagulation (8) History of appendectomy (9) History of total left hip arthroplasty (10) H/O heart artery stent (11) Hx of removal of ovary . "Provider Documentation" section prepared by Jan Pacheco. . VTE Core Measure Inpt VTE Proph given/why not?: Warfarin (Coumadin)
[2017-08-13] MEDS ORDERED: WARFARIN SOD 4 MG TAB PO SCH (16:00)
[2017-08-13] MEDS: BUDESONIDE 0.5 MG/2 ML VIAL (PULMICORT) INH SCH (19:15)
[2017-08-14] VITALS: BP 145/55; PULSE 62; TEMP 36.4; O2SAT 99
[2017-08-14] MEDS: BUDESONIDE 0.5 MG/2 ML VIAL (PULMICORT) INH SCH (07:12)
[2017-08-14 07:14] VITALS: PULSE 58; O2SAT 99
[2017-08-14 07:39] VITALS: BP 118/65; PULSE 54; TEMP 36.6; O2SAT 98
[2017-08-14] MEDS: DILTIAZEM HCL 120 MG CAPCR PO SCH (07:43)
[2017-08-14] MEDS: FERROUS SULFATE 325 MG TAB PO SCH (07:44)
[2017-08-14] MEDS: LOSARTAN POTASSIUM 50 MG TAB PO SCH (07:44)
[2017-08-14] MEDS: PANTOprazole SOD 40 MG TAB PO SCH (07:45)
[2017-08-14] MEDS: CALCITRIOL 0.25 MCG CAP PO SCH (07:45)
[2017-08-14] MEDS: ISOSORBIDE MONONITRATE 30 MG TABCR PO SCH (07:45)
[2017-08-14] MEDS ORDERED: FUROSEMIDE 40 MG TAB PO SCH (08:00)
[2017-08-14 08:30] VITALS: O2SAT 98
[2017-08-14] MEDS: INSULIN ASPART 100 UNITS/ML 3 ML PEN SC SCH ×2 (09:04→12:42)
[2017-08-14] MEDS: INSULIN GLARGINE SOLOSTAR 100 UNITS/ML 3 ML PEN SC SCH (09:05)
--- NOTE | 2017-08-14 10:31 | Progress Note ---
Internal Med Progress Note Date of Service: Aug 14, 2017. Provider Documentation: SUBJECTIVE: The patient was seen and examined Admitted with SOB on minimal exertion S/P Negative Right Heart cath Getting PT and doing well Did not go home yesterday because of the issues with driving Denies any new symptoms today Has generalized anxiety-will refer to psychiatry as an OP OBJECTIVE: Vital Signs-as noted below Exam: General-no distress at rest SOB on exertion Eyes-normal ENT-normal Neck-Supple Lungs-Clear to ausucltate bilaterally Decreased breath sound at the bases Heart-Regular,no murmur appreciated Abdomen-Benign,Distended and soft ,no masses,bowel sound present Extremities-Trace edema bilaterally Neuro-[id number] Lab data as noted below. ASSESSMENT & PLAN: Progressive SHORTNESS OF BREATH - directly admitted to tele for right sided heart cath tomorrow - has been having progressive shortness of breath for 2 years - likely multifactorial due to underlying COPD, diastolic CHF, deconditioning - recent outpatient sleep study showed mild FRANCES - nasal CPAP recommended; patient has not had follow up for these results yet - appreciate Cardiology input -appreciate Pulmonary input -S/P Right heart Cancerization -negative finding -PT/OT ordered -doing reasonably well 2 steps -does not require any oxygen Will discharge home today EPISODIC CONFUSION - brain MRI ordered by cardiology::May have Lacunar infarct - consider neuro consult pending results -Clinically stable -Has UTI and getting treatment -Appreciate Neurology input-no recommendation -Confusion resolved CAD - appears stable, no reports of chest pain - continue beta joe, nitrate, and statin -no acute symptoms DIASTOLIC CHF - echo 12/2016 - EF > 70%, grade I diastolic dysfunction, mild TR -Right heart cath today -CXR is not showing any CHF -Hold Lasix for now -Appreciate Medication adjustment by the [employer] HTN - BP controlled, continue losartan, isosorbide, and metoprolol DM - hgb a1c 6.8 03/2017 - on Lantus + Novolog SSI at home; continue with inpatient adjustments -appreciate Pharmacy input CKD STAGE IV - baseline creat runs ~ 2.0 - creat noted to be 2.1 today - continue to monitor, avoid nephrotoxic agents when able -Advised more fluid intake -Remains stable - DVT PROPHYLAXIS - SCDs due to procedure tomorrow DISPOSITION Likely discharge today when the Daughter comes Vital Signs: Date Time Temp Pulse Resp B/P (MAP) Pulse Ox O2 Delivery O2 Flow Rate FiO2 08/14/17 08:30 98 Room Air 2.0 08/14/17 07:39 36.6 54 20 118/65 (82) 98 08/14/17 07:14 58 16 99 Room Air 08/14/17 00:00 36.4 62 20 145/55 (85) 99 Room Air 08/14/17 00:00 Room Air 08/13/17 20:15 63 146/69 (94) 08/13/17 20:00 Room Air 08/13/17 19:15 66 16 97 Room Air 08/13/17 18:16 36.4 62 20 128/67 (87) 100 Room Air 08/13/17 18:05 100 Room Air 08/13/17 16:00 Room Air 08/13/17 15:26 36.5 62 18 99 Room Air 08/13/17 12:00 Room Air 08/13/17 10:46 36.5 62 18 112/62 (79) 99 Room Air Lab Results: Results Past 24 Hours Test 08/13/17 10:44 08/13/17 16:39 08/13/17 21:07 08/14/17 05:47 Range/Units Bedside Glucose 199 136 185 70-90 mg/dl Prothrombin Time 11.0 9.0-12.0 SECONDS Prothromb Time International Ratio 1.0 0.9-1.1 Test 08/14/17 07:47 Range/Units Bedside Glucose 148 70-90 mg/dl
[2017-08-14] MEDS: LEVOFLOXACIN 500 MG TAB PO SCH (12:08)
--- NOTE | 2017-08-15 07:48 | Discharge Summary ---
Discharge Summary Date of Service Aug 15, 2017. Discharge Summary Admission Date: Aug 10, 2017 at 10:49 Discharge Date: Aug 13, 2017 Discharge Disposition: Home with services Principal Diagnosis: Exertional SOB,Episodic Confusion,CAD,DM ,UTI Secondary Diagnoses/Problems: Please see H&P and Hospital Progress note Procedures: Right sided Cath Consultations: Cardiology and Neurology Medication Reconciliation New Medications: Diltiazem HCl (Diltiazem Cd) 120 Mg Capcr 120 MG PO BID for 30 Days, #60 Isosorbide Mononitrate (Isosorbide Mononitrate ER) 30 Mg Tabcr 30 MG PO DAILY for 30 Days, #30 Levofloxacin (Levofloxacin) 500 Mg Tab 500 MG PO DAILY@11 for 5 Days, #5 TAB Changed Medications: Furosemide (Lasix) 40 Mg Tab 1 TAB PO DAILY for 30 Days, #30 TAB 5 Refills (Changed from: BID; 60) Continued Medications: Budesonide (Inhalation) (Pulmicort Respules 0.5MG/2ML) 0.5 Mg/2 Ml Akilah 1 VIAL NEB BID, #120 Calcitriol (Rocaltrol) 0.5 Mcg Cap 0.5 MCG PO DAILY Ferrous Sulfate (Ferrous Sulfate) 325 Mg Tab 325 MG PO DAILY Glucose-Vitamin C (Glucose) 1 Chw Chw 1 TAB PO UD PRN for LOW SUGAR Home O2 Therapy (Oxygen) Gas 3.5 LITERS NA HS Insulin Aspart (Novolog) 100 Units/Ml Inj ACHS SLIDING SCALE Insulin Glargine (Lantus) 100 Unit/Ml Inj 25 UNITS SQ QAM, VIAL Insulin Glargine (Lantus) 100 Unit/Ml Inj 11 UNITS SQ EVENING MEAL, VIAL Levalbuterol Hcl (Levalbuterol Hcl) 1.25 Mg/3 Ml Neb 3 ML INH Q4 PRN for SOB/Wheezing Losartan Potassium (Cozaar) 100 Mg Tab 100 MG PO DAILY Lovastatin (Mevacor) 40 Mg Tab 80 MG PO HS Hold for 1 month Nitroglycerin (Nitrostat) 0.4 Mg Sub 0.4 MG UT PRN PRN for Chest Pain, BTL Omeprazole (Omeprazole) 20 Mg Tab 20 MG PO DAILY Solifenacin (Vesicare) 5 Mg Tab 5 MG PO DAILY, TAB Warfarin Sod (Jantoven) 4 Mg Tab 4 MG PO 4XWK SUN,TUES,THURS,SAT 0n hold Warfarin Sodium (Coumadin) 2 Mg Tab 2 MG PO 3XWK MON,WED, FRI On hold [Utibron] () INH UD Discontinued Medications: Diltiazem Hcl Coated Beads (Cartia Xt) 240 Mg Cap 120 MG PO DAILY for 30 Days, #15 CAP 5 Refills Isosorbide Mononitrate (Isosorbide Mononitrate ER) 60 Mg Tab 60 MG PO DAILY Metolazone (Zaroxolyn) 2.5 Mg Tab 2.5 MG PO WK, TAB Wednesdays Metoprolol Succinate (Metoprolol Succinate ER) 25 Mg Tabcr 12.5 MG PO DAILY, #15 Admission Information HPI (per Admitting provider): Date of Consultation: Aug 10, 2017. Attending Physician: Chan Do M.D. Reason for Consultation: Medical Management History of Present Illness 77 year old female who was directly admitted under cardiology service for evaluation of shortness of breath. Patient has been having exertional shortness of breath for almost 2 years. She has been following with pulmonary and cardiology. During a recent clinic visit with pulmonary, a right heart cath was suggested. Patient has history of COPD and diastolic CHF with a hyperdynamic EF. Patient also has been having memory problems recently. She continues to drive and was actually pulled over the the police recently due to swerving. Patient was found to be confused. Patient reports that she feels she has some mild trouble with short term memory. She denies slurred speech, drooling, unilateral weakness, numbness or tingling. No headache or blurred vision. She reports shortness of breath with minimal exertion. Shortness of breath has been progressively getting worse over the past two years. She denies chest pain and palpitations. No lightheadedness, dizziness, diaphoresis, or syncopal events. She reports a good appetite. No abdominal pain, nausea, vomiting, or diarrhea. She denies fever and chills. No urinary symptom. At the time of my exam, patient is sitting up in the chair, no acute distress. Past Medical/Surgical History Medical Problems: (1) Acute kidney injury Status: Acute (2) KARLEE (acute kidney injury) Status: Acute (3) Anxiety attack Status: Acute (4) Atypical chest pain Status: Acute (5) Bronchitis Status: Acute (6) Candidal intertrigo Status: Acute (7) COPD exacerbation Status: Acute (8) COPD exacerbation Status: Acute (9) Hyperventilation Status: Acute (10) Left sided chest pain Status: Acute (11) Pneumonia Status: Acute (12) Shortness of breath Status: Acute (13) Substernal chest pain Status: Acute (14) Substernal chest pain Status: Acute (15) UTI (urinary tract infection) Status: Acute (16) Weakness Status: Acute Family History FH: cancer MOTHER (cervical) BROTHER (skin, testicular) Social History Smoking Status: Former Smoker Alcohol Use: none Allergies Coded Allergies: Codeine (Verified Allergy, Unknown, UNKNOWN, 05/10/17) INFO FROM PT Aspirin (Verified Adverse Reaction, Intermediate, (ULCER), 05/10/17) Venlafaxine (Verified Adverse Reaction, Intermediate, DROWINESS/ CONFUSION , 05/10/17) Cephalexin (Verified Adverse Reaction, Mild, DROWSINESS, UNABLE TO DRIVE, UPSET STOMACH, 05/10/17) Oxycodone (Verified Adverse Reaction, Mild, n/v, 05/10/17) gmg Home Medications Lasix (Furosemide) 40 Mg Tab 1 Tab PO BID 30 Days Cartia Xt (Diltiazem Hcl Coated Beads) 240 Mg Cap 120 Mg PO DAILY 30 Days [Utibron] INH UD Pulmicort Respules 0.5MG/2ML (Budesonide (Inhalation)) 0.5 Mg/2 Ml Akilah 1 Vial NEB BID Zaroxolyn (Metolazone) 2.5 Mg Tab 2.5 Mg PO WK Wednesdays Cozaar (Losartan Potassium) 100 Mg Tab 100 Mg PO DAILY Oxygen Gas 3.5 Liters NA HS Glucose (Glucose-Vitamin C) 1 Chw Chw 1 Tab PO UD PRN Coumadin (Warfarin Sodium) 2 Mg Tab 2 Mg PO 3XWK MON,WED, FRI On hold Ferrous Sulfate 325 Mg Tab 325 Mg PO DAILY Jantoven (Warfarin Sodium) 4 Mg Tab 4 Mg PO 4XWK SUN,TUES,THURS,SAT 0n hold Isosorbide Mononitrate ER (Isosorbide Mononitrate) 60 Mg Tab 60 Mg PO DAILY Rocaltrol (Calcitriol) 0.5 Mcg Cap 0.5 Mcg PO DAILY Novolog (Insulin Aspart) 100 Units/Ml Inj ACHS SLIDING SCALE Mevacor (Lovastatin) 40 Mg Tab 80 Mg PO HS Lantus (Insulin Glargine) 100 Unit/Ml Inj 11 Units SQ EVENING MEAL Lantus (Insulin Glargine) 100 Unit/Ml Inj 25 Units SQ QAM Metoprolol Succinate ER (Metoprolol Succinate) 25 Mg Tabcr 12.5 Mg PO DAILY Levalbuterol Hcl 1.25 Mg/3 Ml Neb 3 Ml INH Q4 PRN Vesicare (Solifenacin) 5 Mg Tab 5 Mg PO DAILY Nitrostat (Nitroglycerin) 0.4 Mg Sub 0.4 Mg UT PRN PRN Omeprazole 20 Mg Tab 20 Mg PO DAILY Current Inpatient Medications Current Inpatient Medications Medications (Trade) Dose Ordered Sig/Rose Route Start Time Stop Time Status Last Admin Dose Admin Acetaminophen (Tylenol Tab) 650 mg Q4H PRN PO 08/10/17 12:00 09/09/17 11:59 Nitroglycerin (Nitrostat Tab) 0.4 mg UD PRN SL 08/10/17 12:00 09/09/17 11:59 Insulin Glargine (Lantus Solostar Pen) 15 units Q12 SC 08/10/17 21:00 09/09/17 20:59 UNV Insulin Aspart (novoLOG ASPART) SLIDING SCALE If C... ACHS SC 08/10/17 16:15 09/09/17 16:14 UNV Glucose (Glucose 40% Gel) 15-30 GRAMS 15 GRAMS... UD PRN PO 08/10/17 13:30 09/09/17 13:29 UNV Glucose (Glucose Chew Tab) 4-8 Tablets 4 Tabl... UD PRN PO 08/10/17 13:30 09/09/17 13:29 UNV Dextrose (Dextrose 50% 50ML Syringe) 25-50ML OF 50% DW IV FOR... UD PRN IV 08/10/17 13:30 09/09/17 13:29 UNV Glucagon (Glucagon Inj) 1 mg UD PRN SQ 08/10/17 13:30 09/09/17 13:29 UNV Miscellaneous Information (Consult Glycemic Management Pharmacy) 1 ea ONE STAT N/A 08/10/17 13:22 08/10/17 13:23 UNV Budesonide (Pulmicort Respules 0.5MG/ 2ML Neb Soln) 0.5 mg BID INH 08/10/17 21:00 09/09/17 20:59 UNV Diltiazem HCl (Cardizem Cd Cap) 120 mg DAILY PO 08/11/17 09:00 09/10/17 08:59 UNV Ferrous Sulfate (Feosol Tab) 325 mg DAILY PO 08/11/17 09:00 09/10/17 08:59 UNV Isosorbide Mononitrate (Imdur Ext Rel Tab) 60 mg DAILY PO 08/11/17 09:00 09/10/17 08:59 UNV Levalbuterol (Xopenex 1.25MG/ 3ML Neb) 3.75 mg Q4 PRN INH 08/10/17 13:30 09/09/17 13:29 UNV Losartan Potassium (coZAAR TAB) 100 mg DAILY PO 08/11/17 09:00 09/10/17 08:59 UNV Metoprolol Succinate (Toprol Xl Tab) 12.5 mg DAILY PO 08/11/17 09:00 09/10/17 08:59 UNV Non-Formulary Medication (Calcitriol (Rocaltrol)) 0.5 mcg DAILY PO 08/11/17 09:00 09/10/17 08:59 UNV Non-Formulary Medication (Lovastatin (Mevacor)) 80 mg HS PO 08/10/17 21:00 09/09/17 20:59 UNV Non-Formulary Medication (Omeprazole ) 20 mg DAILY PO 08/11/17 09:00 09/10/17 08:59 UNV Non-Formulary Medication (Solifenacin (Vesicare)) 5 mg DAILY PO 08/11/17 09:00 09/10/17 08:59 UNV Review of Systems ROS per HPI, all other systems reviewed and negative Physical Exam Date Time Temp Pulse Resp B/P (MAP) Pulse Ox O2 Delivery O2 Flow Rate FiO2 08/10/17 11:30 36.6 75 20 162/56 100 Room Air General Appearance: WD/WN, no apparent distress Head: normocephalic, atraumatic Eyes: normal inspection, EOMI, sclerae normal ENT: hearing grossly normal, + pertinent finding (mucous membranes moist) Neck: supple, no JVD, trachea midline Respiratory/Chest: no respiratory distress, + decreased breath sounds Cardiovascular: regular rate, rhythm, normal peripheral pulses, + pertinent finding (trace edema BLLE) Abdomen/GI: normal bowel sounds, non tender, soft, no organomegaly Extremities/Musculoskelatal: normal inspection, no calf tenderness, normal capillary refill Neurologic/Psych: no motor/sensory deficits, alert, normal mood/affect, oriented x 3 Skin: + pertinent finding (dry, reddened, flakey skin BLLE) Laboratory Results Last 24 Hours Test 08/10/17 12:15 08/10/17 12:21 08/10/17 12:28 08/10/17 13:22 Bedside Glucose 214 mg/dl 225 mg/dl White Blood Count 4.57 K/uL Red Blood Count 3.38 M/uL Hemoglobin 10.7 g/dL Hematocrit 32.1 % Mean Corpuscular Volume 95.0 fL Mean Corpuscular Hemoglobin 31.7 pg Mean Corpuscular Hemoglobin Concent 33.3 g/dl Platelet Count 91 K/uL Mean Platelet Volume 10.1 fL Neutrophils (%) (Auto) 63.4 % Lymphocytes (%) (Auto) 25.4 % Monocytes (%) (Auto) 8.8 % Eosinophils (%) (Auto) 2.0 % Basophils (%) (Auto) 0.2 % Neutrophils # (Auto) 2.90 K/uL Lymphocytes # (Auto) 1.16 K/uL Monocytes # (Auto) 0.40 K/uL Eosinophils # (Auto) 0.09 K/uL Basophils # (Auto) 0.01 K/uL RDW Standard Deviation 47.4 fL RDW Coefficient of Variation 13.6 % Immature Granulocyte % (Auto) 0.2 % Immature Granulocyte # (Auto) 0.01 K/uL Erythrocyte Sedimentation Rate 18 mm/hr Activated Partial Thromboplast Time 26.9 SECONDS Partial Thromboplastin Ratio 1.0 Sodium Level 138 mmol/L Potassium Level 4.0 mmol/L Chloride Level 101 mmol/L Carbon Dioxide Level 30 mmol/L Anion Gap 7.0 mmol/L Blood Urea Nitrogen 50 mg/dl Creatinine 2.14 mg/dl Est Creatinine Clear Calc Drug Dose 25.4 ml/min Estimated GFR () 24.7 Estimated GFR (Non- 21.3 BUN/Creatinine Ratio 23.5 Random Glucose 249 mg/dl Calcium Level 9.4 mg/dl Total Bilirubin 0.5 mg/dl Direct Bilirubin 0.2 mg/dl Aspartate Amino Transf (AST/SGOT) 15 U/L Alanine Aminotransferase (ALT/SGPT) 23 U/L Alkaline Phosphatase 92 U/L Pro-B-Type Natriuretic Peptide 1240 pg/ml Total Protein 6.2 gm/dl Albumin 3.0 gm/dl Globulin 3.2 gm/dl Albumin/Globulin Ratio 0.9 Thyroid Stimulating Hormone (TSH) 1.570 uIu/ml Assessment & Plan SHORTNESS OF BREATH - directly admitted to [facility] for right sided heart cath tomorrow - has been having progressive shortness of breath for 2 years - likely multifactorial due to underlying COPD, diastolic CHF, deconditioning - planned right heart cath to complete work up - recent outpatient sleep study showed mild FRANCES - nasal CPAP recommended; patient has not had follow up for these results yet - follows with Dr. Hernandez / Vera Viera PA-C with pulmonary EPISODIC CONFUSION - brain MRI ordered by cardiology - consider neuro consult pending results - ? due to untreated FRANCES and/or developing Alzheimer's or dementia CAD - appears stable, no reports of chest pain - continue beta joe, nitrate, and statin DIASTOLIC CHF - currently euvolemic - echo 12/2016 - EF > 70%, grade I diastolic dysfunction, mild TR - holding diuretics due to cath tomorrow HTN - BP controlled, continue losartan, isosorbide, and metoprolol DM - hgb a1c 6.8 03/2017 - on Lantus + Novolog SSI at home; continue with inpatient adjustments CKD STAGE IV - baseline creat runs ~ 2.0 - creat noted to be 2.1 today - continue to monitor, avoid nephrotoxic agents when able DVT PROPHYLAXIS - SCDs due to procedure tomorrow Thank you for this consultation. We will follow the patient with you during their hospital stay. You can reach a member of the [facility] Hospitalist Team 23/03 via pager @ . ADDENDUM: This is a 77 year old female with a PMH of insulin dependent DM2, diastolic CHF , COPD, CAD, paroxysmal A. Fib on long-term anticoagulation, CKD stage IV - presents secondary to worsening shortness of breath. She is directly admitted to the cardiology service for a possible R heart cath for further diagnostic purposes. She states that the shortness of breath is intermittent without palpitations or chest pain. Currently, while seated - no shortness of breath noted. Besides the intermittent shortness of breath, patient has been having confusion/forgetfulness issues. She has had issues remembering why or where she was driving to - to the point where a ship officer had to escort her to her sleep study. Currently, she is oriented x3 Plan: Shortness of Breath Right Heart Cath in AM check echo COPD, Diastolic CHF, FRANCES and possibly obesity hypoventilation playing a part pulmonary consulted Paroxysmal A. Fib currently NSR cont. b-joe restart anticoagulation as per cardiology afterwards for her A. Fib monitor in tele Confusion/Forgetfulness check a brain MRI IDDM2 Insulin 15 units q12 for now - she takes a higher dose at home, monitor BSGs with her NPO status after midnight for cath on 08/11 - insulin sliding scale last ha1c = 6.8% in March 2017 CKD stage IV creat close to baseline around 2.0-2.1 no urinary symptoms, UA noted; urine culture pending when able, avoid nephrotoxic agents DVT ppx SCDs for procedure in AM - restart anticoagulation when okay with cardiology FULL CODE Hospital Course Progressive SHORTNESS OF BREATH - directly admitted to tele for right sided heart cath tomorrow - has been having progressive shortness of breath for 2 years - likely multifactorial due to underlying COPD, diastolic CHF, deconditioning - recent outpatient sleep study showed mild FRANCES - nasal CPAP recommended; patient has not had follow up for these results yet - appreciate Cardiology input -appreciate Pulmonary input -S/P Right heart Cancerization -negative finding -PT/OT ordered -doing reasonably well 2 steps -does not require any oxygen Will discharge home today EPISODIC CONFUSION - brain MRI ordered by cardiology::May have Lacunar infarct - consider neuro consult pending results -Clinically stable -Has UTI and getting treatment -Appreciate Neurology input-no recommendation -Confusion resolved CAD - appears stable, no reports of chest pain - continue beta joe, nitrate, and statin -no acute symptoms DIASTOLIC CHF - echo 12/2016 - EF > 70%, grade I diastolic dysfunction, mild TR -Right heart cath today -CXR is not showing any CHF -Hold Lasix for now -Appreciate Medication adjustment by the Daycare Provider HTN - BP controlled, continue losartan, isosorbide, and metoprolol DM - hgb a1c 6.8 03/2017 - on Lantus + Novolog SSI at home; continue with inpatient adjustments -appreciate Pharmacy input CKD STAGE IV - baseline creat runs ~ 2.0 - creat noted to be 2.1 today - continue to monitor, avoid nephrotoxic agents when able -Advised more fluid intake -Remains stable - DVT PROPHYLAXIS - SCDs due to procedure tomorrow DISPOSITION Likely discharge today when the Daughter comes Total time spent on discharge = 35 minutes This includes examination of the patient, discharge planning, medication reconciliation, and communication with other providers. Discharge Instructions Date of Service Aug 13, 2017. Admission Reason for Admission: SOB Discharge Discharge Diagnosis / Problem: Exertional SOB,Episodis Confusion,CAD,DM ,UTI Discharge Goals Goal(s): Prevent Disease Progression Activity Recommendations Activity Limitations: resume your previous activity Take precaution to avoid fall . Instructions / Follow-Up Instructions / Follow-Up Dr Waterman on 08/17/17 at 1:45 PM.Cardiology will call for appointment. Pulmonary will call for appointment .Please have follow up with Coagulation clinic.Will need referral to Psychiatrist and also evaluation to test Driving Ability. Current Hospital Diet Patient's current hospital diet: Diabetes Type 2 Diet, Low Sodium Diet (2gm Na) , AHA Diet (Heart Healthy) Discharge Diet Recommended Diet: AHA Diet (Heart Healthy), Low Sodium Diet (2gm Na), Diabetes Type 2 Diet Fluid Restriction: 1500 ml (6 cups) Pending Studies Studies pending at discharge: no Laboratory Results Hemoglobin A1c Test 08/11/17 04:35 Range/Units Estimated Average Glucose 186 mg/dl Hemoglobin A1c 8.1 H 4.5-5.6 % Lipid Panel Test 08/11/17 04:35 Range/Units Triglycerides Level 160 H 0-150 mg/dl Cholesterol Level 123 0-200 mg/dl HDL Cholesterol 55 mg/dl Cholesterol/HDL Ratio 2.2 LDL Cholesterol, Calculated 36 mg/dl Medical Emergencies . Who to Call and When: Medical Emergencies: If at any time you feel your situation is an emergency, please call 911 immediately. . Non-Emergent Contact Non-Emergency issues call your: Primary Care Provider . Past History Medical & Surgical History: (1) Diabetes mellitus, type II (2) Hypertension (3) CKD (chronic kidney disease), stage IV (4) COPD (chronic obstructive pulmonary disease) (5) Atrial fibrillation (6) Asthma (7) Chronic anticoagulation (8) History of appendectomy (9) History of total left hip arthroplasty (10) H/O heart artery stent (11) Hx of removal of ovary . "Provider Documentation" section prepared by Jan Pacheco. . VTE Core Measure Inpt VTE Proph given/why not?: Warfarin (Coumadin) <Electronically signed by Jan Pacheco M.D.> Signed: 08/14/17 5232 Additional Copies To Kerry Waterman D.O.
[2017-09-23] MEDS ORDERED: FURO40TA3 PO (13:16)
--- NOTE | 2017-10-02 08:53 | EDITING REQUIRED CODING QUERY ---
The patient is not seen by me. CODING QUERY To promote full compliance with coding requirements relating to patient care, provider participation is requested in all cases of outpatient coder uncertainty. Please assist us with the question(s) below: Coding Question(s): Please clarify below, in your clinical opinion, regarding documentation under Episodic Confusion - brain MRI ordered by cardiology:: May have Lacunar infarct. ( ) Possible Lacunar Infarct ( ) No Possible Lacunar Infarct - this was ruled out Physician's Response(s): Thank you Davina Lr Principal Diagnosis: "_that condition established after study, to be chiefly responsible for occasioning the admission of the patient to the hospital for care." Co-Existing Principal Diagnosis: "_when two or more diagnoses equally meet the criteria for principal diagnosis as determined by the circumstances of admission, diagnostic work up, and/or therapy provided, and the Alphabetic Index, Tabular List, or another coding guideline does not provide sequencing direction, any one of the diagnoses may be sequenced first." "When the physician has documented what appears to be a current diagnosis in the body of the record, but has not included the diagnosis in the final diagnostic statement, the physician should be asked whether the diagnosis should be added." (Source Coding [facility] 2 QTR90. p3-4)
[2017-10-06] MEDS ORDERED: CRG625 PO (18:24)
[2017-10-06] MEDS ORDERED: ASPEC81 PO (18:24)
[2017-10-06] MEDS ORDERED: LSX20 PO (18:24)
[2017-10-06] MEDS ORDERED: NRV5 PO (18:24)
[2017-10-06] MEDS ORDERED: CMD2 PO (18:24)
[2017-10-06] MEDS ORDERED: CMD4 PO (18:24)
[2017-10-06] MEDS ORDERED: INSDGIPEN SQ (18:24)
[2017-10-06] MEDS ORDERED: PRED10TA PO (18:27)
[2017-10-07] MEDS ORDERED: CMD4 PO (16:23)
[2017-10-07] MEDS ORDERED: PRED10TA PO (16:23)
[2017-10-07] MEDS ORDERED: ASPEC81 PO (16:23)
[2017-10-07] MEDS ORDERED: CMD2 PO (16:23)
[2017-10-07] MEDS ORDERED: LSX20 PO (16:23)
[2017-10-07] MEDS ORDERED: INSDGIPEN SQ (16:23)
[2017-10-07] MEDS ORDERED: NRV5 PO (16:23)
[2017-10-07] MEDS ORDERED: CRG625 PO (16:23)
[2017-10-07] MEDS ORDERED: ASPCH81 OR (16:25)
--- NOTE | 2017-10-12 12:17 | EDITING REQUIRED CODING QUERY ---
CODING QUERY To promote full compliance with coding requirements relating to patient care, provider participation is requested in all cases of shear scrapman uncertainty. Please assist us with the question(s) below: Coding Question(s): Please clarify below, in your clinical opinion, regarding documentation under Episodic Confusion - brain MRI ordered by cardiology:: May have Lacunar infarct. ( x) Possible Acute/Sub-acute Lacunar Infarct ( ) No Possible Lacunar Infarct - this was ruled out Physician's Response(s): Thank you Davina Lr Principal Diagnosis: "_that condition established after study, to be chiefly responsible for occasioning the admission of the patient to the hospital for care." Co-Existing Principal Diagnosis: "_when two or more diagnoses equally meet the criteria for principal diagnosis as determined by the circumstances of admission, diagnostic work up, and/or therapy provided, and the Alphabetic Index, Tabular List, or another coding guideline does not provide sequencing direction, any one of the diagnoses may be sequenced first." "When the physician has documented what appears to be a current diagnosis in the body of the record, but has not included the diagnosis in the final diagnostic statement, the physician should be asked whether the diagnosis should be added." (Source Coding Clinic 2 QTR90. p3-4)
== END 2017-08-14 13:35 | disposition home health service (06) | DRG 204 ==
LOC: C.2E 10:49 → C.2T 08-11 16:38 → ENRESERV 08-13 17:18 → C.4E 08-13 18:08
PROVIDERS: ADMIT Internal Medicine Cardiovascular Disease; ATTEND Internal Medicine
PROC: 4A023N6 Measurement of Cardiac Sampling and Pressure, Right Heart, Percutaneous Approach (ICD-10-PCS; principal; 2017-08-12 10:03)
DX: R06.02 Shortness of breath (principal); I63.8 Other cerebral infarction; I50.32 Chronic diastolic (congestive) heart failure; N18.4 Chronic kidney disease, stage 4 (severe); I13.0 Hypertensive heart and chronic kidney disease with heart failure and stage 1 through stage 4 chronic kidney disease, or unspecified chronic kidney disease; Z68.41 Body mass index [BMI] 40.0-44.9, adult; N39.0 Urinary tract infection, site not specified; G47.33 Obstructive sleep apnea (adult) (pediatric); R41.0 Disorientation, unspecified; J44.9 Chronic obstructive pulmonary disease, unspecified; I25.10 Atherosclerotic heart disease of native coronary artery without angina pectoris; I25.9 Chronic ischemic heart disease, unspecified; E11.22 Type 2 diabetes mellitus with diabetic chronic kidney disease; E11.42 Type 2 diabetes mellitus with diabetic polyneuropathy; E11.43 Type 2 diabetes mellitus with diabetic autonomic (poly)neuropathy; I48.0 Paroxysmal atrial fibrillation; E78.5 Hyperlipidemia, unspecified; K21.9 Gastro-esophageal reflux disease without esophagitis; G25.81 Restless legs syndrome; E66.9 Obesity, unspecified; Z79.899 Other long term (current) drug therapy; Z79.4 Long term (current) use of insulin; Z79.01 Long term (current) use of anticoagulants; Z87.891 Personal history of nicotine dependence; Z80.49 Family history of malignant neoplasm of other genital organs; Z80.43 Family history of malignant neoplasm of testis; Z80.8 Family history of malignant neoplasm of other organs or systems

== ENCOUNTER 2017-09-23 09:15 | Inpatient (IN) | payer OTHER ==
[~2017-09-23] VITALS: Ht 160 cm; Wt 104.7 kg
[2017-09-23] VITALS (8 sets, daily range): BP systolic 122–167; BP diastolic 44–50; PULSE 80–180; TEMP 36.6–36.8; O2SAT 93–99; BMI 42.6
[~2017-09-23 09:15] MED LIST changes: +DILT-202 PO; -DILT120C PO; -FLUT1INH3 INH; +IMDSR30 PO; -IMDSR60 PO; +LVQ500 PO; -METO2.5T PO; -TPRSR/25 PO; +UTIBRON INH
[2017-09-23] MEDS ORDERED: METHYLPREDNISOLONE 125 MG VIAL IV STA (09:42)
[2017-09-23 10:07] LABS: BASO % 0.2 %; BASO ABS # 0.01 K/uL (0-0.2); EOS % 1.1 %; EOS ABS # 0.06 K/uL (0-0.5); HEMATOCRIT 34.5 % (37-47); HEMOGLOBIN 11.3 g/dL (12.0-16.0); LYMPH % 12.5 %; LYMPH ABS # 0.69 K/uL (1.2-3.4); MEAN CELL VOLUME 96.9 fL (80-100); MEAN CORPUSCULAR HEMOGLOBIN 31.7 pg (25-34); MEAN CORPUSCULAR HGB CONC 32.8 g/dl (32-36); MEAN PLATELET VOLUME 10.3 fL (7.4-10.4); MONO ABS # 0.39 K/uL (0.11-0.59); NEUT % 79.2 %; NEUT ABS # 4.39 K/uL (1.4-6.5); PLATELET COUNT 103 K/uL (130-400); RED CELL DISTRIBUTION WIDTH CV 13.7 % (11.5-14.5); RED CELL DISTRIBUTION WIDTH SD 48.6 fL (36.4-46.3); WHITE BLOOD COUNT 5.54 K/uL (4.8-10.8)
--- NOTE | 2017-09-23 10:07 | DIAGNOSTIC IMAGING REPORT ---
CHEST ONE VIEW PORTABLE HISTORY: Atypical CHEST PAIN COMPARISON: Chest 05/10/2017. FINDINGS: No pneumothorax. Trace left pleural effusion. This is improved. Bibasilar linear densities favor subsegmental atelectasis. The heart is borderline enlarged. There is mild pulmonary vascular congestion without overt edema. IMPRESSION: 1. Mild central pulmonary vascular congestion without overt edema. 2. Trace left pleural effusion which is improved. Electronically signed by: Raghavendra Cisneros M.D. 09/23/2017 10:05 AM Dictated Date/Time: 09/23/2017 10:03 AM
[2017-09-23 10:17] LABS: INR 1.2 (0.9-1.1)
[2017-09-23 10:27] LABS: ALBUMIN 3.3 gm/dl (3.4-5.0); ALT/SGPT 23 U/L (12-78); AST/SGOT 20 U/L (15-37); BLOOD UREA NITROGEN 27 mg/dl (7-18); CALCIUM 9.1 mg/dl (8.5-10.1); CARBON DIOXIDE 29 mmol/L (21-32); CREATININE 1.63 mg/dl (0.60-1.20); GLUCOSE 133 mg/dl (70-99); LIPASE 140 U/L (73-393); POTASSIUM 4.5 mmol/L (3.5-5.1); SODIUM 139 mmol/L (136-145)
[2017-09-23 10:33] LABS: ALKALINE PHOSPHATASE 106 U/L (45-117); TOTAL PROTEIN 6.8 gm/dl (6.4-8.2)
[2017-09-23] MEDS ORDERED: FUROSEMIDE 40 MG/4 ML VIAL IV STA (10:40)
--- NOTE | 2017-09-23 11:02 | EMERGENCY ROOM VISIT NOTE ---
History Report prepared by Natalya: Kash Loving Under the Supervision of: Dr. Henrry Jules M.D. First contact with patient: 09:36 Chief Complaint: RESPIRATORY PROBLEMS Stated Complaint: CHEST PAIN/SHORTNESS OF BREATH History of Present Illness The patient is a 77 year old female who presents to the Emergency Room with complaints of cough, congestion, sob of abrupt onset this morning. Denies CP, n/ v, diarrhea, RUIZ, dizziness. Review of Systems See HPI for pertinent positives and negatives. A total of ten systems were reviewed and were otherwise negative. Past Medical & Surgical Medical Problems: (1) Asthma (2) Atrial fibrillation (3) C. difficile colitis (4) CHF (congestive heart failure) (5) Chronic anticoagulation (6) CKD (chronic kidney disease), stage IV (7) COPD (chronic obstructive pulmonary disease) (8) CVA (cerebral vascular accident) (9) Diabetes mellitus, type II (10) Diabetic neuropathy (11) Diabetic peripheral neuropathy associated with type 2 diabetes mellitus (12) Gastroparesis (13) GERD (gastroesophageal reflux disease) (14) History of coronary artery disease (15) History of GI bleed (16) Hyperlipidemia (17) Hypertension (18) Migraine (19) Pulmonary embolism (20) Sleep apnea Surgical Problems: (1) H/O heart artery stent (2) History of appendectomy (3) History of total left hip arthroplasty (4) Hx of removal of ovary Family History FH: cancer MOTHER (cervical) BROTHER (skin, testicular) Social History Smoking Status: Former Smoker Alcohol Use: none Marital Status: Occupation Status: retired Current/Historical Medications Scheduled Budesonide (Inhalation) (Pulmicort Respules 0.5MG/2ML), 1 VIAL NEB BID Diltiazem HCl (Diltiazem Cd), 120 MG PO BID Ferrous Sulfate (Ferrous Sulfate), 325 MG PO DAILY Furosemide (Lasix), 1 TAB PO BID Home O2 Therapy (Oxygen), 3.5 LITERS NA HS Insulin Aspart (Novolog), ACHS Insulin Glargine (Lantus), 25 UNITS SQ QAM Insulin Glargine (Lantus), 11 UNITS SQ EVENING MEAL Isosorbide Mononitrate (Isosorbide Mononitrate ER), 30 MG PO DAILY Losartan Potassium (Cozaar), 100 MG PO DAILY Lovastatin (Mevacor), 80 MG PO HS Omeprazole (Omeprazole), 20 MG PO DAILY Solifenacin (Vesicare), 5 MG PO DAILY Warfarin Sod (Jantoven), 4 MG PO 4XWK Warfarin Sodium (Coumadin), 2 MG PO 3XWK [Utibron], INH UD Scheduled PRN Glucose-Vitamin C (Glucose), 1 TAB PO UD PRN for LOW SUGAR Levalbuterol Hcl (Levalbuterol Hcl), 3 ML INH Q4 PRN for SOB/Wheezing Nitroglycerin (Nitrostat), 0.4 MG UT PRN PRN for Chest Pain Allergies Coded Allergies: Codeine (Verified Allergy, Unknown, UNKNOWN, 09/23/17) INFO FROM PT Aspirin (Verified Adverse Reaction, Intermediate, (ULCER), 09/23/17) Venlafaxine (Verified Adverse Reaction, Intermediate, DROWINESS/ CONFUSION , 09/23/17) Cephalexin (Verified Adverse Reaction, Mild, DROWSINESS, UNABLE TO DRIVE, UPSET STOMACH, 09/23/17) Oxycodone (Verified Adverse Reaction, Mild, n/v, 09/23/17) gmg Physical Exam Vital Signs Date Time Temp Pulse Resp B/P (MAP) Pulse Ox O2 Delivery O2 Flow Rate FiO2 09/23/17 12:01 116 24 174/108 95 09/23/17 11:31 180 09/23/17 11:14 120 25 94 Room Air 09/23/17 10:47 102 32 98 Room Air 09/23/17 09:48 120 24 184/128 96 Room Air 09/23/17 09:32 127 09/23/17 09:15 99 Room Air 09/23/17 09:15 37.4 110 26 146/129 99 Room Air Physical Exam GENERAL: Awake, alert, uncomfortable and dyspneic-appearing, in no distress HENT: Normocephalic, atraumatic. Oropharynx unremarkable. Dry, cracked mucous membranes. EYES: Normal conjunctiva. Sclera non-icteric. NECK: Supple. No nuchal rigidity. FROM. No JVD. RESPIRATORY: Diminished breath sounds anteriorly and at the bases with scant scattered wheezes. CARDIAC: Regular rate, normal rhythm. Extremities warm and well perfused. Pulses equal. ABDOMEN: Obese abdomen. Soft, non-distended. No tenderness to palpation. No rebound or guarding. No masses. RECTAL: Deferred. MUSCULOSKELETAL: Chest examination reveals no tenderness. The back is symmetrical on inspection without obvious abnormality. There is no CVA tenderness to palpation. No joint edema. LOWER EXTREMITIES: 1+ bilateral lower extremity edema and symmetric. No discoloration. NEURO: Normal sensorium. No sensory or motor deficits noted. SKIN: No rash or jaundice noted. Medical Decision & Procedures ER Provider Diagnostic Interpretation: Radiology results as stated below per my review and radiologist interpretation: CHEST ONE VIEW PORTABLE HISTORY: Atypical CHEST PAIN COMPARISON: Chest 05/10/2017. FINDINGS: No pneumothorax. Trace left pleural effusion. This is improved. Bibasilar linear densities favor subsegmental atelectasis. The heart is borderline enlarged. There is mild pulmonary vascular congestion without overt edema. IMPRESSION: 1. Mild central pulmonary vascular congestion without overt edema. 2. Trace left pleural effusion which is improved. Electronically signed by: Raghavendra Cisneros M.D. 09/23/2017 10:05 AM Dictated Date/Time: 09/23/2017 10:03 AM Laboratory Results 09/23/17 09:46 Red Blood Count 3.56, Mean Corpuscular Volume 96.9, Mean Corpuscular Hemoglobin 31.7, Mean Corpuscular Hemoglobin Concent 32.8, Mean Platelet Volume 10.3, Neutrophils (%) (Auto) 79.2, Lymphocytes (%) (Auto) 12.5, Monocytes (%) (Auto) 7.0, Eosinophils (%) (Auto) 1.1, Basophils (%) (Auto) 0.2, Neutrophils # (Auto) 4.39, Lymphocytes # (Auto) 0.69, Monocytes # (Auto) 0.39, Eosinophils # (Auto) 0.06, Basophils # (Auto) 0.01 09/23/17 09:46 Test 09/23/17 09:42 09/23/17 09:46 09/23/17 10:38 Influenza Type A Antigen Neg for Influ A (NEG) Influenza Type B Antigen Neg for Influ B (NEG) White Blood Count 5.54 K/uL (4.8-10.8) Red Blood Count 3.56 M/uL (4.2-5.4) Hemoglobin 11.3 g/dL (12.0-16.0) Hematocrit 34.5 % (37-47) Mean Corpuscular Volume 96.9 fL (80-100) Mean Corpuscular Hemoglobin 31.7 pg (25-34) Mean Corpuscular Hemoglobin Concent 32.8 g/dl (32-36) Platelet Count 103 K/uL (130-400) Mean Platelet Volume 10.3 fL (7.4-10.4) Neutrophils (%) (Auto) 79.2 % Lymphocytes (%) (Auto) 12.5 % Monocytes (%) (Auto) 7.0 % Eosinophils (%) (Auto) 1.1 % Basophils (%) (Auto) 0.2 % Neutrophils # (Auto) 4.39 K/uL (1.4-6.5) Lymphocytes # (Auto) 0.69 K/uL (1.2-3.4) Monocytes # (Auto) 0.39 K/uL (0.11-0.59) Eosinophils # (Auto) 0.06 K/uL (0-0.5) Basophils # (Auto) 0.01 K/uL (0-0.2) RDW Standard Deviation 48.6 fL (36.4-46.3) RDW Coefficient of Variation 13.7 % (11.5-14.5) Immature Granulocyte % (Auto) 0.0 % Immature Granulocyte # (Auto) 0.00 K/uL (0.00-0.02) Prothrombin Time 13.0 SECONDS (9.0-12.0) Prothromb Time International Ratio 1.2 (0.9-1.1) Anion Gap 4.0 mmol/L (3-11) Estimated GFR () 34.4 Estimated GFR (Non- 29.7 BUN/Creatinine Ratio 16.5 (10-20) Calcium Level 9.1 mg/dl (8.5-10.1) Total Bilirubin 0.7 mg/dl (0.2-1) Direct Bilirubin 0.2 mg/dl (0-0.2) Aspartate Amino Transf (AST/SGOT) 20 U/L (15-37) Alanine Aminotransferase (ALT/SGPT) 23 U/L (12-78) Alkaline Phosphatase 106 U/L (45-117) Pro-B-Type Natriuretic Peptide 3563 pg/ml (0-1800) Total Protein 6.8 gm/dl (6.4-8.2) Albumin 3.3 gm/dl (3.4-5.0) Lipase 140 U/L (73-393) Venous Blood pH 7.40 (7.36-7.41) Venous Blood Partial Pressure CO2 47 mmHg (38.0-50.0) Venous Blood Partial Pressure O2 36 mmHg Venous Blood HCO3 29 mmol/L Venous Blood Oxygen Saturation 66.0 % Venous Blood Base Excess 3.1 mEq/L Lactic Acid Level 1.9 mmol/L (0.4-2.0) Laboratory results reviewed by me Medications Administered Medications (Trade) Dose Ordered Sig/Rose Route Start Time Stop Time Status Last Admin Dose Admin Methylprednisolone Sodium Succinate (Solu-Medrol IV) 125 mg NOW STAT IV 09/23/17 09:42 09/23/17 09:51 DC 09/23/17 10:56 125 MG Furosemide (Lasix Inj) 40 mg NOW STAT IV 09/23/17 10:40 09/23/17 10:42 DC 09/23/17 10:56 40 MG ECG Indication: SOB/dyspnea Rate (beats per minute): 108 Rhythm: atrial fibrillation (with RVR) Findings: no acute ischemic change, other (normal axis) Change: Patient's EKG interpreted by me. ED Course 0936: The patient was evaluated in room B7. A complete history and physical exam was performed. 0942: Solu-Medrol 125mg IV 0945: DuoNeb 12ml INH 1040: Lasix 40mg IV 1154: Upon reexamination, the patient was resting comfortably. I discussed the test results and treatment plan with her. The patient will be evaluated for further management. 1209: I discussed the patient with Tom Niño - She will evaluate the patient for further treatment. 1227: Diltiazem HCl 120mg PO Medical Decision I reviewed the patient's past medical history, medications, and the nursing notes as described above. Differential diagnosis: Etiologies such as infections, reactive airway disease, pneumonia, pneumothorax , COPD, CHF, cardiac ischemia, pulmonary embolism, musculoskeletal, gastrointestinal, as well as others were entertained. The patient is a 77-year-old woman with a past medical history of COPD, grade 1 diastolic heart failure who presents to emergency department with worsening shortness of breath since this morning per history of present illness. Ill the patient is uncomfortable, dyspneic but in no acute distress, afebrile, rate in the low 100s, blood pressure hypertensive systolic 180s otherwise stable. The patient has diminished breath sounds anteriorly and at the bases. EKG is non -ischemic. Troponin negative. BNP elevated to 3000s which is increased from prior. Thus symptoms most likely related to CHF/A. fib. Of note patient was ordered for nebulizer as well as steroids for likely COPD component component however given the patient had not taken her morning dose of diltiazem she had labile heart rate and was unable to tolerate the nebulizer without tachycardia to 180s and so neb was deferred. Patient was given IV dose of Lasix. Case was discussed with Tom Niño hospitalist who will admit the patient for further management. Medication Reconcilliation Current Medication List: was personally reviewed by me Blood Pressure Screening Patient's blood pressure: Elevated blood pressure Monitored by the hospitalist Consults Time Called: 1159 Consulting Physician: Tom Niño Returned Call: 1209 I discussed the patient with Tom Niño - She will evaluate the patient for further treatment. Impression Primary Impression: Atrial fibrillation with rapid ventricular response Additional Impression: CHF (congestive heart failure) Scribe Attestation The scribe's documentation has been prepared under my direction and personally reviewed by me in its entirety. I confirm that the note above accurately reflects all work, treatment, procedures, and medical decision making performed by me. Departure Information Dispostion Being Evaluated By Hospitalist Prescriptions Furosemide (LASIX) 40 Mg Tab 1 TAB PO BID for 30 Days, #60 TAB 5 Refills Prov: Susana Kumar M.D. 09/23/17 Referrals Kerry Waterman D.O. (PCP) Patient Instructions My [facility] Problem Qualifiers
[2017-09-23] MEDS: ALBUT/IPRATROP 3MG/0.5MG NEB 3 ML VIAL INH ONE ×3 (11:09→11:31)
[2017-09-23 11:11] LABS: INFLUENZA B ANTIGEN Neg for Influ B (NEG)
[2017-09-23] MEDS ORDERED: DILTIAZEM HCL 120 MG CAPCR PO STA (12:27)
[2017-09-23] MEDS ORDERED: DILTIAZEM BOLUS / DRIP IV STA (12:58)
--- NOTE | 2017-09-23 13:06 | History and Physical ---
History & Physical Date & Time of Service: Sep 23, 2017 at 13:06 Chief Complaint: Chest Pain/Shortness Of Breath Primary Care Physician: Kerry Waterman D.O. History of Present Illness Source: patient This is a 77 yo F with past medical hx of COPD on nocturnal 3 L 02 via NC, Paroxysmal Afib on Coumadin , CAD , Type 2 DM on insulin , HTN woke up this morning with sudden onset of severe SOB , felt she could not breath , very weak and tired could not get out of bed , denied of having palpitation , or dizzy spell had sharp pain on mid chest epigastric area , no substernal chest heaviness pt uses nocturnal 02 , she continued to use the 02 , gave her minimum benefit In ER -pt found to be in rapid Afib RVR , Hypertensive urgency with BP 193/104 on Coumadin INR 1.2 pt mentions of taking her all home meds -including Lasix , Coumadin , BP meds did not take any meds in AM due to respiratory distress Cxray shows -pulmonary congestion , BNP > 3000 pt denies of any fever -says she is always cold , no nasal congestion , cough , headache , no generalized body ache or flu like symptom at baseline pt has chronic LAUREANO , but symptom was markedly worse this AM Past Medical/Surgical History Medical Problems: (1) Asthma Status: Chronic (2) Atrial fibrillation Status: Chronic (3) C. difficile colitis Status: Resolved (4) Chronic anticoagulation Status: Chronic (5) COPD (chronic obstructive pulmonary disease) Status: Chronic (6) CVA (cerebral vascular accident) Status: Chronic (7) Diabetes mellitus, type II Status: Chronic (8) Diabetic neuropathy Status: Chronic (9) Diabetic peripheral neuropathy associated with type 2 diabetes mellitus Status: Chronic (10) Gastroparesis Status: Chronic (11) GERD (gastroesophageal reflux disease) Status: Chronic (12) History of coronary artery disease Status: Chronic (13) History of GI bleed Status: Chronic (14) Hyperlipidemia Status: Chronic (15) Hypertension Status: Chronic (16) Migraine Status: Chronic (17) Pulmonary embolism Status: Chronic (18) Sleep apnea Status: Chronic Surgical Problems: (1) H/O heart artery stent Permanent Comment: PTCA LAD [facility] (AVE Stent). Repeat catheterization August 2014 demonstrated stable moderate LAD stenosis. Status: Resolved (2) History of appendectomy Status: Resolved (3) History of total left hip arthroplasty Status: Resolved (4) Hx of removal of ovary Permanent Comment: R side Status: Resolved Family History FH: cancer MOTHER (cervical) BROTHER (skin, testicular) Social History Smoking Status: Former Smoker Housing status: lives alone, other Immunizations History of Influenza Vaccine: Yes Influenza Vaccine Date: May 31, 2016 History of Tetanus Vaccine?: Yes Tetanus Immunization Date: Feb 20, 2012 History of Pneumococcal: Yes Pneumococcal Date: Nov 04, 2000 History of Hepatitis B Vaccine: No Multi-Drug Resistant Organisms History of MDRO: No Allergies Coded Allergies: Codeine (Verified Allergy, Unknown, UNKNOWN, 09/23/17) INFO FROM PT Aspirin (Verified Adverse Reaction, Intermediate, (ULCER), 09/23/17) Venlafaxine (Verified Adverse Reaction, Intermediate, DROWINESS/ CONFUSION , 09/23/17) Cephalexin (Verified Adverse Reaction, Mild, DROWSINESS, UNABLE TO DRIVE, UPSET STOMACH, 09/23/17) Oxycodone (Verified Adverse Reaction, Mild, n/v, 09/23/17) gmg Home Medications Scheduled Budesonide (Inhalation) (Pulmicort Respules 0.5MG/2ML), 1 VIAL NEB BID Diltiazem HCl (Diltiazem Cd), 120 MG PO BID Ferrous Sulfate (Ferrous Sulfate), 325 MG PO DAILY Furosemide (Lasix), 1 TAB PO BID Home O2 Therapy (Oxygen), 3.5 LITERS NA HS Insulin Aspart (Novolog), ACHS Insulin Glargine (Lantus), 25 UNITS SQ QAM Insulin Glargine (Lantus), 11 UNITS SQ EVENING MEAL Isosorbide Mononitrate (Isosorbide Mononitrate ER), 30 MG PO DAILY Losartan Potassium (Cozaar), 100 MG PO DAILY Lovastatin (Mevacor), 80 MG PO HS Omeprazole (Omeprazole), 20 MG PO DAILY Solifenacin (Vesicare), 5 MG PO DAILY Warfarin Sod (Jantoven), 4 MG PO 4XWK Warfarin Sodium (Coumadin), 2 MG PO 3XWK [Utibron], INH UD Scheduled PRN Glucose-Vitamin C (Glucose), 1 TAB PO UD PRN for LOW SUGAR Levalbuterol Hcl (Levalbuterol Hcl), 3 ML INH Q4 PRN for SOB/Wheezing Nitroglycerin (Nitrostat), 0.4 MG UT PRN PRN for Chest Pain Review of Systems Constitutional: + weakness Respiratory: + shortness of breath, + dyspnea on exertion, + dyspnea at rest Cardiovascular: + chest pain (with difficulty of breath ), + orthopnea, + edema Abdomen: No pain, No nausea, No vomiting, No diarrhea, No constipation, No GI bleeding, No problem reported Musculoskeletal: No joint pain, No muscle pain, No swelling, No calf pain, No problem reported Neurologic: + weakness Psychiatric: + anxiety Endocrine: + fatigue, + excessive thirst Physical Exam Vital Signs Date Time Temp Pulse Resp B/P (MAP) Pulse Ox O2 Delivery O2 Flow Rate FiO2 09/23/17 12:32 110 20 193/104 93 Room Air 09/23/17 12:29 93 Room Air 09/23/17 12:29 105 09/23/17 12:01 116 24 174/108 95 09/23/17 11:31 180 09/23/17 11:14 120 25 94 Room Air 09/23/17 10:47 102 32 98 Room Air 09/23/17 09:48 120 24 184/128 96 Room Air 09/23/17 09:32 127 09/23/17 09:15 99 Room Air 09/23/17 09:15 37.4 110 26 146/129 99 Room Air General Appearance: + mild distress (due to shortness of breath ) Head: normocephalic, atraumatic Eyes: normal inspection, PERRL, EOMI, sclerae normal Neck: thyroid normal, no JVD, no carotid bruits, trachea midline Respiratory/Chest: + decreased breath sounds, + crackles, + rales Cardiovascular: + tachycardia, + irregularly irregular Abdomen/GI: normal bowel sounds, non tender, soft Extremities/Musculoskelatal: + pedal edema (+ 3 pedal edema ) Neurologic/Psych: no motor/sensory deficits, alert, normal mood/affect, oriented x 3 Diagnostics Laboratory Results Results Past 24 Hours Test 09/23/17 09:42 09/23/17 09:46 09/23/17 10:38 Range/Units Influenza Type A Antigen Neg for Influ A NEG Influenza Type B Antigen Neg for Influ B NEG White Blood Count 5.54 4.8-10.8 K/uL Red Blood Count 3.56 4.2-5.4 M/uL Hemoglobin 11.3 12.0-16.0 g/dL Hematocrit 34.5 37-47 % Mean Corpuscular Volume 96.9 80-100 fL Mean Corpuscular Hemoglobin 31.7 25-34 pg Mean Corpuscular Hemoglobin Concent 32.8 32-36 g/dl Platelet Count 103 130-400 K/uL Mean Platelet Volume 10.3 7.4-10.4 fL Neutrophils (%) (Auto) 79.2 % Lymphocytes (%) (Auto) 12.5 % Monocytes (%) (Auto) 7.0 % Eosinophils (%) (Auto) 1.1 % Basophils (%) (Auto) 0.2 % Neutrophils # (Auto) 4.39 1.4-6.5 K/uL Lymphocytes # (Auto) 0.69 1.2-3.4 K/uL Monocytes # (Auto) 0.39 0.11-0.59 K/uL Eosinophils # (Auto) 0.06 0-0.5 K/uL Basophils # (Auto) 0.01 0-0.2 K/uL RDW Standard Deviation 48.6 36.4-46.3 fL RDW Coefficient of Variation 13.7 11.5-14.5 % Immature Granulocyte % (Auto) 0.0 % Immature Granulocyte # (Auto) 0.00 0.00-0.02 K/uL Prothrombin Time 13.0 9.0-12.0 SECONDS Prothromb Time International Ratio 1.2 0.9-1.1 Sodium Level 139 136-145 mmol/L Potassium Level 4.5 3.5-5.1 mmol/L Chloride Level 106 98-107 mmol/L Carbon Dioxide Level 29 21-32 mmol/L Anion Gap 4.0 3-11 mmol/L Blood Urea Nitrogen 27 7-18 mg/dl Creatinine 1.63 0.60-1.20 mg/dl Estimated GFR () 34.4 Estimated GFR (Non- 29.7 BUN/Creatinine Ratio 16.5 10-20 Random Glucose 133 70-99 mg/dl Calcium Level 9.1 8.5-10.1 mg/dl Total Bilirubin 0.7 0.2-1 mg/dl Direct Bilirubin 0.2 0-0.2 mg/dl Aspartate Amino Transf (AST/SGOT) 20 15-37 U/L Alanine Aminotransferase (ALT/SGPT) 23 12-78 U/L Alkaline Phosphatase 106 45-117 U/L Troponin I < 0.015 0-0.045 ng/ml Pro-B-Type Natriuretic Peptide 3563 0-1800 pg/ml Total Protein 6.8 6.4-8.2 gm/dl Albumin 3.3 3.4-5.0 gm/dl Lipase 140 73-393 U/L Venous Blood pH 7.40 7.36-7.41 Venous Blood Partial Pressure CO2 47 38.0-50.0 mmHg Venous Blood Partial Pressure O2 36 mmHg Venous Blood HCO3 29 mmol/L Venous Blood Oxygen Saturation 66.0 % Venous Blood Base Excess 3.1 mEq/L Lactic Acid Level 1.9 0.4-2.0 mmol/L Microbiology Results 09/23/17 Blood Culture, Received Pending 09/23/17 Blood Culture, Received Pending Diagnostic Radiology CHEST XRAY : IMPRESSION: 1. Mild central pulmonary vascular congestion without overt edema. 2. Trace left pleural effusion which is improved. EKG Vent. rate 108 BPM MD interval * ms QRS duration 76 ms QT/QTc 286/383 ms P-R-T axes * 39 86 Atrial fibrillation with rapid ventricular response Nonspecific ST and T wave abnormality Abnormal ECG When compared with ECG of 10-AUG-2017 13:11, Atrial fibrillation has replaced Sinus rhythm Vent. rate has increased BY 38 BPM Criteria for Inferior infarct are no longer Present ST now depressed in Lateral leads Impression Assessment and Plan RAPID AFIB RVR : hx of paroxysmal Afib , on Cardizem 120 mg BID Coumadin , presents with acute decompensated CHF , SOB , found to be in rapid Afib HR in 170-180's pt given AM dose of Cardizem 120 mg in ER with no improvement of HR or rhythm ordered to start on IV Cardizem gtt without the bolus , titrate to keep HR < 100 INR sub therapeutic 1.2 will start on IV heparin protocol , cont Coumadin D/c IV heparin as INR ~2 Cardiology consulted plan of care D/w Cardiology ACUTE CHF WITH DIASTOLIC DYSFUNCTION : possible due to rapid afib hx of Diastolic failure grade 1 recent ECHO : 08/10/2017 LV systolic function normal ; EF 65-70% Grade 1 Diastolic dysfunction no evidence of ACS /repeat ECHO not ordered pt given 40 mg IV Lasix in ER will continue on 40 mg IV BID ( hold PO dose ) Has been on Zaroxolyn 2.5 mg one a week on Thursday -will defer to Cardiology to resume cont Losartan 100 mg daily Cardiology eval requested HYPERTENSIVE URGENCY : possible due to combination of respiratory distress/SOB /anxiety given AM dose on Cardizem in ER started on Cardizem gtt cont Losartan , IV Lasix monitor in tele TYPE 2 DM : out pt Lantus resumed ordered for insulin SSI HB A1 c in am labs COPD : no evidence of exacerbation , no wheeze cont out pt Neb tx supplemental 02 FULL CODE -discussed with pt DVT PROPHYLAXIS : IV heparin /Coumadin DISPOSITION : lives at home , has home health visiting nurse PT/OT eval prior to discharge social service consulted for DC planning Medicine follow up with Dr Waterman Cardiology follow up with Dr Do update given to daughter -Denzel Mora ( cell # [phone] ) Level of Care Telemetry Advanced Directives Existing Living Will: No Existing Power of Finish Patcher: No Resuscitation Status FULL RESUSCITATION VTE Prophylaxis VTE Risk Assessment Done? Y/N: Yes Risk Level: Moderate Given or contraindicated: Warfarin (Coumadin) Additional Copies To Kerry Waterman D.O. Henry, Sheldon D., M.D.
[2017-09-23] MEDS ORDERED: ONDANSETRON INJ 2 MG/ML 2 ML VIAL IV PRN (13:15)
[2017-09-23] MEDS ORDERED: ACETAMINOPHEN 325 MG TAB PO PRN (13:15)
[2017-09-23] MEDS ORDERED: POLYETHYLENE (MIRALAX) 17 GM PACK PO PRN (13:15)
[2017-09-23] MEDS ORDERED: NITROGLYCERIN 0.4 MG SL PER TAB CHARGE SL PRN (13:15)
[2017-09-23] MEDS ORDERED: ALUMINUM/MAGNESIUM/SIMETH (MAALOX MAX) 30 ML UDC PO PRN (13:15)
[2017-09-23] MEDS ORDERED: MAGNESIUM HYDROXIDE SUSP 30 ML UDC PO PRN (13:15)
[2017-09-23] MEDS ORDERED: FURO40TA3 PO (13:16)
[2017-09-23] MEDS ORDERED: LEVALBUTEROL 1.25MG/3ML NEB INH PRN (13:30)
[2017-09-23] MEDS ORDERED: NITROGLYCERIN 0.4 MG SL PER TAB CHARGE UT PRN (13:30)
[2017-09-23] MEDS ORDERED: DEXTROSE 50% 50 ML SYR IV PRN (13:30)
[2017-09-23] MEDS ORDERED: GLUCOSE 10 TABS/TUBE PO PRN (13:30)
[2017-09-23] MEDS ORDERED: GLUCOSE 40% GEL 15 GM TUBE PO PRN (13:30)
[2017-09-23] MEDS ORDERED: GLUCOSE 5 GM CHEWABLE TABLET PO PRN (13:30)
[2017-09-23] MEDS ORDERED: GLUCAGON FOR INJ 1 MG VIAL SQ PRN (13:30)
[2017-09-23] MEDS: DILTIAZEM HCL INJ 125 MG in DEXTROSE 5% 100ML IV PRN (13:38)
[2017-09-23] MEDS ORDERED: HEPARIN SOD (PORCINE) 1000 UNIT/ML 10 ML VIAL ONE (14:05)
[2017-09-23] MEDS ORDERED: HEPARIN 25000 UNIT/500 ML D5W ONE (14:05)
[2017-09-23] MEDS ORDERED: HEPARIN IV BOLUS 6,000 UNIT in SYRINGE 0 ML IV ONE (14:45)
[2017-09-23] MEDS ORDERED: LOSARTAN POTASSIUM 50 MG TAB PO ONE (15:27)
[2017-09-23] MEDS ORDERED: FUROSEMIDE INJ 40 MG in SYRINGE 0 ML IV SCH ×2 (17:00→21:00)
--- NOTE | 2017-09-23 17:10 | CARDIOLOGY CONSULTATION ---
DATE OF CONSULTATION: 09/23/2017 CONSULTATION REQUESTED BY: Dr. Kumar. REASON FOR CONSULTATION: Atrial fibrillation with rapid ventricular response and acute decompensated heart failure. HISTORY OF PRESENT ILLNESS: Ms. Harp is a very pleasant 77-year-old woman, who normally follows with Dr. Do of our cardiology practice. She presented to [facility] on 09/23/2017 with a complaint of acute onset of shortness of breath. The patient states that she was in her normal state last night when she went to bed, but when she woke up this morning, she started feeling short of breath even while she was still lying in bed. When she got up and ambulated to the bathroom, she had significantly winded and had to sit down and catch her breath. She then tried to make it into the kitchen, but again became too short of breath and felt her heart pounding in her chest and at that time, she became concerned and came into the ER. Upon presentation, she was found to be significantly short of breath. She was given Solu-Medrol and DuoNeb along with Lasix with slight improvement of her shortness of breath. She was then eventually started on Cardizem drip. The palpitations resolved and her shortness of breath improved; however, she still states that she is not back to baseline. She states that she has been compliant with her medications as of late, even though her INR is only 1.2 and she is on chronic Coumadin, but states that she has been compliant with her diet and avoiding salt and otherwise feeling well. She denies any chest pain, lightheadedness, dizziness, or syncope. She states that this is very similar to her most recent admission here at [facility] back in July. In the Emergency Department, she was also placed on heparin drip for subtherapeutic INR and her heart rates did improve with the Cardizem drip, but she was rather hypertensive and the patient notes that she did not take any of her oral medications prior to coming into the ER. PAST SURGICAL HISTORY: 1. Right heart catheterization in July 2017, unremarkable. 2. PCI with stent placement to the LAD in the year 1999. 3. Upper endoscopy, revealing a Schatzki's ring. 4. Colonoscopy. 5. Left total hip replacement. 6. Laparoscopic colposcopy. 7. Cystoscopy. 8. Right oophorectomy. 9. Appendectomy. MEDICAL ILLNESSES: 1. Coronary artery disease, status post PCI to the LAD. 2. Diastolic dysfunction with normal left ventricular systolic function. 3. Chronic obstructive pulmonary disease. 4. Obstructive sleep apnea, not tolerant of CPAP. 5. Morbid obesity. 6. Paroxysmal atrial fibrillation, on chronic Coumadin therapy. 7. Diabetes. 8. Diabetic nephropathy. 9. Hypertension with hypertensive heart disease. 10. Chronic venous stasis. FAMILY HISTORY: Noncontributory. SOCIAL HISTORY: The patient is . She lives independently. She is a former smoker, quit in 1995. Denies alcohol or recreational drug use. REVIEW OF SYSTEMS: As per HPI, all other review of systems reviewed and negative at this time. ALLERGIES: 1. ASPIRIN. 2. CEPHALEXIN. 3. EFFEXOR. 4. OXYCODONE 5. TYLENOL WITH CODEINE. MEDICATIONS AN OUTPATIENT: 1. Cardizem-CD 120 mg b.i.d. 2. Losartan 100 mg daily. 3. Coumadin as directed by the Coumadin clinic. 4. Lasix 40 mg b.i.d. 5. Imdur 30 mg daily. 6. Potassium chloride 20 mEq daily. 7. Insulin sliding scale. 8. Zaroxolyn 2.5 mg q. week on Wednesdays. 9. Nebulizers. PHYSICAL EXAMINATION: VITALS: Temperature 37.4, pulse 98, respiratory rate 12, and blood pressure 178/96. GENERAL: Awake, alert, and oriented x3, in no acute distress. Mild conversational dyspnea. HEENT: Normocephalic and atraumatic. Pupils equal, round, and reactive to light and accommodation. Extraocular muscles intact. Anicteric sclerae. Moist mucous membranes. NECK: No JVD. No bruit. CARDIOVASCULAR: Irregularly irregular and fast. Unable to appreciate murmurs, rubs or gallops. PULMONARY: Coarse breath sounds diffusely with poor air movement in the bilateral bases. Scant rales. No rhonchi or wheezing. ABDOMEN: Bowel sounds x4. Soft. No rebound, guarding, or tenderness. No organomegaly. EXTREMITIES: No clubbing or cyanosis. Chronic venous stasis changes with 1+ bilateral lower extremity pitting edema. +2 pedal pulses bilaterally. SKIN: Warm and dry. TEST RESULTS AND LABORATORY STUDIES OF SIGNIFICANCE: INR of 1.2. Sodium 139, potassium 4.5, BUN 27, and creatinine 1.6. A 12-lead EKG performed in the Emergency Department independently reviewed at this time shows atrial fibrillation with rapid ventricular response at 108 beats per minute, normal axis, normal intervals, and no ischemic changes. IMPRESSION: 1. Atrial fibrillation with rapid ventricular response. 2. Decompensated diastolic heart failure, likely secondary to #1. 3. Chronic renal insufficiency. 4. Diabetes. 5. Chronic obstructive pulmonary disease. 6. Morbid obesity. 7. Chronic venous stasis. 8. Hypertension -- uncontrolled. RECOMMENDATIONS: It was my pleasure to see Ms. Harp in consultation today. From a cardiac standpoint, I agree with the addition of heparin drip to bridge her INR back to therapeutic and her Coumadin will be redosed. She has also been placed on a Cardizem drip, which I agree with and I will be continued to help with rate control. At this time, I will see how she progresses clinically and determine whether or not we follow rate versus rhythm control strategy. Otherwise, her blood pressure is uncontrolled, but she did take her normal medications at home today. So, I will give her an extra dose of losartan 100 mg x1 now. I will increase her Lasix to 60 mg b.i.d. given her impaired renal function. We will keep strict I's and O's and follow her very closely clinically. Otherwise, I do not see the need to repeat an echocardiogram at this time given the fact that she has had one a few weeks ago.
[2017-09-23] MEDS: WARFARIN SOD 4 MG TAB PO SCH (17:41)
[2017-09-23] MEDS: FUROSEMIDE INJ 60 MG in SYRINGE 0 ML IV SCH (17:41)
[2017-09-23] MEDS: INSULIN HUMAN REGULAR SC SCH ×2 (17:45→20:48)
[2017-09-23] MEDS: BUDESONIDE 0.5 MG/2 ML VIAL (PULMICORT) INH SCH (19:14)
[2017-09-23 20:41] LABS: PTT PATIENT 160.6 SECONDS (21.0-31.0)
[2017-09-23] MEDS: INSULIN GLARGINE SOLOSTAR 100 UNITS/ML 3 ML PEN SQ SCH (20:49)
[2017-09-23] MEDS: LOVASTATIN 20 MG TAB PO SCH (20:57)
[2017-09-23 22:38] LABS: PTT PATIENT 75.9 SECONDS (21.0-31.0)
[2017-09-23] MEDS ORDERED: NURSING VERBAL MED ORDER ONE (23:45)
[2017-09-24] VITALS (13 sets, daily range): BP systolic 117–150; BP diastolic 43–77; PULSE 69–88; TEMP 36.3–36.9; O2SAT 95–100; BMI 42.6
[2017-09-24] MEDS ORDERED: INSULIN HUMAN REGULAR PER UNIT 6 UNITS in SYRINGE 5.94 ML IV SCH
[2017-09-24] MEDS ORDERED: ZOLPIDEM TARTRATE 5 MG TAB PO PRN (03:00)
[2017-09-24 05:02] LABS: HEMATOCRIT 30.7 % (37-47); HEMOGLOBIN 10.1 g/dL (12.0-16.0); MEAN CORPUSCULAR HEMOGLOBIN 31.3 pg (25-34); MEAN CORPUSCULAR HGB CONC 32.9 g/dl (32-36); MEAN PLATELET VOLUME 10.4 fL (7.4-10.4); PLATELET COUNT 112 K/uL (130-400); RED CELL DISTRIBUTION WIDTH CV 13.5 % (11.5-14.5); RED CELL DISTRIBUTION WIDTH SD 46.7 fL (36.4-46.3); WHITE BLOOD COUNT 6.51 K/uL (4.8-10.8)
[2017-09-24 05:22] LABS: CALCIUM 8.6 mg/dl (8.5-10.1); POTASSIUM 3.6 mmol/L (3.5-5.1)
[2017-09-24 05:36] LABS: PTT PATIENT 89.5 SECONDS (21.0-31.0)
[2017-09-24 06:33] LABS: HEMOGLOBIN A1C 7.4 % (4.5-5.6)
[2017-09-24] MEDS: BUDESONIDE 0.5 MG/2 ML VIAL (PULMICORT) INH SCH ×2 (07:31→19:03)
[2017-09-24] MEDS: ASPIRIN 81 MG ECTAB PO SCH (07:54)
[2017-09-24] MEDS: FERROUS SULFATE 325 MG TAB PO SCH (07:54)
[2017-09-24] MEDS: PANTOprazole SOD 40 MG TAB PO SCH (07:54)
[2017-09-24] MEDS: LOSARTAN POTASSIUM 50 MG TAB PO SCH (07:55)
[2017-09-24] MEDS: FUROSEMIDE INJ 60 MG in SYRINGE 0 ML IV SCH ×2 (07:55→16:09)
[2017-09-24] MEDS: ISOSORBIDE MONONITRATE 30 MG TABCR PO SCH (07:55)
[2017-09-24] MEDS: INSULIN HUMAN REGULAR SC SCH ×4 (08:04→20:26)
[2017-09-24] MEDS: INSULIN GLARGINE SOLOSTAR 100 UNITS/ML 3 ML PEN SQ SCH ×2 (08:05→20:27)
--- NOTE | 2017-09-24 08:43 | Clinical Documentation Query ---
ALEXEY Rose : CLINICAL DOCUMENTATION QUERIES QUERY 1 OF 2 Patient is a 77 year old female admitted for evaluation and treatment of atrial fibrillation, acute diastolic CHF, and hypertensive urgency. Admission BUN and creatinine 27 mg/dl and 1.63 mg/dl. Hospital day #2, repeat values are 37 mg/dl and 2.00 mg/dl in the setting of diuretic use. Additionally, estimated GFR range from 09/14/16 to present >15 and < 30 ml/min, consistent with CKD stage 4. Please clarify as clinically appropriate. Thank you. In your clinical opinion is this patient being managed for: ( x) KARLEE on CKD stage IV ( ) Not Agree ( ) Other explanation of clinical findings (Please Explain) ( ) Unable to determine (Please Define) ( ) Need to Discuss The medical record reflects the following clinical findings, treatment, and risk factors. Clinical Indicators: As above Treatment: Serial chemistries Risk Factors: Age, atrial fibrillation, DM, diuretic administration QUERY 2 OF 2 Documented EMR BMI of 42.6 kg/m*m. In order to capture this information, an associated medical diagnosis relating to the BMI must explicitly be documented by the provider. As appropriate, consider documentation as suggested below. Thank you. In your clinical opinion is this patient being managed for: ( ) Obesity/morbid obesity ( x ) Not Agree ( ) Other explanation of clinical findings (Please Explain) ( ) Unable to determine (Please Define) ( ) Need to Discuss The medical record reflects the following clinical findings, treatment, and risk factors. Clinical Indicators: As above Treatment: DAHA diet Risk Factors: Caloric intake > caloric expenditure Please clarify and document your clinical opinion in the progress notes and discharge summary. Terms such as "probable", "suspected", "likely", "questionable", "possible", or "still to be ruled out" are acceptable. Please clarify and document your clinical opinion in the progress notes and discharge summary. Terms such as "probable", "suspected", "likely", "questionable", "possible", or "still to be ruled out" are acceptable. IF IN AGREEMENT, YOU MUST DOCUMENT ABOVE DIAGNOSTIC STATEMENT IN DAILY PROGRESS NOTES AND DISCHARGE SUMMARY. This document is not part of the patient's record. Thank You, Gary Madrid, RN [phone]
[2017-09-24] MEDS ORDERED: DILTIAZEM HCL 120 MG CAPCR PO SCH (09:00)
[2017-09-24 12:15] LABS: PTT PATIENT 55.7 SECONDS (21.0-31.0)
[2017-09-24] MEDS ORDERED: NURSING VERBAL MED ORDER ONE (12:15)
[2017-09-24] MEDS ORDERED: DILTIAZEM HCL 120 MG CAPCR PO ONE (12:30)
[2017-09-24] MEDS: HEPARIN 25,000 UNIT/500ML D5W 500 ML IV PRN (12:44)
[2017-09-24] MEDS: DILTIAZEM HCL INJ 125 MG in DEXTROSE 5% 100ML IV PRN (12:54)
--- NOTE | 2017-09-24 14:13 | Pharmacy Progress Note ---
Glycemic Control: Initial Note Date of Service Sep 24, 2017. Scope Glycemic Pharmacist to provide recommendations to improve glycemic control (all ICU patients are screened for hyperglycemia and treatment recommendations are provided per protocol). Pt identified with hyperglycemia (BSG above 180) while admitted to [facility] ([facility]). Subjective The patient is a 77 year old female admitted on Sep 23, 2017 at 12:18 for chest pain, SOB, a fib w/ RVR, likely CHF exacerbation. Patient's past medical history is significant for type 2 diabetes mellitus. Objective Height (Feet): 5 Height (Inches): 3.00 Weight (Kilograms): 109.000 Accuchecks BSG (last 24hrs): Test 09/23/17 16:27 09/23/17 20:35 09/23/17 23:14 09/24/17 04:46 Bedside Glucose 272 mg/dl (70-90) 392 mg/dl (70-90) 334 mg/dl (70-90) Random Glucose 212 mg/dl (70-99) Test 09/24/17 06:48 09/24/17 11:05 Bedside Glucose 228 mg/dl (70-90) 293 mg/dl (70-90) Laboratory Data (last 24hrs) Test 09/24/17 04:46 Anion Gap 8.0 mmol/L BUN/Creatinine Ratio 18.3 Blood Urea Nitrogen 37 mg/dl Creatinine 2.00 mg/dl Hemoglobin A1c 7.4 % Potassium Level 3.6 mmol/L Sodium Level 136 mmol/L White Blood Count 6.51 K/uL Recent Pertinent Medications Outpatient Anti-diabetic Regimen: * Lantus 25 units Q AM + 11 units Q PM * Novolog SSI The patient is currently receiving: * Basal Insulin: Lantus 25 units Q AM + 11 units Q PM * Correctional Insulin: Regular Insulin Correction per scale ACHS Goal Range: Low 140 mg/dL - High 180 mg/dL Correction Factor: 30 mg/dL/unit * Prandial Insulin: Per carb ratio of 1 unit per 15 grams CHO consumed Risk Factors for Insulin Resistance: * Diet: ordered T2DM/AHA diet Assessment & Plan ASSESSMENT: 09/24/17 * Type 2 diabetic known to Glycemic Control Service from prior hospitalization, admitted for chest pain and SOB likely secondary to A fib w/ RVR + ADHF * BSGs have been elevated since admission: 334, 228, 293 * Current BSG pattern suggests both basal and rapid acting insulin deficiency * I do believe that the rapid acting insulin order should be adjusted to the greatest extent to improve control. Although she appears basal deficient, if any additional basal is given the dose should be relatively small as she typically requires less basal than what is currently ordered in the long run. Would recommend the following changes based upon prior experience with this patient: RECOMMEND: * Continuing Lantus 25 units SQ Q AM + 11 units Q PM, consider additional 5 units SQ x 1 to achieve glycemic targets more quickly * Changing correction factor 20 mg/dl/unit * Changing carb ratio 1 unit per 7 grams CHO consumed * Changing goal range Low 110 mg/dL - High 140 mg/dL Pharmacy will continue to provide recommendations in EMR while patient admitted to 1E/2E. Physicians may request pharmacy to continue to follow patient when transferred out of the ICU and/or consult pharmacy to write glycemic control orders * Please note that the plan above was derived based on current level of insulin resistance and hospital stress. These recommendations are appropriate for inpatient admission only. Plan of care upon discharge will need to be reassessed to avoid potential outpatient hypo/hyperglycemia. Thank you.
[2017-09-24] MEDS ORDERED: LEVALBUTEROL 1.25MG/3ML NEB INH PRN (14:45)
[2017-09-24] MEDS: WARFARIN SOD 4 MG TAB PO SCH (15:45)
--- NOTE | 2017-09-24 16:22 | Cardiology Follow-Up ---
Subjective Subjective Date of Service: Sep 24, 2017. Pt evaluation today including: conversation w/ patient, physical exam, chart review, lab review, review of studies, review of inpatient medication list Additional Details: Pt seen and examined, states that she's feeling better today. Still sob with exertion and lower extremity edema relatively unchanged. Denies cp, palpitations , lightheadedness or dizziness. tele reviewed: atrial fibrillation in 70's-80's. Problem List Medical Problems: (1) Acute kidney injury Status: Acute (2) KARLEE (acute kidney injury) Status: Acute (3) Anxiety attack Status: Acute (4) Atrial fibrillation with rapid ventricular response Status: Acute (5) Atypical chest pain Status: Acute (6) Bronchitis Status: Acute (7) Candidal intertrigo Status: Acute (8) COPD exacerbation Status: Acute (9) COPD exacerbation Status: Acute (10) Hyperventilation Status: Acute (11) Left sided chest pain Status: Acute (12) Pneumonia Status: Acute (13) Shortness of breath Status: Acute (14) Substernal chest pain Status: Acute (15) Substernal chest pain Status: Acute (16) UTI (urinary tract infection) Status: Acute (17) Weakness Status: Acute Review of Systems Constitutional: + see HPI Respiratory: + cough, + dyspnea on exertion, No see HPI, No sputum, No wheezing , No shortness of breath, No dyspnea at rest, No hemoptysis, No problem reported Cardiac: + edema, No see HPI, No chest pain, No orthopnea, No PND, No claudication, No palpitations, No problem reported Neurologic: + see HPI Objective Vital Signs Last Vital Signs Documentation Date Time Temp Pulse Resp B/P (MAP) Pulse Ox O2 Delivery O2 Flow Rate FiO2 09/24/17 15:51 36.6 72 20 142/52 (82) 99 Nasal Cannula 3.0 Physical Exam: General Appearance: WD/WN, no apparent distress, + obese Eyes: bilateral eyes normal inspection, bilateral eyes PERRL, bilateral eyes EOMI ENT: normal ENT inspection, hearing grossly normal, pharynx normal Neck: supple, no adenopathy, thyroid normal, no JVD, no carotid bruits, trachea midline Respiratory/Chest: chest non-tender, normal breath sounds, no respiratory distress, no accessory muscle use, + rhonchi Cardiovascular: + irregularly irregular Abdomen: normal bowel sounds, non tender, soft, no organomegaly, no pulsatile mass Extremities: no calf tenderness, + pedal edema (+1 B/L LE pitting edema) Neurologic/Psychiatric: director product management II-XII nml as tested, no motor/sensory deficits, alert, normal mood/affect, oriented x 3 Skin: warm/dry, + pertinent finding (chonic venous stasis changes of B/L LE ) Lymphatic: no adenopathy Assessment and Plan 1. acute decompensated diastolic heart failure likely secondary to afib with rvr diuresing well will cont with IV lasix BID for now replete lytes 2. paroxysmal atrial fibrillation do not believe she is symptomatic from the afib already on coumadin as outpatient unfortunately, subtherapeutic will cont coumadin will plan on following a rate control strategy at this time, and patient agrees with this will start po cardizem cd and attempt to wean gtt
[2017-09-24] MEDS ORDERED: POTASSIUM CHLORIDE 20 MEQ TABCR PO ONE (16:45)
[2017-09-24] MEDS: LOVASTATIN 20 MG TAB PO SCH (20:22)
[2017-09-24] MEDS: DILTIAZEM HCL 120 MG CAPCR PO SCH (20:23)
[2017-09-24] MEDS ORDERED: RCL25 PO (22:01)
[2017-09-24] MEDS ORDERED: MCRK20 PO (22:01)
--- NOTE | 2017-09-24 22:05 | Progress Note ---
Medicine Progress Note Date & Time of Visit: Sep 24, 2017 at 14:29. Subjective feeling improved since admission denies SOB or chest pain fatigue improved tolerating PO Objective Last 8 Hrs Date Time Temp Pulse Resp B/P (MAP) Pulse Ox O2 Delivery O2 Flow Rate FiO2 09/24/17 12:18 36.3 77 20 126/77 (93) 100 Nasal Cannula 3.0 09/24/17 11:20 Nasal Cannula 3.0 09/24/17 08:30 95 Nasal Cannula 3.0 09/24/17 08:07 36.9 72 24 140/65 (90) 100 Nasal Cannula 3.0 09/24/17 07:31 81 18 97 Nasal Cannula 3.0 09/24/17 07:30 Nasal Cannula 3.0 Physical Exam: GEN: obese, in no acute distress, alert and appropriate HEENT: NC/AT, PERRL, normal sclerae, MMM CARDIO: reg rate, S1/2 heard without m/g/r LUNGS: CTA bilaterally, no crackles, rales or wheezes, good diaphragmatic excursion ABD: soft, non-tender, non-distended, no rebound or guarding EXTREMITY: RP and DP palpable 2+ bilat, no LE swelling or edema, extremities are warm and well-perfused NEURO: CN 2-12 grossly intact MUSC: moves all extremities equally, no gross focal deficits SKIN: warm and dry Laboratory Results: 09/24/17 04:46 09/24/17 04:46 Test 09/23/17 09:42 09/23/17 09:46 09/23/17 10:38 09/23/17 17:00 Influenza Type A Antigen Neg for Influ A (NEG) Influenza Type B Antigen Neg for Influ B (NEG) Immature Granulocyte % (Auto) 0.0 % White Blood Count 5.54 K/uL (4.8-10.8) Red Blood Count 3.56 M/uL (4.2-5.4) Hemoglobin 11.3 g/dL (12.0-16.0) Hematocrit 34.5 % (37-47) Mean Corpuscular Volume 96.9 fL (80-100) Mean Corpuscular Hemoglobin 31.7 pg (25-34) Mean Corpuscular Hemoglobin Concent 32.8 g/dl (32-36) Platelet Count 103 K/uL (130-400) Mean Platelet Volume 10.3 fL (7.4-10.4) Neutrophils (%) (Auto) 79.2 % Lymphocytes (%) (Auto) 12.5 % Monocytes (%) (Auto) 7.0 % Eosinophils (%) (Auto) 1.1 % Basophils (%) (Auto) 0.2 % Neutrophils # (Auto) 4.39 K/uL (1.4-6.5) Lymphocytes # (Auto) 0.69 K/uL (1.2-3.4) Monocytes # (Auto) 0.39 K/uL (0.11-0.59) Eosinophils # (Auto) 0.06 K/uL (0-0.5) Basophils # (Auto) 0.01 K/uL (0-0.2) Immature Granulocyte # (Auto) 0.00 K/uL (0.00-0.02) Prothrombin Time 13.0 SECONDS (9.0-12.0) Prothromb Time International Ratio 1.2 (0.9-1.1) Total Bilirubin 0.7 mg/dl (0.2-1) Direct Bilirubin 0.2 mg/dl (0-0.2) Aspartate Amino Transf (AST/SGOT) 20 U/L (15-37) Alanine Aminotransferase (ALT/SGPT) 23 U/L (12-78) Alkaline Phosphatase 106 U/L (45-117) Pro-B-Type Natriuretic Peptide 3563 pg/ml (0-1800) Total Protein 6.8 gm/dl (6.4-8.2) Albumin 3.3 gm/dl (3.4-5.0) Lipase 140 U/L (73-393) Venous Blood pH 7.40 (7.36-7.41) Venous Blood Partial Pressure CO2 47 mmHg (38.0-50.0) Venous Blood Partial Pressure O2 36 mmHg Venous Blood HCO3 29 mmol/L Venous Blood Oxygen Saturation 66.0 % Venous Blood Base Excess 3.1 mEq/L Lactic Acid Level 1.9 mmol/L (0.4-2.0) Urine Color YELLOW Urine Appearance CLEAR (CLEAR) Urine pH 5.0 (4.5-7.5) Urine Specific Robbins 1.016 (1.000-1.030) Urine Protein NEG (NEG) Urine Glucose (UA) 1+ (NEG) Urine Ketones TRACE (NEG) Urine Occult Blood TRACE (NEG) Urine Nitrite NEG (NEG) Urine Bilirubin NEG (NEG) Urine Urobilinogen NEG (NEG) Urine Leukocyte Esterase SMALL (NEG) Urine WBC (Auto) 5-10 /hpf (0-5) Urine RBC (Auto) 0-4 /hpf (0-4) Urine Hyaline Casts (Auto) 1-5 /lpf (0-5) Urine Epithelial Cells (Auto) 20-30 /lpf (0-5) Urine Bacteria (Auto) 4+ (NEG) Test 09/24/17 04:46 09/24/17 11:39 09/24/17 12:58 09/24/17 20:20 Red Blood Count 3.23 M/uL (4.2-5.4) Mean Corpuscular Volume 95.0 fL (80-100) Mean Corpuscular Hemoglobin 31.3 pg (25-34) Mean Corpuscular Hemoglobin Concent 32.9 g/dl (32-36) RDW Standard Deviation 46.7 fL (36.4-46.3) RDW Coefficient of Variation 13.5 % (11.5-14.5) Mean Platelet Volume 10.4 fL (7.4-10.4) Anion Gap 8.0 mmol/L (3-11) Est Creatinine Clear Calc Drug Dose 27.0 ml/min Estimated GFR () 26.8 Estimated GFR (Non- 23.2 BUN/Creatinine Ratio 18.3 (10-20) Estimated Average Glucose 166 mg/dl Hemoglobin A1c 7.4 % (4.5-5.6) Calcium Level 8.6 mg/dl (8.5-10.1) Magnesium Level 2.2 mg/dl (1.8-2.4) Triglycerides Level 67 mg/dl (0-150) Cholesterol Level 160 mg/dl (0-200) HDL Cholesterol 64 mg/dl LDL Cholesterol, Calculated 83 mg/dl VLDL Cholesterol, Calculated 13 mg/dl Cholesterol/HDL Ratio 2.5 Activated Partial Thromboplast Time 55.7 SECONDS (21.0-31.0) Partial Thromboplastin Ratio 2.1 Troponin I < 0.015 ng/ml (0-0.045) Bedside Glucose 186 mg/dl (70-90) Date/Time Source Procedure Growth Status 09/23/17 09:46 Blood Blood Culture Pending Received 09/23/17 17:00 Urine , Clean Catch Urine Culture - Final THREE TYPES OF ORGANISMS PRESENT, ALL... Complete Last 24 Hours Test 09/23/17 16:27 09/23/17 17:00 09/23/17 19:29 09/23/17 20:35 Bedside Glucose 272 mg/dl 392 mg/dl Urine Color YELLOW Urine Appearance CLEAR Urine pH 5.0 Urine Specific Robbins 1.016 Urine Protein NEG Urine Glucose (UA) 1+ Urine Ketones TRACE Urine Occult Blood TRACE Urine Nitrite NEG Urine Bilirubin NEG Urine Urobilinogen NEG Urine Leukocyte Esterase SMALL Urine WBC (Auto) 5-10 /hpf Urine RBC (Auto) 0-4 /hpf Urine Hyaline Casts (Auto) 1-5 /lpf Urine Epithelial Cells (Auto) 20-30 /lpf Urine Bacteria (Auto) 4+ Activated Partial Thromboplast Time 160.6 SECONDS Partial Thromboplastin Ratio 6.2 Troponin I < 0.015 ng/ml Test 09/23/17 22:02 09/23/17 23:14 09/24/17 00:44 09/24/17 04:46 Activated Partial Thromboplast Time 75.9 SECONDS 89.5 SECONDS Partial Thromboplastin Ratio 2.9 3.4 Bedside Glucose 334 mg/dl Troponin I < 0.015 ng/ml White Blood Count 6.51 K/uL Red Blood Count 3.23 M/uL Hemoglobin 10.1 g/dL Hematocrit 30.7 % Mean Corpuscular Volume 95.0 fL Mean Corpuscular Hemoglobin 31.3 pg Mean Corpuscular Hemoglobin Concent 32.9 g/dl RDW Standard Deviation 46.7 fL RDW Coefficient of Variation 13.5 % Platelet Count 112 K/uL Mean Platelet Volume 10.4 fL Sodium Level 136 mmol/L Potassium Level 3.6 mmol/L Chloride Level 100 mmol/L Carbon Dioxide Level 28 mmol/L Anion Gap 8.0 mmol/L Blood Urea Nitrogen 37 mg/dl Creatinine 2.00 mg/dl Est Creatinine Clear Calc Drug Dose 27.0 ml/min Estimated GFR () 26.8 Estimated GFR (Non- 23.2 BUN/Creatinine Ratio 18.3 Random Glucose 212 mg/dl Estimated Average Glucose 166 mg/dl Hemoglobin A1c 7.4 % Calcium Level 8.6 mg/dl Magnesium Level 2.2 mg/dl Triglycerides Level 67 mg/dl Cholesterol Level 160 mg/dl HDL Cholesterol 64 mg/dl LDL Cholesterol, Calculated 83 mg/dl VLDL Cholesterol, Calculated 13 mg/dl Cholesterol/HDL Ratio 2.5 Test 09/24/17 06:48 09/24/17 06:53 09/24/17 11:05 09/24/17 11:39 Bedside Glucose 228 mg/dl 293 mg/dl Troponin I < 0.015 ng/ml Activated Partial Thromboplast Time 55.7 SECONDS Partial Thromboplastin Ratio 2.1 Test 09/24/17 12:58 Troponin I < 0.015 ng/ml Date/Time Source Procedure Growth Status 09/23/17 17:00 Urine , Clean Catch Urine Culture Pending Received Assessment & Plan 77 yo F presented with severe shortness of breath, weakness and fatigue. She reports to me that she felt herself gaining weight (approx 15 lbs) over the last couple of weeks. She is being managed for CHF exacerbation and afib w RVR. Of note, pt INR was 1.3 despite reporting compliance with coumadin and other meds. She had INR 3.7 and was instructed to hold and decrease the dose on her schedule. Several INR checks were performed after this and were all within the range 2-3, so it's not totally clear why INR was so low yesterday. 1. Acute CHF exacerbation-weight gain and progressive SOB reported over last 2- 3 weeks. Responding well to diuresis. Cont lyte replacement as needed. WE discussed the importance of salt restriction and daily weights. Zaroxolyn once weekly on hold. 2. Atrial fibrillation with RVR-on coumadin senior care, heparin drip while hospitalized to cover her for stroke risk although does not need bridge. Rate controlled with Dilt drip overngiht with cardiology team converting her to PO Diltiazem 3. HTN-better control today, cont Losartan 4. DMII-better control, appreciate Pharmacist input with management of insulin , Cont Glargine/ISS with carb coverage 5. Obesity 6. CKD Stage 4 7. Anemia-no indication for transfusion. No active bleeding DVT proph: coumadin/heparin Full Code Dispo: pending PT/OT evals. DO Tom Zhao Hospitalist Consultants: Maribell Current Inpatient Medications: Current Inpatient Medications Medications (Trade) Dose Ordered Sig/Rose Route Start Time Stop Time Status Last Admin Dose Admin Acetaminophen (Tylenol Tab) 650 mg Q4H PRN PO 09/23/17 13:15 10/23/17 13:14 Al Hydrox/Mg Hydrox/Simethicone (Maalox Max Susp) 15 ml Q4H PRN PO 09/23/17 13:15 10/23/17 13:14 Magnesium Hydroxide (Milk Of Magnesia Susp) 30 ml Q12H PRN PO 09/23/17 13:15 10/23/17 13:14 Ondansetron HCl (Zofran Inj) 4 mg Q6H PRN IV 09/23/17 13:15 10/23/17 13:14 Nitroglycerin (Nitrostat Tab) 0.4 mg UD PRN SL 09/23/17 13:15 10/23/17 13:14 Aspirin (Ecotrin Tab) 81 mg QAM PO 09/24/17 09:00 10/24/17 08:59 09/24/17 07:54 81 MG Polyethylene (Miralax Powder Packet) 17 gm DAILY PRN PO 09/23/17 13:15 10/23/17 13:14 Budesonide (Pulmicort Respules 0.5MG/ 2ML Neb Soln) 0.5 mg BID INH 09/23/17 21:00 10/23/17 20:59 09/24/17 07:31 0.5 MG Ferrous Sulfate (Feosol Tab) 325 mg DAILY PO 09/24/17 09:00 10/24/17 08:59 09/24/17 07:54 325 MG Glucose (Glucose Chew Tab) 1 tab UD PRN PO 09/23/17 13:30 10/23/17 13:29 Insulin Glargine (Lantus Solostar Pen) 11 units PM SQ 09/23/17 21:00 10/23/17 20:59 09/23/17 20:49 11 UNITS Insulin Glargine (Lantus Solostar Pen) 25 units QAM SQ 09/24/17 09:00 10/24/17 08:59 09/24/17 08:05 25 UNITS Isosorbide Mononitrate (Imdur Ext Rel Tab) 30 mg DAILY PO 09/24/17 09:00 10/24/17 08:59 09/24/17 07:55 30 MG Levalbuterol (Xopenex 1.25MG/ 3ML Neb) 3.75 mg Q4 PRN INH 09/23/17 13:30 10/23/17 13:29 Losartan Potassium (coZAAR TAB) 100 mg DAILY PO 09/24/17 09:00 10/24/17 08:59 09/24/17 07:55 100 MG Warfarin Sodium (Coumadin Tab) 4 mg DAILY@1600 PO 09/23/17 17:00 10/23/17 16:59 09/23/17 17:41 4 MG Lovastatin (Mevacor Tab) 80 mg HS PO 09/23/17 21:00 10/23/17 20:59 09/23/17 20:57 80 MG Pantoprazole Sodium (Protonix Tab) 40 mg DAILY PO 09/24/17 09:00 10/24/17 08:59 09/24/17 07:54 40 MG Miscellaneous Information (Order Awaiting Action) 1 ea QS N/A 09/23/17 16:00 10/23/17 15:59 Insulin Human Regular (novoLIN-R) SLIDING SCALE IF C... ACHS SC 09/23/17 16:00 10/23/17 15:59 09/24/17 12:34 6 UNITS Glucose (Glucose 40% Gel) 15-30 GRAMS 15 GRAMS... UD PRN PO 09/23/17 13:30 10/23/17 13:29 Glucose (Glucose Chew Tab) 4-8 Tablets 4 Tabl... UD PRN PO 09/23/17 13:30 10/23/17 13:29 Dextrose (Dextrose 50% 50ML Syringe) 25-50ML OF 50% DW IV FOR... UD PRN IV 09/23/17 13:30 10/23/17 13:29 Glucagon (Glucagon Inj) 1 mg UD PRN SQ 09/23/17 13:30 10/23/17 13:29 Heparin Sodium/ Dextrose 500 ml @ 20 mls/hr Q24H PRN IV 09/23/17 14:45 10/23/17 14:44 09/24/17 12:44 20 MLS/HR Furosemide 60 mg/ Syringe 6 ml @ 4 mls/min BID17 IV 09/23/17 17:00 10/23/17 16:59 09/24/17 07:55 4 MLS/MIN Zolpidem Tartrate (Ambien Tab) 5 mg HS PRN PO 09/24/17 03:00 10/24/17 02:59
[2017-09-25] VITALS (15 sets, daily range): BP systolic 119–175; BP diastolic 40–68; PULSE 66–110; TEMP 36.4–37.8; O2SAT 94–100
[2017-09-25 04:59] LABS: HEMATOCRIT 30.8 % (37-47); MEAN CELL VOLUME 95.4 fL (80-100); MEAN CORPUSCULAR HGB CONC 32.5 g/dl (32-36); MEAN PLATELET VOLUME 10.3 fL (7.4-10.4); PLATELET COUNT 108 K/uL (130-400); RED CELL DISTRIBUTION WIDTH CV 13.8 % (11.5-14.5); RED CELL DISTRIBUTION WIDTH SD 47.5 fL (36.4-46.3); WHITE BLOOD COUNT 7.01 K/uL (4.8-10.8)
[2017-09-25 05:17] LABS: INR 1.4 (0.9-1.1)
[2017-09-25 05:20] LABS: CALCIUM 8.7 mg/dl (8.5-10.1); CREATININE 2.65 mg/dl (0.60-1.20); POTASSIUM 4.1 mmol/L (3.5-5.1)
[2017-09-25 05:21] LABS: PTT PATIENT 49.1 SECONDS (21.0-31.0)
[2017-09-25] MEDS: INSULIN HUMAN REGULAR SC SCH ×4 (07:00→20:42)
[2017-09-25] MEDS: BUDESONIDE 0.5 MG/2 ML VIAL (PULMICORT) INH SCH ×2 (07:07→19:06)
--- NOTE | 2017-09-25 07:51 | DIAGNOSTIC IMAGING REPORT ---
CHEST ONE VIEW PORTABLE CLINICAL HISTORY: INCREASED SOB dyspnea COMPARISON STUDY: 09/23/2017 FINDINGS: Mild stable cardia megaly. Slight prominence of pulmonary vasculature similar to the prior study. Slight blunting of the lateral calcific angles unchanged. IMPRESSION: Mild stable cardiomegaly with chronic pulmonary vascular congestion. No significant change from the prior study. The above report was generated using voice recognition software. It may contain grammatical, syntax or spelling errors. Electronically signed by: Jaleel Xie M.D. 09/25/2017 7:50 AM Dictated Date/Time: 09/25/2017 7:47 AM
[2017-09-25] MEDS: CALCITRIOL 0.25 MCG CAP PO SCH (08:50)
[2017-09-25] MEDS: ASPIRIN 81 MG ECTAB PO SCH (08:51)
[2017-09-25] MEDS: POTASSIUM CHLORIDE 20 MEQ TABCR PO SCH (08:51)
[2017-09-25] MEDS: LOSARTAN POTASSIUM 50 MG TAB PO SCH (08:51)
[2017-09-25] MEDS: DILTIAZEM HCL 120 MG CAPCR PO SCH ×2 (08:51→20:51)
[2017-09-25] MEDS: ISOSORBIDE MONONITRATE 30 MG TABCR PO SCH (08:51)
[2017-09-25] MEDS: FERROUS SULFATE 325 MG TAB PO SCH (08:51)
[2017-09-25] MEDS: PANTOprazole SOD 40 MG TAB PO SCH (08:52)
[2017-09-25] MEDS: INSULIN GLARGINE SOLOSTAR 100 UNITS/ML 3 ML PEN SQ SCH ×2 (08:57→20:43)
--- NOTE | 2017-09-25 10:47 | Cardiology Follow-Up ---
Subjective Subjective Date of Service: Sep 25, 2017. Pt evaluation today including: conversation w/ patient, physical exam, chart review, lab review, review of studies, review of inpatient medication list Additional Details: Pt seen and examined, states that she's not feeling well, having sob today, no improvement from admission. States that she feels very tired and worn out. Urinating frequently. Some reproducible chest pain but denies palpitations, lightheadedness or dizziness. Tele reviewed: atrial fibrillation rate controlled some rvr with activity and nebs Problem List Medical Problems: (1) Acute kidney injury Status: Acute (2) KARLEE (acute kidney injury) Status: Acute (3) Anxiety attack Status: Acute (4) Atrial fibrillation with rapid ventricular response Status: Acute (5) Atypical chest pain Status: Acute (6) Bronchitis Status: Acute (7) Candidal intertrigo Status: Acute (8) COPD exacerbation Status: Acute (9) COPD exacerbation Status: Acute (10) Hyperventilation Status: Acute (11) Left sided chest pain Status: Acute (12) Pneumonia Status: Acute (13) Shortness of breath Status: Acute (14) Substernal chest pain Status: Acute (15) Substernal chest pain Status: Acute (16) UTI (urinary tract infection) Status: Acute (17) Weakness Status: Acute Review of Systems Constitutional: + see HPI Respiratory: + cough, + shortness of breath, + dyspnea on exertion, No see HPI , No sputum, No wheezing, No dyspnea at rest, No hemoptysis, No problem reported Cardiac: + edema, No see HPI, No chest pain, No orthopnea, No PND, No claudication, No palpitations, No problem reported Neurologic: + see HPI Objective Vital Signs Last Vital Signs Documentation Date Time Temp Pulse Resp B/P (MAP) Pulse Ox O2 Delivery O2 Flow Rate FiO2 09/25/17 08:00 94 Oxymask 09/25/17 07:58 37.3 110 32 175/68 (103) 2.0 Physical Exam: General Appearance: WD/WN, + mild distress (mild conversational dyspnea), + obese Eyes: bilateral eyes normal inspection, bilateral eyes PERRL, bilateral eyes EOMI ENT: normal ENT inspection, hearing grossly normal, pharynx normal Neck: supple, no adenopathy, thyroid normal, no JVD, no carotid bruits, trachea midline Respiratory/Chest: chest non-tender, normal breath sounds, no respiratory distress, no accessory muscle use, + rhonchi, + wheezing Cardiovascular: + irregularly irregular Abdomen: normal bowel sounds, non tender, soft, no organomegaly, no pulsatile mass Extremities: no calf tenderness, + pedal edema (+1 B/L LE pitting edema) Neurologic/Psychiatric: balance staff staker II-XII nml as tested, no motor/sensory deficits, alert, normal mood/affect, oriented x 3 Skin: warm/dry, + pertinent finding (chonic venous stasis changes of B/L LE ) Lymphatic: no adenopathy Assessment and Plan 1. acute decompensated diastolic heart failure likely secondary to afib with rvr no clinical improvement despite diuresis does not examine as volume overloaded am now concerned may be experiencing a copd exacerbation, discussed with Dr. Bowles creat has significantly elevated, do not believe pt will benefit from further diuresis, will stop lasix will follow volume status clinically 2. paroxysmal atrial fibrillation do not believe she is symptomatic from the afib now she remains sob despite rates in 70's-80's already on coumadin as outpatient unfortunately, subtherapeutic will cont coumadin will plan on following a rate control strategy at this time, and patient agrees with this will start po cardizem cd and attempt to wean gtt
[2017-09-25] MEDS: METHYLPREDNISOLONE IV 40 MG in SYRINGE 0 ML IV SCH ×2 (12:34→20:49)
[2017-09-25] MEDS: DOXYCYCLINE IV 100 MG in DEXTROSE 5% 100ML 100 ML IV SCH ×2 (12:35→21:37)
[2017-09-25] MEDS: HEPARIN 25,000 UNIT/500ML D5W 500 ML IV PRN (12:40)
[2017-09-25] MEDS: IPRATROPIUM BROMIDE NEB SOLN 0.02% 2.5 ML VIAL INH SCH ×2 (14:48→19:06)
[2017-09-25] MEDS: LEVALBUTEROL 1.25MG/0.5ML NEB INH SCH ×2 (14:48→19:06)
[2017-09-25] MEDS ORDERED: LEVALBUTEROL/IPRATROPIUM NEB INH SCH (15:00)
[2017-09-25] MEDS: CEFTRIAXONE SOD INJ 1 GM in DEXTROSE 5% ADD-VANTAGE 50ML 50 ML IV SCH (16:15)
[2017-09-25] MEDS: WARFARIN SOD 4 MG TAB PO SCH (16:16)
[2017-09-25] MEDS ORDERED: SODIUM CHLORIDE 0.9% 1000ML 1,000 ML IV SCH (17:15)
--- NOTE | 2017-09-25 17:15 | Progress Note ---
Medicine Progress Note Date & Time of Visit: Sep 25, 2017 at 11:41. Subjective denies cough some worsened SOB very low energy Objective Last 8 Hrs Date Time Temp Pulse Resp B/P (MAP) Pulse Ox O2 Delivery O2 Flow Rate FiO2 09/25/17 11:25 94 Oxymask 3.0 09/25/17 08:00 94 Oxymask 09/25/17 07:58 37.3 110 32 175/68 (103) 94 Nasal Cannula 2.0 09/25/17 07:10 102 18 95 Nasal Cannula 2.0 09/25/17 04:00 96 Nasal Cannula 2.0 Physical Exam: GEN: obese, in no acute distress, alert and appropriate HEENT: NC/AT, PERRL, normal sclerae, MMM CARDIO: reg rate, S1/2 heard without m/g/r LUNGS: CTA bilaterally, no crackles, rales or wheezes, good diaphragmatic excursion ABD: soft, non-tender, non-distended, no rebound or guarding EXTREMITY: RP and DP palpable 2+ bilat, no LE swelling or edema, extremities are warm and well-perfused NEURO: CN 2-12 grossly intact MUSC: moves all extremities equally, no gross focal deficits SKIN: warm and dry Laboratory Results: 09/25/17 04:39 09/25/17 04:39 Test 09/23/17 09:42 09/23/17 09:46 09/23/17 10:38 09/24/17 04:46 Influenza Type A Antigen Neg for Influ A (NEG) Influenza Type B Antigen Neg for Influ B (NEG) Immature Granulocyte % (Auto) 0.0 % White Blood Count 5.54 K/uL (4.8-10.8) Red Blood Count 3.56 M/uL (4.2-5.4) Hemoglobin 11.3 g/dL (12.0-16.0) Hematocrit 34.5 % (37-47) Mean Corpuscular Volume 96.9 fL (80-100) Mean Corpuscular Hemoglobin 31.7 pg (25-34) Mean Corpuscular Hemoglobin Concent 32.8 g/dl (32-36) Platelet Count 103 K/uL (130-400) Mean Platelet Volume 10.3 fL (7.4-10.4) Neutrophils (%) (Auto) 79.2 % Lymphocytes (%) (Auto) 12.5 % Monocytes (%) (Auto) 7.0 % Eosinophils (%) (Auto) 1.1 % Basophils (%) (Auto) 0.2 % Neutrophils # (Auto) 4.39 K/uL (1.4-6.5) Lymphocytes # (Auto) 0.69 K/uL (1.2-3.4) Monocytes # (Auto) 0.39 K/uL (0.11-0.59) Eosinophils # (Auto) 0.06 K/uL (0-0.5) Basophils # (Auto) 0.01 K/uL (0-0.2) Immature Granulocyte # (Auto) 0.00 K/uL (0.00-0.02) Total Bilirubin 0.7 mg/dl (0.2-1) Direct Bilirubin 0.2 mg/dl (0-0.2) Aspartate Amino Transf (AST/SGOT) 20 U/L (15-37) Alanine Aminotransferase (ALT/SGPT) 23 U/L (12-78) Alkaline Phosphatase 106 U/L (45-117) Pro-B-Type Natriuretic Peptide 3563 pg/ml (0-1800) Total Protein 6.8 gm/dl (6.4-8.2) Albumin 3.3 gm/dl (3.4-5.0) Lipase 140 U/L (73-393) Venous Blood pH 7.40 (7.36-7.41) Venous Blood Partial Pressure CO2 47 mmHg (38.0-50.0) Venous Blood Partial Pressure O2 36 mmHg Venous Blood HCO3 29 mmol/L Venous Blood Oxygen Saturation 66.0 % Venous Blood Base Excess 3.1 mEq/L Lactic Acid Level 1.9 mmol/L (0.4-2.0) Estimated Average Glucose 166 mg/dl Hemoglobin A1c 7.4 % (4.5-5.6) Triglycerides Level 67 mg/dl (0-150) Cholesterol Level 160 mg/dl (0-200) HDL Cholesterol 64 mg/dl LDL Cholesterol, Calculated 83 mg/dl VLDL Cholesterol, Calculated 13 mg/dl Cholesterol/HDL Ratio 2.5 Test 09/24/17 12:58 09/25/17 04:39 09/25/17 12:50 09/25/17 16:04 Troponin I < 0.015 ng/ml (0-0.045) Red Blood Count 3.23 M/uL (4.2-5.4) Mean Corpuscular Volume 95.4 fL (80-100) Mean Corpuscular Hemoglobin 31.0 pg (25-34) Mean Corpuscular Hemoglobin Concent 32.5 g/dl (32-36) RDW Standard Deviation 47.5 fL (36.4-46.3) RDW Coefficient of Variation 13.8 % (11.5-14.5) Mean Platelet Volume 10.3 fL (7.4-10.4) Prothrombin Time 14.1 SECONDS (9.0-12.0) Prothromb Time International Ratio 1.4 (0.9-1.1) Activated Partial Thromboplast Time 49.1 SECONDS (21.0-31.0) Partial Thromboplastin Ratio 1.9 Anion Gap 8.0 mmol/L (3-11) Est Creatinine Clear Calc Drug Dose 20.4 ml/min Estimated GFR () 19.1 Estimated GFR (Non- 16.5 BUN/Creatinine Ratio 21.0 (10-20) Calcium Level 8.7 mg/dl (8.5-10.1) Magnesium Level 2.0 mg/dl (1.8-2.4) Urine Color YELLOW Urine Appearance TURBID (CLEAR) Urine pH 5.0 (4.5-7.5) Urine Specific [place] 1.019 (1.000-1.030) Urine Protein TRACE (NEG) Urine Glucose (UA) NEG (NEG) Urine Ketones NEG (NEG) Urine Occult Blood 1+ (NEG) Urine Nitrite NEG (NEG) Urine Bilirubin NEG (NEG) Urine Urobilinogen NEG (NEG) Urine Leukocyte Esterase LARGE (NEG) Urine WBC (Auto) >30 /hpf (0-5) Urine RBC (Auto) 5-10 /hpf (0-4) Urine Hyaline Casts (Auto) 1-5 /lpf (0-5) Urine Epithelial Cells (Auto) >30 /lpf (0-5) Urine Bacteria (Auto) 4+ (NEG) Urine Pathogenic Casts /lpf (0) Urine Random Creatinine 82.0 mg/dl Urine Random Sodium 14 mEq/L Urine Random Urea Nitrogen 713 mg/dl Bedside Glucose 229 mg/dl (70-90) Date/Time Source Procedure Growth Status 09/23/17 09:46 Blood Blood Culture - Preliminary NO GROWTH TO DATE. Resulted 1/26/18 12:10 Sputum Expectorated Sputum Gram Stain Pending Received 09/25/17 12:10 Sputum Expectorated Sputum Sputum Culture Pending Received 09/25/17 12:50 Urine , Clean Catch Urine Culture Pending Received Last 24 Hours Test 09/24/17 12:58 09/24/17 16:13 09/24/17 20:20 09/25/17 04:39 Troponin I < 0.015 ng/ml Bedside Glucose 253 mg/dl 186 mg/dl White Blood Count 7.01 K/uL Red Blood Count 3.23 M/uL Hemoglobin 10.0 g/dL Hematocrit 30.8 % Mean Corpuscular Volume 95.4 fL Mean Corpuscular Hemoglobin 31.0 pg Mean Corpuscular Hemoglobin Concent 32.5 g/dl RDW Standard Deviation 47.5 fL RDW Coefficient of Variation 13.8 % Platelet Count 108 K/uL Mean Platelet Volume 10.3 fL Prothrombin Time 14.1 SECONDS Prothromb Time International Ratio 1.4 Activated Partial Thromboplast Time 49.1 SECONDS Partial Thromboplastin Ratio 1.9 Sodium Level 136 mmol/L Potassium Level 4.1 mmol/L Chloride Level 100 mmol/L Carbon Dioxide Level 28 mmol/L Anion Gap 8.0 mmol/L Blood Urea Nitrogen 56 mg/dl Creatinine 2.65 mg/dl Est Creatinine Clear Calc Drug Dose 20.4 ml/min Estimated GFR () 19.1 Estimated GFR (Non- 16.5 BUN/Creatinine Ratio 21.0 Random Glucose 110 mg/dl Calcium Level 8.7 mg/dl Magnesium Level 2.0 mg/dl Test 09/25/17 06:34 Bedside Glucose 104 mg/dl Assessment & Plan 77 yo F presented with severe shortness of breath, weakness and fatigue. She reports to me that she felt herself gaining weight (approx 15 lbs) over the last couple of weeks. She is being managed for CHF exacerbation and afib w RVR. Of note, pt INR was 1.3 despite reporting compliance with coumadin and other meds. She had INR 3.7 and was instructed to hold and decrease the dose on her schedule. Several INR checks were performed after this and were all within the range 2-3, so it's not totally clear why INR was so low on admission. Today she is more ill-appearing and appears to be working to breathe. She denies cough but nurse reports cough of productive horn sputum and states that her urine is foul smelling. The patient denies any issues with her urine and denies dysuria. The patient was trying to at food and literally stopped saying she just didn't have the energy to eat. No other complaints today. Per cardiology her fluid status is optimized and she is euvolemic- diuretics were stopped. 1. Acute CHF exacerbation-weight gain and progressive SOB reported over last 2- 3 weeks. Responding well to diuresis. Cont lyte replacement as needed. We discussed the importance of salt restriction and daily weights. Zaroxolyn once weekly on hold. Euvolemic today and diuretics were stopped. 2. Acute on chronic kidney failure-poss 2/2 overdiuresis vs other. Urine lytes ordered. Held losaran for now. 3. Atrial fibrillation with RVR-on coumadin alf, heparin drip while hospitalized to cover her for stroke risk although does not need bridge. Rate controlled with Dilt drip overnight with cardiology team converting her to PO Diltiazem . HR currently controlled, INR still subtherapeutic today. 4 Acute hypoxic respiratory failure-etiologies include but are not limited to acute bronchitis (COPD exacerbation) vs PE vs URI (viral)- Appears to have gotten somewhat worse and she is now coughing up productive sputum with a mild temp and very low energy. Although flu Ag was negative, will obtain flu PCR. She has a h/o COPD with no infiltrate seen on repeat CXR this morning. Will start treatment for a COPD exacerbation to include IV solumedrol, duonebs, and doxycycline and cont supplemental oxygen. Although PE considered she currently has a creat 2.[address] with contrast is contraindicated. She is also already on the treatment which is a heparin drip. If she does not improve with current treatment will consider other diagnostic studies for this. 5. Fatigue and low energy-poss related to UTI? Specimen initially obtained revealed 3 organisms and recollection was recommended. She does appear like someone with a UTI as this can present with weakness and fatigue. Will cover with ceftriaxone empirically pending culture results. 6. HTN-better control today, cont Losartan 7. DMII-better control, appreciate Pharmacist input with management of insulin , Cont Glargine/ISS with carb coverage 8. Obesity 9. CKD Stage 4-cont calcitriol per outpatient Nephrology 10. Anemia-no indication for transfusion. No active bleeding DVT proph: coumadin/heparin Full Code Dispo:rehab recommended but per CM pt wants to go home with Home Health. Will discuss when closer to discharge after the weekend. DO Tom Zhao Hospitalist Consultants: [facility] Current Inpatient Medications: Current Inpatient Medications Medications (Trade) Dose Ordered Sig/Rose Route Start Time Stop Time Status Last Admin Dose Admin Acetaminophen (Tylenol Tab) 650 mg Q4H PRN PO 09/23/17 13:15 10/23/17 13:14 Al Hydrox/Mg Hydrox/Simethicone (Maalox Max Susp) 15 ml Q4H PRN PO 09/23/17 13:15 10/23/17 13:14 Magnesium Hydroxide (Milk Of Magnesia Susp) 30 ml Q12H PRN PO 09/23/17 13:15 10/23/17 13:14 Ondansetron HCl (Zofran Inj) 4 mg Q6H PRN IV 09/23/17 13:15 10/23/17 13:14 Nitroglycerin (Nitrostat Tab) 0.4 mg UD PRN SL 09/23/17 13:15 10/23/17 13:14 Aspirin (Ecotrin Tab) 81 mg QAM PO 09/24/17 09:00 10/24/17 08:59 09/25/17 08:51 81 MG Polyethylene (Miralax Powder Packet) 17 gm DAILY PRN PO 09/23/17 13:15 10/23/17 13:14 Budesonide (Pulmicort Respules 0.5MG/ 2ML Neb Soln) 0.5 mg BID INH 09/23/17 21:00 10/23/17 20:59 09/25/17 07:07 0.5 MG Ferrous Sulfate (Feosol Tab) 325 mg DAILY PO 09/24/17 09:00 10/24/17 08:59 09/25/17 08:51 325 MG Glucose (Glucose Chew Tab) 1 tab UD PRN PO 09/23/17 13:30 10/23/17 13:29 Insulin Glargine (Lantus Solostar Pen) 11 units PM SQ 09/23/17 21:00 10/23/17 20:59 09/24/17 20:27 11 UNITS Insulin Glargine (Lantus Solostar Pen) 25 units QAM SQ 09/24/17 09:00 10/24/17 08:59 09/25/17 08:57 25 UNITS Isosorbide Mononitrate (Imdur Ext Rel Tab) 30 mg DAILY PO 09/24/17 09:00 10/24/17 08:59 09/25/17 08:51 30 MG Losartan Potassium (coZAAR TAB) 100 mg DAILY PO 09/24/17 09:00 10/24/17 08:59 09/25/17 08:51 100 MG Warfarin Sodium (Coumadin Tab) 4 mg DAILY@1600 PO 09/23/17 17:00 10/23/17 16:59 09/24/17 15:45 4 MG Lovastatin (Mevacor Tab) 80 mg HS PO 09/23/17 21:00 10/23/17 20:59 09/24/17 20:22 80 MG Pantoprazole Sodium (Protonix Tab) 40 mg DAILY PO 09/24/17 09:00 10/24/17 08:59 09/25/17 08:52 40 MG Miscellaneous Information (Order Awaiting Action) 1 ea QS N/A 09/23/17 16:00 10/23/17 15:59 Insulin Human Regular (novoLIN-R) SLIDING SCALE IF C... ACHS SC 09/23/17 16:00 10/23/17 15:59 09/24/17 20:26 3 UNITS Glucose (Glucose 40% Gel) 15-30 GRAMS 15 GRAMS... UD PRN PO 09/23/17 13:30 10/23/17 13:29 Glucose (Glucose Chew Tab) 4-8 Tablets 4 Tabl... UD PRN PO 09/23/17 13:30 10/23/17 13:29 Dextrose (Dextrose 50% 50ML Syringe) 25-50ML OF 50% DW IV FOR... UD PRN IV 09/23/17 13:30 10/23/17 13:29 Glucagon (Glucagon Inj) 1 mg UD PRN SQ 09/23/17 13:30 10/23/17 13:29 Heparin Sodium/ Dextrose 500 ml @ 20 mls/hr Q24H PRN IV 09/23/17 14:45 10/23/17 14:44 09/24/17 12:44 20 MLS/HR Zolpidem Tartrate (Ambien Tab) 5 mg HS PRN PO 09/24/17 03:00 10/24/17 02:59 Levalbuterol (Xopenex 1.25MG/ 3ML Neb) 1.25 mg Q4 PRN INH 09/24/17 14:45 10/24/17 14:44 09/25/17 07:07 1.25 MG Diltiazem HCl (Cardizem Cd Cap) 120 mg BID PO 09/24/17 21:00 10/24/17 20:59 09/25/17 08:51 120 MG Calcitriol (Rocaltrol Cap) 0.5 mcg DAILY PO 09/25/17 09:00 10/25/17 08:59 09/25/17 08:50 0.5 MCG Potassium Chloride (Klor-Con Tab) 20 meq DAILY PO 09/25/17 09:00 10/25/17 08:59 09/25/17 08:51 20 MEQ
[2017-09-25 18:40] LABS: INFLUENZA B PCR Neg for Influ B (NEG)
[2017-09-25 18:43] LABS: INFLUENZA A PCR POS for Influ A (NEG)
[2017-09-25] MEDS ORDERED: OSELTAMIVIR PHOSPHATE 75 MG CAP PO STA (19:12)
--- NOTE | 2017-09-25 19:18 | Progress Note ---
Progress Note Date of Service Sep 25, 2017. Progress Note ATTENDING ADDENDUM : Pt's Influenza A PCR came positive ordered for Droplet precaution Tamiflu ordered dose adjusted for renal clearance updated the Primary Provider Dr Bowles
[2017-09-25] MEDS ORDERED: [UNRECOGNIZED DRUG - REMARK] PRN (19:30)
[2017-09-25] MEDS: LOVASTATIN 20 MG TAB PO SCH (20:51)
[2017-09-25] MEDS: OSELTAMIVIR PHOSPHATE SUSP 30 MG/5 ML UDP PO SCH (21:38)
[2017-09-26] VITALS (12 sets, daily range): BP systolic 125–149; BP diastolic 42–55; PULSE 56–86; TEMP 36.3–36.5; O2SAT 96–99
[2017-09-26] MEDS: IPRATROPIUM BROMIDE NEB SOLN 0.02% 2.5 ML VIAL INH SCH ×7 (02:04→23:05)
[2017-09-26] MEDS: LEVALBUTEROL 1.25MG/0.5ML NEB INH SCH ×7 (02:04→23:05)
[2017-09-26] MEDS: METHYLPREDNISOLONE IV 40 MG in SYRINGE 0 ML IV SCH ×3 (04:25→21:30)
[2017-09-26 05:22] LABS: HEMATOCRIT 26.8 % (37-47); HEMOGLOBIN 8.8 g/dL (12.0-16.0); MEAN CELL VOLUME 94.4 fL (80-100); MEAN CORPUSCULAR HGB CONC 32.8 g/dl (32-36); RED CELL DISTRIBUTION WIDTH CV 13.7 % (11.5-14.5); RED CELL DISTRIBUTION WIDTH SD 47.4 fL (36.4-46.3); WHITE BLOOD COUNT 4.07 K/uL (4.8-10.8)
[2017-09-26 05:26] LABS: MEAN PLATELET VOLUME 10.5 fL (7.4-10.4); PLATELET COUNT 95 K/uL (130-400)
[2017-09-26 05:34] LABS: INR 1.5 (0.9-1.1); PTT PATIENT 44.8 SECONDS (21.0-31.0)
[2017-09-26 05:57] LABS: CALCIUM 8.3 mg/dl (8.5-10.1); CREATININE 3.09 mg/dl (0.60-1.20); POTASSIUM 4.2 mmol/L (3.5-5.1)
[2017-09-26] MEDS ORDERED: HEPARIN IV BOLUS 3,000 UNIT in SYRINGE 0 ML IV ONE (07:00)
[2017-09-26] MEDS: BUDESONIDE 0.5 MG/2 ML VIAL (PULMICORT) INH SCH ×2 (07:09→19:32)
[2017-09-26] MEDS: DILTIAZEM HCL 120 MG CAPCR PO SCH ×2 (08:37→21:30)
[2017-09-26] MEDS: CALCITRIOL 0.25 MCG CAP PO SCH (08:38)
[2017-09-26] MEDS: PANTOprazole SOD 40 MG TAB PO SCH (08:38)
[2017-09-26] MEDS: ASPIRIN 81 MG ECTAB PO SCH (08:38)
[2017-09-26] MEDS: FERROUS SULFATE 325 MG TAB PO SCH (08:38)
[2017-09-26] MEDS: POTASSIUM CHLORIDE 20 MEQ TABCR PO SCH (08:38)
[2017-09-26] MEDS: ISOSORBIDE MONONITRATE 30 MG TABCR PO SCH (08:39)
[2017-09-26] MEDS: INSULIN HUMAN REGULAR SC SCH (08:44)
[2017-09-26] MEDS: INSULIN GLARGINE SOLOSTAR 100 UNITS/ML 3 ML PEN SQ SCH ×2 (08:46→21:33)
[2017-09-26] MEDS: DOXYCYCLINE IV 100 MG in DEXTROSE 5% 100ML 100 ML IV SCH ×2 (08:46→21:31)
--- NOTE | 2017-09-26 09:54 | Progress Note ---
Medicine Progress Note Date & Time of Visit: Sep 26, 2017 at 09:45. Subjective seen resting in bedside chair appears somewhat anxious but not in distress states she feels "worse" today, with dyspnea on minimal exertion able to speak in sentences with no effort, tells stories denies chest pain, palpitations denies abdominal pain, nausea, urinary symptoms no other symptoms Objective Last 8 Hrs Date Time Temp Pulse Resp B/P (MAP) Pulse Ox O2 Delivery O2 Flow Rate FiO2 09/26/17 07:33 36.4 66 18 133/55 (81) 99 09/26/17 07:11 61 18 99 Mask 3.0 09/26/17 04:00 Oxymask 3.0 09/26/17 04:00 36.5 73 20 130/42 (71) 98 Oxymask 3.0 09/26/17 02:30 66 16 99 Mask 3.0 Physical Exam: General- oriented x 3, not in distress, speaks in sentences with no effort, no acc muscle use Head- atraumatic Eyes- PERRL, EOMI, anicteric ENT- oropharynx clear Neck- supple, no JVD, no adenopathy, no thyromegaly Lungs-(+) occasional wheeze on the left, good air entry Heart- (+) irregularly irregular rhythm; no murmur, normal rate Abdomen- normal bowel sounds, soft, nontender Extremities- no pretibial edema, no calf tenderness Neuro- alert, oriented x 3; no gross focal deficits Skin- warm & dry Laboratory Results: Last 24 Hours Test 09/25/17 11:27 09/25/17 12:50 09/25/17 16:04 09/25/17 17:15 Bedside Glucose 223 mg/dl 229 mg/dl Urine Color YELLOW Urine Appearance TURBID Urine pH 5.0 Urine Specific [place] 1.019 Urine Protein TRACE Urine Glucose (UA) NEG Urine Ketones NEG Urine Occult Blood 1+ Urine Nitrite NEG Urine Bilirubin NEG Urine Urobilinogen NEG Urine Leukocyte Esterase LARGE Urine WBC (Auto) >30 /hpf Urine RBC (Auto) 5-10 /hpf Urine Hyaline Casts (Auto) 1-5 /lpf Urine Epithelial Cells (Auto) >30 /lpf Urine Bacteria (Auto) 4+ Urine Pathogenic Casts /lpf Urine Random Creatinine 82.0 mg/dl Urine Random Sodium 14 mEq/L Urine Random Urea Nitrogen 713 mg/dl Influenza Type A (RT-PCR) POS for Influ A Influenza Type B (RT-PCR) Neg for Influ B Test 09/25/17 20:01 09/26/17 05:08 09/26/17 07:06 Bedside Glucose 377 mg/dl 340 mg/dl White Blood Count 4.07 K/uL Red Blood Count 2.84 M/uL Hemoglobin 8.8 g/dL Hematocrit 26.8 % Mean Corpuscular Volume 94.4 fL Mean Corpuscular Hemoglobin 31.0 pg Mean Corpuscular Hemoglobin Concent 32.8 g/dl RDW Standard Deviation 47.4 fL RDW Coefficient of Variation 13.7 % Platelet Count 95 K/uL Mean Platelet Volume 10.5 fL Prothrombin Time 15.7 SECONDS Prothromb Time International Ratio 1.5 Activated Partial Thromboplast Time 44.8 SECONDS Partial Thromboplastin Ratio 1.7 Sodium Level 128 mmol/L Potassium Level 4.2 mmol/L Chloride Level 97 mmol/L Carbon Dioxide Level 23 mmol/L Anion Gap 8.0 mmol/L Blood Urea Nitrogen 65 mg/dl Creatinine 3.09 mg/dl Est Creatinine Clear Calc Drug Dose 17.5 ml/min Estimated GFR () 15.9 Estimated GFR (Non- 13.7 BUN/Creatinine Ratio 21.0 Random Glucose 311 mg/dl Calcium Level 8.3 mg/dl Magnesium Level 2.1 mg/dl Beta-Hydroxybutyric Acid 4.41 mg/dL Date/Time Source Procedure Growth Status 09/25/17 12:10 Sputum Expectorated Sputum Gram Stain Pending Received 09/25/17 12:10 Sputum Expectorated Sputum Sputum Culture Pending Received 09/25/17 12:50 Urine , Clean Catch Urine Culture - Preliminary Gram Negative Bacilli Resulted Assessment & Plan 77 year old female with history of COPD, Nocturnal Hypoxemia, A fib on Coumadin , CAD, DM, HTN presenting with shortness of breath. RAPID A FIB , ON CHRONIC COUMADIN - resolved - continue PO Cardizem INR 1.5 Heparin drip + Coumadin ACUTE CHF DIASTOLIC EXACERBATION - resolved now on the dry side ACUTE RENAL FAILURE ON CKD 4 - likely pre renal - Lasix held - crea increased to 3 - NSS at 60cc/hr Nephro consulted ACUTE HYPOXIC RESPIRATORY FAILURE SECONDARY TO COPD EXACERBATION, INFLUENZA A, POSSIBLE ACUTE BRONCHITIS - still on 3 L o2 - get sputum cultures - Tamiflu empiric Doxy increase Nebs to q4h Solumedrol 40mg q8h DM 2 - BSGs elevated from steroids, stress - Pharm consulted POSSIBLE UTI - urine culture pending - empiric Ceftri add Lactobacillus CAD - continue ASA DVT proph on heparin + coumadin Dispo pending PT/OT Consultants: Maribell Current Inpatient Medications: Current Inpatient Medications Medications (Trade) Dose Ordered Sig/Rose Route Start Time Stop Time Status Last Admin Dose Admin Acetaminophen (Tylenol Tab) 650 mg Q4H PRN PO 09/23/17 13:15 10/23/17 13:14 Al Hydrox/Mg Hydrox/Simethicone (Maalox Max Susp) 15 ml Q4H PRN PO 09/23/17 13:15 10/23/17 13:14 Magnesium Hydroxide (Milk Of Magnesia Susp) 30 ml Q12H PRN PO 09/23/17 13:15 10/23/17 13:14 Ondansetron HCl (Zofran Inj) 4 mg Q6H PRN IV 09/23/17 13:15 10/23/17 13:14 Nitroglycerin (Nitrostat Tab) 0.4 mg UD PRN SL 09/23/17 13:15 10/23/17 13:14 Aspirin (Ecotrin Tab) 81 mg QAM PO 09/24/17 09:00 10/24/17 08:59 09/26/17 08:38 81 MG Polyethylene (Miralax Powder Packet) 17 gm DAILY PRN PO 09/23/17 13:15 10/23/17 13:14 Budesonide (Pulmicort Respules 0.5MG/ 2ML Neb Soln) 0.5 mg BID INH 09/23/17 21:00 10/23/17 20:59 09/26/17 07:09 0.5 MG Ferrous Sulfate (Feosol Tab) 325 mg DAILY PO 09/24/17 09:00 10/24/17 08:59 09/26/17 08:38 325 MG Glucose (Glucose Chew Tab) 1 tab UD PRN PO 09/23/17 13:30 10/23/17 13:29 Insulin Glargine (Lantus Solostar Pen) 11 units PM SQ 09/23/17 21:00 10/23/17 20:59 09/25/17 20:43 11 UNITS Insulin Glargine (Lantus Solostar Pen) 25 units QAM SQ 09/24/17 09:00 10/24/17 08:59 09/26/17 08:46 25 UNITS Isosorbide Mononitrate (Imdur Ext Rel Tab) 30 mg DAILY PO 09/24/17 09:00 10/24/17 08:59 09/26/17 08:39 30 MG Losartan Potassium (coZAAR TAB) 100 mg DAILY PO 09/24/17 09:00 10/24/17 08:59 Future Hold 09/25/17 08:51 100 MG Warfarin Sodium (Coumadin Tab) 4 mg DAILY@1600 PO 09/23/17 17:00 10/23/17 16:59 09/25/17 16:16 4 MG Lovastatin (Mevacor Tab) 80 mg HS PO 09/23/17 21:00 10/23/17 20:59 09/25/17 20:51 80 MG Pantoprazole Sodium (Protonix Tab) 40 mg DAILY PO 09/24/17 09:00 10/24/17 08:59 09/26/17 08:38 40 MG Miscellaneous Information (Order Awaiting Action) 1 ea QS N/A 09/23/17 16:00 10/23/17 15:59 Insulin Human Regular (novoLIN-R) SLIDING SCALE IF C... ACHS SC 09/23/17 16:00 10/23/17 15:59 09/26/17 08:44 21 UNITS Glucose (Glucose 40% Gel) 15-30 GRAMS 15 GRAMS... UD PRN PO 09/23/17 13:30 10/23/17 13:29 Glucose (Glucose Chew Tab) 4-8 Tablets 4 Tabl... UD PRN PO 09/23/17 13:30 10/23/17 13:29 Dextrose (Dextrose 50% 50ML Syringe) 25-50ML OF 50% DW IV FOR... UD PRN IV 09/23/17 13:30 10/23/17 13:29 Glucagon (Glucagon Inj) 1 mg UD PRN SQ 09/23/17 13:30 10/23/17 13:29 Heparin Sodium/ Dextrose 500 ml @ 23 mls/hr [id number] PRN IV 09/23/17 14:45 10/23/17 14:44 09/25/17 12:40 20 MLS/HR Zolpidem Tartrate (Ambien Tab) 5 mg HS PRN PO 09/24/17 03:00 10/24/17 02:59 Diltiazem HCl (Cardizem Cd Cap) 120 mg BID PO 09/24/17 21:00 10/24/17 20:59 09/26/17 08:37 120 MG Calcitriol (Rocaltrol Cap) 0.5 mcg DAILY PO 09/25/17 09:00 10/25/17 08:59 09/26/17 08:38 0.5 MCG Potassium Chloride (Klor-Con Tab) 20 meq DAILY PO 09/25/17 09:00 10/25/17 08:59 09/26/17 08:38 20 MEQ Doxycycline Hyclate 100 mg/ Dextrose 110 ml @ 50 mls/hr Q12@0900,2100 IV 09/25/17 12:30 10/02/17 12:29 09/26/17 08:46 50 MLS/HR Methylprednisolone Sodium Succinate 40 mg/Syringe 0.64 ml @ 1.5 mls/min Q8H IV 09/25/17 13:00 10/25/17 12:59 09/26/17 04:25 1.5 MLS/MIN Ipratropium [place] (Atrovent 0.02% 0.5MG/2.5ML Neb) 0.5 mg Q6R INH 09/25/17 15:00 10/25/17 14:59 09/26/17 07:09 0.5 MG Levalbuterol (Xopenex 1.25MG/ 0.5ML Neb) 1.25 mg Q6R INH 09/25/17 15:00 10/25/17 14:59 09/26/17 07:09 1.25 MG Ceftriaxone Sodium 1 gm/ Dextrose 50 ml @ 100 mls/hr Q24H IV 09/25/17 16:30 09/30/17 16:29 09/25/17 16:15 100 MLS/HR Miscellaneous Information (Pharmacy Consult) 1 ea UD PRN N/A 09/25/17 19:30 10/25/17 19:29 Oseltamivir Phosphate (Tamiflu Susp) 30 mg DAILY@2000 PO 09/25/17 20:00 09/30/17 19:59 09/25/17 21:38 30 MG Lactobacillus Acidophilus (Floranex Tab) 4 tab TIDM PO 09/26/17 11:30 10/26/17 11:29
[2017-09-26] MEDS: SODIUM CHLORIDE 0.9% 1000ML 1,000 ML IV SCH (10:35)
--- NOTE | 2017-09-26 10:36 | PROGRESS NOTE ---
DATE: 09/26/2017 FOLLOWUP VISIT SUBJECTIVE: The patient is a 77-year-old female with a history of ischemic heart disease, diastolic dysfunction, paroxysmal atrial fibrillation, obesity, obstructive sleep apnea, diabetes and COPD. The patient presented with increased shortness of breath with associated atrial fibrillation and RVR. It was felt initially that she had diastolic heart failure with the atrial fibrillation; however, she has since been diagnosed with influenza. She is receiving Tamiflu. Currently, she is more comfortable. She remains in atrial fibrillation on the monitor, but the rate is well controlled. She has no new complaints today. OBJECTIVE: VITAL SIGNS: Blood pressure 130/60, pulse is irregular at 65 beats per minute. GENERAL: She is afebrile. HEENT: She is normocephalic. Pupils are equal and reactive to light. Extraocular muscles are intact bilaterally. NECK: The neck veins are flat. Carotids have good upstrokes bilaterally without bruits. Thyroid is nonpalpable. RESPIRATORY: Breath sounds equal bilaterally and clear to auscultation. CARDIOVASCULAR: Heart has an irregular rhythm. Normal S1, S2. No S3, S4. No cardiac rubs or murmurs. GASTROINTESTINAL: Abdomen is soft, nontender without organomegaly. EXTREMITIES: Free of edema, digit clubbing, or cyanosis. NEUROLOGIC: Grossly intact. SKIN: Warm to touch. LYMPH NODES: Negative to palpation. IMPRESSION: 1. Influenza. 2. Diastolic heart failure. 3. Atrial fibrillation. 4. Chronic obstructive pulmonary disease. RECOMMENDATIONS: At this point, I would continue her current treatment, especially supportive care for her flu.
[2017-09-26] MEDS ORDERED: PHARMACY GLYCEMIC MGMT CONSULT PRN (11:30)
[2017-09-26] MEDS: LACTOBACILLUS ACIDOPHILUS (FLORANEX) TAB PO SCH ×2 (11:58→17:28)
[2017-09-26] MEDS ORDERED: INSULIN GLARGINE SOLOSTAR 100 UNITS/ML 3 ML PEN SQ ONE (12:00)
[2017-09-26] MEDS ORDERED: INSULIN HUMAN REGULAR PER UNIT 5 UNITS in SYRINGE 4.95 ML IV ONE (12:15)
[2017-09-26] MEDS: INSULIN ASPART 100 UNITS/ML 3 ML PEN SC SCH ×2 (12:37→17:33)
[2017-09-26 14:36] LABS: PTT PATIENT 119.3 SECONDS (21.0-31.0)
[2017-09-26] MEDS: HEPARIN 25,000 UNIT/500ML D5W 500 ML IV PRN (16:11)
[2017-09-26] MEDS ORDERED: INSULIN HUMAN REGULAR PER UNIT 5 UNITS in SYRINGE 4.95 ML IV STA (17:06)
[2017-09-26] MEDS: WARFARIN SOD 4 MG TAB PO SCH (17:27)
[2017-09-26] MEDS: CEFTRIAXONE SOD INJ 1 GM in DEXTROSE 5% ADD-VANTAGE 50ML 50 ML IV SCH (17:27)
[2017-09-26] MEDS: LOVASTATIN 20 MG TAB PO SCH (21:30)
[2017-09-26] MEDS: OSELTAMIVIR PHOSPHATE SUSP 30 MG/5 ML UDP PO SCH (21:30)
[2017-09-26 22:43] LABS: PTT PATIENT 64.4 SECONDS (21.0-31.0)
[2017-09-27] VITALS (12 sets, daily range): BP systolic 148–168; BP diastolic 42–67; PULSE 57–81; TEMP 36.3–36.6; O2SAT 95–100
[2017-09-27] MEDS: INSULIN ASPART 100 UNITS/ML 3 ML PEN SC SCH ×7 (00:42→21:00)
[2017-09-27] MEDS: SODIUM CHLORIDE 0.9% 1000ML 1,000 ML IV SCH (02:40)
[2017-09-27] MEDS: IPRATROPIUM BROMIDE NEB SOLN 0.02% 2.5 ML VIAL INH SCH ×6 (03:04→23:30)
[2017-09-27] MEDS: LEVALBUTEROL 1.25MG/0.5ML NEB INH SCH ×6 (03:04→23:30)
[2017-09-27] MEDS: METHYLPREDNISOLONE IV 40 MG in SYRINGE 0 ML IV SCH ×3 (04:14→20:28)
[2017-09-27 05:07] LABS: HEMATOCRIT 26.6 % (37-47); HEMOGLOBIN 8.8 g/dL (12.0-16.0); MEAN CELL VOLUME 91.4 fL (80-100); MEAN CORPUSCULAR HEMOGLOBIN 30.2 pg (25-34); MEAN CORPUSCULAR HGB CONC 33.1 g/dl (32-36); RED CELL DISTRIBUTION WIDTH CV 13.2 % (11.5-14.5); RED CELL DISTRIBUTION WIDTH SD 44.1 fL (36.4-46.3); WHITE BLOOD COUNT 4.63 K/uL (4.8-10.8)
[2017-09-27 05:24] LABS: INR 2.1 (0.9-1.1)
[2017-09-27 05:26] LABS: PTT PATIENT 60.6 SECONDS (21.0-31.0)
[2017-09-27 05:33] LABS: CALCIUM 8.6 mg/dl (8.5-10.1); CREATININE 3.35 mg/dl (0.60-1.20); POTASSIUM 3.8 mmol/L (3.5-5.1)
[2017-09-27 05:38] LABS: MEAN PLATELET VOLUME 10.7 fL (7.4-10.4); PLATELET COUNT 95 K/uL (130-400)
[2017-09-27] MEDS: DILTIAZEM HCL 120 MG CAPCR PO SCH ×2 (08:49→20:29)
[2017-09-27] MEDS: PANTOprazole SOD 40 MG TAB PO SCH (08:49)
[2017-09-27] MEDS: CALCITRIOL 0.25 MCG CAP PO SCH (08:49)
[2017-09-27] MEDS: ASPIRIN 81 MG ECTAB PO SCH (08:50)
[2017-09-27] MEDS: LACTOBACILLUS ACIDOPHILUS (FLORANEX) TAB PO SCH ×3 (08:50→17:13)
[2017-09-27] MEDS: POTASSIUM CHLORIDE 20 MEQ TABCR PO SCH (08:50)
[2017-09-27] MEDS: ISOSORBIDE MONONITRATE 30 MG TABCR PO SCH (08:50)
[2017-09-27] MEDS: FERROUS SULFATE 325 MG TAB PO SCH (08:51)
[2017-09-27] MEDS: DOXYCYCLINE IV 100 MG in DEXTROSE 5% 100ML 100 ML IV SCH (08:51)
[2017-09-27] MEDS: INSULIN GLARGINE SOLOSTAR 100 UNITS/ML 3 ML PEN SQ SCH ×2 (09:01→20:31)
--- NOTE | 2017-09-27 09:33 | Progress Note ---
Medicine Progress Note Date & Time of Visit: Sep 27, 2017 at 09:33. Subjective sitting up in bedside chair, reading the news paper not in distress, speaks in sentences with no effort states she feels about the same as yesterday still had dyspnea with exertion less cough no chest pain denies abdominal pain ,nausea no other symptoms Objective Last 8 Hrs Date Time Temp Pulse Resp B/P (MAP) Pulse Ox O2 Delivery O2 Flow Rate FiO2 09/27/17 07:47 36.6 76 20 148/42 (77) 100 09/27/17 07:21 70 18 99 Nasal Cannula 3.0 09/27/17 04:00 36.6 81 20 148/47 (80) 100 Nasal Cannula 3.0 09/27/17 04:00 Nasal Cannula 3.0 Oxymask 09/27/17 03:05 65 18 96 Nasal Cannula 3.0 Physical Exam: General- oriented x 3, not in distress, speaks in sentences with no effort, no acc muscle use Eyes- anicteric ENT- oropharynx clear Neck- supple, no JVD Lungs- diminished breath sounds, occasional wheezes Heart- (+) irregularly irregular rhythm; no murmur, normal rate Abdomen- normal bowel sounds, soft, nontender Extremities- no pretibial edema, no calf tenderness Neuro- alert, oriented x 3; no gross focal deficits Skin- warm & dry Laboratory Results: Last 24 Hours Test 09/26/17 11:15 09/26/17 13:43 09/26/17 16:26 09/26/17 20:07 Bedside Glucose 574 mg/dl 382 mg/dl 251 mg/dl Activated Partial Thromboplast Time 119.3 SECONDS Partial Thromboplastin Ratio 4.6 Test 09/26/17 21:57 09/27/17 00:01 09/27/17 04:01 09/27/17 04:56 Activated Partial Thromboplast Time 64.4 SECONDS 60.6 SECONDS Partial Thromboplastin Ratio 2.5 2.3 Bedside Glucose 223 mg/dl 211 mg/dl White Blood Count 4.63 K/uL Red Blood Count 2.91 M/uL Hemoglobin 8.8 g/dL Hematocrit 26.6 % Mean Corpuscular Volume 91.4 fL Mean Corpuscular Hemoglobin 30.2 pg Mean Corpuscular Hemoglobin Concent 33.1 g/dl RDW Standard Deviation 44.1 fL RDW Coefficient of Variation 13.2 % Platelet Count 95 K/uL Mean Platelet Volume 10.7 fL Prothrombin Time 21.3 SECONDS Prothromb Time International Ratio 2.1 Sodium Level 128 mmol/L Potassium Level 3.8 mmol/L Chloride Level 95 mmol/L Carbon Dioxide Level 22 mmol/L Anion Gap 11.0 mmol/L Blood Urea Nitrogen 74 mg/dl Creatinine 3.35 mg/dl Est Creatinine Clear Calc Drug Dose 16.2 ml/min Estimated GFR () 14.4 Estimated GFR (Non- 12.4 BUN/Creatinine Ratio 22.0 Random Glucose 221 mg/dl Calcium Level 8.6 mg/dl Magnesium Level 2.0 mg/dl Total Creatine Kinase 84 U/L Test 09/27/17 06:47 Bedside Glucose 224 mg/dl Assessment & Plan 77 year old female with history of COPD, Nocturnal Hypoxemia, A fib on Coumadin , CAD, DM, HTN presenting with shortness of breath. RAPID A FIB , ON CHRONIC COUMADIN - resolved - continue PO Cardizem INR 2.1 continue coumadin ACUTE CHF DIASTOLIC EXACERBATION ACUTE RENAL FAILURE ON CKD 4 - likely pre renal - Lasix held - crea increased to 3.1, now 3.3 - goven NSS at 60cc/hr Cardio and Nephro consulted - at around 4pm. Dr. Dalton called me to discuss his recommendation patient felt to have ATN but currently overloaded stopped IV fluids, Lasix IV started - follow closely ACUTE HYPOXIC RESPIRATORY FAILURE SECONDARY TO COPD EXACERBATION, INFLUENZA A, POSSIBLE ACUTE BRONCHITIS - still on 3 L o2 - get sputum cultures - Tamiflu increase Nebs to q4h Solumedrol 40mg q8h - Pulmonary consulted DM 2 - BSGs elevated from steroids, stress - Pharm consulted discussed with Pharmacy in the afternoon patient to be started on Insulin drip but need to monitor K PRP every 6 hours KLEBSIELLA UTI - Day 3 Ceftri Lactobacillus CAD - continue ASA DVT proph on coumadin Dispo pending PT/OT Consultants: Maribell Current Inpatient Medications: Current Inpatient Medications Medications (Trade) Dose Ordered Sig/Rose Route Start Time Stop Time Status Last Admin Dose Admin Acetaminophen (Tylenol Tab) 650 mg Q4H PRN PO 09/23/17 13:15 10/23/17 13:14 Al Hydrox/Mg Hydrox/Simethicone (Maalox Max Susp) 15 ml Q4H PRN PO 09/23/17 13:15 10/23/17 13:14 Magnesium Hydroxide (Milk Of Magnesia Susp) 30 ml Q12H PRN PO 09/23/17 13:15 10/23/17 13:14 Ondansetron HCl (Zofran Inj) 4 mg Q6H PRN IV 09/23/17 13:15 10/23/17 13:14 Nitroglycerin (Nitrostat Tab) 0.4 mg UD PRN SL 09/23/17 13:15 10/23/17 13:14 Aspirin (Ecotrin Tab) 81 mg QAM PO 09/24/17 09:00 10/24/17 08:59 09/27/17 08:50 81 MG Polyethylene (Miralax Powder Packet) 17 gm DAILY PRN PO 09/23/17 13:15 10/23/17 13:14 Budesonide (Pulmicort Respules 0.5MG/ 2ML Neb Soln) 0.5 mg BID INH 09/23/17 21:00 10/23/17 20:59 09/26/17 19:32 0.5 MG Ferrous Sulfate (Feosol Tab) 325 mg DAILY PO 09/24/17 09:00 10/24/17 08:59 09/27/17 08:51 325 MG Glucose (Glucose Chew Tab) 1 tab UD PRN PO 09/23/17 13:30 10/23/17 13:29 Isosorbide Mononitrate (Imdur Ext Rel Tab) 30 mg DAILY PO 09/24/17 09:00 10/24/17 08:59 09/27/17 08:50 30 MG Losartan Potassium (coZAAR TAB) 100 mg DAILY PO 09/24/17 09:00 10/24/17 08:59 Future Hold 09/25/17 08:51 100 MG Warfarin Sodium (Coumadin Tab) 4 mg DAILY@1600 PO 09/23/17 17:00 10/23/17 16:59 09/26/17 17:27 4 MG Lovastatin (Mevacor Tab) 80 mg HS PO 09/23/17 21:00 10/23/17 20:59 09/26/17 21:30 80 MG Pantoprazole Sodium (Protonix Tab) 40 mg DAILY PO 09/24/17 09:00 10/24/17 08:59 09/27/17 08:49 40 MG Miscellaneous Information (Order Awaiting Action) 1 ea QS N/A 09/23/17 16:00 10/23/17 15:59 Glucose (Glucose 40% Gel) 15-30 GRAMS 15 GRAMS... UD PRN PO 09/23/17 13:30 10/23/17 13:29 Glucose (Glucose Chew Tab) 4-8 Tablets 4 Tabl... UD PRN PO 09/23/17 13:30 10/23/17 13:29 Dextrose (Dextrose 50% 50ML Syringe) 25-50ML OF 50% DW IV FOR... UD PRN IV 09/23/17 13:30 10/23/17 13:29 Glucagon (Glucagon Inj) 1 mg UD PRN SQ 09/23/17 13:30 10/23/17 13:29 Zolpidem Tartrate (Ambien Tab) 5 mg HS PRN PO 09/24/17 03:00 10/24/17 02:59 Diltiazem HCl (Cardizem Cd Cap) 120 mg BID PO 09/24/17 21:00 10/24/17 20:59 09/27/17 08:49 120 MG Calcitriol (Rocaltrol Cap) 0.5 mcg DAILY PO 09/25/17 09:00 10/25/17 08:59 09/27/17 08:49 0.5 MCG Potassium Chloride (Klor-Con Tab) 20 meq DAILY PO 09/25/17 09:00 10/25/17 08:59 09/27/17 08:50 20 MEQ Methylprednisolone Sodium Succinate 40 mg/Syringe 0.64 ml @ 1.5 mls/min Q8H IV 09/25/17 13:00 10/25/17 12:59 09/27/17 04:14 1.5 MLS/MIN Ceftriaxone Sodium 1 gm/ Dextrose 50 ml @ 100 mls/hr Q24H IV 09/25/17 16:30 09/30/17 16:29 09/26/17 17:27 100 MLS/HR Miscellaneous Information (Pharmacy Consult) 1 ea UD PRN N/A 09/25/17 19:30 10/25/17 19:29 Lactobacillus Acidophilus (Floranex Tab) 4 tab TIDM PO 09/26/17 11:30 10/26/17 11:29 09/27/17 08:50 4 TAB Sodium Chloride 1,000 ml @ 60 mls/hr [id number] IV 09/26/17 10:00 10/26/17 09:59 09/27/17 02:40 60 MLS/HR Ipratropium [place]ell (Atrovent 0.02% 0.5MG/2.5ML Neb) 0.5 mg Q4R INH 09/26/17 12:00 10/26/17 11:59 09/27/17 07:06 0.5 MG Levalbuterol (Xopenex 1.25MG/ 0.5ML Neb) 1.25 mg Q4R INH 09/26/17 12:00 10/26/17 11:59 09/27/17 07:06 1.25 MG Miscellaneous Information (Consult Glycemic Management Pharmacy) 1 ea UD PRN N/A 09/26/17 11:30 10/26/17 11:29 Insulin Aspart (novoLOG ASPART) SLIDING SCALE ACHS SC 09/26/17 12:00 10/26/17 11:59 Future hold 09/27/17 09:00 16 UNITS Insulin Glargine (Lantus Solostar Pen) SEE PROTOCOL BID SQ 09/26/17 21:00 10/26/17 20:59 09/27/17 09:01 34 UNITS
[2017-09-27] MEDS ORDERED: GUAIFENESIN 600 MG TABCR PO ONE (09:51)
--- NOTE | 2017-09-27 10:03 | PROGRESS NOTE ---
DATE: 09/27/2017 FOLLOWUP VISIT SUBJECTIVE: The patient is a 77-year-old with ischemic heart disease, diastolic dysfunction, and paroxysmal atrial fibrillation. She was admitted with what was felt to be heart failure, but after diuresis and prerenal renal failure, the patient's influenza swabs came back positive. She continues to be short of breath with any type of activity. She states that she can get up to go to the commode without becoming short of breath. She has had no chest pain. She has controlled atrial fibrillation. OBJECTIVE: GENERAL: She is alert and oriented in no acute distress. VITAL SIGNS: Blood pressure is 140/50 and pulse is irregular at 76. She is afebrile. HEENT: She is normocephalic. Pupils are equal and reactive to light. Extraocular muscles are intact bilaterally. NECK: The neck veins are flat. Carotids have good upstrokes bilaterally without bruits. Thyroid is nonpalpable. RESPIRATORY: Breath sounds equal bilaterally. There is wheezing in both lung cole. CARDIOVASCULAR: Heart has an irregular rhythm. There are no cardiac rubs or murmurs. GASTROINTESTINAL: Abdomen is soft and nontender without organomegaly. EXTREMITIES: Free of edema, digit clubbing, or cyanosis. NEUROLOGIC: Grossly intact. SKIN: Warm to touch. LYMPH NODES: Negative to palpation. LABORATORY DATA: Creatinine is 3.35, sodium is 128, and potassium is 3.8. INR is 2.1. Hemoglobin is 8.8. IMPRESSION: 1. Influenza. 2. Diastolic heart failure and atrial fibrillation. 3. Chronic obstructive pulmonary disease. 4. Acute on chronic renal failure. RECOMMENDATIONS: I agree with stopping the patient's heparin since her Coumadin is therapeutic. She does have some wheezing today. It is concerned that she may be volume overloaded; however, with her creatinine being 3.35 and was almost normal on admission, I would not give her any additional diuretics. I understand that nephrology as well as pulmonary have been consulted. We will wait for their suggestions.
[2017-09-27] MEDS: FUROSEMIDE INJ 60 MG in SYRINGE 0 ML IV SCH (16:13)
[2017-09-27] MEDS ORDERED: INSULIN HUMAN REGULAR IV BOLUS 4.5 UNIT in SYRINGE 0 ML IV ONE (16:15)
[2017-09-27] MEDS ORDERED: POTASSIUM CHLORIDE 10 MEQ TABCR PO ONE (16:15)
--- NOTE | 2017-09-27 16:22 | NEPHROLOGY CONSULTATION ---
DATE OF CONSULTATION: 09/27/2017 REASON FOR CONSULT: Acute renal failure on background CKD stage III. HISTORY OF PRESENT ILLNESS: The patient is a 77-year-old female with past medical history of COPD, on nocturnal oxygen; paroxysmal AFib, on Coumadin; coronary artery disease; history of congestive heart failure; type 2 diabetes, on insulin; as well as CKD stage III; who presented to the hospital 4 days ago with chest pain and shortness of breath. In the Emergency Department, she was found to have rapid heart rate with AFib and hypertensive urgency as well as congestive heart failure. She was also found to have influenza A positive as well as Klebsiella urinary tract infection. Creatinine at the time of admission was 1.63, which is close to her baseline, but since admission it has steadily gone up to 2 and then 2.65 then 3 and then this morning 3.35. Initially, she got IV Lasix but Lasix was stopped and IV fluid was given for the last 1 day. The patient claims that she is actually getting worse and her shortness of breath is getting worse every day. She is making urine. Urine output was 1800 mL yesterday. At this time, she is getting IV fluid and no Lasix. She denies having other GI symptoms. Denies nausea, vomiting, or any urinary problems. Cardiology has been seeing patient every day, who also feels that patient probably needs an IV Lasix but she has not been getting Lasix because of concern about the kidney function, which is still getting worse. When I examined patient, she is clearly short of breath and is not able to speak full long sentence without pause. At home, she does take Lasix and is followed by Dr. Do in cardiology department. The patient thinks she takes Lasix 40 mg twice daily at home. PAST MEDICAL AND SURGICAL HISTORY: Chronic COPD, on oxygen; atrial fibrillation; chronic C. diff colitis history; history of stroke; type 2 diabetes of longstanding duration; diabetic neuropathy; gastroesophageal reflux disease; history of coronary artery disease; history of diastolic congestive heart failure; GI bleed; hyperlipidemia; hypertension; migraine; history of PE; sleep apnea; history of coronary stenting; appendicectomy; total left hip arthroplasty; ovary removal; chronic kidney disease stage III. FAMILY HISTORY: Positive for cervical cancer. SOCIAL HISTORY: Former smoker. She lives alone. ALLERGIES: List was reviewed in detail and includes CODEINE, ASPIRIN, VENLAFAXINE, CEPHALEXIN, OXYCODONE. HOME MEDICATIONS: List was reviewed in detail. She does take Lasix 40 mg twice daily as well as other medications, all of which have been reviewed in detail. At home, she also takes losartan 100 daily. REVIEW OF SYSTEMS: She denies taking any NSAIDs prior to coming to the hospital. Review of system, at this time she definitely feels very weak, significantly more short of breath than usual. Appetite is poor. No urinary complaints. Denies nausea, vomiting, abdominal pain, diarrhea or bloody stool. She has chronic symptoms of osteoarthritis. Total systems reviewed was 12 and is otherwise negative. PHYSICAL EXAMINATION: GENERAL: Elderly white female who does appear to be in some respiratory distress. She cannot speak a long full sentence without a pause. Awake, alert, oriented x3. VITAL SIGNS: Blood pressure is 150/67, 95% oxygen on 3 liters nasal cannula, pulse rate 57 per minute, temperature 36.6. HEENT: Mucous membrane is moist. NECK: Supple, obese and hard to appreciate jugular venous distention. CHEST: Bilateral decreased breath sounds with basal crackles. CARDIOVASCULAR: S1 and S2, irregular. Soft systolic murmur heard. ABDOMEN: Soft and nontender, obese. EXTREMITIES: Shows 3+ edema. According to patient this is getting worse. LABORATORY TESTS: She is positive for influenza A. Urine culture was positive for Klebsiella UTI. Laboratory test from this morning shows rising creatinine with this morning it was 3.35, BUN 74. Sodium 128, potassium 3.8, calcium 8.6, magnesium 2.0. At the time of admission 4 days ago creatinine was 1.63 and sodium was normal at 139. Chest x-ray shows congestive heart failure. ASSESSMENT AND PLAN: A 77-year-old female who presented with shortness of breath, most likely related with influenza as well as atrial fibrillation with rapid ventricular response and diastolic congestive heart failure. I have been consulted because of acute renal failure on background chronic kidney disease III. 1. Acute renal failure. This is on top of background chronic kidney disease III. It is not surprising that in the context of influenza, congestive heart failure, atrial fibrillation with rapid ventricular response that she developed acute tubular necrosis. This is not a case of volume depletion, and holding diuretics is not going to help her. In fact, she is significantly short of breath at this time and I am more worried about her breathing than anything. I would give 60 mg IV Lasix now. In followup, if she does not have good diuretic response, she can have another dose later tonight. Looking at the urine and the clinical context, we do not need to do any detailed workup for acute renal failure as the etiology is fairly obvious. She is making urine, so this is nonoliguric acute tubular necrosis, which has better prognosis. However, given her age and her comorbid medical problems, she may still need dialysis during this hospital stay. 2. Hyponatremia. This is hypervolemic hyponatremia secondary to congestive heart failure and increasing fluid retention in the setting of acute renal failure. This should gradually get better with the use of IV Lasix. Continue daily labs. MTDD
--- NOTE | 2017-09-27 16:28 | Pharmacy Progress Note ---
Glycemic Control Progress Note Date of Service Sep 27, 2017. Scope Glycemic Pharmacist consulted for glycemic control to write orders per [facility] inpatient glycemic control protocol. Objective Accuchecks BSG (last 24hrs): Test 09/26/17 16:26 09/26/17 20:07 09/27/17 00:01 09/27/17 04:01 Bedside Glucose 382 mg/dl (70-90) 251 mg/dl (70-90) 223 mg/dl (70-90) 211 mg/dl (70-90) Test 09/27/17 04:56 09/27/17 06:47 09/27/17 14:57 Random Glucose 221 mg/dl (70-99) Bedside Glucose 224 mg/dl (70-90) 377 mg/dl (70-90) HbA1c: Test 09/24/17 04:46 Hemoglobin A1c 7.4 % (4.5-5.6) H Recent Pertinent Medications The patient is currently receiving: * Basal insulin: Lantus 34 units every 12 hours * Correctional Insulin: Novolog Correction per scale ACHS Goal Range: Low 110 mg/dL - High 140 mg/dL Correction Factor: 10 mg/dL/unit * Prandial insulin: Per carb ratio of 1 unit per 4 grams CHO consumed Outpatient Anti-Diabetic Meds * Lantus 25 units Q AM + 11 units Q PM * Novolog SSI Assessment & Plan ASSESSMENT: * See progress note from 09/25/17 for more background info, in short: * Pt receiving SQ basal bolus insulin regimen for hyperglycemia secondary to baseline DM (outpatient regimen on hold), stress/infection, dextrose IVF, and high-dose IV steroids * Patient received 173 units of SQ insulin yesterday plus 10 units regular IV insulin * BSGs all above range * Changes needed to insulin regimen: * AM Fasting BSG = 224 mg/dl. This is after aggressive changes to Lantus plus 17 units of Novolog overnight * At this time, SQ basal/bolus regimen is not effective and BSGs continue to be above goal range * Spoke with Dr. Fernandez - time to start insulin drip * Continue Lantus in addition to tight carb coverage to make for smoother transition when able * Fluids to be held at this time (Lasix started for volume overload?) - Dr. Fernandez to clarify with consulting services * PRP to be added every 6 hours to keep track of electrolyte shifts PLAN FOR INPATIENT GLYCEMIC CONTROL: * Starting IV insulin infusion per high stress protocol * Goal Range 100 - 180 mg/dl * In the critical care setting, continuous IV insulin infusion has been shown to be the best method for achieving glycemic targets. * Basal insulin: Continue with drip * Lantus 34 units SQ BID * Bolus insulin: Continue with drip * NovoLog per scale PCHS * Nutritional / Prandial insulin per carb ratio of 1 unit per 4 grams CHO consumed * Please note that the plan above was derived based on current level of insulin resistance and hospital stress. These recommendations are appropriate for inpatient admission only. Plan of care upon discharge will need to be reassessed to avoid potential outpatient hypo/hyperglycemia. Thank you.
[2017-09-27] MEDS ORDERED: INSULIN REGULAR 250 UNITS in SODIUM CHLORIDE 0.9% 250ML 250 ML IV SCH (16:30)
[2017-09-27] MEDS: CEFTRIAXONE SOD INJ 1 GM in DEXTROSE 5% ADD-VANTAGE 50ML 50 ML IV SCH (16:57)
[2017-09-27] MEDS: WARFARIN SOD 4 MG TAB PO SCH (16:58)
[2017-09-27 17:23] LABS: CALCIUM 9.2 mg/dl (8.5-10.1); CREATININE 3.09 mg/dl (0.60-1.20); POTASSIUM 4.3 mmol/L (3.5-5.1)
--- NOTE | 2017-09-27 17:49 | Pulmonary Consultation ---
History General Date of Service: Sep 27, 2017. Stated Complaint: CHF HPI The patient is a 77 year old female who presents to [facility] with complaints of CHF. The patient's primary care provider is Kerry Waterman D.O.. Historian: patient Onset: last week Severity: moderate Review of Systems Constitutional: reports: no symptoms, fever Eyes: reports: no symptoms ENT: reports: no symptoms Cardiovascular: reports: no symptoms Respiratory: reports: shortness of breath Gastrointestinal: reports: no symptoms Musculoskeletal: reports: no symptoms, other (increased edema in the lower extremities) Neurologic: reports: no symptoms Past Medical History Past Medical History: Diastolic heart failure, diabetes, possible COPD but she has not been treated for it, she does have a nebulizer at home which she has not been using it very frequently. She is not on inhaled therapy chronically. Chronic kidney disease. Gastroparesis. Past Surgical History: Cardiac cath about a month ago which revealed mild coronary artery disease, however her RVSP was 40. Family History FH: cancer MOTHER (cervical) BROTHER (skin, testicular) Social History Hx Tobacco Use In Past Year?: No Smoking Status: Former Smoker Marital status: Housing status: lives alone, other Occupational Status: retired Immunizations History of Influenza Vaccine: Yes Influenza Vaccine Date: May 31, 2016 History of Tetanus Vaccine?: Yes Tetanus Immunization Date: Feb 20, 2012 History of Pneumococcal: Yes Pneumococcal Date: Nov 04, 2000 History of Hepatitis B Vaccine: No History of MDRO History of MDRO: No Allergies Coded Allergies: Codeine (Verified Allergy, Unknown, UNKNOWN, 09/23/17) INFO FROM PT Aspirin (Verified Adverse Reaction, Intermediate, (ULCER), 09/23/17) Venlafaxine (Verified Adverse Reaction, Intermediate, DROWINESS/ CONFUSION , 09/23/17) Cephalexin (Verified Adverse Reaction, Mild, DROWSINESS, UNABLE TO DRIVE, UPSET STOMACH, 09/23/17) Oxycodone (Verified Adverse Reaction, Mild, n/v, 09/23/17) gmg Current Medications Reported Home Medications Medications Dose Route/Sig Max Daily Dose Days Date Category Dose Instructions Calcitriol 0.25 Mcg Cap 0.5 Mcg PO DAILY 09/24/17 Reported Klor-Con M20 (Potassium Chloride) 20 Meq Tabcr 20 Meq PO DAILY 09/24/17 Reported Lasix (Furosemide) 40 Mg Tab 1 Tab PO BID 30 09/23/17 Rx Isosorbide Mononitrate ER (Isosorbide Mononitrate) 30 Mg Tabcr 30 Mg PO DAILY 30 08/13/17 Rx Diltiazem Cd (Diltiazem HCl) 120 Mg Capcr 120 Mg PO BID 30 08/13/17 Rx [Utibron] INH UD 08/10/17 Reported Pulmicort Respules 0.5MG/2ML (Budesonide (Inhalation)) 0.5 Mg/2 Ml [place] 1 Vial NEB BID 05/10/17 Reported Cozaar (Losartan Potassium) 100 Mg Tab 100 Mg PO DAILY 02/09/17 Reported Oxygen Gas 3.5 Liters NA HS 02/09/17 Reported Glucose (Glucose-Vitamin C) 1 Chw Chw 1 Tab PO UD PRN 02/09/17 Reported Coumadin (Warfarin Sodium) 2 Mg Tab 2 Mg PO UD 02/09/17 Reported Take 2mg daily on MON, TU, WED, THU, SAT Ferrous Sulfate 325 Mg Tab 325 Mg PO DAILY 01/06/17 Reported Jantoven (Warfarin Sodium) 4 Mg Tab 4 Mg PO UD 01/06/17 Reported 4mg daily on Thu, Novolog (Insulin Aspart) 100 Units/Ml Inj ACHS 01/06/17 Reported SLIDING SCALE Mevacor (Lovastatin) 40 Mg Tab 80 Mg PO HS 09/07/16 Reported Hold for 1 month Lantus (Insulin Glargine) 100 Unit/Ml Inj 11 Units SQ EVENING MEAL 09/07/16 Reported Lantus (Insulin Glargine) 100 Unit/Ml Inj 25 Units SQ QAM 09/07/16 Reported Levalbuterol Hcl 1.25 Mg/3 Ml Neb 3 Ml INH Q4 PRN 05/15/16 Reported Vesicare (Solifenacin) 5 Mg Tab 5 Mg PO DAILY 05/15/16 Reported Nitrostat (Nitroglycerin) 0.4 Mg Sub 0.4 Mg UT PRN PRN 06/20/15 Reported Omeprazole 20 Mg Tab 20 Mg PO DAILY 06/20/15 Reported Physical Physical Exam Vital Signs: Date Time Temp Pulse Resp B/P (MAP) Pulse Ox O2 Delivery O2 Flow Rate FiO2 09/27/17 16:32 36.6 75 22 168/61 (96) 98 Nasal Cannula 3.0 09/27/17 15:31 68 20 98 Nasal Cannula 3.0 09/27/17 12:00 Nasal Cannula 3.0 Oxymask 09/27/17 11:45 36.6 57 22 150/67 (94) 95 09/27/17 11:02 80 20 99 Nasal Cannula 3.0 09/27/17 08:00 Nasal Cannula 3.0 Oxymask 09/27/17 07:47 36.6 76 20 148/42 (77) 100 09/27/17 07:21 70 18 99 Nasal Cannula 3.0 09/27/17 04:00 36.6 81 20 148/47 (80) 100 Nasal Cannula 3.0 09/27/17 04:00 Nasal Cannula 3.0 Oxymask 09/27/17 03:05 65 18 96 Nasal Cannula 3.0 09/27/17 00:00 Nasal Cannula 3.0 Oxymask 09/26/17 23:30 36.4 86 20 149/48 (81) 96 Nasal Cannula 3.0 09/26/17 23:06 64 20 98 Nasal Cannula 4.0 09/26/17 20:31 36.3 69 18 149/47 (81) 99 Nasal Cannula 2.0 09/26/17 20:00 Nasal Cannula 3.0 Oxymask 09/26/17 19:32 68 20 99 Nasal Cannula 3.0 General Appearance: WELL-APPEARING, mild distress Eyes: PERRLA, EOMI ENT: NORMAL EAR EXAM Neck: NORMAL RANGE OF MOTION, TRACHEA MIDLINE Respiratory: BREATH SOUNDS NORMAL Cardiovasular: REGULAR RATE/RHYTHM, NORMAL S1S2, NO M/G/R, NO MURMUR Abdomen: NON TENDER, NO MASSES Lower Extremities: edema Neuro: ALERT, ORIENTED x 3, NORMAL MOTOR EXAM, NORMAL SENSATION Psychiatric: NORMAL AFFECT Diagnostics Labs Results Past 24 Hours Test 09/26/17 20:07 09/26/17 21:57 09/27/17 00:01 09/27/17 04:01 Range/Units Bedside Glucose 251 223 211 70-90 mg/dl Activated Partial Thromboplast Time 64.4 21.0-31.0 SECONDS Partial Thromboplastin Ratio 2.5 Test 09/27/17 04:56 09/27/17 06:47 09/27/17 14:57 09/27/17 16:05 Range/Units White Blood Count 4.63 4.8-10.8 K/uL Red Blood Count 2.91 4.2-5.4 M/uL Hemoglobin 8.8 12.0-16.0 g/dL Hematocrit 26.6 37-47 % Mean Corpuscular Volume 91.4 80-100 fL Mean Corpuscular Hemoglobin 30.2 25-34 pg Mean Corpuscular Hemoglobin Concent 33.1 32-36 g/dl RDW Standard Deviation 44.1 36.4-46.3 fL RDW Coefficient of Variation 13.2 11.5-14.5 % Platelet Count 95 130-400 K/uL Mean Platelet Volume 10.7 7.4-10.4 fL Prothrombin Time 21.3 9.0-12.0 SECONDS Prothromb Time International Ratio 2.1 0.9-1.1 Activated Partial Thromboplast Time 60.6 21.0-31.0 SECONDS Partial Thromboplastin Ratio 2.3 Sodium Level 128 136-145 mmol/L Potassium Level 3.8 3.5-5.1 mmol/L Chloride Level 95 98-107 mmol/L Carbon Dioxide Level 22 21-32 mmol/L Anion Gap 11.0 3-11 mmol/L Blood Urea Nitrogen 74 7-18 mg/dl Creatinine 3.35 0.60-1.20 mg/dl Est Creatinine Clear Calc Drug Dose 16.2 ml/min Estimated GFR () 14.4 Estimated GFR (Non- 12.4 BUN/Creatinine Ratio 22.0 10-20 Random Glucose 221 70-99 mg/dl Calcium Level 8.6 8.5-10.1 mg/dl Magnesium Level 2.0 1.8-2.4 mg/dl Total Creatine Kinase 84 26-192 U/L Bedside Glucose 224 377 325 70-90 mg/dl Test 09/27/17 16:56 Range/Units Sodium Level 130 136-145 mmol/L Potassium Level 4.3 3.5-5.1 mmol/L Chloride Level 96 98-107 mmol/L Carbon Dioxide Level 21 21-32 mmol/L Anion Gap 13.0 3-11 mmol/L Blood Urea Nitrogen 74 7-18 mg/dl Creatinine 3.09 0.60-1.20 mg/dl Est Creatinine Clear Calc Drug Dose 17.9 ml/min Estimated GFR () 15.9 Estimated GFR (Non- 13.7 BUN/Creatinine Ratio 23.9 10-20 Random Glucose 318 70-99 mg/dl Calcium Level 9.2 8.5-10.1 mg/dl Beta-Hydroxybutyric Acid 1.63 0.2-2.81 mg/dL Radiology Interpretation: CXR NORMAL, other (chest x-ray was reviewed which showed hyperinflated lungs, cardiomegaly and pulmonary vascular congestion. Small pleural effusion.) Impression Assessment and Plan In summary, this is 77-year-old female with a history of congestive heart failure, chronic kidney disease stage IV, diabetes, gastroparesis, ex smoker with over than 30 pack year history quit in 1989, history of coronary artery disease with preserved LV, recent cardiac cath was done over a month ago, pulmonary hypertension with RVSP of 40, morbid obesity, on home O2 for her cardiac and pulmonary disease. The patient presented to the hospital with increasing shortness of breath for the past several days. Her symptoms has been escalating with increased swelling in her lower extremities. The patient has dyspnea on exertion with walking less than 10 feet. She continued to have shortness of breath when I interviewed her. She was complaining of dry cough occasionally. No hemoptysis was reported. No nausea or vomiting. She did not have any heartburn but she is taking medications for it. The patient denies any rhinorrhea and no postnasal drip. No dizziness palpitation although she had a history of A. fib but she has been rate controlled and anticoagulated on Coumadin. Her anti-cannulation was subtherapeutic. Impression: #1 dyspnea, likely multifactorial, although the patient does not have significant symptoms of COPD exacerbation, agree with your current management at this point. #2 the patient remains fluid overloaded with significant pitting edema in the lower extremities. The patient still positive fluid balance on this admission almost 2-1/2 L. #3 chronic kidney disease, stage IV, the patient could benefit from Lasix drip. #4. Pulmicort. #5 continue with Solu-Medrol. #6 continue with bronchodilators. #7 long-acting beta agonists. #8 agree with obtaining influenza antigen. #9 no evidence of pneumonia. May continue ceftriaxone for treatment of Klebsiella, pansensitive UTI. #10 continue with oxygen on 24/7 basis. #11 the patient with benefit from CPAP machine at home. #12 obtain VQ scan, the patient was subtherapeutic on Coumadin, she is at high risk for PE. #13 the patient is not a candidate for vasodilator trial for pulmonary hypertension. Thank you, will follow.
[2017-09-27] MEDS: LOVASTATIN 20 MG TAB PO SCH (20:28)
[2017-09-27] MEDS: GUAIFENESIN 600 MG TABCR PO SCH (20:29)
[2017-09-27 22:59] LABS: CALCIUM 9.4 mg/dl (8.5-10.1); CREATININE 2.99 mg/dl (0.60-1.20); POTASSIUM 4.8 mmol/L (3.5-5.1)
[2017-09-28] VITALS (15 sets, daily range): BP systolic 152–176; BP diastolic 47–63; PULSE 70–100; TEMP 36.4–36.8; O2SAT 95–100
[2017-09-28] MEDS: IPRATROPIUM BROMIDE NEB SOLN 0.02% 2.5 ML VIAL INH SCH ×5 (04:01→19:07)
[2017-09-28] MEDS: LEVALBUTEROL 1.25MG/0.5ML NEB INH SCH ×5 (04:01→19:07)
[2017-09-28 04:52] LABS: INR 2.7 (0.9-1.1); PTT PATIENT 36.4 SECONDS (21.0-31.0)
[2017-09-28] MEDS: METHYLPREDNISOLONE IV 40 MG in SYRINGE 0 ML IV SCH ×3 (05:02→21:37)
[2017-09-28 05:04] LABS: CREATININE 2.84 mg/dl (0.60-1.20); POTASSIUM 4.6 mmol/L (3.5-5.1)
[2017-09-28] MEDS: LACTOBACILLUS ACIDOPHILUS (FLORANEX) TAB PO SCH ×3 (08:31→16:45)
[2017-09-28] MEDS: DILTIAZEM HCL 120 MG CAPCR PO SCH ×2 (08:31→21:37)
[2017-09-28] MEDS: ISOSORBIDE MONONITRATE 30 MG TABCR PO SCH (08:32)
[2017-09-28] MEDS: FERROUS SULFATE 325 MG TAB PO SCH (08:32)
[2017-09-28] MEDS: PANTOprazole SOD 40 MG TAB PO SCH (08:32)
[2017-09-28] MEDS: CALCITRIOL 0.25 MCG CAP PO SCH (08:32)
[2017-09-28] MEDS: GUAIFENESIN 600 MG TABCR PO SCH ×2 (08:32→21:36)
[2017-09-28] MEDS: POTASSIUM CHLORIDE 20 MEQ TABCR PO SCH (08:32)
[2017-09-28] MEDS: ASPIRIN 81 MG ECTAB PO SCH (08:32)
[2017-09-28] MEDS: INSULIN ASPART 100 UNITS/ML 3 ML PEN SC SCH ×4 (08:36→21:45)
[2017-09-28] MEDS: FUROSEMIDE INJ 60 MG in SYRINGE 0 ML IV SCH ×2 (08:39→17:39)
[2017-09-28] MEDS: INSULIN GLARGINE SOLOSTAR 100 UNITS/ML 3 ML PEN SQ SCH ×2 (09:00→23:24)
--- NOTE | 2017-09-28 10:30 | Pulmonology Progress Note ---
Pulmonary Progress Note Date of Service Sep 28, 2017. Attending Dr. Rodriguez Subjective Feels somewhat improved. Reports dyspnea provoked with ambulating short distances throughout the hospital room. Denies pain. Appetite in-tact. Objective 77-yo female admitted to [facility] through the ER 09/23/17 with symptoms of cough, weakness, and dyspnea. Prior records were reviewed. PMHx includes: pulmonary nodules (9mm stable - 2010 ), h/o PE, atrial fibrillation, h/o GIB, anxiety, CKD, nocturnal O2/sleep apnea , pulmonary emphysema, grade I diastolic dysfunction, diabetic polyneuropathy, gastroparesis, CAD s/p PCI-LAD, HLD, GERD, HTN. Former tobacco x 38-years, quit 1995. H/o recent admission 07/2017. In the ER, CXR described mild pulmonary vascular chest congestion with trace left pleural effusion. + Influenza A PCR. Urine: + pansensitive klebsiella. VBG 09/23: pCO2: 47. Labs notable for hyponatremia, KARLEE, and anemia. She was seen by cardiology, nephrology, and pulmonary and treated with diureses, anticoagulation (in setting of sub-therapeutic INR), steroids, supplemental O2 via NC, and bronchodilators. Physical Exam: Constitutional: Morbidly obese elderly female sitting in chair at bedside, no acute distress Head: + facial symmetry, O2 via NC Eyes: Full EOMs, PERRLA, no conjunctiva injection Throat: trachea midline, no masses Respiratory: Non-labored respirations with short breaths between words. Breath sounds present all cole but diminished at bases. Coarse BS on the right. Scattered rales bilateral bases. No wheeze. Cardiovascular: Irregularly irregular, rate controlled. I/ systolic murmur appreciated. +[2] radial pulses. [<1s] capillary refill. Extremities/MSK: Moving symmetrically. ++ bilateral peripheral edema. Neurologic: Alert and Oriented x 3. Appropriate affect. Assessment & Plan 77-yo female admitted with acute on chronic cardiopulmonary respiratory failure , KARLEE/CKD, Influenza A (out of window of oseltamivir) and UTI - multifactorial. - Continue Q4-hour levalbuterol-ipratropium nebulized - Wean IV steroid to 40 BID - VQ scan (unclear if this is currently ordered- pending or to be done OP) - Will need CPAP outpatient will need to connect with her medical records technician to aid in facilitation Data Medications: Current Inpatient Medications Medications (Trade) Dose Ordered Sig/Rose Route Start Time Stop Time Status Last Admin Dose Admin Acetaminophen (Tylenol Tab) 650 mg Q4H PRN PO 09/23/17 13:15 10/23/17 13:14 Al Hydrox/Mg Hydrox/Simethicone (Maalox Max Susp) 15 ml Q4H PRN PO 09/23/17 13:15 10/23/17 13:14 Magnesium Hydroxide (Milk Of Magnesia Susp) 30 ml Q12H PRN PO 09/23/17 13:15 10/23/17 13:14 Ondansetron HCl (Zofran Inj) 4 mg Q6H PRN IV 09/23/17 13:15 10/23/17 13:14 Nitroglycerin (Nitrostat Tab) 0.4 mg UD PRN SL 09/23/17 13:15 10/23/17 13:14 Aspirin (Ecotrin Tab) 81 mg QAM PO 09/24/17 09:00 10/24/17 08:59 09/28/17 08:32 81 MG Polyethylene (Miralax Powder Packet) 17 gm DAILY PRN PO 09/23/17 13:15 10/23/17 13:14 Ferrous Sulfate (Feosol Tab) 325 mg DAILY PO 09/24/17 09:00 10/24/17 08:59 09/28/17 08:32 325 MG Glucose (Glucose Chew Tab) 1 tab UD PRN PO 09/23/17 13:30 10/23/17 13:29 Isosorbide Mononitrate (Imdur Ext Rel Tab) 30 mg DAILY PO 09/24/17 09:00 10/24/17 08:59 09/28/17 08:32 30 MG Losartan Potassium (coZAAR TAB) 100 mg DAILY PO 09/24/17 09:00 10/24/17 08:59 Future Hold 09/25/17 08:51 100 MG Warfarin Sodium (Coumadin Tab) 4 mg DAILY@1600 PO 09/23/17 17:00 10/23/17 16:59 09/27/17 16:58 4 MG Lovastatin (Mevacor Tab) 80 mg HS PO 09/23/17 21:00 10/23/17 20:59 09/27/17 20:28 80 MG Pantoprazole Sodium (Protonix Tab) 40 mg DAILY PO 09/24/17 09:00 10/24/17 08:59 09/28/17 08:32 40 MG Miscellaneous Information (Order Awaiting Action) 1 ea QS N/A 09/23/17 16:00 10/23/17 15:59 Glucose (Glucose 40% Gel) 15-30 GRAMS 15 GRAMS... UD PRN PO 09/23/17 13:30 10/23/17 13:29 Glucose (Glucose Chew Tab) 4-8 Tablets 4 Tabl... UD PRN PO 09/23/17 13:30 10/23/17 13:29 Dextrose (Dextrose 50% 50ML Syringe) 25-50ML OF 50% DW IV FOR... UD PRN IV 09/23/17 13:30 10/23/17 13:29 Glucagon (Glucagon Inj) 1 mg UD PRN SQ 09/23/17 13:30 10/23/17 13:29 Zolpidem Tartrate (Ambien Tab) 5 mg HS PRN PO 09/24/17 03:00 10/24/17 02:59 Diltiazem HCl (Cardizem Cd Cap) 120 mg BID PO 09/24/17 21:00 10/24/17 20:59 09/28/17 08:31 120 MG Calcitriol (Rocaltrol Cap) 0.5 mcg DAILY PO 09/25/17 09:00 10/25/17 08:59 09/28/17 08:32 0.5 MCG Potassium Chloride (Klor-Con Tab) 20 meq DAILY PO 09/25/17 09:00 10/25/17 08:59 09/28/17 08:32 20 MEQ Methylprednisolone Sodium Succinate 40 mg/Syringe 0.64 ml @ 1.5 mls/min Q8H IV 09/25/17 13:00 10/25/17 12:59 09/28/17 05:02 1.5 MLS/MIN Ceftriaxone Sodium 1 gm/ Dextrose 50 ml @ 100 mls/hr Q24H IV 09/25/17 16:30 09/30/17 16:29 09/27/17 16:57 100 MLS/HR Lactobacillus Acidophilus (Floranex Tab) 4 tab TIDM PO 09/26/17 11:30 10/26/17 11:29 09/28/17 08:31 4 TAB Ipratropium [place] (Atrovent 0.02% 0.5MG/2.5ML Neb) 0.5 mg Q4R INH 09/26/17 12:00 10/26/17 11:59 09/28/17 07:38 0.5 MG Levalbuterol (Xopenex 1.25MG/ 0.5ML Neb) 1.25 mg Q4R INH 09/26/17 12:00 10/26/17 11:59 09/28/17 07:38 1.25 MG Miscellaneous Information (Consult Glycemic Management Pharmacy) 1 ea UD PRN N/A 09/26/17 11:30 10/26/17 11:29 Guaifenesin (Mucinex Contr Rel Tab) 600 mg Q12 PO 09/27/17 21:00 10/27/17 20:59 09/28/17 08:32 600 MG Furosemide 60 mg/ Syringe 6 ml @ 4 mls/min BID17 IV 09/27/17 16:00 10/27/17 15:59 09/28/17 08:39 4 MLS/MIN Insulin Glargine (Lantus Solostar Pen) 34 units BID SQ 09/27/17 21:00 10/27/17 20:59 Future hold 09/27/17 20:31 34 UNITS Insulin Human Regular 250 units/ Sodium Chloride 252.5 ml @ 0 mls/hr Q24H IV 09/27/17 16:30 10/27/17 16:29 09/27/17 17:03 4.3 MLS/HR Insulin Aspart (novoLOG ASPART) CARB RATIO SET BY PHARMAC... [facility] 09/27/17 17:15 10/27/17 17:14 09/28/17 08:36 8 UNITS Vital Signs: Date Time Temp Pulse Resp B/P (MAP) Pulse Ox O2 Delivery O2 Flow Rate FiO2 09/28/17 07:49 36.8 80 18 156/47 (83) 100 09/28/17 07:38 78 20 99 Nasal Cannula 3.0 09/28/17 04:01 77 20 100 Nasal Cannula 3.0 09/28/17 04:00 Nasal Cannula 3.0 Oxymask 09/28/17 03:38 36.6 70 23 152/52 (85) 99 Nasal Cannula 3.0 09/28/17 00:00 Nasal Cannula 3.0 Oxymask 09/27/17 23:38 36.3 70 70 151/57 (88) 99 Nasal Cannula 3.0 09/27/17 23:30 68 20 99 Nasal Cannula 3.0 09/27/17 20:00 Nasal Cannula 3.0 Oxymask 09/27/17 19:35 66 20 99 Nasal Cannula 3.0 09/27/17 19:34 36.5 75 22 157/46 (83) 99 Nasal Cannula 3.0 09/27/17 16:32 36.6 75 22 168/61 (96) 98 Nasal Cannula 3.0 09/27/17 16:00 Nasal Cannula 3.0 Oxymask 09/27/17 15:31 68 20 98 Nasal Cannula 3.0 09/27/17 12:00 Nasal Cannula 3.0 Oxymask 09/27/17 11:45 36.6 57 22 150/67 (94) 95 09/27/17 11:02 80 20 99 Nasal Cannula 3.0 Laboratory Results: Last 24 Hours Test 09/27/17 14:57 09/27/17 16:05 09/27/17 16:56 09/27/17 18:14 Bedside Glucose 377 mg/dl 325 mg/dl 264 mg/dl Sodium Level 130 mmol/L Potassium Level 4.3 mmol/L Chloride Level 96 mmol/L Carbon Dioxide Level 21 mmol/L Anion Gap 13.0 mmol/L Blood Urea Nitrogen 74 mg/dl Creatinine 3.09 mg/dl Est Creatinine Clear Calc Drug Dose 17.9 ml/min Estimated GFR () 15.9 Estimated GFR (Non- 13.7 BUN/Creatinine Ratio 23.9 Random Glucose 318 mg/dl Calcium Level 9.2 mg/dl Beta-Hydroxybutyric Acid 1.63 mg/dL Test 09/27/17 19:21 09/27/17 20:13 09/27/17 21:22 09/27/17 22:20 Bedside Glucose 235 mg/dl 233 mg/dl 211 mg/dl Sodium Level 131 mmol/L Potassium Level 4.8 mmol/L Chloride Level 98 mmol/L Carbon Dioxide Level 21 mmol/L Anion Gap 12.0 mmol/L Blood Urea Nitrogen 73 mg/dl Creatinine 2.99 mg/dl Est Creatinine Clear Calc Drug Dose 18.5 ml/min Estimated GFR () 16.5 Estimated GFR (Non- 14.2 BUN/Creatinine Ratio 24.5 Random Glucose 203 mg/dl Calcium Level 9.4 mg/dl Test 09/27/17 23:14 09/28/17 01:09 09/28/17 03:12 09/28/17 04:10 Bedside Glucose 190 mg/dl 148 mg/dl 108 mg/dl Prothrombin Time 28.1 SECONDS Prothromb Time International Ratio 2.7 Activated Partial Thromboplast Time 36.4 SECONDS Partial Thromboplastin Ratio 1.4 Sodium Level 135 mmol/L Potassium Level 4.6 mmol/L Chloride Level 101 mmol/L Carbon Dioxide Level 24 mmol/L Anion Gap 10.0 mmol/L Blood Urea Nitrogen 75 mg/dl Creatinine 2.84 mg/dl Est Creatinine Clear Calc Drug Dose 19.5 ml/min Estimated GFR () 17.6 Estimated GFR (Non- 15.2 BUN/Creatinine Ratio 26.3 Random Glucose 96 mg/dl Calcium Level 9.0 mg/dl Test 09/28/17 04:53 09/28/17 05:56 09/28/17 06:43 09/28/17 07:45 Bedside Glucose 121 mg/dl 122 mg/dl 121 mg/dl 138 mg/dl
[2017-09-28 10:49] LABS: CALCIUM 9.1 mg/dl (8.5-10.1); CREATININE 2.71 mg/dl (0.60-1.20); POTASSIUM 4.3 mmol/L (3.5-5.1)
--- NOTE | 2017-09-28 10:50 | PROGRESS NOTE ---
DATE: 09/28/2017 FOLLOWUP VISIT SUBJECTIVE: The patient is a 77-year-old with ischemic heart disease, diastolic dysfunction and paroxysmal atrial fibrillation. She was admitted with heart failure and later found to have influenza. She was at first diuresed, but when her creatinine reached over 3, the diuretics were held. The patient continued to have symptoms of shortness of breath and what appeared to be volume overload. Nephrology does not feel that the elevation in creatinine is due to overdiuresis but may be due to acute tubular necrosis from the influenza. The patient was restarted on diuretics yesterday. She has not had a large diuresis. She is receiving fair amount of IV fluids due to medications and we should try to adjust those. Her creatinine today is 2.95. OBJECTIVE: GENERAL: She is alert and oriented, sitting in a chair. VITAL SIGNS: Blood pressure is 156/47, pulse is regular at 80. She is afebrile. HEENT: She is normocephalic. Pupils are equal and reactive to light. Extraocular muscles are intact bilaterally. NECK: The neck veins are flat. Carotids have good upstrokes bilaterally without bruits. Thyroid is nonpalpable. RESPIRATORY: Breath sounds equal bilaterally and clear to auscultation. CARDIOVASCULAR: Heart has a regular rhythm. Normal S1, S2. No S3, S4. No cardiac rubs or murmurs. GASTROINTESTINAL: Abdomen is soft, nontender, without organomegaly. EXTREMITIES: Free of edema, digit clubbing or cyanosis. NEUROLOGIC: Grossly intact. SKIN: Warm to touch. LYMPH NODES: Negative to palpation. LABORATORY DATA: Potassium is 4.6, creatinine is 2.84. Hemoglobin is 8.8. Telemetry indicates atrial fibrillation with controlled rate. IMPRESSION: 1. Influenza. 2. Diastolic heart failure with atrial fibrillation. 3. Chronic obstructive pulmonary disease. 4. Acute on chronic renal failure. RECOMMENDATIONS: As mentioned above, the patient is receiving diuretics but is also received a fair amount of IV fluids due to medications. We should try to make adjustments to reduce her overall intake.
--- NOTE | 2017-09-28 12:23 | Nephrology Progress Note ---
Nephrology Progress Note Date of Service: Sep 28, 2017. Subjective seen on rounds at 1030 approx. up in chair; c/o pedal edema, marked exertional dyspnea. currently on insulin gtt being weaned. Objective Date Time Temp Pulse Resp B/P (MAP) Pulse Ox O2 Delivery O2 Flow Rate FiO2 09/28/17 07:49 36.8 80 18 156/47 (83) 100 09/28/17 07:38 78 20 99 Nasal Cannula 3.0 09/28/17 04:01 77 20 100 Nasal Cannula 3.0 09/28/17 04:00 Nasal Cannula 3.0 Oxymask 09/28/17 03:38 36.6 70 23 152/52 (85) 99 Nasal Cannula 3.0 09/28/17 00:00 Nasal Cannula 3.0 Oxymask 09/27/17 23:38 36.3 70 70 151/57 (88) 99 Nasal Cannula 3.0 09/27/17 23:30 68 20 99 Nasal Cannula 3.0 09/27/17 20:00 Nasal Cannula 3.0 Oxymask 09/27/17 19:35 66 20 99 Nasal Cannula 3.0 09/27/17 19:34 36.5 75 22 157/46 (83) 99 Nasal Cannula 3.0 09/27/17 16:32 36.6 75 22 168/61 (96) 98 Nasal Cannula 3.0 09/27/17 16:00 Nasal Cannula 3.0 Oxymask 09/27/17 15:31 68 20 98 Nasal Cannula 3.0 09/27/17 12:00 Nasal Cannula 3.0 Oxymask 09/27/17 11:45 36.6 57 22 150/67 (94) 95 09/27/17 11:02 80 20 99 Nasal Cannula 3.0 Physical Exam: GENERAL: Elderly white female up in chair on 3L 02NC; still w/ slight dyspnea w / speaking longer sentence. Awake, alert, oriented x3. HEENT: Mucous membranes moist. NECK: Supple, obese and hard to appreciate jugular venous distention. CHEST: Bilateral decreased breath sounds with basal crackles; diminished L base CARDIOVASCULAR: RRR w/o mrr ABDOMEN: Soft and nontender, obese. no funes EXTREMITIES: 3+ pedal edema, 2+ BL ankles NEURO: cardenas, fluent speech Current Inpatient Medications Medications (Trade) Dose Ordered Sig/Rose Route Start Time Stop Time Status Last Admin Dose Admin Acetaminophen (Tylenol Tab) 650 mg Q4H PRN PO 09/23/17 13:15 10/23/17 13:14 Al Hydrox/Mg Hydrox/Simethicone (Maalox Max Susp) 15 ml Q4H PRN PO 09/23/17 13:15 10/23/17 13:14 Magnesium Hydroxide (Milk Of Magnesia Susp) 30 ml Q12H PRN PO 09/23/17 13:15 10/23/17 13:14 Ondansetron HCl (Zofran Inj) 4 mg Q6H PRN IV 09/23/17 13:15 10/23/17 13:14 Nitroglycerin (Nitrostat Tab) 0.4 mg UD PRN SL 09/23/17 13:15 10/23/17 13:14 Aspirin (Ecotrin Tab) 81 mg QAM PO 09/24/17 09:00 10/24/17 08:59 09/28/17 08:32 81 MG Polyethylene (Miralax Powder Packet) 17 gm DAILY PRN PO 09/23/17 13:15 10/23/17 13:14 Ferrous Sulfate (Feosol Tab) 325 mg DAILY PO 09/24/17 09:00 10/24/17 08:59 09/28/17 08:32 325 MG Glucose (Glucose Chew Tab) 1 tab UD PRN PO 09/23/17 13:30 10/23/17 13:29 Isosorbide Mononitrate (Imdur Ext Rel Tab) 30 mg DAILY PO 09/24/17 09:00 10/24/17 08:59 09/28/17 08:32 30 MG Losartan Potassium (coZAAR TAB) 100 mg DAILY PO 09/24/17 09:00 10/24/17 08:59 Future Hold 09/25/17 08:51 100 MG Warfarin Sodium (Coumadin Tab) 4 mg DAILY@1600 PO 09/23/17 17:00 10/23/17 16:59 09/27/17 16:58 4 MG Lovastatin (Mevacor Tab) 80 mg HS PO 09/23/17 21:00 10/23/17 20:59 09/27/17 20:28 80 MG Pantoprazole Sodium (Protonix Tab) 40 mg DAILY PO 09/24/17 09:00 10/24/17 08:59 09/28/17 08:32 40 MG Miscellaneous Information (Order Awaiting Action) 1 ea QS N/A 09/23/17 16:00 10/23/17 15:59 Glucose (Glucose 40% Gel) 15-30 GRAMS 15 GRAMS... UD PRN PO 09/23/17 13:30 10/23/17 13:29 Glucose (Glucose Chew Tab) 4-8 Tablets 4 Tabl... UD PRN PO 09/23/17 13:30 10/23/17 13:29 Dextrose (Dextrose 50% 50ML Syringe) 25-50ML OF 50% DW IV FOR... UD PRN IV 09/23/17 13:30 10/23/17 13:29 Glucagon (Glucagon Inj) 1 mg UD PRN SQ 09/23/17 13:30 10/23/17 13:29 Zolpidem Tartrate (Ambien Tab) 5 mg HS PRN PO 09/24/17 03:00 10/24/17 02:59 Diltiazem HCl (Cardizem Cd Cap) 120 mg BID PO 09/24/17 21:00 10/24/17 20:59 09/28/17 08:31 120 MG Calcitriol (Rocaltrol Cap) 0.5 mcg DAILY PO 09/25/17 09:00 10/25/17 08:59 09/28/17 08:32 0.5 MCG Potassium Chloride (Klor-Con Tab) 20 meq DAILY PO 09/25/17 09:00 10/25/17 08:59 09/28/17 08:32 20 MEQ Methylprednisolone Sodium Succinate 40 mg/Syringe 0.64 ml @ 1.5 mls/min Q8H IV 09/25/17 13:00 10/25/17 12:59 09/28/17 05:02 1.5 MLS/MIN Ceftriaxone Sodium 1 gm/ Dextrose 50 ml @ 100 mls/hr Q24H IV 09/25/17 16:30 09/30/17 16:29 09/27/17 16:57 100 MLS/HR Lactobacillus Acidophilus (Floranex Tab) 4 tab TIDM PO 09/26/17 11:30 10/26/17 11:29 09/28/17 08:31 4 TAB Ipratropium [place] (Atrovent 0.02% 0.5MG/2.5ML Neb) 0.5 mg Q4R INH 09/26/17 12:00 10/26/17 11:59 09/28/17 07:38 0.5 MG Levalbuterol (Xopenex 1.25MG/ 0.5ML Neb) 1.25 mg Q4R INH 09/26/17 12:00 10/26/17 11:59 09/28/17 07:38 1.25 MG Miscellaneous Information (Consult Glycemic Management Pharmacy) 1 ea UD PRN N/A 09/26/17 11:30 10/26/17 11:29 Guaifenesin (Mucinex Contr Rel Tab) 600 mg Q12 PO 09/27/17 21:00 10/27/17 20:59 09/28/17 08:32 600 MG Furosemide 60 mg/ Syringe 6 ml @ 4 mls/min BID17 IV 09/27/17 16:00 10/27/17 15:59 09/28/17 08:39 4 MLS/MIN Insulin Glargine (Lantus Solostar Pen) 34 units BID SQ 09/27/17 21:00 10/27/17 20:59 Future hold 09/27/17 20:31 34 UNITS Insulin Human Regular 250 units/ Sodium Chloride 252.5 ml @ 0 mls/hr Q24H IV 09/27/17 16:30 10/27/17 16:29 09/27/17 17:03 4.3 MLS/HR Insulin Aspart (novoLOG ASPART) CARB RATIO SET BY PHARMAC... [facility] 09/27/17 17:15 10/27/17 17:14 09/28/17 08:36 8 UNITS Last 24 Hours Test 09/27/17 14:57 09/27/17 16:05 09/27/17 16:56 09/27/17 18:14 Bedside Glucose 377 mg/dl 325 mg/dl 264 mg/dl Sodium Level 130 mmol/L Potassium Level 4.3 mmol/L Chloride Level 96 mmol/L Carbon Dioxide Level 21 mmol/L Anion Gap 13.0 mmol/L Blood Urea Nitrogen 74 mg/dl Creatinine 3.09 mg/dl Est Creatinine Clear Calc Drug Dose 17.9 ml/min Estimated GFR () 15.9 Estimated GFR (Non- 13.7 BUN/Creatinine Ratio 23.9 Random Glucose 318 mg/dl Calcium Level 9.2 mg/dl Beta-Hydroxybutyric Acid 1.63 mg/dL Test 09/27/17 19:21 09/27/17 20:13 09/27/17 21:22 09/27/17 22:20 Bedside Glucose 235 mg/dl 233 mg/dl 211 mg/dl Sodium Level 131 mmol/L Potassium Level 4.8 mmol/L Chloride Level 98 mmol/L Carbon Dioxide Level 21 mmol/L Anion Gap 12.0 mmol/L Blood Urea Nitrogen 73 mg/dl Creatinine 2.99 mg/dl Est Creatinine Clear Calc Drug Dose 18.5 ml/min Estimated GFR () 16.5 Estimated GFR (Non- 14.2 BUN/Creatinine Ratio 24.5 Random Glucose 203 mg/dl Calcium Level 9.4 mg/dl Test 09/27/17 23:14 09/28/17 01:09 09/28/17 03:12 09/28/17 04:10 Bedside Glucose 190 mg/dl 148 mg/dl 108 mg/dl Prothrombin Time 28.1 SECONDS Prothromb Time International Ratio 2.7 Activated Partial Thromboplast Time 36.4 SECONDS Partial Thromboplastin Ratio 1.4 Sodium Level 135 mmol/L Potassium Level 4.6 mmol/L Chloride Level 101 mmol/L Carbon Dioxide Level 24 mmol/L Anion Gap 10.0 mmol/L Blood Urea Nitrogen 75 mg/dl Creatinine 2.84 mg/dl Est Creatinine Clear Calc Drug Dose 19.5 ml/min Estimated GFR () 17.6 Estimated GFR (Non- 15.2 BUN/Creatinine Ratio 26.3 Random Glucose 96 mg/dl Calcium Level 9.0 mg/dl Test 09/28/17 04:53 09/28/17 05:56 09/28/17 06:43 09/28/17 07:45 Bedside Glucose 121 mg/dl 122 mg/dl 121 mg/dl 138 mg/dl Assessment & Plan 77-year-old female who presented 09/23 with shortness of breath, most likely from influenza, as well as atrial fibrillation with rapid ventricular response and diastolic congestive heart failure. We are following for acute renal failure on background chronic kidney disease III, baseline creatinine mid/high ones. Acute renal failure on CKD3 >>nonoliguric ischemic ATN, not surprising that in the context of influenza, congestive heart failure, atrial fibrillation with rapid ventricular response >> she has volume overload w/ cardiorenal syndrome -no further diagnostic work up needed -cannot rule out need for dialysis this admission -continue daily standing weights -limited po fluids to 1.5L; ordered < 2 gm daily Na diet -continue current lasix dose 60 mg iv bid, timed so as not to disrupt sleep; no funes needed currently -needs daily bmp pls -cont strict I/O Hypervolemic hyponatremia secondary to congestive heart failure and increasing fluid retention. -improving w/ IV Lasix; added fluid limit and low Na diet as well Appreciate consult; will follow w/ you.
--- NOTE | 2017-09-28 14:09 | DIAGNOSTIC IMAGING REPORT ---
NUCLEAR PULMONARY PERFUSION SCAN CLINICAL HISTORY: Dyspnea and hypoxia. COMPARISON STUDY: Chest x-ray dated 09/25/2017. Chest CT dated 09/02/2016. TECHNIQUE: Perfusion images of both lungs were obtained following the IV administration of 5.3 mCi of technetium 99m MAA. Images were acquired in the anterior, posterior, and oblique projections. A ventilatory scan could not be performed due to droplet precautions. FINDINGS: A chest x-ray performed 09/25/2017 shows cardiomegaly and emphysema. No perfusion defects are identified on the perfusion imaging. IMPRESSION: No perfusion defects are identified to suggest pulmonary embolus. Electronically signed by: Sumit Castillo M.D. 09/28/2017 2:07 PM Dictated Date/Time: 09/28/2017 2:05 PM
[2017-09-28] MEDS ORDERED: DC IV INSULIN INFUSION ONE (15:00)
--- NOTE | 2017-09-28 15:05 | Procedure Note ---
Procedure Note Procedure Date Sep 28, 2017. Procedure Description Procedure Name: Right radial arterial line Procedure time out: side/site verified, patient ID confirmed, correct procedure Consent obtained: written (obtain by Dr. Zavala) Time of procedure: 14:00 Performed by: physician skiver box toe (Sumit Pascal PA-C) Indications: diagnostic Contraindications: none Description: Ultrasound was used to identify appropriate vessel in the right renal artery. The patient was then prepped and draped in sterile fashion. Chlorhexidine was used at the site of the intended access as well as the entire hand and forearm around the insertion site. Ultrasound was then used to visualize the radial artery. Initial attempt failed as patient moved. Patient was reprepped with chlorhexidine and a fenestrated drape. Ultrasound again was used and the radial artery was able to visualized initial attempt with a 20-gauge angiocatheter failed. A new angiocatheter kit was opened and this time radial artery was accessed without difficulty. There was minimal bleeding at the site of the insertion. Ultrasound was used to visualize catheter. There is no evidence of hematoma at the insertion site. A good waveform was identified on the monitor. A stat lock was used to position the arterial line in place. A chlorhexidine disc was applied over the insertion site and a Tegaderm dressing was applied and the arterial line was secured Complications: none Patient tolerated procedure: well Post-procedure vital signs: reviewed and stable Comments: Dr. Zavala arrived in the room at the completion of the procedure and identify the waveform on the monitor as arterial.
--- NOTE | 2017-09-28 16:42 | Pharmacy Progress Note ---
Pharmacy Glycemic Short Note 2 Date of Service Sep 28, 2017. OUTPATIENT ANTIDIABETIC REGIMEN: * Lantus 25 units qam and 11 units qhs + SSI ASSESSMENT: * See progress note from 09/25/17 for more background info, in short: * Pt receiving SQ basal bolus insulin regimen for hyperglycemia secondary to baseline DM (outpatient regimen on hold), stress/infection, dextrose IVF, and high-dose IV steroids * Patient received 117 units of SQ insulin yesterday plus overlap of IV insulin infusion * Changes needed to insulin regimen: * AM Fasting BSG = 121 mg/dl - continue current basal insulin orders * Continue tight CF/CR since patient remains on high dose IV steroids (06/03 based on home dose of ~72 units with stress 3) * Will need to back off insulin as steroids are tapered and/or discontinued PLAN FOR INPATIENT GLYCEMIC CONTROL: * Transition off IV insulin infusion * Basal insulin * Lantus 18-34 units SQ BID * Bolus insulin * NovoLog per scale ACHS or Q6hrs while NPO * Goal Range: Low 110 mg/dL - High 140 mg/dL * Correction Factor: 10 mg/dL/unit * Nutritional / Prandial insulin per carb ratio of 1 unit per 4 grams CHO consumed Thank you.
[2017-09-28] MEDS: CEFTRIAXONE SOD INJ 1 GM in DEXTROSE 5% ADD-VANTAGE 50ML 50 ML IV SCH (17:39)
[2017-09-28] MEDS: WARFARIN SOD 2 MG TAB PO SCH (17:39)
[2017-09-28 17:52] LABS: CALCIUM 9.5 mg/dl (8.5-10.1); CREATININE 2.57 mg/dl (0.60-1.20); POTASSIUM 4.1 mmol/L (3.5-5.1)
--- NOTE | 2017-09-28 20:34 | Progress Note ---
Medicine Progress Note Date & Time of Visit: Sep 28, 2017 at 20:29. Subjective seen resting in bedside chair more comfortable than previous day states she feels about the same still has dyspnea with minimal exertion, dry cough no other symptoms able to speak in sentences with no effort, no accessory muscle use no other symptoms Objective Last 8 Hrs Date Time Temp Pulse Resp B/P (MAP) Pulse Ox O2 Delivery O2 Flow Rate FiO2 09/28/17 19:30 36.6 100 23 168/62 (97) 95 Room Air 09/28/17 19:07 86 20 98 Nasal Cannula 2.0 09/28/17 16:26 100 Nasal Cannula 3.0 09/28/17 16:00 36.6 94 18 166/55 (92) 98 09/28/17 15:14 84 20 99 Nasal Cannula 3.0 Physical Exam: General- oriented x 3, not in distress, speaks in sentences with no effort, no acc muscle use Eyes- anicteric Neck-no JVD Lungs- diminished breath sounds, occasional mild wheezes b/l Heart- (+) irregularly irregular rhythm; no murmur, normal rate Abdomen- normal bowel sounds, soft, nontender Extremities- no pretibial edema, no calf tenderness Neuro- alert, oriented x 3; no gross focal deficits Skin- warm & dry Laboratory Results: Last 24 Hours Test 09/27/17 21:22 09/27/17 22:20 09/27/17 23:14 09/28/17 01:09 Bedside Glucose 211 mg/dl 190 mg/dl 148 mg/dl Sodium Level 131 mmol/L Potassium Level 4.8 mmol/L Chloride Level 98 mmol/L Carbon Dioxide Level 21 mmol/L Anion Gap 12.0 mmol/L Blood Urea Nitrogen 73 mg/dl Creatinine 2.99 mg/dl Est Creatinine Clear Calc Drug Dose 18.5 ml/min Estimated GFR () 16.5 Estimated GFR (Non- 14.2 BUN/Creatinine Ratio 24.5 Random Glucose 203 mg/dl Calcium Level 9.4 mg/dl Test 09/28/17 03:12 09/28/17 04:10 09/28/17 04:53 09/28/17 05:56 Bedside Glucose 108 mg/dl 121 mg/dl 122 mg/dl Prothrombin Time 28.1 SECONDS Prothromb Time International Ratio 2.7 Activated Partial Thromboplast Time 36.4 SECONDS Partial Thromboplastin Ratio 1.4 Sodium Level 135 mmol/L Potassium Level 4.6 mmol/L Chloride Level 101 mmol/L Carbon Dioxide Level 24 mmol/L Anion Gap 10.0 mmol/L Blood Urea Nitrogen 75 mg/dl Creatinine 2.84 mg/dl Est Creatinine Clear Calc Drug Dose 19.5 ml/min Estimated GFR () 17.6 Estimated GFR (Non- 15.2 BUN/Creatinine Ratio 26.3 Random Glucose 96 mg/dl Calcium Level 9.0 mg/dl Test 09/28/17 06:43 09/28/17 07:45 09/28/17 09:45 09/28/17 10:20 Bedside Glucose 121 mg/dl 138 mg/dl 144 mg/dl Sodium Level 133 mmol/L Potassium Level 4.3 mmol/L Chloride Level 101 mmol/L Carbon Dioxide Level 22 mmol/L Anion Gap 10.0 mmol/L Blood Urea Nitrogen 73 mg/dl Creatinine 2.71 mg/dl Est Creatinine Clear Calc Drug Dose 20.1 ml/min Estimated GFR () 18.6 Estimated GFR (Non- 16.0 BUN/Creatinine Ratio 27.0 Random Glucose 132 mg/dl Calcium Level 9.1 mg/dl Test 09/28/17 11:44 09/28/17 16:44 09/28/17 17:06 Bedside Glucose 104 mg/dl 150 mg/dl Sodium Level 134 mmol/L Potassium Level 4.1 mmol/L Chloride Level 100 mmol/L Carbon Dioxide Level 21 mmol/L Anion Gap 13.0 mmol/L Blood Urea Nitrogen 72 mg/dl Creatinine 2.57 mg/dl Est Creatinine Clear Calc Drug Dose 21.2 ml/min Estimated GFR () 19.8 Estimated GFR (Non- 17.1 BUN/Creatinine Ratio 28.1 Random Glucose 162 mg/dl Calcium Level 9.5 mg/dl Assessment & Plan 77 year old female with history of COPD, Nocturnal Hypoxemia, A fib on Coumadin , CAD, DM, HTN presenting with shortness of breath. RAPID A FIB , ON CHRONIC COUMADIN - resolved - continue PO Cardizem INR 2.7 continue coumadin, changed to alternating 4mg and 2mg ACUTE CHF DIASTOLIC EXACERBATION ACUTE RENAL FAILURE ON CKD 4 - initiall felt to be pre-renal, Lasix held - crea increased to 3.3 from 1.7 - given NSS at 60cc/hr Cardio and Nephro consulted - (+) worsening dyspnea IV Lasix 60mg BID resumed crea actually improved to 2.7 continue IV Lasix - appreciate Nephro and Cardio consult ACUTE HYPOXIC RESPIRATORY FAILURE SECONDARY TO COPD EXACERBATION, INFLUENZA A, POSSIBLE ACUTE BRONCHITIS, CHF EXACERBATION - still on 3 L o2 - get sputum cultures - Tamiflu Nebs q4h Solumedrol 40mg q8h - Pulmonary consulted, appreciate the input DM 2 - BSGs elevated from steroids, stress - Pharm consulted was placed on Insulin drip now back to Lantus and ISS KLEBSIELLA UTI - Day 4 Ceftri Lactobacillus CAD - continue ASA DVT proph on coumadin Dispo pending PT/OT Consultants: Maribell Current Inpatient Medications: Current Inpatient Medications Medications (Trade) Dose Ordered Sig/Rose Route Start Time Stop Time Status Last Admin Dose Admin Acetaminophen (Tylenol Tab) 650 mg Q4H PRN PO 09/23/17 13:15 10/23/17 13:14 Al Hydrox/Mg Hydrox/Simethicone (Maalox Max Susp) 15 ml Q4H PRN PO 09/23/17 13:15 10/23/17 13:14 Magnesium Hydroxide (Milk Of Magnesia Susp) 30 ml Q12H PRN PO 09/23/17 13:15 10/23/17 13:14 Ondansetron HCl (Zofran Inj) 4 mg Q6H PRN IV 09/23/17 13:15 10/23/17 13:14 Nitroglycerin (Nitrostat Tab) 0.4 mg UD PRN SL 09/23/17 13:15 10/23/17 13:14 Aspirin (Ecotrin Tab) 81 mg QAM PO 09/24/17 09:00 10/24/17 08:59 09/28/17 08:32 81 MG Polyethylene (Miralax Powder Packet) 17 gm DAILY PRN PO 09/23/17 13:15 10/23/17 13:14 Ferrous Sulfate (Feosol Tab) 325 mg DAILY PO 09/24/17 09:00 10/24/17 08:59 09/28/17 08:32 325 MG Glucose (Glucose Chew Tab) 1 tab UD PRN PO 09/23/17 13:30 10/23/17 13:29 Isosorbide Mononitrate (Imdur Ext Rel Tab) 30 mg DAILY PO 09/24/17 09:00 10/24/17 08:59 09/28/17 08:32 30 MG Losartan Potassium (coZAAR TAB) 100 mg DAILY PO 09/24/17 09:00 10/24/17 08:59 Future Hold 09/25/17 08:51 100 MG Lovastatin (Mevacor Tab) 80 mg HS PO 09/23/17 21:00 10/23/17 20:59 09/27/17 20:28 80 MG Pantoprazole Sodium (Protonix Tab) 40 mg DAILY PO 09/24/17 09:00 10/24/17 08:59 09/28/17 08:32 40 MG Miscellaneous Information (Order Awaiting Action) 1 ea QS N/A 09/23/17 16:00 10/23/17 15:59 Glucose (Glucose 40% Gel) 15-30 GRAMS 15 GRAMS... UD PRN PO 09/23/17 13:30 10/23/17 13:29 Glucose (Glucose Chew Tab) 4-8 Tablets 4 Tabl... UD PRN PO 09/23/17 13:30 10/23/17 13:29 Dextrose (Dextrose 50% 50ML Syringe) 25-50ML OF 50% DW IV FOR... UD PRN IV 09/23/17 13:30 10/23/17 13:29 Glucagon (Glucagon Inj) 1 mg UD PRN SQ 09/23/17 13:30 10/23/17 13:29 Zolpidem Tartrate (Ambien Tab) 5 mg HS PRN PO 09/24/17 03:00 10/24/17 02:59 Diltiazem HCl (Cardizem Cd Cap) 120 mg BID PO 09/24/17 21:00 10/24/17 20:59 09/28/17 08:31 120 MG Calcitriol (Rocaltrol Cap) 0.5 mcg DAILY PO 09/25/17 09:00 10/25/17 08:59 09/28/17 08:32 0.5 MCG Potassium Chloride (Klor-Con Tab) 20 meq DAILY PO 09/25/17 09:00 10/25/17 08:59 09/28/17 08:32 20 MEQ Methylprednisolone Sodium Succinate 40 mg/Syringe 0.64 ml @ 1.5 mls/min Q8H IV 09/25/17 13:00 10/25/17 12:59 09/28/17 12:30 1.5 MLS/MIN Ceftriaxone Sodium 1 gm/ Dextrose 50 ml @ 100 mls/hr Q24H IV 09/25/17 16:30 09/30/17 16:29 09/28/17 17:39 100 MLS/HR Lactobacillus Acidophilus (Floranex Tab) 4 tab TIDM PO 09/26/17 11:30 10/26/17 11:29 09/28/17 16:45 4 TAB Ipratropium [place] (Atrovent 0.02% 0.5MG/2.5ML Neb) 0.5 mg Q4R INH 09/26/17 12:00 10/26/17 11:59 09/28/17 19:07 0.5 MG Levalbuterol (Xopenex 1.25MG/ 0.5ML Neb) 1.25 mg Q4R INH 09/26/17 12:00 10/26/17 11:59 09/28/17 19:07 1.25 MG Miscellaneous Information (Consult Glycemic Management Pharmacy) 1 ea UD PRN N/A 09/26/17 11:30 10/26/17 11:29 Guaifenesin (Mucinex Contr Rel Tab) 600 mg Q12 PO 09/27/17 21:00 10/27/17 20:59 09/28/17 08:32 600 MG Furosemide 60 mg/ Syringe 6 ml @ 4 mls/min BID17 IV 09/27/17 16:00 10/27/17 15:59 09/28/17 17:39 4 MLS/MIN Insulin Aspart (novoLOG ASPART) ACHS SC 09/28/17 11:00 10/28/17 10:59 09/28/17 17:47 5 UNITS Warfarin Sodium (Coumadin Tab) 4 mg SuTuTh@1600 PO 09/29/17 16:00 10/29/17 15:59 Warfarin Sodium (Coumadin Tab) 2 mg MoWeFrSa@1600 PO 09/28/17 16:00 10/28/17 15:59 09/28/17 17:39 2 MG Insulin Aspart (novoLOG ASPART) SLIDING SCALE 0000,0400 SC 09/29/17 00:00 09/29/17 04:01 Insulin Glargine (Lantus Solostar Pen) SEE PROTOCOL BID SQ 09/28/17 21:00 10/28/17 20:59
[2017-09-28] MEDS: LOVASTATIN 20 MG TAB PO SCH (21:37)
[2017-09-28 23:16] LABS: CALCIUM 9.3 mg/dl (8.5-10.1); CREATININE 2.7 mg/dl (0.60-1.20); POTASSIUM 3.8 mmol/L (3.5-5.1)
[2017-09-29] VITALS (16 sets, daily range): BP systolic 123–183; BP diastolic 48–91; PULSE 85–103; TEMP 36.4–36.6; O2SAT 95–100; BMI 42.7
[2017-09-29] MEDS: INSULIN ASPART 100 UNITS/ML 3 ML PEN SC SCH ×6 (00:31→21:00)
[2017-09-29] MEDS: IPRATROPIUM BROMIDE NEB SOLN 0.02% 2.5 ML VIAL INH SCH ×8 (03:27→23:32)
[2017-09-29] MEDS: LEVALBUTEROL 1.25MG/0.5ML NEB INH SCH ×8 (03:27→23:32)
[2017-09-29] MEDS: METHYLPREDNISOLONE IV 40 MG in SYRINGE 0 ML IV SCH ×2 (04:27→21:09)
[2017-09-29 04:54] LABS: HEMOGLOBIN 9.3 g/dL (12.0-16.0); MEAN CELL VOLUME 91.8 fL (80-100); MEAN CORPUSCULAR HEMOGLOBIN 30.5 pg (25-34); RED CELL DISTRIBUTION WIDTH CV 13.6 % (11.5-14.5); RED CELL DISTRIBUTION WIDTH SD 45.6 fL (36.4-46.3); WHITE BLOOD COUNT 3.61 K/uL (4.8-10.8)
[2017-09-29 05:01] LABS: MEAN CORPUSCULAR HGB CONC 33.2 g/dl (32-36); MEAN PLATELET VOLUME 10.9 fL (7.4-10.4); PLATELET COUNT 94 K/uL (130-400)
--- NOTE | 2017-09-29 09:19 | Nephrology Progress Note ---
Nephrology Progress Note Date of Service: Sep 29, 2017. Subjective up in chair; ongoing anxiety / sob > notes no difference in sx. wearing slippers today that could not have worn yesterday. insulin gtt off Objective Date Time Temp Pulse Resp B/P (MAP) Pulse Ox O2 Delivery O2 Flow Rate FiO2 09/29/17 07:06 36.5 92 24 123/91 (102) 95 Nasal Cannula 3.0 09/29/17 04:15 36.6 95 23 142/48 (79) 95 Nasal Cannula 3.0 09/29/17 04:00 Nasal Cannula 3.0 Oxymask 09/29/17 03:26 95 20 95 Nasal Cannula 3.0 09/29/17 00:00 Nasal Cannula 3.0 Oxymask 09/28/17 23:13 36.6 92 17 171/63 (99) 98 Room Air 09/28/17 23:11 93 20 98 Room Air 09/28/17 20:00 Nasal Cannula 3.0 Oxymask 09/28/17 19:30 36.6 100 23 168/62 (97) 95 Room Air 09/28/17 19:07 86 20 98 Nasal Cannula 2.0 09/28/17 16:26 100 Nasal Cannula 3.0 09/28/17 16:00 36.6 94 18 166/55 (92) 98 09/28/17 15:14 84 20 99 Nasal Cannula 3.0 09/28/17 12:03 100 Nasal Cannula 3.0 09/28/17 11:36 76 20 97 Nasal Cannula 3.0 09/28/17 11:18 36.4 93 22 176/55 (95) 100 09/28/17 08:01 100 Nasal Cannula 3.0 Physical Exam: GENERAL: Elderly white female up in chair on 3L 02NC; minimal dyspnea w/ speech. Awake, alert, oriented x3. HEENT: Mucous membranes moist. NECK: Supple, obese and hard to appreciate jugular venous distention. CHEST: Bilateral decreased breath sounds mariela bases CARDIOVASCULAR: irregularly irregular w/o mr ABDOMEN: Soft and nontender, obese. no funes EXTREMITIES: 1-2+ pedal edema, trace edema BL ankles NEURO: cardenas, fluent speech, anxious Current Inpatient Medications Medications (Trade) Dose Ordered Sig/Rose Route Start Time Stop Time Status Last Admin Dose Admin Acetaminophen (Tylenol Tab) 650 mg Q4H PRN PO 09/23/17 13:15 10/23/17 13:14 Al Hydrox/Mg Hydrox/Simethicone (Maalox Max Susp) 15 ml Q4H PRN PO 09/23/17 13:15 10/23/17 13:14 Magnesium Hydroxide (Milk Of Magnesia Susp) 30 ml Q12H PRN PO 09/23/17 13:15 10/23/17 13:14 Ondansetron HCl (Zofran Inj) 4 mg Q6H PRN IV 09/23/17 13:15 10/23/17 13:14 Nitroglycerin (Nitrostat Tab) 0.4 mg UD PRN SL 09/23/17 13:15 10/23/17 13:14 Aspirin (Ecotrin Tab) 81 mg QAM PO 09/24/17 09:00 10/24/17 08:59 09/28/17 08:32 81 MG Polyethylene (Miralax Powder Packet) 17 gm DAILY PRN PO 09/23/17 13:15 10/23/17 13:14 Ferrous Sulfate (Feosol Tab) 325 mg DAILY PO 09/24/17 09:00 10/24/17 08:59 09/28/17 08:32 325 MG Glucose (Glucose Chew Tab) 1 tab UD PRN PO 09/23/17 13:30 10/23/17 13:29 Isosorbide Mononitrate (Imdur Ext Rel Tab) 30 mg DAILY PO 09/24/17 09:00 10/24/17 08:59 09/28/17 08:32 30 MG Losartan Potassium (coZAAR TAB) 100 mg DAILY PO 09/24/17 09:00 10/24/17 08:59 Future Hold 09/25/17 08:51 100 MG Lovastatin (Mevacor Tab) 80 mg HS PO 09/23/17 21:00 10/23/17 20:59 09/28/17 21:37 80 MG Pantoprazole Sodium (Protonix Tab) 40 mg DAILY PO 09/24/17 09:00 10/24/17 08:59 09/28/17 08:32 40 MG Miscellaneous Information (Order Awaiting Action) 1 ea QS N/A 09/23/17 16:00 10/23/17 15:59 Glucose (Glucose 40% Gel) 15-30 GRAMS 15 GRAMS... UD PRN PO 09/23/17 13:30 10/23/17 13:29 Glucose (Glucose Chew Tab) 4-8 Tablets 4 Tabl... UD PRN PO 09/23/17 13:30 10/23/17 13:29 Dextrose (Dextrose 50% 50ML Syringe) 25-50ML OF 50% DW IV FOR... UD PRN IV 09/23/17 13:30 10/23/17 13:29 Glucagon (Glucagon Inj) 1 mg UD PRN SQ 09/23/17 13:30 10/23/17 13:29 Zolpidem Tartrate (Ambien Tab) 5 mg HS PRN PO 09/24/17 03:00 10/24/17 02:59 Diltiazem HCl (Cardizem Cd Cap) 120 mg BID PO 09/24/17 21:00 10/24/17 20:59 09/28/17 21:37 120 MG Calcitriol (Rocaltrol Cap) 0.5 mcg DAILY PO 09/25/17 09:00 10/25/17 08:59 09/28/17 08:32 0.5 MCG Potassium Chloride (Klor-Con Tab) 20 meq DAILY PO 09/25/17 09:00 10/25/17 08:59 09/28/17 08:32 20 MEQ Methylprednisolone Sodium Succinate 40 mg/Syringe 0.64 ml @ 1.5 mls/min Q8H IV 09/25/17 13:00 10/25/17 12:59 09/29/17 04:27 1.5 MLS/MIN Ceftriaxone Sodium 1 gm/ Dextrose 50 ml @ 100 mls/hr Q24H IV 09/25/17 16:30 09/30/17 16:29 09/28/17 17:39 100 MLS/HR Lactobacillus Acidophilus (Floranex Tab) 4 tab TIDM PO 09/26/17 11:30 10/26/17 11:29 09/28/17 16:45 4 TAB Ipratropium [place] (Atrovent 0.02% 0.5MG/2.5ML Neb) 0.5 mg Q4R INH 09/26/17 12:00 10/26/17 11:59 09/29/17 07:15 0.5 MG Levalbuterol (Xopenex 1.25MG/ 0.5ML Neb) 1.25 mg Q4R INH 09/26/17 12:00 10/26/17 11:59 09/29/17 07:15 1.25 MG Miscellaneous Information (Consult Glycemic Management Pharmacy) 1 ea UD PRN N/A 09/26/17 11:30 10/26/17 11:29 Guaifenesin (Mucinex Contr Rel Tab) 600 mg Q12 PO 09/27/17 21:00 10/27/17 20:59 09/28/17 21:36 600 MG Furosemide 60 mg/ Syringe 6 ml @ 4 mls/min BID17 IV 09/27/17 16:00 10/27/17 15:59 09/28/17 17:39 4 MLS/MIN Insulin Aspart (novoLOG ASPART) ACHS SC 09/28/17 11:00 10/28/17 10:59 09/28/17 21:45 12 UNITS Warfarin Sodium (Coumadin Tab) 4 mg SuTuTh@1600 PO 09/29/17 16:00 10/29/17 15:59 Warfarin Sodium (Coumadin Tab) 2 mg MoWeFrSa@1600 PO 09/28/17 16:00 10/28/17 15:59 09/28/17 17:39 2 MG Insulin Glargine (Lantus Solostar Pen) SEE PROTOCOL BID SQ 09/28/17 21:00 10/28/17 20:59 09/28/17 23:24 34 UNITS Last 24 Hours Test 09/28/17 09:45 09/28/17 10:20 09/28/17 11:44 09/28/17 16:44 Bedside Glucose 144 mg/dl 104 mg/dl 150 mg/dl Sodium Level 133 mmol/L Potassium Level 4.3 mmol/L Chloride Level 101 mmol/L Carbon Dioxide Level 22 mmol/L Anion Gap 10.0 mmol/L Blood Urea Nitrogen 73 mg/dl Creatinine 2.71 mg/dl Est Creatinine Clear Calc Drug Dose 20.1 ml/min Estimated GFR () 18.6 Estimated GFR (Non- 16.0 BUN/Creatinine Ratio 27.0 Random Glucose 132 mg/dl Calcium Level 9.1 mg/dl Test 09/28/17 17:06 09/28/17 21:09 09/28/17 22:20 1/30/18 00:28 Sodium Level 134 mmol/L 133 mmol/L Potassium Level 4.1 mmol/L 3.8 mmol/L Chloride Level 100 mmol/L 98 mmol/L Carbon Dioxide Level 21 mmol/L 22 mmol/L Anion Gap 13.0 mmol/L 13.0 mmol/L Blood Urea Nitrogen 72 mg/dl 71 mg/dl Creatinine 2.57 mg/dl 2.70 mg/dl Est Creatinine Clear Calc Drug Dose 21.2 ml/min 20.2 ml/min Estimated GFR () 19.8 18.7 Estimated GFR (Non- 17.1 16.1 BUN/Creatinine Ratio 28.1 26.4 Random Glucose 162 mg/dl 257 mg/dl Calcium Level 9.5 mg/dl 9.3 mg/dl Bedside Glucose 254 mg/dl 198 mg/dl Test 09/29/17 04:18 09/29/17 04:30 Bedside Glucose 168 mg/dl White Blood Count 3.61 K/uL Red Blood Count 3.05 M/uL Hemoglobin 9.3 g/dL Hematocrit 28.0 % Mean Corpuscular Volume 91.8 fL Mean Corpuscular Hemoglobin 30.5 pg Mean Corpuscular Hemoglobin Concent 33.2 g/dl RDW Standard Deviation 45.6 fL RDW Coefficient of Variation 13.6 % Platelet Count 94 K/uL Mean Platelet Volume 10.9 fL Assessment & Plan 77-year-old female who presented 09/23 with shortness of breath, most likely from influenza, as well as atrial fibrillation with rapid ventricular response and diastolic congestive heart failure. We are following for acute renal failure on background chronic kidney disease III, baseline creatinine mid/high ones. Acute renal failure on CKD3 >>nonoliguric ischemic ATN, not surprising that in the context of influenza, congestive heart failure, atrial fibrillation with rapid ventricular response >> she has volume overload w/ cardiorenal syndrome -no further diagnostic work up needed -cannot rule out need for dialysis this admission -continue daily standing weights -limited po fluids to 1.5L; ordered < 2 gm daily Na diet -continue current lasix dose 60 mg iv bid, timed so as not to disrupt sleep; no funes needed currently -needs daily bmp pls >> ordered recheck for noon today > if creat worse, may need to lower lasix dose; creat has been improving however -cont strict I/O -ordered CXR for this afternoon -note on on K suppls currently Hypervolemic hyponatremia secondary to congestive heart failure and fluid retention. -stable w/ IV Lasix; cont fluid limit and low Na diet as well Appreciate consult; will follow w/ you.
[2017-09-29] MEDS: LACTOBACILLUS ACIDOPHILUS (FLORANEX) TAB PO SCH ×3 (10:05→16:47)
[2017-09-29] MEDS: DILTIAZEM HCL 120 MG CAPCR PO SCH ×2 (10:07→22:08)
[2017-09-29] MEDS: ASPIRIN 81 MG ECTAB PO SCH (10:07)
[2017-09-29] MEDS: FUROSEMIDE INJ 60 MG in SYRINGE 0 ML IV SCH ×2 (10:07→16:48)
[2017-09-29] MEDS: FERROUS SULFATE 325 MG TAB PO SCH (10:08)
[2017-09-29] MEDS: ISOSORBIDE MONONITRATE 30 MG TABCR PO SCH (10:09)
[2017-09-29] MEDS: CALCITRIOL 0.25 MCG CAP PO SCH (10:10)
[2017-09-29] MEDS: GUAIFENESIN 600 MG TABCR PO SCH ×2 (10:10→21:12)
[2017-09-29] MEDS: PANTOprazole SOD 40 MG TAB PO SCH (10:10)
[2017-09-29] MEDS: POTASSIUM CHLORIDE 20 MEQ TABCR PO SCH (10:10)
[2017-09-29] MEDS: INSULIN GLARGINE SOLOSTAR 100 UNITS/ML 3 ML PEN SQ SCH ×2 (10:11→21:15)
--- NOTE | 2017-09-29 10:41 | Progress Note ---
Medicine Progress Note Date & Time of Visit: Sep 29, 2017 at 10:07. Subjective Pt was seen and examined Sitting in chair with no distress Pt said that she feels slightly better She said that she continue to have SOB with exertion She said that her lower extremities swollen improved Denies any chest pain, palpitation, dizziness and fever Objective Last 8 Hrs Date Time Temp Pulse Resp B/P (MAP) Pulse Ox O2 Delivery O2 Flow Rate FiO2 09/29/17 08:41 36.4 92 22 183/71 (108) 98 Nasal Cannula 3.0 09/29/17 08:21 100 Nasal Cannula 3.0 09/29/17 07:15 95 20 98 Nasal Cannula 3.0 09/29/17 07:06 36.5 92 24 123/91 (102) 95 Nasal Cannula 3.0 09/29/17 04:15 36.6 95 23 142/48 (79) 95 Nasal Cannula 3.0 09/29/17 04:00 Nasal Cannula 3.0 Oxymask 09/29/17 03:26 95 20 95 Nasal Cannula 3.0 Physical Exam: General- No acute distress Head- atraumatic Eyes- PERRL, EOMI ENT- oropharynx clear Neck- supple, no JVD Lungs- No wheezing Heart- irregular rhythm; no murmur Abdomen- normal bowel sounds, soft Extremities- no calf tenderness Neuro- alert, oriented x 3; PERRL Skin- warm & dry Laboratory Results: Last 24 Hours Test 09/28/17 10:20 09/28/17 11:44 09/28/17 16:44 09/28/17 17:06 Sodium Level 133 mmol/L 134 mmol/L Potassium Level 4.3 mmol/L 4.1 mmol/L Chloride Level 101 mmol/L 100 mmol/L Carbon Dioxide Level 22 mmol/L 21 mmol/L Anion Gap 10.0 mmol/L 13.0 mmol/L Blood Urea Nitrogen 73 mg/dl 72 mg/dl Creatinine 2.71 mg/dl 2.57 mg/dl Est Creatinine Clear Calc Drug Dose 20.1 ml/min 21.2 ml/min Estimated GFR () 18.6 19.8 Estimated GFR (Non- 16.0 17.1 BUN/Creatinine Ratio 27.0 28.1 Random Glucose 132 mg/dl 162 mg/dl Calcium Level 9.1 mg/dl 9.5 mg/dl Bedside Glucose 104 mg/dl 150 mg/dl Test 09/28/17 21:09 09/28/17 22:20 09/29/17 00:28 09/29/17 04:18 Bedside Glucose 254 mg/dl 198 mg/dl 168 mg/dl Sodium Level 133 mmol/L Potassium Level 3.8 mmol/L Chloride Level 98 mmol/L Carbon Dioxide Level 22 mmol/L Anion Gap 13.0 mmol/L Blood Urea Nitrogen 71 mg/dl Creatinine 2.70 mg/dl Est Creatinine Clear Calc Drug Dose 20.2 ml/min Estimated GFR () 18.7 Estimated GFR (Non- 16.1 BUN/Creatinine Ratio 26.4 Random Glucose 257 mg/dl Calcium Level 9.3 mg/dl Test 09/29/17 04:30 09/29/17 06:54 White Blood Count 3.61 K/uL Red Blood Count 3.05 M/uL Hemoglobin 9.3 g/dL Hematocrit 28.0 % Mean Corpuscular Volume 91.8 fL Mean Corpuscular Hemoglobin 30.5 pg Mean Corpuscular Hemoglobin Concent 33.2 g/dl RDW Standard Deviation 45.6 fL RDW Coefficient of Variation 13.6 % Platelet Count 94 K/uL Mean Platelet Volume 10.9 fL Bedside Glucose 179 mg/dl Assessment & Plan 77 year old female with history of COPD, Nocturnal Hypoxemia, A fib on Coumadin , CAD, DM, HTN presenting with dyspnea ACUTE HYPOXIC RESPIRATORY FAILURE INFLUENZA A vs ACUTE DIASTOLIC CHF EXACERBATION vs COPD EXACERBATION Positive for influenza A Continue Tamiflu V/Q scan showed no perfusion defects to suggest pulmonary embolus. CXR showed mild central pulmonary vascular congestion without overt edema. On Solumedrol, will taper steroid Continue lasix 60mg BID Continue Neb treatment Will need CPAP as an outpatient as per pulmonary team Cardiology and pulmonary on board A FIB Rate controlled Continue PO Cardizem INR 2.7 yesterday Continue Coumadin Monitor INR ACUTE RENAL FAILURE ON CKD 4 Creatine on admission 1.63 Received IVF Creatine was 2.7 yesterday Continue monitor BMP Nephrology on board DM type 2 Most recent Hba1c 7.4 Continue lantus Pharmacy on board for glycemic control UTI Urine cx positive for Klebsiella pna On rocephin day 5 CAD continue ASA DVT Px on coumadin CODE STATUS FULL CODE Consultants: Maribell Current Inpatient Medications: Current Inpatient Medications Medications (Trade) Dose Ordered Sig/Rose Route Start Time Stop Time Status Last Admin Dose Admin Acetaminophen (Tylenol Tab) 650 mg Q4H PRN PO 09/23/17 13:15 10/23/17 13:14 Al Hydrox/Mg Hydrox/Simethicone (Maalox Max Susp) 15 ml Q4H PRN PO 09/23/17 13:15 10/23/17 13:14 Magnesium Hydroxide (Milk Of Magnesia Susp) 30 ml Q12H PRN PO 09/23/17 13:15 10/23/17 13:14 Ondansetron HCl (Zofran Inj) 4 mg Q6H PRN IV 09/23/17 13:15 10/23/17 13:14 Nitroglycerin (Nitrostat Tab) 0.4 mg UD PRN SL 09/23/17 13:15 10/23/17 13:14 Aspirin (Ecotrin Tab) 81 mg QAM PO 09/24/17 09:00 10/24/17 08:59 09/28/17 08:32 81 MG Polyethylene (Miralax Powder Packet) 17 gm DAILY PRN PO 09/23/17 13:15 10/23/17 13:14 Ferrous Sulfate (Feosol Tab) 325 mg DAILY PO 09/24/17 09:00 10/24/17 08:59 09/28/17 08:32 325 MG Glucose (Glucose Chew Tab) 1 tab UD PRN PO 09/23/17 13:30 10/23/17 13:29 Isosorbide Mononitrate (Imdur Ext Rel Tab) 30 mg DAILY PO 09/24/17 09:00 10/24/17 08:59 09/28/17 08:32 30 MG Losartan Potassium (coZAAR TAB) 100 mg DAILY PO 09/24/17 09:00 10/24/17 08:59 Future Hold 09/25/17 08:51 100 MG Lovastatin (Mevacor Tab) 80 mg HS PO 09/23/17 21:00 10/23/17 20:59 09/28/17 21:37 80 MG Pantoprazole Sodium (Protonix Tab) 40 mg DAILY PO 09/24/17 09:00 10/24/17 08:59 09/28/17 08:32 40 MG Miscellaneous Information (Order Awaiting Action) 1 ea QS N/A 09/23/17 16:00 10/23/17 15:59 Glucose (Glucose 40% Gel) 15-30 GRAMS 15 GRAMS... UD PRN PO 09/23/17 13:30 10/23/17 13:29 Glucose (Glucose Chew Tab) 4-8 Tablets 4 Tabl... UD PRN PO 09/23/17 13:30 10/23/17 13:29 Dextrose (Dextrose 50% 50ML Syringe) 25-50ML OF 50% DW IV FOR... UD PRN IV 09/23/17 13:30 10/23/17 13:29 Glucagon (Glucagon Inj) 1 mg UD PRN SQ 09/23/17 13:30 10/23/17 13:29 Zolpidem Tartrate (Ambien Tab) 5 mg HS PRN PO 09/24/17 03:00 10/24/17 02:59 Diltiazem HCl (Cardizem Cd Cap) 120 mg BID PO 09/24/17 21:00 10/24/17 20:59 09/28/17 21:37 120 MG Calcitriol (Rocaltrol Cap) 0.5 mcg DAILY PO 09/25/17 09:00 10/25/17 08:59 09/28/17 08:32 0.5 MCG Potassium Chloride (Klor-Con Tab) 20 meq DAILY PO 09/25/17 09:00 10/25/17 08:59 09/28/17 08:32 20 MEQ Methylprednisolone Sodium Succinate 40 mg/Syringe 0.64 ml @ 1.5 mls/min Q8H IV 09/25/17 13:00 10/25/17 12:59 09/29/17 04:27 1.5 MLS/MIN Ceftriaxone Sodium 1 gm/ Dextrose 50 ml @ 100 mls/hr Q24H IV 09/25/17 16:30 09/30/17 16:29 09/28/17 17:39 100 MLS/HR Lactobacillus Acidophilus (Floranex Tab) 4 tab TIDM PO 09/26/17 11:30 10/26/17 11:29 09/28/17 16:45 4 TAB Ipratropium [place] (Atrovent 0.02% 0.5MG/2.5ML Neb) 0.5 mg Q4R INH 09/26/17 12:00 10/26/17 11:59 09/29/17 07:15 0.5 MG Levalbuterol (Xopenex 1.25MG/ 0.5ML Neb) 1.25 mg Q4R INH 09/26/17 12:00 10/26/17 11:59 09/29/17 07:15 1.25 MG Miscellaneous Information (Consult Glycemic Management Pharmacy) 1 ea UD PRN N/A 09/26/17 11:30 10/26/17 11:29 Guaifenesin (Mucinex Contr Rel Tab) 600 mg Q12 PO 09/27/17 21:00 10/27/17 20:59 09/28/17 21:36 600 MG Furosemide 60 mg/ Syringe 6 ml @ 4 mls/min BID17 IV 09/27/17 16:00 10/27/17 15:59 09/28/17 17:39 4 MLS/MIN Insulin Aspart (novoLOG ASPART) ACHS SC 09/28/17 11:00 10/28/17 10:59 09/28/17 21:45 12 UNITS Warfarin Sodium (Coumadin Tab) 4 mg SuTuTh@1600 PO 09/29/17 16:00 10/29/17 15:59 Warfarin Sodium (Coumadin Tab) 2 mg MoWeFrSa@1600 PO 09/28/17 16:00 10/28/17 15:59 09/28/17 17:39 2 MG Insulin Glargine (Lantus Solostar Pen) SEE PROTOCOL BID SQ 09/28/17 21:00 10/28/17 20:59 09/28/17 23:24 34 UNITS
--- NOTE | 2017-09-29 11:18 | Cardiology Follow-Up ---
Cardiology Follow-Up Date of Service Sep 29, 2017. Cardiology Follow-Up FOLLOWUP VISIT SUBJECTIVE: The patient is a 77-year-old with ischemic heart disease, diastolic dysfunction and paroxysmal atrial fibrillation. She was admitted with heart failure and later found to have influenza. She has finally started to diurese and is now in negative numbers as far as volume is concerned. She still has baseline shortness of breath with activities such as transferring to the commode. Her creatinine has improved again. Objective: Date Time Temp Pulse Resp B/P (MAP) Pulse Ox O2 Delivery O2 Flow Rate FiO2 09/29/17 10:35 Nasal Cannula 3.0 09/29/17 08:41 36.4 92 22 183/71 (108) 98 Nasal Cannula 3.0 09/29/17 08:21 100 Nasal Cannula 3.0 09/29/17 07:15 95 20 98 Nasal Cannula 3.0 09/29/17 07:06 36.5 92 24 123/91 (102) 95 Nasal Cannula 3.0 09/29/17 04:15 36.6 95 23 142/48 (79) 95 Nasal Cannula 3.0 09/29/17 04:00 Nasal Cannula 3.0 Oxymask 09/29/17 03:26 95 20 95 Nasal Cannula 3.0 09/29/17 00:00 Nasal Cannula 3.0 Oxymask 09/28/17 23:13 36.6 92 17 171/63 (99) 98 Room Air 09/28/17 23:11 93 20 98 Room Air 09/28/17 20:00 Nasal Cannula 3.0 Oxymask 09/28/17 19:30 36.6 100 23 168/62 (97) 95 Room Air 09/28/17 19:07 86 20 98 Nasal Cannula 2.0 09/28/17 16:26 100 Nasal Cannula 3.0 09/28/17 16:00 36.6 94 18 166/55 (92) 98 09/28/17 15:14 84 20 99 Nasal Cannula 3.0 09/28/17 12:03 100 Nasal Cannula 3.0 09/28/17 11:36 76 20 97 Nasal Cannula 3.0 09/28/17 11:18 36.4 93 22 176/55 (95) 100 She is alert and oriented sitting comfortably in a chair HEENT: Pupils are equal and reactive to light extra muscles are intact bilaterally mucous membranes are moist Neck: The neck veins are flat Cardiovascular: Heart has a regular rhythm there are no cardiac rubs or murmurs Lungs: Clear to auscultation bilaterally Abdomen: Soft nontender without again or megaly Extremities: Edema around the feet and ankles Neuro: Grossly intact Skin: Warm to touch lymph nodes: Nonpalpable Last 24 Hours Test 09/28/17 11:44 09/28/17 16:44 09/28/17 17:06 09/28/17 21:09 Bedside Glucose 104 mg/dl 150 mg/dl 254 mg/dl Sodium Level 134 mmol/L Potassium Level 4.1 mmol/L Chloride Level 100 mmol/L Carbon Dioxide Level 21 mmol/L Anion Gap 13.0 mmol/L Blood Urea Nitrogen 72 mg/dl Creatinine 2.57 mg/dl Est Creatinine Clear Calc Drug Dose 21.2 ml/min Estimated GFR () 19.8 Estimated GFR (Non- 17.1 BUN/Creatinine Ratio 28.1 Random Glucose 162 mg/dl Calcium Level 9.5 mg/dl Test 09/28/17 22:20 09/29/17 00:28 09/29/17 04:18 09/29/17 04:30 Sodium Level 133 mmol/L Potassium Level 3.8 mmol/L Chloride Level 98 mmol/L Carbon Dioxide Level 22 mmol/L Anion Gap 13.0 mmol/L Blood Urea Nitrogen 71 mg/dl Creatinine 2.70 mg/dl Est Creatinine Clear Calc Drug Dose 20.2 ml/min Estimated GFR () 18.7 Estimated GFR (Non- 16.1 BUN/Creatinine Ratio 26.4 Random Glucose 257 mg/dl Calcium Level 9.3 mg/dl Bedside Glucose 198 mg/dl 168 mg/dl White Blood Count 3.61 K/uL Red Blood Count 3.05 M/uL Hemoglobin 9.3 g/dL Hematocrit 28.0 % Mean Corpuscular Volume 91.8 fL Mean Corpuscular Hemoglobin 30.5 pg Mean Corpuscular Hemoglobin Concent 33.2 g/dl RDW Standard Deviation 45.6 fL RDW Coefficient of Variation 13.6 % Platelet Count 94 K/uL Mean Platelet Volume 10.9 fL Test 09/29/17 06:54 09/29/17 10:53 Bedside Glucose 179 mg/dl 334 mg/dl Impression: #1 influenza #2 congestive heart failure #3 renal insufficiency due to venous congestion from volume overload Recommendations: The patient is now starting to diuresis. She still has some fluid on board and will benefit from additional diuretics. Otherwise she is stable.
--- NOTE | 2017-09-29 11:29 | DIAGNOSTIC IMAGING REPORT ---
CHEST 2 VIEWS ROUTINE CLINICAL HISTORY: 77 years-old Female presenting with sob/ volume overload/ hypoxia/ HF > recheck status. TECHNIQUE: PA and lateral views of the chest were obtained. COMPARISON: 09/25/2017. FINDINGS: Atherosclerosis of the aortic arch. Tortuosity of the descending thoracic aorta. Cardiac silhouette normal in size. Coronary stent or coronary artery calcification also noted. Bibasilar opacities greater on the right, not significant changed from prior. No new focal infiltrate. Trace bilateral pleural effusions. No pneumothorax. Degenerative changes of the thoracic spine. Upper abdomen normal. IMPRESSION: 1. Cardiomegaly without evidence of pulmonary edema. 2. Trace bibasilar opacities, possibly atelectasis, and trace pleural effusions unchanged from prior. Electronically signed by: Roel Dorman M.D. 09/29/2017 11:27 AM Dictated Date/Time: 09/29/2017 11:26 AM
--- NOTE | 2017-09-29 12:12 | PULMONARY PROGRESS NOTE ---
DATE: 09/29/2017 PROBLEM LIST: Includes influenza A, she was not treated with Tamiflu, UTI for which she is on Rocephin for acute on chronic cardiopulmonary respiratory failure and acute chronic injury, chronic kidney disease. SUBJECTIVE: The patient reports that she continues to be quite short of breath. She states that walking across the hospital room to use the toilet gets very winded and she has to sit and rest for several minutes. She is still using her oxygen, she is on 3 liters per minute. She does have an occasional cough. She states that she will get a little bit of mucus up periodically, but not often. Her chest feels tight. She feels like she has difficulty moving air. She has no chest pain. She states that she was having some issues with her blood pressure this morning. She is not sure of the blood pressure went down or not. She has not had any abdominal pain, states that her bowels are moving, has not had any nausea or vomiting. She is voiding. She was actually just recently started on Lasix 60 mg b.i.d. Prior to that, she had not been on any diuretics and her weight and swelling did increase significantly. She does have some swelling in her extremities. OBJECTIVE: GENERAL: The patient is a 77-year-old female sitting at bedside, initially does not appear in any acute respiratory distress, does not appear in any acute distress; however, when conversing with the patient, she did become slightly dyspneic after a prolonged period of conversation. She is alert and oriented x3. Mood is good. Affect is good. VITAL SIGNS: Temp 36.4, pulse 92, respirations 22; blood pressure was elevated this morning at 183/71. Unfortunately, no recent blood pressure noted. Pulse ox 98% on 3 liters. HEENT: Pupils equal, round and reactive. [place] moist gingival and buccal mucosa. No white plaques present. NECK: Short and thick. No mass or tenderness. CHEST: The patient has diminished breath sounds bilaterally. She does have some bibasilar rales, also has some coarse wheezes in the right mid to upper area. CARDIOVASCULAR: Irregularly irregular. No appreciated murmurs, gallops or rubs. ABDOMEN: Bowel sounds are present. Abdomen is soft. She does have some mild midepigastric tenderness to palpation. There is no guarding noted with this. No rigidity noted with this. EXTREMITIES: The patient has +1 to +2 pitting edema, no erythema. There is no tenderness. NEUROLOGIC: Cranial nerves II through XII grossly intact. No focal deficit noted. LABORATORY DATA: Shows a white count of 3000, H&H 9.3 and 28.0, and platelet count 94,000. The patient had a nuclear medicine lung scan done yesterday just had the perfusion part done there are no perfusion defects noted. Ventilatory scan not done due to droplet precautions from influenza A. IMPRESSION: 1. This is a 77-year-old female who presented to the hospital with increased dyspnea, tested positive for influenza A, but unfortunately was outside the window for Tamiflu. Currently, she is on aggressive pulmonary toilet in the form of Atrovent and levalbuterol q. 4 hours. She is also getting Mucinex and she is on Solu-Medrol 40 b.i.d. At this point, will continue this with consideration for an additional dose of Solu-Medrol, possibly if needed will hold off right now. 2. Acute on chronic respiratory failure with hypoxia. The patient has chronic respiratory failure, does require O2 chronically; however, she is having an exacerbation and this is secondary to the flu. Also, think this is a multifactorial and that her cardiac status is playing a role. 3. Acute decompensation of congestive heart failure. I think that the respiratory demand from the influenza A cause decompensation of her congestive heart failure at this time, unfortunately she did go a period of time without diuresis and she had a 4.8 kilogram weight increase. Lasix was restarted on September 27. Since that time, she has had a 4.4 kilograms decrease with a negative balance of approximately 1800 mL. 4. Klebsiella urinary tract infection. The patient is on Rocephin for this. OVERALL IMPRESSION: I suspect that the patient's current dyspnea is affected by multiple factors, I think that while she states that she has remained stable, I think that the combination of the fluid increase and decompensation is playing a role, in her overall feeling of shortness of breath at this time. When comparing the note from yesterday to how she is today, clinically it appears that she is at least improving somewhat. I think for now that we will continue steroids at the current dose. Continue on Rocephin for the urinary tract infection, which should also help majority pulmonary issues. Continue aggressive pulmonary toilet and can give another day to see if the diuresis helps anymore or not, and also I think that her deconditioning is playing a role. She has been in the hospital for 6 days and I do not think that she has been doing much as far as activity. I think that at some point we need to get physical therapy involved if not already done. The patient had a chest x-ray ordered for today, will see what that shows; otherwise, we will continue to monitor. RAYNA
[2017-09-29 12:15] LABS: INR 2.5 (0.9-1.1)
[2017-09-29 12:18] LABS: CALCIUM 9.3 mg/dl (8.5-10.1); CREATININE 2.55 mg/dl (0.60-1.20); POTASSIUM 3.6 mmol/L (3.5-5.1)
[2017-09-29] MEDS ORDERED: SODIUM CHLORIDE 0.65% NA SOLN 45 ML (OCEAN) ONE (13:17)
[2017-09-29] MEDS ORDERED: INSULIN GLARGINE SOLOSTAR 100 UNITS/ML 3 ML PEN SQ ONE (14:15)
--- NOTE | 2017-09-29 14:18 | Pharmacy Progress Note ---
Glycemic: Assessment & Plan Date of Service Sep 29, 2017. Assessment & Plan The patient was currently receiving 102 units of insulin sq PLUS DRIP per day. BSGs ranging 132 - 334 mg/dl over the past 24hrs. Given lunch time BS I gave an extra 10 units of lantus now and will continue with nightly dose based on scale. I also tightened the CR given the meal time doses of novolog the patient is requiring. It is noted that the IV steroids have been changed from q8 to q12 starting this evening. * Basal insulin: Lantus 34 units every 12 hours (unless < 120) * Correctional Insulin: Novolog Correction per scale ACHS and 0000,0400 Goal Range: Low 110 mg/dL - High 140 mg/dL Correction Factor: 10 mg/dL/unit * Prandial insulin: Per carb ratio of 1 unit per 3 grams CHO consumed Pharmacy will continue to monitor patient daily and write orders per [facility] inpatient glycemic control protocol. Thanks. * Please note that the plan above was derived based on current level of insulin resistance and hospital stress. These recommendations are appropriate for inpatient admission only. Plan of care upon discharge will need to be reassessed to avoid potential outpatient hypo/hyperglycemia.
[2017-09-29] MEDS: WARFARIN SOD 4 MG TAB PO SCH (16:47)
[2017-09-29] MEDS: CEFTRIAXONE SOD INJ 1 GM in DEXTROSE 5% ADD-VANTAGE 50ML 50 ML IV SCH (16:47)
[2017-09-29] MEDS: LOVASTATIN 20 MG TAB PO SCH (21:11)
[2017-09-30] VITALS (14 sets, daily range): BP systolic 162–188; BP diastolic 51–77; PULSE 77–95; TEMP 36.3–36.6; O2SAT 95–100
[2017-09-30] MEDS: IPRATROPIUM BROMIDE NEB SOLN 0.02% 2.5 ML VIAL INH SCH ×6 (03:17→22:55)
[2017-09-30] MEDS: LEVALBUTEROL 1.25MG/0.5ML NEB INH SCH ×6 (03:17→22:55)
[2017-09-30] MEDS: INSULIN ASPART 100 UNITS/ML 3 ML PEN SC SCH ×6 (04:00→20:39)
[2017-09-30 06:24] LABS: CALCIUM 8.8 mg/dl (8.5-10.1); CREATININE 2.21 mg/dl (0.60-1.20); POTASSIUM 3.8 mmol/L (3.5-5.1)
[2017-09-30] MEDS: METHYLPREDNISOLONE IV 40 MG in SYRINGE 0 ML IV SCH ×2 (08:28→20:35)
[2017-09-30] MEDS: LACTOBACILLUS ACIDOPHILUS (FLORANEX) TAB PO SCH ×3 (08:28→16:45)
[2017-09-30] MEDS: ASPIRIN 81 MG ECTAB PO SCH (08:28)
[2017-09-30] MEDS: DILTIAZEM HCL 120 MG CAPCR PO SCH (08:28)
[2017-09-30] MEDS: FUROSEMIDE INJ 60 MG in SYRINGE 0 ML IV SCH ×2 (08:28→16:46)
[2017-09-30] MEDS: GUAIFENESIN 600 MG TABCR PO SCH ×2 (08:29→20:38)
[2017-09-30] MEDS: POTASSIUM CHLORIDE 20 MEQ TABCR PO SCH (08:29)
[2017-09-30] MEDS: CALCITRIOL 0.25 MCG CAP PO SCH (08:29)
[2017-09-30] MEDS: FERROUS SULFATE 325 MG TAB PO SCH (08:29)
[2017-09-30] MEDS: ISOSORBIDE MONONITRATE 30 MG TABCR PO SCH (08:29)
[2017-09-30] MEDS: PANTOprazole SOD 40 MG TAB PO SCH (08:29)
[2017-09-30] MEDS ORDERED: INSULIN GLARGINE SOLOSTAR 100 UNITS/ML 3 ML PEN SQ SCH ×2 (09:00→21:00)
--- NOTE | 2017-09-30 10:39 | Nephrology Progress Note ---
Nephrology Progress Note Date of Service: Sep 30, 2017. Subjective 77-year-old female with shortness of breath, influenza, atrial fibrillation with rapid ventricular response, and diastolic congestive heart failure, being seen for KARLEE on CKD stage 3. Today patient is seated comfortably in chair with legs down. Patient with baseline anxiety but able to carry on a conversation without heavy breathing. on O2 decreased this morning to 2L. wearing slippers that she could not wear two days ago. patient denies any worsened SOB, chest pain, nausea. reports that feet were not edematous this morning but have begun to be so. Objective Date Time Temp Pulse Resp B/P (MAP) Pulse Ox O2 Delivery O2 Flow Rate FiO2 09/30/17 08:13 36.6 83 18 183/74 (110) 98 2.0 09/30/17 08:01 Nasal Cannula 3.0 09/30/17 07:10 84 16 99 Nasal Cannula 3.0 09/30/17 04:00 Nasal Cannula 3.0 09/30/17 03:38 36.3 87 17 165/70 (101) 97 Nasal Cannula 3.0 09/30/17 03:18 95 16 98 Nasal Cannula 3.0 09/30/17 00:00 Nasal Cannula 3.0 09/29/17 23:40 36.4 85 22 159/56 (90) 98 Nasal Cannula 3.0 09/29/17 23:05 103 18 98 Nasal Cannula 3.0 09/29/17 20:24 36.6 89 20 173/62 (99) 98 Nasal Cannula 3.0 09/29/17 20:00 98 Nasal Cannula 3.0 09/29/17 19:08 100 18 98 Nasal Cannula 3.0 09/29/17 16:00 97 Nasal Cannula 3.0 09/29/17 15:37 Nasal Cannula 3.0 09/29/17 15:35 36.5 97 20 167/61 (96) 97 Nasal Cannula 3.0 09/29/17 15:15 90 20 98 Nasal Cannula 2.0 09/29/17 14:26 Nasal Cannula 3.0 09/29/17 12:24 36.6 89 20 180/65 (103) 100 Nasal Cannula 3.0 09/29/17 12:07 Nasal Cannula 3.0 09/29/17 11:30 87 20 98 Nasal Cannula 3.0 09/29/17 10:35 Nasal Cannula 3.0 Physical Exam: GENERAL: Elderly white female up in chair on 2L 02NC. improved dyspnea with speech. Awake, alert, oriented x3. HEENT: Mucous membranes moist. NECK: Supple, obese and hard to appreciate jugular venous distention. CHEST: Bilateral decreased breath sounds mariela bases CARDIOVASCULAR: irregularly irregular w/o mr ABDOMEN: Soft and nontender, obese. no funes EXTREMITIES: 1+ pedal edema, trace edema BL ankles NEURO: cardenas, fluent speech, anxious Current Inpatient Medications Medications (Trade) Dose Ordered Sig/Rose Route Start Time Stop Time Status Last Admin Dose Admin Acetaminophen (Tylenol Tab) 650 mg Q4H PRN PO 09/23/17 13:15 10/23/17 13:14 Al Hydrox/Mg Hydrox/Simethicone (Maalox Max Susp) 15 ml Q4H PRN PO 09/23/17 13:15 10/23/17 13:14 Magnesium Hydroxide (Milk Of Magnesia Susp) 30 ml Q12H PRN PO 09/23/17 13:15 10/23/17 13:14 Ondansetron HCl (Zofran Inj) 4 mg Q6H PRN IV 09/23/17 13:15 10/23/17 13:14 Nitroglycerin (Nitrostat Tab) 0.4 mg UD PRN SL 09/23/17 13:15 10/23/17 13:14 Aspirin (Ecotrin Tab) 81 mg QAM PO 09/24/17 09:00 10/24/17 08:59 09/30/17 08:28 81 MG Polyethylene (Miralax Powder Packet) 17 gm DAILY PRN PO 09/23/17 13:15 10/23/17 13:14 Ferrous Sulfate (Feosol Tab) 325 mg DAILY PO 09/24/17 09:00 10/24/17 08:59 09/30/17 08:29 325 MG Glucose (Glucose Chew Tab) 1 tab UD PRN PO 09/23/17 13:30 10/23/17 13:29 Isosorbide Mononitrate (Imdur Ext Rel Tab) 30 mg DAILY PO 09/24/17 09:00 10/24/17 08:59 09/30/17 08:29 30 MG Losartan Potassium (coZAAR TAB) 100 mg DAILY PO 09/24/17 09:00 10/24/17 08:59 Future Hold 09/25/17 08:51 100 MG Lovastatin (Mevacor Tab) 80 mg HS PO 09/23/17 21:00 10/23/17 20:59 09/29/17 21:11 80 MG Pantoprazole Sodium (Protonix Tab) 40 mg DAILY PO 09/24/17 09:00 10/24/17 08:59 09/30/17 08:29 40 MG Miscellaneous Information (Order Awaiting Action) 1 ea QS N/A 09/23/17 16:00 10/23/17 15:59 Glucose (Glucose 40% Gel) 15-30 GRAMS 15 GRAMS... UD PRN PO 09/23/17 13:30 10/23/17 13:29 Glucose (Glucose Chew Tab) 4-8 Tablets 4 Tabl... UD PRN PO 09/23/17 13:30 10/23/17 13:29 Dextrose (Dextrose 50% 50ML Syringe) 25-50ML OF 50% DW IV FOR... UD PRN IV 09/23/17 13:30 10/23/17 13:29 Glucagon (Glucagon Inj) 1 mg UD PRN SQ 09/23/17 13:30 10/23/17 13:29 Zolpidem Tartrate (Ambien Tab) 5 mg HS PRN PO 09/24/17 03:00 10/24/17 02:59 Diltiazem HCl (Cardizem Cd Cap) 120 mg BID PO 09/24/17 21:00 10/24/17 20:59 09/30/17 08:28 120 MG Calcitriol (Rocaltrol Cap) 0.5 mcg DAILY PO 09/25/17 09:00 10/25/17 08:59 09/30/17 08:29 0.5 MCG Potassium Chloride (Klor-Con Tab) 20 meq DAILY PO 09/25/17 09:00 10/25/17 08:59 09/30/17 08:29 20 MEQ Ceftriaxone Sodium 1 gm/ Dextrose 50 ml @ 100 mls/hr Q24H IV 09/25/17 16:30 09/30/17 16:29 09/29/17 16:47 100 MLS/HR Lactobacillus Acidophilus (Floranex Tab) 4 tab TIDM PO 09/26/17 11:30 10/26/17 11:29 09/30/17 08:28 4 TAB Ipratropium Pimento (Atrovent 0.02% 0.5MG/2.5ML Neb) 0.5 mg Q4R INH 09/26/17 12:00 10/26/17 11:59 09/30/17 07:09 0.5 MG Levalbuterol (Xopenex 1.25MG/ 0.5ML Neb) 1.25 mg Q4R INH 09/26/17 12:00 10/26/17 11:59 09/30/17 07:09 1.25 MG Miscellaneous Information (Consult Glycemic Management Pharmacy) 1 ea UD PRN N/A 09/26/17 11:30 10/26/17 11:29 Guaifenesin (Mucinex Contr Rel Tab) 600 mg Q12 PO 09/27/17 21:00 10/27/17 20:59 09/30/17 08:29 600 MG Furosemide 60 mg/ Syringe 6 ml @ 4 mls/min BID17 IV 09/27/17 16:00 10/27/17 15:59 09/30/17 08:28 4 MLS/MIN Insulin Aspart (novoLOG ASPART) ACHS SC 09/28/17 11:00 10/28/17 10:59 09/30/17 08:35 12 UNITS Warfarin Sodium (Coumadin Tab) 4 mg SuTuTh@1600 PO 09/29/17 16:00 10/29/17 15:59 09/29/17 16:47 4 MG Warfarin Sodium (Coumadin Tab) 2 mg MoWeFrSa@1600 PO 09/28/17 16:00 10/28/17 15:59 09/28/17 17:39 2 MG Methylprednisolone Sodium Succinate 40 mg/Syringe 0.64 ml @ 1.5 mls/min BID IV 09/29/17 21:00 10/25/17 12:59 09/30/17 08:28 1.5 MLS/MIN Insulin Glargine (Lantus Solostar Pen) 34 units BID SQ 09/30/17 09:00 10/30/17 08:59 09/30/17 08:36 34 UNITS Last 24 Hours Test 09/29/17 10:53 09/29/17 11:47 09/29/17 16:04 09/29/17 21:08 Bedside Glucose 334 mg/dl 214 mg/dl 104 mg/dl Prothrombin Time 25.8 SECONDS Prothromb Time International Ratio 2.5 Sodium Level 134 mmol/L Potassium Level 3.6 mmol/L Chloride Level 99 mmol/L Carbon Dioxide Level 23 mmol/L Anion Gap 13.0 mmol/L Blood Urea Nitrogen 67 mg/dl Creatinine 2.55 mg/dl Est Creatinine Clear Calc Drug Dose 21.2 ml/min Estimated GFR () 20.0 Estimated GFR (Non- 17.3 BUN/Creatinine Ratio 26.4 Random Glucose 326 mg/dl Calcium Level 9.3 mg/dl Magnesium Level 2.3 mg/dl Beta-Hydroxybutyric Acid 1.36 mg/dL Thyroid Stimulating Hormone (TSH) 0.241 uIu/ml Test 09/30/17 00:23 09/30/17 04:02 09/30/17 05:30 09/30/17 06:49 Bedside Glucose 103 mg/dl 144 mg/dl 145 mg/dl Sodium Level 137 mmol/L Potassium Level 3.8 mmol/L Chloride Level 102 mmol/L Carbon Dioxide Level 28 mmol/L Anion Gap 7.0 mmol/L Blood Urea Nitrogen 66 mg/dl Creatinine 2.21 mg/dl Est Creatinine Clear Calc Drug Dose 24.5 ml/min Estimated GFR () 23.8 Estimated GFR (Non- 20.5 BUN/Creatinine Ratio 29.6 Random Glucose 137 mg/dl Calcium Level 8.8 mg/dl Other Studies: 09/29/17 09/30/17 10/01/17 08:00 08:00 08:00 Intake Total 565 ml 1300 ml Output Total 2500 ml 3235 ml Balance -1935 ml -1935 ml Assessment & Plan KARLEE on CKD stage 3: nonoliguric ischemic ATN, not surprising that in the context of influenza, congestive heart failure, atrial fibrillation with rapid ventricular response >> she has volume overload w/ cardiorenal syndrome. Volume status improving and potassium appropriate at 3.8. on K 20meq daily. CXR done yesterday does not show pulmonary edema and with trace pleural effusions and bibasilar opacities unchanged from prior studies. Does not need dialysis at this time. will continue with fluid/dietary restrictions and follow weights. continue with Lasix 60 IV BID. creatinine peaked at 3.35 and now markedly improved at 2.21. will continue to follow. Hypervolemic hyponatremia: secondary to congestive heart failure and fluid retention. last sodium improved at 137. will continue w/ IV Lasix; cont fluid limit and low Na diet as well edema: did discuss keeping feet up to improve patient edema. patient politely refused compression stockings at this time. Nursing there to help patient elevate feet using chair. patient states that she will continue this practice. This patient was seen and treated with direct collaboration with Dr. Garcia. Thank you for the opportunity to participate in this patient's care. Appreciate the Consult. ATTENDING NOTE: I performed a history and physical examination of the patient, including specifically on history-feeling better, working at [employer]; remains on 3L 02; remains w/ HTN, on ROS-notes minimal breathing improvement, on physical exam on 3L NC, irregularly irregular cor; 1-2+ BLE edema ankle/pedal (better), and my impression and plan are to cont current IV diuretics; BP uncontrolled and not appropriate to resume ARB >> will increase diltiazem to 180 bid starting this evening. I have discussed the patient's management with Kelly Pierre PA-C. Please refer to the above note for the documented findings and plan of care. Verónica Garcia MD, PhD
--- NOTE | 2017-09-30 10:59 | PULMONARY PROGRESS NOTE ---
DATE: 09/30/2017 PROBLEM LIST: Includes influenza A, not treated with Tamiflu; UTI, treated with Rocephin, [id number] cardiopulmonary respiratory failure, [id number] kidney injury/chronic kidney disease. SUBJECTIVE: The patient reports that she is about the same today. She states that she still gets winded with walking across the room to use the bathroom; however, not quite coughing as much, not as tired, not having any chest pain, no chest pressure, no congestion. The patient reports that her appetite is okay. She states that her legs were down this morning, but the longer she sat, the more she swells up. No other concerns or problems at present. OBJECTIVE: GENERAL: The patient is a 77-year-old female sitting at bedside in no acute distress. She is alert. She is interactive and cooperative, less dyspneic today with conversation and actually she is able to carry on conversation, did not appear to get dyspneic at all. Alert and oriented. Mood is good. Affect is good. VITAL SIGNS: Temperature 36.6, pulse 83, respirations 18, blood pressure elevated again today at 183/74, notes at 8:13 this morning, pulse ox 98% on 2 liters. CHEST: Diminished breath sound. She does have a little bit of coarse wheeze in the right base that extends up through the upper airways. She sounds like she is moving air well with no real noticeable wheeze or rhonchi. CARDIOVASCULAR: Irregularly irregular. No murmurs noted. ABDOMEN: Obese, soft, nontender. EXTREMITIES: +1 edema. This morning, patient does have some chronic venous stasis changes as well. LABORATORY DATA: INR is 2.5, BUN is down to 66, creatinine is down to 2.21. Chest x-ray yesterday shows some persistent trace bibasilar changes. Suspicion is that this is probably a fluid, initially cardiomegaly. IMPRESSION: 1. Ujobk-tx-cnrgjsi respiratory failure with decompensation secondary to influenza A. At this time, patient continues to show improvement and patient clinically is much better today than yesterday evening. 2. Nfkbf-im-pwcxhnd kidney disease. 3. Urinary tract infection. PLAN: At this point is to continue IV steroids with a transition over to p.o., hopefully tomorrow. We would recommend that she have physical therapy. This was actually discussed with hospitalist, Dr. Gibson. Continue aggressive diuresis for her heart failure. We will reevaluate in the morning. The patient will need close followup in the outpatient setting.
--- NOTE | 2017-09-30 13:04 | Pharmacy Progress Note ---
Glycemic: Assessment & Plan Date of Service Sep 30, 2017. Assessment & Plan The patient is currently receiving 130 units of insulin per day. BSGs ranging 103 - 214 mg/dl over the past 24hrs. Blood sugars are much improving after increase of basal insulin and tightening of carb ratio. It is noted that IV steroids will continue today at SM 40mg q12 and oral prednisone is planned to start tomorrow. * Basal insulin: Lantus 34 units in the morning and either 25 or 34 units in the evening based on BSG scale * Correctional Insulin: Novolog Correction per scale ACHS Goal Range: Low 110 mg/dL - High 140 mg/dL Correction Factor: 10 mg/dL/unit * Prandial insulin: Per carb ratio of 1 unit per 3 grams CHO consumed Pharmacy will continue to monitor patient daily and write orders per [facility] inpatient glycemic control protocol. Thanks. * Please note that the plan above was derived based on current level of insulin resistance and hospital stress. These recommendations are appropriate for inpatient admission only. Plan of care upon discharge will need to be reassessed to avoid potential outpatient hypo/hyperglycemia.
--- NOTE | 2017-09-30 15:24 | Progress Note ---
Subjective Date of Service: Sep 30, 2017. Subjective This is a 77-year-old female with history of paroxysmal atrial fibrillation and diastolic heart failure who was admitted with influenza. She also had acute on chronic renal failure and was massively volume overloaded. She continues to be in negative volume numbers. She is now starting to feel improved. She has no new complaints. Problem List Medical Problems: (1) Acute kidney injury Status: Acute (2) KARLEE (acute kidney injury) Status: Acute (3) Anxiety attack Status: Acute (4) Atrial fibrillation with rapid ventricular response Status: Acute (5) Atypical chest pain Status: Acute (6) Bronchitis Status: Acute (7) Candidal intertrigo Status: Acute (8) COPD exacerbation Status: Acute (9) COPD exacerbation Status: Acute (10) Hyperventilation Status: Acute (11) Left sided chest pain Status: Acute (12) Pneumonia Status: Acute (13) Shortness of breath Status: Acute (14) Substernal chest pain Status: Acute (15) Substernal chest pain Status: Acute (16) UTI (urinary tract infection) Status: Acute (17) Weakness Status: Acute Review of Systems All Other Systems: Reviewed and Negative Medications Current Inpatient Medications Medications (Trade) Dose Ordered Sig/Rose Route Start Time Stop Time Status Last Admin Dose Admin Acetaminophen (Tylenol Tab) 650 mg Q4H PRN PO 09/23/17 13:15 10/23/17 13:14 Al Hydrox/Mg Hydrox/Simethicone (Maalox Max Susp) 15 ml Q4H PRN PO 09/23/17 13:15 10/23/17 13:14 Magnesium Hydroxide (Milk Of Magnesia Susp) 30 ml Q12H PRN PO 09/23/17 13:15 10/23/17 13:14 Ondansetron HCl (Zofran Inj) 4 mg Q6H PRN IV 09/23/17 13:15 10/23/17 13:14 Nitroglycerin (Nitrostat Tab) 0.4 mg UD PRN SL 09/23/17 13:15 10/23/17 13:14 Aspirin (Ecotrin Tab) 81 mg QAM PO 09/24/17 09:00 10/24/17 08:59 09/30/17 08:28 81 MG Polyethylene (Miralax Powder Packet) 17 gm DAILY PRN PO 09/23/17 13:15 10/23/17 13:14 Ferrous Sulfate (Feosol Tab) 325 mg DAILY PO 09/24/17 09:00 10/24/17 08:59 09/30/17 08:29 325 MG Glucose (Glucose Chew Tab) 1 tab UD PRN PO 09/23/17 13:30 10/23/17 13:29 Isosorbide Mononitrate (Imdur Ext Rel Tab) 30 mg DAILY PO 09/24/17 09:00 10/24/17 08:59 09/30/17 08:29 30 MG Losartan Potassium (coZAAR TAB) 100 mg DAILY PO 09/24/17 09:00 10/24/17 08:59 Future Hold 09/25/17 08:51 100 MG Lovastatin (Mevacor Tab) 80 mg HS PO 09/23/17 21:00 10/23/17 20:59 09/29/17 21:11 80 MG Pantoprazole Sodium (Protonix Tab) 40 mg DAILY PO 09/24/17 09:00 10/24/17 08:59 09/30/17 08:29 40 MG Miscellaneous Information (Order Awaiting Action) 1 ea QS N/A 09/23/17 16:00 10/23/17 15:59 Glucose (Glucose 40% Gel) 15-30 GRAMS 15 GRAMS... UD PRN PO 09/23/17 13:30 10/23/17 13:29 Glucose (Glucose Chew Tab) 4-8 Tablets 4 Tabl... UD PRN PO 09/23/17 13:30 10/23/17 13:29 Dextrose (Dextrose 50% 50ML Syringe) 25-50ML OF 50% DW IV FOR... UD PRN IV 09/23/17 13:30 10/23/17 13:29 Glucagon (Glucagon Inj) 1 mg UD PRN SQ 09/23/17 13:30 10/23/17 13:29 Zolpidem Tartrate (Ambien Tab) 5 mg HS PRN PO 09/24/17 03:00 10/24/17 02:59 Diltiazem HCl (Cardizem Cd Cap) 120 mg BID PO 09/24/17 21:00 10/24/17 20:59 09/30/17 08:28 120 MG Calcitriol (Rocaltrol Cap) 0.5 mcg DAILY PO 09/25/17 09:00 10/25/17 08:59 09/30/17 08:29 0.5 MCG Potassium Chloride (Klor-Con Tab) 20 meq DAILY PO 09/25/17 09:00 10/25/17 08:59 09/30/17 08:29 20 MEQ Ceftriaxone Sodium 1 gm/ Dextrose 50 ml @ 100 mls/hr Q24H IV 09/25/17 16:30 09/30/17 16:29 09/29/17 16:47 100 MLS/HR Lactobacillus Acidophilus (Floranex Tab) 4 tab TIDM PO 09/26/17 11:30 10/26/17 11:29 09/30/17 12:18 4 TAB Ipratropium [place] (Atrovent 0.02% 0.5MG/2.5ML Neb) 0.5 mg Q4R INH 09/26/17 12:00 10/26/17 11:59 09/30/17 14:50 0.5 MG Levalbuterol (Xopenex 1.25MG/ 0.5ML Neb) 1.25 mg Q4R INH 09/26/17 12:00 10/26/17 11:59 09/30/17 14:50 1.25 MG Miscellaneous Information (Consult Glycemic Management Pharmacy) 1 ea UD PRN N/A 09/26/17 11:30 10/26/17 11:29 Guaifenesin (Mucinex Contr Rel Tab) 600 mg Q12 PO 09/27/17 21:00 10/27/17 20:59 09/30/17 08:29 600 MG Furosemide 60 mg/ Syringe 6 ml @ 4 mls/min BID17 IV 09/27/17 16:00 10/27/17 15:59 09/30/17 08:28 4 MLS/MIN Insulin Aspart (novoLOG ASPART) ACHS SC 09/28/17 11:00 10/28/17 10:59 09/30/17 12:21 25 UNITS Warfarin Sodium (Coumadin Tab) 4 mg SuTuTh@1600 PO 09/29/17 16:00 10/29/17 15:59 09/29/17 16:47 4 MG Warfarin Sodium (Coumadin Tab) 2 mg MoWeFrSa@1600 PO 09/28/17 16:00 10/28/17 15:59 09/28/17 17:39 2 MG Methylprednisolone Sodium Succinate 40 mg/Syringe 0.64 ml @ 1.5 mls/min BID IV 09/29/17 21:00 10/25/17 12:59 09/30/17 08:28 1.5 MLS/MIN Insulin Glargine (Lantus Solostar Pen) SEE PROTOCOL BID SQ 09/30/17 21:00 10/30/17 20:59 Insulin Aspart (novoLOG ASPART) SLIDING SCALE 0000,0400 SC 10/01/17 00:00 10/01/17 05:00 Objective Vital Signs Date Time Temp Pulse Resp B/P (MAP) Pulse Ox O2 Delivery O2 Flow Rate FiO2 09/30/17 14:50 88 16 96 Nasal Cannula 2.0 09/30/17 12:27 Nasal Cannula 3.0 09/30/17 11:22 36.5 87 22 165/51 (89) 100 Nasal Cannula 09/30/17 10:40 85 16 97 Nasal Cannula 2.0 09/30/17 08:13 36.6 83 18 183/74 (110) 98 2.0 09/30/17 08:01 Nasal Cannula 3.0 09/30/17 07:10 84 16 99 Nasal Cannula 3.0 09/30/17 04:00 Nasal Cannula 3.0 09/30/17 03:38 36.3 87 17 165/70 (101) 97 Nasal Cannula 3.0 09/30/17 03:18 95 16 98 Nasal Cannula 3.0 09/30/17 00:00 Nasal Cannula 3.0 09/29/17 23:40 36.4 85 22 159/56 (90) 98 Nasal Cannula 3.0 09/29/17 23:05 103 18 98 Nasal Cannula 3.0 09/29/17 20:24 36.6 89 20 173/62 (99) 98 Nasal Cannula 3.0 09/29/17 20:00 98 Nasal Cannula 3.0 09/29/17 19:08 100 18 98 Nasal Cannula 3.0 09/29/17 16:00 97 Nasal Cannula 3.0 09/29/17 15:37 Nasal Cannula 3.0 09/29/17 15:35 36.5 97 20 167/61 (96) 97 Nasal Cannula 3.0 09/29/17 15:15 90 20 98 Nasal Cannula 2.0 Physical Exam General Appearance: WD/WN, no apparent distress Eyes: normal inspection, PERRL, EOMI ENT: normal ENT inspection, hearing grossly normal Neck: supple, thyroid normal, no JVD Respiratory/Chest: chest non-tender, lungs clear, normal breath sounds Cardiovascular: regular rate, rhythm, no gallop, no murmur Abdomen: normal bowel sounds, non tender, soft Extremities: normal range of motion, non-tender, + pedal edema (the edema is improving) 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, no motor/sensory deficits, alert, oriented x 3 Skin: normal color, warm/dry, no rash Lymphatic: no adenopathy Laboratory Results Last 24 Hours Test 09/29/17 16:04 09/29/17 21:08 09/30/17 00:23 09/30/17 04:02 Bedside Glucose 214 mg/dl 104 mg/dl 103 mg/dl 144 mg/dl Test 09/30/17 05:30 09/30/17 06:49 09/30/17 11:08 Sodium Level 137 mmol/L Potassium Level 3.8 mmol/L Chloride Level 102 mmol/L Carbon Dioxide Level 28 mmol/L Anion Gap 7.0 mmol/L Blood Urea Nitrogen 66 mg/dl Creatinine 2.21 mg/dl Est Creatinine Clear Calc Drug Dose 24.5 ml/min Estimated GFR () 23.8 Estimated GFR (Non- 20.5 BUN/Creatinine Ratio 29.6 Random Glucose 137 mg/dl Calcium Level 8.8 mg/dl Bedside Glucose 145 mg/dl 192 mg/dl Assessment and Plan Impression: 1. Acute on chronic diastolic heart failure 2. Atrial fibrillation 3. Influenza 4. Acute on chronic renal failure Recommendations: As outlined above the patient is a negative #is slowly improving. Her creatinine has also continued to improve. She still has some lower extremity edema and I would continue the diuretics through today. Reevaluate her tomorrow.
[2017-09-30] MEDS: WARFARIN SOD 2 MG TAB PO SCH (16:16)
--- NOTE | 2017-09-30 19:28 | Progress Note ---
Medicine Progress Note Date & Time of Visit: Sep 30, 2017 at 10:22. Subjective Pt was seen and examined Sitting in bed with no distress Pt said that she is starting to feel better Denies any chest pain, palpitation, dizziness Objective Last 8 Hrs Date Time Temp Pulse Resp B/P (MAP) Pulse Ox O2 Delivery O2 Flow Rate FiO2 09/30/17 16:24 36.5 93 18 174/67 (102) 100 Nasal Cannula 2.0 09/30/17 16:00 100 Nasal Cannula 2.0 09/30/17 14:50 88 16 96 Nasal Cannula 2.0 09/30/17 12:27 Nasal Cannula 3.0 Physical Exam: General- No acute distress Head- atraumatic Eyes- PERRL, EOMI ENT- oropharynx clear Neck- supple, no JVD Lungs- Decrease breath sound Heart- irregular rhythm; no murmur Abdomen- normal bowel sounds, soft Extremities- no calf tenderness Neuro- alert, oriented x 3; PERRL Skin- warm & dry Laboratory Results: Last 24 Hours Test 09/29/17 21:08 09/30/17 00:23 09/30/17 04:02 09/30/17 05:30 Bedside Glucose 104 mg/dl 103 mg/dl 144 mg/dl Sodium Level 137 mmol/L Potassium Level 3.8 mmol/L Chloride Level 102 mmol/L Carbon Dioxide Level 28 mmol/L Anion Gap 7.0 mmol/L Blood Urea Nitrogen 66 mg/dl Creatinine 2.21 mg/dl Est Creatinine Clear Calc Drug Dose 24.5 ml/min Estimated GFR () 23.8 Estimated GFR (Non- 20.5 BUN/Creatinine Ratio 29.6 Random Glucose 137 mg/dl Calcium Level 8.8 mg/dl Test 09/30/17 06:49 09/30/17 11:08 09/30/17 16:39 Bedside Glucose 145 mg/dl 192 mg/dl 101 mg/dl Assessment & Plan 77 year old female with history of COPD, Nocturnal Hypoxemia, A fib on Coumadin , CAD, DM, HTN presenting with dyspnea ACUTE HYPOXIC RESPIRATORY FAILURE INFLUENZA A vs ACUTE DIASTOLIC CHF EXACERBATION vs COPD EXACERBATION Positive for influenza A Continue Tamiflu V/Q scan showed no perfusion defects to suggest pulmonary embolus. CXR showed mild central pulmonary vascular congestion without overt edema. On Solumedrol, will taper steroid Continue lasix 60mg BID Continue Neb treatment Will need CPAP as an outpatient as per pulmonary team Cardiology and pulmonary on board Clinically improved 2 step exercise on discharge A FIB Rate controlled Continue PO Cardizem INR 2.5 yesterday Continue Coumadin Monitor INR ACUTE RENAL FAILURE ON CKD 4 Creatine on admission 1.63 Received IVF Creatine was 2.2 today Continue monitor BMP Nephrology on board Case discussed with lucille recommended to continue diuretic DM type 2 Most recent Hba1c 7.4 Continue lantus Pharmacy on board for glycemic control UTI Urine cx positive for Klebsiella pna complete course of Rocephin CAD continue ASA DVT Px on coumadin CODE STATUS FULL CODE Consultants: Maribell Current Inpatient Medications: Current Inpatient Medications Medications (Trade) Dose Ordered Sig/Rose Route Start Time Stop Time Status Last Admin Dose Admin Acetaminophen (Tylenol Tab) 650 mg Q4H PRN PO 09/23/17 13:15 10/23/17 13:14 Al Hydrox/Mg Hydrox/Simethicone (Maalox Max Susp) 15 ml Q4H PRN PO 09/23/17 13:15 10/23/17 13:14 Magnesium Hydroxide (Milk Of Magnesia Susp) 30 ml Q12H PRN PO 09/23/17 13:15 10/23/17 13:14 Ondansetron HCl (Zofran Inj) 4 mg Q6H PRN IV 09/23/17 13:15 10/23/17 13:14 Nitroglycerin (Nitrostat Tab) 0.4 mg UD PRN SL 09/23/17 13:15 10/23/17 13:14 Aspirin (Ecotrin Tab) 81 mg QAM PO 09/24/17 09:00 10/24/17 08:59 09/30/17 08:28 81 MG Polyethylene (Miralax Powder Packet) 17 gm DAILY PRN PO 09/23/17 13:15 10/23/17 13:14 Ferrous Sulfate (Feosol Tab) 325 mg DAILY PO 09/24/17 09:00 10/24/17 08:59 09/30/17 08:29 325 MG Glucose (Glucose Chew Tab) 1 tab UD PRN PO 09/23/17 13:30 10/23/17 13:29 Isosorbide Mononitrate (Imdur Ext Rel Tab) 30 mg DAILY PO 09/24/17 09:00 10/24/17 08:59 09/30/17 08:29 30 MG Losartan Potassium (coZAAR TAB) 100 mg DAILY PO 09/24/17 09:00 10/24/17 08:59 Future Hold 09/25/17 08:51 100 MG Lovastatin (Mevacor Tab) 80 mg HS PO 09/23/17 21:00 10/23/17 20:59 09/29/17 21:11 80 MG Pantoprazole Sodium (Protonix Tab) 40 mg DAILY PO 09/24/17 09:00 10/24/17 08:59 09/30/17 08:29 40 MG Miscellaneous Information (Order Awaiting Action) 1 ea QS N/A 09/23/17 16:00 10/23/17 15:59 Glucose (Glucose 40% Gel) 15-30 GRAMS 15 GRAMS... UD PRN PO 09/23/17 13:30 10/23/17 13:29 Glucose (Glucose Chew Tab) 4-8 Tablets 4 Tabl... UD PRN PO 09/23/17 13:30 10/23/17 13:29 Dextrose (Dextrose 50% 50ML Syringe) 25-50ML OF 50% DW IV FOR... UD PRN IV 09/23/17 13:30 10/23/17 13:29 Glucagon (Glucagon Inj) 1 mg UD PRN SQ 09/23/17 13:30 10/23/17 13:29 Zolpidem Tartrate (Ambien Tab) 5 mg HS PRN PO 09/24/17 03:00 10/24/17 02:59 Calcitriol (Rocaltrol Cap) 0.5 mcg DAILY PO 09/25/17 09:00 10/25/17 08:59 09/30/17 08:29 0.5 MCG Potassium Chloride (Klor-Con Tab) 20 meq DAILY PO 09/25/17 09:00 10/25/17 08:59 09/30/17 08:29 20 MEQ Lactobacillus Acidophilus (Floranex Tab) 4 tab TIDM PO 09/26/17 11:30 10/26/17 11:29 09/30/17 16:45 4 TAB Ipratropium [place] (Atrovent 0.02% 0.5MG/2.5ML Neb) 0.5 mg Q4R INH 09/26/17 12:00 10/26/17 11:59 09/30/17 14:50 0.5 MG Levalbuterol (Xopenex 1.25MG/ 0.5ML Neb) 1.25 mg Q4R INH 09/26/17 12:00 10/26/17 11:59 09/30/17 14:50 1.25 MG Miscellaneous Information (Consult Glycemic Management Pharmacy) 1 ea UD PRN N/A 09/26/17 11:30 10/26/17 11:29 Guaifenesin (Mucinex Contr Rel Tab) 600 mg Q12 PO 09/27/17 21:00 10/27/17 20:59 09/30/17 08:29 600 MG Furosemide 60 mg/ Syringe 6 ml @ 4 mls/min BID17 IV 09/27/17 16:00 10/27/17 15:59 09/30/17 16:46 4 MLS/MIN Insulin Aspart (novoLOG ASPART) ACHS SC 09/28/17 11:00 10/28/17 10:59 09/30/17 17:42 11 UNITS Warfarin Sodium (Coumadin Tab) 4 mg SuTuTh@1600 PO 09/29/17 16:00 10/29/17 15:59 09/29/17 16:47 4 MG Warfarin Sodium (Coumadin Tab) 2 mg MoWeFrSa@1600 PO 09/28/17 16:00 10/28/17 15:59 09/30/17 16:16 2 MG Methylprednisolone Sodium Succinate 40 mg/Syringe 0.64 ml @ 1.5 mls/min BID IV 09/29/17 21:00 10/25/17 12:59 09/30/17 08:28 1.5 MLS/MIN Insulin Glargine (Lantus Solostar Pen) SEE PROTOCOL BID SQ 09/30/17 21:00 10/30/17 20:59 Insulin Aspart (novoLOG ASPART) SLIDING SCALE 0000,0400 SC 10/01/17 00:00 10/01/17 05:00 Diltiazem HCl (Cardizem Cd Cap) 180 mg BID PO 09/30/17 21:00 10/30/17 20:59
[2017-09-30] MEDS: DILTIAZEM HCL 180 MG CAPCR PO SCH (20:36)
[2017-09-30] MEDS: LOVASTATIN 20 MG TAB PO SCH (20:37)
[2017-10-01] VITALS (13 sets, daily range): BP systolic 143–180; BP diastolic 54–83; PULSE 72–101; TEMP 36.2–36.8; O2SAT 95–100
[2017-10-01] MEDS: INSULIN ASPART 100 UNITS/ML 3 ML PEN SC SCH ×6 (00:31→21:38)
[2017-10-01] MEDS: IPRATROPIUM BROMIDE NEB SOLN 0.02% 2.5 ML VIAL INH SCH ×6 (03:46→23:19)
[2017-10-01] MEDS: LEVALBUTEROL 1.25MG/0.5ML NEB INH SCH ×6 (03:46→23:19)
[2017-10-01 05:05] LABS: HEMATOCRIT 31.9 % (37-47); HEMOGLOBIN 10.6 g/dL (12.0-16.0); MEAN CELL VOLUME 93.3 fL (80-100); MEAN PLATELET VOLUME 10.6 fL (7.4-10.4); PLATELET COUNT 126 K/uL (130-400); RED CELL DISTRIBUTION WIDTH CV 13.8 % (11.5-14.5); RED CELL DISTRIBUTION WIDTH SD 46.8 fL (36.4-46.3); WHITE BLOOD COUNT 5.78 K/uL (4.8-10.8)
[2017-10-01 05:14] LABS: INR 2.6 (0.9-1.1)
[2017-10-01 05:39] LABS: CALCIUM 8.7 mg/dl (8.5-10.1); CREATININE 2.35 mg/dl (0.60-1.20); POTASSIUM 3.6 mmol/L (3.5-5.1)
[2017-10-01 06:02] LABS: MEAN CORPUSCULAR HGB CONC 33.2 g/dl (32-36)
[2017-10-01] MEDS: INSULIN GLARGINE SOLOSTAR 100 UNITS/ML 3 ML PEN SQ SCH ×2 (08:09→21:38)
[2017-10-01] MEDS: FERROUS SULFATE 325 MG TAB PO SCH (08:10)
[2017-10-01] MEDS: ASPIRIN 81 MG ECTAB PO SCH (08:10)
[2017-10-01] MEDS: LACTOBACILLUS ACIDOPHILUS (FLORANEX) TAB PO SCH ×3 (08:10→16:23)
[2017-10-01] MEDS: CALCITRIOL 0.25 MCG CAP PO SCH (08:10)
[2017-10-01] MEDS: METHYLPREDNISOLONE IV 40 MG in SYRINGE 0 ML IV SCH (08:11)
[2017-10-01] MEDS: FUROSEMIDE INJ 60 MG in SYRINGE 0 ML IV SCH (08:11)
[2017-10-01] MEDS: GUAIFENESIN 600 MG TABCR PO SCH ×2 (08:12→21:07)
[2017-10-01] MEDS: ISOSORBIDE MONONITRATE 30 MG TABCR PO SCH (08:12)
[2017-10-01] MEDS: POTASSIUM CHLORIDE 20 MEQ TABCR PO SCH (08:12)
[2017-10-01] MEDS: PANTOprazole SOD 40 MG TAB PO SCH (08:12)
[2017-10-01] MEDS: DILTIAZEM HCL 180 MG CAPCR PO SCH ×2 (08:13→21:06)
--- NOTE | 2017-10-01 12:13 | PULMONARY PROGRESS NOTE ---
DATE: 10/01/2017 PROBLEM LIST: Includes: 1. Influenza A which was not treated with Tamiflu. 2. Urinary tract infection which was treated with Rocephin. 3. Acute on chronic cardiopulmonary respiratory failure. 4. Acute on chronic kidney injury with chronic kidney disease. 5. Congestive heart failure which is decompensated. SUBJECTIVE: The patient reports that she has been abstained from a pulmonary standpoint today. She states that she still does have a cough which does sound loose, although she has not really been getting much mucus up. She still gets dyspneic with walking across her hospital room. She is still on oxygen at 2 liters per minute. No other concerns. No chest pain, abdominal pain. Does have swelling in the extremities, which is good in the morning and worsens through the day. OBJECTIVE: GENERAL: The patient is a 77-year-old female, sitting at bedside in no acute distress. She is alert and oriented x3. Mood is good. Affect is good. VITAL SIGNS: Temp 36.5, pulse 88, respirations 20, blood pressure most recent is 175/54, pulse ox 99% on 2 liters. HEENT: Normocephalic, atraumatic. Pupils equal. CHEST: The patient still with a few scattered wheezes in the bases. No rale or rhonchi noted. CARDIOVASCULAR: Irregularly irregular. There are no murmurs, gallops or rubs. ABDOMEN: Obese. EXTREMITIES: Trace edema bilaterally. No tenderness. NEUROLOGIC: Cranial nerves II through XII are intact. No focal deficit noted. LABORATORY DATA: White count 5000, H&H 10.6 and 31.9, and platelet count is 126,000. BUN is 69, creatinine is 2.35. IMAGING DATA: No new imaging data. IMPRESSION AND PLAN: This is a 77-year-old female who has a longstanding history of chronic obstructive pulmonary disease with acute on chronic respiratory failure. The patient was admitted recently due to influenza A causing exacerbation of the above. At this point, I think that this is slowly improving. The patient is not quite back to her baseline as far as from a pulmonary standpoint strictly, but she is approaching this. Unfortunately, the influenza seems to be a cause a decompensation of her congestive heart failure, which is also affecting her breathing. The patient is being diuresed by nephrology and they are also monitoring her blood pressure. At this point, I think from a pulmonary standpoint, the patient is pretty much stable and there is a whole lot more that we can offer at this time. I think the patient would benefit from physical therapy and potentially even a rehab stay to get her strength back. I did speak with Dr. Gibson about this. At this point, would recommend to continue with steroid taper slowly and we will at this point sign off on the patient; however, if there is a need, please contact us and we will reevaluate. RAYNA
--- NOTE | 2017-10-01 14:13 | Cardiology Follow-Up ---
Subjective Subjective Date of Service: Oct 01, 2017. Additional Details: The patient is a 77-year-old admitted with influenza, diastolic heart failure and atrial fibrillation. She is comfortable today and sitting in a chair. Unfortunately she still has dyspnea with activity. Physical therapy has been working with her and at least ambulating with her in the room. Problem List Medical Problems: (1) Acute kidney injury Status: Acute (2) KARLEE (acute kidney injury) Status: Acute (3) Anxiety attack Status: Acute (4) Atrial fibrillation with rapid ventricular response Status: Acute (5) Atypical chest pain Status: Acute (6) Bronchitis Status: Acute (7) Candidal intertrigo Status: Acute (8) COPD exacerbation Status: Acute (9) COPD exacerbation Status: Acute (10) Hyperventilation Status: Acute (11) Left sided chest pain Status: Acute (12) Pneumonia Status: Acute (13) Shortness of breath Status: Acute (14) Substernal chest pain Status: Acute (15) Substernal chest pain Status: Acute (16) UTI (urinary tract infection) Status: Acute (17) Weakness Status: Acute Review of Systems Constitutional: + see HPI Respiratory: + cough, + shortness of breath, + dyspnea on exertion, No see HPI , No sputum, No wheezing, No dyspnea at rest, No hemoptysis, No problem reported Cardiac: + edema, No see HPI, No chest pain, No orthopnea, No PND, No claudication, No palpitations, No problem reported Neurologic: + see HPI Objective Vital Signs Last Vital Signs Documentation Date Time Temp Pulse Resp B/P (MAP) Pulse Ox O2 Delivery O2 Flow Rate FiO2 10/01/17 12:15 Nasal Cannula 2.0 10/01/17 11:25 36.6 72 20 143/59 (87) 100 Physical Exam: General Appearance: WD/WN, no apparent distress Eyes: bilateral eyes normal inspection, bilateral eyes PERRL, bilateral eyes EOMI ENT: normal ENT inspection, hearing grossly normal Neck: supple, thyroid normal, no JVD Respiratory/Chest: chest non-tender, lungs clear, normal breath sounds Cardiovascular: regular rate, rhythm, no gallop, no murmur Abdomen: normal bowel sounds, non tender, soft Extremities: normal range of motion, non-tender, + pedal edema (the edema is improving) 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 Acute on chronic diastolic heart failure 2. Atrial fibrillation 3. Influenza 4. Acute on chronic renal failure Recommendations: The patient remains in negative fluid balance. I believe she is moving in the right direction. I have no new recommendations. I do see that she has been switched to oral diuretics.
--- NOTE | 2017-10-01 14:16 | Pharmacy Progress Note ---
Glycemic: Assessment & Plan Date of Service Oct 01, 2017. Assessment & Plan The patient is currently receiving 107 units of insulin per day. BSGs ranging 83 - 193 mg/dl over the past 24hrs. I will split the total amount of lantus the patient has been requiring into an even BID split in an attempt to better even out BS throughout the day. It appears that the IV solumedrol 40mg IV BID will continue throughout the day. Scr remains elevated, but this has been consistent with most of the hospital stay. * Basal insulin: Lantus 29 units every 12 hours * Correctional Insulin: Novolog Correction per scale ACHS Goal Range: Low 110 mg/dL - High 140 mg/dL (except 0200 check) Correction Factor: 10 mg/dL/unit * Prandial insulin: Per carb ratio of 1 unit per 3 grams CHO consumed Pharmacy will continue to monitor patient daily and write orders per [facility] inpatient glycemic control protocol. Thanks. * Please note that the plan above was derived based on current level of insulin resistance and hospital stress. These recommendations are appropriate for inpatient admission only. Plan of care upon discharge will need to be reassessed to avoid potential outpatient hypo/hyperglycemia.
[2017-10-01] MEDS: WARFARIN SOD 4 MG TAB PO SCH (16:23)
[2017-10-01] MEDS: FUROSEMIDE 20 MG TAB PO SCH (16:23)
--- NOTE | 2017-10-01 16:54 | Progress Note ---
Medicine Progress Note Date & Time of Visit: Oct 01, 2017 at 10:42. Subjective Pt was seen and examined Sitting in chair with no distress Pt said that she feels a little better She said that her breathing seems to get better Denies any chest pain, palpitation, dizziness and fever Objective Last 8 Hrs Date Time Temp Pulse Resp B/P (MAP) Pulse Ox O2 Delivery O2 Flow Rate FiO2 10/01/17 16:05 Nasal Cannula 2.0 10/01/17 15:40 36.2 81 16 169/65 (99) 99 Nasal Cannula 2.0 10/01/17 15:23 81 16 98 Nasal Cannula 2.0 10/01/17 12:15 Nasal Cannula 2.0 10/01/17 12:00 Nasal Cannula 2.0 10/01/17 11:25 36.6 72 20 143/59 (87) 100 Nasal Cannula 2.0 10/01/17 11:07 79 16 99 Nasal Cannula 2.0 10/01/17 09:15 175/54 (94) Physical Exam: General- No acute distress Head- atraumatic Eyes- PERRL, EOMI ENT- oropharynx clear Neck- supple, no JVD Lungs- Decrease breath sound Heart- irregular rhythm; no murmur Abdomen- normal bowel sounds, soft Extremities- no calf tenderness Neuro- alert, oriented x 3; PERRL Skin- warm & dry Laboratory Results: Last 24 Hours Test 09/30/17 20:30 10/01/17 00:20 10/01/17 04:13 10/01/17 04:50 Bedside Glucose 83 mg/dl 152 mg/dl 155 mg/dl White Blood Count 5.78 K/uL Red Blood Count 3.42 M/uL Hemoglobin 10.6 g/dL Hematocrit 31.9 % Mean Corpuscular Volume 93.3 fL Mean Corpuscular Hemoglobin 31.0 pg Mean Corpuscular Hemoglobin Concent 33.2 g/dl RDW Standard Deviation 46.8 fL RDW Coefficient of Variation 13.8 % Platelet Count 126 K/uL Mean Platelet Volume 10.6 fL Prothrombin Time 26.5 SECONDS Prothromb Time International Ratio 2.6 Sodium Level 138 mmol/L Potassium Level 3.6 mmol/L Chloride Level 101 mmol/L Carbon Dioxide Level 28 mmol/L Anion Gap 9.0 mmol/L Blood Urea Nitrogen 69 mg/dl Creatinine 2.35 mg/dl Est Creatinine Clear Calc Drug Dose 23.1 ml/min Estimated GFR () 22.1 Estimated GFR (Non- 19.1 BUN/Creatinine Ratio 29.4 Random Glucose 156 mg/dl Calcium Level 8.7 mg/dl Test 10/01/17 06:59 10/01/17 11:23 Bedside Glucose 163 mg/dl 193 mg/dl Assessment & Plan 77 year old female with history of COPD, Nocturnal Hypoxemia, A fib on Coumadin , CAD, DM, HTN presenting with dyspnea ACUTE HYPOXIC RESPIRATORY FAILURE INFLUENZA A vs ACUTE DIASTOLIC CHF EXACERBATION vs COPD EXACERBATION Positive for influenza A Continue Tamiflu V/Q scan showed no perfusion defects to suggest pulmonary embolus. CXR showed mild central pulmonary vascular congestion without overt edema. On Solumedrol, will taper steroid Continue lasix 60mg BID Continue Neb treatment Will need CPAP as an outpatient as per pulmonary team Cardiology and pulmonary on board Clinically improved 2 step exercise on discharge 10/01 Transition to lasix 60mg PO BID solumedrol changed to prednisone 40mg daily continue Neb treatment will get a 2 step tomorrow Stable from pulmonary standpoint A FIB Rate controlled Continue PO Cardizem INR 2.6 today Continue Coumadin Monitor INR ACUTE RENAL FAILURE ON CKD 4 Creatine on admission 1.63 Received IVF Creatine was 2.3 today Continue monitor BMP Nephrology on board Case discussed with lucille recommended to change diuretic to oral HTN BP has been elevated On losartan/imdur/cardizem Starting on amlodipine 5 mg daily and lasix 60mg BID continue monitor BP DM type 2 Most recent Hba1c 7.4 Continue Lantus Pharmacy on board for glycemic control UTI Urine cx positive for Klebsiella pna complete course of Rocephin CAD continue ASA DVT Px on Coumadin INR 2.6 CODE STATUS FULL CODE DISPOSITION Will discharge home once medically stable Consultants: Maribell Current Inpatient Medications: Current Inpatient Medications Medications (Trade) Dose Ordered Sig/Rose Route Start Time Stop Time Status Last Admin Dose Admin Acetaminophen (Tylenol Tab) 650 mg Q4H PRN PO 09/23/17 13:15 10/23/17 13:14 Al Hydrox/Mg Hydrox/Simethicone (Maalox Max Susp) 15 ml Q4H PRN PO 09/23/17 13:15 10/23/17 13:14 Magnesium Hydroxide (Milk Of Magnesia Susp) 30 ml Q12H PRN PO 09/23/17 13:15 10/23/17 13:14 Ondansetron HCl (Zofran Inj) 4 mg Q6H PRN IV 09/23/17 13:15 10/23/17 13:14 Nitroglycerin (Nitrostat Tab) 0.4 mg UD PRN SL 09/23/17 13:15 10/23/17 13:14 Aspirin (Ecotrin Tab) 81 mg QAM PO 09/24/17 09:00 10/24/17 08:59 10/01/17 08:10 81 MG Polyethylene (Miralax Powder Packet) 17 gm DAILY PRN PO 09/23/17 13:15 10/23/17 13:14 Ferrous Sulfate (Feosol Tab) 325 mg DAILY PO 09/24/17 09:00 10/24/17 08:59 10/01/17 08:10 325 MG Glucose (Glucose Chew Tab) 1 tab UD PRN PO 09/23/17 13:30 10/23/17 13:29 Isosorbide Mononitrate (Imdur Ext Rel Tab) 30 mg DAILY PO 09/24/17 09:00 10/24/17 08:59 10/01/17 08:12 30 MG Losartan Potassium (coZAAR TAB) 100 mg DAILY PO 09/24/17 09:00 10/24/17 08:59 Future Hold 09/25/17 08:51 100 MG Lovastatin (Mevacor Tab) 80 mg HS PO 09/23/17 21:00 10/23/17 20:59 09/30/17 20:37 80 MG Pantoprazole Sodium (Protonix Tab) 40 mg DAILY PO 09/24/17 09:00 10/24/17 08:59 10/01/17 08:12 40 MG Miscellaneous Information (Order Awaiting Action) 1 ea QS N/A 09/23/17 16:00 10/23/17 15:59 Glucose (Glucose 40% Gel) 15-30 GRAMS 15 GRAMS... UD PRN PO 09/23/17 13:30 10/23/17 13:29 Glucose (Glucose Chew Tab) 4-8 Tablets 4 Tabl... UD PRN PO 09/23/17 13:30 10/23/17 13:29 Dextrose (Dextrose 50% 50ML Syringe) 25-50ML OF 50% DW IV FOR... UD PRN IV 09/23/17 13:30 10/23/17 13:29 Glucagon (Glucagon Inj) 1 mg UD PRN SQ 09/23/17 13:30 10/23/17 13:29 Zolpidem Tartrate (Ambien Tab) 5 mg HS PRN PO 09/24/17 03:00 10/24/17 02:59 Calcitriol (Rocaltrol Cap) 0.5 mcg DAILY PO 09/25/17 09:00 10/25/17 08:59 10/01/17 08:10 0.5 MCG Potassium Chloride (Klor-Con Tab) 20 meq DAILY PO 09/25/17 09:00 10/25/17 08:59 10/01/17 08:12 20 MEQ Lactobacillus Acidophilus (Floranex Tab) 4 tab TIDM PO 09/26/17 11:30 10/26/17 11:29 10/01/17 16:23 4 TAB Ipratropium [place] (Atrovent 0.02% 0.5MG/2.5ML Neb) 0.5 mg Q4R INH 09/26/17 12:00 10/26/17 11:59 10/01/17 15:23 0.5 MG Levalbuterol (Xopenex 1.25MG/ 0.5ML Neb) 1.25 mg Q4R INH 09/26/17 12:00 10/26/17 11:59 10/01/17 15:22 1.25 MG Miscellaneous Information (Consult Glycemic Management Pharmacy) 1 ea UD PRN N/A 09/26/17 11:30 10/26/17 11:29 Guaifenesin (Mucinex Contr Rel Tab) 600 mg Q12 PO 09/27/17 21:00 10/27/17 20:59 10/01/17 08:12 600 MG Insulin Aspart (novoLOG ASPART) ACHS SC 09/28/17 11:00 10/28/17 10:59 10/01/17 12:02 24 UNITS Warfarin Sodium (Coumadin Tab) 4 mg SuTuTh@1600 PO 09/29/17 16:00 10/29/17 15:59 10/01/17 16:23 4 MG Warfarin Sodium (Coumadin Tab) 2 mg MoWeFrSa@1600 PO 09/28/17 16:00 10/28/17 15:59 09/30/17 16:16 2 MG Methylprednisolone Sodium Succinate 40 mg/Syringe 0.64 ml @ 1.5 mls/min BID IV 09/29/17 21:00 10/25/17 12:59 10/01/17 08:11 1.5 MLS/MIN Diltiazem HCl (Cardizem Cd Cap) 180 mg BID PO 09/30/17 21:00 10/30/17 20:59 10/01/17 08:13 180 MG Insulin Glargine (Lantus Solostar Pen) 29 units BID SQ 10/01/17 09:00 10/31/17 08:59 10/01/17 08:09 29 UNITS Amlodipine Besylate (Norvasc Tab) 5 mg HS PO 10/01/17 21:00 10/31/17 20:59 Furosemide (Lasix Tab) 60 mg BID17 PO 10/01/17 17:00 10/31/17 16:59 10/01/17 16:23 60 MG Insulin Aspart (novoLOG ASPART) SLIDING SCALE 0200 SC 10/02/17 02:00 11/01/17 01:59
--- NOTE | 2017-10-01 20:37 | Nephrology Progress Note ---
Nephrology Progress Note Date of Service: Oct 01, 2017. Subjective up in chair; ongoing anxiety / sob > some improvement in sx. per pulm hypoxia may not be so new/different from baseline or unexpected in flu wake Objective Date Time Temp Pulse Resp B/P (MAP) Pulse Ox O2 Delivery O2 Flow Rate FiO2 10/01/17 07:23 79 16 95 Nasal Cannula 2.0 10/01/17 07:16 36.5 88 20 180/83 (115) 98 Nasal Cannula 2.0 10/01/17 04:05 36.8 87 17 154/59 (90) 96 Nasal Cannula 2.0 10/01/17 04:00 Nasal Cannula 2.0 10/01/17 00:00 Nasal Cannula 2.0 09/30/17 23:33 36.4 95 19 188/77 (114) 98 Nasal Cannula 2.0 09/30/17 22:55 77 16 95 Nasal Cannula 2.0 09/30/17 20:48 36.5 90 18 162/70 (100) 96 Nasal Cannula 2.0 09/30/17 20:00 96 Nasal Cannula 2.0 09/30/17 19:51 84 16 97 Nasal Cannula 2.0 09/30/17 16:24 36.5 93 18 174/67 (102) 100 Nasal Cannula 2.0 09/30/17 16:00 100 Nasal Cannula 2.0 09/30/17 14:50 88 16 96 Nasal Cannula 2.0 09/30/17 12:27 Nasal Cannula 3.0 09/30/17 11:22 36.5 87 22 165/51 (89) 100 Nasal Cannula 09/30/17 10:40 85 16 97 Nasal Cannula 2.0 Physical Exam: GENERAL: Elderly white female up in chair on 3L 02NC; today minimal dyspnea w/ speech. Awake, alert, oriented x3. HEENT: Mucous membranes moist. NECK: Supple CHEST: Bilateral decreased breath sounds mariela bases CARDIOVASCULAR: irregularly irregular w/o mr ABDOMEN: Soft and nontender, obese. no funes EXTREMITIES: 1-2+ pedal edema, trace edema BL ankles NEURO: cardenas, fluent speech, at times anxious Current Inpatient Medications Medications (Trade) Dose Ordered Sig/Rose Route Start Time Stop Time Status Last Admin Dose Admin Acetaminophen (Tylenol Tab) 650 mg Q4H PRN PO 09/23/17 13:15 10/23/17 13:14 Al Hydrox/Mg Hydrox/Simethicone (Maalox Max Susp) 15 ml Q4H PRN PO 09/23/17 13:15 10/23/17 13:14 Magnesium Hydroxide (Milk Of Magnesia Susp) 30 ml Q12H PRN PO 09/23/17 13:15 10/23/17 13:14 Ondansetron HCl (Zofran Inj) 4 mg Q6H PRN IV 09/23/17 13:15 10/23/17 13:14 Nitroglycerin (Nitrostat Tab) 0.4 mg UD PRN SL 09/23/17 13:15 10/23/17 13:14 Aspirin (Ecotrin Tab) 81 mg QAM PO 09/24/17 09:00 10/24/17 08:59 10/01/17 08:10 81 MG Polyethylene (Miralax Powder Packet) 17 gm DAILY PRN PO 09/23/17 13:15 10/23/17 13:14 Ferrous Sulfate (Feosol Tab) 325 mg DAILY PO 09/24/17 09:00 10/24/17 08:59 10/01/17 08:10 325 MG Glucose (Glucose Chew Tab) 1 tab UD PRN PO 09/23/17 13:30 10/23/17 13:29 Isosorbide Mononitrate (Imdur Ext Rel Tab) 30 mg DAILY PO 09/24/17 09:00 10/24/17 08:59 10/01/17 08:12 30 MG Losartan Potassium (coZAAR TAB) 100 mg DAILY PO 09/24/17 09:00 10/24/17 08:59 Future Hold 09/25/17 08:51 100 MG Lovastatin (Mevacor Tab) 80 mg HS PO 09/23/17 21:00 10/23/17 20:59 09/30/17 20:37 80 MG Pantoprazole Sodium (Protonix Tab) 40 mg DAILY PO 09/24/17 09:00 10/24/17 08:59 10/01/17 08:12 40 MG Miscellaneous Information (Order Awaiting Action) 1 ea QS N/A 09/23/17 16:00 10/23/17 15:59 Glucose (Glucose 40% Gel) 15-30 GRAMS 15 GRAMS... UD PRN PO 09/23/17 13:30 10/23/17 13:29 Glucose (Glucose Chew Tab) 4-8 Tablets 4 Tabl... UD PRN PO 09/23/17 13:30 10/23/17 13:29 Dextrose (Dextrose 50% 50ML Syringe) 25-50ML OF 50% DW IV FOR... UD PRN IV 09/23/17 13:30 10/23/17 13:29 Glucagon (Glucagon Inj) 1 mg UD PRN SQ 09/23/17 13:30 10/23/17 13:29 Zolpidem Tartrate (Ambien Tab) 5 mg HS PRN PO 09/24/17 03:00 10/24/17 02:59 Calcitriol (Rocaltrol Cap) 0.5 mcg DAILY PO 09/25/17 09:00 10/25/17 08:59 10/01/17 08:10 0.5 MCG Potassium Chloride (Klor-Con Tab) 20 meq DAILY PO 09/25/17 09:00 10/25/17 08:59 10/01/17 08:12 20 MEQ Lactobacillus Acidophilus (Floranex Tab) 4 tab TIDM PO 09/26/17 11:30 10/26/17 11:29 10/01/17 08:10 4 TAB Ipratropium [place] (Atrovent 0.02% 0.5MG/2.5ML Neb) 0.5 mg Q4R INH 09/26/17 12:00 10/26/17 11:59 10/01/17 07:23 0.5 MG Levalbuterol (Xopenex 1.25MG/ 0.5ML Neb) 1.25 mg Q4R INH 09/26/17 12:00 10/26/17 11:59 10/01/17 07:23 1.25 MG Miscellaneous Information (Consult Glycemic Management Pharmacy) 1 ea UD PRN N/A 09/26/17 11:30 10/26/17 11:29 Guaifenesin (Mucinex Contr Rel Tab) 600 mg Q12 PO 09/27/17 21:00 10/27/17 20:59 10/01/17 08:12 600 MG Furosemide 60 mg/ Syringe 6 ml @ 4 mls/min BID17 IV 09/27/17 16:00 10/27/17 15:59 10/01/17 08:11 4 MLS/MIN Insulin Aspart (novoLOG ASPART) ACHS SC 09/28/17 11:00 10/28/17 10:59 10/01/17 08:09 15 UNITS Warfarin Sodium (Coumadin Tab) 4 mg SuTuTh@1600 PO 09/29/17 16:00 10/29/17 15:59 09/29/17 16:47 4 MG Warfarin Sodium (Coumadin Tab) 2 mg MoWeFrSa@1600 PO 09/28/17 16:00 10/28/17 15:59 09/30/17 16:16 2 MG Methylprednisolone Sodium Succinate 40 mg/Syringe 0.64 ml @ 1.5 mls/min BID IV 09/29/17 21:00 10/25/17 12:59 10/01/17 08:11 1.5 MLS/MIN Diltiazem HCl (Cardizem Cd Cap) 180 mg BID PO 09/30/17 21:00 10/30/17 20:59 10/01/17 08:13 180 MG Insulin Glargine (Lantus Solostar Pen) 29 units BID SQ 10/01/17 09:00 10/31/17 08:59 10/01/17 08:09 29 UNITS Last 24 Hours Test 09/30/17 11:08 09/30/17 16:39 09/30/17 20:30 10/01/17 00:20 Bedside Glucose 192 mg/dl 101 mg/dl 83 mg/dl 152 mg/dl Test 10/01/17 04:13 10/01/17 04:50 10/01/17 06:59 Bedside Glucose 155 mg/dl 163 mg/dl White Blood Count 5.78 K/uL Red Blood Count 3.42 M/uL Hemoglobin 10.6 g/dL Hematocrit 31.9 % Mean Corpuscular Volume 93.3 fL Mean Corpuscular Hemoglobin 31.0 pg Mean Corpuscular Hemoglobin Concent 33.2 g/dl RDW Standard Deviation 46.8 fL RDW Coefficient of Variation 13.8 % Platelet Count 126 K/uL Mean Platelet Volume 10.6 fL Prothrombin Time 26.5 SECONDS Prothromb Time International Ratio 2.6 Sodium Level 138 mmol/L Potassium Level 3.6 mmol/L Chloride Level 101 mmol/L Carbon Dioxide Level 28 mmol/L Anion Gap 9.0 mmol/L Blood Urea Nitrogen 69 mg/dl Creatinine 2.35 mg/dl Est Creatinine Clear Calc Drug Dose 23.1 ml/min Estimated GFR () 22.1 Estimated GFR (Non- 19.1 BUN/Creatinine Ratio 29.4 Random Glucose 156 mg/dl Calcium Level 8.7 mg/dl Assessment & Plan 77-year-old female who presented 09/23 with shortness of breath, most likely from influenza, as well as atrial fibrillation with rapid ventricular response and diastolic congestive heart failure. We are following for acute renal failure on background chronic kidney disease III, baseline creatinine mid/high ones. Acute renal failure on CKD3 >>nonoliguric ischemic ATN, not surprising that in the context of influenza, congestive heart failure, atrial fibrillation with rapid ventricular response >> she has volume overload w/ cardiorenal syndrome; improving volume status; creatinine for first time in several days bumped up and will scale back lasix; she has been strongly negative (about 1.5L daily) x 3 days; wts not changing much however -no further diagnostic work up needed -continue daily standing weights; plan to continue these at d/c as well -cont to limit po fluids to 1.5L; cont < 2 gm daily Na diet -needs daily bmp -cont strict I/O >>>cont current K suppls despite lower lasix Hypertension -uncontrolled in hospital >>>>added 5 mg amlodipine HS >>>changed lasix to po 60 mg bid >>>would cont to hold ARB at d/c; restart in clinic / as outpt if renal function stable >>>will query cardiology whether Bblockade ok for her Appreciate consult; will follow w/ you. Care coordinated w/ Dr. Gibson
[2017-10-01] MEDS: LOVASTATIN 20 MG TAB PO SCH (21:06)
[2017-10-01] MEDS: AMLODIPINE BESYLATE 5 MG TAB PO SCH (21:07)
[2017-10-02] VITALS (16 sets, daily range): BP systolic 149–189; BP diastolic 48–73; PULSE 70–91; TEMP 36.4–37.1; O2SAT 87–99
[2017-10-02] MEDS: INSULIN ASPART 100 UNITS/ML 3 ML PEN SC SCH ×5 (01:50→20:39)
[2017-10-02] MEDS: IPRATROPIUM BROMIDE NEB SOLN 0.02% 2.5 ML VIAL INH SCH ×6 (03:41→23:03)
[2017-10-02] MEDS: LEVALBUTEROL 1.25MG/0.5ML NEB INH SCH ×6 (03:41→23:03)
[2017-10-02 04:28] LABS: BASO % 0.2 %; BASO ABS # 0.01 K/uL (0-0.2); EOS % 0.2 %; EOS ABS # 0.01 K/uL (0-0.5); HEMATOCRIT 30.4 % (37-47); HEMOGLOBIN 10.1 g/dL (12.0-16.0); IG# 0.13 K/uL (0.00-0.02); LYMPH % 9.9 %; LYMPH ABS # 0.53 K/uL (1.2-3.4); MEAN CORPUSCULAR HEMOGLOBIN 30.9 pg (25-34); MEAN CORPUSCULAR HGB CONC 33.2 g/dl (32-36); MEAN PLATELET VOLUME 10.3 fL (7.4-10.4); MONO % 6.7 %; MONO ABS # 0.36 K/uL (0.11-0.59); NEUT % 80.6 %; NEUT ABS # 4.32 K/uL (1.4-6.5); NUCLEATED RED BLOOD CELL ABS 0.04 K/uL (0-0); PLATELET COUNT 121 K/uL (130-400); RED CELL DISTRIBUTION WIDTH CV 13.9 % (11.5-14.5); RED CELL DISTRIBUTION WIDTH SD 46.8 fL (36.4-46.3); WHITE BLOOD COUNT 5.36 K/uL (4.8-10.8)
[2017-10-02 04:45] LABS: INR 2.9 (0.9-1.1)
[2017-10-02 04:55] LABS: CALCIUM 8.6 mg/dl (8.5-10.1); CREATININE 2.35 mg/dl (0.60-1.20); POTASSIUM 3.7 mmol/L (3.5-5.1)
[2017-10-02] MEDS ORDERED: PHYTONADIONE 5 MG TAB PO STA (05:18)
--- NOTE | 2017-10-02 05:20 | Progress Note ---
Internal Med Progress Note Date of Service: Oct 02, 2017. Provider Documentation: Made aware by RN of intermittent epistaxis episodes. Hemoglobin stable at 10 INR 2.9 Hold Aspirin and Coumadin for now Trend H&H Vitamin K PO 1 dose Will relay to a.m. provider. Vital Signs: Date Time Temp Pulse Resp B/P (MAP) Pulse Ox O2 Delivery O2 Flow Rate FiO2 10/02/17 04:29 37.1 87 19 149/58 (88) 98 Nasal Cannula 2.0 10/02/17 04:00 Nasal Cannula 2.0 10/02/17 01:05 164/58 (93) 10/02/17 01:01 36.8 85 20 189/66 (107) 98 Nasal Cannula 188/73 (111) 10/02/17 00:00 Nasal Cannula 2.0 10/01/17 23:20 89 16 99 Nasal Cannula 2.0 10/01/17 20:27 36.5 88 20 158/68 (98) 97 Nasal Cannula 3.0 Humidified Oxygen 10/01/17 20:00 97 Nasal Cannula 2.0 10/01/17 19:23 101 18 98 Nasal Cannula 2.0 10/01/17 16:05 Nasal Cannula 2.0 10/01/17 16:00 99 Nasal Cannula 2.0 10/01/17 15:40 36.2 81 16 169/65 (99) 99 Nasal Cannula 2.0 10/01/17 15:23 81 16 98 Nasal Cannula 2.0 10/01/17 12:15 Nasal Cannula 2.0 10/01/17 12:00 Nasal Cannula 2.0 10/01/17 11:25 36.6 72 20 143/59 (87) 100 Nasal Cannula 2.0 10/01/17 11:07 79 16 99 Nasal Cannula 2.0 10/01/17 09:15 175/54 (94) 10/01/17 08:00 Nasal Cannula 2.0 Lab Results: Results Past 24 Hours Test 10/01/17 11:23 10/01/17 16:08 10/01/17 21:18 10/02/17 01:48 Range/Units Bedside Glucose 193 79 182 144 70-90 mg/dl Test 10/02/17 04:15 10/02/17 06:24 Range/Units White Blood Count 5.36 4.8-10.8 K/uL Red Blood Count 3.27 4.2-5.4 M/uL Hemoglobin 10.1 12.0-16.0 g/dL Hematocrit 30.4 37-47 % Mean Corpuscular Volume 93.0 80-100 fL Mean Corpuscular Hemoglobin 30.9 25-34 pg Mean Corpuscular Hemoglobin Concent 33.2 32-36 g/dl Platelet Count 121 130-400 K/uL Mean Platelet Volume 10.3 7.4-10.4 fL Neutrophils (%) (Auto) 80.6 % Lymphocytes (%) (Auto) 9.9 % Monocytes (%) (Auto) 6.7 % Eosinophils (%) (Auto) 0.2 % Basophils (%) (Auto) 0.2 % Neutrophils # (Auto) 4.32 1.4-6.5 K/uL Lymphocytes # (Auto) 0.53 1.2-3.4 K/uL Monocytes # (Auto) 0.36 0.11-0.59 K/uL Eosinophils # (Auto) 0.01 0-0.5 K/uL Basophils # (Auto) 0.01 0-0.2 K/uL RDW Standard Deviation 46.8 36.4-46.3 fL RDW Coefficient of Variation 13.9 11.5-14.5 % Immature Granulocyte % (Auto) 2.4 % Immature Granulocyte # (Auto) 0.13 0.00-0.02 K/uL Nucleated RBC Absolute Count (auto) 0.04 0-0 K/uL Nucleated Red Blood Cells % 0.7 % Prothrombin Time 29.6 9.0-12.0 SECONDS Prothromb Time International Ratio 2.9 0.9-1.1 Sodium Level 138 136-145 mmol/L Potassium Level 3.7 3.5-5.1 mmol/L Chloride Level 102 98-107 mmol/L Carbon Dioxide Level 28 21-32 mmol/L Anion Gap 8.0 3-11 mmol/L Blood Urea Nitrogen 75 7-18 mg/dl Creatinine 2.35 0.60-1.20 mg/dl Est Creatinine Clear Calc Drug Dose 23.0 ml/min Estimated GFR () 22.1 Estimated GFR (Non- 19.1 BUN/Creatinine Ratio 31.9 10-20 Random Glucose 107 70-99 mg/dl Calcium Level 8.6 8.5-10.1 mg/dl Bedside Glucose 95 70-90 mg/dl
[2017-10-02] MEDS: DILTIAZEM HCL 180 MG CAPCR PO SCH ×2 (08:26→20:34)
[2017-10-02] MEDS: POTASSIUM CHLORIDE 20 MEQ TABCR PO SCH (08:26)
[2017-10-02] MEDS: LACTOBACILLUS ACIDOPHILUS (FLORANEX) TAB PO SCH ×3 (08:26→17:30)
[2017-10-02] MEDS: FUROSEMIDE 20 MG TAB PO SCH ×2 (08:26→17:30)
[2017-10-02] MEDS: ISOSORBIDE MONONITRATE 30 MG TABCR PO SCH (08:26)
[2017-10-02] MEDS: FERROUS SULFATE 325 MG TAB PO SCH (08:26)
[2017-10-02] MEDS: GUAIFENESIN 600 MG TABCR PO SCH ×2 (08:26→20:32)
[2017-10-02] MEDS: PANTOprazole SOD 40 MG TAB PO SCH (08:27)
[2017-10-02] MEDS: CALCITRIOL 0.25 MCG CAP PO SCH (08:27)
[2017-10-02] MEDS: INSULIN GLARGINE SOLOSTAR 100 UNITS/ML 3 ML PEN SQ SCH ×2 (08:32→20:40)
[2017-10-02 12:39] LABS: HEMATOCRIT 34.1 % (37-47); HEMOGLOBIN 11.3 g/dL (12.0-16.0)
--- NOTE | 2017-10-02 14:36 | Progress Note ---
Subjective Date of Service: Oct 02, 2017. Subjective This is a 77-year-old female who was admitted with influenza. She has a history of diastolic heart failure which resulted in acute exacerbation. She also has atrial fibrillation. The patient continues to be diuresis with the help of nephrology. She does however, remain hypertensive and nephrology as asked us if a beta joe would be appropriate. She is currently on 2 calcium channel blockers, diltiazem and amlodipine. We could try carvedilol which would provide the beta-blocking effects along with additional antihypertensive treatment. We'll start her on a low dose and titrate up. At the same time we may have to either lower the dose of diltiazem or possibly discontinue this medication altogether. The patient is currently resting comfortably in the chair. Problem List Medical Problems: (1) Acute kidney injury Status: Acute (2) KARLEE (acute kidney injury) Status: Acute (3) Anxiety attack Status: Acute (4) Atrial fibrillation with rapid ventricular response Status: Acute (5) Atypical chest pain Status: Acute (6) Bronchitis Status: Acute (7) Candidal intertrigo Status: Acute (8) COPD exacerbation Status: Acute (9) COPD exacerbation Status: Acute (10) Hyperventilation Status: Acute (11) Left sided chest pain Status: Acute (12) Pneumonia Status: Acute (13) Shortness of breath Status: Acute (14) Substernal chest pain Status: Acute (15) Substernal chest pain Status: Acute (16) UTI (urinary tract infection) Status: Acute (17) Weakness Status: Acute Review of Systems All Other Systems: Reviewed and Negative Medications Current Inpatient Medications Medications (Trade) Dose Ordered Sig/Rose Route Start Time Stop Time Status Last Admin Dose Admin Acetaminophen (Tylenol Tab) 650 mg Q4H PRN PO 09/23/17 13:15 10/23/17 13:14 Al Hydrox/Mg Hydrox/Simethicone (Maalox Max Susp) 15 ml Q4H PRN PO 09/23/17 13:15 10/23/17 13:14 Magnesium Hydroxide (Milk Of Magnesia Susp) 30 ml Q12H PRN PO 09/23/17 13:15 10/23/17 13:14 Ondansetron HCl (Zofran Inj) 4 mg Q6H PRN IV 09/23/17 13:15 10/23/17 13:14 Nitroglycerin (Nitrostat Tab) 0.4 mg UD PRN SL 09/23/17 13:15 10/23/17 13:14 Aspirin (Ecotrin Tab) 81 mg QAM PO 09/24/17 09:00 10/24/17 08:59 Future Hold 10/01/17 08:10 81 MG Polyethylene (Miralax Powder Packet) 17 gm DAILY PRN PO 09/23/17 13:15 10/23/17 13:14 Ferrous Sulfate (Feosol Tab) 325 mg DAILY PO 09/24/17 09:00 10/24/17 08:59 10/02/17 08:26 325 MG Glucose (Glucose Chew Tab) 1 tab UD PRN PO 09/23/17 13:30 10/23/17 13:29 Isosorbide Mononitrate (Imdur Ext Rel Tab) 30 mg DAILY PO 09/24/17 09:00 10/24/17 08:59 10/02/17 08:26 30 MG Losartan Potassium (coZAAR TAB) 100 mg DAILY PO 09/24/17 09:00 10/24/17 08:59 Future Hold 09/25/17 08:51 100 MG Lovastatin (Mevacor Tab) 80 mg HS PO 09/23/17 21:00 10/23/17 20:59 10/01/17 21:06 80 MG Pantoprazole Sodium (Protonix Tab) 40 mg DAILY PO 09/24/17 09:00 10/24/17 08:59 10/02/17 08:27 40 MG Miscellaneous Information (Order Awaiting Action) 1 ea QS N/A 09/23/17 16:00 10/23/17 15:59 Glucose (Glucose 40% Gel) 15-30 GRAMS 15 GRAMS... UD PRN PO 09/23/17 13:30 10/23/17 13:29 Glucose (Glucose Chew Tab) 4-8 Tablets 4 Tabl... UD PRN PO 09/23/17 13:30 10/23/17 13:29 Dextrose (Dextrose 50% 50ML Syringe) 25-50ML OF 50% DW IV FOR... UD PRN IV 09/23/17 13:30 10/23/17 13:29 Glucagon (Glucagon Inj) 1 mg UD PRN SQ 09/23/17 13:30 10/23/17 13:29 Zolpidem Tartrate (Ambien Tab) 5 mg HS PRN PO 09/24/17 03:00 10/24/17 02:59 Calcitriol (Rocaltrol Cap) 0.5 mcg DAILY PO 09/25/17 09:00 10/25/17 08:59 10/02/17 08:27 0.5 MCG Potassium Chloride (Klor-Con Tab) 20 meq DAILY PO 09/25/17 09:00 10/25/17 08:59 10/02/17 08:26 20 MEQ Lactobacillus Acidophilus (Floranex Tab) 4 tab TIDM PO 09/26/17 11:30 10/26/17 11:29 10/02/17 11:58 4 TAB Ipratropium [place] (Atrovent 0.02% 0.5MG/2.5ML Neb) 0.5 mg Q4R INH 09/26/17 12:00 10/26/17 11:59 10/02/17 11:39 0.5 MG Levalbuterol (Xopenex 1.25MG/ 0.5ML Neb) 1.25 mg Q4R INH 09/26/17 12:00 10/26/17 11:59 10/02/17 11:39 1.25 MG Miscellaneous Information (Consult Glycemic Management Pharmacy) 1 ea UD PRN N/A 09/26/17 11:30 10/26/17 11:29 Guaifenesin (Mucinex Contr Rel Tab) 600 mg Q12 PO 09/27/17 21:00 10/27/17 20:59 10/02/17 08:26 600 MG Insulin Aspart (novoLOG ASPART) ACHS SC 09/28/17 11:00 10/28/17 10:59 10/02/17 11:59 9 UNITS Warfarin Sodium (Coumadin Tab) 4 mg SuTuTh@1600 PO 09/29/17 16:00 10/29/17 15:59 Future Hold 10/01/17 16:23 4 MG Warfarin Sodium (Coumadin Tab) 2 mg MoWeFrSa@1600 PO 09/28/17 16:00 10/28/17 15:59 Future Hold 09/30/17 16:16 2 MG Diltiazem HCl (Cardizem Cd Cap) 180 mg BID PO 09/30/17 21:00 10/30/17 20:59 10/02/17 08:26 180 MG Amlodipine Besylate (Norvasc Tab) 5 mg HS PO 10/01/17 21:00 10/31/17 20:59 10/01/17 21:07 5 MG Furosemide (Lasix Tab) 60 mg BID17 PO 10/01/17 17:00 10/31/17 16:59 10/02/17 08:26 60 MG Insulin Aspart (novoLOG ASPART) SLIDING SCALE 0200 SC 10/02/17 02:00 11/01/17 01:59 Prednisone (PredniSONE TAB) 40 mg DAILY PO 10/02/17 09:00 11/01/17 08:59 10/02/17 08:27 40 MG Insulin Glargine (Lantus Solostar Pen) see protocol BID SQ 10/02/17 21:00 11/01/17 20:59 Objective Vital Signs Date Time Temp Pulse Resp B/P (MAP) Pulse Ox O2 Delivery O2 Flow Rate FiO2 10/02/17 12:06 98 Nasal Cannula 2.0 10/02/17 11:25 36.4 80 20 174/67 (102) 99 10/02/17 11:05 75 16 99 Room Air 10/02/17 08:01 98 Nasal Cannula 2.0 10/02/17 07:16 36.9 86 20 150/53 (85) 98 Nasal Cannula 2.0 10/02/17 07:14 76 16 98 Nasal Cannula 2.0 10/02/17 04:29 37.1 87 19 149/58 (88) 98 Nasal Cannula 2.0 10/02/17 04:00 Nasal Cannula 2.0 10/02/17 01:05 164/58 (93) 10/02/17 01:01 36.8 85 20 189/66 (107) 98 Nasal Cannula 188/73 (111) 10/02/17 00:00 Nasal Cannula 2.0 10/01/17 23:20 89 16 99 Nasal Cannula 2.0 10/01/17 20:27 36.5 88 20 158/68 (98) 97 Nasal Cannula 3.0 Humidified Oxygen 10/01/17 20:00 97 Nasal Cannula 2.0 10/01/17 19:23 101 18 98 Nasal Cannula 2.0 10/01/17 16:05 Nasal Cannula 2.0 2/1/18 16:00 99 Nasal Cannula 2.0 10/01/17 15:40 36.2 81 16 169/65 (99) 99 Nasal Cannula 2.0 10/01/17 15:23 81 16 98 Nasal Cannula 2.0 Physical Exam General Appearance: no apparent distress Eyes: normal inspection ENT: normal ENT inspection Neck: supple, no adenopathy, no JVD Respiratory/Chest: chest non-tender, lungs clear, normal breath sounds Cardiovascular: no edema, no gallop, no murmur, + irregularly irregular Abdomen: normal bowel sounds, non tender, soft Extremities: normal range of motion, non-tender, normal inspection, no pedal edema Neurologic/Psychiatric: health insurance adjuster II-XII nml as tested, no motor/sensory deficits, oriented x 3 Skin: normal color, warm/dry, no rash Lymphatic: no adenopathy Laboratory Results Last 24 Hours Test 10/01/17 16:08 10/01/17 21:18 10/02/17 01:48 10/02/17 04:15 Bedside Glucose 79 mg/dl 182 mg/dl 144 mg/dl White Blood Count 5.36 K/uL Red Blood Count 3.27 M/uL Hemoglobin 10.1 g/dL Hematocrit 30.4 % Mean Corpuscular Volume 93.0 fL Mean Corpuscular Hemoglobin 30.9 pg Mean Corpuscular Hemoglobin Concent 33.2 g/dl Platelet Count 121 K/uL Mean Platelet Volume 10.3 fL Neutrophils (%) (Auto) 80.6 % Lymphocytes (%) (Auto) 9.9 % Monocytes (%) (Auto) 6.7 % Eosinophils (%) (Auto) 0.2 % Basophils (%) (Auto) 0.2 % Neutrophils # (Auto) 4.32 K/uL Lymphocytes # (Auto) 0.53 K/uL Monocytes # (Auto) 0.36 K/uL Eosinophils # (Auto) 0.01 K/uL Basophils # (Auto) 0.01 K/uL RDW Standard Deviation 46.8 fL RDW Coefficient of Variation 13.9 % Immature Granulocyte % (Auto) 2.4 % Immature Granulocyte # (Auto) 0.13 K/uL Nucleated RBC Absolute Count (auto) 0.04 K/uL Nucleated Red Blood Cells % 0.7 % Prothrombin Time 29.6 SECONDS Prothromb Time International Ratio 2.9 Sodium Level 138 mmol/L Potassium Level 3.7 mmol/L Chloride Level 102 mmol/L Carbon Dioxide Level 28 mmol/L Anion Gap 8.0 mmol/L Blood Urea Nitrogen 75 mg/dl Creatinine 2.35 mg/dl Est Creatinine Clear Calc Drug Dose 23.0 ml/min Estimated GFR () 22.1 Estimated GFR (Non- 19.1 BUN/Creatinine Ratio 31.9 Random Glucose 107 mg/dl Calcium Level 8.6 mg/dl Test 10/02/17 06:24 10/02/17 11:24 10/02/17 12:04 Bedside Glucose 95 mg/dl 107 mg/dl Hemoglobin 11.3 g/dL Hematocrit 34.1 % Assessment and Plan Impression: 1. Acute on chronic diastolic heart failure 2. Atrial fibrillation 3. Influenza 4. Acute on chronic renal failure Recommendations: As mentioned above I will start carvedilol today. After starting this medication further adjustments may have to be made to the diltiazem.
--- NOTE | 2017-10-02 14:46 | Pharmacy Progress Note ---
Glycemic: Assessment & Plan Date of Service Oct 02, 2017. Assessment & Plan The patient's BS have improved upon lantus 29 BID. However, steroids were cut late yesterday from 40mg q12 (only received one dose yesterday) to prednisone 40mg starting this morning. * Basal insulin: Lantus 29 units this morning followed by a more conservative scale at night based on BS, given the reduction in steroids. * Correctional Insulin: Novolog Correction per scale ACHS Goal Range: Low 110 mg/dL - High 140 mg/dL Correction Factor: 10 mg/dL/unit * Prandial insulin: Per carb ratio of 1 unit per 3 grams CHO consumed Pharmacy will continue to monitor patient daily and write orders per [facility] inpatient glycemic control protocol. Thanks. * Please note that the plan above was derived based on current level of insulin resistance and hospital stress. These recommendations are appropriate for inpatient admission only. Plan of care upon discharge will need to be reassessed to avoid potential outpatient hypo/hyperglycemia.
--- NOTE | 2017-10-02 17:28 | Progress Note ---
Medicine Progress Note Date & Time of Visit: Oct 02, 2017 at 11:15. Subjective Pt was seen and examined Sitting in bed with no distress Pt has an episode of epistaxis last night She was on saturated well on RA Pt said that her breathing a little better today Denies any chest pain, palpitation, dizziness and fever Objective Last 8 Hrs Date Time Temp Pulse Resp B/P (MAP) Pulse Ox O2 Delivery O2 Flow Rate FiO2 10/02/17 16:25 98 Nasal Cannula 2.0 10/02/17 15:49 36.5 83 19 167/58 (94) 97 Room Air 10/02/17 15:30 70 16 98 Room Air 10/02/17 12:06 98 Nasal Cannula 2.0 10/02/17 11:25 36.4 80 20 174/67 (102) 99 10/02/17 11:05 75 16 99 Room Air Physical Exam: General- No acute distress Head- atraumatic Eyes- PERRL, EOMI ENT- oropharynx clear Neck- supple, no JVD Lungs- Decrease breath sound Heart- irregular rhythm; no murmur Abdomen- normal bowel sounds, soft Extremities- no calf tenderness Neuro- alert, oriented x 3; PERRL Skin- warm & dry Laboratory Results: Last 24 Hours Test 10/01/17 21:18 10/02/17 01:48 10/02/17 04:15 10/02/17 06:24 Bedside Glucose 182 mg/dl 144 mg/dl 95 mg/dl White Blood Count 5.36 K/uL Red Blood Count 3.27 M/uL Hemoglobin 10.1 g/dL Hematocrit 30.4 % Mean Corpuscular Volume 93.0 fL Mean Corpuscular Hemoglobin 30.9 pg Mean Corpuscular Hemoglobin Concent 33.2 g/dl Platelet Count 121 K/uL Mean Platelet Volume 10.3 fL Neutrophils (%) (Auto) 80.6 % Lymphocytes (%) (Auto) 9.9 % Monocytes (%) (Auto) 6.7 % Eosinophils (%) (Auto) 0.2 % Basophils (%) (Auto) 0.2 % Neutrophils # (Auto) 4.32 K/uL Lymphocytes # (Auto) 0.53 K/uL Monocytes # (Auto) 0.36 K/uL Eosinophils # (Auto) 0.01 K/uL Basophils # (Auto) 0.01 K/uL RDW Standard Deviation 46.8 fL RDW Coefficient of Variation 13.9 % Immature Granulocyte % (Auto) 2.4 % Immature Granulocyte # (Auto) 0.13 K/uL Nucleated RBC Absolute Count (auto) 0.04 K/uL Nucleated Red Blood Cells % 0.7 % Prothrombin Time 29.6 SECONDS Prothromb Time International Ratio 2.9 Sodium Level 138 mmol/L Potassium Level 3.7 mmol/L Chloride Level 102 mmol/L Carbon Dioxide Level 28 mmol/L Anion Gap 8.0 mmol/L Blood Urea Nitrogen 75 mg/dl Creatinine 2.35 mg/dl Est Creatinine Clear Calc Drug Dose 23.0 ml/min Estimated GFR () 22.1 Estimated GFR (Non- 19.1 BUN/Creatinine Ratio 31.9 Random Glucose 107 mg/dl Calcium Level 8.6 mg/dl Test 10/02/17 11:24 10/02/17 12:04 10/02/17 16:43 10/02/17 16:44 Bedside Glucose 107 mg/dl 56 mg/dl 58 mg/dl Hemoglobin 11.3 g/dL Hematocrit 34.1 % Assessment & Plan 77 year old female with history of COPD, Nocturnal Hypoxemia, A fib on Coumadin , CAD, DM, HTN presenting with dyspnea ACUTE HYPOXIC RESPIRATORY FAILURE INFLUENZA A vs ACUTE DIASTOLIC CHF EXACERBATION vs COPD EXACERBATION Positive for influenza A Continue Tamiflu V/Q scan showed no perfusion defects to suggest pulmonary embolus. CXR showed mild central pulmonary vascular congestion without overt edema. On Solumedrol, will taper steroid Continue lasix 60mg BID Continue Neb treatment Will need CPAP as an outpatient as per pulmonary team Cardiology and pulmonary on board Clinically improved 2 step exercise on discharge 10/02 Continue lasix 60mg PO BID continue prednisone 40mg daily continue Neb treatment Will get a 2 step on discharge Stable from pulmonary standpoint A FIB Rate controlled Continue PO Cardizem Starting on carvedilol 6.25 mg BID INR 2.9 today Continue Coumadin Monitor INR Continue monitor in tele ACUTE RENAL FAILURE ON CKD 4 Creatine on admission 1.63 Received IVF Creatine was 2.3 today Continue monitor BMP Nephrology on board Continue lasix 60mg BID EPISTAXIS Possible related to the oxygen INR was 2.9 Received VIT K continue monitor HTN BP has been elevated On losartan/imdur/cardizem On amlodipine 5 mg daily and lasix 60mg BID Starting on Carvedilol 6.25 mg BID continue monitor BP DM type 2 Most recent Hba1c 7.4 Continue Lantus Pharmacy on board for glycemic control UTI Urine cx positive for Klebsiella pna complete course of Rocephin CAD Hold ASA due to epistaxis DVT Px on Coumadin INR 2.9 CODE STATUS FULL CODE DISPOSITION Will discharge home once medically stable Consultants: Maribell Current Inpatient Medications: Current Inpatient Medications Medications (Trade) Dose Ordered Sig/Rose Route Start Time Stop Time Status Last Admin Dose Admin Acetaminophen (Tylenol Tab) 650 mg Q4H PRN PO 09/23/17 13:15 10/23/17 13:14 Al Hydrox/Mg Hydrox/Simethicone (Maalox Max Susp) 15 ml Q4H PRN PO 09/23/17 13:15 10/23/17 13:14 Magnesium Hydroxide (Milk Of Magnesia Susp) 30 ml Q12H PRN PO 09/23/17 13:15 10/23/17 13:14 Ondansetron HCl (Zofran Inj) 4 mg Q6H PRN IV 09/23/17 13:15 10/23/17 13:14 Nitroglycerin (Nitrostat Tab) 0.4 mg UD PRN SL 09/23/17 13:15 10/23/17 13:14 Aspirin (Ecotrin Tab) 81 mg QAM PO 09/24/17 09:00 10/24/17 08:59 Future Hold 10/01/17 08:10 81 MG Polyethylene (Miralax Powder Packet) 17 gm DAILY PRN PO 09/23/17 13:15 10/23/17 13:14 Ferrous Sulfate (Feosol Tab) 325 mg DAILY PO 09/24/17 09:00 10/24/17 08:59 10/02/17 08:26 325 MG Glucose (Glucose Chew Tab) 1 tab UD PRN PO 09/23/17 13:30 10/23/17 13:29 Isosorbide Mononitrate (Imdur Ext Rel Tab) 30 mg DAILY PO 09/24/17 09:00 10/24/17 08:59 10/02/17 08:26 30 MG Losartan Potassium (coZAAR TAB) 100 mg DAILY PO 09/24/17 09:00 10/24/17 08:59 Future Hold 09/25/17 08:51 100 MG Lovastatin (Mevacor Tab) 80 mg HS PO 09/23/17 21:00 10/23/17 20:59 10/01/17 21:06 80 MG Pantoprazole Sodium (Protonix Tab) 40 mg DAILY PO 09/24/17 09:00 10/24/17 08:59 10/02/17 08:27 40 MG Miscellaneous Information (Order Awaiting Action) 1 ea QS N/A 09/23/17 16:00 10/23/17 15:59 Glucose (Glucose 40% Gel) 15-30 GRAMS 15 GRAMS... UD PRN PO 09/23/17 13:30 10/23/17 13:29 Glucose (Glucose Chew Tab) 4-8 Tablets 4 Tabl... UD PRN PO 09/23/17 13:30 10/23/17 13:29 Dextrose (Dextrose 50% 50ML Syringe) 25-50ML OF 50% DW IV FOR... UD PRN IV 09/23/17 13:30 10/23/17 13:29 Glucagon (Glucagon Inj) 1 mg UD PRN SQ 09/23/17 13:30 10/23/17 13:29 Zolpidem Tartrate (Ambien Tab) 5 mg HS PRN PO 09/24/17 03:00 10/24/17 02:59 Calcitriol (Rocaltrol Cap) 0.5 mcg DAILY PO 09/25/17 09:00 10/25/17 08:59 10/02/17 08:27 0.5 MCG Potassium Chloride (Klor-Con Tab) 20 meq DAILY PO 09/25/17 09:00 10/25/17 08:59 10/02/17 08:26 20 MEQ Lactobacillus Acidophilus (Floranex Tab) 4 tab TIDM PO 09/26/17 11:30 10/26/17 11:29 10/02/17 11:58 4 TAB Ipratropium [place] (Atrovent 0.02% 0.5MG/2.5ML Neb) 0.5 mg Q4R INH 09/26/17 12:00 10/26/17 11:59 10/02/17 15:29 0.5 MG Levalbuterol (Xopenex 1.25MG/ 0.5ML Neb) 1.25 mg Q4R INH 09/26/17 12:00 10/26/17 11:59 10/02/17 15:29 1.25 MG Miscellaneous Information (Consult Glycemic Management Pharmacy) 1 ea UD PRN N/A 09/26/17 11:30 10/26/17 11:29 Guaifenesin (Mucinex Contr Rel Tab) 600 mg Q12 PO 09/27/17 21:00 10/27/17 20:59 10/02/17 08:26 600 MG Insulin Aspart (novoLOG ASPART) ACHS SC 09/28/17 11:00 10/28/17 10:59 10/02/17 11:59 9 UNITS Warfarin Sodium (Coumadin Tab) 4 mg SuTuTh@1600 PO 09/29/17 16:00 10/29/17 15:59 Future hold 10/01/17 16:23 4 MG Warfarin Sodium (Coumadin Tab) 2 mg MoWeFrSa@1600 PO 09/28/17 16:00 10/28/17 15:59 Future hold 09/30/17 16:16 2 MG Diltiazem HCl (Cardizem Cd Cap) 180 mg BID PO 09/30/17 21:00 10/30/17 20:59 10/02/17 08:26 180 MG Amlodipine Besylate (Norvasc Tab) 5 mg HS PO 10/01/17 21:00 10/31/17 20:59 10/01/17 21:07 5 MG Furosemide (Lasix Tab) 60 mg BID17 PO 10/01/17 17:00 10/31/17 16:59 10/02/17 08:26 60 MG Insulin Aspart (novoLOG ASPART) SLIDING SCALE 0200 SC 10/02/17 02:00 11/01/17 01:59 Prednisone (PredniSONE TAB) 40 mg DAILY PO 10/02/17 09:00 11/01/17 08:59 10/02/17 08:27 40 MG Insulin Glargine (Lantus Solostar Pen) see protocol BID SQ 10/02/17 21:00 11/01/17 20:59 Carvedilol (Coreg Tab) 6.25 mg BID PO 10/02/17 21:00 11/01/17 20:59
[2017-10-02] MEDS: WARFARIN SOD 2 MG TAB PO SCH (17:54)
--- NOTE | 2017-10-02 19:09 | Nephrology Progress Note ---
Nephrology Progress Note Date of Service: Oct 02, 2017. Subjective up in chair; ongoing anxiety / sob > but today on RA. per pulm hypoxia may not be so new/different from baseline or unexpected in flu wake; cardiology started coreg Objective Date Time Temp Pulse Resp B/P (MAP) Pulse Ox O2 Delivery O2 Flow Rate FiO2 10/02/17 16:25 98 Nasal Cannula 2.0 10/02/17 15:49 36.5 83 19 167/58 (94) 97 Room Air 10/02/17 15:30 70 16 98 Room Air 10/02/17 12:06 98 Nasal Cannula 2.0 10/02/17 11:25 36.4 80 20 174/67 (102) 99 10/02/17 11:05 75 16 99 Room Air 10/02/17 08:01 98 Nasal Cannula 2.0 10/02/17 07:16 36.9 86 20 150/53 (85) 98 Nasal Cannula 2.0 10/02/17 07:14 76 16 98 Nasal Cannula 2.0 10/02/17 04:29 37.1 87 19 149/58 (88) 98 Nasal Cannula 2.0 10/02/17 04:00 Nasal Cannula 2.0 10/02/17 01:05 164/58 (93) 10/02/17 01:01 36.8 85 20 189/66 (107) 98 Nasal Cannula 188/73 (111) 10/02/17 00:00 Nasal Cannula 2.0 10/01/17 23:20 89 16 99 Nasal Cannula 2.0 10/01/17 20:27 36.5 88 20 158/68 (98) 97 Nasal Cannula 3.0 Humidified Oxygen 10/01/17 20:00 97 Nasal Cannula 2.0 10/01/17 19:23 101 18 98 Nasal Cannula 2.0 Physical Exam: GENERAL: Elderly white female up in chair on RA this evening; Awake, alert, oriented x3. HEENT: Mucous membranes moist. NECK: Supple CHEST: Bilateral decreased bases CARDIOVASCULAR: irregularly irregular w/o mr ABDOMEN: Soft and nontender, obese. no funes EXTREMITIES: 1+ pedal edema, trace edema BL ankles NEURO: cardenas, fluent speech, at times anxious Current Inpatient Medications Medications (Trade) Dose Ordered Sig/Rose Route Start Time Stop Time Status Last Admin Dose Admin Acetaminophen (Tylenol Tab) 650 mg Q4H PRN PO 09/23/17 13:15 10/23/17 13:14 Al Hydrox/Mg Hydrox/Simethicone (Maalox Max Susp) 15 ml Q4H PRN PO 09/23/17 13:15 10/23/17 13:14 Magnesium Hydroxide (Milk Of Magnesia Susp) 30 ml Q12H PRN PO 09/23/17 13:15 10/23/17 13:14 Ondansetron HCl (Zofran Inj) 4 mg Q6H PRN IV 09/23/17 13:15 10/23/17 13:14 Nitroglycerin (Nitrostat Tab) 0.4 mg UD PRN SL 09/23/17 13:15 10/23/17 13:14 Aspirin (Ecotrin Tab) 81 mg QAM PO 09/24/17 09:00 10/24/17 08:59 Future Hold 10/01/17 08:10 81 MG Polyethylene (Miralax Powder Packet) 17 gm DAILY PRN PO 09/23/17 13:15 10/23/17 13:14 Ferrous Sulfate (Feosol Tab) 325 mg DAILY PO 09/24/17 09:00 10/24/17 08:59 10/02/17 08:26 325 MG Glucose (Glucose Chew Tab) 1 tab UD PRN PO 09/23/17 13:30 10/23/17 13:29 Isosorbide Mononitrate (Imdur Ext Rel Tab) 30 mg DAILY PO 09/24/17 09:00 10/24/17 08:59 10/02/17 08:26 30 MG Losartan Potassium (coZAAR TAB) 100 mg DAILY PO 09/24/17 09:00 10/24/17 08:59 Future Hold 09/25/17 08:51 100 MG Lovastatin (Mevacor Tab) 80 mg HS PO 09/23/17 21:00 10/23/17 20:59 10/01/17 21:06 80 MG Pantoprazole Sodium (Protonix Tab) 40 mg DAILY PO 09/24/17 09:00 10/24/17 08:59 10/02/17 08:27 40 MG Miscellaneous Information (Order Awaiting Action) 1 ea QS N/A 09/23/17 16:00 10/23/17 15:59 Glucose (Glucose 40% Gel) 15-30 GRAMS 15 GRAMS... UD PRN PO 09/23/17 13:30 10/23/17 13:29 Glucose (Glucose Chew Tab) 4-8 Tablets 4 Tabl... UD PRN PO 09/23/17 13:30 10/23/17 13:29 Dextrose (Dextrose 50% 50ML Syringe) 25-50ML OF 50% DW IV FOR... UD PRN IV 09/23/17 13:30 10/23/17 13:29 Glucagon (Glucagon Inj) 1 mg UD PRN SQ 09/23/17 13:30 10/23/17 13:29 Zolpidem Tartrate (Ambien Tab) 5 mg HS PRN PO 09/24/17 03:00 10/24/17 02:59 Calcitriol (Rocaltrol Cap) 0.5 mcg DAILY PO 09/25/17 09:00 10/25/17 08:59 10/02/17 08:27 0.5 MCG Potassium Chloride (Klor-Con Tab) 20 meq DAILY PO 09/25/17 09:00 10/25/17 08:59 10/02/17 08:26 20 MEQ Lactobacillus Acidophilus (Floranex Tab) 4 tab TIDM PO 09/26/17 11:30 10/26/17 11:29 10/02/17 17:30 4 TAB Ipratropium [place] (Atrovent 0.02% 0.5MG/2.5ML Neb) 0.5 mg Q4R INH 09/26/17 12:00 10/26/17 11:59 10/02/17 15:29 0.5 MG Levalbuterol (Xopenex 1.25MG/ 0.5ML Neb) 1.25 mg Q4R INH 09/26/17 12:00 10/26/17 11:59 10/02/17 15:29 1.25 MG Miscellaneous Information (Consult Glycemic Management Pharmacy) 1 ea UD PRN N/A 09/26/17 11:30 10/26/17 11:29 Guaifenesin (Mucinex Contr Rel Tab) 600 mg Q12 PO 09/27/17 21:00 10/27/17 20:59 10/02/17 08:26 600 MG Insulin Aspart (novoLOG ASPART) ACHS SC 09/28/17 11:00 10/28/17 10:59 10/02/17 11:59 9 UNITS Warfarin Sodium (Coumadin Tab) 4 mg SuTuTh@1600 PO 09/29/17 16:00 10/29/17 15:59 Future hold 10/01/17 16:23 4 MG Warfarin Sodium (Coumadin Tab) 2 mg MoWeFrSa@1600 PO 09/28/17 16:00 10/28/17 15:59 Future hold 10/02/17 17:54 2 MG Diltiazem HCl (Cardizem Cd Cap) 180 mg BID PO 09/30/17 21:00 10/30/17 20:59 10/02/17 08:26 180 MG Amlodipine Besylate (Norvasc Tab) 5 mg HS PO 10/01/17 21:00 10/31/17 20:59 10/01/17 21:07 5 MG Furosemide (Lasix Tab) 60 mg BID17 PO 10/01/17 17:00 10/31/17 16:59 10/02/17 17:30 60 MG Insulin Aspart (novoLOG ASPART) SLIDING SCALE 0200 SC 10/02/17 02:00 11/01/17 01:59 Prednisone (PredniSONE TAB) 40 mg DAILY PO 10/02/17 09:00 11/01/17 08:59 10/02/17 08:27 40 MG Insulin Glargine (Lantus Solostar Pen) see protocol BID SQ 10/02/17 21:00 11/01/17 20:59 Carvedilol (Coreg Tab) 6.25 mg BID PO 10/02/17 21:00 11/01/17 20:59 Last 24 Hours Test 10/01/17 21:18 10/02/17 01:48 10/02/17 04:15 10/02/17 06:24 Bedside Glucose 182 mg/dl 144 mg/dl 95 mg/dl White Blood Count 5.36 K/uL Red Blood Count 3.27 M/uL Hemoglobin 10.1 g/dL Hematocrit 30.4 % Mean Corpuscular Volume 93.0 fL Mean Corpuscular Hemoglobin 30.9 pg Mean Corpuscular Hemoglobin Concent 33.2 g/dl Platelet Count 121 K/uL Mean Platelet Volume 10.3 fL Neutrophils (%) (Auto) 80.6 % Lymphocytes (%) (Auto) 9.9 % Monocytes (%) (Auto) 6.7 % Eosinophils (%) (Auto) 0.2 % Basophils (%) (Auto) 0.2 % Neutrophils # (Auto) 4.32 K/uL Lymphocytes # (Auto) 0.53 K/uL Monocytes # (Auto) 0.36 K/uL Eosinophils # (Auto) 0.01 K/uL Basophils # (Auto) 0.01 K/uL RDW Standard Deviation 46.8 fL RDW Coefficient of Variation 13.9 % Immature Granulocyte % (Auto) 2.4 % Immature Granulocyte # (Auto) 0.13 K/uL Nucleated RBC Absolute Count (auto) 0.04 K/uL Nucleated Red Blood Cells % 0.7 % Prothrombin Time 29.6 SECONDS Prothromb Time International Ratio 2.9 Sodium Level 138 mmol/L Potassium Level 3.7 mmol/L Chloride Level 102 mmol/L Carbon Dioxide Level 28 mmol/L Anion Gap 8.0 mmol/L Blood Urea Nitrogen 75 mg/dl Creatinine 2.35 mg/dl Est Creatinine Clear Calc Drug Dose 23.0 ml/min Estimated GFR () 22.1 Estimated GFR (Non- 19.1 BUN/Creatinine Ratio 31.9 Random Glucose 107 mg/dl Calcium Level 8.6 mg/dl Test 10/02/17 11:24 10/02/17 12:04 10/02/17 16:43 10/02/17 16:44 Bedside Glucose 107 mg/dl 56 mg/dl 58 mg/dl Hemoglobin 11.3 g/dL Hematocrit 34.1 % Assessment & Plan 77-year-old female who presented 09/23 with shortness of breath, most likely from influenza, as well as atrial fibrillation with rapid ventricular response and diastolic congestive heart failure. We are following for acute renal failure on background chronic kidney disease III, baseline creatinine mid/high ones. Acute renal failure on CKD3 >>nonoliguric ischemic ATN, not surprising that in the context of influenza, congestive heart failure, atrial fibrillation with rapid ventricular response >> she has volume overload w/ cardiorenal syndrome; improving volume status; creatinine has for now plateau'd in response to [facility] we lowered lasix; she has been strongly negative (about 1.5L daily) x 3 days; wts not changing much however -no further diagnostic work up needed -continue daily standing weights; plan to continue these at d/c as well -cont to limit po fluids to 1.5L; cont < 2 gm daily Na diet -needs daily bmp -cont strict I/O >>>cont current K suppls despite lower lasix Hypertension -uncontrolled in hospital >cont recently started 5 mg amlodipine HS and recently changed lasix po 60 mg bid >>>would cont to hold ARB at d/c; restart in clinic / as outpt if renal function stable >>>appreciate cardiology input re BP/rate control meds Appreciate consult; will follow w/ you. Care coordinated w/ Dr. Gibson
[2017-10-02] MEDS: LOVASTATIN 20 MG TAB PO SCH (20:33)
[2017-10-02] MEDS: CARVEDILOL 6.25 MG TAB PO SCH (20:33)
[2017-10-02] MEDS: AMLODIPINE BESYLATE 5 MG TAB PO SCH (20:34)
[2017-10-03] VITALS (12 sets, daily range): BP systolic 136–176; BP diastolic 52–68; PULSE 52–75; TEMP 36.3–36.7; O2SAT 94–100
[2017-10-03] MEDS: INSULIN ASPART 100 UNITS/ML 3 ML PEN SC SCH ×5 (01:56→21:06)
[2017-10-03] MEDS: IPRATROPIUM BROMIDE NEB SOLN 0.02% 2.5 ML VIAL INH SCH ×6 (03:18→22:52)
[2017-10-03] MEDS: LEVALBUTEROL 1.25MG/0.5ML NEB INH SCH ×6 (03:19→22:52)
[2017-10-03 06:36] LABS: HEMATOCRIT 30.7 % (37-47); HEMOGLOBIN 10.1 g/dL (12.0-16.0); MEAN CELL VOLUME 93.6 fL (80-100); MEAN CORPUSCULAR HEMOGLOBIN 30.8 pg (25-34); MEAN CORPUSCULAR HGB CONC 32.9 g/dl (32-36); MEAN PLATELET VOLUME 9.9 fL (7.4-10.4); NUCLEATED RED BLOOD CELL ABS 0.06 K/uL (0-0); PLATELET COUNT 120 K/uL (130-400); RED CELL DISTRIBUTION WIDTH CV 13.9 % (11.5-14.5); RED CELL DISTRIBUTION WIDTH SD 47.5 fL (36.4-46.3); WHITE BLOOD COUNT 5.76 K/uL (4.8-10.8)
[2017-10-03 06:41] LABS: INR 1.6 (0.9-1.1)
[2017-10-03 07:08] LABS: CALCIUM 8.6 mg/dl (8.5-10.1); CREATININE 2.46 mg/dl (0.60-1.20); POTASSIUM 3.6 mmol/L (3.5-5.1)
[2017-10-03] MEDS: FERROUS SULFATE 325 MG TAB PO SCH (08:17)
[2017-10-03] MEDS: LACTOBACILLUS ACIDOPHILUS (FLORANEX) TAB PO SCH ×3 (08:17→17:19)
[2017-10-03] MEDS: GUAIFENESIN 600 MG TABCR PO SCH ×2 (08:17→21:01)
[2017-10-03] MEDS: CALCITRIOL 0.25 MCG CAP PO SCH (08:18)
[2017-10-03] MEDS: CARVEDILOL 6.25 MG TAB PO SCH ×2 (08:21→21:02)
[2017-10-03] MEDS: ISOSORBIDE MONONITRATE 30 MG TABCR PO SCH (08:21)
[2017-10-03] MEDS: DILTIAZEM HCL 180 MG CAPCR PO SCH (08:21)
[2017-10-03] MEDS: PANTOprazole SOD 40 MG TAB PO SCH (08:21)
[2017-10-03] MEDS: POTASSIUM CHLORIDE 20 MEQ TABCR PO SCH (08:22)
[2017-10-03] MEDS: FUROSEMIDE 20 MG TAB PO SCH ×2 (08:22→17:20)
[2017-10-03] MEDS: INSULIN GLARGINE SOLOSTAR 100 UNITS/ML 3 ML PEN SQ SCH (08:39)
--- NOTE | 2017-10-03 10:48 | Nephrology Progress Note ---
Nephrology Progress Note Date of Service: Oct 03, 2017. Subjective 77 yo female with karlee on ckd with volume overload on appropriate diuretics. pt breathing better but still weak and gets sob easily. Objective Date Time Temp Pulse Resp B/P (MAP) Pulse Ox O2 Delivery O2 Flow Rate FiO2 10/03/17 08:06 36.3 74 20 147/63 (91) 100 Nasal Cannula 2.0 10/03/17 08:00 Nasal Cannula 2.0 10/03/17 07:01 75 18 100 Nasal Cannula 3.0 10/03/17 04:00 Nasal Cannula 2.0 10/03/17 03:27 36.6 64 18 137/52 (80) 99 Nasal Cannula 3.0 10/03/17 00:00 Nasal Cannula 2.0 10/02/17 23:28 36.4 86 19 151/48 (82) 99 Nasal Cannula 3.0 10/02/17 23:03 74 18 87 Room Air 10/02/17 20:00 Room Air 2.0 10/02/17 19:22 36.5 91 20 172/61 (98) 95 Room Air 10/02/17 19:10 89 18 94 Room Air 10/02/17 16:25 98 Nasal Cannula 2.0 10/02/17 15:49 36.5 83 19 167/58 (94) 97 Room Air 10/02/17 15:30 70 16 98 Room Air 10/02/17 12:06 98 Nasal Cannula 2.0 10/02/17 11:25 36.4 80 20 174/67 (102) 99 10/02/17 11:05 75 16 99 Room Air Physical Exam: General-aaox3 Eyes-no scleral icterus ENT-mmm Neck-supple Lungs-diminished breath sounds Heart-regular Abdomen-bs+ s/nt/nd Extremities-no c/c/e Neuro-nonfocal Current Inpatient Medications Medications (Trade) Dose Ordered Sig/Rose Route Start Time Stop Time Status Last Admin Dose Admin Acetaminophen (Tylenol Tab) 650 mg Q4H PRN PO 09/23/17 13:15 10/23/17 13:14 Al Hydrox/Mg Hydrox/Simethicone (Maalox Max Susp) 15 ml Q4H PRN PO 09/23/17 13:15 10/23/17 13:14 Magnesium Hydroxide (Milk Of Magnesia Susp) 30 ml Q12H PRN PO 09/23/17 13:15 10/23/17 13:14 Ondansetron HCl (Zofran Inj) 4 mg Q6H PRN IV 09/23/17 13:15 10/23/17 13:14 Nitroglycerin (Nitrostat Tab) 0.4 mg UD PRN SL 09/23/17 13:15 10/23/17 13:14 Aspirin (Ecotrin Tab) 81 mg QAM PO 09/24/17 09:00 10/24/17 08:59 Future Hold 10/01/17 08:10 81 MG Polyethylene (Miralax Powder Packet) 17 gm DAILY PRN PO 09/23/17 13:15 10/23/17 13:14 Ferrous Sulfate (Feosol Tab) 325 mg DAILY PO 09/24/17 09:00 10/24/17 08:59 10/03/17 08:17 325 MG Glucose (Glucose Chew Tab) 1 tab UD PRN PO 09/23/17 13:30 10/23/17 13:29 Isosorbide Mononitrate (Imdur Ext Rel Tab) 30 mg DAILY PO 09/24/17 09:00 10/24/17 08:59 10/03/17 08:21 30 MG Losartan Potassium (coZAAR TAB) 100 mg DAILY PO 09/24/17 09:00 10/24/17 08:59 Future Hold 09/25/17 08:51 100 MG Lovastatin (Mevacor Tab) 80 mg HS PO 09/23/17 21:00 10/23/17 20:59 10/02/17 20:33 80 MG Pantoprazole Sodium (Protonix Tab) 40 mg DAILY PO 09/24/17 09:00 10/24/17 08:59 10/03/17 08:21 40 MG Miscellaneous Information (Order Awaiting Action) 1 ea QS N/A 09/23/17 16:00 10/23/17 15:59 Glucose (Glucose 40% Gel) 15-30 GRAMS 15 GRAMS... UD PRN PO 09/23/17 13:30 10/23/17 13:29 Glucose (Glucose Chew Tab) 4-8 Tablets 4 Tabl... UD PRN PO 09/23/17 13:30 10/23/17 13:29 Dextrose (Dextrose 50% 50ML Syringe) 25-50ML OF 50% DW IV FOR... UD PRN IV 09/23/17 13:30 10/23/17 13:29 Glucagon (Glucagon Inj) 1 mg UD PRN SQ 09/23/17 13:30 10/23/17 13:29 Zolpidem Tartrate (Ambien Tab) 5 mg HS PRN PO 09/24/17 03:00 10/24/17 02:59 Calcitriol (Rocaltrol Cap) 0.5 mcg DAILY PO 09/25/17 09:00 10/25/17 08:59 10/03/17 08:18 0.5 MCG Potassium Chloride (Klor-Con Tab) 20 meq DAILY PO 09/25/17 09:00 10/25/17 08:59 10/03/17 08:22 20 MEQ Lactobacillus Acidophilus (Floranex Tab) 4 tab TIDM PO 09/26/17 11:30 10/26/17 11:29 10/03/17 08:17 4 TAB Ipratropium [place] (Atrovent 0.02% 0.5MG/2.5ML Neb) 0.5 mg Q4R INH 09/26/17 12:00 10/26/17 11:59 10/03/17 07:01 0.5 MG Levalbuterol (Xopenex 1.25MG/ 0.5ML Neb) 1.25 mg Q4R INH 09/26/17 12:00 10/26/17 11:59 10/03/17 07:01 1.25 MG Miscellaneous Information (Consult Glycemic Management Pharmacy) 1 ea UD PRN N/A 09/26/17 11:30 10/26/17 11:29 Guaifenesin (Mucinex Contr Rel Tab) 600 mg Q12 PO 09/27/17 21:00 10/27/17 20:59 10/03/17 08:17 600 MG Insulin Aspart (novoLOG ASPART) ACHS SC 09/28/17 11:00 10/28/17 10:59 10/03/17 08:28 7 UNITS Warfarin Sodium (Coumadin Tab) 4 mg SuTuTh@1600 PO 09/29/17 16:00 10/29/17 15:59 Future hold 10/01/17 16:23 4 MG Warfarin Sodium (Coumadin Tab) 2 mg MoWeFrSa@1600 PO 09/28/17 16:00 10/28/17 15:59 Future hold 10/02/17 17:54 2 MG Diltiazem HCl (Cardizem Cd Cap) 180 mg BID PO 09/30/17 21:00 10/30/17 20:59 10/03/17 08:21 180 MG Amlodipine Besylate (Norvasc Tab) 5 mg HS PO 10/01/17 21:00 10/31/17 20:59 10/02/17 20:34 5 MG Furosemide (Lasix Tab) 60 mg BID17 PO 10/01/17 17:00 10/31/17 16:59 10/03/17 08:22 60 MG Insulin Aspart (novoLOG ASPART) SLIDING SCALE 0200 SC 10/02/17 02:00 11/01/17 01:59 Prednisone (PredniSONE TAB) 40 mg DAILY PO 10/02/17 09:00 11/01/17 08:59 10/03/17 08:16 40 MG Insulin Glargine (Lantus Solostar Pen) see protocol BID SQ 10/02/17 21:00 11/01/17 20:59 10/03/17 08:39 10 UNITS Carvedilol (Coreg Tab) 6.25 mg BID PO 10/02/17 21:00 11/01/17 20:59 10/03/17 08:21 6.25 MG Last 24 Hours Test 10/02/17 11:24 10/02/17 12:04 10/02/17 16:43 10/02/17 16:44 Bedside Glucose 107 mg/dl 56 mg/dl 58 mg/dl Hemoglobin 11.3 g/dL Hematocrit 34.1 % Test 10/02/17 20:39 10/03/17 02:24 10/03/17 06:18 10/03/17 06:52 Bedside Glucose 94 mg/dl 84 mg/dl 102 mg/dl White Blood Count 5.76 K/uL Red Blood Count 3.28 M/uL Hemoglobin 10.1 g/dL Hematocrit 30.7 % Mean Corpuscular Volume 93.6 fL Mean Corpuscular Hemoglobin 30.8 pg Mean Corpuscular Hemoglobin Concent 32.9 g/dl RDW Standard Deviation 47.5 fL RDW Coefficient of Variation 13.9 % Platelet Count 120 K/uL Mean Platelet Volume 9.9 fL Nucleated RBC Absolute Count (auto) 0.06 K/uL Nucleated Red Blood Cells % 1.0 % Prothrombin Time 16.4 SECONDS Prothromb Time International Ratio 1.6 Sodium Level 136 mmol/L Potassium Level 3.6 mmol/L Chloride Level 100 mmol/L Carbon Dioxide Level 29 mmol/L Anion Gap 7.0 mmol/L Blood Urea Nitrogen 73 mg/dl Creatinine 2.46 mg/dl Est Creatinine Clear Calc Drug Dose 22.0 ml/min Estimated GFR () 20.9 Estimated GFR (Non- 18.0 BUN/Creatinine Ratio 29.8 Random Glucose 93 mg/dl Calcium Level 8.6 mg/dl Assessment & Plan KARLEE on ckd-continue current diuretics. creatinine is slowly trending up. trying to optimize pulmonary function although sob is multifactorial. if creatinine continues to trend up tomorrow, consider reducing diuretic dosage and following creatinine numbers closely as an outpt. did discuss with patient possibility of rehab since she lives alone and is still quite weak. pt not excited about the idea but is going to think about it. would like her to walk at least once around the [place] to assure us that she is stable enough to go home alone.
--- NOTE | 2017-10-03 13:48 | Pharmacy Progress Note ---
Pharmacy Glycemic Short Note 2 Date of Service Oct 03, 2017. OUTPATIENT ANTIDIABETIC REGIMEN: * Lantus 25 units qam and 11 units qhs + SSI Test 10/02/17 16:43 10/02/17 16:44 10/02/17 20:39 10/03/17 02:24 Bedside Glucose 56 mg/dl (70-90) 58 mg/dl (70-90) 94 mg/dl (70-90) 84 mg/dl (70-90) Test 10/03/17 06:18 10/03/17 06:52 10/03/17 11:41 Random Glucose 93 mg/dl (70-99) Bedside Glucose 102 mg/dl (70-90) 70 mg/dl (70-90) ASSESSMENT: * See progress note from 09/25/17 for more background info, in short: * Pt receiving SQ basal bolus insulin regimen for hyperglycemia secondary to baseline DM (outpatient regimen on hold) and steroids * Patient received 57 units of SQ insulin yesterday and had an episode of hypoglycemia yesterday and early this morning * Changes needed to insulin regimen: * Hypoglycemia - decrease Lantus and loosen CF and CR PLAN FOR INPATIENT GLYCEMIC CONTROL: * Basal insulin * Lantus SQ daily * 0-15 units based on BSG * Bolus insulin * NovoLog per scale ACHS or Q6hrs while NPO * Goal Range: Low 110 mg/dL - High 140 mg/dL * Correction Factor: 25 mg/dL/unit * Nutritional / Prandial insulin per carb ratio of 1 unit per 9 grams CHO consumed Thank you.
--- NOTE | 2017-10-03 14:10 | Progress Note ---
Medicine Progress Note Date & Time of Visit: Oct 03, 2017 at 13:57. Subjective Pt was seen and examined Sitting in chair with no distress Pt said that breathing seems to improve slightly Her cough improves Feels a little weak today Pt said that she lives alone and would like to move around more Denies any chest pain, palpitation, dizziness Objective Last 8 Hrs Date Time Temp Pulse Resp B/P (MAP) Pulse Ox O2 Delivery O2 Flow Rate FiO2 10/03/17 12:25 36.3 52 20 136/52 (80) 100 Nasal Cannula 2.0 10/03/17 11:45 Nasal Cannula 2.0 10/03/17 11:16 64 18 94 Nasal Cannula 2.0 10/03/17 08:06 36.3 74 20 147/63 (91) 100 Nasal Cannula 2.0 10/03/17 08:00 Nasal Cannula 2.0 10/03/17 07:01 75 18 100 Nasal Cannula 3.0 Physical Exam: General- No acute distress Head- atraumatic Eyes- PERRL, EOMI ENT- oropharynx clear Neck- supple, no JVD Lungs- Decrease breath sound Heart- irregular rhythm; no murmur Abdomen- normal bowel sounds, soft Extremities- no calf tenderness Neuro- alert, oriented x 3; PERRL Skin- warm & dry Laboratory Results: Last 24 Hours Test 10/02/17 16:43 10/02/17 16:44 10/02/17 20:39 10/03/17 02:24 Bedside Glucose 56 mg/dl 58 mg/dl 94 mg/dl 84 mg/dl Test 10/03/17 06:18 10/03/17 06:52 10/03/17 11:41 White Blood Count 5.76 K/uL Red Blood Count 3.28 M/uL Hemoglobin 10.1 g/dL Hematocrit 30.7 % Mean Corpuscular Volume 93.6 fL Mean Corpuscular Hemoglobin 30.8 pg Mean Corpuscular Hemoglobin Concent 32.9 g/dl RDW Standard Deviation 47.5 fL RDW Coefficient of Variation 13.9 % Platelet Count 120 K/uL Mean Platelet Volume 9.9 fL Nucleated RBC Absolute Count (auto) 0.06 K/uL Nucleated Red Blood Cells % 1.0 % Prothrombin Time 16.4 SECONDS Prothromb Time International Ratio 1.6 Sodium Level 136 mmol/L Potassium Level 3.6 mmol/L Chloride Level 100 mmol/L Carbon Dioxide Level 29 mmol/L Anion Gap 7.0 mmol/L Blood Urea Nitrogen 73 mg/dl Creatinine 2.46 mg/dl Est Creatinine Clear Calc Drug Dose 22.0 ml/min Estimated GFR () 20.9 Estimated GFR (Non- 18.0 BUN/Creatinine Ratio 29.8 Random Glucose 93 mg/dl Calcium Level 8.6 mg/dl Bedside Glucose 102 mg/dl 70 mg/dl Assessment & Plan 77 year old female with history of COPD, Nocturnal Hypoxemia, A fib on Coumadin , CAD, DM, HTN presenting with dyspnea ACUTE HYPOXIC RESPIRATORY FAILURE INFLUENZA A vs ACUTE DIASTOLIC CHF EXACERBATION vs COPD EXACERBATION Positive for influenza A Continue Tamiflu V/Q scan showed no perfusion defects to suggest pulmonary embolus. CXR showed mild central pulmonary vascular congestion without overt edema. On Solumedrol, will taper steroid Continue lasix 60mg BID Continue Neb treatment Will need CPAP as an outpatient as per pulmonary team Cardiology and pulmonary on board Clinically improved 2 step exercise on discharge 2/3 Continue lasix 60mg PO BID continue prednisone 40mg daily continue Neb treatment Will get a 2 step Stable from pulmonary standpoint A FIB Rate controlled Continue PO Cardizem Continue carvedilol 6.25 mg BID INR 1.6 today because pt received vit K yesterday Continue Coumadin Monitor INR Continue monitor in tele ACUTE RENAL FAILURE ON CKD 4 Creatine on admission 1.63 Received IVF Creatine was 2.4 today Continue monitor BMP Nephrology on board Case discussed with nephrology and recommended to continue lasix 60mg BID If creating trending up, will decrease lasix dose tomorrow EPISTAXIS Possible related to the oxygen Continue Nasal saline Resolved HTN BP improved On amlodipine 5 mg daily and lasix 60mg BID, Imdur and cardizem Starting on Carvedilol 6.25 mg BID Will continue to hold losartan on discharge Monitor BP and if elevates can start losartan and titrate Monitor BP DM type 2 Most recent Hba1c 7.4 Continue Lantus Pharmacy on board for glycemic control UTI Urine cx positive for Klebsiella pna complete course of Rocephin CAD Hold ASA due to epistaxis DVT Px on Coumadin INR 1.6 CODE STATUS FULL CODE DISPOSITION Will discharge home once medically stable Consultants: Maribell Current Inpatient Medications: Current Inpatient Medications Medications (Trade) Dose Ordered Sig/Rose Route Start Time Stop Time Status Last Admin Dose Admin Acetaminophen (Tylenol Tab) 650 mg Q4H PRN PO 09/23/17 13:15 10/23/17 13:14 Al Hydrox/Mg Hydrox/Simethicone (Maalox Max Susp) 15 ml Q4H PRN PO 09/23/17 13:15 10/23/17 13:14 Magnesium Hydroxide (Milk Of Magnesia Susp) 30 ml Q12H PRN PO 09/23/17 13:15 10/23/17 13:14 Ondansetron HCl (Zofran Inj) 4 mg Q6H PRN IV 09/23/17 13:15 10/23/17 13:14 Nitroglycerin (Nitrostat Tab) 0.4 mg UD PRN SL 09/23/17 13:15 10/23/17 13:14 Aspirin (Ecotrin Tab) 81 mg QAM PO 09/24/17 09:00 10/24/17 08:59 Future Hold 10/01/17 08:10 81 MG Polyethylene (Miralax Powder Packet) 17 gm DAILY PRN PO 09/23/17 13:15 10/23/17 13:14 Ferrous Sulfate (Feosol Tab) 325 mg DAILY PO 09/24/17 09:00 10/24/17 08:59 10/03/17 08:17 325 MG Glucose (Glucose Chew Tab) 1 tab UD PRN PO 09/23/17 13:30 10/23/17 13:29 Isosorbide Mononitrate (Imdur Ext Rel Tab) 30 mg DAILY PO 09/24/17 09:00 10/24/17 08:59 10/03/17 08:21 30 MG Losartan Potassium (coZAAR TAB) 100 mg DAILY PO 09/24/17 09:00 10/24/17 08:59 Future Hold 09/25/17 08:51 100 MG Lovastatin (Mevacor Tab) 80 mg HS PO 09/23/17 21:00 10/23/17 20:59 10/02/17 20:33 80 MG Pantoprazole Sodium (Protonix Tab) 40 mg DAILY PO 09/24/17 09:00 10/24/17 08:59 10/03/17 08:21 40 MG Miscellaneous Information (Order Awaiting Action) 1 ea QS N/A 09/23/17 16:00 10/23/17 15:59 Glucose (Glucose 40% Gel) 15-30 GRAMS 15 GRAMS... UD PRN PO 09/23/17 13:30 10/23/17 13:29 Glucose (Glucose Chew Tab) 4-8 Tablets 4 Tabl... UD PRN PO 09/23/17 13:30 10/23/17 13:29 Dextrose (Dextrose 50% 50ML Syringe) 25-50ML OF 50% DW IV FOR... UD PRN IV 09/23/17 13:30 10/23/17 13:29 Glucagon (Glucagon Inj) 1 mg UD PRN SQ 09/23/17 13:30 10/23/17 13:29 Zolpidem Tartrate (Ambien Tab) 5 mg HS PRN PO 09/24/17 03:00 10/24/17 02:59 Calcitriol (Rocaltrol Cap) 0.5 mcg DAILY PO 09/25/17 09:00 10/25/17 08:59 10/03/17 08:18 0.5 MCG Potassium Chloride (Klor-Con Tab) 20 meq DAILY PO 09/25/17 09:00 10/25/17 08:59 10/03/17 08:22 20 MEQ Lactobacillus Acidophilus (Floranex Tab) 4 tab TIDM PO 09/26/17 11:30 10/26/17 11:29 10/03/17 12:26 4 TAB Ipratropium [place] (Atrovent 0.02% 0.5MG/2.5ML Neb) 0.5 mg Q4R INH 09/26/17 12:00 10/26/17 11:59 10/03/17 11:16 0.5 MG Levalbuterol (Xopenex 1.25MG/ 0.5ML Neb) 1.25 mg Q4R INH 09/26/17 12:00 10/26/17 11:59 10/03/17 11:16 1.25 MG Miscellaneous Information (Consult Glycemic Management Pharmacy) 1 ea UD PRN N/A 09/26/17 11:30 10/26/17 11:29 Guaifenesin (Mucinex Contr Rel Tab) 600 mg Q12 PO 09/27/17 21:00 10/27/17 20:59 10/03/17 08:17 600 MG Insulin Aspart (novoLOG ASPART) ACHS SC 09/28/17 11:00 10/28/17 10:59 10/03/17 08:28 7 UNITS Warfarin Sodium (Coumadin Tab) 4 mg SuTuTh@1600 PO 09/29/17 16:00 10/29/17 15:59 Future hold 10/01/17 16:23 4 MG Warfarin Sodium (Coumadin Tab) 2 mg MoWeFrSa@1600 PO 09/28/17 16:00 10/28/17 15:59 Future hold 10/02/17 17:54 2 MG Diltiazem HCl (Cardizem Cd Cap) 180 mg BID PO 09/30/17 21:00 10/30/17 20:59 10/03/17 08:21 180 MG Amlodipine Besylate (Norvasc Tab) 5 mg HS PO 10/01/17 21:00 10/31/17 20:59 10/02/17 20:34 5 MG Furosemide (Lasix Tab) 60 mg BID17 PO 10/01/17 17:00 10/31/17 16:59 10/03/17 08:22 60 MG Prednisone (PredniSONE TAB) 40 mg DAILY PO 10/02/17 09:00 11/01/17 08:59 10/03/17 08:16 40 MG Carvedilol (Coreg Tab) 6.25 mg BID PO 10/02/17 21:00 11/01/17 20:59 10/03/17 08:21 6.25 MG Insulin Glargine (Lantus Solostar Pen) see protocol DAILY SQ 10/04/17 09:00 11/03/17 08:59
--- NOTE | 2017-10-03 14:34 | Cardiology Progress Note ---
Cardiology Progress Note Date of Service Oct 03, 2017. Cardiology Progress Note Patient unavailable when I went to see her. I have placed her diltiazem on hold due to relative bradycardia, AV 40-50 bpm range.
[2017-10-03] MEDS: WARFARIN SOD 2 MG TAB PO SCH (17:19)
[2017-10-03] MEDS: LOVASTATIN 20 MG TAB PO SCH (21:00)
[2017-10-03] MEDS: AMLODIPINE BESYLATE 5 MG TAB PO SCH (21:02)
[2017-10-04] VITALS (11 sets, daily range): BP systolic 142–160; BP diastolic 55–70; PULSE 55–98; TEMP 36.4–37; O2SAT 95–99
[2017-10-04] MEDS: LEVALBUTEROL 1.25MG/0.5ML NEB INH SCH ×6 (03:29→23:08)
[2017-10-04] MEDS: IPRATROPIUM BROMIDE NEB SOLN 0.02% 2.5 ML VIAL INH SCH ×6 (03:29→23:08)
[2017-10-04 06:48] LABS: INR 1.5 (0.9-1.1)
[2017-10-04 07:06] LABS: CALCIUM 8.3 mg/dl (8.5-10.1); CREATININE 2.04 mg/dl (0.60-1.20); POTASSIUM 3.2 mmol/L (3.5-5.1)
[2017-10-04] MEDS: CARVEDILOL 6.25 MG TAB PO SCH ×2 (08:14→21:33)
[2017-10-04] MEDS: CALCITRIOL 0.25 MCG CAP PO SCH (08:14)
[2017-10-04] MEDS: GUAIFENESIN 600 MG TABCR PO SCH ×2 (08:15→21:32)
[2017-10-04] MEDS: LACTOBACILLUS ACIDOPHILUS (FLORANEX) TAB PO SCH ×3 (08:15→17:07)
[2017-10-04] MEDS: FERROUS SULFATE 325 MG TAB PO SCH (08:15)
[2017-10-04] MEDS: ISOSORBIDE MONONITRATE 30 MG TABCR PO SCH (08:15)
[2017-10-04] MEDS: POTASSIUM CHLORIDE 20 MEQ TABCR PO SCH (08:17)
[2017-10-04] MEDS: PANTOprazole SOD 40 MG TAB PO SCH (08:17)
[2017-10-04] MEDS: INSULIN ASPART 100 UNITS/ML 3 ML PEN SC SCH ×4 (08:27→21:39)
[2017-10-04] MEDS: INSULIN GLARGINE SOLOSTAR 100 UNITS/ML 3 ML PEN SQ SCH (08:28)
[2017-10-04] MEDS ORDERED: POTASSIUM CHLORIDE 10 MEQ TABCR PO ONE (09:00)
[2017-10-04] MEDS: FUROSEMIDE 20 MG TAB PO SCH ×2 (09:27→17:06)
--- NOTE | 2017-10-04 12:57 | Cardiology Follow-Up ---
Subjective General Date of Service: Oct 04, 2017. Chief Complaint: follow up SOB Pt evaluation today including: conversation w/ patient, conversation w/ family , physical exam History of Present Illness The patient is a 77 year old female seen in follow up. Patient describes ongoing fatigue and SOB with exertion. She is walking with a walker in her room. Allergies Coded Allergies: Codeine (Verified Allergy, Unknown, UNKNOWN, 09/23/17) INFO FROM PT Aspirin (Verified Adverse Reaction, Intermediate, (ULCER), 09/23/17) Venlafaxine (Verified Adverse Reaction, Intermediate, DROWINESS/ CONFUSION , 09/23/17) Cephalexin (Verified Adverse Reaction, Mild, DROWSINESS, UNABLE TO DRIVE, UPSET STOMACH, 09/23/17) Oxycodone (Verified Adverse Reaction, Mild, n/v, 09/23/17) gmg Social History Smoking Status: Former Smoker Hx Tobacco Use In Past Year?: No Hx Alcohol Use - Type And Amou: No Hx Substance Use - Type And Am: No Problem List Medical Problems: (1) Acute kidney injury Status: Acute (2) KARLEE (acute kidney injury) Status: Acute (3) Anxiety attack Status: Acute (4) Atrial fibrillation with rapid ventricular response Status: Acute (5) Atypical chest pain Status: Acute (6) Bronchitis Status: Acute (7) Candidal intertrigo Status: Acute (8) COPD exacerbation Status: Acute (9) COPD exacerbation Status: Acute (10) Hyperventilation Status: Acute (11) Left sided chest pain Status: Acute (12) Pneumonia Status: Acute (13) Shortness of breath Status: Acute (14) Substernal chest pain Status: Acute (15) Substernal chest pain Status: Acute (16) UTI (urinary tract infection) Status: Acute (17) Weakness Status: Acute Physical Exam Vital Signs Last Vital Signs Documentation Date Time Temp Pulse Resp B/P (MAP) Pulse Ox O2 Delivery O2 Flow Rate FiO2 10/04/17 12:02 36.7 55 18 142/70 (94) 98 10/04/17 11:53 Nasal Cannula 2.0 Physical Exam Constitutional: Level of Distress: chronically ill Neck: supple Lungs: Auscultation: no wheezing, no rales/crackles Cardiovascular: Heart Auscultation: no murmurs, irregular rate rhythm Extremities: pertinent finding (trace to 1 + edema ) Assessment and Plan Assessment and Plan Impression: 1. Acute on chronic diastolic heart failure 2. Atrial fibrillation 3. Influenza 4. Acute on chronic renal failure Plan: Creatinine is trending toward improvement. Diltiazem DC'd due to relative bradycardia-HR and BP stable today. Continue current therapy. Increase activity as tolerated, will likely need rehab. Laboratory Results Last 24 Hours Test 10/03/17 16:30 10/03/17 20:46 10/04/17 06:08 10/04/17 07:09 Bedside Glucose 185 mg/dl 239 mg/dl 201 mg/dl Prothrombin Time 15.5 SECONDS Prothromb Time International Ratio 1.5 Sodium Level 135 mmol/L Potassium Level 3.2 mmol/L Chloride Level 98 mmol/L Carbon Dioxide Level 30 mmol/L Anion Gap 7.0 mmol/L Blood Urea Nitrogen 69 mg/dl Creatinine 2.04 mg/dl Est Creatinine Clear Calc Drug Dose 26.3 ml/min Estimated GFR () 26.2 Estimated GFR (Non- 22.6 BUN/Creatinine Ratio 33.9 Random Glucose 187 mg/dl Calcium Level 8.3 mg/dl Test 10/04/17 11:09 Bedside Glucose 158 mg/dl
--- NOTE | 2017-10-04 14:28 | Progress Note ---
Medicine Progress Note Date & Time of Visit: Oct 04, 2017 at 14:21. Subjective Pt was seen and examined Sitting in chair with no distress Pt said that her breathing and her cough seem to get better Pt leaves alone and since the weather is bad, I do not think it is safe to d/c today She said that she talked to her daughter and was thinking possible to go to [facility] for rehab Denies any chest pain, palpitation, dizziness and fever Objective Last 8 Hrs Date Time Temp Pulse Resp B/P (MAP) Pulse Ox O2 Delivery O2 Flow Rate FiO2 10/04/17 12:02 36.7 55 18 142/70 (94) 98 10/04/17 11:53 Nasal Cannula 2.0 10/04/17 11:13 55 18 95 Nasal Cannula 2.0 10/04/17 07:50 Nasal Cannula 2.0 10/04/17 07:22 36.4 76 20 149/55 (86) 97 Nasal Cannula 2.0 10/04/17 07:06 72 18 98 Nasal Cannula 2.0 Physical Exam: General- No acute distress Head- atraumatic Eyes- PERRL, EOMI ENT- oropharynx clear Neck- supple, no JVD Lungs- Decrease breath sound Heart- irregular rhythm; no murmur Abdomen- normal bowel sounds, soft Extremities- no calf tenderness, +edema Neuro- alert, oriented x 3; PERRL Skin- warm & dry Laboratory Results: Last 24 Hours Test 10/03/17 16:30 10/03/17 20:46 10/04/17 06:08 10/04/17 07:09 Bedside Glucose 185 mg/dl 239 mg/dl 201 mg/dl Prothrombin Time 15.5 SECONDS Prothromb Time International Ratio 1.5 Sodium Level 135 mmol/L Potassium Level 3.2 mmol/L Chloride Level 98 mmol/L Carbon Dioxide Level 30 mmol/L Anion Gap 7.0 mmol/L Blood Urea Nitrogen 69 mg/dl Creatinine 2.04 mg/dl Est Creatinine Clear Calc Drug Dose 26.3 ml/min Estimated GFR () 26.2 Estimated GFR (Non- 22.6 BUN/Creatinine Ratio 33.9 Random Glucose 187 mg/dl Calcium Level 8.3 mg/dl Test 10/04/17 11:09 Bedside Glucose 158 mg/dl Assessment & Plan 77 year old female with history of COPD, Nocturnal Hypoxemia, A fib on Coumadin , CAD, DM, HTN presenting with dyspnea ACUTE HYPOXIC RESPIRATORY FAILURE INFLUENZA A vs ACUTE DIASTOLIC CHF EXACERBATION vs COPD EXACERBATION Positive for influenza A Continue Tamiflu V/Q scan showed no perfusion defects to suggest pulmonary embolus. CXR showed mild central pulmonary vascular congestion without overt edema. On Solumedrol, will taper steroid Continue lasix 60mg BID Continue Neb treatment Will need CPAP as an outpatient as per pulmonary team Cardiology and pulmonary on board Clinically improved 2 step exercise on discharge 10/04 Clinically improve Continue lasix 60mg PO BID Prednisone taper to 20mg daily starting tomorrow continue Neb treatment Will get a 2 step done today Stable from pulmonary standpoint A FIB Rate controlled Continue PO Cardizem Continue carvedilol 6.25 mg BID INR 1.5 today because pt received vit K Continue Coumadin Monitor INR Continue monitor in tele ACUTE RENAL FAILURE ON CKD 4 Creatine on admission 1.63 Received IVF Creatine was 2.04 today Continue monitor BMP Nephrology on board Case discussed with nephrology yesterday and recommended to continue lasix 60mg BID Continue current dose of lasix EPISTAXIS Possible related to the oxygen Continue Nasal saline Resolved HTN On amlodipine 5 mg daily and lasix 60mg BID, Imdur and cardizem Starting on Carvedilol 6.25 mg BID Will continue to hold losartan on discharge Monitor BP and if elevates can start losartan and titrate BP stable DM type 2 Most recent Hba1c 7.4 Continue Lantus Pharmacy on board for glycemic control UTI Urine cx positive for Klebsiella pna complete course of Rocephin CAD will resume ASA On carvedilol and statin DVT Px on Coumadin INR 1.5 CODE STATUS FULL CODE DISPOSITION Will discharge home tomorrow Consultants: Maribell Current Inpatient Medications: Current Inpatient Medications Medications (Trade) Dose Ordered Sig/Rose Route Start Time Stop Time Status Last Admin Dose Admin Acetaminophen (Tylenol Tab) 650 mg Q4H PRN PO 09/23/17 13:15 10/23/17 13:14 Al Hydrox/Mg Hydrox/Simethicone (Maalox Max Susp) 15 ml Q4H PRN PO 09/23/17 13:15 10/23/17 13:14 Magnesium Hydroxide (Milk Of Magnesia Susp) 30 ml Q12H PRN PO 09/23/17 13:15 10/23/17 13:14 Ondansetron HCl (Zofran Inj) 4 mg Q6H PRN IV 09/23/17 13:15 10/23/17 13:14 Nitroglycerin (Nitrostat Tab) 0.4 mg UD PRN SL 09/23/17 13:15 10/23/17 13:14 Aspirin (Ecotrin Tab) 81 mg QAM PO 09/24/17 09:00 10/24/17 08:59 Future Hold 10/01/17 08:10 81 MG Polyethylene (Miralax Powder Packet) 17 gm DAILY PRN PO 09/23/17 13:15 10/23/17 13:14 Ferrous Sulfate (Feosol Tab) 325 mg DAILY PO 09/24/17 09:00 10/24/17 08:59 10/04/17 08:15 325 MG Glucose (Glucose Chew Tab) 1 tab UD PRN PO 09/23/17 13:30 10/23/17 13:29 Isosorbide Mononitrate (Imdur Ext Rel Tab) 30 mg DAILY PO 09/24/17 09:00 10/24/17 08:59 10/04/17 08:15 30 MG Losartan Potassium (coZAAR TAB) 100 mg DAILY PO 09/24/17 09:00 10/24/17 08:59 Future Hold 09/25/17 08:51 100 MG Lovastatin (Mevacor Tab) 80 mg HS PO 09/23/17 21:00 10/23/17 20:59 10/03/17 21:00 80 MG Pantoprazole Sodium (Protonix Tab) 40 mg DAILY PO 09/24/17 09:00 10/24/17 08:59 10/04/17 08:17 40 MG Miscellaneous Information (Order Awaiting Action) 1 ea QS N/A 09/23/17 16:00 10/23/17 15:59 Glucose (Glucose 40% Gel) 15-30 GRAMS 15 GRAMS... UD PRN PO 09/23/17 13:30 10/23/17 13:29 Glucose (Glucose Chew Tab) 4-8 Tablets 4 Tabl... UD PRN PO 09/23/17 13:30 10/23/17 13:29 Dextrose (Dextrose 50% 50ML Syringe) 25-50ML OF 50% DW IV FOR... UD PRN IV 09/23/17 13:30 10/23/17 13:29 Glucagon (Glucagon Inj) 1 mg UD PRN SQ 09/23/17 13:30 10/23/17 13:29 Zolpidem Tartrate (Ambien Tab) 5 mg HS PRN PO 09/24/17 03:00 10/24/17 02:59 Calcitriol (Rocaltrol Cap) 0.5 mcg DAILY PO 09/25/17 09:00 10/25/17 08:59 10/04/17 08:14 0.5 MCG Potassium Chloride (Klor-Con Tab) 20 meq DAILY PO 09/25/17 09:00 10/25/17 08:59 10/04/17 08:17 20 MEQ Lactobacillus Acidophilus (Floranex Tab) 4 tab TIDM PO 09/26/17 11:30 10/26/17 11:29 10/04/17 13:06 4 TAB Ipratropium [place] (Atrovent 0.02% 0.5MG/2.5ML Neb) 0.5 mg Q4R INH 09/26/17 12:00 10/26/17 11:59 10/04/17 11:13 0.5 MG Levalbuterol (Xopenex 1.25MG/ 0.5ML Neb) 1.25 mg Q4R INH 09/26/17 12:00 10/26/17 11:59 10/04/17 11:13 1.25 MG Miscellaneous Information (Consult Glycemic Management Pharmacy) 1 ea UD PRN N/A 09/26/17 11:30 10/26/17 11:29 Guaifenesin (Mucinex Contr Rel Tab) 600 mg Q12 PO 09/27/17 21:00 10/27/17 20:59 10/04/17 08:15 600 MG Insulin Aspart (novoLOG ASPART) ACHS SC 09/28/17 11:00 10/28/17 10:59 10/04/17 13:09 7 UNITS Warfarin Sodium (Coumadin Tab) 4 mg SuTuTh@1600 PO 09/29/17 16:00 10/29/17 15:59 Future hold 10/01/17 16:23 4 MG Warfarin Sodium (Coumadin Tab) 2 mg MoWeFrSa@1600 PO 09/28/17 16:00 10/28/17 15:59 Future hold 10/03/17 17:19 2 MG Amlodipine Besylate (Norvasc Tab) 5 mg HS PO 10/01/17 21:00 10/31/17 20:59 10/03/17 21:02 5 MG Furosemide (Lasix Tab) 60 mg BID17 PO 10/01/17 17:00 10/31/17 16:59 10/04/17 09:27 60 MG Carvedilol (Coreg Tab) 6.25 mg BID PO 10/02/17 21:00 11/01/17 20:59 10/04/17 08:14 6.25 MG Insulin Glargine (Lantus Solostar Pen) see protocol DAILY SQ 10/04/17 09:00 11/03/17 08:59 10/04/17 08:28 15 UNITS Prednisone (PredniSONE TAB) 20 mg DAILY PO 10/05/17 09:00 11/04/17 08:59
--- NOTE | 2017-10-04 14:37 | Pharmacy Progress Note ---
Pharmacy Glycemic Short Note 2 Date of Service Oct 04, 2017. OUTPATIENT ANTIDIABETIC REGIMEN: * Lantus 25 units qam and 11 units qhs + SSI Test 10/02/17 16:43 10/02/17 16:44 10/02/17 20:39 10/03/17 02:24 Bedside Glucose 56 mg/dl (70-90) 58 mg/dl (70-90) 94 mg/dl (70-90) 84 mg/dl (70-90) Test 10/03/17 06:18 10/03/17 06:52 10/03/17 11:41 Random Glucose 93 mg/dl (70-99) Bedside Glucose 102 mg/dl (70-90) 70 mg/dl (70-90) ASSESSMENT: * See progress note from 09/25/17 for more background info, in short: * Pt receiving SQ basal bolus insulin regimen for hyperglycemia secondary to baseline DM (outpatient regimen on hold) and steroids * 10/02 -- Patient received 57 units of SQ insulin and had an episode of hypoglycemia (too much Lantus) * 10/03 -- Patient received 30 units of SQ insulin and had an episode of hyperglycemia at bedtime (not enough Lantus) * Today I have optimized her her Lantus dose and she is now better controlled. Prednisone continues to taper down to 20mg starting tomorrow * Changes needed to insulin regimen: * Adjust Lantus PLAN FOR INPATIENT GLYCEMIC CONTROL: * Basal insulin * Lantus SQ daily * 0-15 units based on BSG * Bolus insulin * NovoLog per scale ACHS or Q6hrs while NPO * Goal Range: Low 110 mg/dL - High 140 mg/dL * Correction Factor: 25 mg/dL/unit * Nutritional / Prandial insulin per carb ratio of 1 unit per 9 grams CHO consumed Thank you.
[2017-10-04] MEDS: WARFARIN SOD 4 MG TAB PO SCH (17:06)
[2017-10-04] MEDS: ASPIRIN 81 MG ECTAB PO SCH (17:56)
[2017-10-04] MEDS ORDERED: INSULIN GLARGINE SOLOSTAR 100 UNITS/ML 3 ML PEN SQ SCH (21:00)
[2017-10-04] MEDS: LOVASTATIN 20 MG TAB PO SCH (21:32)
[2017-10-04] MEDS: AMLODIPINE BESYLATE 5 MG TAB PO SCH (21:33)
[2017-10-05] VITALS (16 sets, daily range): BP systolic 135–164; BP diastolic 55–82; PULSE 54–85; TEMP 36.4–37.6; O2SAT 92–99
[2017-10-05] MEDS: INSULIN ASPART 100 UNITS/ML 3 ML PEN SC SCH ×6 (00:32→21:16)
[2017-10-05] MEDS: LEVALBUTEROL 1.25MG/0.5ML NEB INH SCH ×6 (03:27→23:06)
[2017-10-05] MEDS: IPRATROPIUM BROMIDE NEB SOLN 0.02% 2.5 ML VIAL INH SCH ×6 (03:27→23:06)
[2017-10-05] MEDS: LACTOBACILLUS ACIDOPHILUS (FLORANEX) TAB PO SCH ×3 (08:10→16:32)
[2017-10-05] MEDS: INSULIN GLARGINE SOLOSTAR 100 UNITS/ML 3 ML PEN SQ SCH (08:11)
[2017-10-05] MEDS: CALCITRIOL 0.25 MCG CAP PO SCH (08:11)
[2017-10-05] MEDS: ISOSORBIDE MONONITRATE 30 MG TABCR PO SCH (08:12)
[2017-10-05] MEDS: GUAIFENESIN 600 MG TABCR PO SCH ×2 (08:12→21:12)
[2017-10-05] MEDS: ASPIRIN 81 MG ECTAB PO SCH (08:12)
[2017-10-05] MEDS: FERROUS SULFATE 325 MG TAB PO SCH (08:12)
[2017-10-05] MEDS: FUROSEMIDE 20 MG TAB PO SCH ×2 (08:12→16:32)
[2017-10-05] MEDS: PANTOprazole SOD 40 MG TAB PO SCH (08:12)
[2017-10-05] MEDS: CARVEDILOL 6.25 MG TAB PO SCH ×2 (08:13→19:41)
[2017-10-05] MEDS: POTASSIUM CHLORIDE 20 MEQ TABCR PO SCH (08:14)
[2017-10-05 08:58] LABS: CALCIUM 8.7 mg/dl (8.5-10.1); CREATININE 2.21 mg/dl (0.60-1.20); POTASSIUM 3.3 mmol/L (3.5-5.1)
--- NOTE | 2017-10-05 12:04 | Progress Note ---
Medicine Progress Note Date & Time of Visit: Oct 05, 2017 at 11:51. Subjective Pt was seen and examined Lying in bed with no distress Pt said that she feels the same She said that she does have SOB with exertion She had a 2 step done yesterday She was able to maintain her O2Sat above 88% on RA He cough improves Pt lives alone and she is very anxious to go home She said that she does not think that she feels good yet to go home She is interested to go to rehab for a few weeks to get her strength before going home Denies any chest pain, palpitation, dizziness Objective Last 8 Hrs Date Time Temp Pulse Resp B/P (MAP) Pulse Ox O2 Delivery O2 Flow Rate FiO2 10/05/17 08:12 36.6 74 18 135/55 (81) 97 Nasal Cannula 10/05/17 08:00 97 Nasal Cannula 2.0 10/05/17 07:04 74 18 98 Nasal Cannula 2.0 10/05/17 04:00 Nasal Cannula 2.0 Physical Exam: General- No acute distress Head- atraumatic Eyes- PERRL, EOMI ENT- oropharynx clear Neck- supple, no JVD Lungs- Decrease breath sound Heart- irregular rhythm; no murmur Abdomen- normal bowel sounds, soft Extremities- no calf tenderness, +edema Neuro- alert, oriented x 3; PERRL Skin- warm & dry Laboratory Results: Last 24 Hours Test 10/04/17 16:36 10/04/17 20:14 10/04/17 20:15 10/05/17 00:15 Bedside Glucose 183 mg/dl 328 mg/dl 319 mg/dl 222 mg/dl Test 10/05/17 04:33 10/05/17 06:39 10/05/17 08:11 10/05/17 11:09 Bedside Glucose 127 mg/dl 104 mg/dl 222 mg/dl Sodium Level 137 mmol/L Potassium Level 3.3 mmol/L Chloride Level 98 mmol/L Carbon Dioxide Level 31 mmol/L Anion Gap 8.0 mmol/L Blood Urea Nitrogen 65 mg/dl Creatinine 2.21 mg/dl Est Creatinine Clear Calc Drug Dose 24.1 ml/min Estimated GFR () 23.8 Estimated GFR (Non- 20.5 BUN/Creatinine Ratio 29.2 Random Glucose 161 mg/dl Calcium Level 8.7 mg/dl Assessment & Plan 77 year old female with history of COPD, Nocturnal Hypoxemia, A fib on Coumadin , CAD, DM, HTN presenting with dyspnea ACUTE HYPOXIC RESPIRATORY FAILURE INFLUENZA A vs ACUTE DIASTOLIC CHF EXACERBATION vs COPD EXACERBATION Positive for influenza A Continue Tamiflu V/Q scan showed no perfusion defects to suggest pulmonary embolus. CXR showed mild central pulmonary vascular congestion without overt edema. On Solumedrol, will taper steroid Continue lasix 60mg BID Continue Neb treatment Will need CPAP as an outpatient as per pulmonary team Cardiology and pulmonary on board Clinically improved 2 step exercise on discharge 10/05 Clinically improve Continue lasix 60mg PO BID Prednisone taper to 20mg daily continue Neb treatment She had a 2 step done yesterday and able to maintain her O2Sat above 88% or greater on RA Stable from pulmonary standpoint to discharge A FIB Rate controlled Continue PO Cardizem Continue carvedilol 6.25 mg BID INR 1.5 because pt received vit K Continue Coumadin Monitor INR ACUTE RENAL FAILURE ON CKD 4 Creatine on admission 1.63 Creatine 2.2 today Nephrology on board Case discussed with nephrology yesterday and recommended to continue lasix 60mg BID If creatine worsening, Lasix dose will need to decrease Monitor BMP in am EPISTAXIS Possible related to the oxygen Continue Nasal saline Resolved HTN On amlodipine 5 mg daily and lasix 60mg BID, Imdur and cardizem Starting on Carvedilol 6.25 mg BID D/C Losartan on discharge Monitor BP and if elevates pcp can restart losartan and titrate BP stable DM type 2 Most recent Hba1c 7.4 Continue Lantus Pharmacy on board for glycemic control HYPOKALEMIA K replaced Monitor electrolytes UTI Urine cx positive for Klebsiella pna complete course of Rocephin CAD will resume ASA On carvedilol and statin DVT Px on Coumadin INR 1.5 CODE STATUS FULL CODE DISPOSITION Waiting for placement to rehab Consultants: Maribell Current Inpatient Medications: Current Inpatient Medications Medications (Trade) Dose Ordered Sig/Rose Route Start Time Stop Time Status Last Admin Dose Admin Acetaminophen (Tylenol Tab) 650 mg Q4H PRN PO 09/23/17 13:15 10/23/17 13:14 Al Hydrox/Mg Hydrox/Simethicone (Maalox Max Susp) 15 ml Q4H PRN PO 09/23/17 13:15 10/23/17 13:14 Magnesium Hydroxide (Milk Of Magnesia Susp) 30 ml Q12H PRN PO 09/23/17 13:15 10/23/17 13:14 Ondansetron HCl (Zofran Inj) 4 mg Q6H PRN IV 09/23/17 13:15 10/23/17 13:14 Nitroglycerin (Nitrostat Tab) 0.4 mg UD PRN SL 09/23/17 13:15 10/23/17 13:14 Aspirin (Ecotrin Tab) 81 mg QAM PO 09/24/17 09:00 10/24/17 08:59 Future hold 10/05/17 08:12 81 MG Polyethylene (Miralax Powder Packet) 17 gm DAILY PRN PO 09/23/17 13:15 10/23/17 13:14 Ferrous Sulfate (Feosol Tab) 325 mg DAILY PO 09/24/17 09:00 10/24/17 08:59 10/05/17 08:12 325 MG Glucose (Glucose Chew Tab) 1 tab UD PRN PO 09/23/17 13:30 10/23/17 13:29 Isosorbide Mononitrate (Imdur Ext Rel Tab) 30 mg DAILY PO 09/24/17 09:00 10/24/17 08:59 10/05/17 08:12 30 MG Losartan Potassium (coZAAR TAB) 100 mg DAILY PO 09/24/17 09:00 10/24/17 08:59 Future Hold 09/25/17 08:51 100 MG Lovastatin (Mevacor Tab) 80 mg HS PO 09/23/17 21:00 10/23/17 20:59 10/04/17 21:32 80 MG Pantoprazole Sodium (Protonix Tab) 40 mg DAILY PO 09/24/17 09:00 10/24/17 08:59 10/05/17 08:12 40 MG Miscellaneous Information (Order Awaiting Action) 1 ea QS N/A 09/23/17 16:00 10/23/17 15:59 Glucose (Glucose 40% Gel) 15-30 GRAMS 15 GRAMS... UD PRN PO 09/23/17 13:30 10/23/17 13:29 Glucose (Glucose Chew Tab) 4-8 Tablets 4 Tabl... UD PRN PO 09/23/17 13:30 10/23/17 13:29 Dextrose (Dextrose 50% 50ML Syringe) 25-50ML OF 50% DW IV FOR... UD PRN IV 09/23/17 13:30 10/23/17 13:29 Glucagon (Glucagon Inj) 1 mg UD PRN SQ 09/23/17 13:30 10/23/17 13:29 Zolpidem Tartrate (Ambien Tab) 5 mg HS PRN PO 09/24/17 03:00 10/24/17 02:59 Calcitriol (Rocaltrol Cap) 0.5 mcg DAILY PO 09/25/17 09:00 10/25/17 08:59 10/05/17 08:11 0.5 MCG Potassium Chloride (Klor-Con Tab) 20 meq DAILY PO 09/25/17 09:00 10/25/17 08:59 10/05/17 08:14 20 MEQ Lactobacillus Acidophilus (Floranex Tab) 4 tab TIDM PO 09/26/17 11:30 10/26/17 11:29 10/05/17 11:14 4 TAB Ipratropium [place] (Atrovent 0.02% 0.5MG/2.5ML Neb) 0.5 mg Q4R INH 09/26/17 12:00 10/26/17 11:59 10/05/17 07:04 0.5 MG Levalbuterol (Xopenex 1.25MG/ 0.5ML Neb) 1.25 mg Q4R INH 09/26/17 12:00 10/26/17 11:59 10/05/17 07:04 1.25 MG Miscellaneous Information (Consult Glycemic Management Pharmacy) 1 ea UD PRN N/A 09/26/17 11:30 10/26/17 11:29 Guaifenesin (Mucinex Contr Rel Tab) 600 mg Q12 PO 09/27/17 21:00 10/27/17 20:59 10/05/17 08:12 600 MG Insulin Aspart (novoLOG ASPART) ACHS SC 09/28/17 11:00 10/28/17 10:59 10/05/17 11:16 4 UNITS Warfarin Sodium (Coumadin Tab) 4 mg SuTuTh@1600 PO 09/29/17 16:00 10/29/17 15:59 Future hold 10/04/17 17:06 4 MG Warfarin Sodium (Coumadin Tab) 2 mg MoWeFrSa@1600 PO 09/28/17 16:00 10/28/17 15:59 Future hold 10/03/17 17:19 2 MG Amlodipine Besylate (Norvasc Tab) 5 mg HS PO 10/01/17 21:00 10/31/17 20:59 10/04/17 21:33 5 MG Furosemide (Lasix Tab) 60 mg BID17 PO 10/01/17 17:00 10/31/17 16:59 10/05/17 08:12 60 MG Carvedilol (Coreg Tab) 6.25 mg BID PO 10/02/17 21:00 11/01/17 20:59 10/05/17 08:13 6.25 MG Insulin Glargine (Lantus Solostar Pen) see protocol DAILY SQ 10/04/17 09:00 11/03/17 08:59 10/05/17 08:11 15 UNITS Prednisone (PredniSONE TAB) 20 mg DAILY PO 10/05/17 09:00 11/04/17 08:59 10/05/17 08:11 20 MG Insulin Glargine (Lantus Solostar Pen) HS SQ 10/05/17 21:00 11/03/17 20:59
--- NOTE | 2017-10-05 12:09 | Pharmacy Progress Note ---
Glycemic Control Progress Note Date of Service Oct 05, 2017. Scope Glycemic Pharmacist consulted for glycemic control to write orders per [facility] inpatient glycemic control protocol. Objective Accuchecks BSG (last 24hrs): Test 10/04/17 16:36 10/04/17 20:14 10/04/17 20:15 10/05/17 00:15 Bedside Glucose 183 mg/dl (70-90) 328 mg/dl (70-90) 319 mg/dl (70-90) 222 mg/dl (70-90) Test 10/05/17 04:33 10/05/17 06:39 10/05/17 08:11 10/05/17 11:09 Bedside Glucose 127 mg/dl (70-90) 104 mg/dl (70-90) 222 mg/dl (70-90) Random Glucose 161 mg/dl (70-99) HbA1c: Test 09/24/17 04:46 Hemoglobin A1c 7.4 % (4.5-5.6) H Recent Pertinent Medications Outpatient Anti-diabetic Regimen: * Lantus 25 units Q AM + 11 units Q PM * Novolog SSI The patient is currently receiving: * Basal Insulin: Lantus SQ BID: 0 units if less than 100, 15 units if 100-180, 20 units if above 180 * Correctional Insulin: Regular Insulin Correction per scale ACHS Goal Range: Low 110 mg/dL - High 140 mg/dL Correction Factor: 25 mg/dL/unit * Prandial Insulin: Per carb ratio of 1 unit per 9 grams CHO consumed Risk Factors for Insulin Resistance: * Diet: ordered T2DM/AHA diet/Low Na diet Assessment & Plan ASSESSMENT: 10/05/17 * Glycemic control has varied over the last 2 days, due to changing steroid doses and initially excess basal insulin on board then lack of enough basal insulin * Fasting BSG improved today w/ 35 units of basal insulin on board, but also received 8 + 4 units of Novolog correction overnight. Continuing the same basal scale may lead to improved BSGs in the future as the dose reaches steady- state. No changes at this time. * Post-prandial BSGs have been climbing later in the day with the once daily Prednisone administration in the AM. She may need more prandial insulin with lunch and /or dinner * It appears that patient's carbs are not being covered with CR today? 0 units of Novolog given w/ breakfast, pre-lunch BSG 222 (from 104 pre-breakfast) RECOMMEND: * Continuing Lantus SQ BID: * 0 units if less than 100 * 15 units if 100-180 * 20 units if above 180 * Continue correction factor 25 mg/dl/unit * Cover all carbs consumed with ordered CR * Changing carb ratio to 1 unit per 8 grams CHO consumed with dinner only, continue 1 unit per 9 grams CHO consumed w/ all other meals * Continue goal range Low 110 mg/dL - High 140 mg/dL * Please note that the plan above was derived based on current level of insulin resistance and hospital stress. These recommendations are appropriate for inpatient admission only. Plan of care upon discharge will need to be reassessed to avoid potential outpatient hypo/hyperglycemia. Thank you.
[2017-10-05] MEDS ORDERED: POTASSIUM CHLORIDE 20 MEQ TABCR PO ONE (15:15)
[2017-10-05] MEDS: WARFARIN SOD 2 MG TAB PO SCH (16:33)
[2017-10-05] MEDS ORDERED: INSULIN GLARGINE SOLOSTAR 100 UNITS/ML 3 ML PEN SQ SCH (21:00)
[2017-10-05] MEDS: AMLODIPINE BESYLATE 5 MG TAB PO SCH (21:35)
[2017-10-05] MEDS: LOVASTATIN 20 MG TAB PO SCH (21:35)
[2017-10-06 03:43] VITALS: PULSE 74; O2SAT 99
[2017-10-06] MEDS: LEVALBUTEROL 1.25MG/0.5ML NEB INH SCH ×2 (03:43→07:18)
[2017-10-06] MEDS: IPRATROPIUM BROMIDE NEB SOLN 0.02% 2.5 ML VIAL INH SCH ×2 (03:43→07:18)
[2017-10-06 07:20] VITALS: PULSE 72; O2SAT 99
[2017-10-06 08:18] VITALS: BP 153/72; PULSE 75; TEMP 36.6; O2SAT 99
[2017-10-06 08:24] LABS: INR 2.2 (0.9-1.1)
[2017-10-06] MEDS: POTASSIUM CHLORIDE 20 MEQ TABCR PO SCH (08:28)
[2017-10-06] MEDS: ASPIRIN 81 MG ECTAB PO SCH (08:28)
[2017-10-06] MEDS: CALCITRIOL 0.25 MCG CAP PO SCH (08:28)
[2017-10-06] MEDS: FUROSEMIDE 20 MG TAB PO SCH ×2 (08:28→17:41)
[2017-10-06] MEDS: GUAIFENESIN 600 MG TABCR PO SCH (08:29)
[2017-10-06] MEDS: FERROUS SULFATE 325 MG TAB PO SCH (08:29)
[2017-10-06] MEDS: PANTOprazole SOD 40 MG TAB PO SCH (08:29)
[2017-10-06] MEDS: CARVEDILOL 6.25 MG TAB PO SCH (08:29)
[2017-10-06] MEDS: LACTOBACILLUS ACIDOPHILUS (FLORANEX) TAB PO SCH ×3 (08:29→17:41)
[2017-10-06] MEDS: ISOSORBIDE MONONITRATE 30 MG TABCR PO SCH (08:29)
[2017-10-06] MEDS ORDERED: INSULIN GLARGINE SOLOSTAR 100 UNITS/ML 3 ML PEN SQ SCH (08:30)
[2017-10-06] MEDS: INSULIN ASPART 100 UNITS/ML 3 ML PEN SC SCH ×3 (08:33→17:44)
[2017-10-06 08:38] LABS: CALCIUM 8.5 mg/dl (8.5-10.1); POTASSIUM 3.3 mmol/L (3.5-5.1)
[2017-10-06] MEDS ORDERED: POTASSIUM CHLORIDE PWD 20 MEQ PACK PO ONE (10:45)
[2017-10-06] MEDS ORDERED: IPRATROPIUM BROMIDE NEB SOLN 0.02% 2.5 ML VIAL INH PRN (11:00)
[2017-10-06] MEDS ORDERED: LEVALBUTEROL 1.25MG/0.5ML NEB INH PRN (11:00)
--- NOTE | 2017-10-06 11:03 | Nephrology Progress Note ---
Nephrology Progress Note Date of Service: Oct 06, 2017. Subjective 77 yo female with karlee on ckd with volume overload and breathing better. creatinine is improved. pt oob to chair. getting physical therapy. pt still having difficulty with dealing with her fatigue. pt is agreeable to rehab and prefers [facility] since her daughter works there. Objective Date Time Temp Pulse Resp B/P (MAP) Pulse Ox O2 Delivery O2 Flow Rate FiO2 10/06/17 08:18 36.6 75 18 153/72 (99) 99 3.0 10/06/17 07:20 72 20 99 Nasal Cannula 3.0 10/06/17 03:43 74 16 99 Nasal Cannula 3.0 10/06/17 01:20 Nasal Cannula 3.0 10/05/17 23:48 37.6 64 18 163/74 (103) 92 Room Air 10/05/17 23:06 62 16 99 Room Air 10/05/17 21:30 74 163/74 (103) 97 Room Air 10/05/17 19:11 36.4 85 18 164/82 (109) 96 Room Air 10/05/17 19:01 76 18 98 Room Air 10/05/17 18:54 Room Air 10/05/17 15:53 68 18 96 Nasal Cannula 2.0 10/05/17 15:40 36.7 71 22 160/72 (101) 98 Nasal Cannula 2.0 10/05/17 14:56 98 10/05/17 12:00 97 Nasal Cannula 2.0 10/05/17 11:51 36.6 63 18 145/64 (91) 96 Nasal Cannula 10/05/17 11:09 54 18 97 Nasal Cannula 2.0 Physical Exam: General-aaox3 Eyes-no scleral icterus ENT-mmm Neck-supple Lungs-diminished breath sounds at bases Heart-regular Abdomen-bs+ s/nt/nd Extremities-no c/c/e Neuro-nonfocal Current Inpatient Medications Medications (Trade) Dose Ordered Sig/Rose Route Start Time Stop Time Status Last Admin Dose Admin Acetaminophen (Tylenol Tab) 650 mg Q4H PRN PO 09/23/17 13:15 10/23/17 13:14 Al Hydrox/Mg Hydrox/Simethicone (Maalox Max Susp) 15 ml Q4H PRN PO 09/23/17 13:15 10/23/17 13:14 Magnesium Hydroxide (Milk Of Magnesia Susp) 30 ml Q12H PRN PO 09/23/17 13:15 10/23/17 13:14 Ondansetron HCl (Zofran Inj) 4 mg Q6H PRN IV 09/23/17 13:15 10/23/17 13:14 Nitroglycerin (Nitrostat Tab) 0.4 mg UD PRN SL 09/23/17 13:15 10/23/17 13:14 Aspirin (Ecotrin Tab) 81 mg QAM PO 09/24/17 09:00 10/24/17 08:59 Future hold 10/06/17 08:28 81 MG Polyethylene (Miralax Powder Packet) 17 gm DAILY PRN PO 09/23/17 13:15 10/23/17 13:14 Ferrous Sulfate (Feosol Tab) 325 mg DAILY PO 09/24/17 09:00 10/24/17 08:59 10/06/17 08:29 325 MG Glucose (Glucose Chew Tab) 1 tab UD PRN PO 09/23/17 13:30 10/23/17 13:29 Isosorbide Mononitrate (Imdur Ext Rel Tab) 30 mg DAILY PO 09/24/17 09:00 10/24/17 08:59 10/06/17 08:29 30 MG Losartan Potassium (coZAAR TAB) 100 mg DAILY PO 09/24/17 09:00 10/24/17 08:59 Future Hold 09/25/17 08:51 100 MG Lovastatin (Mevacor Tab) 80 mg HS PO 09/23/17 21:00 10/23/17 20:59 10/05/17 21:35 80 MG Pantoprazole Sodium (Protonix Tab) 40 mg DAILY PO 09/24/17 09:00 10/24/17 08:59 10/06/17 08:29 40 MG Miscellaneous Information (Order Awaiting Action) 1 ea QS N/A 09/23/17 16:00 10/23/17 15:59 Glucose (Glucose 40% Gel) 15-30 GRAMS 15 GRAMS... UD PRN PO 09/23/17 13:30 10/23/17 13:29 Glucose (Glucose Chew Tab) 4-8 Tablets 4 Tabl... UD PRN PO 09/23/17 13:30 10/23/17 13:29 Dextrose (Dextrose 50% 50ML Syringe) 25-50ML OF 50% DW IV FOR... UD PRN IV 09/23/17 13:30 10/23/17 13:29 Glucagon (Glucagon Inj) 1 mg UD PRN SQ 09/23/17 13:30 10/23/17 13:29 Zolpidem Tartrate (Ambien Tab) 5 mg HS PRN PO 09/24/17 03:00 10/24/17 02:59 Calcitriol (Rocaltrol Cap) 0.5 mcg DAILY PO 09/25/17 09:00 10/25/17 08:59 10/06/17 08:28 0.5 MCG Potassium Chloride (Klor-Con Tab) 20 meq DAILY PO 09/25/17 09:00 10/25/17 08:59 10/06/17 08:28 20 MEQ Lactobacillus Acidophilus (Floranex Tab) 4 tab TIDM PO 09/26/17 11:30 10/26/17 11:29 10/06/17 08:29 4 TAB Ipratropium [place] (Atrovent 0.02% 0.5MG/2.5ML Neb) 0.5 mg Q4R INH 09/26/17 12:00 10/26/17 11:59 10/06/17 07:18 0.5 MG Levalbuterol (Xopenex 1.25MG/ 0.5ML Neb) 1.25 mg Q4R INH 09/26/17 12:00 10/26/17 11:59 10/06/17 07:18 1.25 MG Miscellaneous Information (Consult Glycemic Management Pharmacy) 1 ea UD PRN N/A 09/26/17 11:30 10/26/17 11:29 Guaifenesin (Mucinex Contr Rel Tab) 600 mg Q12 PO 09/27/17 21:00 10/27/17 20:59 10/06/17 08:29 600 MG Warfarin Sodium (Coumadin Tab) 4 mg SuTuTh@1600 PO 09/29/17 16:00 10/29/17 15:59 Future hold 10/04/17 17:06 4 MG Warfarin Sodium (Coumadin Tab) 2 mg MoWeFrSa@1600 PO 09/28/17 16:00 10/28/17 15:59 Future hold 10/05/17 16:33 2 MG Amlodipine Besylate (Norvasc Tab) 5 mg HS PO 10/01/17 21:00 10/31/17 20:59 10/05/17 21:35 5 MG Furosemide (Lasix Tab) 60 mg BID17 PO 10/01/17 17:00 10/31/17 16:59 10/06/17 08:28 60 MG Carvedilol (Coreg Tab) 6.25 mg BID PO 10/02/17 21:00 11/01/17 20:59 10/06/17 08:29 6.25 MG Prednisone (PredniSONE TAB) 20 mg DAILY PO 10/05/17 09:00 11/04/17 08:59 10/06/17 08:30 20 MG Insulin Glargine (Lantus Solostar Pen) HS SQ 10/05/17 21:00 11/03/17 20:59 10/05/17 21:42 20 UNITS Insulin Aspart (novoLOG ASPART) SLIDING SCALE ACHS@0700,1100,2100 SC 10/05/17 21:00 11/04/17 20:59 10/06/17 08:33 5 UNITS Insulin Aspart (novoLOG ASPART) SLIDING SCALE DAILY@1615 SC 10/05/17 16:15 11/04/17 16:14 10/05/17 16:36 6 UNITS Insulin Glargine (Lantus Solostar Pen) 25 units DAILY SQ 10/06/17 08:30 11/05/17 08:29 10/06/17 08:38 25 UNITS Ipratropium [place] (Atrovent 0.02% 0.5MG/2.5ML Neb) 0.5 mg Q4R PRN INH 10/06/17 11:00 11/05/17 10:59 UNV Levalbuterol (Xopenex 1.25MG/ 0.5ML Neb) 1.25 mg Q4R PRN INH 10/06/17 11:00 11/05/17 10:59 UNV Last 24 Hours Test 10/05/17 11:09 10/05/17 16:33 10/05/17 16:34 10/05/17 20:04 Bedside Glucose 222 mg/dl 287 mg/dl 302 mg/dl 388 mg/dl Test 10/06/17 07:48 10/06/17 07:55 Prothrombin Time 22.5 SECONDS Prothromb Time International Ratio 2.2 Sodium Level 140 mmol/L Potassium Level 3.3 mmol/L Chloride Level 101 mmol/L Carbon Dioxide Level 32 mmol/L Anion Gap 6.0 mmol/L Blood Urea Nitrogen 61 mg/dl Creatinine 2.00 mg/dl Est Creatinine Clear Calc Drug Dose 26.4 ml/min Estimated GFR () 26.8 Estimated GFR (Non- 23.2 BUN/Creatinine Ratio 30.7 Random Glucose 88 mg/dl Calcium Level 8.5 mg/dl Bedside Glucose 85 mg/dl Assessment & Plan KARLEE on [id number]. creatinine peaked at 3.35 and improved to 2 now. was on lasix 40mg po bid. creatinine baseline is 2. ok with restarting the lasix outpt dosage and rechecking bmp again on thursday. hypokalemia: k in the low 3s and being repleted this morning.
[2017-10-06 13:54] VITALS: Ht 160 cm; Wt 104.7 kg
--- NOTE | 2017-10-06 14:00 | Pharmacy Progress Note ---
Pharmacy Glycemic Short Note 2 Date of Service Oct 06, 2017. OUTPATIENT ANTIDIABETIC REGIMEN: * Lantus 25 units qam and 11 units qhs + SSI Test 10/02/17 16:43 10/02/17 16:44 10/02/17 20:39 10/03/17 02:24 Bedside Glucose 56 mg/dl (70-90) 58 mg/dl (70-90) 94 mg/dl (70-90) 84 mg/dl (70-90) Test 10/03/17 06:18 10/03/17 06:52 10/03/17 11:41 Random Glucose 93 mg/dl (70-99) Bedside Glucose 102 mg/dl (70-90) 70 mg/dl (70-90) ASSESSMENT: * See progress note from 10/05/17 for more background info, in short: * Pt receiving SQ basal bolus insulin regimen for hyperglycemia secondary to baseline DM and steroids - remains on once daily prednisone 20 mg * Postprandial BSGs were significantly elevated yesterday - most likely related to missed prandial doses and/or lower basal insulin given in the AM * Fasting BSG much better today but I don't want patient to get a lower dose of Lantus and then have elevated BSGs throughout the day again * Will plan to transition back to outpatient regimen, with a higher dose of Lantus in the AM - will be appropriate for qAM prednisone as well * Will plan to continue same CF/CR since postprandial BSGs look much better today PLAN FOR INPATIENT GLYCEMIC CONTROL: * Basal insulin * Increase Lantus to 25 units qAM (no scale) * Change PM Lantus to 11 units (hold if BSG < 100) * Bolus insulin * NovoLog per scale ACHS or Q6hrs while NPO * Goal Range: Low 110 mg/dL - High 140 mg/dL * Correction Factor: 25 mg/dL/unit * Nutritional / Prandial insulin per carb ratio of 1 unit per 9 grams CHO consumed (1 unit per 8 gms w/ dinner only) Thank you. Outpatient recommendations: * A1c acceptable - okay to continue outpatient regimen upon discharge * If patient to be discharged on steroids, please contact glycemic pharmacist for recommendations. Patient may just need a tighter sliding scale depending on dose being used.
[2017-10-06] MEDS: WARFARIN SOD 4 MG TAB PO SCH (15:34)
[2017-10-06 15:39] VITALS: BP 148/92; PULSE 72; TEMP 36.3; O2SAT 98
[2017-10-06] MEDS ORDERED: CMD4 PO (18:24)
[2017-10-06] MEDS ORDERED: ASPEC81 PO (18:24)
[2017-10-06] MEDS ORDERED: CMD2 PO (18:24)
[2017-10-06] MEDS ORDERED: CRG625 PO (18:24)
[2017-10-06] MEDS ORDERED: INSDGIPEN SQ (18:24)
[2017-10-06] MEDS ORDERED: LSX20 PO (18:24)
[2017-10-06] MEDS ORDERED: NRV5 PO (18:24)
[2017-10-06] MEDS ORDERED: PRED10TA PO (18:27)
--- NOTE | 2017-10-06 18:32 | Progress Note ---
Internal Med Progress Note Date of Service: Oct 06, 2017. Provider Documentation: SUBJECTIVE: Patient examined at bedside. On nasal cannula when sitting in chair. Patient had 2 step walk test without the oxygen and saturated 98%. Patient does not need portable oxygen. Patient does use oxygen at night when sleeping. Patient denies new concerns or pain. OBJECTIVE: General- No acute distress Head- atraumatic Eyes- PERRL, EOMI ENT- oropharynx clear Neck- supple, no JVD Lungs- Decrease breath sound Heart- irregular rhythm; no murmur Abdomen- normal bowel sounds, soft Extremities- no calf tenderness, +edema bilaterally Neuro- alert, oriented x 3 Skin- warm & dry ASSESSMENT & PLAN: Patient presented to the hospital for sudden onset of severe shortness of breath During this hospital stay patient was found to have: 1) Influenza A and treated with Tamiflu, solumedrol and then transitioned to prednisone (V/Q scan showed no perfusion defects to suggest pulmonary embolus, CXR showed mild central pulmonary vascular congestion without overt edema) 2) Chronic Hypoxia - passed 2 step test and does not need portable home oxygen for day time, however patients uses oxygen at night at home. Will need CPAP as an outpatient as per inpatient pulmonary team. This can be ordered by the patient's primary care doctor. 3) Acute on chronic diastolic heart failure On Lasix 60 mg BID 4) ACUTE RENAL FAILURE ON CKD 4, Creatine on admission 1.63 However patient requires high dose Lasix 60 mg BID in order to prevent fluid overload Discharge creatinine of 2, patient should have labs repeated by primary medical doctor as per inpatient nephrology service 5) A FIB Rate controlled Continue PO Cardizem Continue carvedilol 6.25 mg BID Continue Coumadin Monitor INR as outpatient 6) EPISTAXIS - Resolved, Possible related to the oxygen 7) HTN On amlodipine 5 mg daily and lasix 60mg BID, Imdur and cardizem Starting on Carvedilol 6.25 mg BID stop home dose Losartan 8) DM type 2 Most recent Hba1c 7.4 Continue Lantus 9) HYPOKALEMIA discharge day serum potassium is 3.3 but patient also received oral potassium supplements Hypokalemia is secondary to diuretic Lasix 10) UTI Urine cx positive for Klebsiella, completed course of Rocephin 11) CAD resume ASA On carvedilol and statin Discharge to home with home health services Follow up appointments 10/07/2017 5:15 PM [facility] 10/09/2017 11:30 AM Kerry Waterman DO Family Practice [facility] Vital Signs: Date Time Temp Pulse Resp B/P (MAP) Pulse Ox O2 Delivery O2 Flow Rate FiO2 10/06/17 16:00 Nasal Cannula 3.0 10/06/17 15:39 36.3 72 20 148/92 (110) 98 Nasal Cannula 3.0 10/06/17 08:18 36.6 75 18 153/72 (99) 99 3.0 10/06/17 08:00 Nasal Cannula 3.0 10/06/17 07:20 72 20 99 Nasal Cannula 3.0 10/06/17 03:43 74 16 99 Nasal Cannula 3.0 10/06/17 01:20 Nasal Cannula 3.0 10/05/17 23:48 37.6 64 18 163/74 (103) 92 Room Air 10/05/17 23:06 62 16 99 Room Air 10/05/17 21:30 74 163/74 (103) 97 Room Air 10/05/17 19:11 36.4 85 18 164/82 (109) 96 Room Air 10/05/17 19:01 76 18 98 Room Air 10/05/17 18:54 Room Air Lab Results: Results Past 24 Hours Test 10/05/17 20:04 10/06/17 07:48 10/06/17 07:55 10/06/17 11:51 Range/Units Bedside Glucose 388 85 160 70-90 mg/dl Prothrombin Time 22.5 9.0-12.0 SECONDS Prothromb Time International Ratio 2.2 0.9-1.1 Sodium Level 140 136-145 mmol/L Potassium Level 3.3 3.5-5.1 mmol/L Chloride Level 101 98-107 mmol/L Carbon Dioxide Level 32 21-32 mmol/L Anion Gap 6.0 3-11 mmol/L Blood Urea Nitrogen 61 7-18 mg/dl Creatinine 2.00 0.60-1.20 mg/dl Est Creatinine Clear Calc Drug Dose 26.4 ml/min Estimated GFR () 26.8 Estimated GFR (Non- 23.2 BUN/Creatinine Ratio 30.7 10-20 Random Glucose 88 70-99 mg/dl Calcium Level 8.5 8.5-10.1 mg/dl
--- NOTE | 2017-10-06 18:51 | Discharge Instructions ---
Discharge Instructions Date of Service Oct 06, 2017. Admission Reason for Admission: CHF Discharge Discharge Diagnosis / Problem: acute on chronic diastolic heart failure, influenza, hypoxia, KARLEE Discharge Goals Goal(s): Decrease discomfort, Improve function, Improve disease control Activity Recommendations Activity Limitations: per Instructions/Follow-up section Shower/Bathe: no limitations . Instructions / Follow-Up Instructions / Follow-Up Patient presented to the hospital for sudden onset of severe shortness of breath During this hospital stay patient was found to have: 1) Influenza A and treated with Tamiflu, solumedrol and then transitioned to prednisone (V/Q scan showed no perfusion defects to suggest pulmonary embolus, CXR showed mild central pulmonary vascular congestion without overt edema) 2) Chronic Hypoxia - passed 2 step test and does not need portable home oxygen for day time, however patients uses oxygen at night at home. Will need CPAP as an outpatient as per inpatient pulmonary team. This can be ordered by the patient's primary care doctor. 3) Acute on chronic diastolic heart failure On Lasix 60 mg BID 4) ACUTE RENAL FAILURE ON CKD 4, Creatine on admission 1.63 However patient requires high dose Lasix 60 mg BID in order to prevent fluid overload Discharge creatinine of 2, patient should have labs repeated by primary medical doctor as per inpatient nephrology service 5) A FIB Rate controlled Continue PO Cardizem Continue carvedilol 6.25 mg BID Continue Coumadin Monitor INR as outpatient 6) EPISTAXIS - Resolved, Possible related to the oxygen 7) HTN On amlodipine 5 mg daily and lasix 60mg BID, Imdur and cardizem Starting on Carvedilol 6.25 mg BID stop home dose Losartan 8) DM type 2 Most recent Hba1c 7.4 Continue Lantus 9) HYPOKALEMIA discharge day serum potassium is 3.3 but patient also received oral potassium supplements Hypokalemia is secondary to diuretic Lasix 10) UTI Urine cx positive for Klebsiella, completed course of Rocephin 11) CAD resume ASA On carvedilol and statin Discharge to home with home health services Follow up appointments 10/07/2017 5:15 PM [facility] 10/09/2017 11:30 AM Kerry Waterman, Family Practice [facility] Call your Primary Care doctor if any of the following symptoms or problems start or get worse: * Shortness of breath or difficulty breathing * Wake up at night short of breath * Chest pain * Cough * Swelling of your hands, feet, or legs * More fatigued or tired with your normal activity * Palpitations - sudden fast heart beats WEIGHT * Weigh yourself every morning after using the bathroom. * Use the same scale. * Wear the same amount of clothing. * Write your weight down on a chart. * Call your Primary Care doctor if you gain more than 2-3 pounds in 1-2 days. MEDICATIONS * Use this discharge instruction sheet for medication instructions. * Take your medications at the time your doctor ordered. * Do not skip a dose of your medicines. * If you miss a dose of medicine, take it as soon as possible, but DO NOT DOUBLE A DOSE. * Read your medicine information when you get home. * Know all of the side effects of your medicine. If in doubt, ask your pharmacist * Call your Primary Care doctor's office if you have any side effects. * Be sure all of your doctors know what medicine and herbs you take (including cold, flu, and herbal medicine). Take the following with you to your follow-up doctor appointments: * Weight Chart * Medication List * List of questions Do not drink excessive alcohol, beer or wine. Current Hospital Diet Patient's current hospital diet: AHA Diet (Heart Healthy), Diabetes Type 2 Diet , Low Sodium Diet (2gm Na) Discharge Diet Recommended Diet: AHA Diet (Heart Healthy), Low Sodium Diet (2gm Na), Diabetes Type 2 Diet Pending Studies Studies pending at discharge: no Laboratory Results 10/03/17 06:18 10/06/17 07:48 Test 09/23/17 09:42 09/23/17 09:46 09/23/17 10:38 09/24/17 04:46 Influenza Type A Antigen Neg for Influ A (NEG) Influenza Type B Antigen Neg for Influ B (NEG) Total Bilirubin 0.7 mg/dl (0.2-1) Direct Bilirubin 0.2 mg/dl (0-0.2) Aspartate Amino Transf (AST/SGOT) 20 U/L (15-37) Alanine Aminotransferase (ALT/SGPT) 23 U/L (12-78) Alkaline Phosphatase 106 U/L (45-117) Pro-B-Type Natriuretic Peptide 3563 pg/ml (0-1800) Total Protein 6.8 gm/dl (6.4-8.2) Albumin 3.3 gm/dl (3.4-5.0) Lipase 140 U/L (73-393) Venous Blood pH 7.40 (7.36-7.41) Venous Blood Partial Pressure CO2 47 mmHg (38.0-50.0) Venous Blood Partial Pressure O2 36 mmHg Venous Blood HCO3 29 mmol/L Venous Blood Oxygen Saturation 66.0 % Venous Blood Base Excess 3.1 mEq/L Lactic Acid Level 1.9 mmol/L (0.4-2.0) Estimated Average Glucose 166 mg/dl Hemoglobin A1c 7.4 % (4.5-5.6) Triglycerides Level 67 mg/dl (0-150) Cholesterol Level 160 mg/dl (0-200) HDL Cholesterol 64 mg/dl LDL Cholesterol, Calculated 83 mg/dl VLDL Cholesterol, Calculated 13 mg/dl Cholesterol/HDL Ratio 2.5 Test 09/24/17 12:58 09/25/17 12:50 09/25/17 17:15 09/27/17 04:56 Troponin I < 0.015 ng/ml (0-0.045) Urine Color YELLOW Urine Appearance TURBID (CLEAR) Urine pH 5.0 (4.5-7.5) Urine Specific [place] 1.019 (1.000-1.030) Urine Protein TRACE (NEG) Urine Glucose (UA) NEG (NEG) Urine Ketones NEG (NEG) Urine Occult Blood 1+ (NEG) Urine Nitrite NEG (NEG) Urine Bilirubin NEG (NEG) Urine Urobilinogen NEG (NEG) Urine Leukocyte Esterase LARGE (NEG) Urine WBC (Auto) >30 /hpf (0-5) Urine RBC (Auto) 5-10 /hpf (0-4) Urine Hyaline Casts (Auto) 1-5 /lpf (0-5) Urine Epithelial Cells (Auto) >30 /lpf (0-5) Urine Bacteria (Auto) 4+ (NEG) Urine Pathogenic Casts /lpf (0) Urine Random Creatinine 82.0 mg/dl Urine Random Sodium 14 mEq/L Urine Random Urea Nitrogen 713 mg/dl Influenza Type A (RT-PCR) POS for Influ A (NEG) Influenza Type B (RT-PCR) Neg for Influ B (NEG) Total Creatine Kinase 84 U/L (26-192) Test 09/28/17 04:10 09/29/17 11:47 2/2/18 04:15 10/03/17 06:18 Activated Partial Thromboplast Time 36.4 SECONDS (21.0-31.0) Partial Thromboplastin Ratio 1.4 Magnesium Level 2.3 mg/dl (1.8-2.4) Beta-Hydroxybutyric Acid 1.36 mg/dL (0.2-2.81) Thyroid Stimulating Hormone (TSH) 0.241 uIu/ml (0.300-4.500) Immature Granulocyte % (Auto) 2.4 % White Blood Count 5.36 K/uL (4.8-10.8) Red Blood Count 3.27 M/uL (4.2-5.4) 3.28 M/uL (4.2-5.4) Hemoglobin 10.1 g/dL (12.0-16.0) Hematocrit 30.4 % (37-47) Mean Corpuscular Volume 93.0 fL (80-100) 93.6 fL (80-100) Mean Corpuscular Hemoglobin 30.9 pg (25-34) 30.8 pg (25-34) Mean Corpuscular Hemoglobin Concent 33.2 g/dl (32-36) 32.9 g/dl (32-36) Platelet Count 121 K/uL (130-400) Mean Platelet Volume 10.3 fL (7.4-10.4) 9.9 fL (7.4-10.4) Neutrophils (%) (Auto) 80.6 % Lymphocytes (%) (Auto) 9.9 % Monocytes (%) (Auto) 6.7 % Eosinophils (%) (Auto) 0.2 % Basophils (%) (Auto) 0.2 % Neutrophils # (Auto) 4.32 K/uL (1.4-6.5) Lymphocytes # (Auto) 0.53 K/uL (1.2-3.4) Monocytes # (Auto) 0.36 K/uL (0.11-0.59) Eosinophils # (Auto) 0.01 K/uL (0-0.5) Basophils # (Auto) 0.01 K/uL (0-0.2) Immature Granulocyte # (Auto) 0.13 K/uL (0.00-0.02) RDW Standard Deviation 47.5 fL (36.4-46.3) RDW Coefficient of Variation 13.9 % (11.5-14.5) Nucleated RBC Absolute Count (auto) 0.06 K/uL (0-0) Nucleated Red Blood Cells % 1.0 % Test 10/06/17 07:48 10/06/17 11:51 Prothrombin Time 22.5 SECONDS (9.0-12.0) Prothromb Time International Ratio 2.2 (0.9-1.1) Anion Gap 6.0 mmol/L (3-11) Est Creatinine Clear Calc Drug Dose 26.4 ml/min Estimated GFR () 26.8 Estimated GFR (Non- 23.2 BUN/Creatinine Ratio 30.7 (10-20) Calcium Level 8.5 mg/dl (8.5-10.1) Bedside Glucose 160 mg/dl (70-90) Date/Time Source Procedure Growth Status 09/23/17 09:46 Blood Blood Culture - Final NO GROWTH Complete 09/25/17 12:10 Sputum Expectorated Sputum Gram Stain - Final Complete 09/25/17 12:10 Sputum Expectorated Sputum Sputum Culture - Final LIGHT NORMAL JUAN M. Complete 09/25/17 12:50 Urine , Clean Catch Urine Culture - Final Klebsiella Pneumoniae Complete Hemoglobin A1c Test 09/24/17 04:46 Range/Units Estimated Average Glucose 166 mg/dl Hemoglobin A1c 7.4 H 4.5-5.6 % Lipid Panel Test 09/24/17 04:46 Range/Units Triglycerides Level 67 0-150 mg/dl Cholesterol Level 160 0-200 mg/dl HDL Cholesterol 64 mg/dl Cholesterol/HDL Ratio 2.5 LDL Cholesterol, Calculated 83 mg/dl Medical Emergencies . Who to Call and When: Call 911 or go to the Emergency Room if: * If at any time you feel your situation is an emergency * You have tightness or pain in your chest that does not go away with rest or Nitroglycerin * You are very short of breath even with rest . Non-Emergent Contact Non-Emergency issues call your: Primary Care Provider Call Non-Emergent contact if: you have any medication questions . . "Provider Documentation" section prepared by Corey Prado. . VTE Core Measure Inpt VTE Proph given/why not?: Warfarin (Coumadin)
--- NOTE | 2017-10-06 18:55 | Discharge Summary ---
Discharge Summary Date of Service Oct 06, 2017. Discharge Summary Admission Date: Sep 23, 2017 at 12:18 Discharge Date: Oct 06, 2017 Principal Diagnosis: 1) Influenza A 2) Chronic Hypoxia 3) Acute on chronic diastolic heart failure 4) ACUTE RENAL FAILURE ON CKD 4 5) A FIB Rate controlled 6) EPISTAXIS - Resolved, Possible related to the oxygen 7) HTN 8) DM type 2 9) Hypokalemia is secondary to diuretic Lasix 10) UTI 11) CAD Consultations: [facility] Medication Reconciliation New Medications: Prednisone Tab (Prednisone) 10 Mg Tab 0 PO DAILY for 3 Days, #3 TAB take 10 mg daily for 2 days, 5 mg daily for 2 days, then stop Amlodipine Besylate (Amlodipine Besylate) 5 Mg Tab 5 MG PO HS for 30 Days, #30 TAB Aspirin (Aspirin EC Low Dose) 81 Mg Ectab 81 MG PO QAM for 30 Days, #30 Carvedilol (Carvedilol) 6.25 Mg Tab 6.25 MG PO BID for 30 Days, #60 TAB Furosemide (Furosemide) 20 Mg Tab 60 MG PO BID17 for 30 Days, #180 TAB Insulin Glargine (Lantus Solostar) 100 Unit/Ml Inj 25 UNITS SQ DAILY for 30 Days, #5 ML Warfarin Sod (Coumadin) 4 Mg Tab 4 MG PO SuTuTh@1600 for 12 Days, #12 TAB Warfarin Sod (Coumadin) 2 Mg Tab 2 MG PO MoWeFrSa@1600 for 16 Days, #16 TAB Continued Medications: Budesonide (Inhalation) (Pulmicort Respules 0.5MG/2ML) 0.5 Mg/2 Ml Akilah 1 VIAL NEB BID, #120 Calcitriol (Calcitriol) 0.25 Mcg Cap 0.5 MCG PO DAILY, CAP Diltiazem HCl (Diltiazem Cd) 120 Mg Capcr 120 MG PO BID for 30 Days, #60 Ferrous Sulfate (Ferrous Sulfate) 325 Mg Tab 325 MG PO DAILY Glucose-Vitamin C (Glucose) 1 Chw Chw 1 TAB PO UD PRN for LOW SUGAR Home O2 Therapy (Oxygen) Gas 3.5 LITERS NA HS Insulin Aspart (Novolog) 100 Units/Ml Inj ACHS SLIDING SCALE Isosorbide Mononitrate (Isosorbide Mononitrate ER) 30 Mg Tabcr 30 MG PO DAILY for 30 Days, #30 Levalbuterol Hcl (Levalbuterol Hcl) 1.25 Mg/3 Ml Neb 3 ML INH Q4 PRN for SOB/Wheezing Lovastatin (Mevacor) 40 Mg Tab 80 MG PO HS Hold for 1 month Nitroglycerin (Nitrostat) 0.4 Mg Sub 0.4 MG UT PRN PRN for Chest Pain, BTL Omeprazole (Omeprazole) 20 Mg Tab 20 MG PO DAILY Potassium Chloride (Klor-Con M20) 20 Meq Tabcr 20 MEQ PO DAILY, TAB Solifenacin (Vesicare) 5 Mg Tab 5 MG PO DAILY, TAB [Utibron] () INH UD Discontinued Medications: Furosemide (Lasix) 40 Mg Tab 1 TAB PO BID for 30 Days, #60 TAB 5 Refills Insulin Glargine (Lantus) 100 Unit/Ml Inj 25 UNITS SQ QAM, VIAL Insulin Glargine (Lantus) 100 Unit/Ml Inj 11 UNITS SQ EVENING MEAL, VIAL Losartan Potassium (Cozaar) 100 Mg Tab 100 MG PO DAILY Warfarin Sod (Jantoven) 4 Mg Tab 4 MG PO UD 4mg daily on Thu, Warfarin Sodium (Coumadin) 2 Mg Tab 2 MG PO UD Take 2mg daily on MON, TU, WED, FRI, SAT Admission Information HPI (per Admitting provider): This is a 77 yo F with past medical hx of COPD on nocturnal 3 L 02 via [place], Paroxysmal Afib on Coumadin , CAD , Type 2 DM on insulin , HTN woke up this morning with sudden onset of severe SOB , felt she could not breath , very weak and tired could not get out of bed , denied of having palpitation , or dizzy spell had sharp pain on mid chest epigastric area , no substernal chest heaviness pt uses nocturnal 02 , she continued to use the 02 , gave her minimum benefit In ER -pt found to be in rapid Afib RVR , Hypertensive urgency with BP 193/104 on Coumadin INR 1.2 pt mentions of taking her all home meds -including Lasix , Coumadin , BP meds did not take any meds in AM due to respiratory distress Cxray shows -pulmonary congestion , BNP > 3000 pt denies of any fever -says she is always cold , no nasal congestion , cough , headache , no generalized body ache or flu like symptom at baseline pt has chronic LAUREANO , but symptom was markedly worse this AM Physical Exam (per Admitting): General Appearance: + mild distress (due to shortness of breath ) Head: normocephalic, atraumatic Eyes: normal inspection, PERRL, EOMI, sclerae normal Neck: thyroid normal, no JVD, no carotid bruits, trachea midline Respiratory/Chest: + decreased breath sounds, + crackles, + rales Cardiovascular: + tachycardia, + irregularly irregular Abdomen/GI: normal bowel sounds, non tender, soft Extremities/Musculoskelatal: + pedal edema (+ 3 pedal edema ) Neurologic/Psych: no motor/sensory deficits, alert, normal mood/affect, oriented x 3 Hospital Course Patient presented to the hospital for sudden onset of severe shortness of breath During this hospital stay patient was found to have: 1) Influenza A and treated with Tamiflu, solumedrol and then transitioned to prednisone (V/Q scan showed no perfusion defects to suggest pulmonary embolus, CXR showed mild central pulmonary vascular congestion without overt edema) 2) Chronic Hypoxia - passed 2 step test and does not need portable home oxygen for day time, however patients uses oxygen at night at home. Will need CPAP as an outpatient as per inpatient pulmonary team. This can be ordered by the patient's primary care doctor. 3) Acute on chronic diastolic heart failure On Lasix 60 mg BID 4) ACUTE RENAL FAILURE ON CKD 4, Creatine on admission 1.63 However patient requires high dose Lasix 60 mg BID in order to prevent fluid overload Discharge creatinine of 2, patient should have labs repeated by primary medical doctor as per inpatient nephrology service 5) A FIB Rate controlled Continue PO Cardizem Continue carvedilol 6.25 mg BID Continue Coumadin Monitor INR as outpatient 6) EPISTAXIS - Resolved, Possible related to the oxygen 7) HTN On amlodipine 5 mg daily and lasix 60mg BID, Imdur and cardizem Starting on Carvedilol 6.25 mg BID stop home dose Losartan 8) DM type 2 Most recent Hba1c 7.4 Continue Lantus 9) HYPOKALEMIA discharge day serum potassium is 3.3 but patient also received oral potassium supplements Hypokalemia is secondary to diuretic Lasix 10) UTI Urine cx positive for Klebsiella, completed course of Rocephin 11) CAD resume ASA On carvedilol and statin Discharge to home with home health services Follow up appointments 10/07/2017 5:15 PM [facility], [facility] 10/09/2017 11:30 AM Kerry Waterman DO [facility] Total time spent on discharge = 60 minutes This includes examination of the patient, discharge planning, medication reconciliation, and communication with other providers. Discharge Instructions Patient presented to the hospital for sudden onset of severe shortness of breath During this hospital stay patient was found to have: 1) Influenza A and treated with Tamiflu, solumedrol and then transitioned to prednisone (V/Q scan showed no perfusion defects to suggest pulmonary embolus, CXR showed mild central pulmonary vascular congestion without overt edema) 2) Chronic Hypoxia - passed 2 step test and does not need portable home oxygen for day time, however patients uses oxygen at night at home. Will need CPAP as an outpatient as per inpatient pulmonary team. This can be ordered by the patient's primary care doctor. 3) Acute on chronic diastolic heart failure On Lasix 60 mg BID 4) ACUTE RENAL FAILURE ON CKD 4, Creatine on admission 1.63 However patient requires high dose Lasix 60 mg BID in order to prevent fluid overload Discharge creatinine of 2, patient should have labs repeated by primary medical doctor as per inpatient nephrology service 5) A FIB Rate controlled Continue PO Cardizem Continue carvedilol 6.25 mg BID Continue Coumadin Monitor INR as outpatient 6) EPISTAXIS - Resolved, Possible related to the oxygen 7) HTN On amlodipine 5 mg daily and lasix 60mg BID, Imdur and cardizem Starting on Carvedilol 6.25 mg BID stop home dose Losartan 8) DM type 2 Most recent Hba1c 7.4 Continue Lantus 9) HYPOKALEMIA discharge day serum potassium is 3.3 but patient also received oral potassium supplements Hypokalemia is secondary to diuretic Lasix 10) UTI Urine cx positive for Klebsiella, completed course of Rocephin 11) CAD resume ASA On carvedilol and statin Discharge to home with home health services Follow up appointments 10/07/2017 5:15 PM [facility], [facility] 10/09/2017 11:30 AM Kerry Waterman DO [facility] Call your Primary Care doctor if any of the following symptoms or problems start or get worse: Shortness of breath or difficulty breathing Wake up at night short of breath Chest pain Cough Swelling of your hands, feet, or legs More fatigued or tired with your normal activity Palpitations - sudden fast heart beats WEIGHT Weigh yourself every morning after using the bathroom. Use the same scale. Wear the same amount of clothing. Write your weight down on a chart. Call your Primary Care doctor if you gain more than 2-3 pounds in 1-2 days. MEDICATIONS Use this discharge instruction sheet for medication instructions. Take your medications at the time your doctor ordered. Do not skip a dose of your medicines. If you miss a dose of medicine, take it as soon as possible, but DO NOT DOUBLE A DOSE. Read your medicine information when you get home. Know all of the side effects of your medicine. If in doubt, ask your pharmacist Call your Primary Care doctor's office if you have any side effects. Be sure all of your doctors know what medicine and herbs you take (including cold, flu, and herbal medicine). Take the following with you to your follow-up doctor appointments: Weight Chart Medication List List of questions Do not drink excessive alcohol, beer or wine.
[2017-10-06 18:59] VITALS: BP 148/92; PULSE 72; TEMP 36.3; O2SAT 98
[2017-10-07] MEDS ORDERED: CRG625 PO (16:23)
[2017-10-07] MEDS ORDERED: ASPEC81 PO (16:23)
[2017-10-07] MEDS ORDERED: LSX20 PO (16:23)
[2017-10-07] MEDS ORDERED: PRED10TA PO (16:23)
[2017-10-07] MEDS ORDERED: CMD4 PO (16:23)
[2017-10-07] MEDS ORDERED: NRV5 PO (16:23)
[2017-10-07] MEDS ORDERED: INSDGIPEN SQ (16:23)
[2017-10-07] MEDS ORDERED: CMD2 PO (16:23)
[2017-10-07] MEDS ORDERED: ASPCH81 OR (16:25)
== END 2017-10-06 19:35 | disposition home health service (06) | DRG 291 ==
LOC: EDBD 09:15 → C.EDB 09:16 → UNDOADMIN 12:18 → C.2E 12:18 → ENRESERV 12:47 → CANRESERV 12:47 → ENRESERV 15:39 → C.MS4W 10-05 18:36
PROVIDERS: ADMIT Hospitalist; ATTEND Hospitalist
DX: I13.0 Hypertensive heart and chronic kidney disease with heart failure and stage 1 through stage 4 chronic kidney disease, or unspecified chronic kidney disease (principal); I50.33 Acute on chronic diastolic (congestive) heart failure; J96.21 Acute and chronic respiratory failure with hypoxia; N17.0 Acute kidney failure with tubular necrosis; J44.0 Chronic obstructive pulmonary disease with (acute) lower respiratory infection; J44.1 Chronic obstructive pulmonary disease with (acute) exacerbation; N18.4 Chronic kidney disease, stage 4 (severe); E87.1 Hypo-osmolality and hyponatremia; N39.0 Urinary tract infection, site not specified; Z68.41 Body mass index [BMI] 40.0-44.9, adult; I48.0 Paroxysmal atrial fibrillation; J10.1 Influenza due to other identified influenza virus with other respiratory manifestations; J20.9 Acute bronchitis, unspecified; B96.1 Klebsiella pneumoniae [K. pneumoniae] as the cause of diseases classified elsewhere; I16.0 Hypertensive urgency; R04.0 Epistaxis; E87.6 Hypokalemia; T50.1X5A Adverse effect of loop [high-ceiling] diuretics, initial encounter; D64.9 Anemia, unspecified; E11.65 Type 2 diabetes mellitus with hyperglycemia; E11.22 Type 2 diabetes mellitus with diabetic chronic kidney disease; I25.10 Atherosclerotic heart disease of native coronary artery without angina pectoris; I87.8 Other specified disorders of veins; E78.5 Hyperlipidemia, unspecified; K21.9 Gastro-esophageal reflux disease without esophagitis; E66.01 Morbid (severe) obesity due to excess calories; Z99.81 Dependence on supplemental oxygen; Z87.891 Personal history of nicotine dependence; Z86.73 Personal history of transient ischemic attack (TIA), and cerebral infarction without residual deficits; Z86.711 Personal history of pulmonary embolism; Z86.19 Personal history of other infectious and parasitic diseases; Z95.5 Presence of coronary angioplasty implant and graft; Z96.642 Presence of left artificial hip joint; Z90.721 Acquired absence of ovaries, unilateral; Z90.49 Acquired absence of other specified parts of digestive tract; Z79.01 Long term (current) use of anticoagulants; Z79.4 Long term (current) use of insulin; Z79.51 Long term (current) use of inhaled steroids; Z88.1 Allergy status to other antibiotic agents; Z88.5 Allergy status to narcotic agent; Z88.6 Allergy status to analgesic agent; Z88.8 Allergy status to other drugs, medicaments and biological substances; Z80.43 Family history of malignant neoplasm of testis; Z80.49 Family history of malignant neoplasm of other genital organs; Z80.8 Family history of malignant neoplasm of other organs or systems

== ENCOUNTER → 2017-10-27 | Outpatient (CLI) | payer OTHER ==
[~2017-10-27] MED LIST changes: +ASPCH81 OR; +ASPEC81 PO; -CALC0.5C2 PO; +CMD2 PO; +CMD4 PO; +CRG625 PO; -FURO40TA3 PO; -INSDGI SQ; +INSDGIPEN SQ; -LOSA100T65 PO; +LSX20 PO; -LVQ500 PO; +MCRK20 PO; +METO2.5T PO; +NRV5 PO; +PRED10TA PO; +RCL25 PO; -WARF2TAB PO; -WARF4TAB8 PO
--- NOTE | 2017-10-27 11:55 | DIAGNOSTIC IMAGING REPORT ---
L FOOT MIN 3 VIEWS ROUTINE CLINICAL HISTORY: 77 years-old Female presenting with RECURRENCE OF WOUND. TECHNIQUE: Frontal, oblique, and lateral views of the left foot were obtained. COMPARISON: 08/19/2016. FINDINGS: Grossly a bandage overlies the medial aspect of the first toe. No bandage or marker definitively identifies the site of reported wound. Allowing for this, no evidence of osseous erosion or suspicious periosteal reaction to suggest osteomyelitis. Diffuse subcutaneous edema suggested. Atherosclerosis. Redemonstration of the hallux valgus deformity. Chronic subluxation of the proximal phalanx of the second toe relative to the head of the second metatarsal. Chronic deformities of the proximal phalanges of the third and fifth toes, likely posttraumatic. No acute fracture or acute malalignment. Bone spur noted at the insertion of the Achilles tendon and origin of the plantar fascia. Degenerative changes also evident in the midfoot. IMPRESSION: 1. No convincing radiographic evidence of osteomyelitis. If there is continuing clinical concern, noncontrast MR is more sensitive for this diagnosis. 2. Chronic findings as above. Electronically signed by: Roel Dorman M.D. 10/27/2017 11:54 AM Dictated Date/Time: 10/27/2017 11:50 AM
== END | disposition home or self-care (01) ==
LOC: C.RAD 11:10
PROVIDERS: ATTEND Physician Assistant
DX: T81.30XA Disruption of wound, unspecified, initial encounter (principal); X58.XXXA Exposure to other specified factors, initial encounter

== ENCOUNTER 2017-12-10 10:56 | Inpatient (IN) | payer OTHER ==
[2017-12-10] VITALS (8 sets, daily range): BP systolic 139–184; BP diastolic 67–84; PULSE 66–88; TEMP 36.7–37.4; O2SAT 93–97; Ht 160 cm; Wt 99.0 kg
[~2017-12-10] VITALS: Ht 160 cm; Wt 99.0 kg
[~2017-12-10 10:56] MED LIST changes: -ASPEC81 PO; +CARV25TA2 PO; -CRG625 PO; +FRS/40 PO; +FURO80TA63 PO; -LSX20 PO; -NRV5 PO; -PRED10TA PO
[2017-12-10] MEDS ORDERED: FUROSEMIDE 40 MG/4 ML VIAL IV STA (11:12)
[2017-12-10] MEDS ORDERED: ALBUT/IPRATROP 3MG/0.5MG NEB 3 ML VIAL INH ONE ×2 (11:15)
[2017-12-10 11:49] LABS: HEMATOCRIT 36.1 % (37-47); HEMOGLOBIN 12.1 g/dL (12.0-16.0); IG# 0.02 K/uL (0.00-0.02); LYMPH % 9.7 %; LYMPH ABS # 0.66 K/uL (1.2-3.4); MEAN CELL VOLUME 91.4 fL (80-100); MEAN CORPUSCULAR HEMOGLOBIN 30.6 pg (25-34); MEAN CORPUSCULAR HGB CONC 33.5 g/dl (32-36); MEAN PLATELET VOLUME 10.4 fL (7.4-10.4); MONO % 6.4 %; MONO ABS # 0.43 K/uL (0.11-0.59); NEUT % 83.6 %; NEUT ABS # 5.66 K/uL (1.4-6.5); PLATELET COUNT 116 K/uL (130-400); RED CELL DISTRIBUTION WIDTH CV 14.2 % (11.5-14.5); WHITE BLOOD COUNT 6.77 K/uL (4.8-10.8)
--- NOTE | 2017-12-10 11:50 | DIAGNOSTIC IMAGING REPORT ---
CHEST ONE VIEW PORTABLE CLINICAL HISTORY: 77 years-old Female presenting with Pt c/o SOB. TECHNIQUE: Portable upright AP view of the chest was obtained. COMPARISON: 09/29/2017. FINDINGS: Atherosclerosis of aortic arch. Cardiac silhouette enlarged. Pulmonary vascular prominence. Decreased aeration of the left lung base with increased focal opacity. Trace left pleural effusion may be present. No pneumothorax. Degenerative changes of the thoracic spine. IMPRESSION: 1. Interval development of left basilar consolidation, which raises concern for pneumonia. Trace left pleural effusion may also be present. Asymmetric pulmonary edema is considered less likely, which would be unexpected to exhibit this degree of density. 2. Cardiomegaly with mild volume overload. Electronically signed by: Roel Dorman M.D. 12/10/2017 11:48 AM Dictated Date/Time: 12/10/2017 11:46 AM
[2017-12-10] MEDS ORDERED: PIPERACILLIN/TAZOBACTAM 4.5 GM/100ML D5W IV STA (11:57)
[2017-12-10] MEDS ORDERED: LEVAQUIN 750MG / 150ML D5W IV ONE (12:00)
--- NOTE | 2017-12-10 12:02 | EMERGENCY ROOM VISIT NOTE ---
History Report prepared by Natalya: Sruy Caruso Under the Supervision of: Dr. Pratik Campbell M.D. First contact with patient: 11:06 Chief Complaint: SHORTNESS OF BREATH Stated Complaint: SHORTNESS OF BREATH History of Present Illness The patient is a 77 year old female who presents to the Emergency Room with complaints of constant shortness of breath beginning [employer]OR. The patient is typically on 4L NC/O2 at nighttime. Last night she states that she put her oxygen on before bed, but she was found this morning with the oxygen turned off. She does not know how that happened. The patient was brought to the ED by ambulance. She was placed on a NRB en route and her O2 saturation improved. EMS reports that the patient had a fall last night and has since been experiencing increased confusion. She was recently discharged from the hospital after being treated for pneumonia. The patient denies any chest pain at this time. She is still feeling short of breath despite improvement in her O2 saturation with oxygen. The patient is on Coumadin. 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 A total of 10 systems reviewed and were otherwise negative. Past Medical & Surgical Medical Problems: (1) Acute respiratory failure with hypoxia (2) Asthma (3) Atrial fibrillation (4) C. difficile colitis (5) CHF (congestive heart failure) (6) Chronic anticoagulation (7) CKD (chronic kidney disease), stage IV (8) COPD (chronic obstructive pulmonary disease) (9) CVA (cerebral vascular accident) (10) Diabetes mellitus, type II (11) Diabetic neuropathy (12) Diabetic peripheral neuropathy associated with type 2 diabetes mellitus (13) Gastroparesis (14) GERD (gastroesophageal reflux disease) (15) History of coronary artery disease (16) History of GI bleed (17) Hyperlipidemia (18) Hypertension (19) Migraine (20) Pulmonary embolism (21) Sleep apnea Surgical Problems: (1) H/O heart artery stent (2) History of appendectomy (3) History of total left hip arthroplasty (4) Hx of removal of ovary Family History FH: cancer MOTHER (cervical) BROTHER (skin, testicular) Social History Smoking Status: Former Smoker Alcohol Use: none Drug Use: none Marital Status: Occupation Status: retired Current/Historical Medications Scheduled Aspirin (Aspirin Low Strength), 1 TAB OR DAILY Budesonide (Inhalation) (Pulmicort Respules 0.5MG/2ML), 1 VIAL NEB BID Calcitriol (Calcitriol), 0.5 MCG PO DAILY Carvedilol (Coreg), 1 TAB PO BID Diltiazem HCl (Diltiazem Cd), 120 MG PO BID Ferrous Sulfate (Ferrous Sulfate), 325 MG PO DAILY Furosemide (Lasix), 1 TAB PO DAILY am Furosemide (Lasix), 40 MG PO daily, pm Home O2 Therapy (Oxygen), 3.5 LITERS NA HS Insulin Aspart (Novolog), ACHS Insulin Glargine (Lantus Solostar), 25 UNITS SQ DAILY Isosorbide Mononitrate (Isosorbide Mononitrate ER), 30 MG PO DAILY Lovastatin (Mevacor), 80 MG PO HS Metolazone (Zaroxolyn), 2.5 MG PO WK Omeprazole (Omeprazole), 20 MG PO DAILY Potassium Chloride (Klor-Con M20), 20 MEQ PO DAILY Solifenacin (Vesicare), 5 MG PO DAILY Warfarin Sod (Coumadin), 4 MG PO SuTuTh@1600 Warfarin Sod (Coumadin), 2 MG PO MoWeFrSa@1600 [Utibron], INH UD Scheduled PRN Glucose-Vitamin C (Glucose), 1 TAB PO UD PRN for LOW SUGAR Levalbuterol Hcl (Levalbuterol Hcl), 3 ML INH Q4 PRN for SOB/Wheezing Nitroglycerin (Nitrostat), 0.4 MG UT PRN PRN for Chest Pain Allergies Coded Allergies: Codeine (Verified Allergy, Unknown, UNKNOWN, 12/10/17) INFO FROM PT Aspirin (Verified Adverse Reaction, Intermediate, (ULCER), 12/10/17) Venlafaxine (Verified Adverse Reaction, Intermediate, DROWINESS/ CONFUSION , 12/10/17) Cephalexin (Verified Adverse Reaction, Mild, DROWSINESS, UNABLE TO DRIVE, UPSET STOMACH, 12/10/17) Oxycodone (Verified Adverse Reaction, Mild, n/v, 12/10/17) gmg Physical Exam Vital Signs Date Time Temp Pulse Resp B/P (MAP) Pulse Ox O2 Delivery O2 Flow Rate FiO2 12/10/17 12:46 86 18 184/68 97 Nasal Cannula 3.0 12/10/17 11:52 84 95 35 12/10/17 11:51 84 30 95 BiPAP/CPAP 35 12/10/17 11:41 BiPAP 12/10/17 11:09 38.0 94 28 163/80 87 Room Air 12/10/17 11:09 87 Room Air 12/10/17 11:07 87 Room Air 12/10/17 11:07 90 Physical Exam GENERAL: Awake, alert, ill-appearing, in moderate distress HENT: Normocephalic, atraumatic. Oropharynx unremarkable. EYES: Normal conjunctiva. Sclera non-icteric. NECK: Supple. No nuchal rigidity. FROM. No JVD. RESPIRATORY: Rales at the bases. CARDIAC: Regular rate, normal rhythm. Extremities warm and well perfused. Pulses equal. ABDOMEN: Soft, non-distended. No tenderness to palpation. No rebound or guarding. No masses. RECTAL: Deferred. MUSCULOSKELETAL: Chest examination reveals no tenderness. The back is symmetrical on inspection without obvious abnormality. There is no CVA tenderness to palpation. No joint edema. LOWER EXTREMITIES: Calves are equal size bilaterally and non-tender. No edema. No discoloration. NEURO: Normal sensorium. No sensory or motor deficits noted. SKIN: No rash or jaundice noted. Medical Decision & Procedures ER Provider Diagnostic Interpretation: Radiology results as stated below per my review and radiologist interpretation: CHEST ONE VIEW PORTABLE CLINICAL HISTORY: 77 years-old Female presenting with Pt c/o SOB. TECHNIQUE: Portable upright AP view of the chest was obtained. COMPARISON: 09/29/2017. FINDINGS: Atherosclerosis of aortic arch. Cardiac silhouette enlarged. Pulmonary vascular prominence. Decreased aeration of the left lung base with increased focal opacity. Trace left pleural effusion may be present. No pneumothorax. Degenerative changes of the thoracic spine. IMPRESSION: 1. Interval development of left basilar consolidation, which raises concern for pneumonia. Trace left pleural effusion may also be present. Asymmetric pulmonary edema is considered less likely, which would be unexpected to exhibit this degree of density. 2. Cardiomegaly with mild volume overload. Electronically signed by: Roel Dorman M.D. 12/10/2017 11:48 AM Dictated Date/Time: 12/10/2017 11:46 AM Laboratory Results 12/10/17 11:33 Red Blood Count 3.95, Mean Corpuscular Volume 91.4, Mean Corpuscular Hemoglobin 30.6, Mean Corpuscular Hemoglobin Concent 33.5, Mean Platelet Volume 10.4, Neutrophils (%) (Auto) 83.6, Lymphocytes (%) (Auto) 9.7, Monocytes (%) (Auto) 6.4, Eosinophils (%) (Auto) 0.0, Basophils (%) (Auto) 0.0, Neutrophils # (Auto) 5.66, Lymphocytes # (Auto) 0.66, Monocytes # (Auto) 0.43, Eosinophils # (Auto) 0.00, Basophils # (Auto) 0.00 12/10/17 11:33 Test 12/10/17 11:33 12/10/17 11:37 12/10/17 11:38 12/10/17 12:00 White Blood Count 6.77 K/uL (4.8-10.8) Red Blood Count 3.95 M/uL (4.2-5.4) Hemoglobin 12.1 g/dL (12.0-16.0) Hematocrit 36.1 % (37-47) Mean Corpuscular Volume 91.4 fL (80-100) Mean Corpuscular Hemoglobin 30.6 pg (25-34) Mean Corpuscular Hemoglobin Concent 33.5 g/dl (32-36) Platelet Count 116 K/uL (130-400) Mean Platelet Volume 10.4 fL (7.4-10.4) Neutrophils (%) (Auto) 83.6 % Lymphocytes (%) (Auto) 9.7 % Monocytes (%) (Auto) 6.4 % Eosinophils (%) (Auto) 0.0 % Basophils (%) (Auto) 0.0 % Neutrophils # (Auto) 5.66 K/uL (1.4-6.5) Lymphocytes # (Auto) 0.66 K/uL (1.2-3.4) Monocytes # (Auto) 0.43 K/uL (0.11-0.59) Eosinophils # (Auto) 0.00 K/uL (0-0.5) Basophils # (Auto) 0.00 K/uL (0-0.2) RDW Standard Deviation 47.0 fL (36.4-46.3) RDW Coefficient of Variation 14.2 % (11.5-14.5) Immature Granulocyte % (Auto) 0.3 % Immature Granulocyte # (Auto) 0.02 K/uL (0.00-0.02) Prothrombin Time 24.2 SECONDS (9.0-12.0) Prothromb Time International Ratio 2.3 (0.9-1.1) Anion Gap 8.0 mmol/L (3-11) Est Creatinine Clear Calc Drug Dose 26.0 ml/min Estimated GFR () 24.9 Estimated GFR (Non- 21.5 BUN/Creatinine Ratio 21.6 (10-20) Calcium Level 9.4 mg/dl (8.5-10.1) Total Bilirubin 1.3 mg/dl (0.2-1) Aspartate Amino Transf (AST/SGOT) 22 U/L (15-37) Alanine Aminotransferase (ALT/SGPT) 16 U/L (12-78) Alkaline Phosphatase 99 U/L (45-117) Total Creatine Kinase 43 U/L (26-192) Creatine Kinase MB < 0.5 ng/ml (0.5-3.6) Creatine Kinase MB Ratio (0-3.0) Troponin I < 0.015 ng/ml (0-0.045) Total Protein 6.8 gm/dl (6.4-8.2) Albumin 3.0 gm/dl (3.4-5.0) Globulin 3.8 gm/dl (2.5-4.0) Albumin/Globulin Ratio 0.8 (0.9-2) Chemistry Specimen Hemolysis Bedside Lactic Acid Venous 1.60 mmol/L (0.90-1.70) Influenza Type A Antigen Neg for Influ A (NEG) Influenza Type B Antigen Neg for Influ B (NEG) Urine Color YELLOW Urine Appearance CLOUDY (CLEAR) Urine pH 5.0 (4.5-7.5) Urine Specific [place] 1.012 (1.000-1.030) Urine Protein TRACE (NEG) Urine Glucose (UA) NEG (NEG) Urine Ketones NEG (NEG) Urine Occult Blood 1+ (NEG) Urine Nitrite NEG (NEG) Urine Bilirubin NEG (NEG) Urine Urobilinogen NEG (NEG) Urine Leukocyte Esterase SMALL (NEG) Urine WBC (Auto) 10-30 /hpf (0-5) Urine RBC (Auto) 0-4 /hpf (0-4) Urine Hyaline Casts (Auto) 1-5 /lpf (0-5) Urine Epithelial Cells (Auto) 0-5 /lpf (0-5) Urine Bacteria (Auto) 3+ (NEG) Test 12/10/17 12:43 Arterial Blood pH 7.50 (7.35-7.45) Arterial Blood Partial Pressure CO2 48 mmHg (35-46) Arterial Blood Partial Pressure O2 133 mm/Hg (80-95) Arterial Blood HCO3 36 mmol/L (19-24) Arterial Blood Oxygen Saturation 98.9 % (90-95) Arterial Blood Base Excess 11.6 mEq/L (-9-1.8) Arterial Blood Gas Delivery FIO2 35% Jonathan Test POS (POS) Labs reviewed by ED physician. Medications Administered Medications (Trade) Dose Ordered Sig/Rose Route Start Time Stop Time Status Last Admin Dose Admin Furosemide (Lasix Inj) 40 mg NOW STAT IV 12/10/17 11:12 12/10/17 11:14 DC 12/10/17 12:07 40 MG Albuterol/ Ipratropium (Duoneb) 12 ml ONE ONCE INH 12/10/17 11:15 12/10/17 11:16 DC 12/10/17 11:32 12 ML Piperacillin Sod/ Tazobactam Sod (Zosyn Iv) 4.5 gm NOW STAT IV 12/10/17 11:57 12/10/17 12:01 DC 12/10/17 12:46 4.5 GM ECG Per My Interpretation Indication: SOB/dyspnea Rate (beats per minute): 84 Rhythm: atrial fibrillation Findings: other (old inferior infarct; no ST elevation or depression) ED Course 1106: Past medical records reviewed. The patient was evaluated in room C10. A complete history and physical examination was performed. 1112: Lasix 40 mg IV 1115: DuoNeb 12 ml INH, DuoNeb 12 ml INH 1157: Zosyn 4.5 gm IV 1200: Levofloxacin 750 mg IV 1212: Potassium Chloride 10 meq IV, Potassium Chloride 10 meq IV, Potassium Chloride 40 meq PO 1214: I reassessed the patient at this time. She is resting comfortably. I discussed the results and treatment plan with the patient. I answered all pertaining questions that she had. She expressed understanding and verbalized agreement. 1216: I spoke with CATHERINE Duarte. We discussed the case. The patient will be evaluated by the [facility] for further management. Medical Decision Differential diagnosis: Etiologies such as infections, reactive airway disease, pneumonia, pneumothorax , COPD, CHF, cardiac ischemia, pulmonary embolism, musculoskeletal, gastrointestinal, as well as others were entertained. This is a 77-year-old female who presents emergency department hypoxic and complaining of shortness of breath. Due to the patient's distress she was placed on BiPAP with immediate improvement in her symptoms. The patient sounds wet on examination therefore she was started on Lasix however her x-ray is concerning for pneumonia. For this reason the patient was pancultured and started on antibiotics including Zosyn and Levaquin. I did discuss the case with the hospitalist service who agreed to admit the patient. Patient was in agreement with the treatment plan. Medication Reconcilliation Current Medication List: was personally reviewed by me Blood Pressure Screening Patient's blood pressure: Elevated blood pressure Refer to hospitalist. Consults Time Called: 1215 Consulting Physician: CATHERINE Duarte Returned Call: 1216 I spoke with CATHERINE Duarte. We discussed the case. The patient will be evaluated by the [facility] for further management. Impression Primary Impression: Pneumonia Critical Care I have personally spent greater than 30 minutes of critical care time in the direct management of this patient. This includes bedside care, interpretation of diagnostic studies, and testing, discussion with consultants, patient, and family members, and other required patient management activities. This 30 minutes is in excess of all separately billable procedures. Scribe Attestation The scribe's documentation has been prepared under my direction and personally reviewed by me in its entirety. I confirm that the note above accurately reflects all work, treatment, procedures, and medical decision making performed by me. Departure Information Dispostion Being Evaluated By Hospitalist Referrals Kerry Waterman D.O. (PCP) Patient Instructions My [facility] Problem Qualifiers Primary Impression: Pneumonia Pneumonia type: due to unspecified organism Laterality: unspecified laterality Lung location: unspecified part of lung Qualified Codes: J18.9 - Pneumonia, unspecified organism
[2017-12-10 12:09] LABS: ALT/SGPT 16 U/L (12-78); BLOOD UREA NITROGEN 46 mg/dl (7-18); CALCIUM 9.4 mg/dl (8.5-10.1); CARBON DIOXIDE 38 mmol/L (21-32); CREATININE 2.13 mg/dl (0.60-1.20); GLUCOSE 208 mg/dl (70-99); POTASSIUM 2.9 mmol/L (3.5-5.1); SODIUM 131 mmol/L (136-145)
[2017-12-10 12:11] LABS: INR 2.3 (0.9-1.1)
[2017-12-10] MEDS ORDERED: POTASSIUM CHLORIDE 10 MEQ / 100ML WTR IV STA ×2 (12:12)
[2017-12-10] MEDS ORDERED: POTASSIUM CHLORIDE 10 MEQ TABCR PO STA (12:12)
[2017-12-10 12:16] LABS: ALKALINE PHOSPHATASE 99 U/L (45-117); AST/SGOT 22 U/L (15-37); CKMB < 0.5 ng/ml (0.5-3.6); TOTAL PROTEIN 6.8 gm/dl (6.4-8.2)
[2017-12-10 12:40] LABS: INFLUENZA B ANTIGEN Neg for Influ B (NEG)
[2017-12-10] MEDS ORDERED: ONDANSETRON INJ 2 MG/ML 2 ML VIAL IV PRN (13:00)
[2017-12-10] MEDS ORDERED: ACETAMINOPHEN 325 MG TAB PO PRN (13:00)
[2017-12-10] MEDS ORDERED: CMD4 PO (13:28)
[2017-12-10] MEDS ORDERED: OXGN (13:28)
[2017-12-10] MEDS ORDERED: CMD2 PO (13:28)
[2017-12-10] MEDS ORDERED: INSDGIPEN SQ (13:28)
[2017-12-10] MEDS ORDERED: ATRINS NEB (13:28)
[2017-12-10] MEDS ORDERED: DEXTROSE 50% 50 ML SYR IV PRN (14:00)
[2017-12-10] MEDS ORDERED: GLUCAGON FOR INJ 1 MG VIAL SQ PRN (14:00)
[2017-12-10] MEDS ORDERED: GLUCOSE 40% GEL 15 GM TUBE PO PRN (14:00)
[2017-12-10] MEDS ORDERED: GLUCOSE 10 TABS/TUBE PO PRN (14:00)
[2017-12-10] MEDS ORDERED: PHARMACY GLYCEMIC MGMT CONSULT PRN (14:04)
[2017-12-10] MEDS ORDERED: POTASSIUM CHLORIDE 20 MEQ TABCR PO STA (14:25)
--- NOTE | 2017-12-10 14:55 | History and Physical ---
History & Physical Date & Time of Service: Dec 10, 2017 ~ 12:30 Chief Complaint: Shortness of breath, generalized weakness Primary Care Physician: Kerry Waterman D.O. History of Present Illness 77-year-old female who presents the ED with shortness of breath and generalized weakness. Patient does live home alone. History is somewhat limited from her in some information is obtained from the daughter. She reports that around 1130 last night she fell while trying to get to the bathroom. She says that her legs just gave out from under her whenever she fell. She denies any associated loss of consciousness, chest pain, or palpitations. She reports that she keeps a telephone on the floor in the event she falls. She called her daughter who came to help her back into bed. Patient reports she did get up later time throughout the night and walk to the bathroom. She reports she felt extremely short of breath. She has had increasing cough and shortness of breath for the past couple of weeks. Patient reports cough is nonproductive. She wears oxygen at nighttime. No lightheadedness, dizziness, diaphoresis, or syncopal events. She denies abdominal pain, nausea, vomiting, and diarrhea. No fevers or chills. She denies any urinary symptoms. Patient reports her daughter manages her pillbox for her. She is mostly unaware of what medication she takes. As per review outpatient records, patient was evaluated by cardiology 3 weeks ago and had her Lasix and carvedilol increased, started on metolazone, and amlodipine was discontinued. In the ED, patient was 87% on room air she was then placed on BiPAP. During my exam, patient was transitioned to 2 L nasal cannula and is saturating well. Chest x-ray shows a left basilar consolidation suggestive of pneumonia. Per ER provider's evaluation, he felt that the patient was volume overloaded so she was given 40 mg IV Lasix. She has a low-grade fever at 38.0, no leukocytosis, heart rate and blood pressure is stable. She was also found to be hypokalemic and potassium was replaced. She was also given a nebulizer treatment, IV Zosyn, and IV Levaquin. Past Medical/Surgical History Medical Problems: (1) Asthma Status: Chronic (2) Atrial fibrillation Status: Chronic (3) C. difficile colitis Status: Resolved (4) Chronic anticoagulation Status: Chronic (5) CKD (chronic kidney disease), stage IV Status: Chronic (6) COPD (chronic obstructive pulmonary disease) Status: Chronic (7) CVA (cerebral vascular accident) Status: Chronic (8) Diabetes mellitus, type II Status: Chronic (9) Diabetic neuropathy Status: Chronic (10) Diabetic peripheral neuropathy associated with type 2 diabetes mellitus Status: Chronic (11) Diastolic CHF Permanent Comment: Echo 07/2017-moderate LVH, EF 65-70%, grade 1 diastolic dysfunction, trace mitral regurgitation, mild tricuspid regurgitation Status: Chronic (12) Gastroparesis Status: Chronic (13) GERD (gastroesophageal reflux disease) Status: Chronic (14) History of coronary artery disease Status: Chronic (15) History of GI bleed Status: Chronic (16) Hyperlipidemia Status: Chronic (17) Hypertension Status: Chronic (18) Migraine Status: Chronic (19) Pulmonary embolism Status: Chronic (20) Sleep apnea Status: Chronic Surgical Problems: (1) H/O heart artery stent Permanent Comment: PTCA LAD [facility] (AVE Stent). Repeat catheterization August 2014 demonstrated stable moderate LAD stenosis. Status: Resolved (2) History of appendectomy Status: Resolved (3) History of total left hip arthroplasty Status: Resolved (4) Hx of removal of ovary Permanent Comment: R side Status: Resolved Family History Noncontributory secondary to patient's advanced age Social History Smoking Status: Former Smoker Alcohol Use: none Housing status: lives alone Immunizations History of Influenza Vaccine: Yes Influenza Vaccine Date: May 18, 2017 History of Tetanus Vaccine?: Yes Tetanus Immunization Date: Feb 20, 2012 History of Pneumococcal: Yes Pneumococcal Date: Aug 03, 2014 Allergies Coded Allergies: Codeine (Verified Allergy, Unknown, UNKNOWN, 12/10/17) INFO FROM PT Aspirin (Verified Adverse Reaction, Intermediate, (ULCER), 12/10/17) Venlafaxine (Verified Adverse Reaction, Intermediate, DROWINESS/ CONFUSION , 12/10/17) Cephalexin (Verified Adverse Reaction, Mild, DROWSINESS, UNABLE TO DRIVE, UPSET STOMACH, 12/10/17) Oxycodone (Verified Adverse Reaction, Mild, n/v, 12/10/17) gmg Home Medications Scheduled Aspirin (Aspirin Low Strength), 1 TAB OR DAILY Budesonide (Inhalation) (Pulmicort Respules 0.5MG/2ML), 1 VIAL NEB BID Calcitriol (Calcitriol), 0.5 MCG PO DAILY Carvedilol (Coreg), 1 TAB PO BID Ferrous Sulfate (Ferrous Sulfate), 325 MG PO DAILY Furosemide (Lasix), 80 MG PO BID Home O2 Therapy (Oxygen), 3 LITERS NA HS Insulin Aspart (Novolog), ACHS Insulin Glargine (Lantus Solostar), 25 UNITS SQ DAILY Isosorbide Mononitrate (Isosorbide Mononitrate ER), 30 MG PO DAILY Lovastatin (Mevacor), 80 MG PO HS Metolazone (Zaroxolyn), 2.5 MG PO WK Omeprazole (Omeprazole), 20 MG PO DAILY Potassium Chloride (Klor-Con M20), 20 MEQ PO BID Solifenacin (Vesicare), 5 MG PO DAILY Warfarin Sod (Coumadin), 4 MG PO ThSu Warfarin Sod (Coumadin), 2 MG PO MoTuWeFrSa Scheduled PRN Glucose-Vitamin C (Glucose), 1 TAB PO UD PRN for LOW SUGAR Ipratropium Gulliver (Ipratropium Gulliver), 1 VIAL NEB QID PRN for SOB/Wheezing Levalbuterol Hcl (Levalbuterol Hcl), 3 ML INH Q4 PRN for SOB/Wheezing Nitroglycerin (Nitrostat), 0.4 MG UT PRN PRN for Chest Pain Review of Systems ROS per HPI, all other systems reviewed and negative Physical Exam Vital Signs Date Time Temp Pulse Resp B/P (MAP) Pulse Ox O2 Delivery O2 Flow Rate FiO2 12/10/17 13:35 83 22 195/89 95 12/10/17 12:46 86 18 184/68 97 Nasal Cannula 3.0 12/10/17 11:52 84 95 35 12/10/17 11:51 84 30 95 BiPAP/CPAP 35 12/10/17 11:41 BiPAP 12/10/17 11:09 38.0 94 28 163/80 87 Room Air 12/10/17 11:09 87 Room Air 12/10/17 11:07 87 Room Air 12/10/17 11:07 90 General Appearance: WD/WN, no apparent distress Head: normocephalic, atraumatic Eyes: normal inspection, EOMI, sclerae normal ENT: hearing grossly normal, + pertinent finding (Mucous membranes dry) Neck: supple, no JVD, trachea midline Respiratory/Chest: no respiratory distress, + decreased breath sounds, + crackles (Left base), + rhonchi (Faint noted in anterior lung cole) Cardiovascular: normal peripheral pulses, + irregularly irregular (Rate controlled), + pertinent finding (Trace edema BL LE) Abdomen/GI: normal bowel sounds, non tender, soft, no organomegaly Genitourinary - Female: + pertinent finding (Gaines in place draining clear yellow urine) Extremities/Musculoskelatal: normal inspection, no calf tenderness, normal capillary refill Neurologic/Psych: no motor/sensory deficits, alert, oriented x 3, + pertinent finding (Poor insight, forgetful) Skin: + pertinent finding (Dry, flaky skin to BLLE; small wound/bruising noted to the head of the first metatarsal, no surrounding erythema or drainage noted) Diagnostics Laboratory Results Results Past 24 Hours Test 12/10/17 11:33 12/10/17 11:37 12/10/17 11:38 12/10/17 12:00 Range/Units White Blood Count 6.77 4.8-10.8 K/uL Red Blood Count 3.95 4.2-5.4 M/uL Hemoglobin 12.1 12.0-16.0 g/dL Hematocrit 36.1 37-47 % Mean Corpuscular Volume 91.4 80-100 fL Mean Corpuscular Hemoglobin 30.6 25-34 pg Mean Corpuscular Hemoglobin Concent 33.5 32-36 g/dl Platelet Count 116 130-400 K/uL Mean Platelet Volume 10.4 7.4-10.4 fL Neutrophils (%) (Auto) 83.6 % Lymphocytes (%) (Auto) 9.7 % Monocytes (%) (Auto) 6.4 % Eosinophils (%) (Auto) 0.0 % Basophils (%) (Auto) 0.0 % Neutrophils # (Auto) 5.66 1.4-6.5 K/uL Lymphocytes # (Auto) 0.66 1.2-3.4 K/uL Monocytes # (Auto) 0.43 0.11-0.59 K/uL Eosinophils # (Auto) 0.00 0-0.5 K/uL Basophils # (Auto) 0.00 0-0.2 K/uL RDW Standard Deviation 47.0 36.4-46.3 fL RDW Coefficient of Variation 14.2 11.5-14.5 % Immature Granulocyte % (Auto) 0.3 % Immature Granulocyte # (Auto) 0.02 0.00-0.02 K/uL Prothrombin Time 24.2 9.0-12.0 SECONDS Prothromb Time International Ratio 2.3 0.9-1.1 Sodium Level 131 136-145 mmol/L Potassium Level 2.9 3.5-5.1 mmol/L Chloride Level 85 98-107 mmol/L Carbon Dioxide Level 38 21-32 mmol/L Anion Gap 8.0 3-11 mmol/L Blood Urea Nitrogen 46 7-18 mg/dl Creatinine 2.13 0.60-1.20 mg/dl Est Creatinine Clear Calc Drug Dose 26.0 ml/min Estimated GFR () 24.9 Estimated GFR (Non- 21.5 BUN/Creatinine Ratio 21.6 10-20 Random Glucose 208 70-99 mg/dl Calcium Level 9.4 8.5-10.1 mg/dl Total Bilirubin 1.3 0.2-1 mg/dl Aspartate Amino Transf (AST/SGOT) 22 15-37 U/L Alanine Aminotransferase (ALT/SGPT) 16 12-78 U/L Alkaline Phosphatase 99 45-117 U/L Total Creatine Kinase 43 26-192 U/L Creatine Kinase MB < 0.5 0.5-3.6 ng/ml Creatine Kinase MB Ratio 0-3.0 Troponin I < 0.015 0-0.045 ng/ml Total Protein 6.8 6.4-8.2 gm/dl Albumin 3.0 3.4-5.0 gm/dl Globulin 3.8 2.5-4.0 gm/dl Albumin/Globulin Ratio 0.8 0.9-2 Chemistry Specimen Hemolysis Bedside Lactic Acid Venous 1.60 0.90-1.70 mmol/L Influenza Type A Antigen Neg for Influ A NEG Influenza Type B Antigen Neg for Influ B NEG Urine Color YELLOW Urine Appearance CLOUDY CLEAR Urine pH 5.0 4.5-7.5 Urine Specific Orwell 1.012 1.000-1.030 Urine Protein TRACE NEG Urine Glucose (UA) NEG NEG Urine Ketones NEG NEG Urine Occult Blood 1+ NEG Urine Nitrite NEG NEG Urine Bilirubin NEG NEG Urine Urobilinogen NEG NEG Urine Leukocyte Esterase SMALL NEG Urine WBC (Auto) 10-30 0-5 /hpf Urine RBC (Auto) 0-4 0-4 /hpf Urine Hyaline Casts (Auto) 1-5 0-5 /lpf Urine Epithelial Cells (Auto) 0-5 0-5 /lpf Urine Bacteria (Auto) 3+ NEG Test 12/10/17 12:43 12/10/17 13:06 Range/Units Arterial Blood pH 7.50 7.35-7.45 Arterial Blood Partial Pressure CO2 48 35-46 mmHg Arterial Blood Partial Pressure O2 133 80-95 mm/Hg Arterial Blood HCO3 36 19-24 mmol/L Arterial Blood Oxygen Saturation 98.9 90-95 % Arterial Blood Base Excess 11.6 -9-1.8 mEq/L Arterial Blood Gas Delivery FIO2 35% Jonathan Test POS POS Microbiology Results 12/10/17 Blood Culture, Received Pending 12/10/17 Blood Culture, Received Pending 12/10/17 Urine Culture, Received Pending Diagnostic Radiology CXR IMPRESSION: 1. Interval development of left basilar consolidation, which raises concern for pneumonia. Trace left pleural effusion may also be present. Asymmetric pulmonary edema is considered less likely, which would be unexpected to exhibit this degree of density. 2. Cardiomegaly with mild volume overload. Impression Assessment and Plan Acute on chronic hypoxic respiratory failure Community-acquired pneumonia COPD exacerbation -Admit to telemetry -Patient presenting with increasing shortness of breath and cough, also had a mechanical fall last evening -On presentation saturating 87% on room air and was placed on BiPAP, during my exam patient was transitioned to 2 L nasal cannula and is saturating well ( chronically wears 4 L of oxygen at night) -Chest x-ray in the ED shows a left basilar consolidation consistent with pneumonia -On presentation, low-grade fever at 38.0, no leukocytosis, heart rate and blood pressure stable, lactic acid is normal -Do not suspect sepsis -S/P Zosyn and Levaquin in the ED; will continue with Levaquin only for now -Blood and sputum cultures -Will start prednisone 40 mg p.o. 5 days, [id number] nebulizer treatments , continue home inhaled corticosteroid Metabolic alkalosis -ABG shows a metabolic alkalosis with appropriate respiratory compensation -Noted that diuretics were recently increased as an outpatient -Metabolic alkalosis possibly from overdiuresis -Will hold further diuresis for now, follow ABG Hypokalemia -Likely diuretic induced -Replace, follow potassium levels -Check magnesium Chronic diastolic CHF -As an outpatient, patient's Lasix was recently increased to 80 mg twice daily ( up from 80 mg in the morning and 40 mg in the evening), was restarted on metolazone weekly, amlodipine was discontinued, and Coreg was increased to 25 mg twice daily (up from 12.5 mg twice daily) -Patient's volume status has been difficult to control in the past due to renal dysfunction and dizziness -Holding diuresis as above for now History of CAD -Appears stable, no reports of chest pain -Continue aspirin, statin, nitrate, and beta-joe Atrial fibrillation -Rate controlled on carvedilol, will continue -Anticoagulated on Coumadin, INR is 2.3 Diabetes -Hgb A1c 7.7 08/2017 -Continue Lantus and NovoLog per protocol DVT prophylaxis -Anticoagulated on Coumadin CODE STATUS -Patient is a full code as per discussion with her. Disposition -In my clinical judgment this beneficiary meets acute admission criteria, established by [facility], that includes being hospitalized through two midnights. -PT/OT consults, case management; patient currently lives home alone and may need higher level of care at discharge Attending addendum: The patient was seen and examined in telemetry unit. She was admitted with increasing shortness of breath and also generalized weakness. Feeling a little better following admission and denies any chest pain palpitation, No abdominal pain nausea and/or vomiting. On examination Moderate distress at rest Chest-decreased breath sounds all over with minimal crackles at the bases and minimal anterior wheezing Heart-S1, S2, irregular, no murmur appreciated Abdomen-distended, soft, bowel sounds present Extremities-1+ edema, chronic ischemic changes, no significant ulceration [employer]ER-alert awake oriented 3 Generally weak but no focal neuro deficit appreciated Admission labs, EKG, imaging studies were reviewed Agree with assessment and plan as outlined above. Dr. Diya Pacheco Resuscitation Status VTE Prophylaxis Will order VTE Prophylaxis: Yes
--- NOTE | 2017-12-10 15:00 | Pharmacy Progress Note ---
Glycemic Control Intl Consult Date of Service Dec 10, 2017. Scope Glycemic Pharmacist consulted by CATHERINE Tuttle on 12/10/17 for glycemic control and to write orders per [facility] inpatient glycemic control protocol Objective Weight (Kilograms): 96.700 Accuchecks BSG (last 24hrs): Test 12/10/17 11:33 Random Glucose 208 mg/dl (70-99) Laboratory Data (last 24hrs) Test 12/10/17 11:33 Anion Gap 8.0 mmol/L BUN/Creatinine Ratio 21.6 Blood Urea Nitrogen 46 mg/dl Creatinine 2.13 mg/dl Potassium Level 2.9 mmol/L Sodium Level 131 mmol/L White Blood Count 6.77 K/uL Red Blood Count 3.95 M/uL Hemoglobin 12.1 g/dL Hematocrit 36.1 % Mean Corpuscular Volume 91.4 fL Mean Corpuscular Hemoglobin 30.6 pg Mean Corpuscular Hemoglobin Concent 33.5 g/dl Platelet Count 116 K/uL Mean Platelet Volume 10.4 fL Neutrophils (%) (Auto) 83.6 % Lymphocytes (%) (Auto) 9.7 % Monocytes (%) (Auto) 6.4 % Eosinophils (%) (Auto) 0.0 % Basophils (%) (Auto) 0.0 % Neutrophils # (Auto) 5.66 K/uL Lymphocytes # (Auto) 0.66 K/uL Monocytes # (Auto) 0.43 K/uL Eosinophils # (Auto) 0.00 K/uL Basophils # (Auto) 0.00 K/uL Recent Pertinent Medications Outpatient Anti-diabetic Regimen: * Novolog per sliding scale (up to 60 units/day as per [facility] records) * Lantus 25 units qday * A1c = 7.4 % 09/24/17 Risk Factors for Insulin Resistance: * Steroids: to start on prednisone 40 mg daily - 1st dose now * Infection: on Levaquin for pneumonia * Diet: low Na/ AHA/ type 2 diabetes Assessment & Plan ASSESSMENT: * 77 y/o female well known to the pharmacy glycemic service from previous admissions, admitted for acute respiratory failure * Her Lantus dose is reduced compared to previous admissions - only taking in the AM compared to 25 units qAM, 11 units qPM previously * Data from past admissions: * She has received once daily prednisone before and it looks like we have tried without avail to control BSGs using the standard basal/bolus regimen * TDD of insulin ranging anywhere from 30-70 units when on this * I would like to trial using a once daily NPH dose with the once daily prednisone, since it matches the kinetics. We typically use 0.4 units/kg for a 40 mg dose of prednisone. Will plan to give this on top of her home Lantus dose since that is covering her basal needs. Will also add a CF/CR using wt/ stress level of 2 insulin calc estimates. This may need to be loosened once BSGs improve but will be a little more aggressive since baseline admitting BSG is elevated. PLAN FOR INPATIENT GLYCEMIC CONTROL: * Basal insulin: * Lantus 25 units qAM (took dose at home this AM) * NPH 40 units qAM - 1st dose now to coincide w/ prednisone dose * Correctional Insulin with NOVOLOG per scale ACHS or Q6hrs while NPO * Goal Range: Low 110 mg/dL - High 150 mg/dL * Correction Factor: 25 mg/dL/unit * Nutritional / Prandial insulin per carb ratio of 1 unit per 8 grams CHO consumed DISCHARGE RECOMMENDATIONS: * Most recent A1c indicates good outpatient control * Continue outpatient regimen with close f/u with outpatient provider Thank you.
[2017-12-10] MEDS: ALBUT/IPRATROP 3MG/0.5MG NEB 3 ML VIAL INH SCH ×2 (15:24→18:59)
[2017-12-10] MEDS: INSULIN HUMAN NPH SC SCH (15:39)
[2017-12-10] MEDS: INSULIN ASPART 100 UNITS/ML 3 ML PEN SC SCH ×2 (16:58→20:50)
[2017-12-10] MEDS ORDERED: INSULIN HUMAN REGULAR IV BOLUS 7 UNIT in SYRINGE 0 ML IV SCH (17:00)
[2017-12-10 18:38] LABS: INFLUENZA B ANTIGEN Neg for Influ B (NEG)
[2017-12-10] MEDS ORDERED: SODIUM CHLORIDE 0.9% 500ML 500 ML IV SCH (19:30)
[2017-12-10] MEDS ORDERED: NSS + 20MEQ KCL 1000ML 1,000 ML IV SCH (19:45)
[2017-12-10] MEDS: LOVASTATIN 20 MG TAB PO SCH (20:44)
[2017-12-10] MEDS: CARVEDILOL 25 MG TAB PO SCH (20:44)
[2017-12-10] MEDS ORDERED: BUDESONIDE 0.5 MG/2 ML VIAL (PULMICORT) INH SCH (21:00)
[2017-12-10] MEDS ORDERED: INSULIN GLARGINE SOLOSTAR 100 UNITS/ML 3 ML PEN SC SCH (21:00)
[2017-12-10 21:23] LABS: POTASSIUM RANDOM URINE 42.3 mEq/L
[2017-12-11] VITALS (12 sets, daily range): BP systolic 159–179; BP diastolic 73–92; PULSE 67–98; TEMP 36.5–36.7; O2SAT 92–98
[2017-12-11] MEDS ORDERED: INSULIN ASPART 100 UNITS/ML 3 ML PEN SC ONE (02:00)
[2017-12-11] MEDS: BUDESONIDE 0.5 MG/2 ML VIAL (PULMICORT) INH SCH ×2 (07:24→19:21)
[2017-12-11] MEDS: ALBUT/IPRATROP 3MG/0.5MG NEB 3 ML VIAL INH SCH ×5 (07:24→19:21)
[2017-12-11 07:31] LABS: HEMATOCRIT 30.3 % (37-47); HEMOGLOBIN 10.1 g/dL (12.0-16.0); MEAN CELL VOLUME 90.2 fL (80-100); MEAN CORPUSCULAR HEMOGLOBIN 30.1 pg (25-34); MEAN CORPUSCULAR HGB CONC 33.3 g/dl (32-36); RED CELL DISTRIBUTION WIDTH SD 46.3 fL (36.4-46.3); WHITE BLOOD COUNT 4.61 K/uL (4.8-10.8)
[2017-12-11 07:40] LABS: INR 1.9 (0.9-1.1)
[2017-12-11 08:05] LABS: CREATININE 1.97 mg/dl (0.60-1.20); PHOSPHORUS 3.9 mg/dl (2.5-4.9); POTASSIUM 2.9 mmol/L (3.5-5.1)
[2017-12-11 08:19] LABS: MEAN PLATELET VOLUME 9.7 fL (7.4-10.4); PLATELET COUNT 98 K/uL (130-400)
[2017-12-11] MEDS: CARVEDILOL 25 MG TAB PO SCH ×2 (08:26→20:45)
[2017-12-11] MEDS: PANTOprazole SOD 40 MG TAB PO SCH (08:27)
[2017-12-11] MEDS: INSULIN ASPART 100 UNITS/ML 3 ML PEN SC SCH ×4 (08:30→20:52)
[2017-12-11] MEDS: INSULIN GLARGINE SOLOSTAR 100 UNITS/ML 3 ML PEN SC SCH (08:31)
[2017-12-11] MEDS: INSULIN HUMAN NPH SC SCH (08:32)
--- NOTE | 2017-12-11 09:41 | NEPHROLOGY CONSULTATION ---
DATE OF CONSULTATION: 12/11/2017 ATTENDING OF RECORD: Dr. Menjivar. REASON FOR CONSULTATION: CKD, stage IV. HISTORY OF PRESENT ILLNESS: This is a 77-year-old female last seen by me in August of this year with CKD stage IV with no proteinuria with right kidney 9.4 cm, left kidney of 10.1 cm with normal size and echogenicity from advanced age, diabetes and hypertension and tobacco abuse. Does not use NSAIDs. No history of myeloma. She has been a diabetic since 1997 with no retinopathy. Does have neuropathy and gastroparesis, though. Hemoglobin A1c otherwise have always been well controlled. Did have a history of PE in 1999 as well as atrial fibrillation on Coumadin as well as a history of an IL with one stent in 1999. History of smoking for many years and quit in 2003. Does have underlying COPD, wears oxygen at night and does get shortness of breath rather easily. The patient with hypertension for about 15 years. Does have a home blood pressure cuff. The patient's creatinine tend to be in the low 2 range. The patient presented to this admission with worsening shortness of breath, fatigue. Cultures are pending. Chest x-ray shows left basilar consolidation with possible concern for pneumonia. The patient was started on IV Levaquin. Diuretics were held. CURRENT MEDICATIONS: Prednisone 40 mg orally a day and started on normal saline with 20 of potassium at 75 mL an hour. PAST MEDICAL HISTORY: CKD stage IV, baseline creatinine in the low 2s, COPD requiring oxygen at night, history of stroke, history of IL with one stent placed, history of AFib, hypertension, diabetes, hyperlipidemia, sleep apnea. PAST SURGICAL HISTORY: Cardiac stent, appendectomy, right oophorectomy, total left hip arthroplasty, appendectomy. FAMILY HISTORY: No renal disease in family. SOCIAL HISTORY: Former smoker. No alcohol, no drugs. Lives alone. CURRENT MEDICATIONS: Coumadin 4 mg twice a week, Levaquin IV q. 48, Coumadin 2 mg other days of the week, aspirin 81 mg daily, calcitriol 0.5 mcg daily, iron 325 daily, Imdur 30 mg daily, Protonix 40 mg daily, Lantus 25 units subQ daily, Coreg 25 mg p.o. b.i.d., normal saline with 20 of K at 75 mL an hour, Mevacor 80 mg at night, sliding scale insulin, prednisone 40 mg a day. REVIEW OF SYSTEMS: Positive exhaustion. Positive dry cough. Positive shortness of breath. No fevers or chills. No headaches, no blurry vision. No chest pain. No nausea, vomiting, no diarrhea or constipation. No dysuria or hematuria. No rash or itching. All other review of systems otherwise negative. PHYSICAL EXAMINATION: VITAL SIGNS: Temperature 36.7, pulse 84, respiratory rate 18, blood pressure 166/84, satting 97% on 4 liters. GENERAL: Awake, alert, oriented x3. EYES: No scleral icterus. ENT: Moist mucous membranes. NECK: Supple. PULMONARY: Positive end expiratory wheeze on the left base with some basilar rales. CARDIAC: Irregularly irregular. ABDOMEN: Bowel sounds positive, soft, nontender. EXTREMITIES: No significant clubbing, cyanosis or edema. NEUROLOGICAL: Does have some neuropathy. DERMATOLOGIC: No rash or ulcers noted. LABORATORIES: Pending for this morning, potassium was 3 at last checked, sodium level 131, chloride 85, bicarbonate 38, BUN 46, creatinine 2.13, glucose 208. Calcium is 9.4. T-bili is 1.3, albumin is 3. White count is 4, H and H 10 and 30, platelet count last checked 116. INR is 1.9. UA with pH of 5, specific gravity 1.012, 1+ blood, small leukocyte esterase, 10-30 WBCs, 0-4 RBCs. Flu negative. ABG shows a pH of 7.49, pCO2 of 45, pO2 of 118 and a bicarbonate of 33. IMPRESSION AND PLAN: 1. Chronic kidney disease stage IV, baseline creatinine in the low 2s and appears to be at baseline kidney function. 2. Hypokalemia. The patient's potassium level is 2.9 on admission, went up to 3 and currently getting potassium in the IV fluids at a low rate. Would continue to replete potassium p.r.n. and did get 40 mEq of p.o. potassium x2. 3. Renal osteodystrophy. Continue patient's calcitriol with no signs of hypercalcemia. Will check a vitamin D and PTH with upcoming outpatient regularly scheduled appointment. 4. Metabolic alkalosis. Chemistries show a bicarbonate of 38, blood gases have a pH in the 7.5 range with a pCO2 in the 40s and the bicarbonate is in 30s. Denies any significant nausea or vomiting. Was getting high dose IV diuretics and perhaps was over diuresis causing a mild contraction alkalosis. Diuretics have been held and the patient is getting IV fluids. The patient does though have a cardiac history with 1 stent in the past, atrial fibrillation and also has underlying chronic obstructive pulmonary disease and could get fluid overloaded quite easily, so have to be careful with the IV fluids. My opinion since the patient is eating and drinking well would stop the IV fluids and continue to hold the diuretics and give the antibiotics for the chronic obstructive pulmonary disease/pneumonia. Monitor for signs of fluid overload. If necessary, would restart the diuretics once the patient started to feel better, but do not want to fluid overload this patient with history of diastolic heart failure. I appreciate the consultation. RAYNA
[2017-12-11] MEDS: CALCITRIOL 0.25 MCG CAP PO SCH (09:58)
[2017-12-11] MEDS: FERROUS SULFATE 325 MG TAB PO SCH (09:58)
[2017-12-11] MEDS: ASPIRIN 81 MG ECTAB PO SCH (09:59)
[2017-12-11] MEDS: ISOSORBIDE MONONITRATE 30 MG TABCR PO SCH (09:59)
--- NOTE | 2017-12-11 15:37 | DIAGNOSTIC IMAGING REPORT ---
BILATERAL LOWER EXTREMITY VENOUS DOPPLER HISTORY: Acute bilateral calf pain bilat calf pain COMPARISON STUDY: Duplex venous Doppler 03/28/2009. FINDINGS: There is normal compressibility, flow, and augmentation within the bilateral lower extremity deep venous systems. There is a complex hypoechoic collection within the right popliteal fossa region measuring 5.8 x 1.8 x 2.0 cm suggesting complex Fuller's cyst. IMPRESSION: No sonographic evidence of deep venous thrombosis within the right or left lower extremity. Electronically signed by: Modesto Kebede M.D. 12/11/2017 3:36 PM Dictated Date/Time: 12/11/2017 3:35 PM
[2017-12-11] MEDS ORDERED: WARFARIN SOD 2 MG TAB PO SCH (16:00)
[2017-12-11] MEDS ORDERED: POTASSIUM CHLORIDE 20 MEQ TABCR PO ONE (16:30)
[2017-12-11] MEDS: POTASSIUM CHLORIDE 20 MEQ TABCR PO SCH (20:45)
--- NOTE | 2017-12-11 20:50 | Progress Note ---
Medicine Progress Note Date & Time of Visit: Dec 11, 2017 at 11:10 . Subjective CC: Follow-up visit for pneumonia and other problems. HPI: No fever since admission. Persistent cough and chest congestion. Cough is nonproductive. ROS: General- no fever, no chills Resp- as noted above in HPI Cardiac- no chest pain, no edema GI- no nausea, no vomiting, no diarrhea, no constipation - Gaines catheter . Objective Last 8 Hrs Date Time Temp Pulse Resp B/P (MAP) Pulse Ox O2 Delivery O2 Flow Rate FiO2 12/11/17 19:21 88 18 98 Nasal Cannula 3.0 12/11/17 19:03 36.7 98 20 169/90 (116) 96 Nasal Cannula 2.0 12/11/17 17:03 36.7 76 20 179/92 (121) 98 Room Air 12/11/17 16:00 98 Nasal Cannula 4.0 12/11/17 12:55 92 Physical Exam: General- sitting in chair, no distress Lungs- scattered rhonchi, diffuse mild wheezing; no respiratory distress Cardiovascular- irregular; no gallop appreciated; 1+ pretibial edema Abdomen- + bowel sounds, soft, nontender Extremities- no cyanosis; no calf tenderness Neuro- alert, oriented Skin- warm & dry . Laboratory Results: Last 24 Hours Test 12/11/17 01:09 12/11/17 02:05 12/11/17 06:48 12/11/17 07:18 Arterial Blood pH 7.53 7.49 Arterial Blood Partial Pressure CO2 44 mmHg 45 mmHg Arterial Blood Partial Pressure O2 101 mm/Hg 118 mm/Hg Arterial Blood HCO3 36 mmol/L 33 mmol/L Arterial Blood Oxygen Saturation 97.5 % 98.3 % Arterial Blood Base Excess 12.2 mEq/L 9.1 mEq/L Arterial Blood Gas Delivery 4 L 4 L Jonathan Test POS POS Bedside Glucose 108 mg/dl 125 mg/dl White Blood Count 4.61 K/uL Red Blood Count 3.36 M/uL Hemoglobin 10.1 g/dL Hematocrit 30.3 % Mean Corpuscular Volume 90.2 fL Mean Corpuscular Hemoglobin 30.1 pg Mean Corpuscular Hemoglobin Concent 33.3 g/dl RDW Standard Deviation 46.3 fL RDW Coefficient of Variation 14.0 % Platelet Count 98 K/uL Mean Platelet Volume 9.7 fL Platelet Estimate DECREASED Prothrombin Time 20.0 SECONDS Prothromb Time International Ratio 1.9 Sodium Level 135 mmol/L Potassium Level 2.9 mmol/L Chloride Level 93 mmol/L Carbon Dioxide Level 35 mmol/L Anion Gap 7.0 mmol/L Blood Urea Nitrogen 47 mg/dl Creatinine 1.97 mg/dl Est Creatinine Clear Calc Drug Dose 25.6 ml/min Estimated GFR () 27.3 Estimated GFR (Non- 23.6 BUN/Creatinine Ratio 23.8 Random Glucose 121 mg/dl Calcium Level 9.0 mg/dl Phosphorus Level 3.9 mg/dl Magnesium Level 2.4 mg/dl Test 12/11/17 11:24 12/11/17 17:01 Bedside Glucose 231 mg/dl 201 mg/dl Assessment & Plan PNEUMONIA Fever, cough, shortness of breath at time of admission. Chest x-ray demonstrated infiltrate left base. Community-acquired pneumonia with underlying COPD. Blood cultures obtained. Sputum culture pending. Continue levofloxacin. EXACERBATION OF COPD Exacerbation secondary to pneumonia. Oxygen saturation as low as 87% in ED. Receiving prednisone 40 mg daily. Continue Duoneb nebulizer treatments CHRONIC HYPOXIC RESPIRATORY FAILURE Secondary to COPD. On home O2 at 4 L/min. CORONARY ARTERY DISEASE History of ischemic heart disease, status post PCI. No anginal symptoms. Continue aspirin, carvedilol, nitrates, statin. CHF Chronic diastolic left ventricular heart failure. Probable overdiuresis as discussed below. Titrate diuretics. ATRIAL FIBRILLATION Rate controlled on carvedilol. Continue anticoagulation with warfarin. HYPERTENSION Continue carvedilol and nitrates. CHRONIC KIDNEY DISEASE STAGE IV Serum creatinine at time of admission 2.13. Nephrology consulted. Diuretics being held. Creatinine today = 1.97. HYPOKALEMIA Serum potassium at time of admission was 2.9. Receiving replacement. Follow. METABOLIC ACIDOSIS Total CO2 38 at time of admission. ABG on oxygen supplementation demonstrated PO2 133, PCO2 48, bicarb 36, pH 7.50. Probable metabolic acidosis secondary to diuretic therapy. Titrate diuretics. Follow. DM TYPE 2 Random glucose at time of admission 208. Repeat blood sugar as high as 360. Blood sugars elevated secondary to acute illness and glucocorticoids. Pharmacy consulted for glycemic management. VTE PROPHYLAXIS Continue warfarin. Ambulate. DISPOSITION To be determined. Family Medicine follow-up with Dr. Waterman. . Current Inpatient Medications: Current Inpatient Medications Medications (Trade) Dose Ordered Sig/Rose Route Start Time Stop Time Status Last Admin Dose Admin Acetaminophen (Tylenol Tab) 650 mg Q4H PRN PO 12/10/17 13:00 01/09/18 12:59 Ondansetron HCl (Zofran Inj) 4 mg Q6H PRN IV 12/10/17 13:00 01/09/18 12:59 Levofloxacin 750 mg/Prmx 150 ml @ 100 mls/hr Q48H IV 12/12/17 12:00 12/19/17 11:59 Prednisone (PredniSONE TAB) 40 mg DAILY PO 12/10/17 14:15 12/14/17 09:01 12/11/17 08:27 40 MG Albuterol/ Ipratropium (Duoneb) 3 ml QIDR INH 12/10/17 16:00 01/09/18 15:59 12/11/17 19:21 3 ML Aspirin (Ecotrin Tab) 81 mg DAILY PO 12/11/17 09:00 01/10/18 08:59 12/11/17 09:59 81 MG Calcitriol (Rocaltrol Cap) 0.5 mcg DAILY PO 12/11/17 09:00 01/10/18 08:59 12/11/17 09:58 0.5 MCG Carvedilol (Coreg Tab) 25 mg BID PO 12/10/17 21:00 01/09/18 20:59 12/11/17 20:45 25 MG Ferrous Sulfate (Feosol Tab) 325 mg DAILY PO 12/11/17 09:00 01/10/18 08:59 12/11/17 09:58 325 MG Isosorbide Mononitrate (Imdur Ext Rel Tab) 30 mg DAILY PO 12/11/17 09:00 01/10/18 08:59 12/11/17 09:59 30 MG Warfarin Sodium (Coumadin Tab) 2 mg MoTuWeFrSa@1600 PO 12/11/17 16:00 01/10/18 15:59 12/11/17 16:11 2 MG Warfarin Sodium (Coumadin Tab) 4 mg SuTh@1600 PO 12/13/17 16:00 01/12/18 15:59 Lovastatin (Mevacor Tab) 80 mg HS PO 12/10/17 21:00 01/09/18 20:59 12/10/17 20:44 80 MG Pantoprazole Sodium (Protonix Tab) 40 mg DAILY PO 12/11/17 09:00 01/10/18 08:59 12/11/17 08:27 40 MG Miscellaneous Information (Order Awaiting Action) 1 ea QS N/A 12/10/17 16:00 01/09/18 15:59 Insulin Aspart (novoLOG ASPART) SLIDING SCALE If C... ACHS SC 12/10/17 16:00 01/09/18 15:59 12/11/17 17:46 9 UNITS Glucose (Glucose 40% Gel) 15-30 GRAMS 15 GRAMS... UD PRN PO 12/10/17 14:00 01/09/18 13:59 Glucose (Glucose Chew Tab) 4-8 Tablets 4 Tabl... UD PRN PO 12/10/17 14:00 01/09/18 13:59 Dextrose (Dextrose 50% 50ML Syringe) 25-50ML OF 50% DW IV FOR... UD PRN IV 12/10/17 14:00 01/09/18 13:59 Glucagon (Glucagon Inj) 1 mg UD PRN SQ 12/10/17 14:00 01/09/18 13:59 Miscellaneous Information (Consult Glycemic Management Pharmacy) 1 ea UD PRN N/A 12/10/17 14:04 01/09/18 14:03 Insulin Glargine (Lantus Solostar Pen) 25 units QAM SC 12/11/17 09:00 01/10/18 08:59 12/11/17 08:31 25 UNITS Insulin Human NPH (novoLIN-N NPH) 40 units QAM SC 12/10/17 14:45 01/09/18 14:44 12/11/17 08:32 40 UNITS Budesonide (Pulmicort Respules 0.5MG/ 2ML Neb Soln) 0.5 mg BIDR INH 12/11/17 08:00 01/10/18 07:59 12/11/17 19:21 0.5 MG Potassium Chloride (Klor-Con Tab) 20 meq BID PO 12/11/17 21:00 01/10/18 20:59 12/11/17 20:45 20 MEQ
[2017-12-11] MEDS: LOVASTATIN 20 MG TAB PO SCH (21:42)
[2017-12-11 22:29] LABS: CALCIUM 9.2 mg/dl (8.5-10.1); CREATININE 2.35 mg/dl (0.60-1.20); POTASSIUM 3.3 mmol/L (3.5-5.1)
[2017-12-11] MEDS ORDERED: POTASSIUM CHLORIDE INJ 40 MEQ in SODIUM CHLORIDE 0.9% 1000ML 1,000 ML IV SCH (23:15)
[2017-12-12] VITALS (21 sets, daily range): BP systolic 149–191; BP diastolic 77–131; PULSE 66–86; TEMP 36.3–36.8; O2SAT 94–99
[2017-12-12] MEDS: LABETALOL HCL IV 5 MG/ML 20ML IV PRN ×2 (01:08→20:00)
[2017-12-12] MEDS: BUDESONIDE 0.5 MG/2 ML VIAL (PULMICORT) INH SCH ×2 (07:15→19:39)
[2017-12-12] MEDS: ALBUT/IPRATROP 3MG/0.5MG NEB 3 ML VIAL INH SCH ×4 (07:15→19:39)
[2017-12-12 07:37] LABS: HEMATOCRIT 29.1 % (37-47); HEMOGLOBIN 9.6 g/dL (12.0-16.0); MEAN CELL VOLUME 90.1 fL (80-100); MEAN CORPUSCULAR HEMOGLOBIN 29.7 pg (25-34); RED CELL DISTRIBUTION WIDTH CV 13.9 % (11.5-14.5); RED CELL DISTRIBUTION WIDTH SD 45.8 fL (36.4-46.3); WHITE BLOOD COUNT 4.29 K/uL (4.8-10.8)
[2017-12-12 07:42] LABS: PLATELET COUNT 96 K/uL (130-400)
[2017-12-12 07:47] LABS: INR 1.6 (0.9-1.1)
[2017-12-12 07:57] LABS: HEMOGLOBIN A1C 7.6 % (4.5-5.6)
[2017-12-12 08:02] LABS: CALCIUM 8.9 mg/dl (8.5-10.1); CREATININE 2.05 mg/dl (0.60-1.20); POTASSIUM 3.4 mmol/L (3.5-5.1)
[2017-12-12 08:15] LABS: MEAN PLATELET VOLUME 9.8 fL (7.4-10.4)
[2017-12-12] MEDS: CARVEDILOL 25 MG TAB PO SCH ×2 (08:18→21:01)
[2017-12-12] MEDS: PANTOprazole SOD 40 MG TAB PO SCH (08:19)
[2017-12-12] MEDS: ASPIRIN 81 MG ECTAB PO SCH (08:19)
[2017-12-12] MEDS: CALCITRIOL 0.25 MCG CAP PO SCH (08:19)
[2017-12-12] MEDS: POTASSIUM CHLORIDE 20 MEQ TABCR PO SCH ×2 (08:20→21:01)
[2017-12-12] MEDS: FERROUS SULFATE 325 MG TAB PO SCH (08:20)
[2017-12-12] MEDS: ISOSORBIDE MONONITRATE 30 MG TABCR PO SCH (08:21)
[2017-12-12] MEDS: INSULIN GLARGINE SOLOSTAR 100 UNITS/ML 3 ML PEN SC SCH (08:27)
[2017-12-12] MEDS: INSULIN ASPART 100 UNITS/ML 3 ML PEN SC SCH ×4 (08:27→20:54)
[2017-12-12] MEDS: INSULIN HUMAN NPH SC SCH (08:28)
[2017-12-12] MEDS: HEPARIN SOD 5000 UNIT/0.5 ML CARP SQ SCH ×2 (09:19→21:04)
[2017-12-12] MEDS ORDERED: GUAIFENESIN 600 MG TABCR PO ONE (09:43)
[2017-12-12] MEDS ORDERED: LEVOFLOXACIN / D5W 750 MG in PREMIXED IN D5W 150 ML IV SCH (12:00)
--- NOTE | 2017-12-12 14:55 | Pharmacy Progress Note ---
Pharmacy Glycemic Short Note 2 Date of Service Dec 12, 2017. OUTPATIENT ANTIDIABETIC REGIMEN: * Novolog per sliding scale (up to 60 units/day as per [facility] records) * Lantus 25 units qday * A1c = 7.4 % 09/24/17 ASSESSMENT: 12/12/17 * Patient continues to experience steroid induced hyperglycemia despite addition of NPH to regimen. Patient remains on Prednisone 40 mg PO daily. * BSGs from the past 24 hours: 125, 231, 201, 219, 129 * Fasting BSG is at goal - no changes to basal insulin * Post-prandials BSGs are elevated - tighten CF/CR 12/10/17 77 y/o female well known to the pharmacy glycemic service from previous admissions, admitted for acute respiratory failure * Her Lantus dose is reduced compared to previous admissions - only taking in the AM compared to 25 units qAM, 11 units qPM previously * Data from past admissions: * She has received once daily prednisone before and it looks like we have tried without avail to control BSGs using the standard basal/bolus regimen * TDD of insulin ranging anywhere from 30-70 units when on this * I would like to trial using a once daily NPH dose with the once daily prednisone, since it matches the kinetics. We typically use 0.4 units/kg for a 40 mg dose of prednisone. Will plan to give this on top of her home Lantus dose since that is covering her basal needs. Will also add a CF/CR using wt/ stress level of 2 insulin calc estimates. This may need to be loosened once BSGs improve but will be a little more aggressive since baseline admitting BSG is elevated. PLAN FOR INPATIENT GLYCEMIC CONTROL: * Basal insulin: * Lantus 25 units qAM * NPH 40 units qAM - while on prednisone * Bolus Insulin - tighten * NOVOLOG per scale ACHS or Q6hrs while NPO * Goal Range: Low 110 mg/dL - High 150 mg/dL * Correction Factor: 12 mg/dL/unit * Nutritional / Prandial insulin per carb ratio of 1 unit per 4 grams CHO consumed DISCHARGE RECOMMENDATIONS: * Most recent A1c indicates good outpatient control * Continue outpatient regimen with close f/u with outpatient provider
[2017-12-12] MEDS: WARFARIN SOD 4 MG TAB PO SCH (16:02)
--- NOTE | 2017-12-12 16:59 | Progress Note ---
Medicine Progress Note Date & Time of Visit: Dec 12, 2017 at 09:40 . Subjective CC: Follow-up visit for pneumonia and other problems. HPI: Persistent nonproductive cough and chest congestion. SOB. No fever. ROS: General- no fever, no chills Resp- as noted above in HPI Cardiac- no chest pain, no edema GI- no nausea, no vomiting, no diarrhea, no constipation - Gaines catheter . Objective Last 8 Hrs Date Time Temp Pulse Resp B/P (MAP) Pulse Ox O2 Delivery O2 Flow Rate FiO2 12/12/17 16:17 170/93 (118) 12/12/17 16:00 94 Nasal Cannula 3.0 12/12/17 15:27 36.4 66 16 173/106 (128) 96 Nasal Cannula 2.0 12/12/17 14:59 75 18 96 Nasal Cannula 2.0 12/12/17 12:43 36.3 72 20 157/102 (120) 99 Nasal Cannula 2.0 12/12/17 12:00 96 Nasal Cannula 3.0 12/12/17 11:26 74 18 98 Nasal Cannula 3.0 12/12/17 09:50 74 18 98 Nasal Cannula 3.0 Physical Exam: General- lying in bed, no acute distress Lungs- scattered rhonchi, diffuse mild wheezing; no respiratory distress Cardiovascular- irregular; no gallop appreciated; + JVD; 1+ pretibial edema Abdomen- + bowel sounds, soft, nontender Back- ecchymosis upper back - Gaines cath Extremities- no cyanosis; no calf tenderness; chronic venous stasis changes lower extremities Neuro- alert, oriented Skin- warm & dry . Laboratory Results: Last 24 Hours Test 12/11/17 17:01 12/11/17 20:25 12/11/17 21:13 12/12/17 07:01 Bedside Glucose 201 mg/dl 217 mg/dl 129 mg/dl Sodium Level 128 mmol/L Potassium Level 3.3 mmol/L Chloride Level 87 mmol/L Carbon Dioxide Level 33 mmol/L Anion Gap 8.0 mmol/L Blood Urea Nitrogen 54 mg/dl Creatinine 2.35 mg/dl Est Creatinine Clear Calc Drug Dose 21.5 ml/min Estimated GFR () 22.1 Estimated GFR (Non- 19.1 BUN/Creatinine Ratio 23.0 Random Glucose 193 mg/dl Calcium Level 9.2 mg/dl Test 12/12/17 07:03 12/12/17 11:17 White Blood Count 4.29 K/uL Red Blood Count 3.23 M/uL Hemoglobin 9.6 g/dL Hematocrit 29.1 % Mean Corpuscular Volume 90.1 fL Mean Corpuscular Hemoglobin 29.7 pg Mean Corpuscular Hemoglobin Concent 33.0 g/dl RDW Standard Deviation 45.8 fL RDW Coefficient of Variation 13.9 % Platelet Count 96 K/uL Mean Platelet Volume 9.8 fL Prothrombin Time 16.3 SECONDS Prothromb Time International Ratio 1.6 Sodium Level 134 mmol/L Potassium Level 3.4 mmol/L Chloride Level 95 mmol/L Carbon Dioxide Level 32 mmol/L Anion Gap 7.0 mmol/L Blood Urea Nitrogen 56 mg/dl Creatinine 2.05 mg/dl Est Creatinine Clear Calc Drug Dose 25.0 ml/min Estimated GFR () 26.1 Estimated GFR (Non- 22.5 BUN/Creatinine Ratio 27.5 Random Glucose 124 mg/dl Estimated Average Glucose 171 mg/dl Hemoglobin A1c 7.6 % Calcium Level 8.9 mg/dl Magnesium Level 2.5 mg/dl Bedside Glucose 202 mg/dl Date/Time Source Procedure Growth Status 12/12/17 11:05 Nasal MRSA DNA Surveillance Screen - Final Specimen Negative for MRSA by DNA Probe Complete Assessment & Plan PNEUMONIA Fever, cough, shortness of breath at time of admission. Chest x-ray demonstrated infiltrate left base. Community-acquired pneumonia with underlying COPD. Blood cultures obtained. Sputum culture pending. [employer] swab for influenza A/B Ag negative; check PCR. Check MRSA nasal screen. Continue levofloxacin. EXACERBATION OF COPD Exacerbation secondary to pneumonia. Oxygen saturation as low as 87% in ED. Receiving prednisone 40 mg daily. Continue Duoneb nebulizer treatments CHRONIC HYPOXIC RESPIRATORY FAILURE Secondary to COPD. On home O2 at 4 L/min. Continue supplemental O2. CORONARY ARTERY DISEASE History of ischemic heart disease, status post PCI. No anginal symptoms. Continue aspirin, carvedilol, nitrates, statin. CHF Chronic diastolic left ventricular heart failure. Probable overdiuresis as discussed below. Titrate diuretics. ATRIAL FIBRILLATION Rate controlled on carvedilol. Continue anticoagulation with warfarin. HYPERTENSION Continue carvedilol and nitrates. CHRONIC KIDNEY DISEASE STAGE IV Serum creatinine at time of admission 2.13. Nephrology consulted. Diuretics being held. Creatinine today = 2.05. HYPOKALEMIA Serum potassium at time of admission was 2.9. Receiving replacement. K this morning = 2.05. Follow. METABOLIC ACIDOSIS Total CO2 38 at time of admission. ABG on oxygen supplementation demonstrated PO2 133, PCO2 48, bicarb 36, pH 7.50. Probable metabolic acidosis secondary to diuretic therapy. Total CO2 today = 32. Titrate diuretics. Follow. DM TYPE 2 Random glucose at time of admission 208. Repeat blood sugar as high as 360. Blood sugars elevated secondary to acute illness and glucocorticoids. Pharmacy consulted for glycemic management. FBS this morning = 129. VTE PROPHYLAXIS Receiving warfarin, but INR subtherapeutic. Add SQ heparin until INR therapeutic. Ambulate. DISPOSITION To be determined. Family Medicine follow-up with Dr. Waterman. . Current Inpatient Medications: Current Inpatient Medications Medications (Trade) Dose Ordered Sig/Rose Route Start Time Stop Time Status Last Admin Dose Admin Acetaminophen (Tylenol Tab) 650 mg Q4H PRN PO 12/10/17 13:00 01/09/18 12:59 Ondansetron HCl (Zofran Inj) 4 mg Q6H PRN IV 12/10/17 13:00 01/09/18 12:59 Levofloxacin 750 mg/Prmx 150 ml @ 100 mls/hr Q48H IV 12/12/17 12:00 12/19/17 11:59 12/12/17 12:29 100 MLS/HR Prednisone (PredniSONE TAB) 40 mg DAILY PO 12/10/17 14:15 12/14/17 09:01 12/12/17 08:21 40 MG Albuterol/ Ipratropium (Duoneb) 3 ml QIDR INH 12/10/17 16:00 01/09/18 15:59 12/12/17 14:57 3 ML Aspirin (Ecotrin Tab) 81 mg DAILY PO 12/11/17 09:00 01/10/18 08:59 12/12/17 08:19 81 MG Calcitriol (Rocaltrol Cap) 0.5 mcg DAILY PO 12/11/17 09:00 01/10/18 08:59 12/12/17 08:19 0.5 MCG Carvedilol (Coreg Tab) 25 mg BID PO 12/10/17 21:00 01/09/18 20:59 12/12/17 08:18 25 MG Ferrous Sulfate (Feosol Tab) 325 mg DAILY PO 12/11/17 09:00 01/10/18 08:59 12/12/17 08:20 325 MG Isosorbide Mononitrate (Imdur Ext Rel Tab) 30 mg DAILY PO 12/11/17 09:00 01/10/18 08:59 12/12/17 08:21 30 MG Lovastatin (Mevacor Tab) 80 mg HS PO 12/10/17 21:00 01/09/18 20:59 12/11/17 21:42 80 MG Pantoprazole Sodium (Protonix Tab) 40 mg DAILY PO 12/11/17 09:00 01/10/18 08:59 12/12/17 08:19 40 MG Miscellaneous Information (Order Awaiting Action) 1 ea QS N/A 12/10/17 16:00 01/09/18 15:59 Insulin Aspart (novoLOG ASPART) SLIDING SCALE If C... ACHS SC 12/10/17 16:00 01/09/18 15:59 12/12/17 12:31 15 UNITS Glucose (Glucose 40% Gel) 15-30 GRAMS 15 GRAMS... UD PRN PO 12/10/17 14:00 01/09/18 13:59 Glucose (Glucose Chew Tab) 4-8 Tablets 4 Tabl... UD PRN PO 12/10/17 14:00 01/09/18 13:59 Dextrose (Dextrose 50% 50ML Syringe) 25-50ML OF 50% DW IV FOR... UD PRN IV 12/10/17 14:00 01/09/18 13:59 Glucagon (Glucagon Inj) 1 mg UD PRN SQ 12/10/17 14:00 01/09/18 13:59 Miscellaneous Information (Consult Glycemic Management Pharmacy) 1 ea UD PRN N/A 12/10/17 14:04 01/09/18 14:03 Insulin Glargine (Lantus Solostar Pen) 25 units QAM SC 12/11/17 09:00 01/10/18 08:59 12/12/17 08:27 25 UNITS Insulin Human NPH (novoLIN-N NPH) 40 units QAM SC 12/10/17 14:45 01/09/18 14:44 12/12/17 08:28 40 UNITS Budesonide (Pulmicort Respules 0.5MG/ 2ML Neb Soln) 0.5 mg BIDR INH 12/11/17 08:00 01/10/18 07:59 12/12/17 07:15 0.5 MG Potassium Chloride (Klor-Con Tab) 20 meq BID PO 12/11/17 21:00 01/10/18 20:59 12/12/17 08:20 20 MEQ Labetalol HCl (Normodyne IV) 10 mg Q6H PRN IV 12/12/17 00:30 01/11/18 00:29 12/12/17 01:08 10 MG Warfarin Sodium (Coumadin Tab) 4 mg DAILY@16 PO 12/12/17 16:00 01/11/18 15:59 12/12/17 16:02 4 MG Heparin Sodium (Porcine) (Heparin Sq 5000 Unit/0.5ml) 5,000 unit Q12 SQ 12/12/17 09:00 01/11/18 08:59 12/12/17 09:19 5,000 UNIT Guaifenesin (Mucinex Contr Rel Tab) 600 mg Q12 PO 12/12/17 21:00 01/11/18 20:59
[2017-12-12 20:46] LABS: INFLUENZA A PCR Neg for Influ A (NEG); INFLUENZA B PCR Neg for Influ B (NEG)
[2017-12-12] MEDS: GUAIFENESIN 600 MG TABCR PO SCH (21:01)
[2017-12-12] MEDS: LOVASTATIN 20 MG TAB PO SCH (21:41)
[2017-12-12] MEDS ORDERED: LOVASTATIN 20 MG TAB PO SCH (22:00)
[2017-12-13] VITALS (14 sets, daily range): BP systolic 89–199; BP diastolic 57–109; PULSE 62–92; TEMP 35.8–37; O2SAT 92–100
[2017-12-13 06:29] LABS: INR 1.6 (0.9-1.1)
[2017-12-13 06:40] LABS: CALCIUM 9.1 mg/dl (8.5-10.1); CREATININE 1.9 mg/dl (0.60-1.20); POTASSIUM 3.5 mmol/L (3.5-5.1)
[2017-12-13] MEDS: ALBUT/IPRATROP 3MG/0.5MG NEB 3 ML VIAL INH SCH ×2 (07:05→11:12)
[2017-12-13] MEDS: LABETALOL HCL IV 5 MG/ML 20ML IV PRN (07:05)
[2017-12-13] MEDS: BUDESONIDE 0.5 MG/2 ML VIAL (PULMICORT) INH SCH ×2 (07:05→19:10)
--- NOTE | 2017-12-13 07:16 | DIAGNOSTIC IMAGING REPORT ---
CHEST ONE VIEW PORTABLE CLINICAL HISTORY: 77 years-old Female presenting with f/u CHF, COPD, pneumonia. TECHNIQUE: Portable upright AP view of the chest was obtained. COMPARISON: 12/10/2017. FINDINGS: Atherosclerosis of aortic arch. Cardiac silhouette enlarged. Bronchial wall thickening increased from prior. Interval development of hazy opacity in the right upper lung. Persistent right basilar opacity. Small bilateral pleural effusion suspected. No large pneumothorax. Degenerative changes of the thoracic spine. IMPRESSION: 1. Persistent left basilar consolidation with interval development of right upper lung infiltrate. The findings raise concern for multifocal pneumonia. 2. Bilateral small pleural effusions suspected. 3. Cardiomegaly with congestive change. Pulmonary infiltrates are not characteristic of edema. Electronically signed by: Roel Dorman M.D. 12/13/2017 7:15 AM Dictated Date/Time: 12/13/2017 7:13 AM
[2017-12-13] MEDS ORDERED: PIPERACILL/TAZOBAC CONSULT ACTIVE PRN (07:30)
[2017-12-13] MEDS ORDERED: FUROSEMIDE 40 MG/4 ML VIAL ONE (07:32)
[2017-12-13] MEDS ORDERED: FUROSEMIDE INJ 80 MG in SYRINGE 0 ML IV ONE (07:35)
[2017-12-13] MEDS ORDERED: PIPERACILL/TAZOBAC IV 3.375 GM in DEXTROSE 5% 100ML 100 ML IV ONE (07:45)
[2017-12-13] MEDS ORDERED: HEPARIN IV BOLUS 4,000 UNIT in SYRINGE 0 ML IV ONE (08:00)
[2017-12-13] MEDS ORDERED: HEPARIN 25,000 UNIT/500ML D5W 500 ML IV SCH (08:00)
[2017-12-13 08:09] LABS: HEMATOCRIT 31.3 % (37-47); HEMOGLOBIN 10.4 g/dL (12.0-16.0); IG# 0.04 K/uL (0.00-0.02); LYMPH % 20.7 %; LYMPH ABS # 1.16 K/uL (1.2-3.4); MEAN CELL VOLUME 89.9 fL (80-100); MEAN CORPUSCULAR HEMOGLOBIN 29.9 pg (25-34); MEAN PLATELET VOLUME 10.5 fL (7.4-10.4); MONO % 9.1 %; MONO ABS # 0.51 K/uL (0.11-0.59); NEUT % 69.5 %; NEUT ABS # 3.89 K/uL (1.4-6.5); PLATELET COUNT 115 K/uL (130-400); RED CELL DISTRIBUTION WIDTH SD 45.9 fL (36.4-46.3)
[2017-12-13 08:13] LABS: MEAN CORPUSCULAR HGB CONC 33.2 g/dl (32-36)
[2017-12-13] MEDS: INSULIN ASPART 100 UNITS/ML 3 ML PEN SC SCH ×4 (08:19→20:26)
[2017-12-13] MEDS: METHYLPREDNISOLONE IV 40 MG in SYRINGE 0 ML IV SCH ×2 (08:21→20:18)
[2017-12-13] MEDS: POTASSIUM CHLORIDE 20 MEQ TABCR PO SCH ×3 (08:22→20:19)
[2017-12-13] MEDS: ISOSORBIDE MONONITRATE 30 MG TABCR PO SCH (08:42)
[2017-12-13] MEDS: PANTOprazole SOD 40 MG TAB PO SCH (08:43)
[2017-12-13] MEDS: GUAIFENESIN 600 MG TABCR PO SCH ×2 (08:43→20:21)
[2017-12-13] MEDS: CALCITRIOL 0.25 MCG CAP PO SCH (08:43)
[2017-12-13] MEDS: CARVEDILOL 25 MG TAB PO SCH ×2 (08:44→20:20)
[2017-12-13] MEDS: FERROUS SULFATE 325 MG TAB PO SCH (08:44)
[2017-12-13] MEDS: ASPIRIN 81 MG ECTAB PO SCH (08:44)
[2017-12-13] MEDS ORDERED: INSULIN GLARGINE SOLOSTAR 100 UNITS/ML 3 ML PEN SC SCH ×2 (09:00)
[2017-12-13] MEDS: PIPERACILL/TAZOBAC IV 3.375 GM in SODIUM CHLORIDE 0.9% 100ML 100 ML IV SCH ×2 (13:52→22:19)
[2017-12-13] MEDS ORDERED: PIPERACILL/TAZOBAC IV 3.375 GM in DEXTROSE 5% 100ML 100 ML IV SCH (14:00)
[2017-12-13 14:52] LABS: PTT PATIENT 73.2 SECONDS (21.0-31.0)
[2017-12-13] MEDS: LEVALBUTEROL 1.25MG/3ML NEB INH SCH ×2 (14:56→19:10)
--- NOTE | 2017-12-13 15:36 | Pharmacy Progress Note ---
Pharmacy Glycemic Short Note 2 Date of Service Dec 13, 2017. OUTPATIENT ANTIDIABETIC REGIMEN: * Novolog per sliding scale (up to 60 units/day as per [facility] records) * Lantus 25 units qday * A1c = 7.4 % 09/24/17 ASSESSMENT: 12/13/17 * BSGs improved over the past 24 hours, however, prednisone was changed to solu- medrol 40 mg IV every 12 hours starting this morning. I anticipate increased needs while on solu-medrol. During a recent admission, Magui was well controlled on 25-29 units SQ BID of Lantus while on same dose of IV steroids. I am hesitant to increase basal that significantly due to BSGs on the low side so far today; 74 and 112 mg/dL * Tighten CF/CR to 10/3 based on previous BSG data 12/12/17 * Patient continues to experience steroid induced hyperglycemia despite addition of NPH to regimen. Patient remains on Prednisone 40 mg PO daily. * BSGs from the past 24 hours: 125, 231, 201, 219, 129 * Fasting BSG is at goal - no changes to basal insulin * Post-prandials BSGs are elevated - tighten CF/CR PLAN FOR INPATIENT GLYCEMIC CONTROL: * Basal insulin: - increase * d/c NPH * Lantus 30 units qAM, then 0-18 units SQ qPM * 0 units for BSG < 140, 9 units for 140-180, 18 units for > 180 * Bolus Insulin - tighten * NOVOLOG per scale ACHS or Q6hrs while NPO * Goal Range: Low 110 mg/dL - High 150 mg/dL * Correction Factor: 10 mg/dL/unit * Nutritional / Prandial insulin per carb ratio of 1 unit per 3 grams CHO consumed DISCHARGE RECOMMENDATIONS: * Most recent A1c indicates good outpatient control * Continue outpatient regimen with close f/u with outpatient provider
[2017-12-13] MEDS ORDERED: WARFARIN SOD 4 MG TAB PO SCH (16:00)
[2017-12-13] MEDS: WARFARIN SOD 4 MG TAB PO SCH (16:23)
--- NOTE | 2017-12-13 19:15 | Progress Note ---
Medicine Progress Note Date & Time of Visit: Dec 13, 2017 at 07:40 . Subjective Confused during the night. No fever. Persistent chest congestion, nonproductive cough, dyspnea. No chest pain. No nausea, vomiting, diarrhea. Still has Gaines catheter. . Objective Last 8 Hrs Date Time Temp Pulse Resp B/P (MAP) Pulse Ox O2 Delivery O2 Flow Rate FiO2 12/13/17 16:00 Nasal Cannula 2.0 12/13/17 15:22 36.4 74 18 173/86 (115) 93 Room Air 12/13/17 14:56 85 18 97 Room Air 12/13/17 12:00 Nasal Cannula 2.0 12/13/17 11:59 36.6 77 16 145/72 (96) 97 2.0 Physical Exam: General- lying in bed, no acute distress Lungs- scattered rhonchi, diffuse moderate wheezing; no respiratory distress Cardiovascular- irregular; no gallop appreciated; + JVD; 1+ pretibial edema Abdomen- + bowel sounds, soft, nontender - Gaines cath Extremities- no cyanosis; no calf tenderness; chronic venous stasis changes lower extremities Neuro-confused Skin- warm & dry . Laboratory Results: Last 24 Hours Test 12/12/17 20:27 12/13/17 05:30 12/13/17 06:43 12/13/17 06:57 Bedside Glucose 138 mg/dl 73 mg/dl 74 mg/dl White Blood Count 5.60 K/uL Red Blood Count 3.48 M/uL Hemoglobin 10.4 g/dL Hematocrit 31.3 % Mean Corpuscular Volume 89.9 fL Mean Corpuscular Hemoglobin 29.9 pg Mean Corpuscular Hemoglobin Concent 33.2 g/dl Platelet Count 115 K/uL Mean Platelet Volume 10.5 fL Neutrophils (%) (Auto) 69.5 % Lymphocytes (%) (Auto) 20.7 % Monocytes (%) (Auto) 9.1 % Eosinophils (%) (Auto) 0.0 % Basophils (%) (Auto) 0.0 % Neutrophils # (Auto) 3.89 K/uL Lymphocytes # (Auto) 1.16 K/uL Monocytes # (Auto) 0.51 K/uL Eosinophils # (Auto) 0.00 K/uL Basophils # (Auto) 0.00 K/uL RDW Standard Deviation 45.9 fL RDW Coefficient of Variation 14.0 % Immature Granulocyte % (Auto) 0.7 % Immature Granulocyte # (Auto) 0.04 K/uL Prothrombin Time 16.7 SECONDS Prothromb Time International Ratio 1.6 Activated Partial Thromboplast Time 38.0 SECONDS Partial Thromboplastin Ratio 1.5 Sodium Level 133 mmol/L Potassium Level 3.5 mmol/L Chloride Level 97 mmol/L Carbon Dioxide Level 32 mmol/L Anion Gap 4.0 mmol/L Blood Urea Nitrogen 62 mg/dl Creatinine 1.90 mg/dl Est Creatinine Clear Calc Drug Dose 26.8 ml/min Estimated GFR () 28.6 Estimated GFR (Non- 24.6 BUN/Creatinine Ratio 32.4 Random Glucose 78 mg/dl Calcium Level 9.1 mg/dl Test 12/13/17 07:49 12/13/17 11:16 12/13/17 12:44 12/13/17 14:19 Bedside Glucose 103 mg/dl 112 mg/dl Arterial Blood pH 7.47 Arterial Blood Partial Pressure CO2 44 mmHg Arterial Blood Partial Pressure O2 108 mm/Hg Arterial Blood HCO3 31 mmol/L Arterial Blood Oxygen Saturation 98.1 % Arterial Blood Base Excess 7.1 mEq/L Arterial Blood Gas Delivery 2L Jonathan Test POS Activated Partial Thromboplast Time 73.2 SECONDS Partial Thromboplastin Ratio 2.8 Test 12/13/17 16:16 Bedside Glucose 89 mg/dl Diagnostic Imaging: PORTABLE CHEST X-RAY IMPRESSION: 1. Persistent left basilar consolidation with interval development of right upper lung infiltrate. The findings raise concern for multifocal pneumonia. 2. Bilateral small pleural effusions suspected. 3. Cardiomegaly with congestive change. Pulmonary infiltrates are not characteristic of edema. Electronically signed by: Roel Dorman M.D. 12/13/2017 7:15 AM Dictated Date/Time: 12/13/2017 7:13 AM . Assessment & Plan PNEUMONIA Fever, cough, shortness of breath at time of admission. Chest x-ray demonstrated infiltrate left base. Community-acquired pneumonia with underlying COPD. Blood cultures obtained. Sputum culture growing moderate normal eligio. [employer] swab for influenza A/B Ag negative; check PCR. MRSA nasal screen negative, so MRSA unlikely. Initially received levofloxacin without improvement. Today's chest x-ray shows persistent infiltrate left base as well as development of right upper lobe infiltrate. Change therapy to piperacillin/tazobactam. EXACERBATION OF COPD Exacerbation secondary to pneumonia. Oxygen saturation as low as 87% in ED. Continue steroids. Continue Duoneb nebulizer treatments CHRONIC HYPOXIC RESPIRATORY FAILURE Secondary to COPD. On home O2 at 4 L/min. Continue supplemental O2. CORONARY ARTERY DISEASE History of ischemic heart disease, status post PCI. No anginal symptoms. Continue aspirin, carvedilol, nitrates, statin. CHF Chronic diastolic left ventricular heart failure. Probable overdiuresis as discussed below. Diuretics initially held because of metabolic alkalosis and elevated creatinine. IV furosemide administered this morning because of worsening respiratory symptoms. Follow and titrate therapy. ATRIAL FIBRILLATION Rate controlled on carvedilol. Continue anticoagulation with warfarin. HYPERTENSION Continue carvedilol and nitrates. CHRONIC KIDNEY DISEASE STAGE IV Serum creatinine at time of admission 2.13. Nephrology consulted. Diuretics being held. Creatinine today = 1.9. HYPOKALEMIA Serum potassium at time of admission was 2.9. Receiving replacement. K this morning = 3.5. Follow. METABOLIC ACIDOSIS Total CO2 38 at time of admission. ABG on oxygen supplementation 12/10 demonstrated PO2 133, PCO2 48, bicarb 36, pH 7.50. Probable metabolic acidosis secondary to diuretic therapy. Total CO2 today = 32. Titrate diuretics. Follow. DM TYPE 2 Random glucose at time of admission 208. Repeat blood sugar as high as 360. Blood sugars elevated secondary to acute illness and glucocorticoids. Pharmacy consulted for glycemic management. FBS this morning = 73. UTI (present on admission) Urinalysis day of admission demonstrated leukocyte esterase, 10-30 WBCs, bacteria. Urine culture grew Citrobacter freundii, pansensitive. Initially treated with levofloxacin. Now receiving piperacillin/tazobactam as discussed above. ALTERED MENTAL STATUS Probable delirium / encephalopathy secondary to infections. Avoid medications with anticholinergic side effects- levofloxacin and ipratropium discontinued. VTE PROPHYLAXIS Receiving warfarin, but INR subtherapeutic. Add SQ heparin until INR therapeutic. Ambulate. DISPOSITION To be determined. Family Medicine follow-up with Dr. Waterman. . Current Inpatient Medications: Current Inpatient Medications Medications (Trade) Dose Ordered Sig/Rose Route Start Time Stop Time Status Last Admin Dose Admin Acetaminophen (Tylenol Tab) 650 mg Q4H PRN PO 12/10/17 13:00 01/09/18 12:59 Ondansetron HCl (Zofran Inj) 4 mg Q6H PRN IV 12/10/17 13:00 01/09/18 12:59 Aspirin (Ecotrin Tab) 81 mg DAILY PO 12/11/17 09:00 01/10/18 08:59 12/13/17 08:44 81 MG Calcitriol (Rocaltrol Cap) 0.5 mcg DAILY PO 12/11/17 09:00 01/10/18 08:59 12/13/17 08:43 0.5 MCG Carvedilol (Coreg Tab) 25 mg BID PO 12/10/17 21:00 01/09/18 20:59 12/13/17 08:44 25 MG Ferrous Sulfate (Feosol Tab) 325 mg DAILY PO 12/11/17 09:00 01/10/18 08:59 12/13/17 08:44 325 MG Isosorbide Mononitrate (Imdur Ext Rel Tab) 30 mg DAILY PO 12/11/17 09:00 01/10/18 08:59 12/13/17 08:42 30 MG Pantoprazole Sodium (Protonix Tab) 40 mg DAILY PO 12/11/17 09:00 01/10/18 08:59 12/13/17 08:43 40 MG Insulin Aspart (novoLOG ASPART) SLIDING SCALE If C... ACHS SC 12/10/17 16:00 01/09/18 15:59 12/13/17 17:20 4 UNITS Glucose (Glucose 40% Gel) 15-30 GRAMS 15 GRAMS... UD PRN PO 12/10/17 14:00 01/09/18 13:59 Glucose (Glucose Chew Tab) 4-8 Tablets 4 Tabl... UD PRN PO 12/10/17 14:00 01/09/18 13:59 Dextrose (Dextrose 50% 50ML Syringe) 25-50ML OF 50% DW IV FOR... UD PRN IV 12/10/17 14:00 01/09/18 13:59 Glucagon (Glucagon Inj) 1 mg UD PRN SQ 12/10/17 14:00 01/09/18 13:59 Miscellaneous Information (Consult Glycemic Management Pharmacy) 1 ea UD PRN N/A 12/10/17 14:04 01/09/18 14:03 Budesonide (Pulmicort Respules 0.5MG/ 2ML Neb Soln) 0.5 mg BIDR INH 12/11/17 08:00 01/10/18 07:59 12/13/17 19:10 0.5 MG Labetalol HCl (Normodyne IV) 10 mg Q6H PRN IV 12/12/17 00:30 01/11/18 00:29 12/13/17 07:05 10 MG Warfarin Sodium (Coumadin Tab) 4 mg DAILY@16 PO 12/12/17 16:00 01/11/18 15:59 12/13/17 16:23 4 MG Guaifenesin (Mucinex Contr Rel Tab) 600 mg Q12 PO 12/12/17 21:00 01/11/18 20:59 12/13/17 08:43 600 MG Lovastatin (Mevacor Tab) 80 mg HS PO 12/12/17 22:00 01/11/18 21:59 12/12/17 21:41 80 MG Potassium Chloride (Klor-Con Tab) 20 meq TID PO 12/13/17 09:00 01/10/18 20:59 12/13/17 13:53 20 MEQ Miscellaneous Information (Consult) 1 ea UD PRN N/A 12/13/17 07:30 01/12/18 07:29 Methylprednisolone Sodium Succinate 40 mg/Syringe 0.64 ml @ 1.5 mls/min Q12 IV 12/13/17 09:00 01/12/18 08:59 12/13/17 08:21 1.5 MLS/MIN Heparin Sodium/ Dextrose 500 ml @ 16 mls/hr Q24H IV 12/13/17 08:00 01/12/18 07:59 12/13/17 08:24 17 MLS/HR Piperacillin Sod/ Tazobactam Sod 3.375 gm/Sodium Chloride 115 ml @ 28.75 mls/ hr Q8 IV 12/13/17 14:00 12/20/17 13:59 12/13/17 13:52 28.75 MLS/HR Levalbuterol (Xopenex 1.25MG/ 3ML Neb) 1.25 mg Q6R INH 12/13/17 15:00 01/12/18 14:59 12/13/17 19:10 1.25 MG Solifenacin (Vesicare) 5 mg DAILY PO 12/14/17 09:00 01/13/18 08:59 Insulin Glargine (Lantus Solostar Pen) SEE PROTOCOL BID SC 12/13/17 21:00 01/12/18 20:59
[2017-12-13] MEDS: LOVASTATIN 20 MG TAB PO SCH (20:21)
[2017-12-13] MEDS: INSULIN GLARGINE SOLOSTAR 100 UNITS/ML 3 ML PEN SC SCH (20:27)
[2017-12-13 21:48] LABS: PTT PATIENT 57.2 SECONDS (21.0-31.0)
[2017-12-14] VITALS (15 sets, daily range): BP systolic 145–201; BP diastolic 68–119; PULSE 68–91; TEMP 36.3–36.8; O2SAT 87–100
[2017-12-14] MEDS: LEVALBUTEROL 1.25MG/3ML NEB INH SCH ×4 (02:02→18:59)
[2017-12-14] MEDS: LABETALOL HCL IV 5 MG/ML 20ML IV PRN ×2 (04:23→16:17)
[2017-12-14] MEDS: PIPERACILL/TAZOBAC IV 3.375 GM in SODIUM CHLORIDE 0.9% 100ML 100 ML IV SCH ×3 (05:56→23:14)
[2017-12-14] MEDS: BUDESONIDE 0.5 MG/2 ML VIAL (PULMICORT) INH SCH ×2 (07:07→18:59)
[2017-12-14 07:26] LABS: HEMATOCRIT 33.1 % (37-47); MEAN CORPUSCULAR HEMOGLOBIN 29.6 pg (25-34); MEAN CORPUSCULAR HGB CONC 33.2 g/dl (32-36); MEAN PLATELET VOLUME 10.2 fL (7.4-10.4); PLATELET COUNT 121 K/uL (130-400); RED CELL DISTRIBUTION WIDTH CV 13.8 % (11.5-14.5); RED CELL DISTRIBUTION WIDTH SD 45.5 fL (36.4-46.3); WHITE BLOOD COUNT 4.18 K/uL (4.8-10.8)
[2017-12-14] MEDS: INSULIN ASPART 100 UNITS/ML 3 ML PEN SC SCH ×4 (07:37→21:00)
[2017-12-14] MEDS: INSULIN GLARGINE SOLOSTAR 100 UNITS/ML 3 ML PEN SC SCH ×2 (07:38→21:32)
[2017-12-14] MEDS: GUAIFENESIN 600 MG TABCR PO SCH ×2 (07:41→21:31)
[2017-12-14] MEDS: ISOSORBIDE MONONITRATE 30 MG TABCR PO SCH (07:41)
[2017-12-14] MEDS: METHYLPREDNISOLONE IV 40 MG in SYRINGE 0 ML IV SCH ×2 (07:41→21:28)
[2017-12-14] MEDS: FERROUS SULFATE 325 MG TAB PO SCH (07:41)
[2017-12-14] MEDS: PANTOprazole SOD 40 MG TAB PO SCH (07:41)
[2017-12-14] MEDS: CALCITRIOL 0.25 MCG CAP PO SCH (07:42)
[2017-12-14] MEDS: ASPIRIN 81 MG ECTAB PO SCH (07:42)
[2017-12-14] MEDS: POTASSIUM CHLORIDE 20 MEQ TABCR PO SCH ×3 (07:42→21:30)
[2017-12-14] MEDS: CARVEDILOL 25 MG TAB PO SCH ×2 (07:43→21:31)
[2017-12-14 07:46] LABS: PTT PATIENT 66.8 SECONDS (21.0-31.0)
[2017-12-14 08:01] LABS: CALCIUM 9.4 mg/dl (8.5-10.1); CREATININE 1.92 mg/dl (0.60-1.20); POTASSIUM 3.4 mmol/L (3.5-5.1)
--- NOTE | 2017-12-14 13:20 | Pharmacy Progress Note ---
Pharmacy Glycemic Short Note 2 Date of Service Dec 14, 2017. OUTPATIENT ANTIDIABETIC REGIMEN: * Novolog per sliding scale (up to 60 units/day as per [facility] records) * Lantus 25 units qday * A1c = 7.4 % 09/24/17 ASSESSMENT: 12/14/17: * Patient's AM Lantus dose was omitted this morning for BSG 77mg/dL. As a result, pre-lunch BSG significantly elevated (293mg/dL). * Will remove 0 dose option from Lantus entry * BSGs have been looking relatively good otherwise. Will continue to adjust regimen as needed as steroids change. 12/13/17 * BSGs improved over the past 24 hours, however, prednisone was changed to solu- medrol 40 mg IV every 12 hours starting this morning. I anticipate increased needs while on solu-medrol. During a recent admission, Magui was well controlled on 25-29 units SQ BID of Lantus while on same dose of IV steroids. I am hesitant to increase basal that significantly due to BSGs on the low side so far today; 74 and 112 mg/dL * Tighten CF/CR to 10/3 based on previous BSG data PLAN FOR INPATIENT GLYCEMIC CONTROL: * Basal insulin: * Lantus 9-18 units SQ BID per scale -- dose omitted this morning; give 10 units x1 dose at lunchtime * 9 units for BSG 180 or less, 18 units for BSG > 180 * Bolus Insulin: * NOVOLOG per scale ACHS or Q6hrs while NPO * Goal Range: Low 110 mg/dL - High 150 mg/dL * Correction Factor: 12 mg/dL/unit * Nutritional / Prandial insulin per carb ratio of 1 unit per 4 grams CHO consumed DISCHARGE RECOMMENDATIONS: * Most recent A1c indicates good outpatient control for a 77yo patient w/ multiple comorbidities. * It is likely reasonable to continue outpatient regimen after discharge, as long as patient is not experiencing hypoglycemic episodes at home. * If patient will be discharge on steroids, may require additional glycemic coverage on discharge. Recommend close f/u with PCP.
[2017-12-14] MEDS: WARFARIN SOD 4 MG TAB PO SCH (16:08)
[2017-12-14] MEDS: INSULIN GLARGINE SOLOSTAR 100 UNITS/ML 3 ML PEN SC ONE ×2 (16:09→17:04)
--- NOTE | 2017-12-14 20:02 | Progress Note ---
Medicine Progress Note Date & Time of Visit: Dec 14, 2017 at 15:10 . Subjective CC: Follow-up visit for pneumonia, COPD, and other problems. HPI: No fever. Cough improved; less short of breath. Some chest discomfort with coughing, but no anginal symptoms. Ongoing confusion, but not as severe. ROS: General- as noted above in HPI Resp- as noted above in HPI Cardiac- as noted above in HPI GI- no nausea, no vomiting, no diarrhea - Gaines cath . Objective Last 8 Hrs Date Time Temp Pulse Resp B/P (MAP) Pulse Ox O2 Delivery O2 Flow Rate FiO2 12/14/17 19:02 36.4 75 22 195/68 (110) 96 Room Air 12/14/17 18:59 80 20 95 Room Air 12/14/17 17:17 183/72 (109) 12/14/17 16:00 Room Air 12/14/17 15:25 36.4 91 20 145/75 (98) 87 Room Air 12/14/17 14:06 83 20 96 Room Air Physical Exam: General- lying in bed, no acute distress Lungs- scattered rhonchi, diffuse moderate wheezing; no respiratory distress Cardiovascular- irregular; no gallop appreciated; + JVD; 1+ pretibial edema Abdomen- + bowel sounds, soft, nontender - Gaines cath draining clear urine Extremities- no cyanosis; no calf tenderness; chronic venous stasis changes lower extremities Neuro- less confused, but only oriented to person and hospital Skin- warm & dry . Laboratory Results: Last 24 Hours Test 12/13/17 20:06 12/13/17 21:14 12/14/17 06:25 12/14/17 06:44 Bedside Glucose 182 mg/dl 77 mg/dl Activated Partial Thromboplast Time 57.2 SECONDS 66.8 SECONDS Partial Thromboplastin Ratio 2.2 2.6 White Blood Count 4.18 K/uL Red Blood Count 3.72 M/uL Hemoglobin 11.0 g/dL Hematocrit 33.1 % Mean Corpuscular Volume 89.0 fL Mean Corpuscular Hemoglobin 29.6 pg Mean Corpuscular Hemoglobin Concent 33.2 g/dl RDW Standard Deviation 45.5 fL RDW Coefficient of Variation 13.8 % Platelet Count 121 K/uL Mean Platelet Volume 10.2 fL Prothrombin Time 20.8 SECONDS Prothromb Time International Ratio 2.0 Sodium Level 138 mmol/L Potassium Level 3.4 mmol/L Chloride Level 99 mmol/L Carbon Dioxide Level 31 mmol/L Anion Gap 8.0 mmol/L Blood Urea Nitrogen 55 mg/dl Creatinine 1.92 mg/dl Est Creatinine Clear Calc Drug Dose 26.6 ml/min Estimated GFR () 28.2 Estimated GFR (Non- 24.3 BUN/Creatinine Ratio 28.6 Random Glucose 85 mg/dl Calcium Level 9.4 mg/dl Vitamin B12 Level 423 pg/mL 25-Hydroxy Vitamin D Total 21.2 ng/ml Thyroid Stimulating Hormone (TSH) 0.872 uIu/ml Test 12/14/17 11:57 12/14/17 16:05 Bedside Glucose 293 mg/dl 105 mg/dl Assessment & Plan PNEUMONIA Fever, cough, shortness of breath at time of admission. Chest x-ray demonstrated infiltrate left base. Community-acquired pneumonia with underlying COPD. Blood cultures obtained. Sputum culture growing moderate normal eligio. [employer] swab for influenza A/B Ag negative; check PCR. MRSA nasal screen negative, so MRSA pneumonia unlikely. Initially received levofloxacin without improvement. Chest x-ray 12/13 showed persistent infiltrate left base as well as development of right upper lobe infiltrate. Changed therapy to piperacillin/tazobactam. EXACERBATION OF COPD Exacerbation secondary to pneumonia. Oxygen saturation as low as 87% in ED. Continue steroids-wean as tolerated. Continue nebulizer treatments CHRONIC HYPOXIC RESPIRATORY FAILURE Secondary to COPD. On home O2 at 4 L/min. Continue supplemental O2. CORONARY ARTERY DISEASE History of ischemic heart disease, status post PCI. No anginal symptoms. Continue aspirin, carvedilol, nitrates, statin. CHF Chronic diastolic left ventricular heart failure. Probable overdiuresis as discussed below. Diuretics initially held because of metabolic alkalosis and elevated creatinine. IV furosemide administered yesterday. Check follow-up chest x-ray tomorrow morning. Follow and titrate therapy. ATRIAL FIBRILLATION Rate controlled on carvedilol. Continue anticoagulation with warfarin. HYPERTENSION Continue carvedilol and nitrates. CHRONIC KIDNEY DISEASE STAGE IV Serum creatinine at time of admission 2.13. Nephrology consulted. Diuretics being held. Creatinine today = 1.92. HYPOKALEMIA Serum potassium at time of admission was 2.9. Receiving replacement. K this morning = 3.4. Follow. METABOLIC ACIDOSIS Total CO2 38 at time of admission. ABG on oxygen supplementation 12/10 demonstrated PO2 133, PCO2 48, bicarb 36, pH 7.50. Probable metabolic acidosis secondary to diuretic therapy. Total CO2 today = 31. Titrate diuretics. Follow. DM TYPE 2 Random glucose at time of admission 208. Repeat blood sugar as high as 360. Blood sugars elevated secondary to acute illness and glucocorticoids. Pharmacy consulted for glycemic management. FBS this morning = 77. UTI (present on admission) Urinalysis day of admission demonstrated leukocyte esterase, 10-30 WBCs, bacteria. Urine culture grew Citrobacter freundii, pansensitive. Initially treated with levofloxacin. Now receiving piperacillin/tazobactam as discussed above. ALTERED MENTAL STATUS Probable delirium / encephalopathy secondary to infections. Possible underlying dementia per clinic case management. Avoid medications with anticholinergic side effects- levofloxacin and ipratropium discontinued. VTE PROPHYLAXIS Continue warfarin. Ambulate. DISPOSITION Anticipate need for skilled care. Family Medicine follow-up with Dr. Waterman. . Current Inpatient Medications: Current Inpatient Medications Medications (Trade) Dose Ordered Sig/Rose Route Start Time Stop Time Status Last Admin Dose Admin Acetaminophen (Tylenol Tab) 650 mg Q4H PRN PO 12/10/17 13:00 01/09/18 12:59 Ondansetron HCl (Zofran Inj) 4 mg Q6H PRN IV 12/10/17 13:00 01/09/18 12:59 Aspirin (Ecotrin Tab) 81 mg DAILY PO 12/11/17 09:00 01/10/18 08:59 12/14/17 07:42 81 MG Calcitriol (Rocaltrol Cap) 0.5 mcg DAILY PO 12/11/17 09:00 01/10/18 08:59 12/14/17 07:42 0.5 MCG Carvedilol (Coreg Tab) 25 mg BID PO 12/10/17 21:00 01/09/18 20:59 12/14/17 07:43 25 MG Ferrous Sulfate (Feosol Tab) 325 mg DAILY PO 12/11/17 09:00 01/10/18 08:59 12/14/17 07:41 325 MG Isosorbide Mononitrate (Imdur Ext Rel Tab) 30 mg DAILY PO 12/11/17 09:00 01/10/18 08:59 12/14/17 07:41 30 MG Pantoprazole Sodium (Protonix Tab) 40 mg DAILY PO 12/11/17 09:00 01/10/18 08:59 12/14/17 07:41 40 MG Insulin Aspart (novoLOG ASPART) SLIDING SCALE If C... ACHS SC 12/10/17 16:00 01/09/18 15:59 12/14/17 17:04 4 UNITS Glucose (Glucose 40% Gel) 15-30 GRAMS 15 GRAMS... UD PRN PO 12/10/17 14:00 01/09/18 13:59 Glucose (Glucose Chew Tab) 4-8 Tablets 4 Tabl... UD PRN PO 12/10/17 14:00 01/09/18 13:59 Dextrose (Dextrose 50% 50ML Syringe) 25-50ML OF 50% DW IV FOR... UD PRN IV 12/10/17 14:00 01/09/18 13:59 Glucagon (Glucagon Inj) 1 mg UD PRN SQ 12/10/17 14:00 01/09/18 13:59 Miscellaneous Information (Consult Glycemic Management Pharmacy) 1 ea UD PRN N/A 12/10/17 14:04 01/09/18 14:03 Budesonide (Pulmicort Respules 0.5MG/ 2ML Neb Soln) 0.5 mg BIDR INH 12/11/17 08:00 01/10/18 07:59 12/14/17 18:59 0.5 MG Labetalol HCl (Normodyne IV) 10 mg Q6H PRN IV 12/12/17 00:30 01/11/18 00:29 12/14/17 16:17 10 MG Warfarin Sodium (Coumadin Tab) 4 mg DAILY@16 PO 12/12/17 16:00 01/11/18 15:59 12/14/17 16:08 4 MG Guaifenesin (Mucinex Contr Rel Tab) 600 mg Q12 PO 12/12/17 21:00 01/11/18 20:59 12/14/17 07:41 600 MG Lovastatin (Mevacor Tab) 80 mg HS PO 12/12/17 22:00 01/11/18 21:59 12/13/17 20:21 80 MG Potassium Chloride (Klor-Con Tab) 20 meq TID PO 12/13/17 09:00 01/10/18 20:59 12/14/17 16:09 20 MEQ Miscellaneous Information (Consult) 1 ea UD PRN N/A 12/13/17 07:30 01/12/18 07:29 Methylprednisolone Sodium Succinate 40 mg/Syringe 0.64 ml @ 1.5 mls/min Q12 IV 12/13/17 09:00 01/12/18 08:59 12/14/17 07:41 1.5 MLS/MIN Piperacillin Sod/ Tazobactam Sod 3.375 gm/Sodium Chloride 115 ml @ 28.75 mls/ hr Q8 IV 12/13/17 14:00 12/20/17 13:59 12/14/17 16:08 28.75 MLS/HR Levalbuterol (Xopenex 1.25MG/ 3ML Neb) 1.25 mg Q6R INH 12/13/17 15:00 01/12/18 14:59 12/14/17 18:59 1.25 MG Solifenacin (Vesicare) 5 mg DAILY PO 12/14/17 09:00 01/13/18 08:59 12/14/17 07:43 5 MG Insulin Glargine (Lantus Solostar Pen) SEE PROTOCOL BID SC 12/13/17 21:00 01/12/18 20:59 12/13/17 20:27 18 UNITS
[2017-12-14] MEDS: LOVASTATIN 20 MG TAB PO SCH (21:30)
[2017-12-15] VITALS (13 sets, daily range): BP systolic 115–201; BP diastolic 80–98; PULSE 58–96; TEMP 36.1–36.5; O2SAT 93–100
[2017-12-15] MEDS: LEVALBUTEROL 1.25MG/3ML NEB INH SCH ×3 (02:06→11:10)
[2017-12-15] MEDS: PIPERACILL/TAZOBAC IV 3.375 GM in SODIUM CHLORIDE 0.9% 100ML 100 ML IV SCH ×3 (05:46→20:40)
[2017-12-15] MEDS: BUDESONIDE 0.5 MG/2 ML VIAL (PULMICORT) INH SCH ×2 (07:03→19:51)
--- NOTE | 2017-12-15 07:09 | DIAGNOSTIC IMAGING REPORT ---
CHEST ONE VIEW PORTABLE CLINICAL HISTORY: f/u pneumonia, COPD, CHF pneumonia COMPARISON STUDY: 12/13/2017 FINDINGS: Improving right upper lung and medial left basilar infiltrative process. Moderate residual. Lungs otherwise appear clear. Mild stable cardiomegaly. IMPRESSION: Improving bilateral parenchymal infiltrates. Moderate residual. The above report was generated using voice recognition software. It may contain grammatical, syntax or spelling errors. Electronically signed by: Jaleel Xie M.D. 12/15/2017 7:08 AM Dictated Date/Time: 12/15/2017 7:07 AM
[2017-12-15] MEDS: POTASSIUM CHLORIDE 20 MEQ TABCR PO SCH ×3 (07:18→20:34)
[2017-12-15] MEDS: FERROUS SULFATE 325 MG TAB PO SCH (07:18)
[2017-12-15] MEDS: CARVEDILOL 25 MG TAB PO SCH ×2 (07:18→20:33)
[2017-12-15] MEDS: CHOLECALCIFEROL 1000 INTER.UNIT TAB PO SCH (07:19)
[2017-12-15] MEDS: ISOSORBIDE MONONITRATE 30 MG TABCR PO SCH (07:19)
[2017-12-15] MEDS: GUAIFENESIN 600 MG TABCR PO SCH ×2 (07:19→20:33)
[2017-12-15] MEDS: ASPIRIN 81 MG ECTAB PO SCH (07:20)
[2017-12-15] MEDS: FUROSEMIDE 80 MG TAB PO SCH ×2 (07:20→16:56)
[2017-12-15] MEDS: CALCITRIOL 0.25 MCG CAP PO SCH (07:25)
[2017-12-15] MEDS: INSULIN GLARGINE SOLOSTAR 100 UNITS/ML 3 ML PEN SC SCH ×2 (07:25→20:36)
[2017-12-15] MEDS: PANTOprazole SOD 40 MG TAB PO SCH (07:26)
[2017-12-15 07:30] LABS: INR 2.9 (0.9-1.1)
[2017-12-15 07:59] LABS: CALCIUM 9.4 mg/dl (8.5-10.1); POTASSIUM 4.4 mmol/L (3.5-5.1)
[2017-12-15] MEDS: INSULIN ASPART 100 UNITS/ML 3 ML PEN SC SCH ×4 (08:05→20:35)
[2017-12-15] MEDS: METHYLPREDNISOLONE IV 40 MG in SYRINGE 0 ML IV SCH ×2 (09:38→20:33)
[2017-12-15] MEDS ORDERED: NURSING VERBAL MED ORDER ONE (11:15)
--- NOTE | 2017-12-15 11:45 | DIAGNOSTIC IMAGING REPORT ---
CHEST ONE VIEW PORTABLE HISTORY: Short of breath. COMPARISON: Chest 12/15/2017. FINDINGS: The heart remains enlarged. Small bilateral pleural effusions persist. There is mild central pulmonary vascular congestion without overt edema. No focal lung consolidations to suggest pneumonia. No pneumothorax. IMPRESSION: 1. No change in the cardiomegaly and small bilateral pleural effusions. 2. Mild central pulmonary vascular congestion also persists. Electronically signed by: Raghavendra Cisneros M.D. 12/15/2017 11:44 AM Dictated Date/Time: 12/15/2017 11:42 AM
--- NOTE | 2017-12-15 12:43 | Progress Note ---
Internal Med Progress Note Date of Service: Dec 15, 2017. Provider Documentation: SUBJECTIVE: The patient was seen and examined in telemetry unit. She complains to have weakness and tiredness and nonproductive cough. Since that she has not improved much for the last 1 week. Does not have any chest pain, any abdominal pain, any nausea and/or vomiting. OBJECTIVE: Vital Signs-as noted below Exam: General-minimal distress at rest, generally very weak and lethargic Eyes-. Normal ENT-normal Neck-supple Lungs-decreased breath sounds especially at the bases with minimal crackles Heart-regular, no murmur Abdomen-distended, soft, bowel sounds present Extremities-1+ edema bilaterally Neuro-alert, awake and oriented 3 Generally weak but no focal sensory or motor deficit Lab data as noted below. ASSESSMENT & PLAN: PNEUMONIA Fever, cough, shortness of breath at time of admission. Chest x-ray demonstrated infiltrate left base. Community-acquired pneumonia with underlying COPD. 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 Initially received levofloxacin without improvement. Chest x-ray 12/13 showed persistent infiltrate left base as well as development of right upper lobe infiltrate. Changed therapy to piperacillin/tazobactam.-will continue for now EXACERBATION OF COPD Exacerbation secondary to pneumonia. Oxygen saturation as low as 87% in ED. Continue steroids-wean as tolerated. Continue nebulizer treatments Clinically stable CHRONIC HYPOXIC RESPIRATORY FAILURE Secondary to COPD. On home O2 at 4 L/min. Continue supplemental O2. CORONARY ARTERY DISEASE History of ischemic heart disease, status post PCI. No anginal symptoms. Continue aspirin, carvedilol, nitrates, statin. CHF Chronic diastolic left ventricular heart failure. Diuretics initially held because of metabolic alkalosis and elevated creatinine. Furosemide restarted -monitor PRP Repeat CXR today -no significant change compared with prior ATRIAL FIBRILLATION Rate controlled on carvedilol. Continue anticoagulation with warfarin. HYPERTENSION Continue carvedilol and nitrates. CHRONIC KIDNEY DISEASE STAGE IV Serum creatinine at time of admission 2.13. Nephrology consulted-appreciate Input . Diuretics being held. Creatinine today = 1.92. METABOLIC ALKALOSIS Total CO2 38 at time of admission. ABG on oxygen supplementation 12/10 demonstrated PO2 133, PCO2 48, bicarb 36, pH 7.50. Probable metabolic alkalosis secondary to diuretic therapy with respiratory acidosis. Titrate diuretics. DM TYPE 2 Random glucose at time of admission 208. Repeat blood sugar as high as 360. Blood sugars elevated secondary to acute illness and glucocorticoids. Pharmacy consulted for glycemic management. FBS this morning = 77. UTI (present on admission) Urinalysis day of admission demonstrated leukocyte esterase, 10-30 WBCs, bacteria. Urine culture grew Citrobacter freundii, pansensitive. Initially treated with levofloxacin. Now receiving piperacillin/tazobactam as discussed above. ALTERED MENTAL STATUS Probable delirium / encephalopathy secondary to infections. Possible underlying dementia per clinic case management. Avoid medications with anticholinergic side effects- levofloxacin and ipratropium discontinued. VTE PROPHYLAXIS Continue warfarin. Ambulate. DISPOSITION Anticipate need for skilled care. Family Medicine follow-up with Dr. Waterman. PT/OT evaluation Vital Signs: Date Time Temp Pulse Resp B/P (MAP) Pulse Ox O2 Delivery O2 Flow Rate FiO2 12/15/17 11:15 36.1 73 20 115/89 (98) 100 Nasal Cannula 2.0 12/15/17 11:11 83 22 97 Room Air 12/15/17 08:00 Room Air 12/15/17 07:15 36.4 82 18 182/98 (126) 100 Room Air 12/15/17 07:05 58 18 96 Room Air 12/15/17 04:00 95 Room Air 12/15/17 03:58 36.5 82 15 179/80 (113) 95 Room Air 12/15/17 02:07 81 18 96 Room Air 12/15/17 00:01 96 Room Air 12/14/17 23:34 36.4 75 18 181/96 (124) 94 Room Air 12/14/17 20:00 96 Room Air 12/14/17 19:02 36.4 75 22 195/68 (110) 96 Room Air 12/14/17 18:59 80 20 95 Room Air 12/14/17 17:17 183/72 (109) 12/14/17 16:00 Room Air 12/14/17 15:25 36.4 91 20 145/75 (98) 87 Room Air 12/14/17 14:06 83 20 96 Room Air Lab Results: Results Past 24 Hours Test 12/14/17 16:05 12/14/17 20:29 12/15/17 06:52 12/15/17 06:59 Range/Units Bedside Glucose 105 95 99 70-90 mg/dl Prothrombin Time 30.2 9.0-12.0 SECONDS Prothromb Time International Ratio 2.9 0.9-1.1 Sodium Level 140 136-145 mmol/L Potassium Level 4.4 3.5-5.1 mmol/L Chloride Level 104 98-107 mmol/L Carbon Dioxide Level 30 21-32 mmol/L Anion Gap 6.0 3-11 mmol/L Blood Urea Nitrogen 56 7-18 mg/dl Creatinine 2.00 0.60-1.20 mg/dl Est Creatinine Clear Calc Drug Dose 25.4 ml/min Estimated GFR () 26.8 Estimated GFR (Non- 23.2 BUN/Creatinine Ratio 28.1 10-20 Random Glucose 100 70-99 mg/dl Calcium Level 9.4 8.5-10.1 mg/dl
[2017-12-15] MEDS: LEVALBUTEROL 1.25MG/0.5ML NEB INH PRN ×2 (14:23→19:52)
[2017-12-15] MEDS: LABETALOL HCL IV 5 MG/ML 20ML IV PRN ×2 (15:25→23:37)
[2017-12-15] MEDS: WARFARIN SOD 4 MG TAB PO SCH (15:31)
[2017-12-15] MEDS: LOVASTATIN 20 MG TAB PO SCH (20:33)
[2017-12-16] VITALS (9 sets, daily range): BP systolic 108–207; BP diastolic 72–113; PULSE 69–84; TEMP 36.3–36.6; O2SAT 96–100
[2017-12-16 06:22] LABS: HEMATOCRIT 38.7 % (37-47); HEMOGLOBIN 12.6 g/dL (12.0-16.0); MEAN CELL VOLUME 91.3 fL (80-100); MEAN CORPUSCULAR HEMOGLOBIN 29.7 pg (25-34); MEAN CORPUSCULAR HGB CONC 32.6 g/dl (32-36); PLATELET COUNT 123 K/uL (130-400); RED CELL DISTRIBUTION WIDTH CV 14.2 % (11.5-14.5); RED CELL DISTRIBUTION WIDTH SD 47.1 fL (36.4-46.3)
[2017-12-16] MEDS: PIPERACILL/TAZOBAC IV 3.375 GM in SODIUM CHLORIDE 0.9% 100ML 100 ML IV SCH ×3 (06:24→21:33)
[2017-12-16] MEDS: BUDESONIDE 0.5 MG/2 ML VIAL (PULMICORT) INH SCH ×2 (06:56→18:51)
[2017-12-16 07:00] LABS: CALCIUM 9.3 mg/dl (8.5-10.1); CREATININE 2.06 mg/dl (0.60-1.20); PHOSPHORUS 4.7 mg/dl (2.5-4.9); POTASSIUM 4.1 mmol/L (3.5-5.1)
[2017-12-16] MEDS: INSULIN ASPART 100 UNITS/ML 3 ML PEN SC SCH ×4 (07:00→21:32)
[2017-12-16] MEDS: METHYLPREDNISOLONE IV 40 MG in SYRINGE 0 ML IV SCH ×2 (07:55→20:33)
[2017-12-16] MEDS: CARVEDILOL 25 MG TAB PO SCH ×2 (07:56→20:33)
[2017-12-16] MEDS: FERROUS SULFATE 325 MG TAB PO SCH (07:57)
[2017-12-16] MEDS: ASPIRIN 81 MG ECTAB PO SCH (07:57)
[2017-12-16] MEDS: POTASSIUM CHLORIDE 20 MEQ TABCR PO SCH ×3 (07:59→20:33)
[2017-12-16] MEDS: ISOSORBIDE MONONITRATE 30 MG TABCR PO SCH (07:59)
[2017-12-16] MEDS: GUAIFENESIN 600 MG TABCR PO SCH ×2 (08:00→20:33)
[2017-12-16] MEDS: FUROSEMIDE 80 MG TAB PO SCH ×2 (08:00→16:54)
[2017-12-16] MEDS: CHOLECALCIFEROL 1000 INTER.UNIT TAB PO SCH (08:01)
[2017-12-16] MEDS: CALCITRIOL 0.25 MCG CAP PO SCH (08:01)
[2017-12-16] MEDS: PANTOprazole SOD 40 MG TAB PO SCH (08:01)
[2017-12-16] MEDS: INSULIN GLARGINE SOLOSTAR 100 UNITS/ML 3 ML PEN SC SCH (08:02)
[2017-12-16] MEDS ORDERED: INSULIN GLARGINE SOLOSTAR 100 UNITS/ML 3 ML PEN SC ONE (13:45)
--- NOTE | 2017-12-16 15:33 | Progress Note ---
Internal Med Progress Note Date of Service: Dec 16, 2017. Provider Documentation: SUBJECTIVE: The patient was seen and examined in telemetry unit. She complains to have weakness and tiredness and nonproductive cough. Since that she has not improved much for the last 1 week. Does not have any chest pain, any abdominal pain, any nausea and/or vomiting. 12/16-complains of weakness with lack of motivation OBJECTIVE: Vital Signs-as noted below Exam: General-minimal distress at rest, generally very weak and lethargic feels sleepy Eyes-. Normal ENT-normal Neck-supple Lungs-decreased breath sounds especially at the bases with minimal crackles Heart-regular, no murmur Abdomen-distended, soft, bowel sounds present Extremities-1+ edema bilaterally Neuro-alert, awake and oriented 3 Generally weak but no focal sensory or motor deficit Lab data as noted below. ASSESSMENT & PLAN: PNEUMONIA Fever, cough, shortness of breath at time of admission. Chest x-ray demonstrated infiltrate left base. Community-acquired pneumonia with underlying COPD. 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 Initially received levofloxacin without improvement. Chest x-ray 12/13 showed persistent infiltrate left base as well as development of right upper lobe infiltrate. Changed therapy to piperacillin/tazobactam.-will continue for now No more symptoms EXACERBATION OF COPD Exacerbation secondary to pneumonia. Oxygen saturation as low as 87% in ED. Continue steroids-wean as tolerated. Continue nebulizer treatments Clinically stable CHRONIC HYPOXIC RESPIRATORY FAILURE Secondary to COPD. On home O2 at 4 L/min. Continue supplemental O2. CORONARY ARTERY DISEASE History of ischemic heart disease, status post PCI. No anginal symptoms. Continue aspirin, carvedilol, nitrates, statin. CHF Chronic diastolic left ventricular heart failure. Diuretics initially held because of metabolic alkalosis and elevated creatinine. Furosemide restarted -monitor PRP Repeat CXR today -no significant change compared with prior ATRIAL FIBRILLATION Rate controlled on carvedilol. Continue anticoagulation with warfarin. INR-therapeutic HYPERTENSION Continue carvedilol and nitrates. CHRONIC KIDNEY DISEASE STAGE IV Serum creatinine at time of admission 2.13. Nephrology consulted-appreciate Input . Diuretics being held. Creatinine today = 1.92>2/2. METABOLIC ALKALOSIS Total CO2 38 at time of admission. ABG on oxygen supplementation 12/10 demonstrated PO2 133, PCO2 48, bicarb 36, pH 7.50. Probable metabolic alkalosis secondary to diuretic therapy with respiratory acidosis. Titrate diuretics. DM TYPE 2 Random glucose at time of admission 208. Repeat blood sugar as high as 360. Blood sugars elevated secondary to acute illness and glucocorticoids. Pharmacy consulted for glycemic management. Blood sugar is maintained. UTI (present on admission) Urinalysis day of admission demonstrated leukocyte esterase, 10-30 WBCs, bacteria. Urine culture grew Citrobacter freundii, pansensitive. Initially treated with levofloxacin. Now receiving piperacillin/tazobactam as discussed above. ALTERED MENTAL STATUS Probable delirium / encephalopathy secondary to infections. Possible underlying dementia per clinic case management. Avoid medications with anticholinergic side effects- levofloxacin and ipratropium discontinued. VTE PROPHYLAXIS Continue warfarin. Ambulate. DISPOSITION Anticipate need for skilled care. Family Medicine follow-up with Dr. Waterman. PT/OT evaluation-will need placement Vital Signs: Date Time Temp Pulse Resp B/P (MAP) Pulse Ox O2 Delivery O2 Flow Rate FiO2 12/16/17 12:00 Nasal Cannula 2.0 12/16/17 11:38 36.6 69 20 170/92 (118) 99 Nasal Cannula 3.0 12/16/17 08:25 36.3 79 19 174/84 (114) 99 Nasal Cannula 3.0 12/16/17 08:00 Nasal Cannula 2.0 12/16/17 06:59 77 16 100 Nasal Cannula 3.0 12/16/17 04:00 Nasal Cannula 2.0 12/16/17 02:53 36.6 84 18 108/72 (84) 100 2.0 12/16/17 00:47 181/84 (116) 12/16/17 00:01 36.3 81 18 207/113 (144) 97 12/15/17 23:59 Nasal Cannula 2.0 12/15/17 20:00 Room Air 12/15/17 19:42 36.3 81 20 201/89 (126) 96 Nasal Cannula 2.0 12/15/17 19:10 72 20 98 Nasal Cannula 3.0 12/15/17 16:00 Room Air Lab Results: Results Past 24 Hours Test 12/15/17 16:45 12/15/17 20:16 12/16/17 06:07 12/16/17 06:38 Range/Units Bedside Glucose 203 207 119 70-90 mg/dl White Blood Count 5.40 4.8-10.8 K/uL Red Blood Count 4.24 4.2-5.4 M/uL Hemoglobin 12.6 12.0-16.0 g/dL Hematocrit 38.7 37-47 % Mean Corpuscular Volume 91.3 80-100 fL Mean Corpuscular Hemoglobin 29.7 25-34 pg Mean Corpuscular Hemoglobin Concent 32.6 32-36 g/dl RDW Standard Deviation 47.1 36.4-46.3 fL RDW Coefficient of Variation 14.2 11.5-14.5 % Platelet Count 123 130-400 K/uL Mean Platelet Volume 10.0 7.4-10.4 fL Sodium Level 141 136-145 mmol/L Potassium Level 4.1 3.5-5.1 mmol/L Chloride Level 105 98-107 mmol/L Carbon Dioxide Level 31 21-32 mmol/L Anion Gap 5.0 3-11 mmol/L Blood Urea Nitrogen 71 7-18 mg/dl Creatinine 2.06 0.60-1.20 mg/dl Est Creatinine Clear Calc Drug Dose 24.7 ml/min Estimated GFR () 25.9 Estimated GFR (Non- 22.3 BUN/Creatinine Ratio 34.3 10-20 Random Glucose 121 70-99 mg/dl Calcium Level 9.3 8.5-10.1 mg/dl Phosphorus Level 4.7 2.5-4.9 mg/dl Magnesium Level 2.6 1.8-2.4 mg/dl Test 12/16/17 10:49 Range/Units Bedside Glucose 239 70-90 mg/dl
[2017-12-16] MEDS: WARFARIN SOD 4 MG TAB PO SCH (16:51)
[2017-12-16] MEDS: LOVASTATIN 20 MG TAB PO SCH (20:33)
[2017-12-17 00:01] VITALS: BP 188/94; PULSE 79; TEMP 36.4; O2SAT 95
[2017-12-17 01:02] VITALS: BP 189/107
[2017-12-17] MEDS: LABETALOL HCL IV 5 MG/ML 20ML IV PRN (01:02)
[2017-12-17 04:29] VITALS: BP 189/122; PULSE 72; TEMP 36.3; O2SAT 99
[2017-12-17] MEDS: PIPERACILL/TAZOBAC IV 3.375 GM in SODIUM CHLORIDE 0.9% 100ML 100 ML IV SCH ×2 (05:59→14:50)
[2017-12-17] MEDS: BUDESONIDE 0.5 MG/2 ML VIAL (PULMICORT) INH SCH (07:04)
[2017-12-17] MEDS: METHYLPREDNISOLONE IV 40 MG in SYRINGE 0 ML IV SCH (07:40)
[2017-12-17] MEDS: POTASSIUM CHLORIDE 20 MEQ TABCR PO SCH ×2 (07:40→14:50)
[2017-12-17] MEDS: GUAIFENESIN 600 MG TABCR PO SCH (07:40)
[2017-12-17] MEDS: PANTOprazole SOD 40 MG TAB PO SCH (07:40)
[2017-12-17] MEDS: CALCITRIOL 0.25 MCG CAP PO SCH (07:40)
[2017-12-17] MEDS: ISOSORBIDE MONONITRATE 30 MG TABCR PO SCH (07:41)
[2017-12-17] MEDS: CHOLECALCIFEROL 1000 INTER.UNIT TAB PO SCH (07:41)
[2017-12-17] MEDS: ASPIRIN 81 MG ECTAB PO SCH (07:41)
[2017-12-17] MEDS: FERROUS SULFATE 325 MG TAB PO SCH (07:41)
[2017-12-17] MEDS: FUROSEMIDE 80 MG TAB PO SCH (07:42)
[2017-12-17] MEDS: CARVEDILOL 25 MG TAB PO SCH (07:43)
[2017-12-17] MEDS: INSULIN ASPART 100 UNITS/ML 3 ML PEN SC SCH ×2 (07:45→11:50)
[2017-12-17 07:56] LABS: INR 4.7 (0.9-1.1)
[2017-12-17 08:33] VITALS: BP 161/73; PULSE 83; TEMP 36.8; O2SAT 96
[2017-12-17] MEDS ORDERED: INSULIN GLARGINE SOLOSTAR 100 UNITS/ML 3 ML PEN SC SCH (09:00)
[2017-12-17 11:00] VITALS: BP 164/89; PULSE 84; TEMP 36.6; O2SAT 93
--- NOTE | 2017-12-17 11:42 | Progress Note ---
Internal Med Progress Note Date of Service: Dec 17, 2017. Provider Documentation: SUBJECTIVE: The patient was seen and examined in telemetry unit. She complains to have weakness and tiredness and nonproductive cough. Since that she has not improved much for the last 1 week. Does not have any chest pain, any abdominal pain, any nausea and/or vomiting. 12/16-complains of weakness with lack of motivation 12/17-Remains generally weak and lethargic ,did not participate in PT yesterday OBJECTIVE: Vital Signs-as noted below Exam: General-minimal distress at rest, generally very weak and lethargic feels sleepy Eyes-. Normal ENT-normal Neck-supple Lungs-decreased breath sounds especially at the bases with minimal crackles Heart-regular, no murmur Abdomen-distended, soft, bowel sounds present Extremities-1+ edema bilaterally Neuro-alert, awake and oriented 3 Generally weak but no focal sensory or motor deficit Lab data as noted below. ASSESSMENT & PLAN: Generalized Weakness and tiredness Ongoing issue Not participating in PT/OT as advised No apparent distress at rest Lacks motivation PNEUMONIA Fever, cough, shortness of breath at time of admission. Chest x-ray demonstrated infiltrate left base. Community-acquired pneumonia with underlying COPD. 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 Initially received levofloxacin without improvement. Chest x-ray 12/13 showed persistent infiltrate left base as well as development of right upper lobe infiltrate. Changed therapy to piperacillin/tazobactam.-will continue for now and finish the course No more symptoms EXACERBATION OF COPD Exacerbation secondary to pneumonia. Oxygen saturation as low as 87% in ED. Continue steroids-wean as tolerated. Continue nebulizer treatments Clinically stable CHRONIC HYPOXIC RESPIRATORY FAILURE Secondary to COPD. On home O2 at 4 L/min. Continue supplemental O2. CORONARY ARTERY DISEASE History of ischemic heart disease, status post PCI. No anginal symptoms. Continue aspirin, carvedilol, nitrates, statin. CHF Chronic diastolic left ventricular heart failure. Diuretics initially held because of metabolic alkalosis and elevated creatinine. Furosemide restarted -monitor PRP Repeat CXR today -no significant change compared with prior ATRIAL FIBRILLATION Rate controlled on carvedilol. Continue anticoagulation with warfarin. INR-therapeutic HYPERTENSION Continue carvedilol and nitrates. CHRONIC KIDNEY DISEASE STAGE IV Serum creatinine at time of admission 2.13. Nephrology consulted-appreciate Input . Diuretics being held. Creatinine today = 1.92>2/2. METABOLIC ALKALOSIS Total CO2 38 at time of admission. ABG on oxygen supplementation 12/10 demonstrated PO2 133, PCO2 48, bicarb 36, pH 7.50. Probable metabolic alkalosis secondary to diuretic therapy with respiratory acidosis. Titrate diuretics. DM TYPE 2 Random glucose at time of admission 208. Repeat blood sugar as high as 360. Blood sugars elevated secondary to acute illness and glucocorticoids. Pharmacy consulted for glycemic management. Blood sugar is maintained. UTI (present on admission) Urinalysis day of admission demonstrated leukocyte esterase, 10-30 WBCs, bacteria. Urine culture grew Citrobacter freundii, pansensitive. Initially treated with levofloxacin. Now receiving piperacillin/tazobactam as discussed above. ALTERED MENTAL STATUS Probable delirium / encephalopathy secondary to infections. Possible underlying dementia per clinic case management. Avoid medications with anticholinergic side effects- levofloxacin and ipratropium discontinued. VTE PROPHYLAXIS Continue warfarin. Ambulate. DISPOSITION Anticipate need for skilled care. Family Medicine follow-up with Dr. Waterman. PT/OT evaluation-will need placement Vital Signs: Date Time Temp Pulse Resp B/P (MAP) Pulse Ox O2 Delivery O2 Flow Rate FiO2 12/17/17 08:33 36.8 83 18 161/73 (102) 96 12/17/17 08:00 Nasal Cannula 2.0 12/17/17 04:29 36.3 72 18 189/122 (144) 99 12/17/17 04:00 Nasal Cannula 2.0 12/17/17 04:00 Nasal Cannula 2.0 12/17/17 01:02 189/107 (134) 12/17/17 00:01 Nasal Cannula 2.0 12/17/17 00:01 36.4 79 18 188/94 (125) 95 12/16/17 20:13 36.4 76 16 180/91 (120) 99 Nasal Cannula 2.0 12/16/17 20:00 Nasal Cannula 2.0 12/16/17 18:51 73 16 99 Nasal Cannula 3.0 12/16/17 16:54 36.5 79 18 196/88 (124) 96 Nasal Cannula 3.0 12/16/17 16:00 Nasal Cannula 2.0 12/16/17 12:00 Nasal Cannula 2.0 12/16/17 11:38 36.6 69 20 170/92 (118) 99 Nasal Cannula 3.0 Lab Results: Results Past 24 Hours Test 12/16/17 16:11 12/16/17 21:00 12/17/17 06:39 12/17/17 06:43 Range/Units Bedside Glucose 297 251 135 70-90 mg/dl Prothrombin Time 47.4 9.0-12.0 SECONDS Prothromb Time International Ratio 4.7 0.9-1.1 Test 12/17/17 11:11 Range/Units Bedside Glucose 273 70-90 mg/dl
--- NOTE | 2017-12-17 13:08 | Pharmacy Progress Note ---
Pharmacy Glycemic Short Note 2 Date of Service Dec 17, 2017. OUTPATIENT ANTIDIABETIC REGIMEN: * Novolog per sliding scale (up to 60 units/day as per [facility] records) * Lantus 25 units qday * A1c = 7.4 % 09/24/17 ASSESSMENT: 12/17 * Patient continues on solu-medrol 40 mg q12H * Fasting BSGs within range, will transition to once daily lantus * Pre-prandial BSGs elevated, will tighten carb coverage today 12/14/17: * Patient's AM Lantus dose was omitted this morning for BSG 77mg/dL. As a result, pre-lunch BSG significantly elevated (293mg/dL). * Will remove 0 dose option from Lantus entry * BSGs have been looking relatively good otherwise. Will continue to adjust regimen as needed as steroids change. 12/13/17 * BSGs improved over the past 24 hours, however, prednisone was changed to solu- medrol 40 mg IV every 12 hours starting this morning. I anticipate increased needs while on solu-medrol. During a recent admission, Magui was well controlled on 25-29 units SQ BID of Lantus while on same dose of IV steroids. I am hesitant to increase basal that significantly due to BSGs on the low side so far today; 74 and 112 mg/dL * Tighten CF/CR to 10/3 based on previous BSG data PLAN FOR INPATIENT GLYCEMIC CONTROL: * Basal insulin: * Lantus 27 units QAM * Bolus Insulin: * NOVOLOG per scale ACHS or Q6hrs while NPO * Goal Range: Low 110 mg/dL - High 150 mg/dL * Correction Factor: 10 mg/dL/unit * Nutritional / Prandial insulin per carb ratio of 1 unit per 2.5 grams CHO consumed DISCHARGE RECOMMENDATIONS: * Most recent A1c indicates good outpatient control for a 77yo patient w/ multiple comorbidities. * It is likely reasonable to continue outpatient regimen after discharge, as long as patient is not experiencing hypoglycemic episodes at home. * If patient will be discharge on steroids, may require additional glycemic coverage on discharge. Recommend close f/u with PCP.
[2017-12-17] MEDS ORDERED: PRED10TA PO (14:57)
--- NOTE | 2017-12-17 15:03 | Discharge Instructions ---
Discharge Instructions Date of Service Dec 17, 2017. Admission Reason for Admission: Acute Respiratory Failure With Hypoxia Discharge Discharge Diagnosis / Problem: COPD,PLneumonia,CKD,Resp failure ,CAD Discharge Goals Goal(s): Prevent Disease Progression Activity Recommendations Activity Level: Assistance Required Therapies: Physical Therapy, Occupational Therapy . Additional Information Patient informed of condition: Yes Advance Directives: No DNR: No Level of Care: Skilled Communicable Disease: No Prognosis: Stable Oxygen at (LPM): 2 to 4 liters/min via NC as directed Gaines Catheter: No (May need Gaines ) Instructions / Follow-Up Instructions / Follow-Up Please make an appointment with your PCP in 1 week following discharge from the facility.Please check INR tomorrow before giving any Coumadin. Current Hospital Diet Patient's current hospital diet: Low Sodium Diet (2gm Na), AHA Diet (Heart Healthy), Diabetes Type 2 Diet Discharge Diet Recommended Diet: AHA Diet (Heart Healthy), Low Sodium Diet (2gm Na), Diabetes Type 2 Diet Fluid Restriction: 1500 ml (6 cups) Pending Studies Studies pending at discharge: no Laboratory Results Hemoglobin A1c Test 12/12/17 07:03 Range/Units Estimated Average Glucose 171 mg/dl Hemoglobin A1c 7.6 H 4.5-5.6 % Lipid Panel Test 09/24/17 04:46 Range/Units Triglycerides Level 67 0-150 mg/dl Cholesterol Level 160 0-200 mg/dl HDL Cholesterol 64 mg/dl Cholesterol/HDL Ratio 2.5 LDL Cholesterol, Calculated 83 mg/dl Medical Emergencies . Who to Call and When: Medical Emergencies: If at any time you feel your situation is an emergency, please call 911 immediately. . Non-Emergent Contact Non-Emergency issues call your: Primary Care Provider . Past History Medical & Surgical History: (1) Pneumonia (2) Diabetes mellitus, type II (3) Hypertension (4) Pulmonary embolism (5) CKD (chronic kidney disease), stage IV (6) COPD (chronic obstructive pulmonary disease) (7) Atrial fibrillation (8) Diastolic CHF (9) History of GI bleed (10) Chronic anticoagulation (11) History of appendectomy (12) History of coronary artery disease (13) History of total left hip arthroplasty (14) H/O heart artery stent (15) Hx of removal of ovary . "Provider Documentation" section prepared by Jan Pacheco. . Core Measure Problem Core Measures: None
[2017-12-17 15:35] VITALS: BP 166/81; PULSE 83; TEMP 36.4; O2SAT 94
[2017-12-17] MEDS: WARFARIN SOD 4 MG TAB PO SCH (15:37)
--- NOTE | 2017-12-17 17:29 | Discharge Summary ---
Discharge Summary Date of Service Dec 17, 2017. Discharge Summary Admission Date: Dec 10, 2017 at 13:00 Discharge Date: Dec 17, 2017 Principal Diagnosis: COPD,Pneumonia,CKD,Resp failure ,CAD Secondary Diagnoses/Problems: Please see H&P and Hospital progress note Consultations: Nephrology Medication Reconciliation New Medications: Prednisone Tab (Prednisone) 10 Mg Tab 10 MG PO UD for 12 Days, #30 TAB Continued Medications: Aspirin (Aspirin Low Strength) 81 Mg Chew 1 TAB OR DAILY for 30 Days, #30 TAB Budesonide (Inhalation) (Pulmicort Respules 0.5MG/2ML) 0.5 Mg/2 Ml Akilah 0.5 MG NEB BID, #120 Calcitriol (Calcitriol) 0.25 Mcg Cap 0.5 MCG PO DAILY, CAP Carvedilol (Coreg) 25 Mg Tab 1 TAB PO BID for 90 Days, #180 TAB 1 Refill Ferrous Sulfate (Ferrous Sulfate) 325 Mg Tab 325 MG PO DAILY Furosemide (Lasix) 40 Mg Tab 80 MG PO BID, TAB Glucose-Vitamin C (Glucose) 1 Chw Chw 1 TAB PO UD PRN for LOW SUGAR Home O2 Therapy (Oxygen) Gas 3 LITERS NA HS, BTL Insulin Aspart (Novolog) 100 Units/Ml Inj ACHS SLIDING SCALE Insulin Glargine (Lantus Solostar) 100 Unit/Ml Inj 25 UNITS SQ DAILY for 30 Days, #5 ML Ipratropium [place] (Ipratropium [place]) 0.5 Mg/2.5 Ml Nebu 1 VIAL NEB QID PRN for SOB/Wheezing for 30 Days, #300 ML 5 Refills Isosorbide Mononitrate (Isosorbide Mononitrate ER) 30 Mg Tabcr 30 MG PO DAILY for 30 Days, #30 Levalbuterol Hcl (Levalbuterol Hcl) 1.25 Mg/3 Ml Neb 3 ML INH Q4 PRN for SOB/Wheezing Lovastatin (Mevacor) 40 Mg Tab 80 MG PO HS Nitroglycerin (Nitrostat) 0.4 Mg Sub 0.4 MG UT PRN PRN for Chest Pain, BTL Omeprazole (Omeprazole) 20 Mg Tab 20 MG PO DAILY Potassium Chloride (Klor-Con M20) 20 Meq Tabcr 20 MEQ PO TID, TAB Solifenacin (Vesicare) 5 Mg Tab 5 MG PO DAILY, TAB Warfarin Sod (Coumadin) 4 Mg Tab 4 MG PO ThSu for 12 Days, #12 TAB take as prescribed Warfarin Sod (Coumadin) 2 Mg Tab 2 MG PO MoTuWeFrSa for 16 Days, #16 TAB take as prescribed Discontinued Medications: Metolazone (Zaroxolyn) 2.5 Mg Tab 2.5 MG PO WK, TAB Admission Information HPI (per Admitting provider): 77-year-old female who presents the ED with shortness of breath and generalized weakness. Patient does live home alone. History is somewhat limited from her in some information is obtained from the daughter. She reports that around 1130 last night she fell while trying to get to the bathroom. She says that her legs just gave out from under her whenever she fell. She denies any associated loss of consciousness, chest pain, or palpitations. She reports that she keeps a telephone on the floor in the event she falls. She called her daughter who came to help her back into bed. Patient reports she did get up later time throughout the night and walk to the bathroom. She reports she felt extremely short of breath. She has had increasing cough and shortness of breath for the past couple of weeks. Patient reports cough is nonproductive. She wears oxygen at nighttime. No lightheadedness, dizziness, diaphoresis, or syncopal events. She denies abdominal pain, nausea, vomiting, and diarrhea. No fevers or chills. She denies any urinary symptoms. Patient reports her daughter manages her pillbox for her. She is mostly unaware of what medication she takes. As per review outpatient records, patient was evaluated by cardiology 3 weeks ago and had her Lasix and carvedilol increased, started on metolazone, and amlodipine was discontinued. In the ED, patient was 87% on room air she was then placed on BiPAP. During my exam, patient was transitioned to 2 L nasal cannula and is saturating well. Chest x-ray shows a left basilar consolidation suggestive of pneumonia. Per ER provider's evaluation, he felt that the patient was volume overloaded so she was given 40 mg IV Lasix. She has a low-grade fever at 38.0, no leukocytosis, heart rate and blood pressure is stable. She was also found to be hypokalemic and potassium was replaced. She was also given a nebulizer treatment, IV Zosyn, and IV Levaquin. Past Medical/Surgical History Medical Problems: (1) Asthma Status: Chronic (2) Atrial fibrillation Status: Chronic (3) C. difficile colitis Status: Resolved (4) Chronic anticoagulation Status: Chronic (5) CKD (chronic kidney disease), stage IV Status: Chronic (6) COPD (chronic obstructive pulmonary disease) Status: Chronic (7) CVA (cerebral vascular accident) Status: Chronic (8) Diabetes mellitus, type II Status: Chronic (9) Diabetic neuropathy Status: Chronic (10) Diabetic peripheral neuropathy associated with type 2 diabetes mellitus Status: Chronic (11) Diastolic CHF Permanent Comment: Echo 07/2017-moderate LVH, EF 65-70%, grade 1 diastolic dysfunction, trace mitral regurgitation, mild tricuspid regurgitation Status: Chronic (12) Gastroparesis Status: Chronic (13) GERD (gastroesophageal reflux disease) Status: Chronic (14) History of coronary artery disease Status: Chronic (15) History of GI bleed Status: Chronic (16) Hyperlipidemia Status: Chronic (17) Hypertension Status: Chronic (18) Migraine Status: Chronic (19) Pulmonary embolism Status: Chronic (20) Sleep apnea Status: Chronic Surgical Problems: (1) H/O heart artery stent Permanent Comment: [facility] [place] (AVE Stent). Repeat catheterization August 2014 demonstrated stable moderate LAD stenosis. Status: Resolved (2) History of appendectomy Status: Resolved (3) History of total left hip arthroplasty Status: Resolved (4) Hx of removal of ovary Permanent Comment: R side Status: Resolved Family History Noncontributory secondary to patient's advanced age Social History Smoking Status: Former Smoker Alcohol Use: none Housing status: lives alone Immunizations History of Influenza Vaccine: Yes Influenza Vaccine Date: May 18, 2017 History of Tetanus Vaccine?: Yes Tetanus Immunization Date: Feb 20, 2012 History of Pneumococcal: Yes Pneumococcal Date: Aug 03, 2014 Allergies Coded Allergies: Codeine (Verified Allergy, Unknown, UNKNOWN, 12/10/17) INFO FROM PT Aspirin (Verified Adverse Reaction, Intermediate, (ULCER), 12/10/17) Venlafaxine (Verified Adverse Reaction, Intermediate, DROWINESS/ CONFUSION , 12/10/17) Cephalexin (Verified Adverse Reaction, Mild, DROWSINESS, UNABLE TO DRIVE, UPSET STOMACH, 12/10/17) Oxycodone (Verified Adverse Reaction, Mild, n/v, 12/10/17) gmg Home Medications Scheduled Aspirin (Aspirin Low Strength), 1 TAB OR DAILY Budesonide (Inhalation) (Pulmicort Respules 0.5MG/2ML), 1 VIAL NEB BID Calcitriol (Calcitriol), 0.5 MCG PO DAILY Carvedilol (Coreg), 1 TAB PO BID Ferrous Sulfate (Ferrous Sulfate), 325 MG PO DAILY Furosemide (Lasix), 80 MG PO BID Home O2 Therapy (Oxygen), 3 LITERS NA HS Insulin Aspart (Novolog), ACHS Insulin Glargine (Lantus Solostar), 25 UNITS SQ DAILY Isosorbide Mononitrate (Isosorbide Mononitrate ER), 30 MG PO DAILY Lovastatin (Mevacor), 80 MG PO HS Metolazone (Zaroxolyn), 2.5 MG PO WK Omeprazole (Omeprazole), 20 MG PO DAILY Potassium Chloride (Klor-Con M20), 20 MEQ PO BID Solifenacin (Vesicare), 5 MG PO DAILY Warfarin Sod (Coumadin), 4 MG PO ThSu Warfarin Sod (Coumadin), 2 MG PO MoTuWeFrSa Scheduled PRN Glucose-Vitamin C (Glucose), 1 TAB PO UD PRN for LOW SUGAR Ipratropium [place] (Ipratropium [place]), 1 VIAL NEB QID PRN for SOB/Wheezing Levalbuterol Hcl (Levalbuterol Hcl), 3 ML INH Q4 PRN for SOB/Wheezing Nitroglycerin (Nitrostat), 0.4 MG UT PRN PRN for Chest Pain Review of Systems ROS per HPI, all other systems reviewed and negative Physical Exam Vital Signs Date Time Temp Pulse Resp B/P (MAP) Pulse Ox O2 Delivery O2 Flow Rate FiO2 12/10/17 13:35 83 22 195/89 95 12/10/17 12:46 86 18 184/68 97 Nasal Cannula 3.0 12/10/17 11:52 84 95 35 12/10/17 11:51 84 30 95 BiPAP/CPAP 35 12/10/17 11:41 BiPAP 12/10/17 11:09 38.0 94 28 163/80 87 Room Air 12/10/17 11:09 87 Room Air 12/10/17 11:07 87 Room Air 12/10/17 11:07 90 General Appearance: WD/WN, no apparent distress Head: normocephalic, atraumatic Eyes: normal inspection, EOMI, sclerae normal ENT: hearing grossly normal, + pertinent finding (Mucous membranes dry) Neck: supple, no JVD, trachea midline Respiratory/Chest: no respiratory distress, + decreased breath sounds, + crackles (Left base), + rhonchi (Faint noted in anterior lung cole) Cardiovascular: normal peripheral pulses, + irregularly irregular (Rate controlled), + pertinent finding (Trace edema BL LE) Abdomen/GI: normal bowel sounds, non tender, soft, no organomegaly Genitourinary - Female: + pertinent finding (Gaines in place draining clear yellow urine) Extremities/Musculoskelatal: normal inspection, no calf tenderness, normal capillary refill Neurologic/Psych: no motor/sensory deficits, alert, oriented x 3, + pertinent finding (Poor insight, forgetful) Skin: + pertinent finding (Dry, flaky skin to BLLE; small wound/bruising noted to the head of the first metatarsal, no surrounding erythema or drainage noted) Diagnostics Laboratory Results Results Past 24 Hours Test 12/10/17 11:33 12/10/17 11:37 12/10/17 11:38 12/10/17 12:00 Range/Units White Blood Count 6.77 4.8-10.8 K/uL Red Blood Count 3.95 4.2-5.4 M/uL Hemoglobin 12.1 12.0-16.0 g/dL Hematocrit 36.1 37-47 % Mean Corpuscular Volume 91.4 80-100 fL Mean Corpuscular Hemoglobin 30.6 25-34 pg Mean Corpuscular Hemoglobin Concent 33.5 32-36 g/dl Platelet Count 116 130-400 K/uL Mean Platelet Volume 10.4 7.4-10.4 fL Neutrophils (%) (Auto) 83.6 % Lymphocytes (%) (Auto) 9.7 % Monocytes (%) (Auto) 6.4 % Eosinophils (%) (Auto) 0.0 % Basophils (%) (Auto) 0.0 % Neutrophils # (Auto) 5.66 1.4-6.5 K/uL Lymphocytes # (Auto) 0.66 1.2-3.4 K/uL Monocytes # (Auto) 0.43 0.11-0.59 K/uL Eosinophils # (Auto) 0.00 0-0.5 K/uL Basophils # (Auto) 0.00 0-0.2 K/uL RDW Standard Deviation 47.0 36.4-46.3 fL RDW Coefficient of Variation 14.2 11.5-14.5 % Immature Granulocyte % (Auto) 0.3 % Immature Granulocyte # (Auto) 0.02 0.00-0.02 K/uL Prothrombin Time 24.2 9.0-12.0 SECONDS Prothromb Time International Ratio 2.3 0.9-1.1 Sodium Level 131 136-145 mmol/L Potassium Level 2.9 3.5-5.1 mmol/L Chloride Level 85 98-107 mmol/L Carbon Dioxide Level 38 21-32 mmol/L Anion Gap 8.0 3-11 mmol/L Blood Urea Nitrogen 46 7-18 mg/dl Creatinine 2.13 0.60-1.20 mg/dl Est Creatinine Clear Calc Drug Dose 26.0 ml/min Estimated GFR () 24.9 Estimated GFR (Non- 21.5 BUN/Creatinine Ratio 21.6 10-20 Random Glucose 208 70-99 mg/dl Calcium Level 9.4 8.5-10.1 mg/dl Total Bilirubin 1.3 0.2-1 mg/dl Aspartate Amino Transf (AST/SGOT) 22 15-37 U/L Alanine Aminotransferase (ALT/SGPT) 16 12-78 U/L Alkaline Phosphatase 99 45-117 U/L Total Creatine Kinase 43 26-192 U/L Creatine Kinase MB < 0.5 0.5-3.6 ng/ml Creatine Kinase MB Ratio 0-3.0 Troponin I < 0.015 0-0.045 ng/ml Total Protein 6.8 6.4-8.2 gm/dl Albumin 3.0 3.4-5.0 gm/dl Globulin 3.8 2.5-4.0 gm/dl Albumin/Globulin Ratio 0.8 0.9-2 Chemistry Specimen Hemolysis Bedside Lactic Acid Venous 1.60 0.90-1.70 mmol/L Influenza Type A Antigen Neg for Influ A NEG Influenza Type B Antigen Neg for Influ B NEG Urine Color YELLOW Urine Appearance CLOUDY CLEAR Urine pH 5.0 4.5-7.5 Urine Specific Bowen 1.012 1.000-1.030 Urine Protein TRACE NEG Urine Glucose (UA) NEG NEG Urine Ketones NEG NEG Urine Occult Blood 1+ NEG Urine Nitrite NEG NEG Urine Bilirubin NEG NEG Urine Urobilinogen NEG NEG Urine Leukocyte Esterase SMALL NEG Urine WBC (Auto) 10-30 0-5 /hpf Urine RBC (Auto) 0-4 0-4 /hpf Urine Hyaline Casts (Auto) 1-5 0-5 /lpf Urine Epithelial Cells (Auto) 0-5 0-5 /lpf Urine Bacteria (Auto) 3+ NEG Test 12/10/17 12:43 12/10/17 13:06 Range/Units Arterial Blood pH 7.50 7.35-7.45 Arterial Blood Partial Pressure CO2 48 35-46 mmHg Arterial Blood Partial Pressure O2 133 80-95 mm/Hg Arterial Blood HCO3 36 19-24 mmol/L Arterial Blood Oxygen Saturation 98.9 90-95 % Arterial Blood Base Excess 11.6 -9-1.8 mEq/L Arterial Blood Gas Delivery FIO2 35% Jonathan Test POS POS Microbiology Results 12/10/17 Blood Culture, Received Pending 12/10/17 Blood Culture, Received Pending 12/10/17 Urine Culture, Received Pending Diagnostic Radiology CXR IMPRESSION: 1. Interval development of left basilar consolidation, which raises concern for pneumonia. Trace left pleural effusion may also be present. Asymmetric pulmonary edema is considered less likely, which would be unexpected to exhibit this degree of density. 2. Cardiomegaly with mild volume overload. Impression Assessment and Plan Acute on chronic hypoxic respiratory failure Community-acquired pneumonia COPD exacerbation -Admit to telemetry -Patient presenting with increasing shortness of breath and cough, also had a mechanical fall last evening -On presentation saturating 87% on room air and was placed on BiPAP, during my exam patient was transitioned to 2 L nasal cannula and is saturating well ( chronically wears 4 L of oxygen at night) -Chest x-ray in the ED shows a left basilar consolidation consistent with pneumonia -On presentation, low-grade fever at 38.0, no leukocytosis, heart rate and blood pressure stable, lactic acid is normal -Do not suspect sepsis -S/P Zosyn and Levaquin in the ED; will continue with Levaquin only for now -Blood and sputum cultures -Will start prednisone 40 mg p.o. 5 days, [id number] nebulizer treatments , continue home inhaled corticosteroid Metabolic alkalosis -ABG shows a metabolic alkalosis with appropriate respiratory compensation -Noted that diuretics were recently increased as an outpatient -Metabolic alkalosis possibly from overdiuresis -Will hold further diuresis for now, follow ABG Hypokalemia -Likely diuretic induced -Replace, follow potassium levels -Check magnesium Chronic diastolic CHF -As an outpatient, patient's Lasix was recently increased to 80 mg twice daily ( up from 80 mg in the morning and 40 mg in the evening), was restarted on metolazone weekly, amlodipine was discontinued, and Coreg was increased to 25 mg twice daily (up from 12.5 mg twice daily) -Patient's volume status has been difficult to control in the past due to renal dysfunction and dizziness -Holding diuresis as above for now History of CAD -Appears stable, no reports of chest pain -Continue aspirin, statin, nitrate, and beta-joe Atrial fibrillation -Rate controlled on carvedilol, will continue -Anticoagulated on Coumadin, INR is 2.3 Diabetes -Hgb A1c 7.7 08/2017 -Continue Lantus and NovoLog per protocol DVT prophylaxis -Anticoagulated on Coumadin CODE STATUS -Patient is a full code as per discussion with her. Disposition -In my clinical judgment this beneficiary meets acute admission criteria, established by [facility], that includes being hospitalized through two midnights. -PT/OT consults, case management; patient currently lives home alone and may need higher level of care at discharge Attending addendum: The patient was seen and examined in telemetry unit. She was admitted with increasing shortness of breath and also generalized weakness. Feeling a little better following admission and denies any chest pain palpitation, No abdominal pain nausea and/or vomiting. 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 Dr. Diya Pacheco Resuscitation Status VTE Prophylaxis Will order VTE Prophylaxis: Yes <Electronically signed by Maria T ALEXANDER> <Electronically signed by Jan Pacheco M.D.> Signed: 12/10/17 9509 Signed: 12/10/17 [id number] Physical Exam (per Admitting): General Appearance: WD/WN, no apparent distress Head: normocephalic, atraumatic Eyes: normal inspection, EOMI, sclerae normal ENT: hearing grossly normal, + pertinent finding (Mucous membranes dry) Neck: supple, no JVD, trachea midline Respiratory/Chest: no respiratory distress, + decreased breath sounds, + crackles, + rhonchi Cardiovascular: normal peripheral pulses, + irregularly irregular (Rate controlled), + pertinent finding (Trace edema BL LE) Abdomen/GI: normal bowel sounds, non tender, soft, no organomegaly Genitourinary - Female: + pertinent finding (Gaines in place draining clear yellow urine) Extremities/Musculoskelatal: normal inspection, no calf tenderness, normal capillary refill Neurologic/Psych: no motor/sensory deficits, alert, oriented x 3, + pertinent finding (Poor insight, forgetful) Skin: + pertinent finding (Dry, flaky skin to BLLE; small wound/bruising noted to the head of the first metatarsal, no surrounding erythema or drainage noted) Hospital Course Generalized Weakness and tiredness Ongoing issue Not participating in PT/OT as advised No apparent distress at rest Lacks motivation PNEUMONIA Fever, cough, shortness of breath at time of admission. Chest x-ray demonstrated infiltrate left base. Community-acquired pneumonia with underlying COPD. Sputum culture growing moderate normal eligio and Blood Culture-negative BLOCK CLEANER swab for influenza A/B Ag negative; check PCR-negative MRSA nasal screen negative, so MRSA pneumonia unlikely. Initially received levofloxacin without improvement. Chest x-ray 12/13 showed persistent infiltrate left base as well as development of right upper lobe infiltrate. Changed therapy to piperacillin/tazobactam.-will continue for now and finish the course No more symptoms EXACERBATION OF COPD Exacerbation secondary to pneumonia. Oxygen saturation as low as 87% in ED. Continue steroids-wean as tolerated. Continue nebulizer treatments Clinically stable CHRONIC HYPOXIC RESPIRATORY FAILURE Secondary to COPD. On home O2 at 4 L/min. Continue supplemental O2. CORONARY ARTERY DISEASE History of ischemic heart disease, status post PCI. No anginal symptoms. Continue aspirin, carvedilol, nitrates, statin. CHF Chronic diastolic left ventricular heart failure. Diuretics initially held because of metabolic alkalosis and elevated creatinine. Furosemide restarted -monitor PRP Repeat CXR today -no significant change compared with prior ATRIAL FIBRILLATION Rate controlled on carvedilol. Continue anticoagulation with warfarin. INR-therapeutic HYPERTENSION Continue carvedilol and nitrates. CHRONIC KIDNEY DISEASE STAGE IV Serum creatinine at time of admission 2.13. Nephrology consulted-appreciate Input . Diuretics being held. Creatinine today = 1.92>2/2. METABOLIC ALKALOSIS Total CO2 38 at time of admission. ABG on oxygen supplementation 12/10 demonstrated PO2 133, PCO2 48, bicarb 36, pH 7.50. Probable metabolic alkalosis secondary to diuretic therapy with respiratory acidosis. Titrate diuretics. DM TYPE 2 Random glucose at time of admission 208. Repeat blood sugar as high as 360. Blood sugars elevated secondary to acute illness and glucocorticoids. Pharmacy consulted for glycemic management. Blood sugar is maintained. UTI (present on admission) Urinalysis day of admission demonstrated leukocyte esterase, 10-30 WBCs, bacteria. Urine culture grew Citrobacter freundii, pansensitive. Initially treated with levofloxacin. Now receiving piperacillin/tazobactam as discussed above. ALTERED MENTAL STATUS Probable delirium / encephalopathy secondary to infections. Possible underlying dementia per clinic case management. Avoid medications with anticholinergic side effects- levofloxacin and ipratropium discontinued. VTE PROPHYLAXIS Continue warfarin. Ambulate. DISPOSITION Anticipate need for skilled care. Family Medicine follow-up with Dr. Waterman. PT/OT evaluation-will need placement Total time spent on discharge = 35 minutes This includes examination of the patient, discharge planning, medication reconciliation, and communication with other providers. Discharge Instructions Date of Service Dec 17, 2017. Admission Reason for Admission: Acute Respiratory Failure With Hypoxia Discharge Discharge Diagnosis / Problem: COPD,PLneumonia,CKD,Resp failure ,CAD Discharge Goals Goal(s): Prevent Disease Progression Activity Recommendations Activity Level: Assistance Required Therapies: Physical Therapy, Occupational Therapy . Additional Information Patient informed of condition: Yes Advance Directives: No DNR: No Level of Care: Skilled Communicable Disease: No Prognosis: Stable Oxygen at (LPM): 2 to 4 liters/min via NC as directed Gaines Catheter: No (May need Gaines ) Instructions / Follow-Up Instructions / Follow-Up Please make an appointment with your PCP in 1 week following discharge from the facility.Please check INR tomorrow before giving any Coumadin. Current Hospital Diet Patient's current hospital diet: Low Sodium Diet (2gm Na), AHA Diet (Heart Healthy), Diabetes Type 2 Diet Discharge Diet Recommended Diet: AHA Diet (Heart Healthy), Low Sodium Diet (2gm Na), Diabetes Type 2 Diet Fluid Restriction: 1500 ml (6 cups) Pending Studies Studies pending at discharge: no Laboratory Results Hemoglobin A1c Test 12/12/17 07:03 Range/Units Estimated Average Glucose 171 mg/dl Hemoglobin A1c 7.6 H 4.5-5.6 % Lipid Panel Test 09/24/17 04:46 Range/Units Triglycerides Level 67 0-150 mg/dl Cholesterol Level 160 0-200 mg/dl HDL Cholesterol 64 mg/dl Cholesterol/HDL Ratio 2.5 LDL Cholesterol, Calculated 83 mg/dl Medical Emergencies . Who to Call and When: Medical Emergencies: If at any time you feel your situation is an emergency, please call 911 immediately. . Non-Emergent Contact Non-Emergency issues call your: Primary Care Provider . Past History Medical & Surgical History: (1) Pneumonia (2) Diabetes mellitus, type II (3) Hypertension (4) Pulmonary embolism (5) CKD (chronic kidney disease), stage IV (6) COPD (chronic obstructive pulmonary disease) (7) Atrial fibrillation (8) Diastolic CHF (9) History of GI bleed (10) Chronic anticoagulation (11) History of appendectomy (12) History of coronary artery disease (13) History of total left hip arthroplasty (14) H/O heart artery stent (15) Hx of removal of ovary . "Provider Documentation" section prepared by Jan Pacheco. . Core Measure Problem Core Measures: None <Electronically signed by Jan Pacheco M.D.> Signed: 12/17/17 1191 Additional Copies To Kerry Waterman D.O.
== END 2017-12-17 16:13 | DRG 193 ==
LOC: EDBD 10:56 → C.EDC 10:59 → C.2T 13:00 → ENRESERV 13:14 → C.MS2W 12-13 11:50 → C.2T 12-13 11:52
PROVIDERS: ADMIT Internal Medicine; ATTEND Internal Medicine
DX: J18.9 Pneumonia, unspecified organism (principal); J96.21 Acute and chronic respiratory failure with hypoxia; G93.40 Encephalopathy, unspecified; J44.1 Chronic obstructive pulmonary disease with (acute) exacerbation; J44.0 Chronic obstructive pulmonary disease with (acute) lower respiratory infection; I50.32 Chronic diastolic (congestive) heart failure; E87.4 Mixed disorder of acid-base balance; I13.0 Hypertensive heart and chronic kidney disease with heart failure and stage 1 through stage 4 chronic kidney disease, or unspecified chronic kidney disease; N18.4 Chronic kidney disease, stage 4 (severe); N39.0 Urinary tract infection, site not specified; B96.89 Other specified bacterial agents as the cause of diseases classified elsewhere; E87.6 Hypokalemia; T50.2X5A Adverse effect of carbonic-anhydrase inhibitors, benzothiadiazides and other diuretics, initial encounter; R53.1 Weakness; I48.91 Unspecified atrial fibrillation; I25.10 Atherosclerotic heart disease of native coronary artery without angina pectoris; E11.22 Type 2 diabetes mellitus with diabetic chronic kidney disease; N25.0 Renal osteodystrophy; E11.65 Type 2 diabetes mellitus with hyperglycemia; E11.42 Type 2 diabetes mellitus with diabetic polyneuropathy; E11.43 Type 2 diabetes mellitus with diabetic autonomic (poly)neuropathy; K31.84 Gastroparesis; E78.5 Hyperlipidemia, unspecified; G47.30 Sleep apnea, unspecified; F03.90 Unspecified dementia, unspecified severity, without behavioral disturbance, psychotic disturbance, mood disturbance, and anxiety; I25.2 Old myocardial infarction; Z91.81 History of falling; Z99.81 Dependence on supplemental oxygen; Z95.5 Presence of coronary angioplasty implant and graft; Z96.642 Presence of left artificial hip joint; Z86.73 Personal history of transient ischemic attack (TIA), and cerebral infarction without residual deficits; Z87.891 Personal history of nicotine dependence; Z79.01 Long term (current) use of anticoagulants; Z79.4 Long term (current) use of insulin; Z79.51 Long term (current) use of inhaled steroids; Z79.82 Long term (current) use of aspirin; Z79.899 Other long term (current) drug therapy; Z88.1 Allergy status to other antibiotic agents; Z88.5 Allergy status to narcotic agent; Z88.6 Allergy status to analgesic agent; Z88.8 Allergy status to other drugs, medicaments and biological substances

== ENCOUNTER → 2017-12-18 | Outpatient (CLI) | payer OTHER ==
[~2017-12-18] MED LIST changes: +ATRINS NEB; -DILT-202 PO; -FURO80TA63 PO; -METO2.5T PO; +PRED10TA PO; -UTIBRON INH
[2017-12-18 08:35] LABS: HEMATOCRIT 34.7 % (37-47); HEMOGLOBIN 11.2 g/dL (12.0-16.0); IG# 0.06 K/uL (0.00-0.02); LYMPH % 24.1 %; MEAN CELL VOLUME 90.8 fL (80-100); MEAN CORPUSCULAR HEMOGLOBIN 29.3 pg (25-34); MEAN CORPUSCULAR HGB CONC 32.3 g/dl (32-36); MEAN PLATELET VOLUME 10.9 fL (7.4-10.4); MONO % 9.8 %; MONO ABS # 0.45 K/uL (0.11-0.59); NEUT % 64.8 %; NEUT ABS # 2.96 K/uL (1.4-6.5); PLATELET COUNT 118 K/uL (130-400); RED CELL DISTRIBUTION WIDTH CV 14.2 % (11.5-14.5); RED CELL DISTRIBUTION WIDTH SD 46.9 fL (36.4-46.3); WHITE BLOOD COUNT 4.57 K/uL (4.8-10.8)
[2017-12-18 08:43] LABS: ALBUMIN 2.5 gm/dl (3.4-5.0); AST/SGOT 15 U/L (15-37); BLOOD UREA NITROGEN 75 mg/dl (7-18); CALCIUM 9.3 mg/dl (8.5-10.1); CARBON DIOXIDE 33 mmol/L (21-32); CREATININE 2.06 mg/dl (0.60-1.20); GLUCOSE 159 mg/dl (70-99); POTASSIUM 3.7 mmol/L (3.5-5.1); SODIUM 139 mmol/L (136-145)
[2017-12-18 08:48] LABS: ALKALINE PHOSPHATASE 53 U/L (45-117); ALT/SGPT 16 U/L (12-78); TOTAL PROTEIN 5.5 gm/dl (6.4-8.2)
== END | disposition home or self-care (01) ==
LOC: C.LABUPNIT 08:22
PROVIDERS: ATTEND Nurse Practitioner Family
DX: N18.4 Chronic kidney disease, stage 4 (severe) (principal); I50.30 Unspecified diastolic (congestive) heart failure

== ENCOUNTER → 2017-12-21 | Outpatient (CLI) | payer OTHER ==
[2017-12-21 09:33] LABS: INR 1.5 (0.9-1.1)
[2017-12-21 09:34] LABS: BLOOD UREA NITROGEN 56 mg/dl (7-18); CALCIUM 8.9 mg/dl (8.5-10.1); CARBON DIOXIDE 34 mmol/L (21-32); CREATININE 1.62 mg/dl (0.60-1.20); GLUCOSE 144 mg/dl (70-99); POTASSIUM 3.6 mmol/L (3.5-5.1); SODIUM 139 mmol/L (136-145)
== END ==
LOC: C.LABUPNIT 08:30
PROVIDERS: ATTEND Nurse Practitioner Family
DX: I48.2 Chronic atrial fibrillation (principal); N18.4 Chronic kidney disease, stage 4 (severe)

== ENCOUNTER → 2017-12-24 | Outpatient (CLI) | payer OTHER ==
[2017-12-24 10:14] LABS: BLOOD UREA NITROGEN 71 mg/dl (7-18); CALCIUM 9.5 mg/dl (8.5-10.1); CARBON DIOXIDE 34 mmol/L (21-32); CREATININE 1.72 mg/dl (0.60-1.20); GLUCOSE 117 mg/dl (70-99); POTASSIUM 3.7 mmol/L (3.5-5.1); SODIUM 139 mmol/L (136-145)
== END ==
LOC: C.LABUPNIT 09:17
PROVIDERS: ATTEND Nurse Practitioner Family
DX: N18.4 Chronic kidney disease, stage 4 (severe) (principal)

== ENCOUNTER → 2017-12-26 | Outpatient (CLI) | payer OTHER | LOC: C.LABUPNIT 09:23 | PROVIDERS: ATTEND Nurse Practitioner Family | DX: E11.40 Type 2 diabetes mellitus with diabetic neuropathy, unspecified (principal) ==

== ENCOUNTER → 2017-12-29 | Outpatient (CLI) | payer OTHER ==
[2017-12-29 08:44] LABS: HEMATOCRIT 31.4 % (37-47); HEMOGLOBIN 10.1 g/dL (12.0-16.0); MEAN CELL VOLUME 92.1 fL (80-100); MEAN CORPUSCULAR HEMOGLOBIN 29.6 pg (25-34); MEAN CORPUSCULAR HGB CONC 32.2 g/dl (32-36); RED CELL DISTRIBUTION WIDTH CV 15.1 % (11.5-14.5); RED CELL DISTRIBUTION WIDTH SD 50.7 fL (36.4-46.3); WHITE BLOOD COUNT 4.65 K/uL (4.8-10.8)
[2017-12-29 08:53] LABS: PLATELET COUNT 80 K/uL (130-400)
[2017-12-29 08:57] LABS: BLOOD UREA NITROGEN 54 mg/dl (7-18); CALCIUM 9.1 mg/dl (8.5-10.1); CARBON DIOXIDE 33 mmol/L (21-32); CREATININE 1.39 mg/dl (0.60-1.20); GLUCOSE 44 mg/dl (70-99); SODIUM 139 mmol/L (136-145)
== END | disposition home or self-care (01) ==
LOC: C.LABUPNIT 08:03
PROVIDERS: ATTEND Nurse Practitioner Family
DX: J12.89 Other viral pneumonia (principal); N18.4 Chronic kidney disease, stage 4 (severe)

== ENCOUNTER → 2017-12-31 | Outpatient (CLI) | payer OTHER ==
[~2017-12-31] MED LIST changes: -PRED10TA PO
[2017-12-31 10:03] LABS: HEMATOCRIT 31.6 % (37-47); HEMOGLOBIN 10.1 g/dL (12.0-16.0); MEAN CELL VOLUME 92.1 fL (80-100); MEAN CORPUSCULAR HEMOGLOBIN 29.4 pg (25-34); RED CELL DISTRIBUTION WIDTH SD 50.8 fL (36.4-46.3); WHITE BLOOD COUNT 4.28 K/uL (4.8-10.8)
[2017-12-31 10:10] LABS: MEAN PLATELET VOLUME 10.4 fL (7.4-10.4); PLATELET COUNT 81 K/uL (130-400)
[2017-12-31 10:29] LABS: BLOOD UREA NITROGEN 54 mg/dl (7-18); CARBON DIOXIDE 33 mmol/L (21-32); CREATININE 1.71 mg/dl (0.60-1.20); GLUCOSE 80 mg/dl (70-99); POTASSIUM 3.4 mmol/L (3.5-5.1); SODIUM 137 mmol/L (136-145)
[2017-12-31 10:30] LABS: IG# 0.03 K/uL (0.00-0.02); LYMPH % 19.9 %; LYMPH ABS # 0.85 K/uL (1.2-3.4); MONO % 7.9 %; MONO ABS # 0.34 K/uL (0.11-0.59); NEUT % 71.5 %; NEUT ABS # 3.06 K/uL (1.4-6.5)
== END ==
LOC: C.LABUPNIT 09:12
PROVIDERS: ATTEND Nurse Practitioner Family
DX: J12.89 Other viral pneumonia (principal); N18.4 Chronic kidney disease, stage 4 (severe); I50.30 Unspecified diastolic (congestive) heart failure

== ENCOUNTER → 2018-01-04 | Outpatient (CLI) | payer OTHER ==
[2018-01-04 09:28] LABS: HEMATOCRIT 31.6 % (37-47); MEAN CELL VOLUME 92.9 fL (80-100); MEAN CORPUSCULAR HEMOGLOBIN 29.4 pg (25-34); MEAN CORPUSCULAR HGB CONC 31.6 g/dl (32-36); RED CELL DISTRIBUTION WIDTH CV 15.3 % (11.5-14.5); RED CELL DISTRIBUTION WIDTH SD 51.8 fL (36.4-46.3); WHITE BLOOD COUNT 4.43 K/uL (4.8-10.8)
[2018-01-04 09:38] LABS: MEAN PLATELET VOLUME 11.4 fL (7.4-10.4); PLATELET COUNT 71 K/uL (130-400)
[2018-01-04 10:08] LABS: BLOOD UREA NITROGEN 57 mg/dl (7-18); CALCIUM 8.7 mg/dl (8.5-10.1); CARBON DIOXIDE 30 mmol/L (21-32); CREATININE 1.96 mg/dl (0.60-1.20); GLUCOSE 114 mg/dl (70-99); POTASSIUM 3.3 mmol/L (3.5-5.1); SODIUM 140 mmol/L (136-145)
== END ==
LOC: C.LABUPNIT 09:06
PROVIDERS: ATTEND Nurse Practitioner Family
DX: J12.89 Other viral pneumonia (principal); N18.4 Chronic kidney disease, stage 4 (severe)

== ENCOUNTER → 2018-01-06 | Outpatient (CLI) | payer OTHER ==
[2018-01-06 08:38] LABS: HEMATOCRIT 31.5 % (37-47); HEMOGLOBIN 9.9 g/dL (12.0-16.0); MEAN CELL VOLUME 93.5 fL (80-100); MEAN CORPUSCULAR HEMOGLOBIN 29.4 pg (25-34); MEAN CORPUSCULAR HGB CONC 31.4 g/dl (32-36); RED CELL DISTRIBUTION WIDTH CV 15.6 % (11.5-14.5); RED CELL DISTRIBUTION WIDTH SD 52.7 fL (36.4-46.3)
[2018-01-06 08:43] LABS: MEAN PLATELET VOLUME 10.8 fL (7.4-10.4); PLATELET COUNT 72 K/uL (130-400)
[2018-01-06 08:45] LABS: BLOOD UREA NITROGEN 57 mg/dl (7-18); CALCIUM 8.9 mg/dl (8.5-10.1); CARBON DIOXIDE 33 mmol/L (21-32); CREATININE 2.02 mg/dl (0.60-1.20); GLUCOSE 60 mg/dl (70-99); POTASSIUM 3.3 mmol/L (3.5-5.1); SODIUM 144 mmol/L (136-145)
[2018-01-06 09:04] LABS: EOS % 3.1 %; EOS ABS # 0.13 K/uL (0-0.5); IG# 0.02 K/uL (0.00-0.02); LYMPH % 22.1 %; LYMPH ABS # 0.93 K/uL (1.2-3.4); MONO % 8.8 %; MONO ABS # 0.37 K/uL (0.11-0.59); NEUT % 65.5 %; NEUT ABS # 2.75 K/uL (1.4-6.5)
== END ==
LOC: C.LABUPNIT 08:12
PROVIDERS: ATTEND Nurse Practitioner Family
DX: D63.1 Anemia in chronic kidney disease (principal); E08.9 Diabetes mellitus due to underlying condition without complications; N18.9 Chronic kidney disease, unspecified

== ENCOUNTER → 2018-01-09 | Outpatient (CLI) | payer OTHER ==
[~2018-01-09] MED LIST changes: +ACET-1311 PO; +APIX1TAB PO; +ASPCH81X PO; +CRG125 PO; +DXY100 PO; +INSDGIPEN SC; +ISOS30TA3 PO; +MISCCAP80 PO; +ORJ MT; +PRAMCRE2 RE; +PRED10TA PO; +SENN-61 PO
[2018-01-09 07:07] LABS: HEMATOCRIT 30.7 % (37-47); HEMOGLOBIN 9.8 g/dL (12.0-16.0); MEAN CELL VOLUME 92.7 fL (80-100); MEAN CORPUSCULAR HEMOGLOBIN 29.6 pg (25-34); MEAN CORPUSCULAR HGB CONC 31.9 g/dl (32-36); RED CELL DISTRIBUTION WIDTH CV 15.6 % (11.5-14.5); RED CELL DISTRIBUTION WIDTH SD 52.3 fL (36.4-46.3)
[2018-01-09 07:14] LABS: MEAN PLATELET VOLUME 9.6 fL (7.4-10.4); PLATELET COUNT 63 K/uL (130-400)
== END ==
LOC: C.LABUPUNI 11:38
PROVIDERS: ATTEND Nurse Practitioner Family
DX: J12.89 Other viral pneumonia (principal)

== ENCOUNTER → 2018-01-20 | Outpatient (CLI) | payer OTHER ==
[~2018-01-20] MED LIST changes: -ASPCH81 OR; -CARV25TA2 PO; -CMD2 PO; -CMD4 PO; -INSDGIPEN SQ; -ISOS30TA3 PO
[2018-01-20 09:20] LABS: BLOOD UREA NITROGEN 53 mg/dl (7-18); CALCIUM 9.8 mg/dl (8.5-10.1); CARBON DIOXIDE 40 mmol/L (21-32); CREATININE 2.05 mg/dl (0.60-1.20); GLUCOSE 66 mg/dl (70-99); POTASSIUM 2.6 mmol/L (3.5-5.1); SODIUM 137 mmol/L (136-145)
== END ==
LOC: C.LABUPNIT 08:47
PROVIDERS: ATTEND Nurse Practitioner Family
DX: N18.4 Chronic kidney disease, stage 4 (severe) (principal)

== ENCOUNTER → 2018-03-22 | Outpatient (CLI) | payer OTHER ==
[2018-03-22 09:15] LABS: BLOOD UREA NITROGEN 32 mg/dl (7-18); CALCIUM 9.1 mg/dl (8.5-10.1); CARBON DIOXIDE 28 mmol/L (21-32); GLUCOSE 110 mg/dl (70-99); POTASSIUM 3.7 mmol/L (3.5-5.1); SODIUM 145 mmol/L (136-145)
== END ==
LOC: C.LABUPNIT 08:43
PROVIDERS: ATTEND Nurse Practitioner Family
DX: N18.4 Chronic kidney disease, stage 4 (severe) (principal)

== ENCOUNTER → 2018-03-23 | Outpatient (CLI) | payer OTHER ==
[2018-03-25 11:12] LABS: METHYLMALONIC ACID 781 NMOL/L (87-318)
== END ==
LOC: C.LABUPNIT 09:18
PROVIDERS: ATTEND Nurse Practitioner Family
DX: D51.9 Vitamin B12 deficiency anemia, unspecified (principal)

== ENCOUNTER → 2018-04-04 | Outpatient (CLI) | payer OTHER ==
[~2018-04-04] MED LIST changes: +RCL/25 PO; -RCL25 PO
== END ==
LOC: C.LABUPNIT 13:08
PROVIDERS: ATTEND Nurse Practitioner Family
DX: N39.0 Urinary tract infection, site not specified (principal)

== ENCOUNTER → 2018-04-05 | Outpatient (CLI) | payer OTHER ==
[2018-04-05 10:17] LABS: BLOOD UREA NITROGEN 39 mg/dl (7-18); CALCIUM 8.8 mg/dl (8.5-10.1); CARBON DIOXIDE 32 mmol/L (21-32); CREATININE 1.98 mg/dl (0.60-1.20); GLUCOSE 126 mg/dl (70-99); POTASSIUM 3.4 mmol/L (3.5-5.1); SODIUM 142 mmol/L (136-145)
== END ==
LOC: C.LABUPNIT 09:30
PROVIDERS: ATTEND Nurse Practitioner Family
DX: N18.4 Chronic kidney disease, stage 4 (severe) (principal)

== ENCOUNTER → 2018-04-12 | Outpatient (CLI) | payer OTHER ==
[2018-04-12 10:10] LABS: ALBUMIN 2.9 gm/dl (3.4-5.0); PHOSPHORUS 3.2 mg/dl (2.5-4.9)
== END ==
LOC: C.LABUPNIT 09:24
PROVIDERS: ATTEND Nurse Practitioner Family
DX: E88.09 Other disorders of plasma-protein metabolism, not elsewhere classified (principal); E55.9 Vitamin D deficiency, unspecified; E21.5 Disorder of parathyroid gland, unspecified; E83.39 Other disorders of phosphorus metabolism

== ENCOUNTER → 2018-04-15 | Outpatient (CLI) | payer OTHER | LOC: C.LABUPNIT 08:59 | PROVIDERS: ATTEND Nurse Practitioner Family | DX: R41.82 Altered mental status, unspecified (principal) ==

== ENCOUNTER → 2018-04-19 | Outpatient (CLI) | payer OTHER ==
[2018-04-19 10:03] LABS: BLOOD UREA NITROGEN 39 mg/dl (7-18); CALCIUM 9.5 mg/dl (8.5-10.1); CARBON DIOXIDE 30 mmol/L (21-32); CREATININE 2.17 mg/dl (0.60-1.20); GLUCOSE 125 mg/dl (70-99); POTASSIUM 3.3 mmol/L (3.5-5.1); SODIUM 145 mmol/L (136-145)
== END ==
LOC: C.LABUPNIT 09:02
PROVIDERS: ATTEND Nurse Practitioner Family
DX: N18.4 Chronic kidney disease, stage 4 (severe) (principal)

== ENCOUNTER 2019-01-14 07:26 | Inpatient (IN) ==
[2019-01-14] MEDS ORDERED: SODIUM CHLORIDE 0.9% 1000ML 1,000 ML IV SCH (07:45)
--- NOTE | 2019-01-14 08:22 | Emergency Department Note ---
Entered by Mariel Amanda acting as a scribe for ED Provider Note CHIEF COMPLAINT: Rectal bleeding HISTORY OF PRESENT ILLNESS: The patient is an 78 year old female who presents to the Emergency Room via EMS with complaints of an episode of rectal bleeding. Per RN, the patient resides at [facility] and was referred here after employees noticed she had a large amount of blood in her stool. The patient reports that she does feel weak. She is on anticoagulation. No medication given for this episode this morning. The patient denies chest pain, shortness of breath, abdominal pain, nausea, urinary symptoms, diarrhea, or other complaints. REVIEW OF SYSTEMS: See HPI for pertinent positives and negatives. A total of ten systems were reviewed and were otherwise negative. PMHx/PSHx: Chronic anticoagulation GERD CVA PECKD COPD DM History of an appendectomy. History of heart artery stent. SOCIAL HISTORY: Patient lives at [facility]. Former smoker. PHYSICAL EXAM: GENERAL: Awake, alert, tired appearing, in no distress HENT: Normocephalic, atraumatic. Oropharynx unremarkable. EYES: PERRL. Mild erythema on the left conjunctiva. Stye present left upper lid. Mild swelling and redness associated. Sclera non-icteric. NECK: Inspection normal. Non-tender. Supple. No nuchal rigidity. FROM. No masses. RESPIRATORY: Clear to auscultation. No wheezes. No rales. Normal respiratory effort. CARDIAC: Normal rate. Normal rhythm. No murmurs. No rubs. Extremities warm and well perfused. Pulses equal. No JVD. GI: Soft, non-distended. No tenderness to palpation. No rebound or guarding. No masses. RECTAL: Deferred. MUSCULOSKELETAL: Atraumatic. Chest examination reveals no tenderness. The back is symmetrical on inspection without obvious abnormality. There is no CVA tenderness to palpation. No joint edema. LOWER EXTREMITIES: Calves are equal size bilaterally and non-tender. 2+ bilateral lower extremity edema with chronic venous discoloration. NEURO: Normal sensorium. No sensory or motor deficits noted. SKIN: No rash or jaundice noted. EMERGENCY DEPARTMENT COURSE: 732: The patient was evaluated in room B8, and a complete history and physical examination were performed. 1114: I discussed the patient's case with Lashaun Castillo [facility] She, in conjunction with Dr. Bowles, will evaluate the patient for further management. 1249: I spoke with Dr. Bowles. She will contact critical care team for central line placement. MEDICAL DECISION MAKING: Triage Nursing notes reviewed and agree them. The patient's history was concerning for possible gastrointestinal bleeding. Differential diagnosis: Etiologies such as diverticulosis, AVM, coagulopathy, colitis, inflammatory bowel disease, malignancy,Capri-Diaz tear, esophagitis, peptic ulcer disease, variceal bleed, gastritis, epistaxis, fissure, hemorrhoids, as well as others were entertained. Physical exam: As above. ER treatment provided: Normal saline hydration Cardiac monitoring On reassessment the patient felt better. Diagnostics interpreted by me: ECG: No dysrhythmia The labs revealed mild anemia on CBC with hemoglobin of 10.9. No leukocytosis. Chemistry panel was significant for a mild elevation of her BUN and creatinine. Minimal hypokalemia. Patient is on anticoagulation. She has what appears to be a lower GI bleed. She has no abdominal tenderness. She will need further monitoring and serial ev aluation of her H&H. A type and screen was sent. Currently she is hemodynamically stable. Consultation: A consultation was placed with the hospitalist. The case was discussed and diagnostics were reviewed. The patient was evaluated in the ER for further treatment. IMPRESSION: GI bleed, hyponatremia, chronic renal insufficiency. PLAN: Being evaluated by hospitalist. The scribe's documentation has been prepared under my direction and personally reviewed by me in its entirety. I confirm that the note above accurately reflects all work, treatment, procedures, and medical decision making performed by me. 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 Father , Alcoholic No problems noted. Brother , Testicular cancer No problems noted. Social History Preferred Language: Honduran Communication Ability: + c Communication Ability Comment: baseline dementia Application Packaging Consultant Required: No Beliefs That Will Affect Care: None Current Living Situation: Senior Care Other Information That Helps Us Care for You: No Feels Safe at Home: Yes Safety Concerns: Feels Safe At This Time Smoking Status: Former smoker Cigarettes Per Day: 20 Do You Dip or Chew Tobacco: No Smoking End Date: 1995 Second Hand Exposure: No Tobacco Cessation Education Requested by Patient: No Hx Alcohol Use: No Hx Substance Use: No Results & Data Vital Signs Vital Signs - 24 hr 01/14/19 07:43 01/14/19 09:39 Temperature 36.4 C L Temperature Source Oral Sepsis Recent Fever Within 48 Hours No Sepsis New/Unexplained Change in Mental Status No Sepsis Action Taken by Nursing No Action Required Pulse Rate 74 Pulse Rate [Left] 80 Respiratory Rate 26 H 24 Respiratory Effort / Characteristics Non-Labored Spontaneous Spontaneous Blood Pressure 183/90 H Blood Pressure [Right Arm] 169/91 H Blood Pressure Mean 121 Blood Pressure Mean [Right Arm] 117 Blood Pressure Position Lying Blood Pressure Position [Right Arm] Lying Pulse Oximetry 100 99 Oxygen Delivery Method Room Air Room Air Home Medications Current Medication List: was personally reviewed by me Laboratory Data Attestation: I reviewed the patient's lab results. Result diagrams: 01/14/19 14:23 01/14/19 14:23 Lab Results 01/14/19 01/14/19 01/14/19 Range/Units 08:36 08:37 08:37 WBC 5.53 (4.8-10.8) K/uL RBC 3.59 L (4.2-5.4) M/uL Hgb 10.9 L (12.0-16.0) g/dL Hct 34.7 L (37-47) % MCV 96.7 (80-100) fL MCH 30.4 (25-34) pg MCHC 31.4 L (32-36) g/dL RDW Std Deviation 49.7 H (36.4-46.3) fL RDW Coeff of Eduardo 14.1 (11.5-14.5) % Plt Count 91 L (130-400) K/uL MPV 12.0 H (7.4-10.4) fL Immature Gran % (Auto) 0.5 % Neut % (Auto) 59.4 % Lymph % (Auto) 29.8 % Blaine % (Auto) 8.3 % Eos % (Auto) 1.8 % Baso % (Auto) 0.2 % Immature Gran # (Auto) 0.03 H (0.00-0.02) K/uL Neut # (Auto) 3.28 (1.4-6.5) K/uL Lymph # (Auto) 1.65 (1.2-3.4) K/uL Blaine # (Auto) 0.46 (0.11-0.59) K/uL Eos # (Auto) 0.10 (0-0.5) K/uL Baso # (Auto) 0.01 (0-0.2) K/uL PT 11.0 (9.0-12.0) Seconds INR 1.1 (0.9-1.1) APTT 22.8 (21.0-31.0) Seconds PTT Ratio 0.8 Sodium 150 H (136-145) mmol/L Potassium 3.6 D (3.5-5.1) mmol/L Chloride 112 H (98-107) mmol/L Carbon Dioxide 32 (21-32) mmol/L Anion Gap 7.0 (3-11) BUN 66 H (7-18) mg/dl Creatinine 2.92 H (0.6-1.2) mg/dl Est Cr Clr Drug Dosing 14.6 ml/min Est GFR ( Amer) 16.9 Est GFR (Non-Af Amer) 14.6 BUN/Creatinine Ratio 22.6 H (10-20) Glucose 104 H (70-99) mg/dl Calcium 9.4 (8.5-10.1) mg/dl Total Bilirubin 0.7 (0.2-1) mg/dl AST 14 L (15-37) U/L ALT 18 (12-78) U/L Alkaline Phosphatase 66 (45-117) U/L Total Protein 6.3 L (6.4-8.2) gm/dl Albumin 3.0 L (3.4-5.0) gm/dl Globulin 3.3 (2.5-4.0) gm/dl Albumin/Globulin Ratio 0.9 (0.9-2) Blood Type Antibody Screen 01/14/19 Range/Units 08:38 WBC (4.8-10.8) K/uL RBC (4.2-5.4) M/uL Hgb (12.0-16.0) g/dL Hct (37-47) % MCV (80-100) fL MCH (25-34) pg MCHC (32-36) g/dL RDW Std Deviation (36.4-46.3) fL RDW Coeff of Eduardo (11.5-14.5) % Plt Count (130-400) K/uL MPV (7.4-10.4) fL Immature Gran % (Auto) % Neut % (Auto) % Lymph % (Auto) % Blaine % (Auto) % Eos % (Auto) % Baso % (Auto) % Immature Gran # (Auto) (0.00-0.02) K/uL Neut # (Auto) (1.4-6.5) K/uL Lymph # (Auto) (1.2-3.4) K/uL Blaine # (Auto) (0.11-0.59) K/uL Eos # (Auto) (0-0.5) K/uL Baso # (Auto) (0-0.2) K/uL PT (9.0-12.0) Seconds INR (0.9-1.1) APTT (21.0-31.0) Seconds PTT Ratio Sodium (136-145) mmol/L Potassium (3.5-5.1) mmol/L Chloride (98-107) mmol/L Carbon Dioxide (21-32) mmol/L Anion Gap (3-11) BUN (7-18) mg/dl Creatinine (0.6-1.2) mg/dl Est Cr Clr Drug Dosing ml/min Est GFR ( Amer) Est GFR (Non-Af Amer) BUN/Creatinine Ratio (10-20) Glucose (70-99) mg/dl Calcium (8.5-10.1) mg/dl Total Bilirubin (0.2-1) mg/dl AST (15-37) U/L ALT (12-78) U/L Alkaline Phosphatase (45-117) U/L Total Protein (6.4-8.2) gm/dl Albumin (3.4-5.0) gm/dl Globulin (2.5-4.0) gm/dl Albumin/Globulin Ratio (0.9-2) Blood Type A Positive Antibody Screen NEGATIVE Administered Medications Dextrose (D5w) 1,000 mls @ 150 mls/hr IV .Q6H40M [facility] Stop: 01/15/19 03:34 Last Admin: 01/14/19 16:34 Dose: 150 mls/hr Documented by: [id number] Lorazepam (Ativan) 0.5 mg SL Q12 PRN PRN Reason: anxiousness Stop: 02/13/19 13:42 Last Admin: 01/14/19 16:35 Dose: 0.5 mg Documented by: [id number] Pantoprazole Sodium (Protonix) 40 mg PO QAM [facility] Stop: 02/13/19 14:29 Last Admin: 01/14/19 16:34 Dose: 40 mg Documented by: [id number] Discontinued Medications Sodium Chloride (Nss 1000ml) 1,000 mls @ 100 mls/hr IV .Q10H [facility] Stop: 01/14/19 17:44 Last Admin: 01/14/19 08:40 Dose: 100 mls/hr Documented by: [id number] Sodium Chloride (Nss 1000ml) 1,000 mls @ 500 mls/hr IV .Q2H [facility] Stop: 01/14/19 14:51 Last Admin: 01/14/19 16:34 Dose: 500 mls/hr Documented by: [id number] ECG Data Attestation: I personally reviewed and interpreted this ECG as follows: Indication: weakness Rate (beats per minute): 66 Rhythm: atrial fibrillation Findings: + Q waves (Inferior); no PVC and no ST elevation Blood Pressure Blood Pressure Findings: Elevated blood pressure Discharge Plan Visit Data *Final* Discharge Date/Time: 01/14/19 13:26 Chief Complaint: Rectal Bleed ED Provider: Jose Rafael Hernandez Discharge Problem: GI (gastrointestinal bleed), Hyponatremia, Chronic renal insufficiency Patient Disposition: Admitted As Inpatient Discharge Instructions Interventions: ED Discharge Assessment Last Done: 01/14/19 13:26 Discharge Problem: GI (gastrointestinal bleed) Qualifiers: GI bleed type/associated pathology: unspecified gastrointestinal hemorrhage type Qualified Code(s): K92.2 - Gastrointestinal hemorrhage, unspecified Chronic renal insufficiency Qualifiers: Chronic kidney disease stage: unspecified stage Qualified Code(s): N18.9 - Ad Terminal Makeup Operator tam kidney disease, unspecified The scribe's documentation has been prepared under my direction and personally reviewed by me in its entirety. I confirm that the note above accurately refle cts all work, treatment, procedures, and medical decision making performed by me.
[2019-01-14 08:57] LABS: Hematocrit (blood only) 34.7 % (37-47); Hemoglobin 10.9 g/dL (12.0-16.0); Mean Corpuscular Hgb Conc 31.4 g/dL (32-36); Mean Corpuscular Volume 96.7 fL (80-100); Platelet Count 91 K/uL (130-400); RDW Coefficient of Variation 14.1 % (11.5-14.5); RDW Standard Deviation 49.7 fL (36.4-46.3); Red Blood Count 3.59 M/uL (4.2-5.4); White Blood Count 5.53 K/uL (4.8-10.8)
[2019-01-14 09:05] LABS: INR 1.1 (0.9-1.1); Partial Thromboplastin Ratio 0.8; Partial Thromboplastin Time 22.8 Seconds (21.0-31.0)
[2019-01-14 09:15] LABS: BUN Creatinine Ratio 22.6 (10-20); Calcium 9.4 mg/dl (8.5-10.1); Creatinine Clr Calc Pharmacy 14.6 ml/min; Est GFR (African American) 16.9; Est GFR (Non-African American) 14.6; Potassium 3.6 mmol/L (3.5-5.1)
[2019-01-14 09:17] LABS: Albumin Globulin Ratio 0.9 (0.9-2); Bilirubin,Total 0.7 mg/dl (0.2-1); Globulin 3.3 gm/dl (2.5-4.0); Total Protein 6.3 gm/dl (6.4-8.2)
[2019-01-14 09:58] LABS: Basophils # (auto) 0.01 K/uL (0-0.2); Basophils % (auto) 0.2 %; Eosinophils % (auto) 1.8 %; Immature Granulocytes # (auto) 0.03 K/uL (0.00-0.02); Immature Granulocytes % (auto) 0.5 %; Lymphocytes # (auto) 1.65 K/uL (1.2-3.4); Lymphocytes % (auto) 29.8 %; Monocytes # (auto) 0.46 K/uL (0.11-0.59); Monocytes % (auto) 8.3 %; Neutrophils # (auto) 3.28 K/uL (1.4-6.5); Neutrophils % (auto) 59.4 %
--- NOTE | 2019-01-14 11:44 | History & Physical Report ---
Date of Service January 14, 2019 Assessment & Plan (1) GI (gastrointestinal bleed): On Eliquis, which was stopped. Several episodes of hematochezia including two large bloody BMs in the ER this morning. H/H normal but expected to fall. Also getting IVF because hypovolemic on exam and hypernatremic. BB, diuretics, ASA held. Abdominal pain reported but suspect this was bladder discomfort after funes placement as this was a big concern for her. Still will check lactate and AXR. Gastro consult in place. Hemodynamically stable at this time with 24g PIV in place despite multiple attempts. Gave bolus 1L and will reattempt another large bore PIV on the floor. If unsuccessful, will consider central line placement depending on hemodynamics. Trend H/H (2) Hypernatremia: Diuretics held. Mucous membranes very dry. Initial bolus with NSS to p ump up volume, cont with free water @ 150cc/hr until Na in normal range. (3) KARLEE (acute kidney injury): Stage IV CKD at baseline. Slightly worse creat at 2.9 with base 2.2. Cont hydration efforts and repeat. (4) Atrial fibrillation: held Eliquis, normal rate (5) History of coronary artery disease: held ASA (PCI in 1999), held BB in acute bleed, cont Imdur, cont statin (6) COPD (chronic obstructive pulmonary disease): chronic, stable, no wheezing. Cont 3L oxygen qHS and home inhaler therapy. (7) DMII (diabetes mellitus, type 2): ISS with glargine at 50% dose while NPO. (8) Morbid obesity: (9) DVT prophylaxis: chemoprophy contraindicated in setting of bleed. SCDs Full Code-palliative to help with this as she has a POLST that states DNR Dispo-to [facility]U [facility] Hospital[facility] History of Present Illness Chief Complaint: Rectal bleeding Primary Care Provider: [facility] 78-year-old female with diabetes, COPD, paroxysmal atrial fibrillation on Eliquis presents with hematochezia that began overnight. She resides in a personal skilled nursing and woke up this morning with a reddish appearing stool. She denies that this was blackish in color but then subsequent stools she states she did not visualize as she was unable to. She does report some right lower quadrant abdominal pain which does not appear to be present on exam. She is also very concerned about urinating and urgency to urinate, however, has a catheter. Despite being told she can relax and urinate she is still very concerned about this and states "I have to go to the bathroom" when I examined her abdomen and pushed. She reports eating breakfast this morning including cereal and denies any nausea and vomiting. She denies any lightheadedness with ambulation, chest pain, shortness of breath. She reports feeling well yesterday. She denies any history of abdominal pain in the past. She denies any fevers or chills recently. She denies any bleeding from other sites. She denies any medication changes in the last several weeks. In the ER IV access was very difficult and IV team was called into place a 24- gauge peripheral IV. Additional IV access was unable to be obtained. As she was hemodynamically stable IV fluids were started in hopes this would make additional peripheral IV access easier in the next couple hours. H&H is 10.9/34.7 which is her baseline. She did have 2 large episodes of bright red blood per rectum while in the ER. INR is 1.1 sodium is notably 150, and her mucous membranes are very dry. She continues to report a dry mouth. She otherwise denies any symptoms. Allergies Allergy/AdvReac Type Severity Reaction Status Date / Time codeine Allergy Unknown UNKNOWN Verified 01/14/19 08:19 aspirin AdvReac Intermediate (ULCER) Verified 01/14/19 08:19 venlafaxine AdvReac Intermediate DROWINESS/ Verified 01/14/19 08:19 CONFUSION cephalexin AdvReac Mild DROWSINESS, Verified 01/14/19 08:[address], UPSET STOMACH oxycodone AdvReac Mild n/v Verified 01/14/19 08:19 Home Medications Home Medications Medication Instructions Recorded Confirmed Type nitroglycerin [Nitrostat] 0.4 mg UT PRN PRN #0 btl 06/20/15 01/14/19 History omeprazole 20 mg PO DAILY #0 06/20/15 01/14/19 History solifenacin [Vesicare] 5 mg PO DAILY #0 tab 05/15/16 01/14/19 History lovastatin 80 mg PO HS #0 09/07/16 01/14/19 History ferrous sulfate 325 mg PO DAILY #0 01/06/17 01/14/19 History budesonide [Pulmicort] 0.5 mg NEB BID #120 05/10/17 01/14/19 History calcitriol 0.5 mcg PO DAILY #0 cap 09/24/17 01/14/19 History Lantus Solostar U-100 Insulin 27 units SC DAILY #0 pen 01/11/18 01/14/19 History Probiotic (S.boulardii) 250 mg PO BID #0 01/11/18 01/14/19 History acetaminophen 650 mg PO Q6 PRN #0 tab 01/11/18 01/14/19 History apixaban 2.5 mg PO BID #0 tab 01/11/18 01/14/19 History aspirin 81 mg PO DAILY #0 01/11/18 01/14/19 History prednisone 10 mg PO DAILY #0 tab 01/11/18 01/14/19 History ranitidine HCl 150 mg PO HS #0 tab 04/29/18 01/14/19 History alum-mag hydroxide-simeth [Maalox 30 ml PO Q6 PRN 09/23/18 01/14/19 History Maximum Strength] amlodipine 5 mg PO DAILY 09/23/18 01/14/19 History bisacodyl [Dulcolax (bisacodyl)] 10 mg MD DAILY PRN 09/23/18 01/14/19 History carvedilol [Coreg] 12.5 mg PO BID 09/23/18 01/14/19 History clonidine HCl 0.1 mg PO BID 09/23/18 01/14/19 History smdvgcvo-xchixxp-vlzomcw 1 applic PO DAILY PRN 09/23/18 01/14/19 History [Insta-Glucose] glucagon (human recombinant) 1 mg IM DIRECTED PRN 09/23/18 01/14/19 History [Glucagon Emergency Kit (human)] guaifenesin 10 ml PO Q6 PRN 09/23/18 01/14/19 History hydralazine 50 mg PO TID 09/23/18 01/14/19 History ipratropium-albuterol 3 ml INHALATION Q6H PRN 09/23/18 01/14/19 History isosorbide mononitrate 60 mg PO DAILY 09/23/18 01/14/19 History magnesium hydroxide [Milk of 30 ml PO Q72H PRN 09/23/18 01/14/19 History Magnesia] phenyleph-min oil-petrolatum 1 applic MD Q12 PRN 09/23/18 01/14/19 History [Preparation H] polyethylene glycol 3350 [Miralax] 17 g PO Q2D 09/23/18 01/14/19 History salicylic acid [Selsun Blue 1 applic TOPICAL 2XWK 09/23/18 01/14/19 History Naturals] saliva substitute combo no.9 15 ml PO Q5H PRN 09/23/18 01/14/19 History [Biotene Dry Mouth Oral Rinse] sennosides-docusate sodium 1 tab PO BID 09/23/18 01/14/19 History [Senokot-S] sodium phosphates [Fleet Enema] 1 applic MD DAILY PRN 09/23/18 01/14/19 History Gentamicin Sulf 3% Solution 2 drp OPL TID 01/14/19 01/14/19 History insulin aspart U-100 [Novolog 1 sliding scale dose SUBCUT 01/14/19 01/14/19 History U-100 Insulin aspart] USEASDIRECTD insulin aspart U-100 [Novolog 4 unit SUBCUT AC 01/14/19 01/14/19 History U-100 Insulin aspart] lorazepam 0.5 mg SUBLINGUAL Q12 PRN 01/14/19 01/14/19 History nitrofurantoin monohyd/m-cryst 100 mg PO BID 01/14/19 01/14/19 History [Macrobid] ondansetron 4 mg PO Q8H PRN 01/14/19 01/14/19 History potassium chloride 30 meq PO DAILY 01/14/19 01/14/19 History torsemide 40 mg PO BID 01/14/19 01/14/19 History Past Med/Surg History Medical History Anemia in stage 4 chronic kidney disease CKD (chronic kidney disease), stage IV COPD, moderate Chronic ischemic heart disease Esophageal reflux Gastroparesis History of pulmonary embolism 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 Father , Alcoholic No problems noted. Brother , Testicular cancer No problems noted. Social History Preferred Language: [place] Communication Ability: + c Communication Ability Comment: baseline dementia Electric Switch Tester Required: No Beliefs That Will Affect Care: None Current Living Situation: Skilled Nursing Other Information That Helps Us Care for You: No Feels Safe at Home: Yes Safety Concerns: Feels Safe At This Time Smoking Status: Former smoker Cigarettes Per Day: 20 Do You Dip or Chew Tobacco: No Smoking End Date: 1995 Second Hand Exposure: No Tobacco Cessation Education Requested by Patient: No Hx Alcohol Use: No Hx Substance Use: No Review of Systems Review of Systems: All systems reviewed & are unremarkable except as noted in HPI & below Physical Exam Physical Exam: CONSTITUTIONAL: obese, vitals as above, generally well appearing, in mild distress EYES: PERRL, +conjunctival discharge and crusting bilaterally L>R, no scleral icterus ENT: oropharynx clear, mucous membranes are dry RESPIRATORY: clear to auscultation bilaterally, no crackles, rales or wheezes, normal respiratory effort CARDIOVASCULAR: regular rate and irregular rhythm, S1 and 2 heard without murmurs, gallops or rubs, no JVD GASTROINTESTINAL: normal bowel sounds, soft, nontender, nondistended, no CVA tenderness MUSCULOSKELETAL: head is normocephalic and atraumatic, generalized weakness but able to sit up in bed without assistance. SKIN: warm and dry, some bruising on R hand NEUROLOGIC: No facial palsy, no dysarthria. CN 2-12 grossly intact, normal speech PSYCHIATRIC: alert cooperative and oriented to person and place but not time. Results & Data Vital Signs (Past 12 Hours) Vital Signs Temp Pulse Pulse Resp BP BP Pulse Ox 01/14/19 09:39 80 24 169/91 H 99 01/14/19 07:43 36.4 C L 74 26 H 183/90 H 100 Laboratory Results Short CBC 01/14/19 Range/Units 08:36 WBC 5.53 (4.8-10.8) K/uL Hgb 10.9 L (12.0-16.0) g/dL Hct 34.7 L (37-47) % Plt Count 91 L (130-400) K/uL BMP 01/14/19 08:37 Sodium 150 H Potassium 3.6 D Chloride 112 H Carbon Dioxide 32 BUN 66 H Creatinine 2.92 H Glucose 104 H Calcium 9.4 Liver Function 01/14/19 Range/Units 08:37 Total Bilirubin 0.7 (0.2-1) mg/dl AST 14 L (15-37) U/L ALT 18 (12-78) U/L Alkaline Phosphatase 66 (45-117) U/L Albumin 3.0 L (3.4-5.0) gm/dl Code Status & VTE Plan Code Status full code although has a POLST that state DNR. This was discussed with her and I showed her the document, but she states she wants everything done. VTE Prophylaxis Plan VTE Prophylaxis will be ordered: Yes Reason for no VTE drug order: Contraindicated Critical Care Time Critical Care Time: No (1) GI (gastrointestinal bleed) GI bleed type/associated pathology: unspecified gastrointestinal hemorrhage type Qualified Code(s): K92.2 - Gastrointestinal hemorrhage, unspecified
[2019-01-14] MEDS ORDERED: SODIUM CHLORIDE 0.9% 1000ML 1,000 ML IV ONE (12:52)
[2019-01-14] MEDS ORDERED: SALIVA SUBSTITUTE COMBO NO 9 PO PRN (13:43)
[2019-01-14] MEDS ORDERED: ALBUT/IPRATROP 3MG/0.5MG NEB 3 ML VIAL INH PRN (13:43)
[2019-01-14] MEDS ORDERED: DEXTROSE 50% 50 ML SYRINGE IV PRN (13:55)
[2019-01-14] MEDS ORDERED: CARBOHYDRATES FOR HYPOGLYCEMIA PO PRN (13:55)
[2019-01-14] MEDS ORDERED: GLUCOSE 40% GEL 15 GM TUBE PO PRN (13:55)
[2019-01-14] MEDS ORDERED: GLUCOSE 10 TABS/TUBE PO PRN (13:55)
[2019-01-14] MEDS ORDERED: GLUCAGON FOR INJ 1 MG VIAL SQ PRN (13:55)
[2019-01-14] MEDS ORDERED: PANTOprazole 40 MG TAB PO SCH (14:30)
--- NOTE | 2019-01-14 14:32 | Gastrointestinal Consultation ---
Date of Consultation January 14, 2019 Assessment & Plan (1) Rectal bleedin78 year old female who presents with painless rectal bleeding (BRB w/ clots) She does have history of both c.diff colitis and diverticular bleed. Daughter notes recent ABX use for UTI. She is awake, oriented to self. Vital signs stable and stable HGB. Family notes she is a DNR and requests to avoid all invasive procedures. Would check stool studies, treat conservatively. - Trend H&H - Transfuse PRN per protocol - Monitor and document all GI bowel movements - Would recommend to hold Eliquis - PO PPI BID - Check stool culture - Check c.diff - Continue supportive measures - Family requests no invasive procedures - Appreciate ongoing management by the primary service - GI to sign off. Thank you for allowing us to participate in the care of this patient. Please call with any acute changes, questions or concerns. Please see addendum below with additional recommendation from my supervising physician. Present on Admission?: Yes Supervising Physician Co-Signing Physician Notes Attending attestation I have seen, examined this patient, and agree with the findings and above by our mid-level provider CATHERINE Bourgeois. -Exam with alert female in no distress -No abdominal pain on exam -Multiple ecchymosis on all extremities. -Patient with history of progressing dementia and painless rectal bleeding with a similar presentation in 2017 at which time she underwent an EGD as well as Colonoscopy with concern for diverticular bleed. -Now having apparent painless rectal bleeding without hemodynamic compromise. No signs or suggestions of upper source. -Patient unable to provide history given her mental status and advanced dementia. -Discussed case with Daughter and does not want mother to have any invasive procedures including endoscopies. -Also relayed that mom is a DNR. -Likely Diveriticular in nature, would support with IVF carefully given cardiac disease, as needed blood transfusion, hold Eliquis, and bid PPI while here in hospital. -Given no plans for endoscopy, would be ok with diet. -Please call with any questions History of Present Illness Reason for Consultation: rectal bleeding Requesting Physician: Wilbur Attending Physician: Jolly Bowles, DO History of Present Illness 78 year old female with history of T2DM ,CKD, asthma, COPD, gastroparesis, HTN, dyslipidemia, c.diff colitis, PE and AFIB on Eliquis who presents from [facility] for evaluation of rectal bleeding. Pt was seen and evaluated, chart reviewed. She is awake and oriented to person but not oriented to place or time. History obtained from chart. Over the past month daughter notes there has been a decline in function. Less orietned, more combative. Has been having frequent UTI. Developed painless, rectal bleeding. BRB w/ clots. No melena. No UGI symptoms. No nausea, vomiting. Denies lightheadness, dizziness, CP, SOB. EGD 2017: Normal upper third of esophagus,middle third of esophagus and lower third of esophagus.-Widely patent Schatzki ring.-Small hiatus hernia.-Normal stomach.-Non-bleeding duodenal diverticulum.-No specimens collected. Colonoscopy 2017: hematin (altered blood/kpkjjk-bcdeyy-wzsl material) was found in the entire colon.Scattered small and large-mouthed diverticula were found in the entire colon.The terminal ileum appeared normal without blood clots Allergies Allergy/AdvReac Type Severity Reaction Status Date / Time codeine Allergy Unknown UNKNOWN Verified 01/14/19 08:19 aspirin AdvReac Intermediate (ULCER) Verified 01/14/19 08:19 venlafaxine AdvReac Intermediate DROWINESS/ Verified 01/14/19 08:19 CONFUSION cephalexin AdvReac Mild DROWSINESS, Verified 01/14/19 08:[address], UPSET STOMACH oxycodone AdvReac Mild n/v Verified 01/14/19 08:19 Home Medications Home Medications Medication Instructions Recorded Confirmed Type nitroglycerin [Nitrostat] 0.4 mg UT PRN PRN #0 btl 06/20/15 01/14/19 History omeprazole 20 mg PO DAILY #0 06/20/15 01/14/19 History solifenacin [Vesicare] 5 mg PO DAILY #0 tab 05/15/16 01/14/19 History lovastatin 80 mg PO HS #0 09/07/16 01/14/19 History ferrous sulfate 325 mg PO DAILY #0 01/06/17 01/14/19 History budesonide [Pulmicort] 0.5 mg NEB BID #120 05/10/17 01/14/19 History calcitriol 0.5 mcg PO DAILY #0 cap 09/24/17 01/14/19 History Lantus Solostar U-100 Insulin 27 units SC DAILY #0 pen 01/11/18 01/14/19 History Probiotic (S.boulardii) 250 mg PO BID #0 01/11/18 01/14/19 History acetaminophen 650 mg PO Q6 PRN #0 tab 01/11/18 01/14/19 History apixaban 2.5 mg PO BID #0 tab 01/11/18 01/14/19 History aspirin 81 mg PO DAILY #0 01/11/18 01/14/19 History prednisone 10 mg PO DAILY #0 tab 01/11/18 01/14/19 History ranitidine HCl 150 mg PO HS #0 tab 04/29/18 01/14/19 History alum-mag hydroxide-simeth [Maalox 30 ml PO Q6 PRN 09/23/18 01/14/19 History Maximum Strength] amlodipine 5 mg PO DAILY 09/23/18 01/14/19 History bisacodyl [Dulcolax (bisacodyl)] 10 mg CA DAILY PRN 09/23/18 01/14/19 History carvedilol [Coreg] 12.5 mg PO BID 09/23/18 01/14/19 History clonidine HCl 0.1 mg PO BID 09/23/18 01/14/19 History dakffkcq-tyxokwv-ggvwjsh 1 applic PO DAILY PRN 09/23/18 01/14/19 History [Insta-Glucose] glucagon (human recombinant) 1 mg IM DIRECTED PRN 09/23/18 01/14/19 History [Glucagon Emergency Kit (human)] guaifenesin 10 ml PO Q6 PRN 09/23/18 01/14/19 History hydralazine 50 mg PO TID 09/23/18 01/14/19 History ipratropium-albuterol 3 ml INHALATION Q6H PRN 09/23/18 01/14/19 History isosorbide mononitrate 60 mg PO DAILY 09/23/18 01/14/19 History magnesium hydroxide [Milk of 30 ml PO Q72H PRN 09/23/18 01/14/19 History Magnesia] phenyleph-min oil-petrolatum 1 applic CA Q12 PRN 09/23/18 01/14/19 History [Preparation H] polyethylene glycol 3350 [Miralax] 17 g PO Q2D 09/23/18 01/14/19 History salicylic acid [Selsun Blue 1 applic TOPICAL 2XWK 09/23/18 01/14/19 History Naturals] saliva substitute combo no.9 15 ml PO Q5H PRN 09/23/18 01/14/19 History [Biotene Dry Mouth Oral Rinse] sennosides-docusate sodium 1 tab PO BID 09/23/18 01/14/19 History [Senokot-S] sodium phosphates [Fleet Enema] 1 applic CA DAILY PRN 09/23/18 01/14/19 History Gentamicin Sulf 3% Solution 2 drp OPL TID 01/14/19 01/14/19 History insulin aspart U-100 [Novolog 1 sliding scale dose SUBCUT 01/14/19 01/14/19 History U-100 Insulin aspart] USEASDIRECTD insulin aspart U-100 [Novolog 4 unit SUBCUT AC 01/14/19 01/14/19 History U-100 Insulin aspart] lorazepam 0.5 mg SUBLINGUAL Q12 PRN 01/14/19 01/14/19 History nitrofurantoin monohyd/m-cryst 100 mg PO BID 01/14/19 01/14/19 History [Macrobid] ondansetron 4 mg PO Q8H PRN 01/14/19 01/14/19 History potassium chloride 30 meq PO DAILY 01/14/19 01/14/19 History torsemide 40 mg PO BID 01/14/19 01/14/19 History Patient History Medical History Anemia in stage 4 chronic kidney disease CKD (chronic kidney disease), stage IV COPD, moderate Chronic ischemic heart disease Esophageal reflux Gastroparesis History of pulmonary embolism Hyperparathyroidism long term current use of anticoagulant Morbid obesity Paroxysmal atrial fibrillation Type 2 diabetes mellitus ASCVD (arteriosclerotic cardiovascular disease) Bradycardia Chronic atrial fibrillation Diastolic heart failure secondary to hypertension Dyslipidemia HTN, goal below 130/80 Surgical History History of left hip replacement History of right oophorectomy Family History Mother , Cervical cancer No problems noted. Father , Alcoholic No problems noted. Brother , Testicular cancer No problems noted. Social History Preferred Language: Marshallese Communication Ability: + c Communication Ability Comment: baseline dementia Compass Operator Required: No Beliefs That Will Affect Care: None Current Living Situation: Group Home Other Information That Helps Us Care for You: No Feels Safe at Home: Yes Safety Concerns: Feels Safe At This Time Smoking Status: Former smoker Cigarettes Per Day: 20 Do You Dip or Chew Tobacco: No Smoking End Date: 1995 Second Hand Exposure: No Tobacco Cessation Education Requested by Patient: No Hx Alcohol Use: No Hx Substance Use: No Review of Systems Constitutional: no fever, no chills and no anorexia Respiratory: no cough, no dyspnea and no wheezing Cardiovascular: no chest pain, no radiating jaw, neck or arm pain and no dyspnea on exertion Gastrointestinal: no abdominal pain, no vomiting, no hematemesis and no melena Physical Exam Constitutional: well developed, well nourished and + obese Neck: trachea midline Respiratory: normal respiratory effort, lungs clear to auscultation Cardiovascular: Rate/Rhythm: regular rate and regular rhythm Heart Sounds: no click, no gallop and no cardiac rub Gastrointestinal (Abdomen): normal bowel sounds, soft, nontender, no hepatosplenomegaly Skin: no rashes, warm and dry Results & Data Vital Signs (Past 12 Hours) Vital Signs Temp Pulse Pulse Resp BP BP Pulse Ox 01/14/19 13:26 87 23 116/94 99 01/14/19 11:50 84 22 142/68 H 99 01/14/19 09:39 80 24 169/91 H 99 01/14/19 07:43 36.4 C L 74 26 H 183/90 H 100 Laboratory Results 01/14/19 01/14/19 01/14/19 Range/Units 14:23 14:23 14:23 WBC (4.8-10.8) K/uL RBC (4.2-5.4) M/uL Hgb 9.3 L (12.0-16.0) g/dL Hct 30.0 L (37-47) % MCV (80-100) fL MCH (25-34) pg MCHC (32-36) g/dL RDW Std Deviation (36.4-46.3) fL RDW Coeff of Eduardo (11.5-14.5) % Plt Count (130-400) K/uL MPV (7.4-10.4) fL Immature Gran % (Auto) % Neut % (Auto) % Lymph % (Auto) % [place] % (Auto) % Eos % (Auto) % Baso % (Auto) % Immature Gran # (Auto) (0.00-0.02) K/uL Neut # (Auto) (1.4-6.5) K/uL Lymph # (Auto) (1.2-3.4) K/uL [place] # (Auto) (0.11-0.59) K/uL Eos # (Auto) (0-0.5) K/uL Baso # (Auto) (0-0.2) K/uL PT (9.0-12.0) Seconds INR (0.9-1.1) APTT (21.0-31.0) Seconds PTT Ratio Sodium Pending (136-145) mmol/L Potassium Pending (3.5-5.1) mmol/L Chloride Pending (98-107) mmol/L Carbon Dioxide Pending (21-32) mmol/L Anion Gap Pending (3-11) BUN Pending (7-18) mg/dl Creatinine Pending (0.6-1.2) mg/dl Est Cr Clr Drug Dosing Pending ml/min Est GFR ( Amer) Pending Est GFR (Non-Af Amer) Pending BUN/Creatinine Ratio Pending (10-20) Glucose Pending (70-99) mg/dl Lactate Pending Calcium Pending (8.5-10.1) mg/dl Total Bilirubin (0.2-1) mg/dl AST (15-37) U/L ALT (12-78) U/L Alkaline Phosphatase (45-117) U/L Total Protein (6.4-8.2) gm/dl Albumin (3.4-5.0) gm/dl Globulin (2.5-4.0) gm/dl Albumin/Globulin Ratio (0.9-2) Blood Type Antibody Screen 01/14/19 01/14/19 01/14/19 Range/Units 08:38 08:37 08:37 WBC (4.8-10.8) K/uL RBC (4.2-5.4) M/uL Hgb (12.0-16.0) g/dL Hct (37-47) % MCV (80-100) fL MCH (25-34) pg MCHC (32-36) g/dL RDW Std Deviation (36.4-46.3) fL RDW Coeff of Eduardo (11.5-14.5) % Plt Count (130-400) K/uL MPV (7.4-10.4) fL Immature Gran % (Auto) % Neut % (Auto) % Lymph % (Auto) % [place] % (Auto) % Eos % (Auto) % Baso % (Auto) % Immature Gran # (Auto) (0.00-0.02) K/uL Neut # (Auto) (1.4-6.5) K/uL Lymph # (Auto) (1.2-3.4) K/uL [place] # (Auto) (0.11-0.59) K/uL Eos # (Auto) (0-0.5) K/uL Baso # (Auto) (0-0.2) K/uL PT 11.0 (9.0-12.0) Seconds INR 1.1 (0.9-1.1) APTT 22.8 (21.0-31.0) Seconds PTT Ratio 0.8 Sodium 150 H (136-145) mmol/L Potassium 3.6 D (3.5-5.1) mmol/L Chloride 112 H (98-107) mmol/L Carbon Dioxide 32 (21-32) mmol/L Anion Gap 7.0 (3-11) BUN 66 H (7-18) mg/dl Creatinine 2.92 H (0.6-1.2) mg/dl Est Cr Clr Drug Dosing 14.6 ml/min Est GFR ( Amer) 16.9 Est GFR (Non-Af Amer) 14.6 BUN/Creatinine Ratio 22.6 H (10-20) Glucose 104 H (70-99) mg/dl Lactate Calcium 9.4 (8.5-10.1) mg/dl Total Bilirubin 0.7 (0.2-1) mg/dl AST 14 L (15-37) U/L ALT 18 (12-78) U/L Alkaline Phosphatase 66 (45-117) U/L Total Protein 6.3 L (6.4-8.2) gm/dl Albumin 3.0 L (3.4-5.0) gm/dl Globulin 3.3 (2.5-4.0) gm/dl Albumin/Globulin Ratio 0.9 (0.9-2) Blood Type A Positive Antibody Screen NEGATIVE 01/14/19 Range/Units 08:36 WBC 5.53 (4.8-10.8) K/uL RBC 3.59 L (4.2-5.4) M/uL Hgb 10.9 L (12.0-16.0) g/dL Hct 34.7 L (37-47) % MCV 96.7 (80-100) fL MCH 30.4 (25-34) pg MCHC 31.4 L (32-36) g/dL RDW Std Deviation 49.7 H (36.4-46.3) fL RDW Coeff of Eduardo 14.1 (11.5-14.5) % Plt Count 91 L (130-400) K/uL MPV 12.0 H (7.4-10.4) fL Immature Gran % (Auto) 0.5 % Neut % (Auto) 59.4 % Lymph % (Auto) 29.8 % [place] % (Auto) 8.3 % Eos % (Auto) 1.8 % Baso % (Auto) 0.2 % Immature Gran # (Auto) 0.03 H (0.00-0.02) K/uL Neut # (Auto) 3.28 (1.4-6.5) K/uL Lymph # (Auto) 1.65 (1.2-3.4) K/uL [place] # (Auto) 0.46 (0.11-0.59) K/uL Eos # (Auto) 0.10 (0-0.5) K/uL Baso # (Auto) 0.01 (0-0.2) K/uL PT (9.0-12.0) Seconds INR (0.9-1.1) APTT (21.0-31.0) Seconds PTT Ratio Sodium (136-145) mmol/L Potassium (3.5-5.1) mmol/L Chloride (98-107) mmol/L Carbon Dioxide (21-32) mmol/L Anion Gap (3-11) BUN (7-18) mg/dl Creatinine (0.6-1.2) mg/dl Est Cr Clr Drug Dosing ml/min Est GFR ( Amer) Est GFR (Non-Af Amer) BUN/Creatinine Ratio (10-20) Glucose (70-99) mg/dl Lactate Calcium (8.5-10.1) mg/dl Total Bilirubin (0.2-1) mg/dl AST (15-37) U/L ALT (12-78) U/L Alkaline Phosphatase (45-117) U/L Total Protein (6.4-8.2) gm/dl Albumin (3.4-5.0) gm/dl Globulin (2.5-4.0) gm/dl Albumin/Globulin Ratio (0.9-2) Blood Type Antibody Screen
[2019-01-14 14:37] LABS: Hemoglobin 9.3 g/dL (12.0-16.0)
[2019-01-14 14:58] LABS: BUN Creatinine Ratio 23.3 (10-20); Calcium 8.5 mg/dl (8.5-10.1); Creatinine Clr Calc Pharmacy 15.5 ml/min; Est GFR (African American) 18.2; Est GFR (Non-African American) 15.7; Potassium 3.4 mmol/L (3.5-5.1)
[2019-01-14] MEDS: DEXTROSE 5% 1,000 ML IV SCH ×3 (15:00→23:03)
--- NOTE | 2019-01-14 15:34 | XRay Report ---
XR abdomen 2V w PA chest CLINICAL HISTORY: 78 years-old Female presenting with abd pain, +GIB, h/o HF and giving IVF. TECHNIQUE: PA view of the chest and supine and upright views of the abdomen were obtained. COMPARISON: None. FINDINGS: Atherosclerosis of aortic arch. Cardiac silhouette enlarged. Lungs and pleural spaces clear. Moderate stool burden predominantly in the right colon. Nonobstructive bowel gas pattern. No gross pn eumoperitoneum. Allowing for bowel gas and stool, no calcifications to suggest nephrolithiasis. Extensive atheroscler otic calcification. Degenerative changes of the spine. Total left hip arthroplasty. Osteopenia. IMPRESSION: 1. Cardiomegaly. No other convincing evidence of acute cardiopulmonary disease. 2. Findings suggest constipation. Electronically signed by: Roel Dorman M.D. 01/14/2019 3:33 PM
[2019-01-14] MEDS: LORazepam 0.5 MG TAB SL PRN (16:35)
[2019-01-14] MEDS: TRIMETHOPRIM/POLYMYXIN B OPB SCH ×2 (16:39→18:09)
[2019-01-14] MEDS ORDERED: LIDOCAINE HCL 1% 20 ML VIAL ONE (17:14)
--- NOTE | 2019-01-14 17:37 | Procedure Note ---
Procedure Note Date of Service January 14, 2019 Note I was asked by Dr. Bowles to place a central line in this 78-year-old female who presents with GI bleeding and poor IV access, the patient is totally demented, consent obtained from the daughter via Dr. Bowles, risk and benefit explained d etails, agreed to the procedure. The patient is incapacitated to make any decision. Due to her dementia. The patient was placed in supine position, initially under strict sterile field, using Seldinger technique, the posterior approach was unsuccessful, using ultrasound, the anterior approach was successful, the patient injected with total of 15 mL of lidocaine due to topical pain, using Seldinger technique, no scalpel, the dilator was used, the line was placed to 15 cm, all ports were flushed with normal saline, secured with 2 sutures, covered with surgical dressing, tolerated the procedure well, no immediate complication, chest x-rays pending. Thank you Coding
[2019-01-14] MEDS: INSULIN ASPART 100 UNITS/ML 3 ML PEN SC SCH ×2 (17:39→21:35)
--- NOTE | 2019-01-14 17:53 | XRay Report ---
XR chest 1V portable HISTORY: Status post central line placement. COMPARISON: Chest 01/14/2019. FINDINGS: No pneumothorax. Trace left pleural effusion. No evidence for pulmonary edema. The heart re alvin mildly enlarged. No new focal lung consolidations to suggest pneumonia. Interval placement of a right central venous catheter with the tip terminating at the expected location of the distal SVC. IMPRESSION: Right central venous catheter terminates at the expected location of the distal SVC. Electronically signed by: Raghavendra Cisneros M.D. 01/14/2019 5:51 PM
[2019-01-14] MEDS: BUDESONIDE 0.5 MG/2 ML VIAL (PULMICORT) NEB SCH (19:28)
[2019-01-14] MEDS ORDERED: INSULIN GLARGINE SOLOSTAR 100 UNITS/ML 3 ML PEN SC SCH (21:00)
[2019-01-14] MEDS ORDERED: BUDESONIDE 0.5 MG/2 ML VIAL (PULMICORT) NEB SCH (21:00)
[2019-01-14] MEDS: MICONAZOLE NITRATE POWDER 43 GM EXT SCH (21:37)
[2019-01-14 21:40] LABS: BUN Creatinine Ratio 23.5 (10-20); Calcium 7.7 mg/dl (8.5-10.1); Creatinine Clr Calc Pharmacy 17.3 ml/min; Est GFR (African American) 20.8; Est GFR (Non-African American) 17.9; Potassium 2.9 mmol/L (3.5-5.1)
[2019-01-14 22:23] LABS: Hematocrit (blood only) 21.2 % (37-47); Hemoglobin 6.9 g/dL (12.0-16.0)
[2019-01-14] MEDS ORDERED: SODIUM CHLORIDE 0.9% 250 ML IV PRN (22:49)
[2019-01-14] MEDS ORDERED: PANTOprazole 80 MG in DEXTROSE 5% 100 ML IV ONE (23:15)
[2019-01-14] MEDS: POTASSIUM CHLORIDE / WTR 20 MEQ/100 ML PLCT IV SCH (23:18)
[2019-01-14] MEDS: PANTOprazole 40 MG in DEXTROSE 5% 100 ML IV SCH (23:48)
[2019-01-15] MEDS: POTASSIUM CHLORIDE / WTR 20 MEQ/100 ML PLCT IV SCH ×2 (01:12→03:52)
[2019-01-15] MEDS: TRIMETHOPRIM/POLYMYXIN B OPB SCH ×5 (01:13→23:58)
[2019-01-15] MEDS: PANTOprazole 40 MG in DEXTROSE 5% 100 ML IV SCH ×5 (04:15→23:58)
[2019-01-15] MEDS: BUDESONIDE 0.5 MG/2 ML VIAL (PULMICORT) NEB SCH ×2 (07:19→19:40)
[2019-01-15] MEDS: INSULIN ASPART 100 UNITS/ML 3 ML PEN SC SCH ×3 (07:30→17:57)
[2019-01-15 07:41] LABS: Hematocrit (blood only) 29.4 % (37-47); Mean Corpuscular Volume 90.5 fL (80-100); Mean Platelet Volume 11.4 fL (7.4-10.4); Platelet Count 68 K/uL (130-400); RDW Coefficient of Variation 15.9 % (11.5-14.5); RDW Standard Deviation 52.3 fL (36.4-46.3); Red Blood Count 3.25 M/uL (4.2-5.4); White Blood Count 5.19 K/uL (4.8-10.8)
[2019-01-15 08:07] LABS: BUN Creatinine Ratio 22.5 (10-20); Calcium 7.8 mg/dl (8.5-10.1); Creatinine Clr Calc Pharmacy 18.5 ml/min; Est GFR (African American) 21.9; Est GFR (Non-African American) 18.9; Magnesium 2.2 mg/dl (1.8-2.4); Potassium 3.7 mmol/L (3.5-5.1)
[2019-01-15] MEDS: predniSONE 10 MG TABLET PO SCH (09:03)
[2019-01-15] MEDS: CALCITRIOL 0.25 MCG CAPSULE PO SCH (09:04)
[2019-01-15] MEDS: INSULIN GLARGINE SOLOSTAR 100 UNITS/ML 3 ML PEN SC SCH ×2 (09:04→20:38)
[2019-01-15] MEDS: ISOSORBIDE MONO EXTENDED REL 60 MG TABCR PO SCH (09:04)
[2019-01-15] MEDS: MICONAZOLE NITRATE POWDER 43 GM EXT SCH ×2 (09:05→19:21)
[2019-01-15 09:26] LABS: Estimated Average Glucose 120 mg/dl; Hemoglobin A1C 5.8 % (4.5-5.6)
--- NOTE | 2019-01-15 11:22 | Hospitalist Progress Note ---
Date of Service January 15, 2019 Assessment & Plan (1) GI (gastrointestinal bleed): Eliquis held on arrival, hematochezia has slowed down. Denies abdominal pain. H/H appropriately responded to 3 Units pRBCs overnight. BB, diuretics, ASA held. Gastro seeing her and possible colonoscopy depending on conversation with the patient's POA regarding how aggressive to be. Overall, she is clinically improved and appears less agitated although still disoriented. Clears for now as I want to liberalize her fluid intake in the setting of hypernatremia. (2) Acute blood loss anemia: as above. (3) Hypernatremia: Diuretics held. Mucous membranes still very dry. NSS yesterday followed by D5W for a few hours until she received the blood. 3 units of blood given overnight. Lungs are clear to auscultation. Still demonstrates hyper natremia on lab work. Restart D5W at 150 cc an hour until sodium in normal range. Repeat BMP later this evening. Also liberalize diet to include clear liquids and encourage p.o. intake, specifically with free water. (4) KARLEE (acute kidney injury): Stage IV CKD at baseline. KARLEE resolved to baseline after volume resuscitation overnight. (5) Atrial fibrillation: held Eliquis, normal rate (6) History of coronary artery disease: held ASA (PCI in 1999), held BB in acute bleed, cont Imdur, cont statin (7) COPD (chronic obstructive pulmonary disease): chronic, stable, no wheezing. Cont 3L oxygen qHS and home inhaler therapy. (8) DMII (diabetes mellitus, type 2): ISS with glargine at 50% dose while NPO. (9) Morbid obesity: (10) DVT prophylaxis: chemoprophy contraindicated in setting of bleed. SCDs Full Code Dispo-cont PCU/tele monitoring Jolly Bowles DO [facility] Hospitalist Subjective Patient appears much more calm and less agitated than yesterday. She reports no abdominal pain and that her bleeding has slowed down overnight. She cannot tell me where she is or what the date is but can verbalize why she is here. She knows her name. She continues to report a sense of urinary urgency and was recently treated with a urinary tract infection as outpatient with Macrobid. She otherwise denies any symptoms at this time. Review of Systems Review of Systems: Unobtainable due to cognitive status Physical Exam Physical Exam: CONSTITUTIONAL: obese, vitals as above, generally well appearing,no acute distress. Patient is calm and restraints were removed. EYES: PERRL, +conjunctival discharge and crusting bilaterally L>R which has improved, no scleral icterus ENT: oropharynx clear, mucous membranes are dry NECK: Right IJ in place. RESPIRATORY: clear to auscultation bilaterally, no crackles, rales or wheezes, normal respiratory effort CARDIOVASCULAR: regular rate and irregular rhythm, S1 and 2 heard without murmurs, gallops or rubs, no JVD GASTROINTESTINAL: normal bowel sounds, soft, nontender, nondistended MUSCULOSKELETAL: head is normocephalic and atraumatic, generalized weakness but able to sit up in bed without assistance. SKIN: warm and dry, some bruising on R hand NEUROLOGIC: No facial palsy, no dysarthria. CN 2-12 grossly intact, normal speech PSYCHIATRIC: alert cooperative and oriented to person and place but not time. Results & Data Vital Signs (Past 12 Hours) Vital Signs Temp Pulse Pulse Resp BP BP Pulse Ox 01/15/19 07:19 90 18 100 01/15/19 06:57 36.5 C 98 H 20 166/73 H 100 01/15/19 06:09 36.4 C L 103 H 20 174/104 H 99 01/15/19 05:45 36.6 C 90 20 165/91 H 98 01/15/19 04:45 36.6 C 92 H 18 135/90 100 01/15/19 04:31 36.4 C L 88 18 155/73 H 100 01/15/19 04:15 36.4 C L 84 18 122/85 100 01/15/19 04:00 36.7 C 101 H 18 184/80 H 100 01/15/19 03:46 36.6 C 102 H 20 189/76 H 100 01/15/19 03:45 36.6 C 102 H 20 189/76 H 100 01/15/19 03:10 36.9 C 100 H 18 161/77 H 100 01/15/19 02:40 36.9 C 94 H 20 129/83 100 01/15/19 02:10 36.9 C 99 H 20 118/69 100 01/15/19 02:00 36.9 C 99 H 20 146/54 H 05/18/19 01:58 36.8 C 94 H 20 164/89 H 100 01/15/19 01:55 36.9 C 99 H 20 146/54 H 100 01/15/19 01:54 36.5 C 104 H 20 179/74 H 100 01/15/19 01:40 36.5 C 104 H 20 179/74 H 01/15/19 01:39 36.5 C 102 H 22 179/74 H 100 01/15/19 01:25 37.0 C 95 H 20 143/83 H 100 01/15/19 00:55 36.9 C 106 H 20 135/67 01/15/19 00:41 91 H 01/15/19 00:25 36.7 C 101 H 22 116/71 100 01/15/19 00:10 36.7 C 93 H 20 93/69 L 100 01/14/19 23:54 36.9 C 99 H 22 146/54 H Laboratory Results Short CBC 01/14/19 01/14/19 01/15/19 Range/Units 14:23 21:06 07:19 WBC 5.19 (4.8-10.8) K/uL Hgb 9.3 L 6.9 L* 10.0 L D (12.0-16.0) g/dL Hct 30.0 L 21.2 L 29.4 L (37-47) % Plt Count 68 L (130-400) K/uL BMP 01/14/19 01/14/19 01/15/19 14:23 21:06 07:19 Sodium 149 H 149 H 148 H Potassium 3.4 L 2.9 L 3.7 D Chloride 113 H 115 H 117 H Carbon Dioxide 31 29 26 BUN 64 H 58 H 53 H Creatinine 2.74 H 2.46 H 2.35 H Glucose 133 H 167 H 141 H Calcium 8.5 7.7 L 7.8 L Medications Administered Current Inpatient Medications Acetaminophen (Tylenol) 650 mg PO Q4H PRN PRN Reason: pain/fever Stop: 02/13/19 13:54 Albuterol (Duoneb) 3 ml INH Q6H PRN PRN Reason: Shortness Of Breath Or Wheezing Stop: 02/13/19 13:42 Budesonide (Pulmicort Respules) 0.5 mg NEB BIDR ANA CRISTINA Stop: 02/13/19 19:59 Last Admin: 01/15/19 07:19 Dose: 0.5 mg Documented by: Calcitriol (Racaltrol) 0.5 mcg PO DAILY [facility] Stop: 02/14/19 08:59 Last Admin: 01/15/19 09:04 Dose: 0.5 mcg Documented by: Dextrose (Dextrose 50%) 25 - 50 ml IV UD PRN; Protocol PRN Reason: Hypoglycemia Protocol Stop: 02/13/19 13:54 Glucagon (Glucagen) 1 mg SQ UD PRN; Protocol PRN Reason: Hypoglycemia Protocol Stop: 02/13/19 13:54 Glucose (Glucose 40%) 15 - 30 gm PO UD PRN; Protocol PRN Reason: Hypoglycemia Protocol Stop: 02/13/19 13:54 Glucose (Dex4 Glucose) 4 - 8 tabs PO UD PRN; Protocol PRN Reason: Hypoglycemia Protocol Stop: 02/13/19 13:54 Heparin Sodium (Beef Lung) (Heparin Sod 10 Unit/Ml Flush) 5 ml FLUSH PRN PRN PRN Reason: Flush Stop: 02/14/19 02:34 Pantoprazole Sodium 40 mg/ (Dextrose) 100 mls @ 20 mls/hr IV Q5H [facility] Stop: 02/13/19 23:29 Last Admin: 01/15/19 09:03 Dose: 20 mls/hr Documented by: Dextrose (D5w) 1,000 mls @ 150 mls/hr IV .Q6H40M [facility] Stop: 02/14/19 11:29 Insulin Aspart (Novolog Flexpen) 0 units SC Q6 ANA CRISTINA Stop: 02/14/19 11:59 Insulin Glargine (Lantus Solostar Pen) 7 units SC BID [facility] Stop: 02/13/19 20:59 Last Admin: 01/15/19 09:04 Dose: 7 units Documented by: Isosorbide Mononitrate (Imdur Extended Rel) 60 mg PO DAILY [facility] Stop: 02/14/19 08:59 Last Admin: 01/15/19 09:04 Dose: 60 mg Documented by: Lorazepam (Ativan) 0.5 mg SL Q12 PRN PRN Reason: anxiousness Stop: 02/13/19 13:42 Last Admin: 01/14/19 16:35 Dose: 0.5 mg Documented by: Lovastatin (Mevacor) 80 mg PO HS [facility] Stop: 02/13/19 20:59 Miconazole Nitrate (Desenex) 1 appln EXT BID ANA CRISTINA Stop: 02/13/19 20:59 Last Admin: 01/15/19 09:05 Dose: 1 appln Documented by: Miscellaneous (Carbohydrates For Hypoglycemia) 15 - 30 gm PO UD PRN PRN Reason: Hypoglycemia Treatment Stop: 02/13/19 13:54 Phenazopyridine HCl (Pyridium) 200 mg PO TID [facility] Stop: 01/17/19 13:59 Polymyxin/Trimethoprim Sulfate (Polytrim) 1 drops OPB Q6 ANA CRISTINA Stop: 02/13/19 15:29 Last Admin: 01/15/19 06:00 Dose: 1 drops Documented by: Prednisone (Prednisone) 10 mg PO DAILY [facility] Stop: 02/14/19 08:59 Last Admin: 01/15/19 09:03 Dose: 10 mg Documented by: Ranitidine HCl (Zantac) 150 mg PO HS [facility] Stop: 02/13/19 20:59 Last Admin: 01/14/19 21:39 Dose: 150 mg Documented by: (1) GI (gastrointestinal bleed) GI bleed type/associated pathology: unspecified gastrointestinal hemorrhage type Qualified Code(s): K92.2 - Gastrointestinal hemorrhage, unspecified
--- NOTE | 2019-01-15 11:45 | Gastroenterology Progress Note ---
Date of Service January 15, 2019 Assessment & Plan (1) Rectal bleedin78 year old female who presents with painless rectal bleeding (BRB w/ clots) wtih a history of diverticular bleed. Family noted she is a DNR and requests to avoid all invasive procedures, attempted to contact daughter, unfo rtunately no answer thus far and will re-clarify. Again, very characteristic of likely diverticular bleed, stable hemodynamics. May just need blood thinner being held as only intervention. - Transfuse PRN per protocol - Would recommend to hold Eliquis - Ok for IV PPI given conservative goal of family - Check stool culture - C-diff is negative - Continue supportive measures - Family requests no invasive procedures - Appreciate ongoing management by the primary service - Previously Discussed case with Daughter and does not want mother to have any invasive procedures including endoscopies. - IF family desires endoscopy or if hemodynamics change, then would start colonoscopy preparation after discussion - Will follow Subjective Clinically patient remains stable, no changes in hemodynamics. Decline in Hb to 7, recieved 3 units of PRBC's and had an appropriate response. No bleeding since overnight. Physical Exam Physical Exam: Awake, alert, not oriented Now in restraints no mgr Bibasilar crackles Multiple ecchymosis on ext nabs/soft/nt/nd Results & Data Vital Signs (Past 12 Hours) Vital Signs Temp Pulse Pulse Resp BP BP Pulse Ox 01/15/19 11:25 36.6 C 90 16 141/74 H 100 01/15/19 07:19 90 18 100 01/15/19 06:57 36.5 C 98 H 20 166/73 H 100 01/15/19 06:09 36.4 C L 103 H 20 174/104 H 99 01/15/19 05:45 36.6 C 90 20 165/91 H 98 01/15/19 04:45 36.6 C 92 H 18 135/90 100 01/15/19 04:31 36.4 C L 88 18 155/73 H 100 01/15/19 04:15 36.4 C L 84 18 122/85 100 01/15/19 04:00 36.7 C 101 H 18 184/80 H 100 01/15/19 03:46 36.6 C 102 H 20 189/76 H 100 01/15/19 03:45 36.6 C 102 H 20 189/76 H 100 01/15/19 03:10 36.9 C 100 H 18 161/77 H 01/15/19 02:40 36.9 C 94 H 20 129/83 01/15/19 02:10 36.9 C 99 H 20 118/69 01/15/19 02:00 36.9 C 99 H 20 146/54 H 01/15/19 01:58 36.8 C 94 H 20 164/89 H 01/15/19 01:55 36.9 C 99 H 20 146/54 H 01/15/19 01:54 36.5 C 104 H 20 179/74 H 01/15/19 01:40 36.5 C 104 H 20 179/74 H 01/15/19 01:39 36.5 C 102 H 22 179/74 H 01/15/19 01:25 37.0 C 95 H 20 143/83 H 01/15/19 00:55 36.9 C 106 H 20 135/67 01/15/19 00:41 91 H 01/15/19 00:25 36.7 C 101 H 22 116/71 01/15/19 00:10 36.7 C 93 H 20 93/69 L 01/14/19 23:54 36.9 C 99 H 22 146/54 H
[2019-01-15] MEDS: DEXTROSE 5% 1,000 ML IV SCH ×3 (12:42→23:58)
[2019-01-15 13:37] LABS: Appearance Urine Clear (Clear); Bacteria Urine Automated 1+ (Negative); Bilirubin Urine Negative (Negative); Blood Urine Negative (Negative); Color Urine Yellow; Glucose Urine UA 2+ (Negative); Ketones Urine Negative (Negative); Leukocyte Esterase Urine 2+ (Negative); Nitrite Urine Negative (Negative); Protein Urine Trace (Negative); RBC Urine Automated 0-4 /hpf (0-4); Specific Gravity Urine 1.018 (1.000-1.030); Urobilinogen Urine Negative (Negative)
[2019-01-15] MEDS: PHENAZOPYRIDINE HCL 200 MG TAB PO SCH ×2 (14:10→19:24)
[2019-01-15] MEDS: cefTRIAXone SODIUM 1,000 MG in DEXTROSE 5% 50 ML IV SCH (16:30)
[2019-01-15 19:31] LABS: Hematocrit (blood only) 28.4 % (37-47); Hemoglobin 9.4 g/dL (12.0-16.0)
[2019-01-15 19:53] LABS: BUN Creatinine Ratio 19.1 (10-20); Calcium 7.6 mg/dl (8.5-10.1); Creatinine Clr Calc Pharmacy 18.7 ml/min; Est GFR (African American) 22.2; Est GFR (Non-African American) 19.1; Potassium 3.5 mmol/L (3.5-5.1)
[2019-01-15] MEDS ORDERED: INSULIN ASPART 100 UNITS/ML 3 ML PEN SC ONE (22:15)
[2019-01-16] MEDS: INSULIN ASPART 100 UNITS/ML 3 ML PEN SC SCH ×5 (00:10→21:19)
[2019-01-16] MEDS ORDERED: cloNIDine HCl 0.1 MG TAB PO ONE (02:55)
[2019-01-16] MEDS: PANTOprazole 40 MG in DEXTROSE 5% 100 ML IV SCH ×5 (04:35→19:59)
[2019-01-16] MEDS: TRIMETHOPRIM/POLYMYXIN B OPB SCH ×3 (05:48→18:20)
[2019-01-16 06:23] LABS: Hematocrit (blood only) 28.2 % (37-47); Hemoglobin 9.6 g/dL (12.0-16.0); Mean Corpuscular Volume 89.2 fL (80-100); RDW Coefficient of Variation 15.6 % (11.5-14.5); RDW Standard Deviation 50.4 fL (36.4-46.3); Red Blood Count 3.16 M/uL (4.2-5.4); White Blood Count 4.63 K/uL (4.8-10.8)
[2019-01-16 06:44] LABS: Mean Platelet Volume 11.6 fL (7.4-10.4); Platelet Count 65 K/uL (130-400)
[2019-01-16 06:45] LABS: Platelet Estimate Decreased (Normal)
[2019-01-16 06:47] LABS: BUN Creatinine Ratio 18.5 (10-20); Calcium 7.8 mg/dl (8.5-10.1); Creatinine Clr Calc Pharmacy 20.9 ml/min; Est GFR (African American) 25.1; Est GFR (Non-African American) 21.7; Magnesium 2.1 mg/dl (1.8-2.4); Potassium 3.1 mmol/L (3.5-5.1)
[2019-01-16] MEDS: BUDESONIDE 0.5 MG/2 ML VIAL (PULMICORT) NEB SCH ×2 (07:11→19:09)
--- NOTE | 2019-01-16 07:54 | Gastroenterology Progress Note ---
Date of Service January 16, 2019 Assessment & Plan (1) Rectal bleedin78 year old female who presents with painless rectal bleeding (BRB w/ clots) wtih a history of diverticular bleed. Family noted she is a DNR and requests to avoid all invasive procedures. Very characteristic of likely diverticular bleed, stable hemodynamics. May just need blood thinner being held as only intervention. - Transfuse PRN per protocol - Continue to hold Eliquis - Ok for IV PPI given conservative goal of family -Follow stool culture - C-diff is negative - Continue supportive measures - Family requests no invasive procedures - Appreciate ongoing management by the primary service. - IF family desires endoscopy or if hemodynamics change, then would start colonoscopy preparation after discussion - Will follow Subjective Pulled out her central line last evening, no documented bowel movements in the last 24 hours hemoglobin has improved. Hb stable since transfusion Hemodynamically has been quite robust and has had necessitated prn clonodine overnight. Discussed with daughter goals of care yesterday, reiterated no procedures. Review of Systems Review of Systems: Unobtainable due to mental health condition Physical Exam Physical Exam: Awake alert no apparent distress overall appearances have improved including color and mental status seems to be a bit better this morning however obviously had irritability yesterday pulling on her central line Heart is regular Lungs are clear Abdomen soft nontender Roll patient over in bed with no signs of bleeding and pad Results & Data Vital Signs (Past 12 Hours) Vital Signs Temp Pulse Resp BP BP Pulse Ox 01/16/19 07:17 36.7 C 85 24 132/85 100 01/16/19 07:11 94 H 18 98 01/16/19 03:15 36.8 C 91 H 18 205/81 H 100 01/16/19 02:46 185/64 H 01/15/19 23:39 36.8 C 95 H 22 204/83 H 100
[2019-01-16] MEDS: MICONAZOLE NITRATE POWDER 43 GM EXT SCH ×2 (08:11→19:52)
[2019-01-16] MEDS: POTASSIUM CHLORIDE 20 MEQ/15 ML UDC PO SCH ×2 (08:11→13:11)
[2019-01-16] MEDS: INSULIN GLARGINE SOLOSTAR 100 UNITS/ML 3 ML PEN SC SCH ×2 (08:12→21:19)
[2019-01-16] MEDS: PHENAZOPYRIDINE HCL 200 MG TAB PO SCH ×3 (08:12→19:52)
[2019-01-16] MEDS: CALCITRIOL 0.25 MCG CAPSULE PO SCH (08:37)
[2019-01-16] MEDS: predniSONE 10 MG TABLET PO SCH (08:37)
[2019-01-16] MEDS: ISOSORBIDE MONO EXTENDED REL 60 MG TABCR PO SCH (08:38)
--- NOTE | 2019-01-16 10:51 | Hospitalist Progress Note ---
Date of Service January 16, 2019 Assessment & Plan (1) Encephalopathy: recent infection and acute blood loss anemia-patient is recovering tfrom these insults. (2) GI (gastrointestinal bleed): Likely LGIB, held Eliquis, BB, diuretics, ASA. Defer endoscopy to GI. Doing well with clear liquids, will advance diet. (3) Acute blood loss anemia: as above. (4) Hypernatremia: resolved to normal range (5) KALREE (acute kidney injury): Stage IV CKD at baseline. KARLEE resolved to baseline after volume resuscitation overnight. (6) Atrial fibrillation: held Eliquis, normal rate (7) History of coronary artery disease: held ASA (PCI in 1999), held BB in acute bleed, cont Imdur, cont statin (8) COPD (chronic obstructive pulmonary disease): chronic, stable, no wheezing. Cont 3L oxygen qHS and home inhaler therapy. (9) DMII (diabetes mellitus, type 2): ISS with glargine at 50% dose while NPO. (10) Morbid obesity: (11) DVT prophylaxis: chemoprophy contraindicated in setting of bleed. SCDs Full Code Dispo-cont PCU/tele monitoring Jolly Bowles DO [facility] Hospitalist Subjective doing well she is confused Review of Systems Review of Systems: Unobtainable due to cognitive status Results & Data Vital Signs (Past 12 Hours) Vital Signs Temp Pulse Resp BP BP Pulse Ox 01/16/19 10:48 36.9 C 76 20 162/76 H 100 01/16/19 07:17 36.7 C 85 24 132/85 100 01/16/19 07:11 94 H 18 98 01/16/19 03:15 36.8 C 91 H 18 205/81 H 100 01/16/19 02:46 185/64 H 01/15/19 23:39 36.8 C 95 H 22 204/83 H 100 Laboratory Results Short CBC 01/15/19 01/16/19 Range/Units 19:10 06:00 WBC 4.63 L (4.8-10.8) K/uL Hgb 9.4 L 9.6 L (12.0-16.0) g/dL Hct 28.4 L 28.2 L (37-47) % Plt Count 65 L (130-400) K/uL BMP 01/15/19 01/16/19 19:10 06:00 Sodium 138 D 141 Potassium 3.5 3.1 L Chloride 107 111 H Carbon Dioxide 25 25 BUN 45 H 39 H Creatinine 2.33 H 2.10 H Glucose 241 H 120 H Calcium 7.6 L 7.8 L Urine 01/15/19 Range/Units 12:50 Urine Color Yellow Urine Appearance Clear (Clear) Urine pH 6.0 (4.5-7.5) Ur Specific [place] 1.018 (1.000-1.030) Urine Protein Trace H (Negative) Urine Glucose (UA) 2+ H (Negative) Medications Administered Current Inpatient Medications Acetaminophen (Tylenol) 650 mg PO Q4H PRN PRN Reason: pain/fever Stop: 02/13/19 13:54 Albuterol (Duoneb) 3 ml INH Q6H PRN PRN Reason: Shortness Of Breath Or Wheezing Stop: 02/13/19 13:42 Budesonide (Pulmicort Respules) 0.5 mg NEB BIDR ANA CRISTINA Stop: 02/13/19 19:59 Last Admin: 01/16/19 07:11 Dose: 0.5 mg Documented by: Calcitriol (Racaltrol) 0.5 mcg PO DAILY ANA CRISTINA Stop: 02/14/19 08:59 Last Admin: 01/16/19 08:37 Dose: 0.5 mcg Documented by: Dextrose (Dextrose 50%) 25 - 50 ml IV UD PRN; Protocol PRN Reason: Hypoglycemia Protocol Stop: 02/13/19 13:54 Glucagon (Glucagen) 1 mg SQ UD PRN; Protocol PRN Reason: Hypoglycemia Protocol Stop: 02/13/19 13:54 Glucose (Glucose 40%) 15 - 30 gm PO UD PRN; Protocol PRN Reason: Hypoglycemia Protocol Stop: 02/13/19 13:54 Glucose (Dex4 Glucose) 4 - 8 tabs PO UD PRN; Protocol PRN Reason: Hypoglycemia Protocol Stop: 02/13/19 13:54 Heparin Sodium (Beef Lung) (Heparin Sod 10 Unit/Ml Flush) 5 ml FLUSH PRN PRN PRN Reason: Flush Stop: 02/14/19 02:34 Pantoprazole Sodium 40 mg/ (Dextrose) 100 mls @ 20 mls/hr IV Q5H ANA CRISTINA Stop: 02/13/19 23:29 Last Admin: 01/16/19 10:22 Dose: 20 mls/hr Documented by: Ceftriaxone Sodium 1,000 mg/ (Dextrose) 50 mls @ 100 mls/hr IV Q24H [facility]; Protocol Stop: 01/20/19 15:59 Last Infusion: 01/15/19 17:05 Dose: Infused Documented by: Insulin Aspart (Novolog Flexpen) 0 units SC Q6 [facility] Stop: 02/14/19 11:59 Last Admin: 01/16/19 06:11 Dose: Not Given Documented by: Insulin Glargine (Lantus Solostar Pen) 7 units SC BID [facility] Stop: 02/13/19 20:59 Last Admin: 01/16/19 08:12 Dose: 7 units Documented by: Isosorbide Mononitrate (Imdur Extended Rel) 60 mg PO DAILY [facility] Stop: 02/14/19 08:59 Last Admin: 01/16/19 08:38 Dose: 60 mg Documented by: Lorazepam (Ativan) 0.5 mg SL Q12 PRN PRN Reason: anxiousness Stop: 02/13/19 13:42 Last Admin: 01/14/19 16:35 Dose: 0.5 mg Documented by: Lovastatin (Mevacor) 80 mg PO HS [facility] Stop: 02/13/19 20:59 Miconazole Nitrate (Desenex) 1 appln EXT BID [facility] Stop: 02/13/19 20:59 Last Admin: 01/16/19 08:11 Dose: 1 appln Documented by: Miscellaneous (Carbohydrates For Hypoglycemia) 15 - 30 gm PO UD PRN PRN Reason: Hypoglycemia Treatment Stop: 02/13/19 13:54 Phenazopyridine HCl (Pyridium) 200 mg PO TID [facility] Stop: 01/17/19 13:59 Last Admin: 01/16/19 08:12 Dose: 200 mg Documented by: Polymyxin/Trimethoprim Sulfate (Polytrim) 1 drops OPB Q6 [facility] Stop: 02/13/19 15:29 Last Admin: 01/16/19 05:48 Dose: 1 drops Documented by: Potassium Chloride (Shannan Ciel Elix) 40 meq PO Q6H [facility] Stop: 01/16/19 13:31 Last Admin: 01/16/19 08:11 Dose: 40 meq Documented by: Prednisone (Prednisone) 10 mg PO DAILY [facility] Stop: 02/14/19 08:59 Last Admin: 01/16/19 08:37 Dose: 10 mg Documented by: Ranitidine HCl (Zantac) 150 mg PO HS [facility] Stop: 02/13/19 20:59 Last Admin: 01/15/19 19:24 Dose: 150 mg Documented by: (1) GI (gastrointestinal bleed) GI bleed type/associated pathology: unspecified gastrointestinal hemorrhage type Qualified Code(s): K92.2 - Gastrointestinal hemorrhage, unspecified
[2019-01-16] MEDS ORDERED: Nursing to Pharmacy Communication ONE (13:05)
[2019-01-16] MEDS: cefTRIAXone SODIUM 1,000 MG in DEXTROSE 5% 50 ML IV SCH (16:20)
[2019-01-16] MEDS: ACETAMINOPHEN 325 MG TAB PO PRN (18:43)
[2019-01-16] MEDS: cloNIDine HCl 0.1 MG TAB PO SCH (21:21)
[2019-01-16] MEDS: CARVEDILOL 12.5 MG TAB PO SCH (21:21)
[2019-01-17] MEDS: PANTOprazole 40 MG in DEXTROSE 5% 100 ML IV SCH ×3 (00:49→10:44)
[2019-01-17] MEDS: TRIMETHOPRIM/POLYMYXIN B OPB SCH ×4 (00:49→17:20)
[2019-01-17] MEDS: BUDESONIDE 0.5 MG/2 ML VIAL (PULMICORT) NEB SCH ×2 (07:05→19:14)
[2019-01-17 08:10] LABS: Hematocrit (blood only) 26.8 % (37-47); Hemoglobin 8.7 g/dL (12.0-16.0); Mean Corpuscular Hgb Conc 32.5 g/dL (32-36); Mean Corpuscular Volume 90.5 fL (80-100); Nucleated RBC # (auto) 0.02 K/uL (0-0); Nucleated RBC % (auto) 0.7 %; RDW Coefficient of Variation 15.4 % (11.5-14.5); Red Blood Count 2.96 M/uL (4.2-5.4); White Blood Count 3.49 K/uL (4.8-10.8)
[2019-01-17 08:12] LABS: Mean Platelet Volume 11.7 fL (7.4-10.4); Platelet Count 53 K/uL (130-400)
[2019-01-17] MEDS: HydrALAZINE TAB 50 MG TAB PO SCH ×3 (08:22→21:47)
[2019-01-17] MEDS: PHENAZOPYRIDINE HCL 200 MG TAB PO SCH (08:23)
[2019-01-17] MEDS: CALCITRIOL 0.25 MCG CAPSULE PO SCH (08:23)
[2019-01-17] MEDS: predniSONE 10 MG TABLET PO SCH (08:23)
[2019-01-17] MEDS: cloNIDine HCl 0.1 MG TAB PO SCH ×2 (08:23→21:47)
[2019-01-17] MEDS: ISOSORBIDE MONO EXTENDED REL 60 MG TABCR PO SCH (08:23)
[2019-01-17] MEDS: INSULIN GLARGINE SOLOSTAR 100 UNITS/ML 3 ML PEN SC SCH ×2 (08:24→21:38)
[2019-01-17] MEDS: INSULIN ASPART 100 UNITS/ML 3 ML PEN SC SCH ×4 (08:25→21:37)
[2019-01-17] MEDS: CARVEDILOL 12.5 MG TAB PO SCH ×2 (08:26→21:48)
[2019-01-17] MEDS: MICONAZOLE NITRATE POWDER 43 GM EXT SCH ×2 (08:26→21:41)
[2019-01-17 08:39] LABS: BUN Creatinine Ratio 16.4 (10-20); Calcium 8.3 mg/dl (8.5-10.1); Creatinine Clr Calc Pharmacy 22.2 ml/min; Est GFR (Non-African American) 23.3; Potassium 3.7 mmol/L (3.5-5.1)
[2019-01-17 08:40] LABS: Magnesium 2.2 mg/dl (1.8-2.4); Phosphorus 2.6 mg/dl (2.5-4.9)
[2019-01-17] MEDS ORDERED: HydrALAZINE HCL 20 MG/ML VIAL IV STA (12:20)
--- NOTE | 2019-01-17 12:21 | Hospitalist Progress Note ---
Date of Service January 17, 2019 Assessment & Plan (1) Hypertension: Uncontrolled after several agents were held in setting of acute bleed with hemodynamic instability.'s have been added back including clonidine 0.1 mg p.o. twice daily, hydralazine 50 mg p.o. 3 times daily and Coreg 12.5 mg p.o. twice daily. We will continue to monitor. (2) Encephalopathy: Resolved, patient has dementia at baseline. Encephalopathy was likely metabolic secondary to recent insult from anemia as well as UTI. (3) GI (gastrointestinal bleed): Likely LGIB, held Eliquis, BB, diuretics, ASA. PPI drip was stopped we will continue Protonix 40 mg p.o. daily per GI recommendations. She is doing well and solid food diet. (4) Acute blood loss anemia: Stable, continue plan as above. (5) Hypernatremia: resolved to normal range (6) KARLEE (acute kidney injury): Stage IV CKD at baseline. KARLEE resolved to baseline after volume resuscitation. (7) Atrial fibrillation: held Eliquis in setting of acute bleed, normal rate (8) History of coronary artery disease: held ASA (PCI in 1999), held BB in acute bleed which has now been restarted, cont Imdur, cont statin (9) COPD (chronic obstructive pulmonary disease): chronic, stable, no wheezing. Cont 3L oxygen qHS and home inhaler therapy. (10) DMII (diabetes mellitus, type 2): ISS with glargine (11) Morbid obesity: (12) DVT prophylaxis: chemoprophy contraindicated in setting of bleed. SCDs Full Code Dispo-transition to med floor. Jolly Bowles DO [facility] Hospitalist Subjective Patient doing well, she is oriented to self and place which is an improvement from yesterday. She denies any pain. She is not reporting urinary symptoms at this time. Gaines is in place but is scheduled to be discontinued when she is transferred to the floor. Otherwise tolerating p.o.�she has been hemodynamic is stable with a stable H&H. No further new bloody bowel moods have been noted. Review of Systems Review of Systems: All systems reviewed & are unremarkable except as noted in HPI & below Physical Exam Physical Exam: CONSTITUTIONAL: obese, vitals as above, generally well appearing, no acute distress. EYES: Normal conjunctivae with resolution of discharge, no scleral icterus ENT: oropharynx clear, mucous membranes are moist NECK: Right IJ has been removed. RESPIRATORY: clear to auscultation bilaterally, no crackles, rales or wheezes, normal respiratory effort CARDIOVASCULAR: regular rate and irregular rhythm, S1 and 2 heard without murmurs, gallops or rubs, no JVD, no edema peripherally GASTROINTESTINAL: normal bowel sounds, soft, nontender, nondistended MUSCULOSKELETAL: head is normocephalic and atraumatic, generalized weakness but able to sit up in bed without assistance. SKIN: warm and dry, some bruising on R hand NEUROLOGIC: No facial palsy, no dysarthria. CN 2-12 grossly intact, normal speech PSYCHIATRIC: alert cooperative and oriented to person and place but not time. Results & Data Vital Signs (Past 12 Hours) Vital Signs Temp Pulse Resp BP Pulse Ox 01/17/19 11:25 36.4 C L 72 20 187/85 H 100 01/17/19 07:17 36.7 C 78 18 181/87 H 100 01/17/19 07:05 68 18 99 01/17/19 04:21 36.5 C 72 18 168/95 H 99 Laboratory Results Short CBC 01/17/19 Range/Units 07:53 WBC 3.49 L (4.8-10.8) K/uL Hgb 8.7 L (12.0-16.0) g/dL Hct 26.8 L (37-47) % Plt Count 53 L (130-400) K/uL BMP 01/17/19 07:53 Sodium 145 Potassium 3.7 D Chloride 114 H Carbon Dioxide 23 BUN 32 H Creatinine 1.98 H Glucose 106 H Calcium 8.3 L Medications Administered Current Inpatient Medications Acetaminophen (Tylenol) 650 mg PO Q4H PRN PRN Reason: pain/fever Stop: 02/13/19 13:54 Last Admin: 01/16/19 18:43 Dose: 650 mg Documented by: Albuterol (Duoneb) 3 ml INH Q6H PRN PRN Reason: Shortness Of Breath Or Wheezing Stop: 02/13/19 13:42 Budesonide (Pulmicort Respules) 0.5 mg NEB BIDR ANA CRISTINA Stop: 02/13/19 19:59 Last Admin: 01/17/19 07:05 Dose: 0.5 mg Documented by: Calcitriol (Racaltrol) 0.5 mcg PO DAILY ANA CRISTINA Stop: 02/14/19 08:59 Last Admin: 01/17/19 08:23 Dose: 0.5 mcg Documented by: Carvedilol (Coreg) 12.5 mg PO BID ANA CRISTINA Stop: 02/15/19 21:14 Last Admin: 01/17/19 08:26 Dose: 12.5 mg Documented by: Clonidine HCl (Catapres) 0.1 mg PO BID ANA CRISTINA Stop: 02/15/19 21:14 Last Admin: 01/17/19 08:23 Dose: 0.1 mg Documented by: Dextrose (Dextrose 50%) 25 - 50 ml IV UD PRN; Protocol PRN Reason: Hypoglycemia Protocol Stop: 02/13/19 13:54 Glucagon (Glucagen) 1 mg SQ UD PRN; Protocol PRN Reason: Hypoglycemia Protocol Stop: 02/13/19 13:54 Glucose (Glucose 40%) 15 - 30 gm PO UD PRN; Protocol PRN Reason: Hypoglycemia Protocol Stop: 02/13/19 13:54 Glucose (Dex4 Glucose) 4 - 8 tabs PO UD PRN; Protocol PRN Reason: Hypoglycemia Protocol Stop: 02/13/19 13:54 Heparin Sodium (Beef Lung) (Heparin Sod 10 Unit/Ml Flush) 5 ml FLUSH PRN PRN PRN Reason: Flush Stop: 02/14/19 02:34 Hydralazine HCl (Apresoline) 50 mg PO TID ANA CRISTINA Stop: 02/16/19 08:59 Last Admin: 01/17/19 08:22 Dose: 50 mg Documented by: Hydralazine HCl (Hydralazine Hcl) 10 mg IV NOW STA Stop: 01/17/19 12:21 Pantoprazole Sodium 40 mg/ (Dextrose) 100 mls @ 20 mls/hr IV Q5H ANA CRISTINA Stop: 02/13/19 23:29 Last Admin: 01/17/19 10:44 Dose: 20 mls/hr Documented by: Ceftriaxone Sodium 1,000 mg/ (Dextrose) 50 mls @ 100 mls/hr IV Q24H ANA CRISTINA; Protocol Stop: 01/20/19 15:59 Last Infusion: 01/16/19 16:50 Dose: Infused Documented by: Insulin Aspart (Novolog Flexpen) 0 units SC ACHS ANA CRISTINA Stop: 02/15/19 16:29 Last Admin: 01/17/19 08:25 Dose: 4 units Documented by: Insulin Glargine (Lantus Solostar Pen) 7 units SC BID [facility] Stop: 02/13/19 20:59 Last Admin: 01/17/19 08:24 Dose: 7 units Documented by: Isosorbide Mononitrate (Imdur Extended Rel) 60 mg PO DAILY [facility] Stop: 02/14/19 08:59 Last Admin: 01/17/19 08:23 Dose: 60 mg Documented by: Lorazepam (Ativan) 0.5 mg SL Q12 PRN PRN Reason: anxiousness Stop: 02/13/19 13:42 Last Admin: 01/14/19 16:35 Dose: 0.5 mg Documented by: Lovastatin (Mevacor) 80 mg PO HS [facility] Stop: 02/13/19 20:59 Miconazole Nitrate (Desenex) 1 appln EXT BID [facility] Stop: 02/13/19 20:59 Last Admin: 01/17/19 08:26 Dose: 1 appln Documented by: Miscellaneous (Carbohydrates For Hypoglycemia) 15 - 30 gm PO UD PRN PRN Reason: Hypoglycemia Treatment Stop: 02/13/19 13:54 Phenazopyridine HCl (Pyridium) 200 mg PO TID [facility] Stop: 01/17/19 13:59 Last Admin: 01/17/19 08:23 Dose: 200 mg Documented by: Polymyxin/Trimethoprim Sulfate (Polytrim) 1 drops OPB Q6 [facility] Stop: 02/13/19 15:29 Last Admin: 01/17/19 05:19 Dose: 1 drops Documented by: Prednisone (Prednisone) 10 mg PO DAILY [facility] Stop: 02/14/19 08:59 Last Admin: 01/17/19 08:23 Dose: 10 mg Documented by: Ranitidine HCl (Zantac) 150 mg PO HS [facility] Stop: 02/13/19 20:59 Last Admin: 01/16/19 19:52 Dose: 150 mg Documented by: (1) GI (gastrointestinal bleed) GI bleed type/associated pathology: unspecified gastrointestinal hemorrhage type Qualified Code(s): K92.2 - Gastrointestinal hemorrhage, unspecified
[2019-01-17] MEDS: cefTRIAXone SODIUM 1,000 MG in DEXTROSE 5% 50 ML IV SCH (17:19)
[2019-01-17] MEDS: LOVASTATIN 20 MG TAB PO SCH (22:51)
[2019-01-18] MEDS: TRIMETHOPRIM/POLYMYXIN B OPB SCH ×5 (00:11→23:30)
[2019-01-18] MEDS: LORazepam 0.5 MG TAB SL PRN (03:52)
[2019-01-18] MEDS: BUDESONIDE 0.5 MG/2 ML VIAL (PULMICORT) NEB SCH ×2 (07:04→19:51)
[2019-01-18] MEDS: HydrALAZINE TAB 50 MG TAB PO SCH ×4 (08:25→22:34)
[2019-01-18] MEDS: cloNIDine HCl 0.1 MG TAB PO SCH ×3 (08:26→22:34)
[2019-01-18] MEDS: MICONAZOLE NITRATE POWDER 43 GM EXT SCH ×2 (08:26→21:40)
[2019-01-18] MEDS: CARVEDILOL 12.5 MG TAB PO SCH ×3 (08:26→22:34)
[2019-01-18] MEDS: ISOSORBIDE MONO EXTENDED REL 60 MG TABCR PO SCH (08:27)
[2019-01-18] MEDS: INSULIN GLARGINE SOLOSTAR 100 UNITS/ML 3 ML PEN SC SCH ×2 (08:27→21:37)
[2019-01-18 08:28] LABS: Hematocrit (blood only) 24.9 % (37-47); Hemoglobin 8.4 g/dL (12.0-16.0); Mean Corpuscular Hgb Conc 33.7 g/dL (32-36); Mean Corpuscular Volume 90.2 fL (80-100); Nucleated RBC # (auto) 0.03 K/uL (0-0); Nucleated RBC % (auto) 0.7 %; RDW Coefficient of Variation 15.2 % (11.5-14.5); RDW Standard Deviation 48.9 fL (36.4-46.3); Red Blood Count 2.76 M/uL (4.2-5.4); White Blood Count 3.85 K/uL (4.8-10.8)
[2019-01-18] MEDS: predniSONE 10 MG TABLET PO SCH (08:28)
[2019-01-18] MEDS: PANTOprazole 40 MG TAB PO SCH (08:28)
[2019-01-18] MEDS: CALCITRIOL 0.25 MCG CAPSULE PO SCH (08:29)
[2019-01-18] MEDS: INSULIN ASPART 100 UNITS/ML 3 ML PEN SC SCH ×4 (08:30→21:36)
[2019-01-18 09:01] LABS: BUN Creatinine Ratio 15.1 (10-20); Calcium 8.4 mg/dl (8.5-10.1); Creatinine Clr Calc Pharmacy 20.3 ml/min; Est GFR (African American) 24.2; Est GFR (Non-African American) 20.8; Potassium 3.5 mmol/L (3.5-5.1)
[2019-01-18 09:32] LABS: Mean Platelet Volume 10.7 fL (7.4-10.4); Platelet Count 57 K/uL (130-400)
[2019-01-18 09:33] LABS: Platelet Estimate Decreased (Normal)
[2019-01-18] MEDS ORDERED: PIPERACILL/TAZOBAC CONSULT ACTIVE PRN (10:07)
[2019-01-18] MEDS ORDERED: PIPERACILLIN/TAZOBACTAM 3.375 GM in DEXTROSE 5% 100 ML IV SCH (10:15)
[2019-01-18] MEDS ORDERED: PIPERACILLIN/TAZOBACTAM 4.5 GM in DEXTROSE 5% 100 ML IV ONE (10:30)
--- NOTE | 2019-01-18 18:25 | Hospitalist Progress Note ---
Date of Service January 18, 2019 Assessment & Plan (1) Hypertension: Uncontrolled after several agents were held in setting of acute bleed with hemodynamic instability.'s have been added back including clonidine 0.1 mg p.o. twice daily, hydralazine 50 mg p.o. 3 times daily and Coreg 12.5 mg p.o. twice daily. We will continue to monitor. Increased hydralazine to 4 times daily. (2) Encephalopathy: intermittent delirium, high risk for this in dementia patient who is hospitalized with anemia and an infection. (3) GI (gastrointestinal bleed): Likely LGIB, held Eliquis, diuretics, ASA. PPI drip was stopped we will continue Protonix 40 mg p.o. daily per GI recommendations. She is doing well and solid food diet. (4) Acute blood loss anemia: Stable, repeat H/H this evening (5) Hypernatremia: resolved to normal range (6) KARLEE (acute kidney injury): Stage IV CKD at baseline. KARLEE resolved to baseline after volume resuscitation. (7) Atrial fibrillation: held Eliquis in setting of acute bleed, normal rate (8) History of coronary artery disease: held ASA (PCI in 1999), held BB in acute bleed which has now been restarted, cont Imdur, cont statin (9) COPD (chronic obstructive pulmonary disease): chronic, stable, no wheezing. Cont 3L oxygen qHS and home inhaler therapy. (10) DMII (diabetes mellitus, type 2): ISS with glargine (11) Morbid obesity: (12) DVT prophylaxis: chemoprophy contraindicated in setting of bleed. SCDs Full Code Dispo-uncertain at this time. Jolly Bowles DO [facility] Hospitalist Subjective Pt is delirious when I arrived. She states she went downstairs just now and then her head was spinning and she couldn't see. She said she was at her daughter Denzel's house and "we are going to look for the migdalia." Nurses report one blackish-maroon stool today. ROS is unobtainable 2/2 AMS. Review of Systems Review of Systems: Unobtainable due to cognitive status Physical Exam Physical Exam: CONSTITUTIONAL: obese, vitals as above, generally well appearing, no acute distress. EYES: Normal conjunctivae with resolution of discharge, no scleral icterus ENT: oropharynx clear, mucous membranes are moist NECK: Right IJ has been removed. RESPIRATORY: clear to auscultation bilaterally, no crackles, rales or wheezes, normal respiratory effort CARDIOVASCULAR: regular rate and irregular rhythm, S1 and 2 heard without murmurs, gallops or rubs, no JVD, no edema peripherally GASTROINTESTINAL: normal bowel sounds, soft, nontender, nondistended MUSCULOSKELETAL: head is normocephalic and atraumatic, generalized weakness but able to sit up in bed without assistance. SKIN: warm and dry, some bruising on R hand NEUROLOGIC: No facial palsy, no dysarthria. CN 2-12 grossly intact, normal speech PSYCHIATRIC: alert cooperative and oriented to person and place but not time. Results & Data Vital Signs (Past 12 Hours) Vital Signs Temp Pulse Resp BP BP Pulse Ox 01/18/19 15:00 36.3 C L 79 16 183/85 H 100 01/18/19 09:46 173/86 H 01/18/19 08:10 36.5 C 84 18 195/78 H 98 Laboratory Results Short CBC 01/18/19 Range/Units 08:10 WBC 3.85 L (4.8-10.8) K/uL Hgb 8.4 L (12.0-16.0) g/dL Hct 24.9 L (37-47) % Plt Count 57 L (130-400) K/uL BMP 01/18/19 08:10 Sodium 141 Potassium 3.5 Chloride 110 H Carbon Dioxide 23 BUN 33 H Creatinine 2.17 H Glucose 160 H Calcium 8.4 L Medications Administered Current Inpatient Medications Acetaminophen (Tylenol) 650 mg PO Q4H PRN PRN Reason: pain/fever Stop: 02/13/19 13:54 Last Admin: 01/16/19 18:43 Dose: 650 mg Documented by: Albuterol (Duoneb) 3 ml INH Q6H PRN PRN Reason: Shortness Of Breath Or Wheezing Stop: 02/13/19 13:42 Budesonide (Pulmicort Respules) 0.5 mg NEB BIDR [facility] Stop: 02/13/19 19:59 Last Admin: 01/18/19 19:51 Dose: Not Given Documented by: Calcitriol (Racaltrol) 0.5 mcg PO DAILY [facility] Stop: 02/14/19 08:59 Last Admin: 01/18/19 08:29 Dose: 0.5 mcg Documented by: Carvedilol (Coreg) 12.5 mg PO BID [facility] Stop: 02/15/19 21:14 Last Admin: 01/18/19 21:40 Dose: 12.5 mg Documented by: Clonidine HCl (Catapres) 0.1 mg PO BID [facility] Stop: 02/15/19 21:14 Last Admin: 01/18/19 21:39 Dose: 0.1 mg Documented by: Dextrose (Dextrose 50%) 25 - 50 ml IV UD PRN; Protocol PRN Reason: Hypoglycemia Protocol Stop: 02/13/19 13:54 Glucagon (Glucagen) 1 mg SQ UD PRN; Protocol PRN Reason: Hypoglycemia Protocol Stop: 02/13/19 13:54 Glucose (Glucose 40%) 15 - 30 gm PO UD PRN; Protocol PRN Reason: Hypoglycemia Protocol Stop: 02/13/19 13:54 Glucose (Dex4 Glucose) 4 - 8 tabs PO UD PRN; Protocol PRN Reason: Hypoglycemia Protocol Stop: 02/13/19 13:54 Heparin Sodium (Beef Lung) (Heparin Sod 10 Unit/Ml Flush) 5 ml FLUSH PRN PRN PRN Reason: Flush Stop: 02/14/19 02:34 Hydralazine HCl (Apresoline) 50 mg PO QID [facility] Stop: 02/17/19 20:59 Last Admin: 01/18/19 21:39 Dose: 50 mg Documented by: Piperacillin Sod/Tazobactam (Sod 4.5 gm/ Dextrose) 120 mls @ 30 mls/hr IV Q12H [facility]; Protocol Stop: 01/23/19 17:59 Last Infusion: 01/18/19 20:06 Dose: 0 mls/hr Documented by: Insulin Aspart (Novolog Flexpen) 0 units SC ACHS [facility] Stop: 02/15/19 16:29 Last Admin: 01/18/19 21:36 Dose: 3 units Documented by: Insulin Glargine (Lantus Solostar Pen) 7 units SC BID [facility] Stop: 02/13/19 20:59 Last Admin: 01/18/19 21:37 Dose: 7 units Documented by: Isosorbide Mononitrate (Imdur Extended Rel) 60 mg PO DAILY [facility] Stop: 02/14/19 08:59 Last Admin: 01/18/19 08:27 Dose: 60 mg Documented by: Lorazepam (Ativan) 0.5 mg SL Q12 PRN PRN Reason: anxiousness Stop: 02/13/19 13:42 Last Admin: 01/18/19 03:52 Dose: 0.5 mg Documented by: Lovastatin (Mevacor) 80 mg PO HS [facility] Stop: 02/13/19 20:59 Last Admin: 01/18/19 21:38 Dose: 80 mg Documented by: Miconazole Nitrate (Desenex) 1 appln EXT BID [facility] Stop: 02/13/19 20:59 Last Admin: 01/18/19 21:40 Dose: 1 appln Documented by: Miscellaneous (Carbohydrates For Hypoglycemia) 15 - 30 gm PO UD PRN PRN Reason: Hypoglycemia Treatment Stop: 02/13/19 13:54 Miscellaneous Information (Consult) 1 ea N/A UD PRN PRN Reason: Consult Stop: 02/17/19 10:06 Pantoprazole Sodium (Protonix) 40 mg PO QAM [facility] Stop: 02/17/19 08:59 Last Admin: 01/18/19 08:28 Dose: 40 mg Documented by: Polymyxin/Trimethoprim Sulfate (Polytrim) 1 drops OPB Q6 [facility] Stop: 02/13/19 15:29 Last Admin: 01/18/19 18:14 Dose: 1 drops Documented by: Prednisone (Prednisone) 10 mg PO DAILY [facility] Stop: 02/14/19 08:59 Last Admin: 01/18/19 08:28 Dose: 10 mg Documented by: Ranitidine HCl (Zantac) 150 mg PO HS [facility] Stop: 02/13/19 20:59 Last Admin: 01/18/19 21:35 Dose: 150 mg Documented by: (1) GI (gastrointestinal bleed) GI bleed type/associated pathology: unspecified gastrointestinal hemorrhage type Qualified Code(s): K92.2 - Gastrointestinal hemorrhage, unspecified
[2019-01-18] MEDS: PIPERACILLIN/TAZOBACTAM 4.5 GM in DEXTROSE 5% 100 ML IV SCH (19:51)
[2019-01-18] MEDS ORDERED: HALOPERIDOL LACTATE 5 MG/ML 1 ML VIAL IM STA (21:28)
[2019-01-18] MEDS: LOVASTATIN 20 MG TAB PO SCH ×2 (21:38→22:34)
[2019-01-19] MEDS: CARVEDILOL 12.5 MG TAB PO SCH ×3 (00:07→20:52)
[2019-01-19] MEDS: HydrALAZINE TAB 50 MG TAB PO SCH ×5 (00:08→20:54)
[2019-01-19] MEDS: TRIMETHOPRIM/POLYMYXIN B OPB SCH ×3 (06:05→18:01)
[2019-01-19] MEDS: PIPERACILLIN/TAZOBACTAM 4.5 GM in DEXTROSE 5% 100 ML IV SCH ×2 (06:05→18:07)
[2019-01-19] MEDS: cloNIDine HCl 0.1 MG TAB PO SCH ×2 (06:13→20:54)
[2019-01-19] MEDS: BUDESONIDE 0.5 MG/2 ML VIAL (PULMICORT) NEB SCH ×2 (07:12→20:03)
[2019-01-19 07:46] LABS: Hematocrit (blood only) 25.9 % (37-47); Hemoglobin 8.7 g/dL (12.0-16.0); Mean Corpuscular Hgb Conc 33.6 g/dL (32-36); Mean Corpuscular Volume 90.9 fL (80-100); Nucleated RBC # (auto) 0.02 K/uL (0-0); Nucleated RBC % (auto) 0.6 %; RDW Coefficient of Variation 15.1 % (11.5-14.5); RDW Standard Deviation 48.9 fL (36.4-46.3); Red Blood Count 2.85 M/uL (4.2-5.4); White Blood Count 3.34 K/uL (4.8-10.8)
[2019-01-19 08:00] LABS: Mean Platelet Volume 10.9 fL (7.4-10.4); Platelet Count 70 K/uL (130-400)
[2019-01-19] MEDS: MICONAZOLE NITRATE POWDER 43 GM EXT SCH ×2 (08:06→20:54)
[2019-01-19] MEDS: predniSONE 10 MG TABLET PO SCH (08:07)
[2019-01-19] MEDS: PANTOprazole 40 MG TAB PO SCH (08:07)
[2019-01-19] MEDS: ISOSORBIDE MONO EXTENDED REL 60 MG TABCR PO SCH (08:07)
[2019-01-19] MEDS: CALCITRIOL 0.25 MCG CAPSULE PO SCH (08:08)
[2019-01-19 08:21] LABS: BUN Creatinine Ratio 16.7 (10-20); Calcium 8.6 mg/dl (8.5-10.1); Creatinine Clr Calc Pharmacy 22.9 ml/min; Est GFR (Non-African American) 24.2; Magnesium 2.3 mg/dl (1.8-2.4); Potassium 3.5 mmol/L (3.5-5.1)
[2019-01-19] MEDS: INSULIN ASPART 100 UNITS/ML 3 ML PEN SC SCH ×4 (09:21→20:50)
[2019-01-19] MEDS: INSULIN GLARGINE SOLOSTAR 100 UNITS/ML 3 ML PEN SC SCH ×2 (09:22→20:52)
[2019-01-19] MEDS: ACETAMINOPHEN 325 MG TAB PO PRN (17:57)
--- NOTE | 2019-01-19 19:48 | Hospitalist Progress Note ---
Date of Service January 19, 2019 Assessment & Plan (1) Hypertension: Uncontrolled Continue Coreg, Clonidine, Hydralazine Monitor (2) Encephalopathy: Intermittent delirium Could have underlying dementia Metabolic Encephalopathy due to UTI could be contributing Check CT head if remains confused UTI: Urine Culture: E.Coli, Pseudomonas Continue Zosyn for now (3) GI (gastrointestinal bleed): Likely LGIB--Diverticular held Eliquis, diuretics, ASA for now PPI ggt >>>. PO PPI Appreciate GI Input Monitor CBC (4) Acute blood loss anemia: Stable Monitor CBC (5) Hypernatremia: resolved Monitor (6) KARLEE (acute kidney injury): Stage IV CKD at baseline. KARLEE resolved to baseline after volume resuscitation Monitor renal function (7) Atrial fibrillation: held Eliquis in setting of acute bleed Continue Coreg (8) History of coronary artery disease: held ASA (PCI in 1999) Continue BB, Imdur, statin (9) COPD (chronic obstructive pulmonary disease): chronic, stable Cont 3L oxygen qHS Continue home inhaler (10) DMII (diabetes mellitus, type 2): A1C:5.8 Continue ISS, glargine (11) Morbid obesity: BMI:40 (12) DVT prophylaxis: SCDs Re: GI bleed Code Status DNI/DNR Subjective Patient is seen and examined at bedside She is pleasantly confused History unreliable No family at bedside Offers no complaints as per staff Review of Systems Review of Systems: All systems reviewed & are unremarkable except as noted in HPI & below Physical Exam Physical Exam: Physical Exam: Vitals signs as noted above General Appearance:Moderately built and nourished, no apparent distress Head: normocephalic, Atraumatic Eyes: normal inspection, EOMI Neck: supple, Trachea midline Respiratory/Chest: Normal breath sounds, CTA Cardiovascular: S1, S2, No murmur Abdomen/GI:Soft, Non tender, Bowel sounds present Extremities/Musculoskelatal:normal inspection, 1-2+ B/L LE edema Neurologic/Psych:grossly no focal neurological deficits Skin: normal color, warm Results & Data Vital Signs (Past 12 Hours) Vital Signs Temp Pulse Pulse Resp BP BP Pulse Ox 01/19/19 16:00 36.3 C L 75 18 167/82 H 100 01/19/19 10:31 70 168/83 H Laboratory Results Short CBC 01/19/19 Range/Units 07:29 WBC 3.34 L (4.8-10.8) K/uL Hgb 8.7 L (12.0-16.0) g/dL Hct 25.9 L (37-47) % Plt Count 70 L (130-400) K/uL BMP 01/19/19 07:29 Sodium 142 Potassium 3.5 Chloride 112 H Carbon Dioxide 22 BUN 32 H Creatinine 1.92 H Glucose 165 H Calcium 8.6 (1) GI (gastrointestinal bleed) GI bleed type/associated pathology: unspecified gastrointestinal hemorrhage type Qualified Code(s): K92.2 - Gastrointestinal hemorrhage, unspecified
[2019-01-19] MEDS: LOVASTATIN 20 MG TAB PO SCH (20:53)
[2019-01-20] MEDS: TRIMETHOPRIM/POLYMYXIN B OPB SCH ×5 (00:25→23:56)
[2019-01-20] MEDS: cloNIDine HCl 0.1 MG TAB PO SCH ×2 (00:27→21:05)
[2019-01-20] MEDS: PIPERACILLIN/TAZOBACTAM 4.5 GM in DEXTROSE 5% 100 ML IV SCH ×2 (06:07→17:27)
[2019-01-20 07:02] LABS: Hemoglobin 7.9 g/dL (12.0-16.0)
[2019-01-20] MEDS: BUDESONIDE 0.5 MG/2 ML VIAL (PULMICORT) NEB SCH ×2 (07:19→19:37)
[2019-01-20 07:30] LABS: Creatinine Clr Calc Pharmacy 20.9 ml/min; Est GFR (Non-African American) 21.6
[2019-01-20] MEDS: PANTOprazole 40 MG TAB PO SCH ×2 (08:16→21:06)
[2019-01-20] MEDS: predniSONE 10 MG TABLET PO SCH (08:16)
[2019-01-20] MEDS: CARVEDILOL 12.5 MG TAB PO SCH ×2 (08:16→21:05)
[2019-01-20] MEDS: ISOSORBIDE MONO EXTENDED REL 60 MG TABCR PO SCH (08:16)
[2019-01-20] MEDS: CALCITRIOL 0.25 MCG CAPSULE PO SCH (08:17)
[2019-01-20] MEDS: HydrALAZINE TAB 50 MG TAB PO SCH ×4 (08:18→21:04)
[2019-01-20] MEDS: INSULIN GLARGINE SOLOSTAR 100 UNITS/ML 3 ML PEN SC SCH ×2 (08:20→21:11)
[2019-01-20] MEDS: MICONAZOLE NITRATE POWDER 43 GM EXT SCH ×2 (08:20→21:18)
[2019-01-20] MEDS: INSULIN ASPART 100 UNITS/ML 3 ML PEN SC SCH ×4 (08:52→21:12)
[2019-01-20] MEDS: AMLODIPINE BESYLATE 5 MG TAB PO SCH (11:25)
--- NOTE | 2019-01-20 13:19 | CT Scan Report ---
CT head/brain wo con CLINICAL HISTORY: 78 years-old Female with Altered mental status. Acutely altered mental status TECHNIQUE: Multiple axial CT images of the head were obtained without contrast. A dose lowering tech nique was utilized adhering to the principles of ALARA. CT DOSE: 638.56 mGycm COMPARISON: Head CT 04/30/2018. FINDINGS: No acute intracranial hemorrhage, midline shift, intracranial mass, hydrocephalus, territorial ischem ia or abnormal extra-axial collection. Age-related involutional changes. Patchy white matter hypodens ities redemonstrated suggestive of chronic microvascular ischemic disease. Cerebral vascular calcific ations are noted. The calvarium is intact. The paranasal sinuses, mastoid air cells, and middle ear cavities are clear . IMPRESSION: No acute intracranial abnormality. The above report was generated using voice recognition software. It may contain grammatical, syntax o r spelling errors. Electronically signed by: Modesto Kebede M.D. 01/20/2019 1:18 PM
[2019-01-20] MEDS: cloNIDine HCl 0.1 MG TAB PO PRN (15:26)
[2019-01-20] MEDS ORDERED: AMLODIPINE BESYLATE 5 MG TAB PO ONE (18:00)
--- NOTE | 2019-01-20 19:01 | Hospitalist Progress Note ---
Date of Service January 20, 2019 Assessment & Plan (1) Hypertension: Uncontrolled Continue Coreg, Clonidine, Hydralazine Restart amlodipine Monitor (2) Encephalopathy: Intermittent confusion at baseline as per patient's daughter Could have underlying dementia Metabolic Encephalopathy due to UTI could be contributing CT head: No acute intracranial abnormality. UTI: Urine Culture: E.Coli, Pseudomonas Continue Zosyn (3) GI (gastrointestinal bleed): Likely LGIB--Diverticular held Eliquis, ASA for now PPI ggt >>>. PO PPI BID Appreciate GI Input Monitor CBC Hb dropped to 7.9 today No further investigations/Scopes as per patient's daughter Transfuse PRBC as needed No overt bleeding issues (4) Acute blood loss anemia: Stable Monitor CBC (5) Hypernatremia: resolved Monitor (6) KARLEE (acute kidney injury): Stage IV CKD at baseline. KARLEE resolved to baseline after volume resuscitation Monitor renal function (7) Atrial fibrillation: held Eliquis in setting of acute bleed Continue Coreg (8) History of coronary artery disease: held ASA (PCI in 1999) Continue BB, Imdur, statin (9) COPD (chronic obstructive pulmonary disease): chronic, stable Cont 3L oxygen qHS Continue home inhaler (10) DMII (diabetes mellitus, type 2): A1C:5.8 Continue ISS, glargine (11) Morbid obesity: BMI:40 (12) DVT prophylaxis: SCDs Re: GI bleed Code Status DNI/DNR Disposition: Expect to discharge back to outside as able Patient's Daughter: Pilar Mora: [phone] Subjective Patient is seen and examined at bedside States feeling tired CT head no acute changes Discussed with patient's daughter in detail--no aggressive measures/further investigation as per patient's daughter Intermittently confused at baseline History unreliable BP improved with restarting amlodipine No overt bleeding issues Hb slightly dropped Review of Systems Review of Systems: All systems reviewed & are unremarkable except as noted in HPI & below Physical Exam Physical Exam: Physical Exam: Vitals signs as noted above General Appearance:Moderately built and nourished, no apparent distress Head: normocephalic, Atraumatic Eyes: normal inspection, EOMI Neck: supple, Trachea midline Respiratory/Chest: Normal breath sounds, CTA Cardiovascular: Irregularly irregular rhythm , No murmur Abdomen/GI:Soft, Non tender, Bowel sounds present Extremities/Musculoskelatal:normal inspection, 1-2+ B/L LE edema Neurologic/Psych:grossly no focal neurological deficits Skin: normal color, warm Results & Data Vital Signs (Past 12 Hours) Vital Signs Temp Pulse Pulse Resp BP BP Pulse Ox 01/20/19 18:45 76 155/78 H 01/20/19 17:04 78 197/93 H 01/20/19 14:50 36.4 C L 66 20 191/92 H 100 01/20/19 11:28 70 184/87 H 01/20/19 07:27 36.4 C L 78 20 178/84 H 100 01/20/19 07:21 73 18 100 Laboratory Results Short CBC 01/20/19 Range/Units 06:49 Hgb 7.9 L (12.0-16.0) g/dL Hct 24.0 L (37-47) % BMP 01/20/19 06:49 Creatinine 2.11 H (1) GI (gastrointestinal bleed) GI bleed type/associated pathology: unspecified gastrointestinal hemorrhage type Qualified Code(s): K92.2 - Gastrointestinal hemorrhage, unspecified
[2019-01-20] MEDS: LOVASTATIN 20 MG TAB PO SCH (21:06)
[2019-01-21] MEDS: cloNIDine HCl 0.1 MG TAB PO PRN (00:13)
[2019-01-21] MEDS: PIPERACILLIN/TAZOBACTAM 4.5 GM in DEXTROSE 5% 100 ML IV SCH (05:55)
[2019-01-21] MEDS: TRIMETHOPRIM/POLYMYXIN B OPB SCH ×2 (05:56→12:52)
[2019-01-21] MEDS: BUDESONIDE 0.5 MG/2 ML VIAL (PULMICORT) NEB SCH (07:07)
[2019-01-21 07:23] LABS: Hematocrit (blood only) 24.2 % (37-47); Hemoglobin 8.2 g/dL (12.0-16.0); Mean Corpuscular Hgb Conc 33.9 g/dL (32-36); Mean Corpuscular Volume 91.3 fL (80-100); Nucleated RBC # (auto) 0.07 K/uL (0-0); Nucleated RBC % (auto) 2.2 %; RDW Coefficient of Variation 15.9 % (11.5-14.5); RDW Standard Deviation 49.7 fL (36.4-46.3); Red Blood Count 2.65 M/uL (4.2-5.4); White Blood Count 3.27 K/uL (4.8-10.8)
[2019-01-21 07:25] LABS: Mean Platelet Volume 10.7 fL (7.4-10.4); Platelet Count 74 K/uL (130-400)
[2019-01-21 07:47] LABS: Calcium 8.7 mg/dl (8.5-10.1); Creatinine Clr Calc Pharmacy 19.3 ml/min; Est GFR (African American) 22.8; Est GFR (Non-African American) 19.6; Potassium 3.4 mmol/L (3.5-5.1)
[2019-01-21] MEDS: HydrALAZINE TAB 50 MG TAB PO SCH ×2 (07:53→12:52)
[2019-01-21] MEDS: ISOSORBIDE MONO EXTENDED REL 60 MG TABCR PO SCH (07:54)
[2019-01-21] MEDS: cloNIDine HCl 0.1 MG TAB PO SCH (07:54)
[2019-01-21] MEDS: CARVEDILOL 12.5 MG TAB PO SCH (07:54)
[2019-01-21] MEDS: MICONAZOLE NITRATE POWDER 43 GM EXT SCH (07:54)
[2019-01-21] MEDS: AMLODIPINE BESYLATE 5 MG TAB PO SCH (07:55)
[2019-01-21] MEDS: CALCITRIOL 0.25 MCG CAPSULE PO SCH (07:55)
[2019-01-21] MEDS: predniSONE 10 MG TABLET PO SCH (07:55)
[2019-01-21] MEDS: PANTOprazole 40 MG TAB PO SCH (07:55)
[2019-01-21] MEDS: INSULIN GLARGINE SOLOSTAR 100 UNITS/ML 3 ML PEN SC SCH (07:58)
[2019-01-21] MEDS: INSULIN ASPART 100 UNITS/ML 3 ML PEN SC SCH ×2 (08:38→12:53)
[2019-01-21] MEDS ORDERED: POTASSIUM CHLORIDE 10 MEQ TABCR PO STA (08:42)
--- NOTE | 2019-01-21 13:22 | Hospitalist Progress Note ---
Date of Service January 21, 2019 Assessment & Plan (1) Hypertension: Bp improving Continue Coreg, Clonidine, Hydralazine Restarted amlodipine Monitor (2) Encephalopathy: Intermittent confusion at baseline as per patient's daughter Could have underlying dementia Metabolic Encephalopathy due to UTI could be contributing CT head: No acute intracranial abnormality. UTI: Urine Culture: E.Coli, Pseudomonas To complete Zosyn course >>will transition to Cipro (3) GI (gastrointestinal bleed): Likely LGIB--Diverticular held Eliquis, ASA for now PPI ggt >>>. PO PPI BID Appreciate GI Input Monitor CBC Hb dropped to 8.2 today No further investigations/Scopes as per patient's daughter Transfuse PRBC as needed No overt bleeding issues (4) Acute blood loss anemia: Stable Monitor CBC (5) Hypernatremia: resolved Monitor (6) KARLEE (acute kidney injury): Stage IV CKD at baseline. KARLEE resolved to baseline after volume resuscitation Monitor renal function (7) Atrial fibrillation: held Eliquis in setting of acute bleed Continue Coreg (8) History of coronary artery disease: held ASA (PCI in 1999) Continue BB, Imdur, statin (9) COPD (chronic obstructive pulmonary disease): chronic, stable Cont 3L oxygen qHS Continue home inhaler (10) DMII (diabetes mellitus, type 2): A1C:5.8 Continue ISS, glargine (11) Morbid obesity: BMI:40 (12) DVT prophylaxis: SCDs Re: GI bleed Code Status DNI/DNR Disposition: Expect to discharge back to SNF today---Patient needs continued Physical therapy as outpatient Patient's Daughter: Pilar Mora: [phone] Subjective Patient is seen and examined at bedside No significant change from yesterday Discussed with daughter in detail Hb stable BP improving No overt bleeding issues Review of Systems Review of Systems: All systems reviewed & are unremarkable except as noted in HPI & below Physical Exam Physical Exam: Physical Exam: Vitals signs as noted above General Appearance:Moderately built and nourished, no apparent distress Head: normocephalic, Atraumatic Eyes: normal inspection, EOMI Neck: supple, Trachea midline Respiratory/Chest: Normal breath sounds, CTA Cardiovascular: Irregularly irregular rhythm , No murmur Abdomen/GI:Soft, Non tender, Bowel sounds present Extremities/Musculoskelatal:normal inspection, 1-2+ B/L LE edema Neurologic/Psych:grossly no focal neurological deficits Skin: normal color, warm Results & Data Vital Signs (Past 12 Hours) Vital Signs Temp Pulse Resp BP Pulse Ox 01/21/19 07:08 79 20 99 01/21/19 07:05 36.4 C L 71 20 168/75 H 100 Laboratory Results Short CBC 01/21/19 Range/Units 06:49 WBC 3.27 L (4.8-10.8) K/uL Hgb 8.2 L (12.0-16.0) g/dL Hct 24.2 L (37-47) % Plt Count 74 L (130-400) K/uL BMP 01/21/19 06:49 Sodium 141 Potassium 3.4 L Chloride 112 H Carbon Dioxide 23 BUN 30 H Creatinine 2.28 H Glucose 152 H Calcium 8.7 (1) GI (gastrointestinal bleed) GI bleed type/associated pathology: unspecified gastrointestinal hemorrhage type Qualified Code(s): K92.2 - Gastrointestinal hemorrhage, unspecified
--- NOTE | 2019-01-21 13:37 | Discharge Summary ---
Date of Service January 21, 2019 Admission HPI Per Admitting Provider 78-year-old female with diabetes, COPD, paroxysmal atrial fibrillation on Eliquis presents with hematochezia that began overnight. She resides in a personal retirement and woke up this morning with a reddish appearing stool. She denies that this was blackish in color but then subsequent stools she states she did not visualize as she was unable to. She does report some right lower quadrant abdominal pain which does not appear to be present on exam. She is also very concerned about urinating and urgency to urinate, however, has a catheter. Despite being told she can relax and urinate she is still very concerned about this and states "I have to go to the bathroom" when I examined her abdomen and pushed. She reports eating breakfast this morning including cereal and denies any nausea and vomiting. She denies any lightheadedness with ambulation, chest pain, shortness of breath. She reports feeling well yesterday. She denies any history of abdominal pain in the past. She denies any fevers or chills recently. She denies any bleeding from other sites. She denies any medication changes in the last several weeks. In the ER IV access was very difficult and IV team was called into place a 24- gauge peripheral IV. Additional IV access was unable to be obtained. As she was hemodynamically stable IV fluids were started in hopes this would make additional peripheral IV access easier in the next couple hours. H&H is 10.9/34.7 which is her baseline. She did have 2 large episodes of bright red blood per rectum while in the ER. INR is 1.1 sodium is notably 150, and her mucous membranes are very dry. She continues to report a dry mouth. She otherwise denies any symptoms. Admission Exam Per Admitting Provider CONSTITUTIONAL: obese, vitals as above, generally well appearing, in mild distress EYES: PERRL, +conjunctival discharge and crusting bilaterally L>R, no scleral icterus ENT: oropharynx clear, mucous membranes are dry RESPIRATORY: clear to auscultation bilaterally, no crackles, rales or wheezes, normal respiratory effort CARDIOVASCULAR: regular rate and irregular rhythm, S1 and 2 heard without murmurs, gallops or rubs, no JVD GASTROINTESTINAL: normal bowel sounds, soft, nontender, nondistended, no CVA tenderness MUSCULOSKELETAL: head is normocephalic and atraumatic, generalized weakness but able to sit up in bed without assistance. SKIN: warm and dry, some bruising on R hand NEUROLOGIC: No facial palsy, no dysarthria. CN 2-12 grossly intact, normal speech PSYCHIATRIC: alert cooperative and oriented to person and place but not time. Principal Diagnosis Discharge Information Discharge Diagnosis Gastrointestinal bleed Acute kidney injury Urinary tract infection Metabolic Encephalopathy Discharge Goals Decrease discomfort,Improve disease control, Improve function Discharge Activity Limitations Resume your previous activity Discharge Data Allergies Allergy/AdvReac Type Severity Reaction Status Date / Time codeine Allergy Unknown UNKNOWN Verified 01/14/19 08:19 aspirin AdvReac Intermediate (ULCER) Verified 01/14/19 08:19 venlafaxine AdvReac Intermediate DROWINESS/ Verified 01/14/19 08:19 CONFUSION cephalexin AdvReac Mild DROWSINESS, Verified 01/14/19 08:[address], UPSET STOMACH oxycodone AdvReac Mild n/v Verified 01/14/19 08:19 Consultations 01/14/19 11:57 ED Decision to Admit Stat 01/14/19 13:55 Consult Case Management - Discharge Planning Routine Consult Gastroenterology Routine Procedures Performed CT head: No acute intracranial abnormality. Chest/Abdominal X ray: 1. Cardiomegaly. No other convincing evidence of acute cardiopulmonary disease. 2. Findings suggest constipation. Ordered Studies 01/20/19 12:10 CT head/brain wo con Routine Hospital Course (1) Hypertension: Bp improving Continue Coreg, Clonidine, Hydralazine Restarted amlodipine Monitor (2) Encephalopathy: Intermittent confusion at baseline as per patient's daughter Could have underlying dementia Metabolic Encephalopathy due to UTI could be contributing CT head: No acute intracranial abnormality. UTI: Urine Culture: E.Coli, Pseudomonas To complete Zosyn course >>will transition to Cipro (3) GI (gastrointestinal bleed): Likely LGIB--Diverticular held Eliquis, ASA for now PPI ggt >>>. PO PPI BID Appreciate GI Input Monitor CBC Hb dropped to 8.2 today No further investigations/Scopes as per patient's daughter Transfuse PRBC as needed No overt bleeding issues (4) Acute blood loss anemia: Stable Monitor CBC (5) Hypernatremia: resolved Monitor (6) KARLEE (acute kidney injury): Stage IV CKD at baseline. KARLEE resolved to baseline after volume resuscitation Monitor renal function (7) Atrial fibrillation: held Eliquis in setting of acute bleed Continue Coreg (8) History of coronary artery disease: held ASA (PCI in 1999) Continue BB, Imdur, statin (9) COPD (chronic obstructive pulmonary disease): chronic, stable Cont 3L oxygen qHS Continue home inhaler (10) DMII (diabetes mellitus, type 2): A1C:5.8 Continue ISS, glargine (11) Morbid obesity: BMI:40 (12) DVT prophylaxis: SCDs Re: GI bleed Code Status DNI/DNR Disposition: Expect to discharge back to SNF today---Patient needs continued Physical therapy as outpatient Patient's Daughter: Pilar Mora: [phone] Total Time Total Time Spent Total Time Spent (In Minutes): 40 minutes Total Time Includes: Examination of the Patient, Discharge Planning, Medication Reconciliation, Communication With Other Providers and Other Discharge Plan Discharge Items Patient Disposition: Transfer Care Home Fac Reason For Visit: HEMATOCHEZIA Discharge Diagnosis: Gastrointestinal bleed Acute kidney injury Urinary tract infection Metabolic Encephalopathy Discharge Goals: Decrease discomfort, Improve disease control and Improve function Activity: Resume your previous activity Exercise/Sports: Gradually increase as tolerated Non-emergency contact: Primary Care Provider Call non-emergency contact if: you have any medication questions, your symptoms worsen, your pain is not controlled, your pain is worsening, your pain is unusual for you, your pain is concerning for you and you have a fever Follow-up/Referrals: Maged Kay [Primary Care Provider] - Diet: Carb Consistent or DM2 Addtl Provider Instructions: Follow-up with primary care physician in 1 week Consider following up with grinder operator as recommended Continue Physical therapy as outpatient Complete the antibiotic course as prescribed Your aspirin and Apixaban is discontinued secondary to gastrointestinal bleeding. Follow-up with your primary care physician for further recommendations. Seek immediate medical attention if your symptoms reoccur or worsen Prescriptions: New pantoprazole 40 mg Tablet,Delayed Release (Dr/Ec) 40 mg PO BID 30 Days Qty: 60 RF: 0 ciprofloxacin HCl [Cipro] 250 mg tablet 250 mg PO DAILY Qty: 3 RF: 0 Continued nitroglycerin [Nitrostat] 0.4 mg Tablet, Sublingual 0.4 mg UT PRN PRN (Reason: Chest Pain) Qty: 0 RF: 0 solifenacin [Vesicare] 5 mg Tablet 5 mg PO DAILY Qty: 0 RF: 0 lovastatin 40 mg Tablet 80 mg PO HS Qty: 0 RF: 0 ferrous sulfate 325 mg (65 mg iron) Tablet 325 mg PO DAILY Qty: 0 RF: 0 budesonide [Pulmicort] 0.5 mg/2 mL Suspension For Nebulization 0.5 mg NEB BID Qty: 120 RF: 0 calcitriol 0.25 mcg Capsule 0.5 mcg PO DAILY Qty: 0 RF: 0 Lantus Solostar U-100 Insulin 100 unit/mL (3 mL) Insulin Pen 27 units SC DAILY Qty: 0 RF: 0 prednisone 10 mg Tablet 10 mg PO DAILY Qty: 0 RF: 0 Probiotic (S.boulardii) 250 mg Capsule 250 mg PO BID Qty: 0 RF: 0 acetaminophen 325 mg Tablet 650 mg PO Q6 PRN (Reason: Pain) Qty: 0 RF: 0 ranitidine HCl 150 mg Tablet 150 mg PO HS Qty: 0 RF: 0 clonidine HCl 0.1 mg Tablet 0.1 mg PO BID RF: 0 carvedilol [Coreg] 12.5 mg Tablet 12.5 mg PO BID RF: 0 ipratropium-albuterol 0.5 mg-3 mg(2.5 mg base)/3 mL Solution For Nebulization 3 ml INHALATION Q6H PRN (Reason: Shortness Of Breath Or Wheezing) RF: 0 sennosides-docusate sodium [Senokot-S] 8.6-50 mg Tablet 1 tab PO BID RF: 0 amlodipine 5 mg Tablet 5 mg PO DAILY RF: 0 guaifenesin 100 mg/5 mL Liquid 10 ml PO Q6 PRN (Reason: Cough) RF: 0 isosorbide mononitrate 60 mg Tablet Extended Release 24 Hr 60 mg PO DAILY RF: 0 hydralazine 50 mg Tablet 50 mg PO TID RF: 0 magnesium hydroxide [Milk of Magnesia] 400 mg/5 mL Suspension 30 ml PO Q72H PRN (Reason: Constipation) RF: 0 bisacodyl [Dulcolax (bisacodyl)] 10 mg Suppository 10 mg VT DAILY PRN (Reason: constipation) RF: 0 Selsun Blue Naturals 3 % Shampoo 1 applic topical 2XWK RF: 0 Fleet Enema 19-7 gram/118 mL Enema 1 applic VT DAILY PRN (Reason: Constipation) RF: 0 Glucagon Emergency Kit (human) 1 mg Recon Soln 1 mg IM DIRECTED PRN (Reason: Hypoglycemia) RF: 0 polyethylene glycol 3350 [Miralax] 17 gram/dose Powder 17 g PO Q2D RF: 0 Maalox Maximum Strength 400-400-40 mg/5 mL Suspension 30 ml PO Q6 PRN (Reason: Indigestion) RF: 0 Insta-Glucose 24 gram/31 gram Gel 1 applic PO DAILY PRN (Reason: Hypoglycemia) RF: 0 Preparation H 0.25-14-74.9 % Ointment 1 applic VT Q12 PRN (Reason: hemorroids) RF: 0 Biotene Dry Mouth Oral Rinse Mouthwash 15 ml PO Q5H PRN (Reason: Dry Mouth) RF: 0 torsemide 20 mg Tablet 40 mg PO BID RF: 0 lorazepam 0.5 mg Tablet 0.5 mg SUBLINGUAL Q12 PRN (Reason: anxiousness) RF: 0 Novolog U-100 Insulin aspart 100 unit/mL Solution 4 unit SUBCUT AC RF: 0 Novolog U-100 Insulin aspart 100 unit/mL Solution 1 sliding scale dose SUBCUT USEASDIRECTD RF: 0 ondansetron 4 mg Tablet,Disintegrating 4 mg PO Q8H PRN (Reason: Nausea And Vomiting) RF: 0 potassium chloride 10 mEq Tablet,Er Particles/Crystals 30 meq PO DAILY RF: 0 Gentamicin Sulf 3% Solution 2 drp OPL TID RF: 0 Discontinued omeprazole 20 mg Tablet,Delayed Release (Dr/Ec) 20 mg PO DAILY Qty: 0 RF: 0 aspirin 81 mg Tablet,Chewable 81 mg PO DAILY Qty: 0 RF: 0 apixaban 2.5 mg Tablet 2.5 mg PO BID Qty: 0 RF: 0 nitrofurantoin monohyd/m-cryst [Macrobid] 100 mg Capsule 100 mg PO BID RF: 0 Stand-Alone Forms: [facility] Discharge Orders: Discharge Order (Routine); Ordered 01/21/19 Ordered By: Tomasz Perez Skilled Items Patient informed of condition?: Yes DNR: Yes Discharge Level of Care: Skilled Communicable Disease: No Discharge Prognosis: Stable Admission Data Admit Date/Time: 01/14/19 12:34 Attending Provider: Tomasz Perez Admit Provider: Jolly Bowles Primary Care Provider: Maged Kay Other Providers: Jolly Bowles ; Ward Roland. Service: Medical Other Interventions: Discharge Summary Assessment (RN) Last Done: 01/21/19 13:50 Pending Studies at Discharge: No DC Date/Time DO NOT enter until pt leaves facility: 01/21/19 14:30
== END 2019-01-21 14:30 | DRG 377 ==
LOC: ED 07:26 → 2S 11:48 → SUATTDRO 12:34 → 2S 13:26 → 4E 01-17 16:51